=== PATIENT | male | born 1960 | race Caucasian/White ===

== ENCOUNTER 2016-09-23 20:09 | Inpatient (IN) | payer MEDICARE ==
[2016-09-23] MEDS ORDERED: KETOROLAC 30 MG/ML 1 ML VIAL IVP STA (21:10)
--- NOTE | 2016-09-23 21:17 | ED ---
Extremity Problem HPI - General Chief complaint: Extremity Problem,Nontraumatic Stated complaint: Foot Pain Time Seen by Provider: 09/23/16 20:58 Source: patient, RN notes reviewed Mode of arrival: wheelchair Limitations: no limitations - History of Present Illness Initial comments: This patient is a 56-year-old man who presents to be evaluated for left foot pain and swelling. The patient is a not a good historian, not able to give most of the details of his recent history, and asks his daughter to provide most of the details. He is able to state that the pain is constant, burning and aching, moderately severe, but gets worse if he attempts to walk or if anything touches his foot. He denies any relieving factors. Patient's daughter is able to state that he had been admitted at [facility] last week, he had a duplex study of his leg that did not show blood clot , and they were discharged after few days. They were told that he was sepsis but were not told the locus of any infection. The patient states that the pain has not improved and that it may be a little worse than when he went in the hospital. They did try to see a vascular surgeon who directed them to come to the emergency department. MD Complaint: extremity pain, extremity swelling Onset/Timin -: month(s) Location: left, lower extremity History of Same: Yes (1 month) Quality: burning, aching Consistency: constant Improves with: nothing Worsens with: weight bearing, walking, palpation Associated Symptoms: denies other symptoms - Related Data Home Medications Medication Instructions Recorded Confirmed Atorvastatin [Lipitor] 40 mg PO HS 09/23/16 09/23/16 Benazepril HCl 20 mg PO DAILY 09/23/16 09/23/16 Citalopram Hydrobromide [CeleXA] 20 mg PO DAILY 09/23/16 09/23/16 Doxycycline Monohydrate [Monodox] 100 mg PO BID 09/23/16 09/23/16 Glimepiride [Amaryl] 1 mg PO AC-BRKFST 09/23/16 09/23/16 Magnesium 400 mg PO DAILY 09/23/16 09/23/16 Omeprazole 40 mg PO DAILY 09/23/16 09/23/16 Potassium Chloride [K-Tab ER] 10 meq PO DAILY 09/23/16 09/23/16 Tamsulosin HCl [Flomax] 0.4 mg PO DAILY 09/23/16 09/23/16 metFORMIN HCL 1,000 mg PO BID 09/23/16 09/23/16 Allergies Allergy/AdvReac Type Severity Reaction Status Date / Time No Known Allergies Allergy Verified 09/23/16 20:52 Review of Systems ROS Statement: Those systems with pertinent positive or pertinent negative responses have been documented in the HPI. ROS Other: All systems not noted in ROS Statement are negative. Constitutional: Denies: fever, chills Respiratory: Denies: cough, dyspnea Cardiovascular: Denies: chest pain, palpitations, syncope Gastrointestinal: Denies: abdominal pain, vomiting, diarrhea Musculoskeletal: Denies: back pain Skin: Denies: rash, lesions Neurological: Denies: headache, weakness, numbness, paresthesias Past Medical History Past Medical History: Diabetes Mellitus, Hyperlipidemia, Hypertension History of Any Multi-Drug Resistant Organisms: None Reported Past Surgical History: Appendectomy, Hernia Repair, Joint Replacement Additional Past Surgical History / Comment(s): right knee Past Psychological History: Depression Smoking Status: Current every day smoker Past Alcohol Use History: None Reported Past Drug Use History: None Reported General Exam Limitations: no limitations General appearance: alert, in no apparent distress Head exam: Present: atraumatic, normocephalic, normal inspection Eye exam: Present: normal appearance. Absent: scleral icterus, conjunctival injection ENT exam: Present: mucous membranes dry Neck exam: Present: normal inspection Respiratory exam: Present: normal lung sounds bilaterally. Absent: respiratory distress, wheezes, rales, rhonchi, stridor Cardiovascular Exam: Present: regular rate, normal rhythm, normal heart sounds. Absent: systolic murmur, diastolic murmur, rubs, gallop GI/Abdominal exam: Present: soft. Absent: tenderness, guarding, rebound Extremities exam: Present: tenderness, other (The patient has some soft tissue swelling to the dorsum of the left foot as well as some mild erythema. There also 2 small vesicles to the dorsum of foot with clear fluid. There is tenderness to palpation of the dorsum of the foot and also up to the ankle and the distal calf area. Patient has pain with passive range of motion, and refuses active range of motion at the ankle.) Back exam: Present: normal inspection. Absent: CVA tenderness (R), CVA tenderness (L) Neurological exam: Present: alert. Absent: motor sensory deficit Skin exam: Present: warm, dry, intact, erythema (Dorsum of left foot), vesicles (Dorsum of left foot). Absent: cyanosis, diaphoretic, petechiae, pallor, mottled Course Vital Signs 09/23/16 09/23/16 09/24/16 20:16 22:56 00:00 Temperature 96.9 F L 98.7 F Pulse Rate 79 71 Respiratory 18 18 16 Rate Blood Pressure 157/85 138/72 O2 Sat by Pulse 97 99 Oximetry Medical Decision Making - Lab Data Result diagrams: 09/23/16 21:25 09/23/16 21:25 Lab Results 09/23/16 09/23/16 09/23/16 Range/Units 21:25 21:25 21:25 WBC 7.7 (3.8-10.6) k/uL RBC 4.34 (4.30-5.90) m/uL Hgb 12.3 L (13.0-17.5) gm/dL Hct 38.2 L (39.0-53.0) % MCV 87.9 (80.0-100.0) fL MCH 28.4 (25.0-35.0) pg MCHC 32.3 (31.0-37.0) g/dL RDW 14.3 (11.5-15.5) % Plt Count 292 (150-450) k/uL Neutrophils % 64 % Lymphocytes % 24 % Monocytes % 5 % Eosinophils % 5 % Basophils % 1 % Neutrophils # 4.9 (1.3-7.7) k/uL Lymphocytes # 1.9 (1.0-4.8) k/uL Monocytes # 0.4 (0-1.0) k/uL Eosinophils # 0.4 (0-0.7) k/uL Basophils # 0.1 (0-0.2) k/uL D-Dimer (<0.60) mg/L FEU Sodium 139 (137-145) mmol/L Potassium 4.2 (3.5-5.1) mmol/L Chloride 104 (98-107) mmol/L Carbon Dioxide 26 (22-30) mmol/L Anion Gap 9 mmol/L BUN 8 L (9-20) mg/dL Creatinine 0.70 (0.66-1.25) mg/dL Est GFR (MDRD) Af Amer >60 (>60 ml/min/1.73 sqM) Est GFR (MDRD) Non-Af >60 (>60 ml/min/1.73 sqM) Glucose 120 H (74-99) mg/dL Plasma Lactic Acid Jose 1.4 (0.7-2.0) mmol/L Calcium 9.7 (8.4-10.2) mg/dL C-Reactive Protein 48.1 H (<10.0) mg/L 09/23/16 Range/Units 21:25 WBC (3.8-10.6) k/uL RBC (4.30-5.90) m/uL Hgb (13.0-17.5) gm/dL Hct (39.0-53.0) % MCV (80.0-100.0) fL MCH (25.0-35.0) pg MCHC (31.0-37.0) g/dL RDW (11.5-15.5) % Plt Count (150-450) k/uL Neutrophils % % Lymphocytes % % Monocytes % % Eosinophils % % Basophils % % Neutrophils # (1.3-7.7) k/uL Lymphocytes # (1.0-4.8) k/uL Monocytes # (0-1.0) k/uL Eosinophils # (0-0.7) k/uL Basophils # (0-0.2) k/uL D-Dimer 0.92 H (<0.60) mg/L FEU Sodium (137-145) mmol/L Potassium (3.5-5.1) mmol/L Chloride (98-107) mmol/L Carbon Dioxide (22-30) mmol/L Anion Gap mmol/L BUN (9-20) mg/dL Creatinine (0.66-1.25) mg/dL Est GFR (MDRD) Af Amer (>60 ml/min/1.73 sqM) Est GFR (MDRD) Non-Af (>60 ml/min/1.73 sqM) Glucose (74-99) mg/dL Plasma Lactic Acid Jose (0.7-2.0) mmol/L Calcium (8.4-10.2) mg/dL C-Reactive Protein (<10.0) mg/L Disposition Clinical Impression: Cellulitis Disposition: ADMITTED IP TO THIS HOSP Condition: Fair
[2016-09-23 21:38] LABS: Basophils # (A) 0.1 k/uL (0-0.2); Basophils % (A) 1 %; CH 28.9; Eosinophils # (A) 0.4 k/uL (0-0.7); Eosinophils % (A) 5 %; HCT 38.2 % (39.0-53.0); HDW 2.79; HGB 12.3 gm/dL (13.0-17.5); Luc # (Auto) 0.14; Luc % (Auto) 2; Lymphocytes # (A) 1.9 k/uL (1.0-4.8); Lymphocytes % (A) 24 %; MCH 28.4 pg (25.0-35.0); MCHC 32.3 g/dL (31.0-37.0); MCV 87.9 fL (80.0-100.0); Mean Platelet Volume 6.2; Monocytes # (A) 0.4 k/uL (0-1.0); Monocytes % (A) 5 %; Neutrophils # (A) 4.9 k/uL (1.3-7.7); Neutrophils % (A) 64 %; RBC 4.34 m/uL (4.30-5.90); RDW 14.3 % (11.5-15.5); WBC 7.7 k/uL (3.8-10.6); WBC (Perox) 7.47
[2016-09-23 22:10] LABS: Anion Gap 9 mmol/L; Blood Urea Nitrogen 8 mg/dL (9-20); C Reactive Protein 48.1 mg/L (<10.0); Calcium 9.7 mg/dL (8.4-10.2); Carbon Dioxide 26 mmol/L (22-30); Chloride 104 mmol/L (98-107); Glucose 120 mg/dL (74-99); Non-African American GFR(MDRD) >60 (>60 ml/min/1.73 sqM); Potassium 4.2 mmol/L (3.5-5.1); Sodium 139 mmol/L (137-145)
--- NOTE | 2016-09-23 22:11 | US ---
EXAMINATION TYPE: US venous doppler duplex LE LT DATE OF EXAM: 09/23/2016 10:03 PM COMPARISON: NONE CLINICAL HISTORY: Pain. Redness, swelling left foot SIDE PERFORMED: Left VESSELS IMAGED: External Iliac Vein (EIV) Common Femoral Vein Deep Femoral Vein Greater Saphenous Vein * Femoral Vein Popliteal Vein Small Saphenous Vein * Proximal Calf Veins (* superficial vessels) TECHNOLOGIST IMPRESSION: Left Leg: Negative for DVT IMPRESSION: Normal exam. No evidence of deep venous thrombosis in the left leg.
[2016-09-23] MEDS ORDERED: RX INFO: IV CONTRAST WAS GIVEN 1 EACH MISC MISCELLANE PRN (22:54)
--- NOTE | 2016-09-23 23:30 | CT ---
EXAMINATION TYPE: CT chest angio for PE DATE OF EXAM: 09/23/2016 11:20 PM COMPARISON: NONE HISTORY: Chest pain CT DLP: mGycm Automated exposure control for dose reduction was used. CONTRAST: Multiple axial sections were obtained from the thoracic inlet to the diaphragm with intravenous contr ast. The contrast was Omnipaque 90 mL. There are 3-D post processed images. FINDINGS: The lungs are clear of consolidation. There is no evidence of pulmonary mass. There is no pleural eff usion. There is no pericardial effusion. Heart size is fairly normal. I see no filling defects in the pulmonary arteries. There are no hilar masses. There is no mediastina l adenopathy. There is no evidence of thoracic aortic aneurysm or dissection. There is spurring in th e thoracic spine. IMPRESSION: No evidence of pulmonary embolism. Negative exam.
[2016-09-24] MEDS ORDERED: HYDROcodone/APAP 5-325MG 1 EACH TAB PO STA (00:26)
[2016-09-24] MEDS ORDERED: IV VANCOMYCIN PER PHARMACY 1 EACH MISC MISCELLANE PRN (00:37)
[2016-09-24] MEDS ORDERED: VANCOMYCIN 2,000 MG in SODIUM CHLORIDE 0.9% 500 ML IVPB STA (00:43)
[2016-09-24] MEDS ORDERED: NALOXONE 0.4 MG/ML 1 ML VIAL IV PRN (01:42)
[2016-09-24] MEDS ORDERED: ONDANSETRON 4 MG/2 ML VIAL IVP PRN (01:42)
[2016-09-24] MEDS: SODIUM CHLORIDE 0.9% 1,000 ML IV SCH ×3 (03:02→20:03)
[2016-09-24] MEDS: HYDROcodone/APAP 5-325MG 1 EACH TAB PO PRN ×5 (05:05→20:04)
[2016-09-24 06:41] LABS: Glucose,Whole Blood 133 mg/dL (75-99)
[2016-09-24] MEDS: LISINOPRIL 20 MG TAB PO SCH (08:20)
[2016-09-24] MEDS: TAMSULOSIN 0.4 MG CAP.ER.24H PO SCH (08:20)
[2016-09-24] MEDS: FAMOTIDINE 20 MG TAB PO SCH ×2 (08:20→20:03)
[2016-09-24] MEDS: CITALOPRAM HYDROBROMIDE 20 MG TAB PO SCH (08:21)
[2016-09-24] MEDS: HEPARIN SODIUM,PORCINE 5,000 UNIT/ML 1 ML VIAL SQ SCH ×3 (08:21→23:32)
[2016-09-24] MEDS ORDERED: DOXYCYCLINE 50 MG CAP PO SCH (09:00)
[2016-09-24] MEDS: VANCOMYCIN 2,000 MG in SODIUM CHLORIDE 0.9% 500 ML IVPB SCH ×2 (10:59→18:20)
--- NOTE | 2016-09-24 11:19 | XR ---
EXAMINATION TYPE: XR ankle complete LT DATE OF EXAM: 09/24/2016 10:53 AM COMPARISON: NONE HISTORY: Ankle pain swelling TECHNIQUE: 3 views left ankle FINDINGS: Diffuse soft tissue swelling is present. No acute fractures are evident. Plantar and Achill es tendon calcaneal heel spurs are present. Ankle mortise is intact. Follow-up study can be performed 7-10 days from acute trauma for continued pain. IMPRESSION: 1. No acute osseous abnormality. 2. Soft tissue swelling. 3. Calcaneal heel spurs.
[2016-09-24] MEDS: MAGNESIUM OXIDE 400 MG TAB PO SCH (11:53)
[2016-09-24] MEDS ORDERED: INFLUENZA VACCINE (3YR+) 60 MCG/0.5 ML SYRINGE IM ONE (11:54)
--- NOTE | 2016-09-24 12:00 | P.CNOR ---
History of Present Illness - HPI Consult date: 09/24/16 Requesting physician: Sanjay Mckeon Consult reason: joint pain (foot, ankle) History of present illness: Patient is 56 year old man seen at bedside this am in consultion for left foot, ankle, lower leg pain and swelling. He states it has been ongoing for a few weeks. He denies recent trauma. He states that he was treated at [facility] for a few days and released after doppler was negative and had IV antibiotics. He has continued foot, ankle, and leg pain with weight bearing and ambulating. He denies current fever, chills, calf pain, shortness breath, numbness, tingling, cough, chest pain or other. Review of Systems All systems: negative Constitutional: Denies chills, Denies fever Eyes: denies blurred vision, denies pain Ears, nose, mouth and throat: Denies headache, Denies sore throat Cardiovascular: Denies chest pain, Denies shortness of breath Respiratory: Denies cough Gastrointestinal: Denies abdominal pain, Denies diarrhea, Denies nausea, Denies vomiting Musculoskeletal: Denies myalgias Integumentary: Denies pruritus, Denies rash Neurological: Denies numbness, Denies weakness Psychiatric: Denies anxiety, Denies depression Endocrine: Denies fatigue, Denies weight change Past Medical History Past Medical History: Diabetes Mellitus, Hyperlipidemia, Hypertension History of Any Multi-Drug Resistant Organisms: None Reported Past Surgical History: Appendectomy, Hernia Repair, Joint Replacement Additional Past Surgical History / Comment(s): right knee Past Anesthesia/Blood Transfusion Reactions: No Reported Reaction Past Psychological History: Depression Smoking Status: Current every day smoker Past Alcohol Use History: None Reported Past Drug Use History: None Reported - Past Family History Mother Family Medical History: Dementia, Diabetes Mellitus, Hyperlipidemia Medications and Allergies Home Medications Medication Instructions Recorded Confirmed Type Atorvastatin [Lipitor] 40 mg PO HS 09/23/16 09/23/16 History Benazepril HCl 20 mg PO DAILY 09/23/16 09/23/16 History Citalopram Hydrobromide [CeleXA] 20 mg PO DAILY 09/23/16 09/23/16 History Doxycycline Monohydrate [Monodox] 100 mg PO BID 09/23/16 09/23/16 History Glimepiride [Amaryl] 1 mg PO AC-BRKFST 09/23/16 09/23/16 History Magnesium 400 mg PO DAILY 09/23/16 09/23/16 History Omeprazole 40 mg PO DAILY 09/23/16 09/23/16 History Potassium Chloride [K-Tab ER] 10 meq PO DAILY 09/23/16 09/23/16 History Tamsulosin HCl [Flomax] 0.4 mg PO DAILY 09/23/16 09/23/16 History metFORMIN HCL 1,000 mg PO BID 09/23/16 09/23/16 History Allergies Allergy/AdvReac Type Severity Reaction Status Date / Time No Known Allergies Allergy Verified 09/23/16 20:52 Physical Examination Mild to moderate diffuse edema is seen at the left lower leg ankle and foot. There is mild erythema. No deformity. Not excessively hot to touch. No fluctuance. Sensation to light touch is intact throughout the lower extremity. He is actively able to dorsiflex and plantarflex the toes and foot but is limited due to pain. The ankle and foot are ligamentously stable. The calf is relatively soft and nontender. There is adequate capillary refill and dorsalis pedis pulse. Results - Labs Labs: Abnormal Lab Results - Last 24 Hours (Table) 09/24/16 Range/Units 06:40 POC Glucose (mg/dL) 133 H (75-99) mg/dL Result Diagrams: 09/23/16 21:25 09/23/16 21:25 Assessment and Plan (1) Cellulitis Narrative/Plan: I have ordered xrays of the foot, ankle and leg. Suspect this is cellulitis that we will monitor. He is currently on IV Vancomycin. Continue pain management and elevation. Will follow and make further recommendations as appropriate. No surgical intervention is planned for now. Thank you for consult. Status: Acute Time with Patient: Less than 30
[2016-09-24] MEDS ORDERED: KETOROLAC 30 MG/ML 1 ML VIAL IVP PRN (12:02)
[2016-09-24 12:18] LABS: Glucose,Whole Blood 123 mg/dL (75-99)
--- NOTE | 2016-09-24 12:56 | HP ---
DATE OF ADMISSION: Patient is a 56-year-old admitted with left foot pain and swelling, has been going on for a few days. Patient does not have any typical symptoms or signs of cellulitis. Patient had severe pain and tenderness, 10/10 sharp pain in the leg with some redness although patient's redness does not look like typical cellulitis. No localized of temperature. Patient was started on vancomycin, admitted here. Patient has elevated d-dimer, because of which patient had a CT angio of chest which was negative. Patient has quite a bit of tenderness upon touching the foot and Doppler of the lower extremity is negative for DVT. Patient denied any fever, chills. Patient denied any nausea, vomiting, abdominal pain. My suspicion is low that this is cellulitis. Patient had an ankle x-ray and tibia, fibular x-ray which are pending. Patient has soft tissue swelling and calcaneal spurs and Orthopedic Surgery evaluated the patient. As my suspicion is significantly low for cellulitis, I will go ahead and consult Orthopedic Surgery. It does not look like patient has necrotizing fasciitis. Patient does not have any leukocytosis and does not look toxic. The differentials being septic arthritis, although as mentioned above, patient does not have any leukocytosis or fever. I could be related to gouty arthritis or osteoarthritis. I am awaiting x-rays and recommendations from Orthopedic Surgery. Patient is already on ketorolac, which will be continued. REVIEW OF SYSTEMS: REVIEW OF SYSTEMS: CONSTITUTIONAL: No fever, no malaise, no fatigue. HEENT: No recent visual problems or hearing problems. Denied any sore throat. CARDIOVASCULAR: No chest pain, orthopnea, PND, no palpitations, no syncope. PULMONARY: No shortness of breath, no cough, no hemoptysis. GASTROINTESTINAL: No diarrhea, no nausea, no vomiting, no abdominal pain. Normoactive bowel sounds. NEUROLOGICAL: No headaches, no weakness, no numbness. HEMATOLOGICAL: Denies any bleeding or petechiae. GENITOURINARY: Denies any burning micturition, frequency, or urgency. MUSCULOSKELETAL/RHEUMATOLOGICAL: Denies any joint pain, swelling, or any muscle pain. ENDOCRINE: Denies any polyuria or polydipsia. EXTREMITIES: As described in HPI. The rest of the 14 point review of systems is negative. Home medications include: 1. Atorvastatin. 2. Benazepril. 3. Citalopram. 4. Doxycycline which patient appears to be using this medication for his bronchitis. 5. Glimepiride. 6. Magnesium. 7. Omeprazole. 8. Potassium chloride. 9. Tamsulosin. 10. Metformin. ALLERGIES: No known drug allergies. PAST MEDICAL HISTORY: Significant for diabetes mellitus, hyperlipidemia, hypertension, obesity, benign prostatic hypertrophy, gastroesophageal reflux disease, depression. Patient had appendectomy, hernia repair, and joint replacement surgery and right knee surgery. SOCIAL HISTORY: Patient does smoke. Denied any alcohol abuse or any drug abuse. FAMILY HISTORY: Significant for diabetes mellitus in multiple family members, dementia and hyperlipidemia. PHYSICAL EXAMINATION: Temperature 98.5, pulse of 60, respiratory rate of 16, blood pressure is 147/76, saturating at 94% on room air. GENERAL: The patient is alert and oriented x3, not in any acute distress. Well developed, well nourished. HEENT: Pupils are round and equally reacting to light. EOMI. No scleral icterus. No conjunctival pallor. Normocephalic, atraumatic. No pharyngeal erythema. No thyromegaly. CARDIOVASCULAR: S1 and S2 present. No murmurs, rubs, or gallops. PULMONARY: Chest is clear to auscultation, no wheezing or crackles. ABDOMEN: Soft, nontender, nondistended, normoactive bowel sounds. No palpable organomegaly. MUSCULOSKELETAL: No joint swelling or deformity. NEUROLOGICAL: Gross neurological examination did not reveal any focal deficits. SKIN: No rashes. EXTREMITIES: Left lower extremity showed significant swelling of the left foot and tenderness on the dorsum of the foot and redness without any localized of temperature and redness extends up to the ankle and distal calf area LABORATORY DATA: CBC, CMP essentially within normal limits. D-dimer is elevated. CT angio of the chest as mentioned above, C-reactive protein is elevated. ASSESSMENT AND PLAN: 1. Left foot swelling and redness. The differentials being: A. Severe osteoarthritis. B. Gouty arthritis. C. Possibility of septic arthritis is low. D. It can be a possibly of cellulitis. E. Significantly low possibility is necrotizing fasciitis. Patient will be continued on antibiotics, will get ( ) of Orthopedic Surgery as well as Infectious Disease. 2. Diabetes mellitus. 3. Hypertension. 4. Hyperlipidemia. 5. Gastroesophageal reflux disease. 6. Benign prostatic hypertrophy. For above mentioned chronic medical problems, I will go ahead and continue his home medications. Doxycycline will be discontinued and regarding depression, citalopram will be continued.
--- NOTE | 2016-09-24 13:32 | XR ---
EXAMINATION TYPE: XR foot complete LT DATE OF EXAM: 09/24/2016 10:53 AM COMPARISON: NONE HISTORY: Swelling, pain TECHNIQUE: 3 view left foot FINDINGS: No acute displaced fractures are evident. Calcaneal heel spurs are present. Joint spaces ap pear preserved. Some mild soft tissue swelling may be present over the dorsum of the foot. IMPRESSION: 1. Mild soft tissue swelling. 2. No acute osseous abnormality. 3. Calcaneal heel spurs.
[2016-09-24 17:05] LABS: Glucose,Whole Blood 106 mg/dL (75-99)
--- NOTE | 2016-09-24 17:20 | XR ---
EXAMINATION TYPE: XR tibia fibula LT DATE OF EXAM: 09/24/2016 10:53 AM COMPARISON: NONE HISTORY: Leg swelling, pain TECHNIQUE: 2 views left tibia and fibula FINDINGS: Soft tissue swelling is at the ankle greater along the lateral malleolus. Degenerative join t changes are at the knee. Calcaneal heel spurs are present. Soft tissues are otherwise unremarkable. Patellofemoral joint space spurring is present. IMPRESSION: 1. Degenerative changes at the knee. 2. Soft tissue swelling lateral malleolus. 3. An acute fracture is not identified.
[2016-09-24 20:24] LABS: Glucose,Whole Blood 93 mg/dL (75-99)
[2016-09-24] MEDS ORDERED: ATORVASTATIN 40 MG TAB PO SCH (21:00)
[2016-09-25] MEDS: SODIUM CHLORIDE 0.9% 1,000 ML IV SCH ×3 (01:55→15:51)
[2016-09-25] MEDS: HYDROcodone/APAP 5-325MG 1 EACH TAB PO PRN ×4 (01:55→17:02)
[2016-09-25] MEDS: VANCOMYCIN 2,000 MG in SODIUM CHLORIDE 0.9% 500 ML IVPB SCH ×2 (01:56→09:23)
[2016-09-25 07:10] LABS: Glucose,Whole Blood 99 mg/dL (75-99)
[2016-09-25 07:35] VITALS: BP 147/88; PULSE 72; RESP 16; TEMP 98
[2016-09-25] MEDS: FAMOTIDINE 20 MG TAB PO SCH (08:03)
[2016-09-25] MEDS: LISINOPRIL 20 MG TAB PO SCH (08:03)
[2016-09-25] MEDS: TAMSULOSIN 0.4 MG CAP.ER.24H PO SCH (08:03)
[2016-09-25] MEDS: HEPARIN SODIUM,PORCINE 5,000 UNIT/ML 1 ML VIAL SQ SCH ×2 (08:03→14:59)
[2016-09-25] MEDS: CITALOPRAM HYDROBROMIDE 20 MG TAB PO SCH (08:03)
[2016-09-25] MEDS ORDERED: VANCOMYCIN TROUGH DUE 1 EACH MISC MISCELLANE ONE (09:00)
[2016-09-25 09:35] LABS: Basophils # (A) 0.1 k/uL (0-0.2); Basophils % (A) 1 %; CH 28.8; Eosinophils # (A) 0.4 k/uL (0-0.7); Eosinophils % (A) 6 %; HGB 11.7 gm/dL (13.0-17.5); Luc # (Auto) 0.09; Luc % (Auto) 2; Lymphocytes # (A) 1.4 k/uL (1.0-4.8); Lymphocytes % (A) 25 %; MCH 28.6 pg (25.0-35.0); MCHC 32.6 g/dL (31.0-37.0); MCV 87.8 fL (80.0-100.0); Mean Platelet Volume 7.4; Monocytes # (A) 0.2 k/uL (0-1.0); Monocytes % (A) 4 %; Neutrophils # (A) 3.6 k/uL (1.3-7.7); Neutrophils % (A) 63 %; RDW 14.1 % (11.5-15.5); WBC 5.8 k/uL (3.8-10.6); WBC (Perox) 5.77
[2016-09-25 09:37] LABS: Anion Gap 8 mmol/L; Blood Urea Nitrogen 10 mg/dL (9-20); Calcium 9.5 mg/dL (8.4-10.2); Carbon Dioxide 22 mmol/L (22-30); Chloride 108 mmol/L (98-107); Glucose 152 mg/dL (74-99); Non-African American GFR(MDRD) >60 (>60 ml/min/1.73 sqM); Potassium 4.6 mmol/L (3.5-5.1); Sodium 138 mmol/L (137-145)
[2016-09-25] MEDS: MAGNESIUM OXIDE 400 MG TAB PO SCH (11:11)
[2016-09-25 12:02] LABS: Glucose,Whole Blood 99 mg/dL (75-99)
--- NOTE | 2016-09-25 13:52 | P.PN ---
Subjective Principal diagnosis: Left foot ankle pain and swelling Patient is seen at bedside today. He's had ongoing left foot ankle pain and swelling. X-rays were obtained of the leg ankle and foot. They show to be negative for fractures, lesions or dislocations. There show that he has osteoarthritis of the ankle and foot joints. He continues to have pain and some swelling today in the foot and ankle. He is denying fever or chills. He denies calf pain. He also denies acute numbness or tingling. He has no new complaints today. Objective - Vital Signs Vital signs: Vital Signs Temp 98.0 F 09/25/16 07:00 Pulse 72 09/25/16 07:00 Resp 16 09/25/16 07:00 BP 147/88 09/25/16 07:00 Pulse Ox 95 09/25/16 07:00 Intake & Output 09/24/16 09/25/16 09/25/16 18:59 06:59 18:59 Intake Total 1540 Output Total 1600 Balance -60 Intake: Oral 1540 Output: Urine 1600 Other: Voiding Method Toilet Urinal # Voids 3 - Exam There is diffuse edema of the ankle and foot. There is minimal erythema. There is no ecchymoses. He has mild diffuse tenderness throughout the foot and ankle. Sensation to light touch is intact throughout the lower leg, foot and toes. Motor is intact with plantarflexion and dorsiflexion of the ankle, foot and toes. Ankle is ligamentously stable. There is no deformity. 1+ dorsalis pedis pulse present less than 2 second cap refill present. Calf is soft and nontender. - Constitutional General appearance: Present: no acute distress - Psychiatric Psychiatric: Present: A&O x's 3, appropriate affect, intact judgment & insight - Labs CBC & Chem 7: 09/25/16 08:54 09/25/16 08:54 Labs: Abnormal Lab Results - Last 24 Hours (Table) 09/24/16 09/25/16 09/25/16 Range/Units 17:03 08:54 08:54 RBC 4.10 L (4.30-5.90) m/uL Hgb 11.7 L (13.0-17.5) gm/dL Hct 36.0 L (39.0-53.0) % Chloride 108 H (98-107) mmol/L Glucose 152 H (74-99) mg/dL POC Glucose (mg/dL) 106 H (75-99) mg/dL - Imaging and Cardiology Xrays of foot, ankle and leg are negative for fractures or lesions. there is eveidence of osteoarthritis of the heel, foot, and ankle. Mild soft tissue swelling evident. Assessment and Plan (1) Cellulitis Narrative/Plan: He is afebrile, has a normal white count and there doesn't appear to be an infectious process. Xrays are negative for fracture. Will start him on indomethicin for OA and gout treatment. Continue pain management and elevation. Antibiotics per IM team. Will follow and make further recommendations as appropriate. No surgical intervention is planned for now. Should he not improve , may consider MRI of the foot and ankle. Status: Acute (2) Osteoarthritis of foot, left Status: Acute Time with Patient: Less than 30
[2016-09-25] MEDS ORDERED: INDOMETHACIN 25 MG CAP PO SCH (16:00)
--- NOTE | 2016-09-25 16:44 | CONS ---
DATE OF CONSULTATION: 09/25/2016 REASON FOR CONSULTATION: Left ankle pain and swelling with question of cellulitis. HISTORY OF PRESENT ILLNESS: The patient is a 56-year-old male who was brought into the ER on 09/23/2016 with chief complaints of left foot pain and swelling. Apparently his symptoms have been going on for about a few days prior to presentation to the hospital. Patient denies having any trauma to the ankle area or any twisting of the ankle. No falls. He did have mostly swelling and pain. Pain is described to be constant burning and worse when he walks on it. Unable to touch it. The patient denies any high-grade fever, rigors or chills. Subsequently, the patient has been evaluated by the ER physician. The patient did have extensive work-up including extremity Doppler which was negative for DVT. Ankle x-ray was showing some soft tissue swelling. Patient did not have any fever. On arrival to the ER temperature was 96.9 and did not have an elevated white count. White count was normal at 7.7. Subsequently, patient has been admitted to the hospital. The patient has been started on broad spectrum antibiotics in the form of vancomycin. I was asked to see the patient for further recommendation regarding antibiotic therapy. Patient does give a history of recent admission to [facility] for sepsis, although the patient is not sure exactly the source. He says at one time it was pneumonia, but he is not sure what antibiotic he was treated with you. REVIEW OF SYSTEMS: CONSTITUTIONAL: Positive for weakness but no fever or chills. EYES: No complaint. ENT: No complaint. RESPIRATORY: No complaint. CARDIOVASCULAR: No complaint. GENITOURINARY: No complaint. GASTROINTESTINAL: No complaint. MUSCULOSKELETAL: As per HPI. INTEGUMENTARY: As per HPI. PSYCHOLOGIC: No complaint. ENDOCRINE: No complaint. NEUROLOGIC: No complaint. PAST MEDICAL HISTORY: Hypertension, hyperlipidemia, diabetes melitis and this admission to [facility] for possible sepsis pneumonia. PAST SURGICAL HISTORY: Right ankle increased pain, appendectomy and hernia repair. SOCIAL HISTORY: The patient currently every day smoker. Denies drinking or drug use. FAMILY HISTORY: No pertinent findings noticed. ALLERGIES: No known drug allergies. Medications currently include the patient is on [place], Lipitor, Celexa, Pepcid, heparin, Indocin, Zestril, Mag oxide, Narcan, Zofran, Flomax and vancomycin. On examination, blood pressure is 147/88 with a pulse of 72, temperature 98. He is 95% on room air. General description is a middle-age male lying in bed in no distress. No tachypnea or accessory muscle of respiration use. HEENT examination shows slight pallor. There is no scleral icterus. Oral mucous membrane is membranes dry. NECK: Trachea central. There is no thyromegaly. LUNGS: Unlabored breathing. Clear to auscultation anteriorly. No wheeze or crackle. HEART: S1, S2. Regular rate and rhythm. ABDOMEN: Soft, no tenderness. No guarding or rigidity. EXTREMITIES: On the left leg he has about 2+ edema of feet. The ankle is slightly swollen. I did not appreciate any redness or any warmth to touch. There was no skin breakdown. There is no drainage. NEUROLOGICAL: The patient is awake, alert, oriented x3. Mood and affect normal. LABS: Hemoglobin is 11.7, white count 5.8 with a BUN of 10, creatinine 0.80. Electrolytes have been normal. Uric acid was not checked. Vanco trough was 27. Blood culture has been negative. X-rays of the ankle joint as mentioned above. Diagnostic impression and plan: Patient with left ankle swelling and pain, could more likely be secondary to underlying osteoarthritis or a gouty arthritis needs to be ruled out. Clinically doubt cellulitis or any joint infection as the patient is not running any fever. There is no significant redness of the ankle area and no elevated white count. PLAN: 1. Vancomycin can be safely discontinued. 2. Will check a uric acid level and may benefit from antiinflammatory medication. 3. If no improvement or any worsening pain, he may benefit from MRI of the ankle joint. 4. Will follow up on his clinical condition to further adjust the medication if needed. Plan of care was discussed in detail with the attending on the floor.
[2016-09-25] MEDS ORDERED: VANCOMYCIN 2,000 MG in SODIUM CHLORIDE 0.9% 500 ML IVPB SCH (21:00)
--- NOTE | 2016-09-26 12:35 | P.DS ---
Providers Date of admission: 09/24/16 01:42 Expected date of discharge: 09/25/16 Attending physician: Mara Maxwell. Consults: 09/24/16 14:50 Consult Physician Routine Consulting Provider: Radha Lehman Consult Reason/Comments: septic arthritis vs cellulitis Do you want consulting provider notified?: Yes Dr. Mckeon, Orthopedics Primary care physician: Jenna [place] Hospital Course: Final Diagnoses: 1. Left foot edema, redness, related to acute Osteoarthritis of the left foot with suspected gout. Doubt cellulitis or infectious process given clinical presentation. Afebrile with normal WBC, insignificant redness of ankle area. 2. Diabetes mellitus 3. Hypertension 4. Hyperlipidemia 5. Gastroesophageal reflux disease 6. Benign prostatic hypertrophy Hospital course: This a 56-year-old gentleman admitted with severe left foot pain, tenderness without typical signs or symptoms of cellulitis, afebrile, normal WBC, extremity without localized temperature. Treated empirically with vancomycin. Elevated d-dimer, negative CTA of chest. Doppler negative for DVT. X-rays of foot, ankle and leg negative for fractures, dislocations or lesions but with evidence of osteoarthritis of the heel, foot and ankle with mild soft tissue swelling present. No numbness or tingling .Indocin added to med regime with significant clinical improvement. Pain controlled with both Toradol and [place]. Evaluated by both infectious disease and orthopedics. Vancomycin discontinued as per ID. Uric acid level ordered and pending. If condition should worsen, patient may benefit from MRI. Patient has been cleared for discharge by both orthopedic and infectious disease. Patient is being discharged home in a stable condition with guarded prognosis. The impression and plan of care has been dictated as directed. : I performed a H&P examination of this patient and discussed the same with the dictator. I agree with the dictator's note. Any additional findings/opinions/ etc. will be noted. Patient Condition at Discharge: Stable Plan - Discharge Summary New Discharge Prescriptions: HYDROcodone/APAP 5-325MG [[place] 5-325] 1 each PO Q4HR PRN #20 tab PRN Reason: Moderate Pain Indomethacin [Indocin] 50 mg PO TID #84 cap Discharge Medication List Atorvastatin [Lipitor] 40 mg PO HS 09/23/16 [History] Benazepril HCl 20 mg PO DAILY 09/23/16 [History] Citalopram Hydrobromide [CeleXA] 20 mg PO DAILY 09/23/16 [History] Glimepiride [Amaryl] 1 mg PO [id number] 09/23/16 [History] Magnesium 400 mg PO DAILY 09/23/16 [History] Omeprazole 40 mg PO DAILY 09/23/16 [History] Potassium Chloride [K-Tab ER] 10 meq PO DAILY 09/23/16 [History] Tamsulosin HCl [Flomax] 0.4 mg PO DAILY 09/23/16 [History] metFORMIN HCL 1,000 mg PO BID 09/23/16 [History] HYDROcodone/APAP 5-325MG [[place] 5-325] 1 each PO Q4HR PRN #20 tab 09/25/16 [Rx] Indomethacin [Indocin] 50 mg PO TID #84 cap 09/25/16 [Rx] Follow up Appointment(s)/Referral(s): Jenna Sandhu MD [Primary Care Provider] - 3 Days Sanjay Mckeon MD [STAFF PHYSICIAN] - As Needed Patient Instructions/Handouts: Cellulitis (DC), Type 2 Diabetes in Adults (DC) Activity/Diet/Wound Care/Special Instructions: Regarding weightbearing, refer to orthopedics recommendations. Diet: Consistent carb Accu-Cheks before meals and at bedtime, Discharge Disposition: HOME SELF-CARE
[2016-09-26 13:17] LABS: Uric Acid 4.5 mg/dL (3.5-8.5)
== END 2016-09-25 17:47 | disposition home or self-care (01) | DRG 554 ==
LOC: EC 20:09 → 4MS4W 09-24 01:42
PROVIDERS: ADMIT Hospitalist; ATTEND Hospitalist
PROC: 3E0234Z Introduction of Serum, Toxoid and Vaccine into Muscle, Percutaneous Approach (ICD-10-PCS; principal; 2016-09-24)
DX: M19.072 Primary osteoarthritis, left ankle and foot (principal); Z68.41 Body mass index [BMI] 40.0-44.9, adult; E66.9 Obesity, unspecified; Z71.3 Dietary counseling and surveillance; M10.9 Gout, unspecified; M77.32 Calcaneal spur, left foot; Z23 Encounter for immunization; F32.9 Major depressive disorder, single episode, unspecified; I10 Essential (primary) hypertension; E11.9 Type 2 diabetes mellitus without complications; E78.5 Hyperlipidemia, unspecified; N40.0 Benign prostatic hyperplasia without lower urinary tract symptoms; F17.200 Nicotine dependence, unspecified, uncomplicated; K21.9 Gastro-esophageal reflux disease without esophagitis; Z79.84 Long term (current) use of oral hypoglycemic drugs; Z79.899 Other long term (current) drug therapy
CPT/HCPCS: 36415; 71275; 80048; 80202; 83605; 84550; 85025; 85379; 86140; 87040; 90686; 96365; 96366; 96375; 99285

== ENCOUNTER → 2016-10-18 | Outpatient (CLI) | payer MEDICARE ==
--- NOTE | 2016-10-18 13:25 | US ---
EXAMINATION TYPE: US venous doppler duplex LE LT DATE OF EXAM: 10/18/2016 1:03 PM COMPARISON: NONE CLINICAL HISTORY: I80.9 Phlebitis, M79.662 LLE pain. SIDE PERFORMED: Left VESSELS IMAGED: External Iliac Vein (EIV) Common Femoral Vein Deep Femoral Vein Greater Saphenous Vein * Femoral Vein Popliteal Vein Small Saphenous Vein * Proximal Calf Veins (* superficial vessels Left Leg: Negative for DVT IMPRESSION: 1. No evidence of DVT as visualized.
== END | disposition home or self-care (01) ==
LOC: RADUSWWP 12:38
PROVIDERS: ATTEND Orthopaedic Surgery
DX: I80.9 Phlebitis and thrombophlebitis of unspecified site (principal); M79.672 Pain in left foot; E11.9 Type 2 diabetes mellitus without complications; M79.662 Pain in left lower leg

== ENCOUNTER 2016-12-11 17:08 | Inpatient (IN) | payer MEDICARE ==
[2016-12-11] MEDS ORDERED: SODIUM CHLORIDE 0.9% 1,000 ML IV STA (18:06)
--- NOTE | 2016-12-11 18:14 | ED ---
Lower Extremity Injury HPI - General Chief Complaint: Extremity Injury, Lower Stated Complaint: Left Foot numbness Time Seen by Provider: 12/11/16 17:53 Source: patient, RN notes reviewed, old records reviewed Mode of arrival: wheelchair Limitations: no limitations - History of Present Illness Initial Comments: This is a 56-year-old male presents emergency Department with chief complaint of one month of left foot and first and second toe pain. Patient reports that the pain is so severe sometimes he wants to shoot himself. Patient states that he does not necessarily feel suicidal he just said this to his family members and to the triage nurse. Patient reports that he has noticed significant swelling starting from the foot up the back of the leg. He reports he occasionally has pain over the lateral aspect of the calf. Patient denies any fever or chills. Reports that he has a history of diabetes, hypertension, hyperlipidemia, hernia repair surgeries and appendix repair surgery. Patient states that this pain initially started after he had his toenails clipped and removed by a strip stamp straightener. Patient reports that since then the pain is became much worse. There pain is mainly over the great and the second toe. - Related Data Home Medications Medication Instructions Recorded Confirmed Atorvastatin [Lipitor] 40 mg PO HS 09/23/16 12/11/16 Benazepril HCl 20 mg PO HS 09/23/16 12/11/16 Citalopram Hydrobromide [CeleXA] 20 mg PO HS 09/23/16 12/11/16 Glimepiride [Amaryl] 1 mg PO HS 09/23/16 12/11/16 Omeprazole 40 mg PO HS 09/23/16 12/11/16 metFORMIN HCL 1,000 mg PO BID 09/23/16 12/11/16 Gabapentin [Neurontin] 200 mg PO HS 12/11/16 12/11/16 Allergies Allergy/AdvReac Type Severity Reaction Status Date / Time No Known Allergies Allergy Verified 12/11/16 17:57 Review of Systems ROS Statement: Those systems with pertinent positive or pertinent negative responses have been documented in the HPI. ROS Other: All systems not noted in ROS Statement are negative. Past Medical History Past Medical History: Diabetes Mellitus, Hyperlipidemia, Hypertension History of Any Multi-Drug Resistant Organisms: None Reported Past Surgical History: Appendectomy, Hernia Repair, Joint Replacement Additional Past Surgical History / Comment(s): right knee Past Anesthesia/Blood Transfusion Reactions: No Reported Reaction Past Psychological History: Depression Smoking Status: Current every day smoker Past Alcohol Use History: None Reported Past Drug Use History: None Reported - Past Family History Mother Family Medical History: Dementia, Diabetes Mellitus, Hyperlipidemia General Exam - General Exam Comments Initial Comments: This is a pleasant 56-year-old male. Patient does not appear to be in any acute distress. Limitations: no limitations General appearance: alert, in no apparent distress Head exam: Present: atraumatic, normocephalic, normal inspection Eye exam: Present: normal appearance, PERRL, EOMI. Absent: scleral icterus, conjunctival injection, periorbital swelling ENT exam: Present: normal exam, mucous membranes moist Neck exam: Present: normal inspection. Absent: tenderness, meningismus, lymphadenopathy Respiratory exam: Present: normal lung sounds bilaterally. Absent: respiratory distress, wheezes, rales, rhonchi, stridor Cardiovascular Exam: Present: regular rate, normal rhythm, normal heart sounds. Absent: systolic murmur, diastolic murmur, rubs, gallop, clicks GI/Abdominal exam: Present: soft, normal bowel sounds. Absent: distended, tenderness, guarding, rebound, rigid Extremities exam: Present: normal inspection, full ROM, normal capillary refill. Absent: tenderness, pedal edema, joint swelling, calf tenderness Left Knee exam: Present: normal inspection, full ROM Lower Leg exam: Present: normal inspection, full ROM, erythema (Some mild erythema extending up the ankle up to the lower calf.) Ankle exam: Present: full ROM, swelling, erythema (Patient has slight erythema extending over the ankle up to the lower calf.). Absent: normal inspection Foot/Toe exam: Present: tenderness (Patient has tenderness over the entire foot. More significant swelling and tenderness over the first and second toes where the nail bed is.), swelling, erythema. Absent: normal inspection, ecchymosis Gait: observed and limited by pain 1 - erythema and swelling 2 - erythema and swelling Back exam: Present: normal inspection Neurological exam: Present: alert, oriented X3, CN II-XII intact Psychiatric exam: Present: normal affect. Absent: normal mood, suicidal ideation (Patient reports that he had suicidal statements due to the pain of his foot. Patient states that is not 100% how he feels. She reports the pain becomes so severe he becomes depressed. Patient actively denies suicidal thoughts.) Skin exam: Present: warm, dry, intact, normal color. Absent: rash Course Vital Signs 12/11/16 12/11/16 12/11/16 17:35 20:00 21:00 Temperature 99.2 F Pulse Rate 89 94 16 L Respiratory 20 20 70 H Rate Blood Pressure 103/59 119/64 122/67 O2 Sat by Pulse 98 98 95 Oximetry Medical Decision Making - Medical Decision Making Is a 56-year-old male chief complaint of left first and second toe pain after having toenail removal procedure by his strip stamp straightener month ago. Patient reports that the had increased swelling and pain over his entire foot and back of his calf. He also reports that when he was in the triage that he was stating that he wanted to shoot his foot and should his head due to the pain of his foot. He denies any specific suicidal thoughts. will receive Doppler ultrasound , IV fluids and lab work. Patient's ultrasound that showed positive DVT in the left leg extending up to the left femoral vein to the left superior calf veins. Patient will be started on Lovenox. Discussed the case with Dr. Lim. Also treating the patient for a superficial cellulitis of the toes. Patient started on Rocephin. Discussed that we can admit the patient. The For IV fluids, pain management and DVT , cellulitis treatment. - Lab Data Result diagrams: 12/11/16 18:30 12/11/16 18:30 Lab Results 12/11/16 12/11/16 12/11/16 Range/Units 18:30 18:30 19:41 WBC 7.4 (3.8-10.6) k/uL RBC 5.10 (4.30-5.90) m/uL Hgb 14.6 (13.0-17.5) gm/dL Hct 44.6 (39.0-53.0) % MCV 87.4 (80.0-100.0) fL MCH 28.5 (25.0-35.0) pg MCHC 32.7 (31.0-37.0) g/dL RDW 14.5 (11.5-15.5) % Plt Count 233 (150-450) k/uL Neutrophils % 67 % Lymphocytes % 22 % Monocytes % 5 % Eosinophils % 4 % Basophils % 1 % Neutrophils # 4.9 (1.3-7.7) k/uL Lymphocytes # 1.7 (1.0-4.8) k/uL Monocytes # 0.4 (0-1.0) k/uL Eosinophils # 0.3 (0-0.7) k/uL Basophils # 0.1 (0-0.2) k/uL Sodium 140 (137-145) mmol/L Potassium 4.7 (3.5-5.1) mmol/L Chloride 106 (98-107) mmol/L Carbon Dioxide 25 (22-30) mmol/L Anion Gap 9 mmol/L BUN 10 (9-20) mg/dL Creatinine 0.80 (0.66-1.25) mg/dL Est GFR (MDRD) Af Amer >60 (>60 ml/min/1.73 sqM) Est GFR (MDRD) Non-Af >60 (>60 ml/min/1.73 sqM) Glucose 100 H (74-99) mg/dL Uric Acid 5.2 (3.5-8.5) mg/dL Calcium 11.2 H (8.4-10.2) mg/dL Total Bilirubin 0.7 (0.2-1.3) mg/dL AST 20 (17-59) U/L ALT 34 (21-72) U/L Alkaline Phosphatase 105 (38-126) U/L Total Protein 7.1 (6.3-8.2) g/dL Albumin 4.2 (3.5-5.0) g/dL Urine Opiates Screen Not Detected (NotDetected) Ur Oxycodone Screen Not Detected (NotDetected) Urine Methadone Screen Not Detected (NotDetected) Ur Propoxyphene Screen Not Detected (NotDetected) Ur Barbiturates Screen Not Detected (NotDetected) U Tricyclic Antidepress Not Detected (NotDetected) Ur Phencyclidine Scrn Not Detected (NotDetected) Ur Amphetamines Screen Not Detected (NotDetected) U Methamphetamines Scrn Not Detected (NotDetected) U Benzodiazepines Scrn Not Detected (NotDetected) Urine Cocaine Screen Not Detected (NotDetected) U Marijuana (THC) Screen Not Detected (NotDetected) - Radiology Data Radiology results: report reviewed There is a DVT in the left leg involving the femoral vein and popliteal vein extending into the calf veins. This appears new compared to last exam at 2016. Foot x-ray shows calcaneal spurring. No fracture or no change. Disposition Clinical Impression: Cellulitis of left foot, Left leg DVT Disposition: ADMITTED IP TO THIS HOSP Condition: Good Time of Disposition: 20:15
[2016-12-11 18:42] LABS: Basophils # (A) 0.1 k/uL (0-0.2); Basophils % (A) 1 %; CH 28.2; CHCM 32.4; Eosinophils # (A) 0.3 k/uL (0-0.7); Eosinophils % (A) 4 %; HCT 44.6 % (39.0-53.0); HDW 2.74; HGB 14.6 gm/dL (13.0-17.5); Luc # (Auto) 0.13; Luc % (Auto) 2; Lymphocytes # (A) 1.7 k/uL (1.0-4.8); Lymphocytes % (A) 22 %; MCH 28.5 pg (25.0-35.0); MCHC 32.7 g/dL (31.0-37.0); MCV 87.4 fL (80.0-100.0); Mean Platelet Volume 6.5; Monocytes # (A) 0.4 k/uL (0-1.0); Monocytes % (A) 5 %; Neutrophils # (A) 4.9 k/uL (1.3-7.7); Neutrophils % (A) 67 %; RDW 14.5 % (11.5-15.5); WBC 7.4 k/uL (3.8-10.6); WBC (Perox) 7.29
[2016-12-11 18:56] LABS: ALT 34 U/L (21-72); AST 20 U/L (17-59); Alkaline Phosphatase 105 U/L (38-126); Anion Gap 9 mmol/L; Blood Urea Nitrogen 10 mg/dL (9-20); Calcium 11.2 mg/dL (8.4-10.2); Carbon Dioxide 25 mmol/L (22-30); Chloride 106 mmol/L (98-107); Glucose 100 mg/dL (74-99); Non-African American GFR(MDRD) >60 (>60 ml/min/1.73 sqM); Potassium 4.7 mmol/L (3.5-5.1); Sodium 140 mmol/L (137-145); Total Bilirubin 0.7 mg/dL (0.2-1.3); Total Protein 7.1 g/dL (6.3-8.2); Uric Acid 5.2 mg/dL (3.5-8.5)
--- NOTE | 2016-12-11 19:15 | XR ---
EXAMINATION TYPE: XR foot complete LT DATE OF EXAM: 12/11/2016 6:46 PM COMPARISON: 09/24/2016 HISTORY: Swelling TECHNIQUE: 3 views FINDINGS: The metatarsals appear intact. I see no fracture nor dislocation. There are plantar and Ach illes calcaneal spurs. There are no erosions. IMPRESSION: Calcaneal spurring. No fracture. No change.
--- NOTE | 2016-12-11 19:35 | US ---
EXAMINATION TYPE: US venous doppler duplex LE LT DATE OF EXAM: 12/11/2016 7:23 PM COMPARISON: Prior in PACS CLINICAL HISTORY: Pain in left foot. Swelling SIDE PERFORMED: Left TECHNIQUE: The lower extremity deep venous system is examined utilizing real time linear array sonog maco with graded compression, doppler sonography and color-flow sonography. VESSELS IMAGED: External Iliac Vein (EIV) Common Femoral Vein Deep Femoral Vein Greater Saphenous Vein * Femoral Vein Popliteal Vein Small Saphenous Vein * Proximal Calf Veins (* superficial vessels) Left Leg: ++Positive for DVT extending from the left CFV to the left proximal calf veins IMPRESSION: There is deep venous thrombosis in the left leg involving the femoral vein and popliteal vein and extending into the calf veins. This appears new compared to last exam of 10/18/2016.
[2016-12-11] MEDS ORDERED: ENOXAPARIN 120 MG/0.8 ML SYRINGE SQ STA (20:18)
[2016-12-11] MEDS ORDERED: HYDROmorphone 1 MG/ML 1 ML SYRINGE IVP STA (20:19)
[2016-12-11] MEDS ORDERED: ACETAMINOPHEN TAB 325 MG TAB PO PRN (20:40)
[2016-12-11] MEDS ORDERED: NALOXONE 0.4 MG/ML 1 ML VIAL IV PRN (20:40)
[2016-12-11] MEDS ORDERED: KETOROLAC 30 MG/ML 1 ML VIAL IVP PRN (20:40)
[2016-12-11] MEDS ORDERED: ONDANSETRON 4 MG/2 ML VIAL IVP PRN (20:40)
[2016-12-11] MEDS ORDERED: ALPRAZolam 0.25 MG TAB PO PRN (20:40)
[2016-12-11] MEDS ORDERED: CITALOPRAM HYDROBROMIDE 20 MG TAB PO SCH (21:00)
[2016-12-11] MEDS ORDERED: GLIMEPIRIDE 1 MG TAB PO SCH (21:00)
[2016-12-11] MEDS ORDERED: ATORVASTATIN 40 MG TAB PO SCH (21:00)
[2016-12-11] MEDS ORDERED: GABAPENTIN 100 MG CAP PO SCH (21:00)
[2016-12-11] MEDS ORDERED: LISINOPRIL 20 MG TAB PO SCH (21:00)
[2016-12-11] MEDS ORDERED: NON-FORMULARY DRUG (Omeprazole [Omeprazole] 40 MG) PO SCH (21:00)
[2016-12-11] MEDS: metFORMIN 500 MG TAB PO SCH (23:41)
[2016-12-11] MEDS: SODIUM CHLORIDE 0.9% 1,000 ML IV SCH (23:44)
[2016-12-11 23:56] VITALS: BMI 39.8
[2016-12-12] MEDS: HYDROmorphone 1 MG/ML 1 ML SYRINGE IV PRN ×3 (00:18→08:04)
[2016-12-12 00:19] VITALS: RESP 18
[2016-12-12 05:59] LABS: Glucose,Whole Blood 93 mg/dL (75-99)
[2016-12-12] MEDS: SODIUM CHLORIDE 0.9% 1,000 ML IV SCH (07:52)
[2016-12-12] MEDS: metFORMIN 500 MG TAB PO SCH (08:05)
[2016-12-12 08:17] VITALS: BP 132/89; PULSE 71; TEMP 97.7
[2016-12-12] MEDS ORDERED: PANTOPRAZOLE 40 MG/10 ML VIAL IV SCH (09:00)
[2016-12-12 11:36] LABS: Glucose,Whole Blood 109 mg/dL (75-99)
[2016-12-12 12:53] LABS: Anion Gap 8 mmol/L; Blood Urea Nitrogen 13 mg/dL (9-20); Calcium 10.4 mg/dL (8.4-10.2); Carbon Dioxide 24 mmol/L (22-30); Chloride 109 mmol/L (98-107); Glucose 90 mg/dL (74-99); Non-African American GFR(MDRD) >60 (>60 ml/min/1.73 sqM); Potassium 4.3 mmol/L (3.5-5.1); Sodium 141 mmol/L (137-145)
--- NOTE | 2016-12-12 14:22 | HP ---
DATE OF ADMISSION: This dictation is both H&P and Discharge Summary. A 56-year-old came in with complaints of pain in the left calf area which has been going on for about a month he says and patient was found to have DVT in that leg and patient had recent surgery for ingrown nail, although patient is ambulatory after the surgery and I do not believe that contributed to his blood clot. Patient denied any family history of blood clot, but does have family history of gastric cancer and breast cancer history in the family and the patient did lose around 25 pounds of weight in the last 3 to 4 months he says. Patient is a smoker, because of that reason, patient will need to be evaluated for regular cancer screenings including colonoscopy, PSA testing and chest CT as he is a smoker to rule out any pulmonary nodules or any cancerous lesions. Patient will be evaluated for approval for Xarelto and if patient is able to afford the co-pay, patient will be discharged on Xarelto which can be discontinued in 6 months and for about a month to 1-1/2 month and needs to be worked up for procoagulant conditions at that time and if he is found to have procoagulant conditions, patient will need to continue anticoagulation. Although the rest of the work-up needs to be done as an outpatient. Patient will be discharged today and did patient denied any fever, chills. Patient denied any cough, runny nose, abdominal pain, dysuria. REVIEW OF SYSTEMS: CONSTITUTIONAL: No fever, no malaise, no fatigue. HEENT: No recent visual problems or hearing problems. Denied any sore throat. CARDIOVASCULAR: No chest pain, orthopnea, PND, no palpitations, no syncope. PULMONARY: No shortness of breath, no cough, no hemoptysis. GASTROINTESTINAL: No diarrhea, no nausea, no vomiting, no abdominal pain. Normoactive bowel sounds. NEUROLOGICAL: No headaches, no weakness, no numbness. HEMATOLOGICAL: Denies any bleeding or petechiae. GENITOURINARY: Denies any burning micturition, frequency, or urgency. MUSCULOSKELETAL/RHEUMATOLOGICAL: Denies any joint pain, swelling, or any muscle pain. ENDOCRINE: Denies any polyuria or polydipsia. EXTREMITIES: Left extremity as mentioned above. The rest of the 14 point review of systems is negative. Home medications include: 1. Atorvastatin. 2. Benazepril. 3. Citalopram. 4. [place]. 5. Glimepiride. 6. Omeprazole. 7. Metformin. 8. Gabapentin. ALLERGIES: No known drug allergies. PAST MEDICAL HISTORY: Significant for diabetes mellitus, hyperlipidemia, hypertension, appendectomy, hernia repair, joint replacement surgery, depression. SOCIAL HISTORY: Patient does smoke 1 pack per day. Denied any alcohol abuse or any drug abuse. FAMILY HISTORY: As mentioned in the HPI itself. PHYSICAL EXAMINATION: VITAL SIGNS: Temperature 97.7, pulse of 94, respiratory rate of 18, blood pressure is 132/89, saturating at 93% on room air. GENERAL EXAMINATION: Obese gentleman, alert and oriented x3. LEFT LOWER EXTREMITY: Patient has pain and tenderness in the left calf area secondary to DVT. HEENT: Pupils are round and equally reacting to light. EOMI. No scleral icterus. No conjunctival pallor. Normocephalic, atraumatic. No pharyngeal erythema. No thyromegaly. CARDIOVASCULAR: S1 and S2 present. No murmurs, rubs, or gallops. PULMONARY: Chest is clear to auscultation, no wheezing or crackles. ABDOMEN: Soft, nontender, nondistended, normoactive bowel sounds. No palpable organomegaly. MUSCULOSKELETAL: No joint swelling or deformity. NEUROLOGICAL: Gross neurological examination did not reveal any focal deficits. SKIN: No rashes. LABORATORY DATA: CBC, CMP, essentially within normal limits. [place] urine drug screen are negative. Other significant lab data include hypercalcemia of 11.2, which is minimally elevated and will repeat the calcium level. If it continues to be elevated, patient will further needs to be evaluated with an intact PTH and also will benefit from outpatient oncology work-up and referral to Hematology-Oncology. ASSESSMENT AND PLAN: 1. Left lower extremity deep venous thrombosis management as mentioned above. 2. Hypercalcemia. Management as mentioned during the discussion of lab data. 3. Hyperlipidemia. 4. Hypertension. 5. Obesity. Counseling was provided. 6. Unintentional weight loss in 3 months. Management as mentioned above. Outpatient work-up for common cancers and the screening procedures. For above-mentioned chronic medical problems, will continue with home medications. Patient apparently will repeat the calcium level and if it close to normal, patient will be discharged today. Otherwise patient will need an intact PTH along with work-up for any cancers as soon as possible. This dictation is both H&P and discharge summary. If patient is discharged, patient will follow with Dr. Jenna Sandhu in about 3 to 7 days. Activity as tolerated. Cardiac and diabetic, 1800 calorie diet. Nicotine cessation counseling was provided.
[2016-12-12] MEDS ORDERED: RIVAROXABAN 15 MG TAB PO STA (15:32)
[2016-12-13] MEDS ORDERED: PANTOPRAZOLE 40 MG TABLET PO SCH (07:30)
== END 2016-12-12 15:45 | disposition home or self-care (01) | DRG 300 ==
LOC: EC 17:08 → 5MS5E 21:04
PROVIDERS: ADMIT Internal Medicine; ATTEND Internal Medicine
DX: I82.412 Acute embolism and thrombosis of left femoral vein (principal); L03.116 Cellulitis of left lower limb; I82.432 Acute embolism and thrombosis of left popliteal vein; I10 Essential (primary) hypertension; E11.9 Type 2 diabetes mellitus without complications; L03.039 Cellulitis of unspecified toe; E83.52 Hypercalcemia; F17.200 Nicotine dependence, unspecified, uncomplicated; E78.5 Hyperlipidemia, unspecified; E66.9 Obesity, unspecified; F32.9 Major depressive disorder, single episode, unspecified; Z71.3 Dietary counseling and surveillance; Z96.60 Presence of unspecified orthopedic joint implant; Z68.39 Body mass index [BMI] 39.0-39.9, adult; Z79.84 Long term (current) use of oral hypoglycemic drugs; Z79.899 Other long term (current) drug therapy
CPT/HCPCS: 36415; 80048; 80053; 80306; 82075; 84550; 85025; 96365; 96372; 96375; 99285

== ENCOUNTER 2017-02-24 07:53 | Day surgery (SDC) | payer MEDICARE ==
[2017-02-20 14:15] VITALS: BMI 41.1
[~2017-02-24 07:53] MED LIST: ALPRAZolam 0.25 MG TAB PO PRN; ASPIRIN 325 MG TAB PO STA; SODIUM CHLORIDE 0.9% 1,000 ML in EMPTY BAG 1 BAG IV ONE
[2017-02-24 08:33] LABS: Glucose,Whole Blood 123 mg/dL (75-99)
[2017-02-24 08:47] VITALS: PULSE 82; TEMP 98
[2017-02-24 08:52] LABS: Basophils % (A) 0 %; CH 28.3; CHCM 32.7; Eosinophils # (A) 0.3 k/uL (0-0.7); Eosinophils % (A) 4 %; HCT 45.4 % (39.0-53.0); HDW 2.63; HGB 15.1 gm/dL (13.0-17.5); Luc # (Auto) 0.13; Luc % (Auto) 2; Lymphocytes # (A) 1.9 k/uL (1.0-4.8); Lymphocytes % (A) 25 %; MCHC 33.3 g/dL (31.0-37.0); MCV 86.9 fL (80.0-100.0); Mean Platelet Volume 6.5; Monocytes # (A) 0.3 k/uL (0-1.0); Monocytes % (A) 5 %; Neutrophils # (A) 4.7 k/uL (1.3-7.7); Neutrophils % (A) 64 %; RBC 5.23 m/uL (4.30-5.90); RDW 15.2 % (11.5-15.5); WBC 7.3 k/uL (3.8-10.6); WBC (Perox) 7.13
[2017-02-24 08:55] LABS: Anion Gap 9 mmol/L; Blood Urea Nitrogen 13 mg/dL (9-20); Calcium 10.7 mg/dL (8.4-10.2); Carbon Dioxide 25 mmol/L (22-30); Chloride 107 mmol/L (98-107); Glucose 124 mg/dL (74-99); Non-African American GFR(MDRD) >60 (>60 ml/min/1.73 sqM); Potassium 4.3 mmol/L (3.5-5.1); Sodium 141 mmol/L (137-145)
[2017-02-24] MEDS ORDERED: IV FLUID CONTINUATION 1,000 ML IV ONE (09:10)
[2017-02-24] MEDS ORDERED: MIDAZOLAM 2 MG/2 ML VIAL IV ONE (09:27)
[2017-02-24] MEDS ORDERED: LIDOCAINE 2% INJ 20 MG/ML SQ ONE (09:32)
[2017-02-24] MEDS: VERAPAMIL SYRINGE (5 MG/10 ML) INTRAARTER ONE ×2 (09:33→09:52)
[2017-02-24] MEDS ORDERED: HEPARIN SODIUM 1,000 UN/ML (10ML VL) IV ONE (09:36)
[2017-02-24] MEDS ORDERED: IODIXANOL 320 MG/ML 100 ML INTRAARTER ONE (09:52)
[2017-02-24] MEDS ORDERED: SODIUM CHLORIDE 0.9% 1,000 ML IV SCH (10:15)
[2017-02-24 10:17] VITALS: RESP 18
--- NOTE | 2017-02-24 11:24 | IR ---
Fluoroscopy HISTORY: Peripheral vascular occlusive disease 3.2 minutes fluoroscopy time supplied to the referring clinician. 190 intraoperative C-arm images do cument the procedure. See dictated report from cardiology.
[2017-02-24 13:23] LABS: Glucose,Whole Blood 186 mg/dL (75-99)
[2017-02-24 14:47] VITALS: BP 140/77
--- NOTE | 2017-02-25 08:26 | PCN ---
DATE OF PROCEDURE: 02/24/2017 PERFORMING PHYSICIAN: Arias Pandey M.D., digester operator. PROCEDURE PERFORMED: 1. Abdominal aortogram. 2. Bilateral lower extremity runoff. 3. Selective left external iliac artery angiogram. INDICATION : This is a very pleasant 56-year-old gentleman who is diabetic and a smoker who was struggling with a nonhealing ulcer involving the left foot. He underwent an arterial duplex study which showed increased velocity in the left SFA/popliteal so he was brought today to undergo an angiogram. APPROACH: Right radial artery. COMPLICATION: None. LEVEL OF SEDATION: Moderate with a sedation length of 24 minutes. PROCEDURE DESCRIPTION: After obtaining informed consent the patient was brought to the cardiac catheterization lab. The right radial artery was cannulated using micropuncture technique. The micropuncture wire passed easily. Then I placed a 5 Liberian sheath in the right radial artery. After that I did an abdominal aortogram and bilateral lower extremity runoff using 5 Liberian pigtail catheter which was initially placed at the level of the renal arteries and then it was advanced into the above of the bifurcation of the aorta of the right and left common iliac arteries. After that, I did select the left external iliac artery using 5 Liberian multipurpose catheter with two holes and using an 035 Advantage wire. The procedure was completed without any complication. SELECTIVE PERIPHERAL ANGIOGRAM: AORTA: The abdominal aorta appeared to be angiographically normal. COMMON ILIAC ARTERY: The right and left common iliac arteries are angiographically normal. EXTERNAL ILIAC ARTERY: The right and left external iliac arteries are angiographically normal. COMMON FEMORAL ARTERY: The right and left common femoral arteries are angiographically normal. SFA: The right SFA appeared to be angiographically normal and left SFA is occluded in the distal portion and the occlusion is extended to the popliteal. BELOW THE KNEE: On the right side it seems to be there is three vessel runoff below the knee. On the left side, the popliteal is occluded and the occlusion extends all the way to the ( ) trunk. I was able to visualize the posterior tibial artery, goes all the way down to the left foot but is occluded in the proximal portion. CONCLUSION: 1. Normal aortoiliac angiogram. 2. Occluded left SFA. 3. Occluded left popliteal. 4. Occluded left ( ) trunk. 5. One vessel runoff below the knee on the left side with posterior tibia which is also chronically occluded in the proximal portion. [facility]
== END 2017-02-24 14:58 | disposition home or self-care (01) ==
LOC: CATHCVL 07:53
PROVIDERS: ATTEND Internal Medicine Interventional Cardiology
DX: I73.9 Peripheral vascular disease, unspecified (principal); E78.00 Pure hypercholesterolemia, unspecified; I10 Essential (primary) hypertension; I82.532 Chronic embolism and thrombosis of left popliteal vein; F17.210 Nicotine dependence, cigarettes, uncomplicated; E11.9 Type 2 diabetes mellitus without complications; E78.5 Hyperlipidemia, unspecified; Z82.49 Family history of ischemic heart disease and other diseases of the circulatory system; Z79.01 Long term (current) use of anticoagulants; Z79.84 Long term (current) use of oral hypoglycemic drugs; Z79.899 Other long term (current) drug therapy
CPT/HCPCS: 36246; 75625; 75716; 99153; 99152; 80048; 85025; C1769; C1894; J2001; J2250; Q9967; J1644

== ENCOUNTER → 2017-02-27 | Outpatient (CLI) | payer MEDICARE ==
[2017-02-27 19:07] LABS: Blood Urea Nitrogen 11 mg/dL (9-20); Non-African American GFR(MDRD) >60 (>60 ml/min/1.73 sqM)
--- NOTE | 2017-02-27 23:13 | CT ---
EXAMINATION TYPE: CT abdomen w con DATE OF EXAM: 02/27/2017 COMPARISON: 04/13/2013 HISTORY: 56-year-old male Non-healing wound from hernia repair. TECHNIQUE: Contiguous axial scanning of the abdomen following administration of 100 ml Omnipaque 300 IV contrast. Delayed images through the kidneys and coronal/sagittal reconstructions performed. CT DLP: 2516.40 mGycm Automated exposure control for dose reduction was used. FINDINGS: The heart is normal size without pericardial effusion. Lung bases are clear without pleural effusion. No focal liver lesion or biliary ductal dilatation. Portal venous system is patent. Gallbladder, right adrenal gland, right kidney, spleen, and pancreas appear within normal limits. 1.3 cm nodule within the left adrenal gland appears new from the prior CT but statistically represent s a benign adrenal adenoma. In the left kidney, there is moderate to severe hydronephrosis and delayed excretion of contrast. The re are 2 nonobstructive calculi in the lower pole measuring up to 9 mm. In addition, there are [address] calculi in the upper third left ureter measuring up to 9 mm. There is hydroureter proximal and t he ureter beyond is collapsed. Retroaortic left renal vein incidentally noted. There are postsurgical changes along the anterior abdominal wall especially with mesh repair in the e pigastric region. There is soft tissue thickening and some fat stranding overlying the mesh with some residual 6.3 cm wide and 1.2 cm thick herniating fat through a 2.5 cm abdominal wall defect along th e superior margin of the mesh, axial image 26. Along the inferior margin of the mesh, there is 10.8 c m wide rectus diastases with anterior bulging of the intra-abdominal fat. A small associated omental fat-containing hernia is measuring up to 3.2 cm are present in this region, for example, axial image 48. No dilated small bowel, free fluid, or free air. A few borderline to mildly enlarged upper abdominal lymph nodes measure up to 1.3 cm suggested in the portahepatic region, stable to smaller as compared to 2013. Bones: Degenerative changes of the right SI joint and within the mid to lower lumbar spine. No osseou s destructive process. IMPRESSION: 1. LEFT-SIDED NEPHROLITHIASIS MEASURING UP TO 9 MM. IN ADDITION, THERE IS MODERATE TO SEVERE LEFT-PARAS ED HYDRONEPHROSIS WITH 2 ADJACENT PROXIMAL LEFT URETERIC CALCULI MEASURING UP TO 9 MM CAUSING THE OBS TRUCTIVE UROPATHY. 2. VENTRAL ABDOMINAL WALL HERNIA REPAIR WITH MESH. THERE IS SOFT TISSUE THICKENING AND FAT STRANDING OVERLYING AND ALONG THE MESH MATERIAL THAT COULD REPRESENT INFECTION. NO ABSCESS. 3. SMALL RESIDUAL OMENTAL FAT-CONTAINING HERNIA ALONG THE SUPERIOR MARGIN OF THE MESH IN THE EPIGASTR IUM AND RESIDUAL RECTUS DIASTASES ALONG THE INFERIOR ASPECT OF THE MESH WITH ANTERIOR BULGING OF INTR A-ABDOMINAL FAT AND A COUPLE SMALL FATTY HERNIAS HERE WELL.
== END | disposition home or self-care (01) ==
LOC: RADCTMAIN 18:22
PROVIDERS: ATTEND Surgery
DX: N20.0 Calculus of kidney (principal); N13.30 Unspecified hydronephrosis; K46.9 Unspecified abdominal hernia without obstruction or gangrene; M62.08 Separation of muscle (nontraumatic), other site
CPT/HCPCS: 82565; 84520; 74160; 36415; Q9967

== ENCOUNTER → 2017-03-05 | Outpatient (CLI) | payer MEDICARE ==
[2017-03-05 17:48] LABS: Basophils # (A) 0.1 k/uL (0-0.2); Basophils % (A) 1 %; Eosinophils # (A) 0.3 k/uL (0-0.7); Eosinophils % (A) 4 %; HCT 46.8 % (39.0-53.0); HDW 2.61; Luc # (Auto) 0.16; Luc % (Auto) 2; Lymphocytes # (A) 2.4 k/uL (1.0-4.8); Lymphocytes % (A) 34 %; MCH 28.1 pg (25.0-35.0); MCV 87.8 fL (80.0-100.0); Mean Platelet Volume 6.3; Monocytes # (A) 0.3 k/uL (0-1.0); Monocytes % (A) 5 %; Neutrophils # (A) 3.9 k/uL (1.3-7.7); Neutrophils % (A) 55 %; RBC 5.33 m/uL (4.30-5.90); RDW 15.1 % (11.5-15.5); WBC 7.2 k/uL (3.8-10.6); WBC (Perox) 7.01
[2017-03-05 17:54] LABS: Anion Gap 8 mmol/L; Blood Urea Nitrogen 12 mg/dL (9-20); Calcium 10.5 mg/dL (8.4-10.2); Carbon Dioxide 24 mmol/L (22-30); Chloride 108 mmol/L (98-107); Glucose 89 mg/dL (74-99); Non-African American GFR(MDRD) >60 (>60 ml/min/1.73 sqM); Potassium 4.5 mmol/L (3.5-5.1); Sodium 140 mmol/L (137-145)
== END | disposition home or self-care (01) ==
LOC: LABWHC1 17:31
PROVIDERS: ATTEND Urology
DX: N20.1 Calculus of ureter (principal)
CPT/HCPCS: 36415; 80048; 85025

== ENCOUNTER 2017-03-19 09:58 | Day surgery (SDC) | payer MEDICARE ==
[~2017-03-19 09:58] MED LIST changes: +ZOLPIDEM 5 MG TAB PO PRN
[2017-03-19] MEDS ORDERED: SODIUM CHLORIDE 0.9% 500 ML with niCARdipine 6.25 MG, NITROGLYCERIN-D5W PMX 0.05 MG, HE... IV ONE ×4 (11:38)
[2017-03-19] MEDS ORDERED: MIDAZOLAM 2 MG/2 ML VIAL IV ONE (11:52)
[2017-03-19] MEDS ORDERED: LIDOCAINE 2% INJ 20 MG/ML SQ ONE ×3 (12:00→12:02)
[2017-03-19] MEDS ORDERED: HEPARIN SODIUM 1,000 UN/ML (10ML VL) IV ONE (12:05)
[2017-03-19] MEDS: HYDROmorphone 2 MG/ML 1 ML SYRINGE IVP ONE ×2 (12:21→13:31)
[2017-03-19] MEDS: MIDAZOLAM 2 MG/2 ML VIAL IVP ONE ×2 (12:25→13:21)
[2017-03-19] MEDS ORDERED: HYDROmorphone 2 MG/ML 1 ML SYRINGE IV ONE (14:05)
[2017-03-19] MEDS ORDERED: CLOPIDOGREL 75 MG TAB PO ONE (14:05)
[2017-03-19 14:06] LABS: Glucose,Whole Blood 118 mg/dL (75-99)
[2017-03-19] MEDS ORDERED: niCARdipine Syringe (1,000 mcg/10 mL) INTRAARTER ONE (14:17)
[2017-03-19] MEDS ORDERED: PANTOPRAZOLE 40 MG TABLET PO PRN (14:33)
[2017-03-19] MEDS ORDERED: IODIXANOL 320 MG/ML 100 ML INTRAARTER ONE (14:41)
--- NOTE | 2017-03-19 16:22 | IR ---
EXAMINATION TYPE: IR well logging captain femoral popliteal DATE OF EXAM: 03/19/2017 CLINICAL HISTORY: Peripheral vascular disease TECHNIQUE: Fluoroscopy. COMPARISON: None. FINDINGS: Fluoroscopic guidance was provided during lower extremity angiogram procedure performed by Dr. Pandey. A total of 46.7 minutes of fluoroscopic time was utilized during the procedure and 19 ded icated cine runs are acquired. Please refer to procedure note for further details as I was not present nor performed procedure. IMPRESSION: As Above.
[2017-03-19] MEDS: HYDROcodone/APAP 7.5-325MG 1 EACH TAB PO PRN (20:01)
[2017-03-19 20:36] VITALS: BMI 41.0
[2017-03-19 20:37] VITALS: RESP 18
[2017-03-19] MEDS ORDERED: LISINOPRIL 20 MG TAB PO SCH (21:00)
[2017-03-19] MEDS ORDERED: GLIMEPIRIDE 1 MG TAB PO SCH (21:00)
[2017-03-19] MEDS ORDERED: DULoxetine HCL 20 MG CAPSULE.DR PO SCH (21:00)
[2017-03-19] MEDS ORDERED: ATORVASTATIN 40 MG TAB PO SCH (21:00)
[2017-03-19 21:03] LABS: Glucose,Whole Blood 136 mg/dL (75-99)
[2017-03-20] MEDS: HYDROcodone/APAP 7.5-325MG 1 EACH TAB PO PRN (04:11)
[2017-03-20 06:00] LABS: Glucose,Whole Blood 117 mg/dL (75-99)
[2017-03-20 06:08] LABS: Non-African American GFR(MDRD) >60 (>60 ml/min/1.73 sqM)
[2017-03-20 06:51] LABS: Basophils # (A) 0.1 k/uL (0-0.2); Basophils % (A) 1 %; CH 29.6; CHCM 34.1; Eosinophils # (A) 0.3 k/uL (0-0.7); Eosinophils % (A) 4 %; HCT 43.8 % (39.0-53.0); HDW 2.65; HGB 14.6 gm/dL (13.0-17.5); Luc % (Auto) 1; Lymphocytes # (A) 1.4 k/uL (1.0-4.8); Lymphocytes % (A) 19 %; MCH 29.1 pg (25.0-35.0); MCHC 33.3 g/dL (31.0-37.0); MCV 87.4 fL (80.0-100.0); Mean Platelet Volume 6.8; Monocytes # (A) 0.3 k/uL (0-1.0); Monocytes % (A) 4 %; Neutrophils # (A) 5.1 k/uL (1.3-7.7); Neutrophils % (A) 71 %; RBC 5.01 m/uL (4.30-5.90); RDW 15.9 % (11.5-15.5); WBC 7.2 k/uL (3.8-10.6); WBC (Perox) 6.89
[2017-03-20 06:59] LABS: Anion Gap 6 mmol/L; Blood Urea Nitrogen 11 mg/dL (9-20); Calcium 10.4 mg/dL (8.4-10.2); Carbon Dioxide 24 mmol/L (22-30); Chloride 108 mmol/L (98-107); Glucose 107 mg/dL (74-99); Potassium 4.7 mmol/L (3.5-5.1); Sodium 138 mmol/L (137-145)
[2017-03-20 08:45] VITALS: BP 112/58; PULSE 77; TEMP 96.1
[2017-03-20] MEDS ORDERED: CLOPIDOGREL 75 MG TAB PO SCH (09:00)
--- NOTE | 2017-03-21 10:34 | PTCA ---
PERCUTANEOUSTRANS CORORONARY ANGIOGRAPHY Date of Service: PERFORMING PHYSICIAN: Arias Pandey MD, sports medicine physician. PROCEDURE PERFORMED: 1. Selective left [id number]-ixvu angiogram. 2. Selective left tibioperoneal trunk angiogram. 3. Selective left popliteal angiogram. 4. Selective right common femoral artery angiogram. 5. Intravascular ultrasound (IVUS) of the left tibioperoneal trunk and left popliteal. 6. Endarterectomy of the left tibioperoneal trunk and left popliteal as well. 7. Successful balloon angioplasty of the left tibioperoneal trunk and left popliteal. INDICATION: This is a pleasant 56-year-old gentleman who was experiencing left leg numbness as well as left leg claudication. He underwent an arterial duplex study which came in to be abnormal and subsequently he underwent a peripheral angiogram which showed occluded left popliteal and occluded left tibioperoneal trunk. He was brought today to undergo a SPECIALTY PLANT SUPERVISOR. APPROACH: Right common femoral artery. COMPLICATION: None. LEVEL OF SEDATION: Moderate with a sedation length of 2 hours 20 minutes. PROCEDURE DESCRIPTION: After obtaining an informed consent, the patient was brought to the cardiac catholic priest. The right common femoral artery was cannulated using micropuncture technique. The micropuncture wire passed easily. Then I placed a 6-Uruguayan sheath in the right common femoral artery. Subsequently I did start anticoagulation using heparin and the patient was given a weight-based heparin with continuous monitoring ACT during the procedure. After that, I did select the left SFA using an 0.035 Advantage wire with a 5-Uruguayan RIM catheter. After that, I did exchange my 11 cm 6-Uruguayan sheath into 70 cm 6-Uruguayan sheath using the 0.035 advantage wire. The tip of the long sheath was positioned in the mid left SFA. I was able to cross the chronic total occlusion of the left popliteal and left tibioperoneal trunk using an 0.018 gold tip Glidewire with the backup support of 0.018 CXI catheter. Initially I thought that I was in the collateral, but I did prove that I was in the true lumen using intravascular ultrasound (IVUS). After that, I did balloon angioplasty using initially 3.0-mm balloon. Subsequently, I did use a cutting balloon which was an AngioSculpt balloon and that was a 4.0 balloon. Subsequently, I did balloon angioplasty of the left tibioperoneal trunk and left popliteal using 4.0 x 150-mm drug-coated balloon. For the very proximal left popliteal and distal left SFA, I used 6.0-mm DCP. The following angiogram showed good angiographic results. Without perforation and without dissection with good flow. The procedure was completed without any complication. At that point, I did exchange my long sheath into short sheath using the Advantage wire. Then I did a selective right common femoral artery angiogram. The procedure was completed without any complication. POSTPROCEDURE MANAGEMENT: 1. Dual anti-platelet therapy. 2. Practice lifestyle modifications. 3. Follow up with the patient. MMODL / IJN: [id number] /
--- NOTE | 2017-03-21 18:55 | DS ---
DISCHARGE SUMMARY ADMISSION DATE: March 19, 2017. DISCHARGE DATE: March 20, 2017. BRIEF HISTORY: This is a pleasant 56-year-old gentleman who was admitted to the hospital yesterday and underwent successful crossing of chronic total occlusion of the left popliteal as well as left tibioperoneal trunk with a good angiographic result without any complication. The procedure was performed from the right groin which is soft and nontender and without any bruises. The patient is going to be discharged home on dual anti-platelet therapy and statin and I will follow up with the patient next week in the office. MMRONNIE / MELONIE: [id number] /
== END 2017-03-20 11:46 | disposition home or self-care (01) ==
LOC: CATHCVL 09:58 → 6SEL 14:26 → CATHCVL 03-20 11:46
PROVIDERS: ATTEND Internal Medicine Interventional Cardiology
DX: I70.212 Atherosclerosis of native arteries of extremities with intermittent claudication, left leg (principal); I10 Essential (primary) hypertension; E78.5 Hyperlipidemia, unspecified; F17.210 Nicotine dependence, cigarettes, uncomplicated; E11.9 Type 2 diabetes mellitus without complications; Z79.84 Long term (current) use of oral hypoglycemic drugs; Z79.01 Long term (current) use of anticoagulants; Z79.899 Other long term (current) drug therapy
CPT/HCPCS: 99152; 99153 ×5; 37225; 37229; 85347; 37252; 37253; 80048; 85025; C1894 ×2; C1769 ×8; C1725 ×2; C1753; C1714; C2623 ×2; J2001; J2250; J1170; Q9967; J1644 ×2

== ENCOUNTER 2017-10-08 17:44 | Inpatient (IN) | payer MEDICARE ==
[2017-10-08] MEDS ORDERED: SODIUM CHLORIDE 0.9% 1,000 ML IV STA (18:30)
--- NOTE | 2017-10-08 18:30 | ED ---
GI Bleed HPI <Daniel Lopez - Last Filed: 10/08/17 19:51> - General Source: patient Mode of arrival: ambulatory Limitations: no limitations <Elma Hanson - Last Filed: 10/08/17 22:14> - General Chief complaint: GI Bleed Stated complaint: BLACK STOOL LOW HEMOGLOBIN Time Seen by Provider: 10/08/17 17:59 - History of Present Illness Initial comments: 57-year-old male patient presents to the emergency department today for evaluation of black stools. Patient states he has been having black stools for the last 3-4 days. Patient states he is also been having some right-sided abdominal pain however this has been going on for the last 3 months. Patient states he does have issues with chronic constipation. Patient does take Coumadin for history of DVT. He states he has also been having some issues with urination, states at times he seems like he goes to much, and other times seems like he goes to little. Patient denies any diarrhea or passage of bright red blood. He states he has been feeling fatigued, dizzy, and weak. Patient states that he recently had blood work done and his physician informed her that his hemoglobin went from 14 down to 10. He denies any fevers or chills. Denies any chest pain or shortness of breath. Patient denies any recent rash, abdominal pain, nausea, vomiting, diarrhea, constipation, back pain, numbness, tingling, hematuria, dysuria, urinary urgency, urinary frequency, headache, visual changes, or any other complaints. Patient states his last colonoscopy was over 10 years ago. Denies history of GI bleed. (Elma Hanson) - Related Data Home Medications Medication Instructions Recorded Confirmed Atorvastatin [Lipitor] 40 mg PO HS 09/23/16 10/08/17 Benazepril HCl 20 mg PO HS 09/23/16 10/08/17 Glimepiride [Amaryl] 1 mg PO HS 09/23/16 10/08/17 Aspirin 81 mg PO HS 10/08/17 10/08/17 DULoxetine HCL [Cymbalta] 60 mg PO HS 10/08/17 10/08/17 Docusate Sodium [Dok] 200 mg PO HS 10/08/17 10/08/17 Ergocalciferol [Vitamin D2] 50,000 unit PO ESQUIVEL 10/08/17 10/08/17 Warfarin [Coumadin] 7.5 mg PO HS 10/08/17 10/08/17 metFORMIN HCL 2,000 mg PO HS 10/08/17 10/08/17 Allergies Allergy/AdvReac Type Severity Reaction Status Date / Time No Known Allergies Allergy Verified 10/08/17 18:38 Review of Systems ROS Other: All systems not noted in ROS Statement are negative. <Daniel Lopez - Last Filed: 10/08/17 19:51> ROS Other: All systems not noted in ROS Statement are negative. <Elma Hansno - Last Filed: 10/08/17 22:14> ROS Statement: Those systems with pertinent positive or pertinent negative responses have been documented in the HPI. Past Medical History Past Medical History: Diabetes Mellitus, Deep Vein Thrombosis (DVT), Hyperlipidemia, Hypertension, Sleep Apnea/CPAP/BIPAP Additional Past Medical History / Comment(s): open incisional area from umbilical hernia sx, STATES AWAITING TWYLA HIP REPLACEMENT. STATES CURRENT DVT LEFT LEG, HX OF KIDNEY STONES History of Any Multi-Drug Resistant Organisms: None Reported Past Surgical History: Appendectomy, Hernia Repair, Joint Replacement Additional Past Surgical History / Comment(s): right knee REPLACED, hernia x2, ABD AORTOGRAM 02/24/17 Past Anesthesia/Blood Transfusion Reactions: No Reported Reaction Past Psychological History: Depression Smoking Status: Current every day smoker Past Alcohol Use History: Rare Past Drug Use History: None Reported - Past Family History Mother History Unknown: Yes Family Medical History: Dementia, Diabetes Mellitus, Hyperlipidemia, Renal Disease Additional Family Medical History / Comment(s): dialysis <Elma Hanson - Last Filed: 10/08/17 22:14> General Exam Limitations: no limitations General appearance: alert, in no apparent distress, other (This is a well- developed, well-nourished adult male patient in no acute distress. Vital signs upon presentation are temperature 97.0F, pulse 94, respirations 18, blood pressure 133/69, pulse ox 99% on room air.) Eye exam: Present: normal appearance, PERRL, EOMI. Absent: scleral icterus, conjunctival injection, periorbital swelling Neck exam: Present: normal inspection. Absent: tenderness, meningismus, lymphadenopathy Respiratory exam: Present: normal lung sounds bilaterally. Absent: respiratory distress, wheezes, rales, rhonchi, stridor Cardiovascular Exam: Present: regular rate, normal rhythm, normal heart sounds. Absent: systolic murmur, diastolic murmur, rubs, gallop, clicks GI/Abdominal exam: Present: soft, tenderness (Mild left lower quadrant tenderness.), normal bowel sounds. Absent: distended, guarding, rebound, rigid Rectal exam: Present: normal inspection, heme (+) stool, black stool. Absent: hemorrhoids, mass, tenderness Neurological exam: Present: alert, oriented X3, CN II-XII intact Psychiatric exam: Present: normal affect, normal mood Skin exam: Present: warm, dry, intact, normal color. Absent: rash <Elma Hanson - Last Filed: 10/08/17 22:14> Course <Daniel Lopez - Last Filed: 10/08/17 19:51> <Elma Hanson - Last Filed: 10/08/17 22:14> Vital Signs 10/08/17 10/08/17 10/08/17 17:45 20:26 21:43 Temperature 97 F L 98.3 F Pulse Rate 94 71 69 Respiratory 18 18 18 Rate Blood Pressure 133/69 114/62 124/64 O2 Sat by Pulse 99 97 97 Oximetry - Reevaluation(s) Reevaluation #1: 10/08/17 19:51 Patient reevaluated by myself, Dr. Lopez. Patient resting comfortably in bed. Patient does have some mild to moderate tenderness left lower quadrant. Computed tomography scan will be ordered. Patient does have decrease in hemoglobin from February. Patient is Hemoccult-positive. Case was discussed in detail with Dr. Clark, who will admit for Dr. Ramírez. Consult with gastroenterology. (Daniel Lopez) Medical Decision Making - Lab Data Result diagrams: 10/08/17 18:13 10/08/17 18:13 <Daniel Lopez - Last Filed: 10/08/17 19:51> - Lab Data Result diagrams: 10/08/17 18:13 10/08/17 18:13 - EKG Data -: EKG Interpreted by Ks - Radiology Data Radiology results: report reviewed, image reviewed <Elma Hanson - Last Filed: 10/08/17 22:14> - Medical Decision Making 57-year-old male patient presented to the emergency department today for evaluation of black stools. Physical examination did reveal some mild left- sided abdominal tenderness. Labs reviewed and did reveal a hemoglobin of 10.9, down from 14 from recent lab work done at his physician's office. INR is 3.4, glucose 149, calcium 11.1. Urinalysis did show moderate blood, 59 red blood cells, 6 white blood cells, occasional amorphous sediment, occasional urine bacteria, rare urine mucus. We did send this for culture. I did discuss the case with my attending Dr. Lopez. He spoke to Dr. Clark who accepts admission. We will obtain CT scan for further eval of his abdominal pain. We will provide IV fluids, protonix, and consult GI. 2211: CT of the abdomen and pelvis is normal. (Elma Hanson) - Lab Data Lab Results 10/08/17 10/08/17 10/08/17 Range/Units 18:13 18:13 18:13 WBC 6.4 (3.8-10.6) k/uL RBC 3.99 L (4.30-5.90) m/uL Hgb 10.9 L (13.0-17.5) gm/dL Hct 33.7 L (39.0-53.0) % MCV 84.5 (80.0-100.0) fL MCH 27.3 (25.0-35.0) pg MCHC 32.3 (31.0-37.0) g/dL RDW 15.6 H (11.5-15.5) % Plt Count 400 (150-450) k/uL Neutrophils % 64 % Lymphocytes % 24 % Monocytes % 5 % Eosinophils % 5 % Basophils % 1 % Neutrophils # 4.1 (1.3-7.7) k/uL Lymphocytes # 1.5 (1.0-4.8) k/uL Monocytes # 0.3 (0-1.0) k/uL Eosinophils # 0.3 (0-0.7) k/uL Basophils # 0.1 (0-0.2) k/uL Hypochromasia Slight Poikilocytosis Slight PT (9.0-12.0) sec INR (<1.2) APTT (22.0-30.0) sec Sodium 141 (137-145) mmol/L Potassium 4.3 (3.5-5.1) mmol/L Chloride 108 H (98-107) mmol/L Carbon Dioxide 23 (22-30) mmol/L Anion Gap 10 mmol/L BUN 12 (9-20) mg/dL Creatinine 0.73 (0.66-1.25) mg/dL Est GFR (CKD-EPI)AfAm >90 (>60 ml/min/1.73 sqM) Est GFR (CKD-EPI)NonAf >90 (>60 ml/min/1.73 sqM) Glucose 149 H (74-99) mg/dL Calcium 11.1 H (8.4-10.2) mg/dL Total Bilirubin 0.3 (0.2-1.3) mg/dL AST 18 (17-59) U/L ALT 25 (21-72) U/L Alkaline Phosphatase 97 (38-126) U/L Total Creatine Kinase 51 L (55-170) U/L CK-MB (CK-2) 0.6 (0.0-2.4) ng/mL CK-MB (CK-2) Rel Index 1.2 Troponin I <0.012 (0.000-0.034) ng/mL Total Protein 6.5 (6.3-8.2) g/dL Albumin 3.8 (3.5-5.0) g/dL Urine Color Urine Appearance (Clear) Urine pH (5.0-8.0) Ur Specific Ceres (1.001-1.035) Urine Protein (Negative) Urine Glucose (UA) (Negative) Urine Ketones (Negative) Urine Blood (Negative) Urine Nitrite (Negative) Urine Bilirubin (Negative) Urine Urobilinogen (<2.0) mg/dL Ur Leukocyte Esterase (Negative) Urine RBC (0-5) /hpf Urine WBC (0-5) /hpf Ur Squamous Epith Cells (0-4) /hpf Amorphous Sediment (None) /hpf Urine Bacteria (None) /hpf Urine Mucus (None) /hpf Stool Occult Blood (Negative) 10/08/17 10/08/17 10/08/17 Range/Units 18:13 18:20 19:16 WBC (3.8-10.6) k/uL RBC (4.30-5.90) m/uL Hgb (13.0-17.5) gm/dL Hct (39.0-53.0) % MCV (80.0-100.0) fL MCH (25.0-35.0) pg MCHC (31.0-37.0) g/dL RDW (11.5-15.5) % Plt Count (150-450) k/uL Neutrophils % % Lymphocytes % % Monocytes % % Eosinophils % % Basophils % % Neutrophils # (1.3-7.7) k/uL Lymphocytes # (1.0-4.8) k/uL Monocytes # (0-1.0) k/uL Eosinophils # (0-0.7) k/uL Basophils # (0-0.2) k/uL Hypochromasia Poikilocytosis PT 30.5 H (9.0-12.0) sec INR 3.4 H (<1.2) APTT 27.5 (22.0-30.0) sec Sodium (137-145) mmol/L Potassium (3.5-5.1) mmol/L Chloride (98-107) mmol/L Carbon Dioxide (22-30) mmol/L Anion Gap mmol/L BUN (9-20) mg/dL Creatinine (0.66-1.25) mg/dL Est GFR (CKD-EPI)AfAm (>60 ml/min/1.73 sqM) Est GFR (CKD-EPI)NonAf (>60 ml/min/1.73 sqM) Glucose (74-99) mg/dL Calcium (8.4-10.2) mg/dL Total Bilirubin (0.2-1.3) mg/dL AST (17-59) U/L ALT (21-72) U/L Alkaline Phosphatase (38-126) U/L Total Creatine Kinase (55-170) U/L CK-MB (CK-2) (0.0-2.4) ng/mL CK-MB (CK-2) Rel Index Troponin I (0.000-0.034) ng/mL Total Protein (6.3-8.2) g/dL Albumin (3.5-5.0) g/dL Urine Color Yellow Urine Appearance Cloudy (Clear) Urine pH 6.5 (5.0-8.0) Ur Specific Ceres 1.014 (1.001-1.035) Urine Protein Negative (Negative) Urine Glucose (UA) Negative (Negative) Urine Ketones Negative (Negative) Urine Blood Moderate H (Negative) Urine Nitrite Negative (Negative) Urine Bilirubin Negative (Negative) Urine Urobilinogen 2.0 (<2.0) mg/dL Ur Leukocyte Esterase Negative (Negative) Urine RBC 59 H (0-5) /hpf Urine WBC 6 H (0-5) /hpf Ur Squamous Epith Cells <1 (0-4) /hpf Amorphous Sediment Occasional H (None) /hpf Urine Bacteria Occasional H (None) /hpf Urine Mucus Rare H (None) /hpf Stool Occult Blood Positive (Negative) - EKG Data EKG Comments: EKG obtained at 1838 shows normal sinus rhythm with an incomplete right bundle branch block. Ventricular rate is 87, PA interval 180, QRS duration 102, QT 342 , QTc 411. (Elma Hanson) - Radiology Data CT of the abdomen and pelvis with contrast was obtained. Report was reviewed in its entirety. Impression by Dr. Barbie Wilkes shows no acute process; no CT correlation for black stools. (Elma Hanson) Disposition <Daniel Lopez - Last Filed: 10/08/17 19:51> Decision to Admit Reason: Admit from EC Decision Date: 10/08/17 Decision Time: 20:02 <Elma Hanson - Last Filed: 10/08/17 22:14> Clinical Impression: GI bleed, Abdominal pain Disposition: ADMITTED IP TO THIS [facility] Condition: Fair
[2017-10-08 18:48] LABS: Basophils # (A) 0.1 k/uL (0-0.2); Basophils % (A) 1 %; Eosinophils # (A) 0.3 k/uL (0-0.7); Eosinophils % (A) 5 %; HCT 33.7 % (39.0-53.0); HGB 10.9 gm/dL (13.0-17.5); Hypochromasia Slight; Lymphocytes # (A) 1.5 k/uL (1.0-4.8); Lymphocytes % (A) 24 %; MCH 27.3 pg (25.0-35.0); MCHC 32.3 g/dL (31.0-37.0); MCV 84.5 fL (80.0-100.0); Mean Platelet Volume 6.6; Monocytes # (A) 0.3 k/uL (0-1.0); Monocytes % (A) 5 %; Neutrophils # (A) 4.1 k/uL (1.3-7.7); Neutrophils % (A) 64 %; Platelet Count 400 k/uL (150-450); Poikilocytosis Slight; RBC 3.99 m/uL (4.30-5.90); RDW 15.6 % (11.5-15.5); WBC 6.4 k/uL (3.8-10.6)
[2017-10-08 18:54] LABS: INR 3.4 (<1.2); Partial Thromboplastin Time 27.5 sec (22.0-30.0); Prothrombin Time 30.5 sec (9.0-12.0)
[2017-10-08 18:57] LABS: ALT 25 U/L (21-72); AST 18 U/L (17-59); Albumin 3.8 g/dL (3.5-5.0); Alkaline Phosphatase 97 U/L (38-126); Anion Gap 10 mmol/L; Blood Urea Nitrogen 12 mg/dL (9-20); Calcium 11.1 mg/dL (8.4-10.2); Carbon Dioxide 23 mmol/L (22-30); Chloride 108 mmol/L (98-107); Glucose 149 mg/dL (74-99); Potassium 4.3 mmol/L (3.5-5.1); Sodium 141 mmol/L (137-145); Total Bilirubin 0.3 mg/dL (0.2-1.3); Total Protein 6.5 g/dL (6.3-8.2)
[2017-10-08 19:12] LABS: Creatine Kinase 51 U/L (55-170)
[2017-10-08 19:25] LABS: Creatine Kinase MB 0.6 ng/mL (0.0-2.4); Troponin I <0.012 ng/mL (0.000-0.034)
[2017-10-08 19:33] LABS: Amorphous Sediment,Urine Occasional /hpf; Appearance,Urine Cloudy (Clear); Bacteria,Urine Occasional /hpf; Bilirubin,Urine Negative (Negative); Blood,Urine Moderate (Negative); Color,Urine Yellow; Glucose,Urine (UA) Negative (Negative); Ketones,Urine Negative (Negative); Leukocyte Esterase,Urine Negative (Negative); Mucus,Urine Rare /hpf; Nitrite,Urine Negative (Negative); PH, Urine 6.5 (5.0-8.0); Protein,Urine Negative (Negative); RBC,Urine 59 /hpf (0-5); Specific Gravity,Urine 1.014 (1.001-1.035); Squamous Epithelial Cell,Urine <1 /hpf (0-4); WBC,Urine 6 /hpf (0-5)
[2017-10-08] MEDS ORDERED: RX INFO: IV CONTRAST WAS GIVEN 1 EACH MISC MISCELLANE PRN (19:40)
[2017-10-08] MEDS ORDERED: NALOXONE 0.4 MG/ML 1 ML VIAL IV PRN (19:57)
[2017-10-08] MEDS ORDERED: PANTOPRAZOLE 40 MG/10 ML VIAL IVP STA (20:00)
[2017-10-08] MEDS: SODIUM CHLORIDE 0.9% 1,000 ML IV SCH (20:21)
--- NOTE | 2017-10-08 21:36 | CT ---
EXAMINATION TYPE: CT abdomen pelvis w con DATE OF EXAM: 10/08/2017 COMPARISON: 02/27/2017 HISTORY: Black stools x [address] DLP: 2228.8 mGycm Automated exposure control for dose reduction was used. TECHNIQUE: Helical acquisition of images was performed from the lung bases through the pelvis. CONTRAST: Performed without Oral Contrast and with IV Contrast, patient injected with 100 mL of Isovue 300. FINDINGS: LUNG BASES: No significant abnormality is appreciated. LIVER/GB: No significant abnormality is appreciated. PANCREAS: No significant abnormality is seen. SPLEEN: No significant abnormality is seen. ADRENALS: No significant abnormality is seen. Stable subcentimeter left adrenal nodule. KIDNEYS: No significant abnormality is seen. 2 nonobstructing 5 mm calcifications are noted. FREE AIR: No free air is visualized. RETROPERITONEAL ADENOPATHY: None visualized REPRODUCTIVE ORGANS: No significant abnormality is seen URINARY BLADDER: No significant abnormality is seen. PELVIC ADENOPATHY: None visualized. OSSEOUS STRUCTURES: No significant abnormality is seen. BOWEL: No significant abnormality is seen. IMPRESSION: NO ACUTE PROCESS; NO CT CORRELATE FOR BLACK STOOLS.
[2017-10-08 21:49] LABS: Glucose,Whole Blood 106 mg/dL (75-99)
[2017-10-08] MEDS ORDERED: GLIMEPIRIDE 1 MG TAB PO SCH (22:15)
[2017-10-08 22:30] VITALS: BMI 42.3
[2017-10-08] MEDS: metFORMIN 500 MG TAB PO SCH (22:55)
[2017-10-08] MEDS: ATORVASTATIN 40 MG TAB PO SCH (22:55)
[2017-10-08] MEDS: LISINOPRIL 20 MG TAB PO SCH (22:55)
[2017-10-08] MEDS: DULoxetine HCL 60 MG CAPSULE.DR PO SCH (22:55)
[2017-10-09 07:07] LABS: Basophils % (A) 1 %; Eosinophils # (A) 0.3 k/uL (0-0.7); Eosinophils % (A) 5 %; HCT 31.5 % (39.0-53.0); HGB 10.2 gm/dL (13.0-17.5); Hypochromasia Slight; Lymphocytes # (A) 1.9 k/uL (1.0-4.8); Lymphocytes % (A) 29 %; MCH 27.4 pg (25.0-35.0); MCHC 32.3 g/dL (31.0-37.0); MCV 84.9 fL (80.0-100.0); Mean Platelet Volume 6.6; Monocytes # (A) 0.3 k/uL (0-1.0); Monocytes % (A) 4 %; Neutrophils # (A) 3.9 k/uL (1.3-7.7); Neutrophils % (A) 59 %; Platelet Count 357 k/uL (150-450); Poikilocytosis Slight; RBC 3.71 m/uL (4.30-5.90); RDW 15.2 % (11.5-15.5); WBC 6.7 k/uL (3.8-10.6)
[2017-10-09 07:13] LABS: Glucose,Whole Blood 110 mg/dL (75-99)
[2017-10-09 07:19] LABS: Anion Gap 6 mmol/L; Blood Urea Nitrogen 10 mg/dL (9-20); Calcium 10.1 mg/dL (8.4-10.2); Carbon Dioxide 23 mmol/L (22-30); Chloride 110 mmol/L (98-107); Glucose 102 mg/dL (74-99); Potassium 4.4 mmol/L (3.5-5.1); Sodium 139 mmol/L (137-145)
[2017-10-09] MEDS ORDERED: PANTOPRAZOLE 40 MG/10 ML VIAL IVP SCH (09:00)
[2017-10-09] MEDS: SODIUM CHLORIDE 0.9% 1,000 ML IV SCH ×2 (09:15→23:47)
--- NOTE | 2017-10-09 10:05 | P.CONS ---
History of Present Illness - Reason for Consult Consult date: 10/09/17 GI bleed Requesting physician: Jorge Maravilla - History of Present Illness 57-year-old man with a history of diabetes mellitus, DVT with warfarin maintenance, hyperlipidemia, hypertension, obesity, depression, and nicotine cigarette dependency. Patient presented with 2 day history of painless black colored bowel movements 1-2 times daily. Denies coffee-ground or hematemesis. No history GI bleed or peptic ulcer disease. No history of gastric surgeries. Admission hemoglobin 10.9 presently 10.2. MCV 84. Platelet 357. Colonoscopy several years ago to his memory unremarkable. INR 3.4. BUN 12. Creatinine 0.7. Hemoccult stool positive. CT abdomen and pelvis no acute process. Review of Systems Constitutional: Denies fever, chills, sweats, weight gain, or loss. HEENT: Negative for migraines, blurred vision or loss, earaches, drainage, tinnitus, oral mucosal lesions, dysphagia, or odynophagia. Cardiac: Hyperlipidemia. Hypertension. Negative for chest pain, arrhythmias, or palpitation. Respiratory: Sleep apnea. DVT. Nicotine cigarette dependency. Negative for shortness of breath, hemoptysis, cough, or sputum production. Gastrointestinal: See HPI for pertinent findings. Genitourinary: Negative for hematuria, urgency, frequency, polyuria, dysuria, or penile discharge. Musculoskeletal: Negative for muscle aches, swelling, arthritis, and arthralgias. Neurologic: Negative for stroke or TIA. Endocrine: Negative for thyroid problems. Skin: Negative for rash or itching. Psychiatric: History of depression. Past Medical History Past Medical History: Diabetes Mellitus, Deep Vein Thrombosis (DVT), Hyperlipidemia, Hypertension, Sleep Apnea/CPAP/BIPAP Additional Past Medical History / Comment(s): open incisional area from umbilical hernia sx, STATES AWAITING TWYLA HIP REPLACEMENT. STATES CURRENT DVT LEFT LEG, HX OF KIDNEY STONES History of Any Multi-Drug Resistant Organisms: None Reported Past Surgical History: Appendectomy, Hernia Repair, Joint Replacement Additional Past Surgical History / Comment(s): right knee REPLACED, hernia x2, ABD AORTOGRAM 02/24/17 Past Anesthesia/Blood Transfusion Reactions: No Reported Reaction Past Psychological History: Depression Smoking Status: Current every day smoker Past Alcohol Use History: Rare Past Drug Use History: None Reported - Past Family History Mother History Unknown: Yes Family Medical History: Dementia, Diabetes Mellitus, Hyperlipidemia, Renal Disease Additional Family Medical History / Comment(s): dialysis Medications and Allergies Home Medications Medication Instructions Recorded Confirmed Type Atorvastatin [Lipitor] 40 mg PO HS 09/23/16 10/08/17 History Benazepril HCl 20 mg PO HS 09/23/16 10/08/17 History Glimepiride [Amaryl] 1 mg PO HS 09/23/16 10/08/17 History Aspirin 81 mg PO HS 10/08/17 10/08/17 History DULoxetine HCL [Cymbalta] 60 mg PO HS 10/08/17 10/08/17 History Docusate Sodium [Dok] 200 mg PO HS 10/08/17 10/08/17 History Ergocalciferol [Vitamin D2] 50,000 unit PO ESQUIVEL 10/08/17 10/08/17 History Warfarin [Coumadin] 7.5 mg PO HS 10/08/17 10/08/17 History metFORMIN HCL 2,000 mg PO HS 10/08/17 10/08/17 History Allergies Allergy/AdvReac Type Severity Reaction Status Date / Time No Known Allergies Allergy Verified 10/08/17 18:38 Physical Exam Vitals: Vital Signs Temp Pulse Pulse Resp BP BP Pulse Ox 10/09/17 08:00 72 20 10/09/17 07:00 98.4 F 72 20 144/75 98 10/08/17 23:09 97.8 F 80 16 113/57 99 10/08/17 21:43 98.3 F 69 18 124/64 97 10/08/17 20:26 71 18 114/62 97 10/08/17 17:45 97 F L 94 18 133/69 99 Intake and Output 10/08/17 10/09/17 10/09/17 22:59 06:59 14:59 Intake Total 480 Balance 480 Intake: Oral 480 Other: # Voids 2 Weight 133.81 kg General appearance: The patient is alert, oriented, in no acute distress. HET: Head is normocephalic and atraumatic. Pupils are equal and reactive. Oropharynx is clear without lesions. Neck: Supple without lymphadenopathy. Trachea midline. Heart: S1 S2. Regular rate and rhythm. Lungs: No crackles or wheezes are heard. Abdomen: Soft, nontender, nondistended with bowel sounds. No peritoneal signs. No palpable organomegaly or masses. Extremities: Normal skin color and turgor. No cyanosis, rash, ulceration, clubbing, or edema. Radial and pedal pulses are 2/4 bilaterally. Neurological: No focal deficits. Strength and sensation are grossly intact. Results CBC & Chem 7: 10/09/17 06:41 10/09/17 06:41 Labs: Abnormal Lab Results - Last 24 Hours (Table) 10/08/17 10/08/17 10/08/17 Range/Units 18:13 18:13 18:13 RBC 3.99 L (4.30-5.90) m/uL Hgb 10.9 L (13.0-17.5) gm/dL Hct 33.7 L (39.0-53.0) % RDW 15.6 H (11.5-15.5) % PT (9.0-12.0) sec INR (<1.2) Chloride 108 H (98-107) mmol/L Glucose 149 H (74-99) mg/dL POC Glucose (mg/dL) (75-99) mg/dL Calcium 11.1 H (8.4-10.2) mg/dL Total Creatine Kinase 51 L (55-170) U/L Urine Blood (Negative) Urine RBC (0-5) /hpf Urine WBC (0-5) /hpf Amorphous Sediment (None) /hpf Urine Bacteria (None) /hpf Urine Mucus (None) /hpf 10/08/17 10/08/17 10/08/17 Range/Units 18:13 19:16 21:47 RBC (4.30-5.90) m/uL Hgb (13.0-17.5) gm/dL Hct (39.0-53.0) % RDW (11.5-15.5) % PT 30.5 H (9.0-12.0) sec INR 3.4 H (<1.2) Chloride (98-107) mmol/L Glucose (74-99) mg/dL POC Glucose (mg/dL) 106 H (75-99) mg/dL Calcium (8.4-10.2) mg/dL Total Creatine Kinase (55-170) U/L Urine Blood Moderate H (Negative) Urine RBC 59 H (0-5) /hpf Urine WBC 6 H (0-5) /hpf Amorphous Sediment Occasional H (None) /hpf Urine Bacteria Occasional H (None) /hpf Urine Mucus Rare H (None) /hpf 10/09/17 10/09/17 10/09/17 Range/Units 06:41 06:41 07:11 RBC 3.71 L (4.30-5.90) m/uL Hgb 10.2 L (13.0-17.5) gm/dL Hct 31.5 L (39.0-53.0) % RDW (11.5-15.5) % PT (9.0-12.0) sec INR (<1.2) Chloride 110 H (98-107) mmol/L Glucose 102 H (74-99) mg/dL POC Glucose (mg/dL) 110 H (75-99) mg/dL Calcium (8.4-10.2) mg/dL Total Creatine Kinase (55-170) U/L Urine Blood (Negative) Urine RBC (0-5) /hpf Urine WBC (0-5) /hpf Amorphous Sediment (None) /hpf Urine Bacteria (None) /hpf Urine Mucus (None) /hpf Microbiology - Last 24 Hours (Table) 10/08/17 19:16 Urine Culture - Preliminary Urine,Voided CT scan - abdomen: report reviewed (Dr. Soliman) Assessment and Plan (1) Acute GI bleeding Narrative/Plan: 57-year-old male admitted with 2 day history of painless black colored bowel movements with warfarin-induced coagulopathy possible peptic ulcer disease. Current Visit: Yes Status: Acute Code(s): K92.2 - GASTROINTESTINAL HEMORRHAGE, UNSPECIFIED SNOMED Code(s): 46261398 (2) Acute blood loss anemia Current Visit: Yes Status: Acute Code(s): D62 - ACUTE POSTHEMORRHAGIC ANEMIA SNOMED Code(s): 033136372 (3) Melena Current Visit: Yes Status: Acute Code(s): K92.1 - MELENA SNOMED Code(s): 7412988 (4) Warfarin-induced coagulopathy Current Visit: Yes Status: Acute Code(s): D68.32 - HEMORRHAGIC DISORD D/T EXTRINSIC CIRCULATING ANTICOAGULANTS; T45.515A - ADVERSE EFFECT OF ANTICOAGULANTS, INITIAL ENCOUNTER SNOMED Code(s): 01429434 (5) Morbid obesity with BMI of 40.0-44.9, adult Current Visit: Yes Status: Acute Code(s): E66.01 - MORBID (SEVERE) OBESITY DUE TO EXCESS CALORIES; Z68.41 - BODY MASS INDEX (BMI) 40.0-44.9, ADULT SNOMED Code(s): 420210744 Plan: 1. Reverse INR prefer 1.5 or less for EGD evaluation possibly tomorrow. 2. Clear liquid diet. 3. CBC every 6. 4. Protonix 40 mg IV twice daily. 5. Hold Coumadin. The inside sales advisor has discussed the risks, benefits and alternative therapies for the above-mentioned procedure and for both sedation/analgesia as well as necessary blood product administration, if indicated, as they pertain to this patient. The patient has indicated understanding and acceptance of the risks and procedures discussed. Thank you for this kind referral and the opportunity to participate in the care of your patient. This consultation was discussed with Dr. Soliman. The impression and plan of care have been directed as dictated.
[2017-10-09 11:11] LABS: Glucose,Whole Blood 142 mg/dL (75-99)
[2017-10-09] MEDS: INSULIN ASPART 100 UNIT/ML 1 ML 10 ML VIAL SQ SCH ×3 (12:43→21:18)
[2017-10-09 12:46] LABS: Basophils % (A) 1 %; Eosinophils # (A) 0.3 k/uL (0-0.7); Eosinophils % (A) 6 %; HCT 31.7 % (39.0-53.0); HGB 10.4 gm/dL (13.0-17.5); Hypochromasia Slight; Lymphocytes # (A) 1.5 k/uL (1.0-4.8); Lymphocytes % (A) 27 %; MCH 27.8 pg (25.0-35.0); MCHC 32.7 g/dL (31.0-37.0); Mean Platelet Volume 6.9; Monocytes # (A) 0.3 k/uL (0-1.0); Monocytes % (A) 5 %; Neutrophils # (A) 3.1 k/uL (1.3-7.7); Neutrophils % (A) 59 %; Platelet Count 377 k/uL (150-450); Poikilocytosis Slight; RBC 3.72 m/uL (4.30-5.90); RDW 15.3 % (11.5-15.5); WBC 5.4 k/uL (3.8-10.6)
--- NOTE | 2017-10-09 13:18 | P.HPIM ---
History of Present Illness 51-year-old gentleman the on Coumadin for DVT of the right lower lip which happened about 5 months ago came in with complaints of dark stools started about 3 days ago patient had 3-4.stools day before and 2 days ago as today patient had 1 dark stool denied any significant abdominal pain patient has some nonspecific abdominal with denied any epigastric abdominal pain denied any coffee-ground emesis and hematemesis. Patient didn't have any dark stools since admission. Patient was started on Protonix patient's INR is 3.3. Patient denied any fever chills patient denied any diarrhea. Review of Systems REVIEW OF SYSTEMS: CONSTITUTIONAL: No fever, no malaise, no fatigue. HEENT: No recent visual problems or hearing problems. Denied any sore throat. CARDIOVASCULAR: No chest pain, orthopnea, PND, no palpitations, no syncope. PULMONARY: No shortness of breath, no cough, no hemoptysis. GASTROINTESTINAL: As mentioned in HPI NEUROLOGICAL: No headaches, no weakness, no numbness. HEMATOLOGICAL: Denies any bleeding or petechiae. GENITOURINARY: Denies any burning micturition, frequency, or urgency. MUSCULOSKELETAL/RHEUMATOLOGICAL: Denies any joint pain, swelling, or any muscle pain. ENDOCRINE: Denies any polyuria or polydipsia. The rest of the 14-point review of systems is negative. Past Medical History Past Medical History: Diabetes Mellitus, Deep Vein Thrombosis (DVT), Hyperlipidemia, Hypertension, Sleep Apnea/CPAP/BIPAP Additional Past Medical History / Comment(s): open incisional area from umbilical hernia sx, STATES AWAITING TWYLA HIP REPLACEMENT. STATES CURRENT DVT LEFT LEG, HX OF KIDNEY STONES History of Any Multi-Drug Resistant Organisms: None Reported Past Surgical History: Appendectomy, Hernia Repair, Joint Replacement Additional Past Surgical History / Comment(s): right knee REPLACED, hernia x2, ABD AORTOGRAM 02/24/17 Past Anesthesia/Blood Transfusion Reactions: No Reported Reaction Past Psychological History: Depression Smoking Status: Current every day smoker Past Alcohol Use History: Rare Past Drug Use History: None Reported - Past Family History Mother History Unknown: Yes Family Medical History: Dementia, Diabetes Mellitus, Hyperlipidemia, Renal Disease Additional Family Medical History / Comment(s): dialysis Medications and Allergies Home Medications Medication Instructions Recorded Confirmed Type Atorvastatin [Lipitor] 40 mg PO HS 09/23/16 10/08/17 History Benazepril HCl 20 mg PO HS 09/23/16 10/08/17 History Glimepiride [Amaryl] 1 mg PO HS 09/23/16 10/08/17 History Aspirin 81 mg PO HS 10/08/17 10/08/17 History DULoxetine HCL [Cymbalta] 60 mg PO HS 10/08/17 10/08/17 History Docusate Sodium [Dok] 200 mg PO HS 10/08/17 10/08/17 History Ergocalciferol [Vitamin D2] 50,000 unit PO ESQUIVEL 10/08/17 10/08/17 History Warfarin [Coumadin] 7.5 mg PO HS 10/08/17 10/08/17 History metFORMIN HCL 2,000 mg PO HS 10/08/17 10/08/17 History Allergies Allergy/AdvReac Type Severity Reaction Status Date / Time No Known Allergies Allergy Verified 10/08/17 18:38 Physical Exam Vitals: Vital Signs Temp Pulse Pulse Resp BP BP Pulse Ox 10/09/17 08:00 72 20 10/09/17 07:00 98.4 F 72 20 144/75 98 10/08/17 23:09 97.8 F 80 16 113/57 99 10/08/17 21:43 98.3 F 69 18 124/64 97 10/08/17 20:26 71 18 114/62 97 10/08/17 17:45 97 F L 94 18 133/69 99 Intake and Output 10/08/17 10/09/17 10/09/17 22:59 06:59 14:59 Intake Total 480 Balance 480 Intake: Oral 480 Other: # Voids 2 Weight 133.81 kg PHYSICAL EXAMINATION: GENERAL: The patient is alert and oriented x3, not in any acute distress. Well developed, well nourished. HEENT: Pupils are round and equally reacting to light. EOMI. No scleral icterus. No conjunctival pallor. Normocephalic, atraumatic. No pharyngeal erythema. No thyromegaly. CARDIOVASCULAR: S1 and S2 present. No murmurs, rubs, or gallops. PULMONARY: Chest is clear to auscultation, no wheezing or crackles. ABDOMEN: Soft, nontender, nondistended, normoactive bowel sounds. No palpable organomegaly. MUSCULOSKELETAL: No joint swelling or deformity. EXTREMITIES: No cyanosis, clubbing, or pedal edema. NEUROLOGICAL: Gross neurological examination did not reveal any focal deficits. SKIN: No rashes. Results CBC & Chem 7: 10/09/17 12:17 10/09/17 06:41 Labs: Abnormal Lab Results - Last 24 Hours (Table) 10/08/17 10/08/17 10/08/17 Range/Units 18:13 18:13 18:13 RBC 3.99 L (4.30-5.90) m/uL Hgb 10.9 L (13.0-17.5) gm/dL Hct 33.7 L (39.0-53.0) % RDW 15.6 H (11.5-15.5) % PT (9.0-12.0) sec INR (<1.2) Chloride 108 H (98-107) mmol/L Glucose 149 H (74-99) mg/dL POC Glucose (mg/dL) (75-99) mg/dL Calcium 11.1 H (8.4-10.2) mg/dL Total Creatine Kinase 51 L (55-170) U/L Urine Blood (Negative) Urine RBC (0-5) /hpf Urine WBC (0-5) /hpf Amorphous Sediment (None) /hpf Urine Bacteria (None) /hpf Urine Mucus (None) /hpf 10/08/17 10/08/17 10/08/17 Range/Units 18:13 19:16 21:47 RBC (4.30-5.90) m/uL Hgb (13.0-17.5) gm/dL Hct (39.0-53.0) % RDW (11.5-15.5) % PT 30.5 H (9.0-12.0) sec INR 3.4 H (<1.2) Chloride (98-107) mmol/L Glucose (74-99) mg/dL POC Glucose (mg/dL) 106 H (75-99) mg/dL Calcium (8.4-10.2) mg/dL Total Creatine Kinase (55-170) U/L Urine Blood Moderate H (Negative) Urine RBC 59 H (0-5) /hpf Urine WBC 6 H (0-5) /hpf Amorphous Sediment Occasional H (None) /hpf Urine Bacteria Occasional H (None) /hpf Urine Mucus Rare H (None) /hpf 10/09/17 10/09/17 10/09/17 Range/Units 06:41 06:41 07:11 RBC 3.71 L (4.30-5.90) m/uL Hgb 10.2 L (13.0-17.5) gm/dL Hct 31.5 L (39.0-53.0) % RDW (11.5-15.5) % PT (9.0-12.0) sec INR (<1.2) Chloride 110 H (98-107) mmol/L Glucose 102 H (74-99) mg/dL POC Glucose (mg/dL) 110 H (75-99) mg/dL Calcium (8.4-10.2) mg/dL Total Creatine Kinase (55-170) U/L Urine Blood (Negative) Urine RBC (0-5) /hpf Urine WBC (0-5) /hpf Amorphous Sediment (None) /hpf Urine Bacteria (None) /hpf Urine Mucus (None) /hpf 10/09/17 10/09/17 Range/Units 11:07 12:17 RBC 3.72 L (4.30-5.90) m/uL Hgb 10.4 L (13.0-17.5) gm/dL Hct 31.7 L (39.0-53.0) % RDW (11.5-15.5) % PT (9.0-12.0) sec INR (<1.2) Chloride (98-107) mmol/L Glucose (74-99) mg/dL POC Glucose (mg/dL) 142 H (75-99) mg/dL Calcium (8.4-10.2) mg/dL Total Creatine Kinase (55-170) U/L Urine Blood (Negative) Urine RBC (0-5) /hpf Urine WBC (0-5) /hpf Amorphous Sediment (None) /hpf Urine Bacteria (None) /hpf Urine Mucus (None) /hpf Microbiology - Last 24 Hours (Table) 10/08/17 19:16 Urine Culture - Preliminary Urine,Voided Thrombosis Risk Factor Assmnt - Choose All That Apply Any of the Below Risk Factors Present?: Yes Each Factor Represents 1 point: Age 41-60 years, Obesity (BMI >25) Other Risk Factors: No Other congenital or acquired thrombophilia - If yes, enter type in comment: No Thrombosis Risk Factor Assessment Total Risk Factor Score: 2 Thrombosis Risk Factor Assessment Level: Low Risk Assessment and Plan Plan: -Acute upper GI bleed: Secondary to probably peptic ulcer disease and the coagulopathy secondary to Coumadin contributed to his upper GI bleed patient is on Protonix holding Coumadin. -History of DVT in the past: Unsure whether it's a provoked DVT or non-provoked DVT. Probably can hold off on Coumadin and do coagulation testing as his DVT was 5 months ago. -Type 2 diabetes mellitus: Hold off on oral hypertensive medications patient will be started on sliding scale insulin. -Hyperlipidemia -hypertension: Lisinopril will be held temporarily with concerns of hypotension if he has GI bleed. -Sleep apnea uses CPAP machine which will be continued
[2017-10-09 15:14] LABS: Hemoglobin A1C 6.3 % (4.0-6.0)
[2017-10-09 15:58] LABS: INR 2.6 (<1.2); Prothrombin Time 23.8 sec (9.0-12.0)
[2017-10-09 17:37] LABS: Glucose,Whole Blood 82 mg/dL (75-99)
[2017-10-09 18:24] LABS: Basophils % (A) 1 %; Eosinophils # (A) 0.3 k/uL (0-0.7); Eosinophils % (A) 5 %; HCT 34.1 % (39.0-53.0); HGB 10.5 gm/dL (13.0-17.5); Hypochromasia Slight; Lymphocytes # (A) 1.9 k/uL (1.0-4.8); Lymphocytes % (A) 33 %; MCH 26.4 pg (25.0-35.0); MCHC 30.6 g/dL (31.0-37.0); MCV 86.1 fL (80.0-100.0); Monocytes # (A) 0.3 k/uL (0-1.0); Monocytes % (A) 5 %; Neutrophils # (A) 3.1 k/uL (1.3-7.7); Neutrophils % (A) 55 %; Platelet Count 378 k/uL (150-450); Poikilocytosis Slight; RBC 3.96 m/uL (4.30-5.90); RDW 15.5 % (11.5-15.5); WBC 5.6 k/uL (3.8-10.6)
[2017-10-09 20:09] LABS: Glucose,Whole Blood 143 mg/dL (75-99)
[2017-10-09] MEDS: LISINOPRIL 20 MG TAB PO SCH (21:19)
[2017-10-09] MEDS: DULoxetine HCL 60 MG CAPSULE.DR PO SCH (21:19)
[2017-10-09] MEDS: PANTOPRAZOLE 40 MG/10 ML VIAL IVP SCH (21:20)
[2017-10-09] MEDS: ATORVASTATIN 40 MG TAB PO SCH (21:20)
[2017-10-10] MEDS ORDERED: ACETAMINOPHEN TAB 325 MG TAB PO STA
[2017-10-10 01:20] LABS: Basophils % (A) 1 %; Eosinophils # (A) 0.3 k/uL (0-0.7); Eosinophils % (A) 5 %; HCT 30.7 % (39.0-53.0); HGB 9.9 gm/dL (13.0-17.5); Hypochromasia Slight; Lymphocytes # (A) 2.3 k/uL (1.0-4.8); Lymphocytes % (A) 36 %; MCH 27.1 pg (25.0-35.0); MCHC 32.1 g/dL (31.0-37.0); MCV 84.3 fL (80.0-100.0); Mean Platelet Volume 6.7; Monocytes # (A) 0.3 k/uL (0-1.0); Monocytes % (A) 5 %; Neutrophils # (A) 3.3 k/uL (1.3-7.7); Neutrophils % (A) 52 %; Platelet Count 367 k/uL (150-450); Poikilocytosis Slight; RBC 3.64 m/uL (4.30-5.90); RDW 15.3 % (11.5-15.5); WBC 6.3 k/uL (3.8-10.6)
[2017-10-10 07:16] LABS: Glucose,Whole Blood 110 mg/dL (75-99)
[2017-10-10 07:39] LABS: Basophils % (A) 1 %; Eosinophils # (A) 0.3 k/uL (0-0.7); Eosinophils % (A) 5 %; HGB 10.1 gm/dL (13.0-17.5); Hypochromasia Slight; Lymphocytes # (A) 1.7 k/uL (1.0-4.8); Lymphocytes % (A) 34 %; MCHC 30.5 g/dL (31.0-37.0); MCV 85.4 fL (80.0-100.0); Monocytes # (A) 0.2 k/uL (0-1.0); Monocytes % (A) 4 %; Neutrophils # (A) 2.8 k/uL (1.3-7.7); Neutrophils % (A) 54 %; Platelet Count 356 k/uL (150-450); Poikilocytosis Slight; RBC 3.86 m/uL (4.30-5.90); RDW 15.3 % (11.5-15.5); WBC 5.2 k/uL (3.8-10.6)
[2017-10-10 07:47] LABS: Anion Gap 6 mmol/L; Blood Urea Nitrogen 6 mg/dL (9-20); Calcium 9.7 mg/dL (8.4-10.2); Carbon Dioxide 26 mmol/L (22-30); Chloride 110 mmol/L (98-107); Glucose 100 mg/dL (74-99); Potassium 4.2 mmol/L (3.5-5.1); Sodium 142 mmol/L (137-145)
[2017-10-10 07:49] LABS: INR 1.9 (<1.2); Prothrombin Time 17.2 sec (9.0-12.0)
[2017-10-10] MEDS: INSULIN ASPART 100 UNIT/ML 1 ML 10 ML VIAL SQ SCH ×4 (08:27→20:38)
[2017-10-10] MEDS ORDERED: PHYTONADIONE ORAL 5 MG/5 ML ORAL.SYRG PO STA (08:45)
--- NOTE | 2017-10-10 08:51 | P.PN ---
Subjective Progress Note Date: 10/10/17 Principal diagnosis: GI bleed Hgb 10.1. No bleeding. INR 1.9. Objective - Vital Signs Vital signs: Vital Signs Temp 98.4 F 10/10/17 07:18 Pulse 70 10/10/17 08:28 Resp 17 10/10/17 08:28 BP 119/59 10/10/17 07:18 Pulse Ox 97 10/10/17 07:18 Intake & Output 10/09/17 10/10/17 10/10/17 18:59 06:59 18:59 Intake Total 1885 225 Balance 1885 225 Weight 133.81 kg Intake: Intake, IV Titration 525 225 Amount Sodium Chloride 0.9% 1, 525 225 000 ml @ 75 mls/hr IV . [id number] [facility] Rx#:[id number] Oral 1360 Other: Voiding Method Toilet # Voids 1 1 - Exam General appearance: The patient is alert, oriented, in no acute distress. HET: Head is normocephalic and atraumatic. Pupils are equal and reactive. Oropharynx is clear without lesions. Neck: Supple without lymphadenopathy. Trachea midline. Heart: S1 S2. Regular rate and rhythm. Lungs: No crackles or wheezes are heard. Abdomen: Soft, nontender, nondistended with bowel sounds. No peritoneal signs. No palpable organomegaly or masses. Extremities: Normal skin color and turgor. No cyanosis, rash, ulceration, clubbing, or edema. Radial and pedal pulses are 2/4 bilaterally. Neurological: No focal deficits. Strength and sensation are grossly intact. - Labs CBC & Chem 7: 10/10/17 07:01 10/10/17 07:01 Labs: Abnormal Lab Results - Last 24 Hours (Table) 10/08/17 10/09/17 10/09/17 Range/Units 18:00 11:07 12:17 RBC 3.72 L (4.30-5.90) m/uL Hgb 10.4 L (13.0-17.5) gm/dL Hct 31.7 L (39.0-53.0) % MCHC (31.0-37.0) g/dL PT (9.0-12.0) sec INR (<1.2) Chloride (98-107) mmol/L BUN (9-20) mg/dL Glucose (74-99) mg/dL POC Glucose (mg/dL) 142 H (75-99) mg/dL Hemoglobin A1c 6.3 H (4.0-6.0) % 10/09/17 10/09/17 10/09/17 Range/Units 15:45 18:12 20:07 RBC 3.96 L (4.30-5.90) m/uL Hgb 10.5 L (13.0-17.5) gm/dL Hct 34.1 L (39.0-53.0) % MCHC 30.6 L (31.0-37.0) g/dL PT 23.8 H (9.0-12.0) sec INR 2.6 H (<1.2) Chloride (98-107) mmol/L BUN (9-20) mg/dL Glucose (74-99) mg/dL POC Glucose (mg/dL) 143 H (75-99) mg/dL Hemoglobin A1c (4.0-6.0) % 10/10/17 10/10/17 10/10/17 Range/Units 00:58 07:01 07:01 RBC 3.64 L 3.86 L (4.30-5.90) m/uL Hgb 9.9 L 10.1 L (13.0-17.5) gm/dL Hct 30.7 L 33.0 L (39.0-53.0) % MCHC 30.5 L (31.0-37.0) g/dL PT (9.0-12.0) sec INR (<1.2) Chloride 110 H (98-107) mmol/L BUN 6 L (9-20) mg/dL Glucose 100 H (74-99) mg/dL POC Glucose (mg/dL) (75-99) mg/dL Hemoglobin A1c (4.0-6.0) % 10/10/17 10/10/17 Range/Units 07:01 07:07 RBC (4.30-5.90) m/uL Hgb (13.0-17.5) gm/dL Hct (39.0-53.0) % MCHC (31.0-37.0) g/dL PT 17.2 H (9.0-12.0) sec INR 1.9 H (<1.2) Chloride (98-107) mmol/L BUN (9-20) mg/dL Glucose (74-99) mg/dL POC Glucose (mg/dL) 110 H (75-99) mg/dL Hemoglobin A1c (4.0-6.0) % Microbiology - Last 24 Hours (Table) 10/08/17 19:16 Urine Culture - Final Urine,Voided Assessment and Plan (1) Acute GI bleeding Narrative/Plan: 57-year-old male admitted with 2 day history of painless black colored bowel movements with warfarin-induced coagulopathy possible peptic ulcer disease. Current Visit: Yes Status: Acute Code(s): K92.2 - GASTROINTESTINAL HEMORRHAGE, UNSPECIFIED SNOMED Code(s): 45128892 (2) Acute blood loss anemia Current Visit: Yes Status: Acute Code(s): D62 - ACUTE POSTHEMORRHAGIC ANEMIA SNOMED Code(s): 943366359 (3) Melena Current Visit: Yes Status: Acute Code(s): K92.1 - MELENA SNOMED Code(s): 3525024 (4) Warfarin-induced coagulopathy Current Visit: Yes Status: Acute Code(s): D68.32 - HEMORRHAGIC DISORD D/T EXTRINSIC CIRCULATING ANTICOAGULANTS; T45.515A - ADVERSE EFFECT OF ANTICOAGULANTS, INITIAL ENCOUNTER SNOMED Code(s): 68695111 (5) Morbid obesity with BMI of 40.0-44.9, adult Current Visit: Yes Status: Acute Code(s): E66.01 - MORBID (SEVERE) OBESITY DUE TO EXCESS CALORIES; Z68.41 - BODY MASS INDEX (BMI) 40.0-44.9, ADULT SNOMED Code(s): 475532637 Plan: 1. Vitamin K 5 mg oral 1 today. 2. Full liquid diet. Nothing by mouth after midnight. CBC in a.m. EGD rescheduled for tomorrow morning. Assessment and plan a care discussed with Dr. Arana
[2017-10-10] MEDS: LACTATED RINGERS 1,000 ML IV SCH ×2 (09:23→19:51)
[2017-10-10 11:07] LABS: Glucose,Whole Blood 121 mg/dL (75-99)
[2017-10-10] MEDS: SODIUM CHLORIDE 0.9% 1,000 ML IV SCH (12:16)
[2017-10-10] MEDS: PANTOPRAZOLE 40 MG/10 ML VIAL IVP SCH ×2 (12:16→20:39)
[2017-10-10 16:48] VITALS: RESP 16
[2017-10-10 17:25] LABS: Glucose,Whole Blood 178 mg/dL (75-99)
--- NOTE | 2017-10-10 18:42 | P.PN ---
Subjective Progress Note Date: 10/10/17 Progress note being dictated for Dr. Maxwell Interval history:51-year-old gentleman the on Coumadin for DVT of the right lower lip which happened about 5 months ago came in with complaints of dark stools started about 3 days ago patient had 3-4.stools day before and 2 days ago as today patient had 1 dark stool denied any significant abdominal pain patient has some nonspecific abdominal with denied any epigastric abdominal pain denied any coffee-ground emesis and hematemesis. Patient didn't have any dark stools since admission. Patient was started on Protonix patient's INR is 3.3. Patient denied any fever chills patient denied any diarrhea. Review of Systems REVIEW OF SYSTEMS: CONSTITUTIONAL: No fever, no malaise, no fatigue. HEENT: No recent visual problems or hearing problems. Denied any sore throat. CARDIOVASCULAR: No chest pain, orthopnea, PND, no palpitations, no syncope. PULMONARY: No shortness of breath, no cough, no hemoptysis. GASTROINTESTINAL: As mentioned in HPI NEUROLOGICAL: No headaches, no weakness, no numbness. HEMATOLOGICAL: Denies any bleeding or petechiae. GENITOURINARY: Denies any burning micturition, frequency, or urgency. MUSCULOSKELETAL/RHEUMATOLOGICAL: Denies any joint pain, swelling, or any muscle pain. ENDOCRINE: Denies any polyuria or polydipsia. The rest of the 14-point review of systems is negative. 10/10/2017 no overnight events. No bleeding. Hemoglobin 10.1, INR 1.9. Complains of right lower quadrant abdominal discomfort. No bowel movement. EGD tomorrow. Objective - Vital Signs Vital signs: Vital Signs Temp 97.7 F 10/10/17 15:00 Pulse 72 10/10/17 15:00 Resp 16 10/10/17 15:00 BP 146/82 10/10/17 15:00 Pulse Ox 98 10/10/17 15:00 Intake & Output 10/09/17 10/10/17 10/10/17 18:59 06:59 18:59 Intake Total 2772 470 1094 Balance 9000 303 8156 Weight 133.81 kg Intake: Intake, IV Titration 525 225 600 Amount Sodium Chloride 0.9% 1, 525 225 600 000 ml @ 75 mls/hr IV . [id number] [facility] Rx#:[id number] Oral 1360 400 Other: Voiding Method Toilet # Voids 1 2 - Exam GENERAL: The patient is alert and oriented x3, sitting up in bed, no acute distress. Well developed, well nourished. HEENT: Pupils are round and equally reacting to light. EOMI. No scleral icterus. No conjunctival pallor. Normocephalic, atraumatic. No pharyngeal erythema. No thyromegaly. CARDIOVASCULAR: S1 and S2 present. No murmurs, rubs, or gallops. PULMONARY: Chest is clear to auscultation, no wheezing or crackles. ABDOMEN: Soft, nontender, nondistended, normoactive bowel sounds. No palpable organomegaly. MUSCULOSKELETAL: No joint swelling or deformity. EXTREMITIES: No cyanosis, clubbing, or pedal edema. NEUROLOGICAL: Gross neurological examination did not reveal any focal deficits. SKIN: No rashes. - Labs CBC & Chem 7: 10/10/17 07:01 10/10/17 07:01 Labs: Abnormal Lab Results - Last 24 Hours (Table) 10/09/17 10/10/17 10/10/17 Range/Units 20:07 00:58 07:01 RBC 3.64 L 3.86 L (4.30-5.90) m/uL Hgb 9.9 L 10.1 L (13.0-17.5) gm/dL Hct 30.7 L 33.0 L (39.0-53.0) % MCHC 30.5 L (31.0-37.0) g/dL PT (9.0-12.0) sec INR (<1.2) Chloride (98-107) mmol/L BUN (9-20) mg/dL Glucose (74-99) mg/dL POC Glucose (mg/dL) 143 H (75-99) mg/dL 10/10/17 10/10/17 10/10/17 Range/Units 07:01 07:01 07:07 RBC (4.30-5.90) m/uL Hgb (13.0-17.5) gm/dL Hct (39.0-53.0) % MCHC (31.0-37.0) g/dL PT 17.2 H (9.0-12.0) sec INR 1.9 H (<1.2) Chloride 110 H (98-107) mmol/L BUN 6 L (9-20) mg/dL Glucose 100 H (74-99) mg/dL POC Glucose (mg/dL) 110 H (75-99) mg/dL 10/10/17 10/10/17 Range/Units 11:06 17:24 RBC (4.30-5.90) m/uL Hgb (13.0-17.5) gm/dL Hct (39.0-53.0) % MCHC (31.0-37.0) g/dL PT (9.0-12.0) sec INR (<1.2) Chloride (98-107) mmol/L BUN (9-20) mg/dL Glucose (74-99) mg/dL POC Glucose (mg/dL) 121 H 178 H (75-99) mg/dL Microbiology - Last 24 Hours (Table) 10/08/17 19:16 Urine Culture - Final Urine,Voided Assessment and Plan Assessment: -Acute upper GI bleed: Secondary to probably peptic ulcer disease and the coagulopathy secondary to Coumadin contributed to his upper GI bleed patient is on Protonix holding Coumadin. -History of DVT in the past: Unsure whether it's a provoked DVT or non-provoked DVT. Probably can hold off on Coumadin and do coagulation testing as his DVT was 5 months ago. -Type 2 diabetes mellitus -Hyperlipidemia -hypertension: Lisinopril will be held temporarily with concerns of hypotension if he has GI bleed. -Sleep apnea uses CPAP machine which will be continued Continuing current medication regime ,monitoring and symptomatic treatment. Vitamin K 5 mg today. Hold Coumadin. EGD scheduled for tomorrow. Discharge planning in progress for tomorrow pending EGD results. The impression and plan of care has been dictated as directed. : I performed a history and examination of this patient, discussed the same with the dictator. I agree with the dictator's note ,documented as a scribe. Any additional findings or plans will be noted.
[2017-10-10 20:15] LABS: Glucose,Whole Blood 138 mg/dL (75-99)
[2017-10-10] MEDS: ATORVASTATIN 40 MG TAB PO SCH (20:38)
[2017-10-10] MEDS: DULoxetine HCL 60 MG CAPSULE.DR PO SCH (20:38)
[2017-10-10] MEDS: LISINOPRIL 20 MG TAB PO SCH (20:39)
[2017-10-11] MEDS: SODIUM CHLORIDE 0.9% 1,000 ML IV SCH (03:45)
[2017-10-11] MEDS ORDERED: LACTATED RINGERS 1,000 ML IV SCH (06:30)
[2017-10-11 07:27] LABS: Glucose,Whole Blood 131 mg/dL (75-99)
[2017-10-11 08:01] LABS: INR 1.1 (<1.2); Prothrombin Time 11.1 sec (9.0-12.0)
[2017-10-11 08:07] LABS: Basophils # (A) 0.1 k/uL (0-0.2); Basophils % (A) 1 %; Eosinophils # (A) 0.3 k/uL (0-0.7); Eosinophils % (A) 5 %; HCT 33.2 % (39.0-53.0); HGB 10.9 gm/dL (13.0-17.5); Hypochromasia Slight; Lymphocytes # (A) 1.7 k/uL (1.0-4.8); Lymphocytes % (A) 27 %; MCH 27.7 pg (25.0-35.0); MCHC 32.7 g/dL (31.0-37.0); MCV 84.7 fL (80.0-100.0); Mean Platelet Volume 6.3; Monocytes # (A) 0.3 k/uL (0-1.0); Monocytes % (A) 5 %; Neutrophils # (A) 3.8 k/uL (1.3-7.7); Neutrophils % (A) 60 %; Platelet Count 400 k/uL (150-450); Poikilocytosis Slight; RBC 3.92 m/uL (4.30-5.90); WBC 6.3 k/uL (3.8-10.6)
[2017-10-11] MEDS: INSULIN ASPART 100 UNIT/ML 1 ML 10 ML VIAL SQ SCH ×2 (08:13→13:09)
[2017-10-11] MEDS: PANTOPRAZOLE 40 MG/10 ML VIAL IVP SCH (08:13)
[2017-10-11 08:16] LABS: Anion Gap 9 mmol/L; Blood Urea Nitrogen 7 mg/dL (9-20); Calcium 10.2 mg/dL (8.4-10.2); Carbon Dioxide 23 mmol/L (22-30); Chloride 109 mmol/L (98-107); Glucose 116 mg/dL (74-99); Potassium 4.4 mmol/L (3.5-5.1); Sodium 141 mmol/L (137-145)
[2017-10-11 08:22] VITALS: BP 121/71; TEMP 97.7
[2017-10-11] MEDS ORDERED: PROPOFOL 10 MG/ML 20 ML VIAL IV ONE (08:29)
[2017-10-11] MEDS ORDERED: LIDOCAINE 1% INJ 10MG/ML (20 ML MDV) ONE (08:29)
[2017-10-11] MEDS ORDERED: IV FLUID CONTINUATION 1,000 ML IV ONE (08:31)
--- NOTE | 2017-10-11 08:46 | P.PCN ---
Date of Procedure: 10/11/17 Procedure(s) Performed: BRIEF HISTORY: Patient is a 57-year-old, pleasant, male, admitted to the hospital with black stools and coffee-ground emesis. Has history of DVT and was on Coumadin which has been on hold and INR this morning is 1.1. He is hence scheduled for an upper endoscopy Evaluate Further. PROCEDURE PERFORMED: Esophagogastroduodenoscopy with biopsy. PREOPERATIVE DIAGNOSIS: Acute upper GI bleed. IV sedation per anesthesia. PROCEDURE: After informed consent was obtained, the patient was brought into the endoscopy unit. IV sedation was administered by Anesthesia under continuous monitoring. Initially the Olympus GIF-140 video endoscope was inserted into the mouth. Esophagus intubated without any difficulty. It was gradually advanced into the stomach and duodenum and carefully examined. The bulb and the second part of the duodenum appeared normal. The scope at this time was withdrawn to the stomach, adequately insufflated with air, and upon careful examination, mucosa of the antrum, had gastritis and biopsies were done from this area. The body, cardia and the fundus appeared normal. The scope was then withdrawn into the esophagus. The GE junction was located at 39 cm from the incisors. The esophagus appeared normal. There were 2 superficial erosion seen consistent with LA grade a reflux esophagitis and the patient tolerated the procedure well. IMPRESSION: 1. Mild antral erosive gastritis but no active upper GI bleed. 2. LA grade A reflux esophagitis. RECOMMENDATIONS: The findings of this examination were discussed with the patient as well as his family. He was advised to follow with the biopsy results. Diet will be advanced as tolerated. Coumadin can be resumed today..
[2017-10-11 09:44] VITALS: PULSE 72
[2017-10-11 11:34] LABS: Glucose,Whole Blood 120 mg/dL (75-99)
--- NOTE | 2017-10-11 12:06 | P.DS ---
Providers Date of admission: 10/08/17 19:51 Attending physician: Mara Rayo Consults: 10/08/17 19:57 Consult Physician Routine Consulting Provider: Angelito Soliman Consult Reason/Comments: GI Bleed; Abdominal Pain Do you want consulting provider notified?: Yes Primary care physician: Anna Gaffney [facility] Course: 57-year-old gentleman with history of recent DVT for a month ago on Coumadin came in with upper GI bleed found to have mild esophagitis and gastroneurology is recommending to resume Coumadin patient will be resumed on Coumadin will be discharged today to follow up with the primary care patient in 3-7 days and INR need to be repeated as an outpatient. Patient has low blood sugars because of which glipizide will be discontinued. PHYSICAL EXAMINATION: GENERAL: The patient is alert and oriented x3, not in any acute distress. Well developed, well nourished. HEENT: Pupils are round and equally reacting to light. EOMI. No scleral icterus. No conjunctival pallor. Normocephalic, atraumatic. No pharyngeal erythema. No thyromegaly. CARDIOVASCULAR: S1 and S2 present. No murmurs, rubs, or gallops. PULMONARY: Chest is clear to auscultation, no wheezing or crackles. ABDOMEN: Soft, nontender, nondistended, normoactive bowel sounds. No palpable organomegaly. MUSCULOSKELETAL: No joint swelling or deformity. EXTREMITIES: No cyanosis, clubbing, or pedal edema. NEUROLOGICAL: Gross neurological examination did not reveal any focal deficits. SKIN: No rashes. Please refer to dictation a progress note from yesterday for further details of hospitalization course and other chronic medical problems and management. Patient Condition at Discharge: Fair Plan - Discharge Summary Discharge Rx Participant: Yes New Discharge Prescriptions: New Omeprazole [PriLOSEC] 40 mg PO AC-BRKFST #15 capsule.dr Continue Benazepril HCl 20 mg PO HS Atorvastatin [Lipitor] 40 mg PO HS metFORMIN HCL 2,000 mg PO HS Ergocalciferol [Vitamin D2 (DRISDOL)] 50,000 unit PO ESQUIVEL Aspirin 81 mg PO HS DULoxetine HCL [Cymbalta] 60 mg PO HS Docusate Sodium [Dok] 200 mg PO HS Changed Warfarin [Coumadin] 6 mg PO HS #30 tab Discontinued Glimepiride [Amaryl] 1 mg PO HS Discharge Medication List Atorvastatin [Lipitor] 40 mg PO HS 09/23/16 [History] Benazepril HCl 20 mg PO HS 09/23/16 [History] Aspirin 81 mg PO HS 10/08/17 [History] DULoxetine HCL [Cymbalta] 60 mg PO HS 10/08/17 [History] Docusate Sodium [Dok] 200 mg PO HS 10/08/17 [History] Ergocalciferol [Vitamin D2 (DRISDOL)] 50,000 unit PO ESQUIVEL 10/08/17 [History] metFORMIN HCL 2,000 mg PO HS 10/08/17 [History] Omeprazole [PriLOSEC] 40 mg PO AC-BRKFST #15 capsule.dr 10/11/17 [Rx] Warfarin [Coumadin] 6 mg PO HS #30 tab 10/11/17 [Rx] Follow up Appointment(s)/Referral(s): Anna Gaffney DO [Primary Care Provider] - 3 Days Romina Arana MD [STAFF PHYSICIAN] - 1 Week Discharge Disposition: HOME SELF-CARE
[2017-10-12] MEDS ORDERED: ERGOCALCIFEROL 50,000 UNIT CAP PO SCH (09:00)
== END 2017-10-11 14:50 | disposition home or self-care (01) | DRG 378 ==
LOC: EC 17:44 → 5MS5E 19:51
PROVIDERS: ADMIT Hospitalist; ATTEND Hospitalist
PROC: 0DB68ZX Excision of Stomach, Via Natural or Artificial Opening Endoscopic, Diagnostic (ICD-10-PCS; principal; 2017-10-08)
DX: K27.4 Chronic or unspecified peptic ulcer, site unspecified, with hemorrhage (principal); D68.32 Hemorrhagic disorder due to extrinsic circulating anticoagulants; D62 Acute posthemorrhagic anemia; Z68.41 Body mass index [BMI] 40.0-44.9, adult; T45.515A Adverse effect of anticoagulants, initial encounter; E11.9 Type 2 diabetes mellitus without complications; E66.01 Morbid (severe) obesity due to excess calories; E78.5 Hyperlipidemia, unspecified; F32.9 Major depressive disorder, single episode, unspecified; G47.30 Sleep apnea, unspecified; I10 Essential (primary) hypertension; K21.0 Gastro-esophageal reflux disease with esophagitis; K29.60 Other gastritis without bleeding; K59.09 Other constipation; Z79.01 Long term (current) use of anticoagulants; Z79.82 Long term (current) use of aspirin; Z79.899 Other long term (current) drug therapy; Z83.3 Family history of diabetes mellitus; Z86.718 Personal history of other venous thrombosis and embolism; Z87.442 Personal history of urinary calculi; Z79.84 Long term (current) use of oral hypoglycemic drugs; Z96.651 Presence of right artificial knee joint; F17.210 Nicotine dependence, cigarettes, uncomplicated
CPT/HCPCS: 36415; 43239; 74177; 80048; 80053; 81001; 82272; 82550; 82553; 83036; 84484; 85025; 85610; 85730; 87086; 88305; 93005; 96361; 96374; 99285

== ENCOUNTER → 2018-11-24 | Outpatient (CLI) | payer MEDICARE | LOC: LABWHC1 14:39 | PROVIDERS: ATTEND Nurse Practitioner Family | DX: Z53.9 Procedure and treatment not carried out, unspecified reason (principal) ==

== ENCOUNTER → 2019-04-19 | Outpatient (CLI) | payer MEDICARE ==
--- NOTE | 2019-04-19 19:05 | US ---
EXAMINATION TYPE: US venous doppler duplex LE LT DATE OF EXAM: 04/19/2019 6:27 PM COMPARISON: US 2017 CLINICAL HISTORY: M79.662 pain left lower limb, R22.42 swelling. Pain and swelling left leg. Pt is on blood thinners. Hx DVT. SIDE PERFORMED: Left TECHNIQUE: The lower extremity deep venous system is examined utilizing real time linear array sonog maco with graded compression, doppler sonography and color-flow sonography. VESSELS IMAGED: External Iliac Vein (EIV) Common Femoral Vein Deep Femoral Vein Greater Saphenous Vein * Femoral Vein Popliteal Vein Proximal Calf Veins (* superficial vessels) Left Leg: No evidence of DVT in veins imaged from prox calf veins to EIV. Limited evaluation of prox calf veins due to edema. IMPRESSION: No evidence of deep venous thrombosis in the left leg.
== END | disposition home or self-care (01) ==
LOC: RADUSMAIN 17:13
PROVIDERS: ATTEND Nurse Practitioner Adult Health
DX: M79.662 Pain in left lower leg (principal); R22.42 Localized swelling, mass and lump, left lower limb

== ENCOUNTER → 2019-05-18 | Outpatient (CLI) | payer MEDICARE ==
--- NOTE | 2019-05-18 18:17 | XR ---
EXAMINATION TYPE: XR chest 2V DATE OF EXAM: 05/18/2019 COMPARISON: 11/23/2015 HISTORY: 58-year-old male smoker and shortness of breath TECHNIQUE: Frontal and lateral views FINDINGS: Heart normal size. Aorta and pulmonary vasculature within normal limits. Some strandy atelectasis in the lower lungs. Mild hyperinflation. No consolidation or pleural effusion. IMPRESSION: Mild hyperinflation may relate to a depth of inspiration or underlying emphysema. Some mild strandy a telectasis in the lower lungs. No acute process seen.
--- NOTE | 2019-05-18 18:18 | XR ---
EXAMINATION TYPE: XR abdomen 2V DATE OF EXAM: 05/18/2019 CLINICAL DATA: 58-year-old male constipation on and off, [facility] COMPARISON: 06/11/2013 FINDINGS: Large patient body habitus limits the evaluation. No definite free intraperitoneal air seen. No dilated small bowel or air-fluid levels. Moderate to large stool burden. Coils projecting at the mid abdomen from prior mesh repair. Degenerative changes at the right greater than left hips. IMPRESSION: Exam limited due to large patient body habitus. Moderate to large stool burden suggests constipation. Nonobstructive bowel gas pattern.
== END | disposition home or self-care (01) ==
LOC: RADXRYALE 15:01
PROVIDERS: ATTEND Physician Assistant Medical
DX: R91.8 Other nonspecific abnormal finding of lung field (principal); R05 Cough; K59.00 Constipation, unspecified; E83.52 Hypercalcemia; F17.210 Nicotine dependence, cigarettes, uncomplicated
CPT/HCPCS: 71046; 74019

== ENCOUNTER 2019-07-07 07:56 | Observation (INO) | payer MEDICARE ==
[2019-07-07] MEDS ORDERED: SODIUM CHLORIDE 0.9% 1,000 ML IV STA ×2 (08:08→08:39)
[2019-07-07] MEDS ORDERED: ONDANSETRON 4 MG/2 ML VIAL IVP STA (08:19)
[2019-07-07 08:25] LABS: Glucose,Whole Blood 126 mg/dL (75-99)
[2019-07-07 08:29] LABS: Anisocytosis Slight; Basophils # (A) 0.1 k/uL (0-0.2); Basophils % (A) 1 %; Eosinophils # (A) 0.8 k/uL (0-0.7); Eosinophils % (A) 8 %; HCT 42.4 % (39.0-53.0); HGB 13.9 gm/dL (13.0-17.5); Lymphocytes # (A) 2.3 k/uL (1.0-4.8); Lymphocytes % (A) 25 %; MCH 26.9 pg (25.0-35.0); MCHC 32.9 g/dL (31.0-37.0); MCV 81.8 fL (80.0-100.0); Mean Platelet Volume 6.9; Microcytosis Slight; Monocytes # (A) 0.5 k/uL (0-1.0); Monocytes % (A) 5 %; Neutrophils # (A) 5.6 k/uL (1.3-7.7); Neutrophils % (A) 59 %; Platelet Count 295 k/uL (150-450); RBC 5.18 m/uL (4.30-5.90); RDW 17.4 % (11.5-15.5); WBC 9.5 k/uL (3.8-10.6)
[2019-07-07 08:44] LABS: Partial Thromboplastin Time 45.6 sec (22.0-30.0); Prothrombin Time 56.2 sec (9.0-12.0)
[2019-07-07 08:50] LABS: INR 5.8 (<1.2)
[2019-07-07 09:07] LABS: Albumin 3.5 g/dL (3.5-5.0); Calcium 10.2 mg/dL (8.4-10.2); Magnesium 1.5 mg/dL (1.6-2.3); Total Bilirubin 0.5 mg/dL (0.2-1.3); Total Protein 6.2 g/dL (6.3-8.2)
--- NOTE | 2019-07-07 09:43 | ED ---
Weakness HPI - General Chief complaint: Weakness Stated complaint: vomiting Time Seen by Provider: 07/07/19 08:00 Source: patient Mode of arrival: ambulatory Limitations: no limitations - History of Present Illness Initial comments: The patient is a 5-year-old male with past medical history of diabetes, DVT on Coumadin and hypertension who presents emergency room with reported nausea vomiting diarrhea since Friday. The patient reports that he had onset of loose, nonbloody stools on Friday with multiple episodes per day. Denies any black, tarry or sticky stools. Denies hematochezia. No constipation. He did have mild abdominal pain however this fully resolved shortly after started. He then began having multiple episodes of nonbilious, nonbloody vomiting yesterday. Last episode was around 3 AM this morning. He does not have any medications at his disposal to take. He denies fevers or chills. No sick contacts with similar symptoms. Denies any recent travel. Does report that there is a possibility he could've gotten into some tainted foods. He denies any chest pain or shortness of breath. No back or flank pain. Denies any changes in his urination to include dysuria, hematuria or difficulty voiding. There are no other alleviating, precipitating or modifying factors - Related Data Home Medications Medication Instructions Recorded Confirmed Aspirin 81 mg PO HS 10/08/17 07/07/19 DULoxetine HCL [Cymbalta] 60 mg PO HS 10/08/17 07/07/19 metFORMIN HCL 2,000 mg PO HS 10/08/17 07/07/19 Glimepiride [Amaryl] 1 mg PO HS 11/20/18 07/07/19 Omeprazole [PriLOSEC] 40 mg PO HS 11/20/18 07/07/19 busPIRone HCL 30 mg PO HS 11/20/18 07/07/19 traZODone HCL 150 mg PO HS 11/20/18 07/07/19 Atorvastatin [Lipitor] 80 mg PO HS 07/07/19 07/07/19 Tamsulosin [Flomax] 0.4 mg PO HS 07/07/19 07/07/19 Previous Rx's Medication Instructions Recorded Benazepril HCl 10 mg PO HS #0 07/08/19 Warfarin Sodium [Coumadin] 6 mg PO DAILY #1 07/08/19 Allergies Allergy/AdvReac Type Severity Reaction Status Date / Time No Known Allergies Allergy Verified 07/07/19 09:00 Review of Systems ROS Statement: Those systems with pertinent positive or pertinent negative responses have been documented in the HPI. ROS Other: All systems not noted in ROS Statement are negative. Past Medical History Past Medical History: Diabetes Mellitus, Deep Vein Thrombosis (DVT), Hyperlipidemia, Hypertension, Sleep Apnea/CPAP/BIPAP Additional Past Medical History / Comment(s): Open incisional area from umbilical hernia sx. NEEDS MORE HERNIA REPAIRS. STATES AWAITING TWYLA HIP REPLACEMENT. STATES CURRENT DVT LEFT LEG, HX OF KIDNEY STONES History of Any Multi-Drug Resistant Organisms: None Reported Past Surgical History: Appendectomy, Hernia Repair, Joint Replacement Additional Past Surgical History / Comment(s): APPENDECTOMY? Right knee REPLACED, hernia x2, ABD AORTOGRAM 02/24/17 Past Anesthesia/Blood Transfusion Reactions: No Reported Reaction Past Psychological History: Depression Smoking Status: Current every day smoker Past Alcohol Use History: Rare Past Drug Use History: None Reported - Past Family History Mother History Unknown: Yes Family Medical History: Dementia, Diabetes Mellitus, Hyperlipidemia, Renal Disease Additional Family Medical History / Comment(s): dialysis Father Family Medical History: Coronary Artery Disease (CAD), Diabetes Mellitus General Exam Limitations: no limitations General appearance: alert, in no apparent distress Head exam: Present: atraumatic, normocephalic, normal inspection Eye exam: Present: normal appearance, PERRL, EOMI. Absent: scleral icterus, conjunctival injection, periorbital swelling ENT exam: Present: normal exam, mucous membranes moist Neck exam: Present: normal inspection. Absent: tenderness, meningismus, lymphadenopathy Respiratory exam: Present: normal lung sounds bilaterally. Absent: respiratory distress, wheezes, rales, rhonchi, stridor Cardiovascular Exam: Present: regular rate, normal rhythm, normal heart sounds. Absent: systolic murmur, diastolic murmur, rubs, gallop, clicks GI/Abdominal exam: Present: soft, normal bowel sounds. Absent: distended, tenderness, guarding, rebound, rigid Extremities exam: Present: normal inspection, full ROM, normal capillary refill. Absent: tenderness, pedal edema, joint swelling, calf tenderness Back exam: Present: normal inspection Neurological exam: Present: alert, oriented X3, CN II-XII intact Psychiatric exam: Present: normal affect, normal mood Skin exam: Present: warm, dry, intact, normal color. Absent: rash Course Vital Signs 07/07/19 07/07/19 07/07/19 08:00 08:15 08:19 Temperature 97.6 F Pulse Rate 97 84 Pulse Rate [ 88 Supine Pulse Oximetery] Respiratory 19 16 Rate Blood Pressure 58/37 80/79 Blood Pressure [Right Arm] O2 Sat by Pulse 98 100 Oximetry 07/07/19 07/07/19 07/07/19 09:04 10:32 10:58 Temperature Pulse Rate 78 83 76 Pulse Rate [ Supine Pulse Oximetery] Respiratory 16 16 Rate Blood Pressure 96/49 103/67 79/51 Blood Pressure [Right Arm] O2 Sat by Pulse 100 99 99 Oximetry 07/07/19 07/07/19 07/07/19 11:07 14:00 16:00 Temperature 97.6 F Pulse Rate 71 Pulse Rate [ 75 Supine Pulse Oximetery] Respiratory 16 16 Rate Blood Pressure 97/87 Blood Pressure 95/59 106/60 [Right Arm] O2 Sat by Pulse 99 97 Oximetry 07/07/19 16:30 Temperature Pulse Rate Pulse Rate [ Supine Pulse Oximetery] Respiratory Rate Blood Pressure Blood Pressure 95/63 [Right Arm] O2 Sat by Pulse Oximetry EKG Findings - EKG Comments: EKG Findings:: EKG demonstrates a normal sinus rhythm with ventricular rate of 91. [place] interval 164. QRS 94. QTC 423. There is incomplete right bundle branch block. No acute ST segment elevations or depressions concerning for ischemic changes Medical Decision Making - Medical Decision Making Upon arrival the patient was placed in room 2. Peripheral IV was established. Patient was given a liter bolus of normal saline and does not have a history of congestive heart failure. Laboratory studies were conducted. I did give the patient 4 mg of Zofran for his nausea. I did perform a CT of the patient's abdomen and pelvis as well. Laboratory studies demonstrated a 1+ protein, rare mucus. CBC is normal. INR 5.8. PTT 56.2. PTT 5.6. Creatinine is elevated at 1.4. Previously the patient's hemoglobin was 0.9. Magnesium 1.5. I did replace the patient's magnesium. He is started on 120 mL of saline per hour. The patient is reevaluated and has had no further episodes of nausea or vomiting. CT of the patient's abdomen demonstrates partially obstructing 4 mm proximal right ureteral stone. Nonobstructing right renal calcifications also present. Small amount of air within the subcutaneous tissue. This is adjacent to an anterior abdominal wall hernia containing a loop of colon. Anterior abdominal hernia containing nonobstructive colon. I reevaluated the patient and he feels improved. His blood pressure remained marginal. Discussed diagnosis, differential and treatment options. Recommend hospital admission for continued fluid hydration for which the patient did agree. I will hold the patient's Coumadin. Urinalysis is clean and therefore there is no concern for septic stone at this time. I admitted the patient to Dr. Rayo accept admission for the patient. He is currently awaiting a bed on the floor - Lab Data Result diagrams: 07/08/19 06:04 07/08/19 06:04 Lab Results 07/07/19 07/07/19 07/07/19 Range/Units 08:13 08:13 08:13 WBC 9.5 (3.8-10.6) k/uL RBC 5.18 (4.30-5.90) m/uL Hgb 13.9 (13.0-17.5) gm/dL Hct 42.4 (39.0-53.0) % MCV 81.8 (80.0-100.0) fL MCH 26.9 (25.0-35.0) pg MCHC 32.9 (31.0-37.0) g/dL RDW 17.4 H (11.5-15.5) % Plt Count 295 (150-450) k/uL Neutrophils % 59 % Lymphocytes % 25 % Monocytes % 5 % Eosinophils % 8 % Basophils % 1 % Neutrophils # 5.6 (1.3-7.7) k/uL Lymphocytes # 2.3 (1.0-4.8) k/uL Monocytes # 0.5 (0-1.0) k/uL Eosinophils # 0.8 H (0-0.7) k/uL Basophils # 0.1 (0-0.2) k/uL Anisocytosis Slight Microcytosis Slight PT (9.0-12.0) sec INR (<1.2) APTT (22.0-30.0) sec Sodium 139 (137-145) mmol/L Potassium 4.0 (3.5-5.1) mmol/L Chloride 110 H (98-107) mmol/L Carbon Dioxide 19 L (22-30) mmol/L Anion Gap 10 mmol/L BUN 16 (9-20) mg/dL Creatinine 1.48 H (0.66-1.25) mg/dL Est GFR (CKD-EPI)AfAm 59 (>60 ml/min/1.73 sqM) Est GFR (CKD-EPI)NonAf 51 (>60 ml/min/1.73 sqM) Glucose 127 H (74-99) mg/dL POC Glucose (mg/dL) (75-99) mg/dL POC Glu [facility] [employer] ID Plasma Lactic Acid Jose 1.7 (0.7-2.0) mmol/L Calcium 10.2 (8.4-10.2) mg/dL Magnesium 1.5 L (1.6-2.3) mg/dL Total Bilirubin 0.5 (0.2-1.3) mg/dL AST 20 (17-59) U/L ALT 35 (4-49) U/L Alkaline Phosphatase 77 (38-126) U/L Creatine Kinase 41 L (55-170) U/L Total Protein 6.2 L (6.3-8.2) g/dL Albumin 3.5 (3.5-5.0) g/dL Lipase 31 (23-300) U/L TSH 3.630 (0.465-4.680) mIU/L Urine Color Urine Appearance (Clear) Urine pH (5.0-8.0) Ur Specific [place] (1.001-1.035) Urine Protein (Negative) Urine Glucose (UA) (Negative) Urine Ketones (Negative) Urine Blood (Negative) Urine Nitrite (Negative) Urine Bilirubin (Negative) Urine Urobilinogen (<2.0) mg/dL Ur Leukocyte Esterase (Negative) Urine RBC (0-5) /hpf Urine WBC (0-5) /hpf Ur Squamous Epith Cells (0-4) /hpf Hyaline Casts (0-2) /lpf Urine Mucus (None) /hpf 07/07/19 07/07/19 07/07/19 Range/Units 08:13 08:23 09:58 WBC (3.8-10.6) k/uL RBC (4.30-5.90) m/uL Hgb (13.0-17.5) gm/dL Hct (39.0-53.0) % MCV (80.0-100.0) fL MCH (25.0-35.0) pg MCHC (31.0-37.0) g/dL RDW (11.5-15.5) % Plt Count (150-450) k/uL Neutrophils % % Lymphocytes % % Monocytes % % Eosinophils % % Basophils % % Neutrophils # (1.3-7.7) k/uL Lymphocytes # (1.0-4.8) k/uL Monocytes # (0-1.0) k/uL Eosinophils # (0-0.7) k/uL Basophils # (0-0.2) k/uL Anisocytosis Microcytosis PT 56.2 H (9.0-12.0) sec INR 5.8 H* (<1.2) APTT 45.6 H (22.0-30.0) sec Sodium (137-145) mmol/L Potassium (3.5-5.1) mmol/L Chloride (98-107) mmol/L Carbon Dioxide (22-30) mmol/L Anion Gap mmol/L BUN (9-20) mg/dL Creatinine (0.66-1.25) mg/dL Est GFR (CKD-EPI)AfAm (>60 ml/min/1.73 sqM) Est GFR (CKD-EPI)NonAf (>60 ml/min/1.73 sqM) Glucose (74-99) mg/dL POC Glucose (mg/dL) 126 H (75-99) mg/dL POC Glu [facility] [employer] ID Dasia, Ana Plasma Lactic Acid Jose (0.7-2.0) mmol/L Calcium (8.4-10.2) mg/dL Magnesium (1.6-2.3) mg/dL Total Bilirubin (0.2-1.3) mg/dL AST (17-59) U/L ALT (4-49) U/L Alkaline Phosphatase (38-126) U/L Creatine Kinase (55-170) U/L Total Protein (6.3-8.2) g/dL Albumin (3.5-5.0) g/dL Lipase (23-300) U/L TSH (0.465-4.680) mIU/L Urine Color Yellow Urine Appearance Clear (Clear) Urine pH 6.5 (5.0-8.0) Ur Specific [place] 1.024 (1.001-1.035) Urine Protein 1+ H (Negative) Urine Glucose (UA) Negative (Negative) Urine Ketones Negative (Negative) Urine Blood Negative (Negative) Urine Nitrite Negative (Negative) Urine Bilirubin Negative (Negative) Urine Urobilinogen <2.0 (<2.0) mg/dL Ur Leukocyte Esterase Negative (Negative) Urine RBC <1 (0-5) /hpf Urine WBC 2 (0-5) /hpf Ur Squamous Epith Cells <1 (0-4) /hpf Hyaline Casts 1 (0-2) /lpf Urine Mucus Rare H (None) /hpf Critical Care Time Critical Care Time: Yes Total Critical Care Time: 35 (minutes) Disposition Clinical Impression: Nausea & vomiting, Diarrhea, Ureteral calculus, right, Hypotension Disposition: ADMITTED IP TO THIS [facility] Condition: Stable Is patient prescribed a controlled substance at d/c from ED?: No Decision to Admit Reason: Admit from EC Decision Date: 07/07/19 Decision Time: 10:45
--- NOTE | 2019-07-07 10:17 | CT ---
EXAMINATION TYPE: CT abdomen pelvis w con DATE OF EXAM: 07/07/2019 COMPARISON: 10/08/2017 INDICATION: Abdominal pain, nausea, vomiting, diarrhea and hypotension DLP: 2297.6 mGycm, Automated exposure control for dose reduction was used. CONTRAST: 100 ml mL of Isovue 300. Study performed without Oral Contrast TECHNIQUE: Axial images were obtained from above the diaphragm to the pubic rami in the axial plane a t 5 mm thick sections. Reconstructed images are reviewed on the computer in the coronal plane. FINDINGS: There is an anterior abdominal wall hernia containing a loop of colon. No obstruction is ev ident. There is some additional subcutaneous air. Underlying abscess should be considered. This measu res approximately 1.1 x 2.5 cm with a tiny slightly more midline focus of air adjacent to surgical cl ip or marker. Limited CT sections are obtained the lung bases. The lung bases are clear. CT ABDOMEN: Liver: Normal Spleen: Normal Pancreas: Mild fatty infiltration is present. Adrenal glands: The adrenal glands are normal. Gallbladder: Normal Kidneys: No masses are evident. No hydronephrosis is present. No cysts are present. There is a 0.4 cm nonobstructing renal stone inferior pole right kidney. There is a 0.3 cm nonobstructing renal sto ne superior pole right kidney. There is a 0.4 cm partially obstructing proximal right ureteral stone. Series 201 image 52. Aorta: Vascular calcification is within the aorta. Inferior vena cava: Normal. CT PELVIS: There is prior anterior abdominal wall hernia surgery in the periumbilical region Loops of bowel within the abdomen and pelvis are normal. Studies performed without oral contrast limiting bowel evaluation. Appendix: Not visualized. There may be prior appendix surgery. Correlate with the history. Urinary bladder: Decompressed limiting evaluation. Some mild wall thickening cannot be excluded on th is exam. Genitourinary structures: Prostate is prominent contains a few small scattered calcifications. Osseous structures: No suspicious lytic or sclerotic lesions. Degenerative changes are at the bilater al hips. IMPRESSIONS: 1. Partially obstructing 0.4 cm proximal right ureteral stone. 2. Nonobstructing right renal calcifications are present. 3. Small amount of air within the subcutaneous tissues. Underlying infection should be considered. Th is is adjacent to a anterior abdominal wall hernia containing a loop of colon. 4. Anterior abdominal hernia containing nonobstructed colon.
[2019-07-07] MEDS ORDERED: MAGNESIUM SULFATE-D5W PMX 1 GM in DEXTROSE/WATER 1 100ML.BAG IVPB ONE (10:20)
[2019-07-07] MEDS: SODIUM CHLORIDE 0.9% 1,000 ML IV SCH ×2 (10:31→16:20)
[2019-07-07 10:33] LABS: Appearance,Urine Clear (Clear); Bilirubin,Urine Negative (Negative); Blood,Urine Negative (Negative); Color,Urine Yellow; Glucose,Urine (UA) Negative (Negative); Hyaline Casts,Urine 1 /lpf (0-2); Ketones,Urine Negative (Negative); Leukocyte Esterase,Urine Negative (Negative); Mucus,Urine Rare /hpf; Nitrite,Urine Negative (Negative); PH, Urine 6.5 (5.0-8.0); Protein,Urine 1+ (Negative); RBC,Urine <1 /hpf (0-5); Specific Gravity,Urine 1.024 (1.001-1.035); Squamous Epithelial Cell,Urine <1 /hpf (0-4); Urobilinogen,Urine <2.0 mg/dL (<2.0); WBC,Urine 2 /hpf (0-5)
[2019-07-07] MEDS ORDERED: ONDANSETRON 4 MG/2 ML VIAL IVP PRN (10:46)
[2019-07-07] MEDS ORDERED: NALOXONE 0.4 MG/ML 1 ML VIAL IV PRN (10:46)
[2019-07-07] MEDS ORDERED: SODIUM CHLORIDE 0.9% 500 ML 500 ML IV STA (10:57)
[2019-07-07 14:22] LABS: Glucose,Whole Blood 66 mg/dL (75-99)
[2019-07-07 14:40] LABS: Glucose,Whole Blood 82 mg/dL (75-99)
[2019-07-07] MEDS ORDERED: ALPRAZolam 0.25 MG TAB PO PRN (16:42)
[2019-07-07] MEDS ORDERED: TEMAZEPAM 15 MG CAP PO PRN (16:42)
[2019-07-07 16:46] LABS: Glucose,Whole Blood 86 mg/dL (75-99)
[2019-07-07] MEDS: ACETAMINOPHEN TAB 500 MG TAB PO PRN (17:57)
--- NOTE | 2019-07-07 19:40 | HP ---
HISTORY AND PHYSICAL DATE OF SERVICE: 07/07/2019 CHIEF COMPLAINTS: Weakness, vomiting, diarrhea. HISTORY OF PRESENT ILLNESS: This 59-year-old gentleman with a past medical history of multiple medical problems, including diabetes mellitus, type 2, DVT, history of GI bleed, hypertension, hyperlipidemia, history of prostate disorder, history of peripheral neuropathy, appendectomy, depression, being followed by Dr. Bond in the outpatient setting, was not feeling well since the last couple of days. Patient had significant nausea and vomiting, unable to keep anything down. Patient had significant diarrhea also. The only thing the patient can remember is eating gyro from a fast food restaurant, but several other people ate the same food and did not have symptoms. There is no history of any fever, rigor or chills. The patient was taken to [facility]. Patient was found to be severely dehydrated and hypotensive. Blood pressure was found to be 58/77, but after 2 L bolus, the blood pressure improved. Patient also had magnesium of 1.5 and creatinine 1.4. Patient also had Coumadin coagulopathy. There is no history of any fever, rigor or chills. No history of headache, loss of consciousness, seizures. Patient is being closely monitored. PAST MEDICAL HISTORY: 1. History of DVT. 2. History of diabetes mellitus. 3. Hypertension. 4. Hyperlipidemia. 5. History of myocardial infarction. 6. History of appendectomy. 7. History of depression. HOME MEDICATIONS: 1. Trazodone 150 mg at bedtime. 2. Metformin 2 grams p.o. at bedtime. 3. Buspirone 30 mg at bedtime. 4. Coumadin 12 mg p.o. Friday, Friday and 9 mg on Friday, Friday, Friday, , Friday. 5. Flomax 0.4 at bedtime. 6. Prilosec 40 mg at bedtime. 7. Amaryl 1 mg at bedtime. 8. Cymbalta 60 mg at bedtime. 9. Benazepril 20 mg at bedtime. 10.Lipitor 80 mg at bedtime. 11.Aspirin 81 mg at bedtime. ALLERGIES: NONE. FAMILY HISTORY: History of dementia, diabetes mellitus, hyperlipidemia, history renal disease and hemodialysis. SOCIAL HISTORY: History of continued ongoing smoking, alcohol intake. REVIEW OF SYSTEMS: ENT: No diminished hearing. No diminished vision. CARDIOVASCULAR SYSTEM: No angina, palpitations. RESPIRATORY SYSTEM: No cough, hemoptysis. GI: As mentioned earlier. : No dysuria or retention. NERVOUS SYSTEM: No numbness, weakness. ALLERGY/IMMUNOLOGY: No asthma, hayfever. MUSCULOSKELETAL: As mentioned earlier. HEMATOLOGY/ONCOLOGY: No history of anemia. ENDOCRINE: As mentioned earlier. CONSTITUTIONAL: As mentioned earlier. DERMATOLOGY: Negative. RHEUMATOLOGY: Negative. PSYCHIATRY: As mentioned earlier. PHYSICAL EXAMINATION: Patient alert and oriented x3. Pulse is 75, blood pressure 106/60, respirations 16, temperature 97.6, pulse ox 97% on room air. HEENT: Conjunctivae normal. Oral mucosa moist. NECK: No jugular venous distention. No carotid bruit. No lymph node enlargement. CARDIOVASCULAR SYSTEM: S1, S2 muffled. RESPIRATORY SYSTEM: Breath sounds diminished at the bases. A few scattered rhonchi. ABDOMEN: Soft, obese. Mild diffuse discomfort on palpation. No guarding. No rigidity. No mass palpable. LEGS: No edema. No swelling. NERVOUS SYSTEM: Higher functions as mentioned earlier. Moves all 4 limbs. No focal motor or sensory deficit. LYMPHATICS: No lymph node palpable in neck, axillae or groin. JOINTS: No active deforming arthropathy. LABS: CBC within normal limits and INR 5.8. Sodium 139, potassium 4, glucose 127, total protein 6.2, and magnesium 1.5. ASSESSMENT: 1. Acute nausea, vomiting, diarrhea; possible acute gastroenteritis with dehydration, severe hypotension. 2. Acute renal failure, possibly acute prerenal renal failure with acute tubular necrosis, present on admission, secondary to severe dehydration and diarrhea. 3. Hypomagnesemia. 4. Hypoglycemia. 5. Coumadin coagulopathy. 6. History of diabetes mellitus, type 2, uncontrolled, with hypoglycemia. 7. History of deep venous thrombosis. 8. History of gastrointestinal bleed. 9. Hyperlipidemia. 10.Hypertension. 11.History of degenerative joint disease. 12.History of prostate disorder. 13.History of renal disease. 14.History of sleep apnea. 15.History of bilateral peripheral neuropathy. 16.History of obstructive sleep apnea. 17.History of nephrolithiasis. 18.History of appendectomy. 19.History of hernia repair. 20.History of depression. 21.History of continued ongoing nicotine dependence. 22.Obesity with body mass index of 39.5. 23.FULL CODE. RECOMMENDATIONS AND DISCUSSION: In this 59-year-old gentleman who presented with multiple complex medical issues, we will monitor the patient closely, continue the current medications, continue symptomatic treatment. The patient has significant gastrointestinal issues, most likely acute diarrheal illness causing significant diarrhea and dehydration and renal failure. The patient received 2 L of fluid bolus. I recommend to continue the IV fluids, and if the diarrhea recurs, I would also recommend cultures and possibly empiric antibiotics also. As far as the Coumadin coagulopathy is concerned, we will hold the Coumadin and continue to monitor. Repeat labs. Prognosis guarded because of multiple complex medical issues. Further recommendations to follow. Otherwise, resume the home medications. Medication reconciliation was done. Prognosis guarded because of multiple complex medical issues. Discussed with the patient, who understands and agrees. A copy of this dictation is being forwarded to Dr. Bond, who is the primary physician. KISHORE / MELONIE: [id number] /
[2019-07-07 20:06] LABS: Glucose,Whole Blood 117 mg/dL (75-99)
[2019-07-07] MEDS: HEPARIN SODIUM,PORCINE 5,000 UNIT/ML 1 ML VIAL SQ SCH (20:28)
[2019-07-07] MEDS ORDERED: busPIRone HCl 10 MG TAB PO SCH (21:00)
[2019-07-07] MEDS ORDERED: PANTOPRAZOLE 40 MG TABLET PO SCH (21:00)
[2019-07-07] MEDS ORDERED: ASPIRIN 81 MG PO SCH (21:00)
[2019-07-07] MEDS ORDERED: ATORVASTATIN 80 MG TAB PO SCH (21:00)
[2019-07-07] MEDS ORDERED: TAMSULOSIN 0.4 MG CAP.ER.24H PO SCH (21:00)
[2019-07-07] MEDS ORDERED: DULoxetine HCL 60 MG CAPSULE.DR PO SCH (21:00)
[2019-07-07] MEDS ORDERED: traZODone HCL 50 MG TAB PO SCH (21:00)
[2019-07-07] MEDS ORDERED: GLIMEPIRIDE 1 MG TAB PO SCH (21:00)
[2019-07-07] MEDS ORDERED: LISINOPRIL 20 MG TAB PO SCH (21:00)
[2019-07-08 00:21] VITALS: RESP 18
[2019-07-08] MEDS: SODIUM CHLORIDE 0.9% 1,000 ML IV SCH (01:31)
[2019-07-08] MEDS: ACETAMINOPHEN TAB 500 MG TAB PO PRN (04:16)
[2019-07-08 06:15] LABS: Anisocytosis Slight; Basophils % (A) 1 %; Eosinophils # (A) 0.5 k/uL (0-0.7); Eosinophils % (A) 9 %; HCT 35.4 % (39.0-53.0); HGB 11.5 gm/dL (13.0-17.5); Hypochromasia Slight; Lymphocytes # (A) 1.9 k/uL (1.0-4.8); Lymphocytes % (A) 32 %; MCH 26.9 pg (25.0-35.0); MCHC 32.4 g/dL (31.0-37.0); Mean Platelet Volume 7.6; Monocytes # (A) 0.3 k/uL (0-1.0); Monocytes % (A) 5 %; Neutrophils # (A) 3.1 k/uL (1.3-7.7); Neutrophils % (A) 52 %; Platelet Count 247 k/uL (150-450); RBC 4.26 m/uL (4.30-5.90); RDW 17.7 % (11.5-15.5)
[2019-07-08 06:22] LABS: Prothrombin Time 57.5 sec (9.0-12.0)
[2019-07-08 06:34] LABS: INR 5.9 (<1.2)
[2019-07-08 06:51] LABS: Glucose,Whole Blood 87 mg/dL (75-99)
[2019-07-08 06:59] LABS: Calcium 9.2 mg/dL (8.4-10.2); Magnesium 1.6 mg/dL (1.6-2.3); Potassium 4.3 mmol/L (3.5-5.1)
[2019-07-08 08:19] VITALS: BP 111/68; PULSE 68; TEMP 97.6
[2019-07-08] MEDS: HEPARIN SODIUM,PORCINE 5,000 UNIT/ML 1 ML VIAL SQ SCH (08:44)
[2019-07-08] MEDS ORDERED: NICOTINE 14MG/24HR PATCH TRANSDERM SCH (09:00)
[2019-07-08 11:50] LABS: Glucose,Whole Blood 96 mg/dL (75-99)
--- NOTE | 2019-07-08 11:52 | ECHOF ---
Referral Reason:per physician order MEASUREMENTS -------- HEIGHT: 177.8 cm WEIGHT: 124.7 kg BP: 110/70 RVIDd: 3.3 cm (< 3.3) IVSd: 1.4 cm (0.6 - 1.1) LVIDd: 4.2 cm (3.9 - 5.3) LVPWd: 1.5 cm (0.6 - 1.1) IVSs: 1.7 cm LVIDs: 3.3 cm LVPWs: 1.6 cm LA Diam: 3.6 cm (2.7 - 3.8) LAESV Index (A-L): 22.64 ml/m Ao Diam: 3.6 cm (2.0 - 3.7) AV Cusp: 2.1 cm (1.5 - 2.6) MV EXCURSION: 17.007 mm (> 18.000) MV EF SLOPE: 116 mm/s (70 - 150) EPSS: 0.5 cm MV E Adarsh: 0.95 m/s MV DecT: 230 ms MV A Adarsh: 0.94 m/s MV E/A Ratio: 1.01 AV maxP.13 mmHg AV meanP.71 mmHg RAP: 5.00 mmHg RVSP: 20.05 mmHg FINDINGS -------- Sinus rhythm. This was a technically adequate study. The left ventricular size is normal. There is moderate concentric left ventricular hypertrophy. O verall left ventricular systolic function is normal with, an EF between 60 - 65 %. The right ventricle is mildly enlarged. Normal LA size by volume 22+/-6 ml/m2. The right atrium is normal in size. Interatrial and interventricular septum intact. The aortic valve is trileaflet and appears structurally normal. The mitral valve is normal. Trace tricuspid regurgitation present. Right ventricular systolic pressure is normal at < 35 mmHg. There is no pulmonic regurgitation present. The aortic root size is normal. Normal inferior vena cava with normal inspiratory collapse consistent with estimated right atrial pre ssure of 5 mmHg. There is no pericardial effusion. CONCLUSIONS -------- 1. Sinus rhythm. 2. This was a technically adequate study. 3. The left ventricular size is normal. 4. There is moderate concentric left ventricular hypertrophy. 5. Overall left ventricular systolic function is normal with, an EF between 60 - 65 %. 6. The right ventricle is mildly enlarged. 7. Normal LA size by volume 22+/-6 ml/m2. 8. The right atrium is normal in size. 9. Interatrial and interventricular septum intact. 10. The aortic valve is trileaflet and appears structurally normal. 11. The mitral valve is normal. 12. Trace tricuspid regurgitation present. 13. Right ventricular systolic pressure is normal at < 35 mmHg. 14. There is no pulmonic regurgitation present. 15. The aortic root size is normal. 16. Normal inferior vena cava with normal inspiratory collapse consistent with estimated right atrial pressure of 5 mmHg. 17. There is no pericardial effusion. FORMAL WEAR RENTAL CLERK: Diana Urena RDCS
--- NOTE | 2019-07-08 13:33 | P.DS ---
Providers Date of admission: 07/07/19 10:46 Attending physician: Mara Rayo Primary care [facility] Course: 59-year-old male was admitted with nausea vomiting appears to be secondary to viral gastroenteritis. Patient's symptoms resolved patient was also treated for acute renal failure secondary to nausea vomiting his creatinine improved close to his baseline. Patient will be discharged today to follow with primary care patient in 3-7 days. Patient blood pressures low-normal will cut down the asymmetric inhibitor dose and he can be restarted back on his MELECIO inhibitor versus renal failure improved and the patient is supratherapeutic on Coumadin with INR of 5.9. Patient's Coumadin dose will be decreased to 6 mg and patient will will hold his Coumadin today we'll get his INR checked tomorrow in PCPs office and depending on INR he can resume at a low dose of 6 mg from tomorrow depending on INR. Patient on Coumadin for her DVT PHYSICAL EXAMINATION: GENERAL: The patient is alert and oriented x3, not in any acute distress. Well developed, well nourished. HEENT: Pupils are round and equally reacting to light. EOMI. No scleral icterus. No conjunctival pallor. Normocephalic, atraumatic. No pharyngeal erythema. No thyromegaly. CARDIOVASCULAR: S1 and S2 present. No murmurs, rubs, or gallops. PULMONARY: Chest is clear to auscultation, no wheezing or crackles. ABDOMEN: Soft, nontender, nondistended, normoactive bowel sounds. No palpable organomegaly. MUSCULOSKELETAL: No joint swelling or deformity. EXTREMITIES: No cyanosis, clubbing, or pedal edema. NEUROLOGICAL: Gross neurological examination did not reveal any focal deficits. SKIN: No rashes. The rest of the chronic medical problems hospital physician course please refer to H&P from Dr. Rayo from yesterday Patient Condition at Discharge: Stable Plan - Discharge Summary Discharge Rx Participant: No New Discharge Prescriptions: Continue metFORMIN HCL 2,000 mg PO HS Aspirin 81 mg PO HS DULoxetine HCL [Cymbalta] 60 mg PO HS busPIRone HCL 30 mg PO HS Glimepiride [Amaryl] 1 mg PO HS Omeprazole [PriLOSEC] 40 mg PO HS traZODone HCL 150 mg PO HS Tamsulosin [Flomax] 0.4 mg PO HS Atorvastatin [Lipitor] 80 mg PO HS Changed Benazepril HCl 10 mg PO HS #0 Warfarin Sodium [Coumadin] 6 mg PO DAILY #1 Discontinued Warfarin Sodium [Coumadin] 12 mg PO TUFR Discharge Medication List Aspirin 81 mg PO HS 10/08/17 [History] DULoxetine HCL [Cymbalta] 60 mg PO HS 10/08/17 [History] metFORMIN HCL 2,000 mg PO HS 10/08/17 [History] Glimepiride [Amaryl] 1 mg PO HS 11/20/18 [History] Omeprazole [PriLOSEC] 40 mg PO HS 11/20/18 [History] busPIRone HCL 30 mg PO HS 11/20/18 [History] traZODone HCL 150 mg PO HS 11/20/18 [History] Atorvastatin [Lipitor] 80 mg PO HS 07/07/19 [History] Tamsulosin [Flomax] 0.4 mg PO HS 07/07/19 [History] Benazepril HCl 10 mg PO HS #0 07/08/19 [Rx] Warfarin Sodium [Coumadin] 6 mg PO DAILY #1 07/08/19 [Rx] Follow up Appointment(s)/Referral(s): Izaiah Bond DO [Primary Care Provider] - 3 Days Patient Instructions/Handouts: Acute Kidney Injury (GEN) Discharge Disposition: HOME SELF-CARE
== END 2019-07-08 13:28 | disposition home or self-care (01) ==
LOC: EC 07:56 → 6NMEDSUR 10:46 → 3SCARD 12:53 → 1SOBS 17:38
PROVIDERS: ADMIT Hospitalist; ATTEND Hospitalist
DX: R11.2 Nausea with vomiting, unspecified (principal); E86.0 Dehydration; N17.9 Acute kidney failure, unspecified; E11.649 Type 2 diabetes mellitus with hypoglycemia without coma; E66.9 Obesity, unspecified; E78.5 Hyperlipidemia, unspecified; E83.42 Hypomagnesemia; F17.200 Nicotine dependence, unspecified, uncomplicated; I10 Essential (primary) hypertension; I25.2 Old myocardial infarction; K43.9 Ventral hernia without obstruction or gangrene; N20.1 Calculus of ureter; R79.1 Abnormal coagulation profile; T45.515A Adverse effect of anticoagulants, initial encounter; Z68.39 Body mass index [BMI] 39.0-39.9, adult; Z79.01 Long term (current) use of anticoagulants; Z79.82 Long term (current) use of aspirin; Z79.84 Long term (current) use of oral hypoglycemic drugs; Z79.899 Other long term (current) drug therapy; Z82.49 Family history of ischemic heart disease and other diseases of the circulatory system; Z83.3 Family history of diabetes mellitus; Z86.718 Personal history of other venous thrombosis and embolism; Z87.442 Personal history of urinary calculi; Z90.49 Acquired absence of other specified parts of digestive tract; Z96.649 Presence of unspecified artificial hip joint; G47.33 Obstructive sleep apnea (adult) (pediatric); Z99.89 Dependence on other enabling machines and devices; Z96.643 Presence of artificial hip joint, bilateral; Z96.651 Presence of right artificial knee joint; I82.402 Acute embolism and thrombosis of unspecified deep veins of left lower extremity; N20.0 Calculus of kidney
CPT/HCPCS: 96361 ×2; 96366; 96372 ×2; 96365; 96375; 99285; 36415; 93005; 93306; 80053; 80048; 82550; 83605; 83690; 83735 ×2; 84443; 84484; 85025 ×2; 85610 ×2; 85730; 81001; 74177; G0378 ×2; S4990; J1644 ×2; J2405; J3475; Q9967

== ENCOUNTER → 2019-08-20 | Outpatient (CLI) | payer MEDICARE ==
--- NOTE | 2019-08-20 10:00 | XR ---
EXAMINATION TYPE: XR KUB DATE OF EXAM: 08/20/2019 HISTORY: Pain Comparison: None. Single KUB is submitted for interpretation. Findings: Right renal calculi: None Visualized. Right ureteral calculi: None Visualized. Left renal calculi: None Visualized. Left ureteral calculi: None Visualized. Pelvic calcifications: None Visualized. Bowel gas pattern is unremarkable. No free air. No mass effects. IMPRESSION: 1. No distinct renal or ureteral calculi identified.
== END | disposition home or self-care (01) ==
LOC: RADXRMAIN 09:09
PROVIDERS: ATTEND Urology
DX: N20.0 Calculus of kidney (principal)
CPT/HCPCS: 74018

== ENCOUNTER → 2019-08-25 | Outpatient (CLI) | payer MEDICARE ==
--- NOTE | 2019-08-25 11:42 | XR ---
EXAMINATION TYPE: XR KUB DATE OF EXAM: 08/25/2019 HISTORY: Pain Comparison: 08/20/2019 Single KUB is submitted for interpretation. Findings: Right renal calculi: None Visualized. Right ureteral calculi: None Visualized. Left renal calculi: None Visualized. Left ureteral calculi: None Visualized. Pelvic calcifications: Multiple pelvic calcifications may reflect phleboliths. Correlate clinically. Bowel gas pattern is unremarkable. No free air. No mass effects. IMPRESSION: 1. No definite renal calculi seen at this time.
== END | disposition home or self-care (01) ==
LOC: RADXRMAIN 11:20
PROVIDERS: ATTEND Urology
DX: N20.2 Calculus of kidney with calculus of ureter (principal)
CPT/HCPCS: 74018

== ENCOUNTER 2019-10-04 06:23 | Day surgery (SDC) | payer MEDICARE ==
[2019-09-30 10:52] VITALS: BMI 38.7
[~2019-10-04 06:23] MED LIST changes: +ALPRAZolam 0.5 MG TAB PO PRN; -ZOLPIDEM 5 MG TAB PO PRN
[2019-10-04] MEDS ORDERED: ASPIRIN 81 MG ONE (06:49)
[2019-10-04] MEDS ORDERED: SODIUM CHLORIDE 0.9% 1,000 ML IV ONE (07:00)
[2019-10-04 07:02] LABS: Glucose,Whole Blood 117 mg/dL (75-99)
[2019-10-04 07:10] LABS: Anisocytosis Slight; Basophils # (A) 0.1 k/uL (0-0.2); Basophils % (A) 1 %; Eosinophils # (A) 0.2 k/uL (0-0.7); Eosinophils % (A) 3 %; HCT 43.9 % (39.0-53.0); HGB 13.9 gm/dL (13.0-17.5); Lymphocytes # (A) 1.7 k/uL (1.0-4.8); Lymphocytes % (A) 21 %; MCH 27.1 pg (25.0-35.0); MCHC 31.6 g/dL (31.0-37.0); MCV 85.7 fL (80.0-100.0); Mean Platelet Volume 6.7; Monocytes # (A) 0.4 k/uL (0-1.0); Monocytes % (A) 5 %; Neutrophils # (A) 5.3 k/uL (1.3-7.7); Neutrophils % (A) 68 %; Platelet Count 302 k/uL (150-450); RBC 5.12 m/uL (4.30-5.90); RDW 16.4 % (11.5-15.5); WBC 7.9 k/uL (3.8-10.6)
[2019-10-04 07:11] VITALS: TEMP 98.3
[2019-10-04 07:18] LABS: INR 2.4 (<1.2); Prothrombin Time 23.3 sec (9.0-12.0)
[2019-10-04 07:23] LABS: African American GFR (CKD) >90 (>60 ml/min/1.73 sqM); Anion Gap 10 mmol/L; Blood Urea Nitrogen 14 mg/dL (9-20); Calcium 10.7 mg/dL (8.4-10.2); Carbon Dioxide 20 mmol/L (22-30); Chloride 108 mmol/L (98-107); Glucose 123 mg/dL (74-99); Non-African American GFR(CKD) >90 (>60 ml/min/1.73 sqM); Potassium 4.2 mmol/L (3.5-5.1); Sodium 138 mmol/L (137-145)
[2019-10-04] MEDS ORDERED: MIDAZOLAM 2 MG/2 ML VIAL IVP ONE (07:53)
[2019-10-04] MEDS ORDERED: LIDOCAINE 1% INJ 10MG/ML (20 ML MDV) SQ ONE (07:56)
[2019-10-04] MEDS ORDERED: IOPAMIDOL-250 100ML BTL INTRAARTER ONE (08:16)
[2019-10-04] MEDS ORDERED: SODIUM CHLORIDE 0.9% 1,000 ML IV SCH (08:30)
--- NOTE | 2019-10-04 08:30 | P.PCN ---
Date of Procedure: 10/04/19 Operative Findings: AN ABDOMINAL AORTOGRAM AND BILATERAL LOWER EXTREMITIES RUNOFF PERFORMING PHYSICIAN: Arias Pandey MD PROCEDURE PERFORMED: 1. An abdominal aortogram 2. Bilateral lower extremities runoff 3. Selective left SFA angiogram INDICATION: This is a very pleasant 59-year-old gentleman with history of peripheral arterial disease and prior angioplasty of the left popliteal was experiencing l eft leg intermittent claudication interfering with his daily activities. Unfortunately he continues to smoke. He was brought today to undergo an aortogram with runoff COMPLICATION: None LEVEL OF SEDATION: Moderate was sedation length of 27 minutes APPROACH: Right common femoral artery PROCEDURE DESCRIPTION: After obtaining informed consent and explaining the procedure benefits, risks, and complications, the patient was brought to the cardiac dental laboratory supervisor. The right groin was prepped and draped in sterile fashion. The right common femoral artery was cannulated using micropuncture technique, under ultrasound guidance. A micropuncture wire was advanced, and the micropuncture sheath was advanced over the wire, then the micropuncture sheath was exchanged over an 0.35 wire into a 5-Algerian sheath dilator assembly then the wire and dilator were removed and sheath was flushed. We did an abdominal aortogram and bilateral lower extremities runoff using 5- Algerian pigtail catheter using a power injection. The catheter was initially placed at the level of the renal arteries, and it was pulled into above the bifurcation of the aorta into right and left common iliac arteries. Subsequently I did selective left SFA angiogram where the catheter was placed in the distal left SFA. The procedure was completed and there was no complications. SELECTIVE PERIPHERAL ANGIOGRAM: The abdominal aorta: Is angiographically normal. The common iliac arteries: Are angiographically normal. The external iliac arteries: Are angiographically normal The internal iliac arteries: And patent. The common femoral arteries: Are angiographically normal. Superficial femoral arteries: Are angiographically normal. Popliteal arteries: The right popliteal appeared to be patent. The left popliteal is occluded and reconstitutes acute at the level of the posterior tibial artery. Below the knees: The arteries below the knee where not well-visualized. On the right side there are probably 3 vessels run off On the left side there is only 1 vessel runoff with posterior TPL which goes all the way to the foot level. CONCLUSION: Occluded left popliteal reconstitutes acute at the level of the posterior tibial which is only vessel run off. POSTPROCEDURE MANAGEMENT: JEWEL HOLE CORNERER of the left popliteal and left posterior tibial
[2019-10-04 08:36] LABS: INR 2.6 (<1.2); Partial Thromboplastin Time 42.5 sec (22.0-30.0)
--- NOTE | 2019-10-04 08:56 | IR ---
Fluoroscopy HISTORY: Pain in leg 4.9 minutes fluoroscopy time supplied to the referring clinician. 179 intraoperative C-arm images do cument the procedure. See dictated report from cardiology.
[2019-10-04 13:19] VITALS: BP 118/72; PULSE 76; RESP 16
== END 2019-10-04 13:19 | disposition home or self-care (01) ==
LOC: CATHCVL 06:23
PROVIDERS: ATTEND Internal Medicine Interventional Cardiology
DX: E13.51 Other specified diabetes mellitus with diabetic peripheral angiopathy without gangrene (principal); I70.212 Atherosclerosis of native arteries of extremities with intermittent claudication, left leg; Z79.84 Long term (current) use of oral hypoglycemic drugs; I10 Essential (primary) hypertension; E78.5 Hyperlipidemia, unspecified; E78.00 Pure hypercholesterolemia, unspecified; E66.9 Obesity, unspecified; Z68.37 Body mass index [BMI] 37.0-37.9, adult; F17.210 Nicotine dependence, cigarettes, uncomplicated; Z79.01 Long term (current) use of anticoagulants; Z79.899 Other long term (current) drug therapy
CPT/HCPCS: 36247; 75625; 75716; 80048; 85025; 85610; 85730; C1760; C1769 ×5; C1894 ×2; J2250; J2001; Q9966

== ENCOUNTER → 2020-01-10 | Outpatient (CLI) | payer MEDICARE ==
--- NOTE | 2020-01-10 13:55 | US ---
EXAMINATION TYPE: US thyroid st tissue head/neck DATE OF EXAM: 01/10/2020 COMPARISON: NONE CLINICAL HISTORY: E21.0 PRIMARY HYPERPARATHYROIDISM. GLAND SIZE: Right Lobe: 3.8 x 1.7 x 2.1 cm Overall Parenchyma: homogenous Left Lobe: 4.0 x 1.6 x 1.3 cm Overall Parenchyma: homogeneous Isthmus Thickness: 0.4 cm NODULES RIGHT: # of nodules measured on right: 1 1. 0.5 X 0.8 x 0.5 cm hypoechoic solid nodule at the lower pole with well-defined margins. This no dule is wider than tall and shows no intranodular vascularity. Thyroid nodule vs. intrathyroidal para thyroid gland. Prior size: x x cm LEFT: # of nodules measured on left: 0 ISTHMUS: # of nodules measured in the isthmus: 0 Bilateral neck scanned: no evidence of lymphadenopathy. Homogeneous slightly small thyroid with 8 mm hypoechoic lower pole right thyroid nodule slight certified physician's assistant ior medial aspect. IMPRESSION: Homogeneous slightly small thyroid without greater than 1 cm nodule. No suspicious extra thyroid nodules to suggest focal parathyroid adenoma.
== END | disposition home or self-care (01) ==
LOC: RADUSWWP 12:42
PROVIDERS: ATTEND Surgery
DX: E21.0 Primary hyperparathyroidism (principal)
CPT/HCPCS: 76536

== ENCOUNTER → 2020-01-11 | Outpatient (CLI) | payer MEDICARE ==
[2020-01-11 09:28] LABS: Calcium 10.9 mg/dL (8.4-10.2); Potassium 4.6 mmol/L (3.5-5.1)
--- NOTE | 2020-01-11 11:07 | CT ---
EXAMINATION TYPE: CT abdomen pelvis w con DATE OF EXAM: 01/11/2020 COMPARISON: 07/07/2019 HISTORY: Generalized pain with history of prior hernia repair. CT DLP: 1992 mGycm CONTRAST: CT scan of the abdomen and pelvis is performed with Oral Contrast and with IV Contrast, patient injec catalino with 100 mL of Isovue 300. FINDINGS: LUNG BASES-: No visible nodule. No infiltrate. LIVER/GB: No calcified gallstones. No space occupying hepatic lesion. Biliary tree is of normal ca liber. PANCREAS: No inflammation. No distinct mass. SPLEEN: No splenic enlargement. No lesion seen. ADRENALS: 1.4 cm left adrenal nodule is unchanged. No thickening. KIDNEYS/BLADDER: No hydronephrosis. Nonobstructing 4 mm calculus lower pole right kidney. No distinc t renal mass. Urinary bladder grossly unremarkable. BOWEL: Normal appendix. Normal bowel caliber. No inflammation. GENITAL ORGANS: No gross abnormality. LYMPH NODES: No greater than 1cm abdominal or pelvic lymph nodes are appreciated. AORTA: No significant abnormality. OSSEOUS STRUCTURES: No significant abnormality is seen. OTHER: Midline ventral hernia noted to the left of midline above the level of the umbilicus is redemo nstrated. Hernia contains a segment of the large bowel. Hernia opening is 5.4 cm versus 4.3 cm previo usly. No evidence for strangulation. Fat-containing low anterior abdominal wall hernia below the leve l of the umbilicus to the right of midline. No additional hernias seen at this time. IMPRESSION: 1. Ventral hernias as discussed above without evidence for strangulation. No obstructive changes seen .
== END | disposition home or self-care (01) ==
LOC: RADCTMAIN 08:18
PROVIDERS: ATTEND Surgery
DX: K43.9 Ventral hernia without obstruction or gangrene (principal); R10.30 Lower abdominal pain, unspecified
CPT/HCPCS: 80048; 74177; 36415; Q9967

== ENCOUNTER 2020-04-30 20:43 | Emergency (ER) | payer MEDICARE ==
--- NOTE | 2020-04-30 21:02 | ED ---
General Adult HPI - General Chief complaint: Abdominal Pain Stated complaint: Complications post SX Time Seen by Provider: 04/30/20 21:01 Source: patient, family Mode of arrival: wheelchair Limitations: no limitations - History of Present Illness Initial comments: Patient presents the ED with his daughter for evaluation. Patient states that he had hernia surgery performed by Dr. Dick at [facility] in [place] on 04/10/20. Patient's daughter states that the patient had his sutures removed 3 days ago, and she states that he has now developed "leakage of fluid" from his midline abdominal surgical wound. Patient also admits to having generalized a bdominal pain ever since surgery. Patient also states that he has felt warm and cold at times, but he denies ever checking his temperature. Patient's daughter states that the patient did take a dose of Tylenol a little over 3 hours ago. Patient states that he had a single loose bowel movement today. Patient denies headache, focal neuro deficit, chest pain, dyspnea, cough or cold symptoms, dizz iness, back pain, nausea or vomiting, bloody or melanotic stool, dysuria/hematuria/urinary frequency/urinary symptoms, or any other symptoms or complaints. Patient states that his KANWAL drain drainage has decreased over time. Patient's daughter states the patient has a history of anemia, and she states that his hemoglobin level was 6.5 prior to surgery. - Related Data Home Medications Medication Instructions Recorded Confirmed DULoxetine HCL [Cymbalta] 60 mg PO HS 10/08/17 04/30/20 metFORMIN HCL 2,000 mg PO HS 10/08/17 04/30/20 Glimepiride [Amaryl] 1 mg PO HS 11/20/18 04/30/20 Omeprazole [PriLOSEC] 40 mg PO HS 11/20/18 04/30/20 traZODone HCL 75 mg PO HS 11/20/18 04/30/20 Atorvastatin [Lipitor] 80 mg PO HS 07/07/19 04/30/20 Albuterol Sulfate [Proair Hfa] 2 puff INHALATION RT-Q6H PRN 04/30/20 04/30/20 Beclomethasone Dip 80 Mcg/Puff 2 puff INHALATION RT-BID 04/30/20 04/30/20 [Qvar 80 mcg] Benazepril HCl 20 mg PO HS 04/30/20 04/30/20 Lactulose [Constulose] 10 gm PO HS 04/30/20 04/30/20 Methocarbamol [Robaxin-750] 750 mg PO QID 04/30/20 04/30/20 Montelukast [Singulair] 10 mg PO HS 04/30/20 04/30/20 Triamterene-Hctz 37.5-25Mg 1 cap PO HS 04/30/20 04/30/20 [Dyazide 37.5-25 Capsule] Vitamin D3/Calcium(Unknown Dose) 3 tab PO HS 04/30/20 04/30/20 Warfarin Sodium 12 mg PO MOFR 04/30/20 04/30/20 Warfarin Sodium [Jantoven] 9 mg PO SUTUWETHSA 04/30/20 04/30/20 oxyCODONE HCL [OxyIR] 5 mg PO Q6H PRN 04/30/20 04/30/20 Allergies Allergy/AdvReac Type Severity Reaction Status Date / Time No Known Allergies Allergy Verified 04/30/20 23:44 Review of Systems ROS Statement: Those systems with pertinent positive or pertinent negative responses have been documented in the HPI. ROS Other: All systems not noted in ROS Statement are negative. Past Medical History Past Medical History: Diabetes Mellitus, Deep Vein Thrombosis (DVT), Hyperlipidemia, Hypertension, Sleep Apnea/CPAP/BIPAP Additional Past Medical History / Comment(s): Open incisional area from umbilical hernia sx. NEEDS MORE HERNIA REPAIRS. STATES AWAITING TWYLA HIP REPLACEMENT. STATES CURRENT DVT LEFT LEG, HX OF KIDNEY STONES History of Any Multi-Drug Resistant Organisms: None Reported Past Surgical History: Appendectomy, Hernia Repair, Joint Replacement Additional Past Surgical History / Comment(s): APPENDECTOMY? Right knee REPLACED, hernia x2, ABD AORTOGRAM 02/24/17. Hernia repair Mar,. 3/4 Parathyroid removal surgery 01/18/2020 Past Anesthesia/Blood Transfusion Reactions: No Reported Reaction Past Psychological History: Anxiety, Depression Smoking Status: Current every day smoker Past Alcohol Use History: None Reported Past Drug Use History: Marijuana - Past Family History Mother History Unknown: Yes Family Medical History: Dementia, Diabetes Mellitus, Hyperlipidemia, Renal Di sease Additional Family Medical History / Comment(s): dialysis Father Family Medical History: Coronary Artery Disease (CAD), Diabetes Mellitus General Exam Limitations: no limitations General appearance: alert, in no apparent distress Head exam: Present: atraumatic, normocephalic Eye exam: Present: normal appearance, EOMI ENT exam: Present: mucous membranes moist Neck exam: Present: other (Trachea is in midline) Respiratory exam: Present: normal lung sounds bilaterally. Absent: respiratory distress, wheezes, rales, rhonchi Cardiovascular Exam: Present: regular rate, normal rhythm, normal heart sounds, other (Normal radial pulses bilaterally) GI/Abdominal exam: Present: soft, diminished bowel sounds, other (Obese abdomen; mild generalized tenderness; central portion of midline abdominal surgical wound is noted to have minimal serous drainage; right lower quadrant KANWAL drain is in place with serosanguineous fluid noted; no evidence of surgical wound infection). Absent: guarding, rebound Extremities exam: Absent: tenderness, pedal edema, calf tenderness Neurological exam: Present: alert, oriented X3. Absent: motor sensory deficit Psychiatric exam: Present: normal affect, normal mood Skin exam: Present: warm, dry, normal color Course Vital Signs 04/30/20 04/30/20 04/30/20 20:51 22:16 23:10 Temperature 99.6 F 98.9 F Pulse Rate 103 H 86 63 Respiratory 19 16 18 Rate Blood Pressure 103/57 112/64 O2 Sat by Pulse 99 Oximetry - Reevaluation(s) Reevaluation #1: 04/30/20 23:45 Patient states that his pain has improved with ED treatment, and he denies development of any new pain or symptoms while in the ED. Patient and daughter are aware of the patient's test results, and they both feel comfortable with the patient going home at this time. They were counseled about abdominal pain and seromas. They were clearly explained return and follow-up instructions. They were instructed to have the patient follow up closely with his surgeon at [facility] in [place], and to call tomorrow morning for an appointment. They feel comfortable with this plan. Medical Decision Making - Medical Decision Making Patient is afebrile and without leukocytosis. Patient's abdomen is soft and without any surgical signs on examination. I suspect that the drainage noted coming from the patient's midline surgical wound is likely secondary to seroma formation and drainage, as suggested by the patient's CT abdomen/pelvis. I do n ot suspect surgical wound infection or any other infectious process. Will discharge patient home with his daughter at this time. Clear return and follow- up instructions were given. Patient was instructed to follow up closely with his surgeon at [facility] in [place]. - Lab Data Result diagrams: 04/30/20 21:42 04/30/20 21:42 Lab Results 04/30/20 04/30/20 04/30/20 Range/Units 21:42 21:42 21:42 WBC 5.5 (3.8-10.6) k/uL RBC 4.06 L (4.30-5.90) m/uL Hgb 8.5 L (13.0-17.5) gm/dL Hct 29.6 L (39.0-53.0) % MCV 73.0 L (80.0-100.0) fL MCH 21.1 L (25.0-35.0) pg MCHC 28.9 L (31.0-37.0) g/dL RDW 25.4 H (11.5-15.5) % Plt Count 608 H (150-450) k/uL Neutrophils % 68 % Lymphocytes % 17 % Monocytes % 6 % Eosinophils % 6 % Basophils % 1 % Neutrophils # 3.8 (1.3-7.7) k/uL Lymphocytes # 1.0 (1.0-4.8) k/uL Monocytes # 0.3 (0-1.0) k/uL Eosinophils # 0.3 (0-0.7) k/uL Basophils # 0.1 (0-0.2) k/uL Hypochromasia Marked Poikilocytosis Moderate Anisocytosis Marked Microcytosis Marked Sodium 136 L (137-145) mmol/L Potassium 4.5 (3.5-5.1) mmol/L Chloride 105 (98-107) mmol/L Carbon Dioxide 23 (22-30) mmol/L Anion Gap 8 mmol/L BUN 15 (9-20) mg/dL Creatinine 1.17 (0.66-1.25) mg/dL Est GFR (CKD-EPI)AfAm 78 (>60 ml/min/1.73 sqM) Est GFR (CKD-EPI)NonAf 67 (>60 ml/min/1.73 sqM) Glucose 136 H (74-99) mg/dL Plasma Lactic Acid Jose (0.7-2.0) mmol/L Calcium 8.4 (8.4-10.2) mg/dL Total Bilirubin 0.3 (0.2-1.3) mg/dL AST 28 (17-59) U/L ALT 42 (4-49) U/L Alkaline Phosphatase 93 (38-126) U/L Total Protein 5.7 L (6.3-8.2) g/dL Albumin 2.9 L (3.5-5.0) g/dL Amylase 36 (30-110) U/L Lipase 33 (23-300) U/L Urine Color Yellow Urine Appearance Clear (Clear) Urine pH 6.0 (5.0-8.0) Ur Specific [place] 1.017 (1.001-1.035) Urine Protein Negative (Negative) Urine Glucose (UA) Negative (Negative) Urine Ketones Negative (Negative) Urine Blood Negative (Negative) Urine Nitrite Negative (Negative) Urine Bilirubin Negative (Negative) Urine Urobilinogen 2.0 (<2.0) mg/dL Ur Leukocyte Esterase Negative (Negative) 04/30/20 Range/Units 21:42 WBC (3.8-10.6) k/uL RBC (4.30-5.90) m/uL Hgb (13.0-17.5) gm/dL Hct (39.0-53.0) % MCV (80.0-100.0) fL MCH (25.0-35.0) pg MCHC (31.0-37.0) g/dL RDW (11.5-15.5) % Plt Count (150-450) k/uL Neutrophils % % Lymphocytes % % Monocytes % % Eosinophils % % Basophils % % Neutrophils # (1.3-7.7) k/uL Lymphocytes # (1.0-4.8) k/uL Monocytes # (0-1.0) k/uL Eosinophils # (0-0.7) k/uL Basophils # (0-0.2) k/uL Hypochromasia Poikilocytosis Anisocytosis Microcytosis Sodium (137-145) mmol/L Potassium (3.5-5.1) mmol/L Chloride (98-107) mmol/L Carbon Dioxide (22-30) mmol/L Anion Gap mmol/L BUN (9-20) mg/dL Creatinine (0.66-1.25) mg/dL Est GFR (CKD-EPI)AfAm (>60 ml/min/1.73 sqM) Est GFR (CKD-EPI)NonAf (>60 ml/min/1.73 sqM) Glucose (74-99) mg/dL Plasma Lactic Acid Jose 1.9 (0.7-2.0) mmol/L Calcium (8.4-10.2) mg/dL Total Bilirubin (0.2-1.3) mg/dL AST (17-59) U/L ALT (4-49) U/L Alkaline Phosphatase (38-126) U/L Total Protein (6.3-8.2) g/dL Albumin (3.5-5.0) g/dL Amylase (30-110) U/L Lipase (23-300) U/L Urine Color Urine Appearance (Clear) Urine pH (5.0-8.0) Ur Specific [place] (1.001-1.035) Urine Protein (Negative) Urine Glucose (UA) (Negative) Urine Ketones (Negative) Urine Blood (Negative) Urine Nitrite (Negative) Urine Bilirubin (Negative) Urine Urobilinogen (<2.0) mg/dL Ur Leukocyte Esterase (Negative) - Radiology Data CT abd/pelvis with IV contrast: postsurgical changes on the anterior abdominal wall with reduction of the ventral hernia compared to old exam, there is evidence of edema in the anterior abdominal wall musculature, there is extraperitoneal fluid collection along the inside of the anterior abdominal wall consistent with seroma or hematoma, nonobstructing right renal calculus Disposition Clinical Impression: Wound drainage, Postoperative abdominal pain, Seroma Disposition: HOME SELF-CARE Condition: Stable Instructions (If sedation given, give patient instructions): Abdominal Pain (ED), Seroma (DC) Additional Instructions: Return to the ER immediately should you develop new or worsening pain, a fever, vomiting, shortness of breath, feeling dizzy or faint, or new or worsening symptoms. Follow up closely with your primary care provider, as well as your surgeon at [facility] in [place]. Call tomorrow morning for an appointment. Is patient prescribed a controlled substance at d/c from ED?: No Referrals: Izaiah Bond DO [Primary Care Provider] - 1-2 days Time of Disposition: 23:51
[2020-04-30] MEDS ORDERED: SODIUM CHLORIDE 0.9% 500 ML 500 ML IV ONE (21:36)
[2020-04-30] MEDS ORDERED: MORPHINE SULFATE 4 MG/ML SYRINGE IVP STA (21:36)
[2020-04-30 21:56] LABS: Anisocytosis Marked; Basophils # (A) 0.1 k/uL (0-0.2); Basophils % (A) 1 %; Eosinophils # (A) 0.3 k/uL (0-0.7); Eosinophils % (A) 6 %; HCT 29.6 % (39.0-53.0); Hypochromasia Marked; Lymphocytes % (A) 17 %; MCH 21.1 pg (25.0-35.0); MCHC 28.9 g/dL (31.0-37.0); Microcytosis Marked; Monocytes # (A) 0.3 k/uL (0-1.0); Monocytes % (A) 6 %; Neutrophils # (A) 3.8 k/uL (1.3-7.7); Neutrophils % (A) 68 %; Platelet Count 608 k/uL (150-450); Poikilocytosis Moderate; RBC 4.06 m/uL (4.30-5.90); WBC 5.5 k/uL (3.8-10.6)
[2020-04-30 22:04] LABS: HGB 8.5 gm/dL (13.0-17.5); RDW 25.4 % (11.5-15.5)
[2020-04-30 22:11] LABS: Albumin 2.9 g/dL (3.5-5.0); Calcium 8.4 mg/dL (8.4-10.2); Potassium 4.5 mmol/L (3.5-5.1); Total Bilirubin 0.3 mg/dL (0.2-1.3); Total Protein 5.7 g/dL (6.3-8.2)
[2020-04-30] MEDS ORDERED: diphenhydrAMINE 50 MG/ML 1 ML VIAL IVP STA (22:18)
[2020-04-30 23:12] LABS: Appearance,Urine Clear (Clear); Bilirubin,Urine Negative (Negative); Blood,Urine Negative (Negative); Color,Urine Yellow; Glucose,Urine (UA) Negative (Negative); Ketones,Urine Negative (Negative); Leukocyte Esterase,Urine Negative (Negative); Nitrite,Urine Negative (Negative); Protein,Urine Negative (Negative); Specific Gravity,Urine 1.017 (1.001-1.035)
--- NOTE | 2020-04-30 23:38 | CT ---
EXAMINATION TYPE: CT abdomen pelvis w con DATE OF EXAM: 04/30/2020 COMPARISON: 01/11/2020 HISTORY: abdominal pain post-op hernia repair CT DLP: 2970.4 mGycm Automated exposure control for dose reduction was used. CONTRAST: Performed with IV Contrast, patient injected with 100 mL of Isovue 300. Lung bases are clear. There is no pleural effusion. Heart size is normal. There is no pericardial eff usion. Liver spleen stomach pancreas gallbladder appear normal. Bile ducts are not dilated. There is some fa t stranding in the anterior mid abdomen related to hernia surgery. There is a drainage catheter at th e surgery site in the subcutaneous tissues. There is some thickening of the anterior abdominal wall c onsistent with edema. There is small amount of fluid that is probably extraperitoneal along the anter ior abdominal wall. This measures up to 13 mm in thickness. There is 1.5 cm rounded low-density left adrenal mass suggestive of benign disease. Kidneys show sati sfactory contrast opacification. There is no hydronephrosis. There is 3 mm calculus lower pole right kidney. There is a slight left side delayed pyelogram. I see no definite ureteral calculus. Bladder d istends smoothly. There is no inguinal hernia. There is no free fluid in the pelvis. There is no mesenteric edema. There is no ascites or free air. There is no sign of a bowel obstructio n. Lumbar vertebra have normal alignment. There is no compression fracture. Posterior elements are intac t. The bony pelvis is intact. IMPRESSION: Postsurgical changes on the anterior abdominal wall with reduction of the ventral hernia compared to old exam. There is evidence of edema in the anterior abdominal wall musculature. There is extraperito azalea fluid collection along the inside of the anterior abdomen wall consistent with seroma or hematom a. Nonobstructing right renal calculus. Slight delayed left side pyelogram of uncertain significance. Le ft kidney slightly smaller than the right and this could reflect decreased renal function.
[2020-05-01 00:06] VITALS: BP 132/82; PULSE 68; RESP 16; TEMP 98.8
== END 2020-05-01 | disposition home or self-care (01) ==
LOC: EC 20:43
DX: G89.18 Other acute postprocedural pain (principal); R10.84 Generalized abdominal pain; K91.872 Postprocedural seroma of a digestive system organ or structure following a digestive system procedure; Y83.8 Other surgical procedures as the cause of abnormal reaction of the patient, or of later complication, without mention of misadventure at the time of the procedure; E11.9 Type 2 diabetes mellitus without complications; I10 Essential (primary) hypertension; E78.5 Hyperlipidemia, unspecified; F41.9 Anxiety disorder, unspecified; F32.9 Major depressive disorder, single episode, unspecified; G47.30 Sleep apnea, unspecified; F17.200 Nicotine dependence, unspecified, uncomplicated; Z79.01 Long term (current) use of anticoagulants; Z79.84 Long term (current) use of oral hypoglycemic drugs; Z79.51 Long term (current) use of inhaled steroids; Z79.899 Other long term (current) drug therapy; Z86.718 Personal history of other venous thrombosis and embolism; Z90.89 Acquired absence of other organs; Z96.643 Presence of artificial hip joint, bilateral; Z99.89 Dependence on other enabling machines and devices
CPT/HCPCS: 99284; 96374; 96375; 36415; 80053; 82150; 83605; 83690; 85025; 81003; 87040; 74177; J2270; J1200; Q9967

== ENCOUNTER 2020-09-29 12:40 | Inpatient (IN) | payer MEDICARE ==
[2020-09-29] MEDS ORDERED: PANTOPRAZOLE 40 MG/10 ML VIAL IVP ONE (13:18)
--- NOTE | 2020-09-29 13:20 | ED ---
General Adult HPI - General Chief complaint: Recheck/Abnormal Lab/Rx Stated complaint: Abd pain/low hemoglobin Time Seen by Provider: 09/29/20 12:53 Source: patient Mode of arrival: ambulatory Limitations: no limitations - History of Present Illness Initial comments: Dictation was produced using [employer] dictation software. please excuse any grammatical, word or spelling errors. This patient was cared for during a federal and state declared state of emergency secondary to Covid 19 Chief Complaint: 60-year-old male sent to the emergency department by primary care physician for hemoglobin of 6.3. History of Present Illness: Patient is 60-year-old male who has past medical history diabetes, DVT, hypertension dyslipidemia. He went to his 3 month checkup appointment yesterday with his primary care physician. Blood was drawn then. Results were available today patient was called and told to come to the emergency department for hemoglobin of 6.3. Daughter at bedside reports that patient has been weak and pale for the last 3 days. Patient denies any black stools. He has had history of multiple hernia repairs. He states that last couple days he's had worsening abdominal pain gets worse on the left lower quadrant and left upper quadrant. Denies any nausea or vomiting. Patient denies any changes of his symptoms with eating. Denies any fever or constitutional symptoms. Patient excluding within 4 DVT prophylaxis The ROS documented in this emergency department record has been reviewed and confirmed by me. Those systems with pertinent positive or negative responses have been documented in the HPI. All other systems are other negative and/or noncontributory. PHYSICAL EXAM: General Impression: Alert and oriented x3, not in acute distress, conjunctival pallor HEENT: Normocephalic atraumatic, extra-ocular movements intact, pupils equal and reactive to light bilaterally, mucous membranes moist. Cardiovascular: Heart regular rate and rhythm Chest: Able to complete full sentences, no retractions, no tachypnea Abdomen: abdomen soft, non-tender, non-distended, no organomegaly Musculoskeletal: Pulses present and equal in all extremities, no peripheral edema Motor: no focal deficits noted Neurological: CN II-XII grossly intact, no focal motor or sensory deficits noted Skin: Intact with no visualized rashes Psych: Normal affect and mood Digital rectal exam: No gross blood ED course:-year-old male presents with hemoglobin of 6.3. Those performed by PCP yesterday. This blood was drawn after routine checkup appointment however patient has been symptomatic anemia for the last 3-4 days. He does show signs of anemia. He also has associated abdominal pain. Signs upon arrival are within acceptable limits. Patient is not hypotensive or tachycardic. He does however feel very weak. Laboratory evaluation obtained. Hemoglobin today is 7.6 with signs of macrocytosis. Coag panel shows INR 1.9. Metabolic panel shows lactic acidosis of 2.8. Stool occult blood is negative. Computed tomography scan of the abdomen and pelvis shows no proximal to mid distal jejunal small bowel obstruction. Transition point identified left lower quadrant has suspicion for concentric occluding mass or neoplasm. Perhaps focal severe inflammation or infection is causing obstruction. Patient started on Zosyn. Case was discussed with Dr. Jacobson who is aware patient. He is no further recommendations at this time. Given patient's degree of symptoms of anemia patient given she transfusion. Case discussed Dr. Diallo is willing to accept patients care. EKG interpretation: Ventricular rate 76, normal sinus rhythm,. 166, QRS 94, QTC 432. No MD prolongation, no QTC prolongation, no ST or T-wave changes noted. Overall, this EKG is unremarkable - Related Data Home Medications Medication Instructions Recorded Confirmed DULoxetine HCL [Cymbalta] 60 mg PO HS 10/08/17 04/30/20 metFORMIN HCL 2,000 mg PO HS 10/08/17 04/30/20 Glimepiride [Amaryl] 1 mg PO HS 11/20/18 04/30/20 Omeprazole [PriLOSEC] 40 mg PO HS 11/20/18 04/30/20 traZODone HCL 75 mg PO HS 11/20/18 04/30/20 Atorvastatin [Lipitor] 80 mg PO HS 07/07/19 04/30/20 Albuterol Sulfate [Proair Hfa] 2 puff INHALATION RT-Q6H PRN 04/30/20 04/30/20 Beclomethasone Dip 80 Mcg/Puff 2 puff INHALATION RT-BID 04/30/20 04/30/20 [Qvar 80 mcg] Benazepril HCl 20 mg PO HS 04/30/20 04/30/20 Lactulose [Constulose] 10 gm PO HS 04/30/20 04/30/20 Methocarbamol [Robaxin-750] 750 mg PO QID 04/30/20 04/30/20 Montelukast [Singulair] 10 mg PO HS 04/30/20 04/30/20 Triamterene-Hctz 37.5-25Mg 1 cap PO HS 04/30/20 04/30/20 [Dyazide 37.5-25 Capsule] Vitamin D3/Calcium(Unknown Dose) 3 tab PO HS 04/30/20 04/30/20 Warfarin Sodium 12 mg PO MOFR 04/30/20 04/30/20 Warfarin Sodium [Jantoven] 9 mg PO SUTUWETHSA 04/30/20 04/30/20 oxyCODONE HCL [OxyIR] 5 mg PO Q6H PRN 04/30/20 04/30/20 Allergies Allergy/AdvReac Type Severity Reaction Status Date / Time No Known Allergies Allergy Verified 09/29/20 12:45 Review of Systems ROS Statement: Those systems with pertinent positive or pertinent negative responses have been documented in the HPI. ROS Other: All systems not noted in ROS Statement are negative. Past Medical History Past Medical History: Diabetes Mellitus, Deep Vein Thrombosis (DVT), Hyperlipidemia, Hypertension, Sleep Apnea/CPAP/BIPAP Additional Past Medical History / Comment(s): Open incisional area from umbilical hernia sx. NEEDS MORE HERNIA REPAIRS. STATES AWAITING TWYLA HIP REPLACEMENT. STATES CURRENT DVT LEFT LEG, HX OF KIDNEY STONES History of Any Multi-Drug Resistant Organisms: MRSA Date of last positivie culture/infection: 05/25/20 MDRO Source:: Abdomen Past Surgical History: Appendectomy, Hernia Repair, Joint Replacement Additional Past Surgical History / Comment(s): APPENDECTOMY? Right knee REPLACED, hernia x2, ABD AORTOGRAM 02/24/17. Hernia repair Mar,. 3/4 Parathyroid removal surgery 01/18/2020 Past Anesthesia/Blood Transfusion Reactions: No Reported Reaction Past Psychological History: Anxiety, Depression Smoking Status: Current every day smoker Past Alcohol Use History: None Reported Past Drug Use History: Marijuana - Past Family History Mother History Unknown: Yes Family Medical History: Dementia, Diabetes Mellitus, Hyperlipidemia, Renal Disease Additional Family Medical History / Comment(s): dialysis Father Family Medical History: Coronary Artery Disease (CAD), Diabetes Mellitus General Exam Limitations: no limitations Course Vital Signs 09/29/20 12:43 Temperature 97.9 F Pulse Rate 93 Respiratory 20 Rate Blood Pressure 140/78 O2 Sat by Pulse 98 Oximetry Medical Decision Making - Lab Data Result diagrams: 09/29/20 13:25 09/29/20 13:25 Lab Results 09/29/20 09/29/20 09/29/20 Range/Units 13:20 13:25 13:25 WBC 7.5 (3.8-10.6) k/uL RBC 4.29 L (4.30-5.90) m/uL Hgb 7.6 L (13.0-17.5) gm/dL Hct 26.7 L (39.0-53.0) % MCV 62.3 L (80.0-100.0) fL MCH 17.8 L (25.0-35.0) pg MCHC 28.5 L (31.0-37.0) g/dL RDW 21.9 H (11.5-15.5) % Plt Count 409 (150-450) k/uL MPV 7.4 Neutrophils % 76 % Lymphocytes % 15 % Monocytes % 6 % Eosinophils % 2 % Basophils % 1 % Neutrophils # 5.7 (1.3-7.7) k/uL Lymphocytes # 1.1 (1.0-4.8) k/uL Monocytes # 0.4 (0-1.0) k/uL Eosinophils # 0.2 (0-0.7) k/uL Basophils # 0.1 (0-0.2) k/uL Manual Slide Review Performed Hypochromasia Marked Poikilocytosis Marked Anisocytosis Moderate Microcytosis Marked PT 19.1 H (9.0-12.0) sec INR 1.9 H (<1.2) APTT 27.5 (22.0-30.0) sec Sodium (137-145) mmol/L Potassium (3.5-5.1) mmol/L Chloride (98-107) mmol/L Carbon Dioxide (22-30) mmol/L Anion Gap mmol/L BUN (9-20) mg/dL Creatinine (0.66-1.25) mg/dL Est GFR (CKD-EPI)AfAm (>60 ml/min/1.73 sqM) Est GFR (CKD-EPI)NonAf (>60 ml/min/1.73 sqM) Glucose (74-99) mg/dL Plasma Lactic Acid Jose (0.7-2.0) mmol/L Calcium (8.4-10.2) mg/dL Magnesium (1.6-2.3) mg/dL Total Bilirubin (0.2-1.3) mg/dL AST (17-59) U/L ALT (4-49) U/L Alkaline Phosphatase (38-126) U/L Troponin I (0.000-0.034) ng/mL Total Protein (6.3-8.2) g/dL Albumin (3.5-5.0) g/dL Lipase (23-300) U/L Stool Occult Blood (Negative) Blood Type A Positive Blood Type Confirm Blood Type Recheck Bld Type Recheck Status Antibody Screen NEGATIVE Crossmatch See Detail Spec Expiration Date 09/29/20 09/29/20 09/29/20 Range/Units 13:25 13:25 13:25 WBC (3.8-10.6) k/uL RBC (4.30-5.90) m/uL Hgb (13.0-17.5) gm/dL Hct (39.0-53.0) % MCV (80.0-100.0) fL MCH (25.0-35.0) pg MCHC (31.0-37.0) g/dL RDW (11.5-15.5) % Plt Count (150-450) k/uL MPV Neutrophils % % Lymphocytes % % Monocytes % % Eosinophils % % Basophils % % Neutrophils # (1.3-7.7) k/uL Lymphocytes # (1.0-4.8) k/uL Monocytes # (0-1.0) k/uL Eosinophils # (0-0.7) k/uL Basophils # (0-0.2) k/uL Manual Slide Review Hypochromasia Poikilocytosis Anisocytosis Microcytosis PT (9.0-12.0) sec INR (<1.2) APTT (22.0-30.0) sec Sodium 137 (137-145) mmol/L Potassium 4.0 (3.5-5.1) mmol/L Chloride 100 (98-107) mmol/L Carbon Dioxide 24 (22-30) mmol/L Anion Gap 13 mmol/L BUN 11 (9-20) mg/dL Creatinine 0.86 (0.66-1.25) mg/dL Est GFR (CKD-EPI)AfAm >90 (>60 ml/min/1.73 sqM) Est GFR (CKD-EPI)NonAf >90 (>60 ml/min/1.73 sqM) Glucose 127 H (74-99) mg/dL Plasma Lactic Acid Jose 2.8 H* (0.7-2.0) mmol/L Calcium 9.4 (8.4-10.2) mg/dL Magnesium 1.7 (1.6-2.3) mg/dL Total Bilirubin 0.6 (0.2-1.3) mg/dL AST 17 (17-59) U/L ALT 14 (4-49) U/L Alkaline Phosphatase 88 (38-126) U/L Troponin I <0.012 (0.000-0.034) ng/mL Total Protein 7.0 (6.3-8.2) g/dL Albumin 4.1 (3.5-5.0) g/dL Lipase 28 (23-300) U/L Stool Occult Blood (Negative) Blood Type Blood Type Confirm Blood Type Recheck Bld Type Recheck Status Antibody Screen Crossmatch Spec Expiration Date 09/29/20 09/29/20 09/29/20 Range/Units 13:25 13:25 13:25 WBC (3.8-10.6) k/uL RBC (4.30-5.90) m/uL Hgb (13.0-17.5) gm/dL Hct (39.0-53.0) % MCV (80.0-100.0) fL MCH (25.0-35.0) pg MCHC (31.0-37.0) g/dL RDW (11.5-15.5) % Plt Count (150-450) k/uL MPV Neutrophils % % Lymphocytes % % Monocytes % % Eosinophils % % Basophils % % Neutrophils # (1.3-7.7) k/uL Lymphocytes # (1.0-4.8) k/uL Monocytes # (0-1.0) k/uL Eosinophils # (0-0.7) k/uL Basophils # (0-0.2) k/uL Manual Slide Review Hypochromasia Poikilocytosis Anisocytosis Microcytosis PT (9.0-12.0) sec INR (<1.2) APTT (22.0-30.0) sec Sodium (137-145) mmol/L Potassium (3.5-5.1) mmol/L Chloride (98-107) mmol/L Carbon Dioxide (22-30) mmol/L Anion Gap mmol/L BUN (9-20) mg/dL Creatinine (0.66-1.25) mg/dL Est GFR (CKD-EPI)AfAm (>60 ml/min/1.73 sqM) Est GFR (CKD-EPI)NonAf (>60 ml/min/1.73 sqM) Glucose (74-99) mg/dL Plasma Lactic Acid Jose (0.7-2.0) mmol/L Calcium (8.4-10.2) mg/dL Magnesium (1.6-2.3) mg/dL Total Bilirubin (0.2-1.3) mg/dL AST (17-59) U/L ALT (4-49) U/L Alkaline Phosphatase (38-126) U/L Troponin I (0.000-0.034) ng/mL Total Protein (6.3-8.2) g/dL Albumin (3.5-5.0) g/dL Lipase (23-300) U/L Stool Occult Blood Negative (Negative) Blood Type Blood Type Confirm A Positive Blood Type Recheck No Previous Record Bld Type Recheck Status CABO Indicated Antibody Screen Crossmatch Spec Expiration Date 10/02/2020 - 2324 Critical Care Time Critical Care Time: Yes Total Critical Care Time: 33 Disposition Clinical Impression: Symptomatic anemia, Bowel obstruction, Lactic acidosis Disposition: ADMITTED IP TO THIS [facility] Condition: Critical Referrals: Izaiah Bond DO [Primary Care Provider] - 1-2 days Decision Time: 15:28
[2020-09-29 14:25] LABS: ALT 14 U/L (4-49); AST 17 U/L (17-59); African American GFR (CKD) >90 (>60 ml/min/1.73 sqM); Albumin 4.1 g/dL (3.5-5.0); Alkaline Phosphatase 88 U/L (38-126); Anion Gap 13 mmol/L; Blood Urea Nitrogen 11 mg/dL (9-20); Calcium 9.4 mg/dL (8.4-10.2); Carbon Dioxide 24 mmol/L (22-30); Chloride 100 mmol/L (98-107); Glucose 127 mg/dL (74-99); Lipase 28 U/L (23-300); Magnesium 1.7 mg/dL (1.6-2.3); Non-African American GFR(CKD) >90 (>60 ml/min/1.73 sqM); Sodium 137 mmol/L (137-145); Total Bilirubin 0.6 mg/dL (0.2-1.3)
[2020-09-29 14:29] LABS: Anisocytosis Moderate; Basophils # (A) 0.1 k/uL (0-0.2); Basophils % (A) 1 %; Eosinophils # (A) 0.2 k/uL (0-0.7); Eosinophils % (A) 2 %; HCT 26.7 % (39.0-53.0); HGB 7.6 gm/dL (13.0-17.5); Hypochromasia Marked; Lymphocytes # (A) 1.1 k/uL (1.0-4.8); Lymphocytes % (A) 15 %; MCH 17.8 pg (25.0-35.0); MCHC 28.5 g/dL (31.0-37.0); MCV 62.3 fL (80.0-100.0); Mean Platelet Volume 7.4; Microcytosis Marked; Monocytes # (A) 0.4 k/uL (0-1.0); Monocytes % (A) 6 %; Neutrophils # (A) 5.7 k/uL (1.3-7.7); Neutrophils % (A) 76 %; Platelet Count 409 k/uL (150-450); Poikilocytosis Marked; RBC 4.29 m/uL (4.30-5.90); RDW 21.9 % (11.5-15.5); WBC 7.5 k/uL (3.8-10.6)
[2020-09-29 14:31] LABS: INR 1.9 (<1.2); Partial Thromboplastin Time 27.5 sec (22.0-30.0); Prothrombin Time 19.1 sec (9.0-12.0)
--- NOTE | 2020-09-29 15:06 | CT ---
EXAMINATION TYPE: CT abdomen pelvis w con DATE OF EXAM: 09/29/2020 COMPARISON: CT abdomen and pelvis April 30, 2020 HISTORY: Acute abdominal pain. CT DLP: 2560 mGycm, Automated Exposure Control for Dose Reduction was Utilized. CONTRAST: CT scan of the abdomen and pelvis is performed without oral but with IV Contrast, patient injected wi th 100 mL of Isovue 300. FINDINGS: LUNG BASES: No significant abnormality is appreciated. LIVER/GB: No significant abnormality is appreciated. PANCREAS: [id number] generalized fat replaced atrophy. SPLEEN: No significant abnormality is seen. ADRENALS: Roughly 1.8 cm left adrenal mass axial image 22 stable from prior. KIDNEYS: Symmetric cortical medullary uptake and excretion without hydronephrosis seen bilaterally. BOWEL: Suboptimal evaluation without enteric contrast. No suspicious stomach dilatation. There is flu id filled prominence of the third and fourth portion of duodenum which extends to fluid prominent and dilated jejunal loops in the left upper to mid abdomen. Small bowel loops dilated to 4.2 cm-image 35 . Small bowel feces sign at this level is present. There is abrupt transition left lower quadrant sec ondary to moderate to severe concentric wall thickening seen best on coronal image 54. Small bowel lo ops in the right abdomen are nondilated. Additional small bowel feces sign noted. Fecal material is s een in nondistended colon along the periphery. There is redundant sigmoid colon. There is some medial positioning of the left colon. PROSTATE/SEMINAL VESICLES: Normal size prostate. Occasional scattered tiny pelvic phlebolith. LYMPH NODES: No greater than 1cm abdominal or pelvic lymph nodes are appreciated. OSSEOUS STRUCTURES: Mild/moderate multilevel spurring in the spine. OTHER: Focal small to moderate amount of free fluid in pelvis current study axial image 70. Mild-to-m oderate calcified plaque of the aorta extends into branch vessels. Surgical change to the anterior ab dominal wall redemonstrated with improved fluid and air. Interval removal of percutaneous drainage ca theter. IMPRESSION: New proximal to mid distal jejunal small bowel obstruction. Transition point identified l eft lower quadrant has suspicion for concentric occluding mass or neoplasm but this is unusual in sma ll bowel, perhaps focal severe inflammation or infection is causing obstruction at this level. Follow -up advised.
[2020-09-29] MEDS ORDERED: ONDANSETRON 4 MG/2 ML VIAL IVP PRN (15:22)
[2020-09-29] MEDS ORDERED: NALOXONE 0.4 MG/ML 1 ML VIAL IV PRN (15:22)
[2020-09-29] MEDS ORDERED: PIPERACILLIN-TAZOBACTAM 3.375 GM in SODIUM CHLORIDE 0.9% 100 ML IVPB STA (15:25)
[2020-09-29] MEDS: MORPHINE SULFATE 4 MG/ML SYRINGE IV PRN ×2 (16:25→22:10)
--- NOTE | 2020-09-29 17:52 | XR ---
EXAMINATION TYPE: XR chest 1V DATE OF EXAM: 09/29/2020 COMPARISON: 05/18/2019 HISTORY: Tube placement TECHNIQUE: Single view FINDINGS: There is nasogastric tube with the tip apparently in the gastric fundus. There is no contra st for verification. Tip is very close to the gastroesophageal junction. Lungs are clear of infiltrate. There is no heart failure. Heart size is normal. There are chest leads . IMPRESSION: NG tube is at the gastroesophageal junction or in the gastric fundus. No acute lung disea se. Heart and lungs are unchanged.
[2020-09-29] MEDS ORDERED: ALBUTEROL NEBULIZED 2.5 MG/3 ML INHALATION PRN (19:46)
[2020-09-29] MEDS ORDERED: MELATONIN 3 MG TABLET PO PRN (19:57)
[2020-09-29] MEDS: DULoxetine HCL 60 MG CAPSULE.DR PO SCH (20:08)
[2020-09-29 20:15] LABS: Glucose,Whole Blood 99 mg/dL (75-99)
[2020-09-29] MEDS: SODIUM CHLORIDE 0.9% 1,000 ML IV SCH (20:21)
[2020-09-29] MEDS: diphenhydrAMINE 25 MG CAP PO SCH (20:22)
[2020-09-29] MEDS: PANTOPRAZOLE 40 MG/10 ML VIAL IVP SCH (20:22)
[2020-09-29] MEDS: traZODone HCL 50 MG TAB PO SCH (20:22)
[2020-09-29] MEDS: ATORVASTATIN 80 MG TAB PO SCH (20:22)
[2020-09-29] MEDS: lisinopriL 20 MG TAB PO SCH (20:22)
[2020-09-29] MEDS: INSULIN ASPART (NovoLOG) 100 UNIT/ML VIAL SQ SCH (20:40)
[2020-09-29] MEDS: HYDROCORTISONE 1% CREAM 30 GM TUBE TOPICAL SCH (20:40)
[2020-09-29] MEDS ORDERED: MELATONIN 3 MG TABLET PO SCH (21:00)
[2020-09-29] MEDS: GABAPENTIN 300 MG CAP PO SCH (21:02)
--- NOTE | 2020-09-29 23:06 | P.HPIM ---
History of Present Illness H&P Date: 09/29/20 Chief Complaint: low Hb Patient is a 60-year-old male with a known history of hypertension, hyperlipidemia, obstructive sleep apnea on CPAP at home, diabetes type 2, history of multiple DVTs currently warfarin for anticoagulation, anxiety/depression and everyday smoker and history of marijuana use was sent to hospital ER by his primary care physician due to hemoglobin level 6.3. Patient had blood work-up done at the clinic yesterday and reported hemoglobin of 6.3 today. According to his daughter at bedside. Patient has been having lethargic and very weak and pale for the past 3 days. Denied any dark-colored stools. Patient has been having nausea and episodes of vomiting. Mainly bilious. No blood in the vomitus. Patient was also having worsening abdominal pain for the past 2 to 3 days. No fever no chills. No cough or sputum production. Patient does have some exertional dyspnea. CT of the abdomen pelvis showed new proximal to mid to distal jejunal small bowel obstruction. Transition point identified left lower quadrant ports are suspicious for concentric occluding mass neoplasm but this is unusual in the small bowel. Focal severe inflammation of infection is causing the obstruction at this level. Follow-up is advised. Chest x-ray showed NG tube in the GE junction or in the gastric fundus. No acute lung disease. Heart and lungs are unchanged. Laboratory data showed lactic acid level 2.8, INR 1.9, hemoglobin 7.6, WBC 7.5, MCV 62.3 and RDW 21.9 Stool for occult blood is negative Coronavirus PCR not detected. Review of Systems Complete review of systems could not be obtained from the patient. Except as per HPI. Past Medical History Past Medical History: Diabetes Mellitus, Deep Vein Thrombosis (DVT), Hyperlipidemia, Hypertension, Sleep Apnea/CPAP/BIPAP Additional Past Medical History / Comment(s): Open incisional area from umbilical hernia sx. NEEDS MORE HERNIA REPAIRS. STATES AWAITING TWYLA HIP REPLACEMENT. STATES CURRENT DVT LEFT LEG, HX OF KIDNEY STONES History of Any Multi-Drug Resistant Organisms: MRSA Date of last positivie culture/infection: 05/25/20 MDRO Source:: Abdomen Past Surgical History: Appendectomy, Hernia Repair, Joint Replacement Additional Past Surgical History / Comment(s): APPENDECTOMY? Right knee REPLACED, hernia x2, ABD AORTOGRAM 02/24/17. Hernia repair Mar,. 3/4 Parathyroid removal surgery 01/18/2020 Past Anesthesia/Blood Transfusion Reactions: No Reported Reaction Past Psychological History: Anxiety, Depression Smoking Status: Current every day smoker Past Alcohol Use History: None Reported Past Drug Use History: Marijuana - Past Family History Mother History Unknown: Yes Family Medical History: Dementia, Diabetes Mellitus, Hyperlipidemia, Renal Disease Additional Family Medical History / Comment(s): dialysis Father Family Medical History: Coronary Artery Disease (CAD), Diabetes Mellitus Medications and Allergies Home Medications Medication Instructions Recorded Confirmed Type DULoxetine HCL [Cymbalta] 60 mg PO HS 10/08/17 09/29/20 History metFORMIN HCL 1,000 mg PO BID 10/08/17 09/29/20 History Glimepiride [Amaryl] 1 mg PO HS 11/20/18 09/29/20 History Omeprazole [PriLOSEC] 40 mg PO HS 11/20/18 09/29/20 History traZODone HCL 75 mg PO HS 11/20/18 09/29/20 History Atorvastatin [Lipitor] 80 mg PO HS 07/07/19 09/29/20 History Albuterol Sulfate [Proair Hfa] 2 puff INHALATION RT-Q6H PRN 04/30/20 09/29/20 History Benazepril HCl 20 mg PO HS 04/30/20 09/29/20 History Gabapentin [Neurontin] 300 mg PO TID 09/29/20 09/29/20 History Hydrocortisone Cream 1 applic TOPICAL BID 09/29/20 09/29/20 History [Hydrocortisone 1% Cream] Tiotropium [place] [Spiriva 2 puff INHALATION RT-DAILY 09/29/20 09/29/20 History Respimat] Triamterene-Hctz 37.5-25Mg 1 tab PO DAILY 09/29/20 09/29/20 History [Maxzide 37.5-25] Warfarin [Coumadin] 9 mg PO [id number] 09/29/20 09/29/20 History Warfarin [Coumadin] 12 mg PO ESQUIVEL 09/29/20 09/29/20 History diphenhydrAMINE HCL [Benadryl] 25 mg PO BID 09/29/20 09/29/20 History Allergies Allergy/AdvReac Type Severity Reaction Status Date / Time No Known Allergies Allergy Verified 09/29/20 15:30 Physical Exam Vitals: Vital Signs Temp Pulse Resp BP Pulse Ox 09/29/20 17:45 84 18 121/71 99 09/29/20 16:54 98.1 F 82 18 130/71 96 09/29/20 16:24 98 F 86 16 121/61 97 09/29/20 16:14 98.8 F 84 18 128/83 100 09/29/20 12:43 97.9 F 93 20 140/78 98 Intake and Output 09/29/20 09/29/20 09/29/20 06:59 14:59 22:59 Intake Total 0 Balance 0 Intake: Blood Product 0 Rc As-1 Unit 0 [id number] Other: Weight 130.635 kg PHYSICAL EXAMINATION: Patient is lying in the bed comfortably, no acute distress, awake alert and oriented but lethargic.. HEENT: Normocephalic. Neck is supple. Pupils reactive. Nostrils clear. Oral cavity is moist. Ears reveal no drainage. Neck reveals no JVD, carotid bruits, or thyromegaly. CHEST EXAMINATION: Trachea is central. Symmetrical expansion. Lung agee clear to auscultation and percussion. CARDIAC: Normal S1, S2 with no gallops. No murmurs ABDOMEN: Soft. Bowel sounds normal. No organomegaly. No abdominal bruits. Extremities: 2+ edema. No clubbing or cyanosis Neurologically awake, alert, oriented x1-2 with well-coordinated movements. No focal deficits noted Skin: No rash or skin lesions. Psychiatric: Coperative. Musculoskeletal: No joint swelling or deformity. Normal range of motion. Results CBC & Chem 7: 09/29/20 13:25 09/29/20 13:25 Labs: Abnormal Lab Results - Last 24 Hours (Table) 09/29/20 09/29/20 09/29/20 Range/Units 13:20 13:25 13:25 RBC 4.29 L (4.30-5.90) m/uL Hgb 7.6 L (13.0-17.5) gm/dL Hct 26.7 L (39.0-53.0) % MCV 62.3 L (80.0-100.0) fL MCH 17.8 L (25.0-35.0) pg MCHC 28.5 L (31.0-37.0) g/dL RDW 21.9 H (11.5-15.5) % PT 19.1 H (9.0-12.0) sec INR 1.9 H (<1.2) Glucose (74-99) mg/dL Plasma Lactic Acid Jose (0.7-2.0) mmol/L Crossmatch See Detail 09/29/20 09/29/20 Range/Units 13:25 13:25 RBC (4.30-5.90) m/uL Hgb (13.0-17.5) gm/dL Hct (39.0-53.0) % MCV (80.0-100.0) fL MCH (25.0-35.0) pg MCHC (31.0-37.0) g/dL RDW (11.5-15.5) % PT (9.0-12.0) sec INR (<1.2) Glucose 127 H (74-99) mg/dL Plasma Lactic Acid Jose 2.8 H* (0.7-2.0) mmol/L Crossmatch Thrombosis Risk Factor Assmnt - DVT/VTE Prophylaxis DVT/VTE Prophylaxis: Mechanical Prophylaxis ordered Assessment and Plan Assessment: Symptomatic anemia Microcytic iron deficiency anemia Lactic acidosis Acute small bowel obstruction with possible mass as per CT report History of multiple DVTs currently on anticoagulation with Coumadin Obstructive sleep apnea on CPAP at home Hypertension Hyperlipidemia Diabetes type 2 [id number] Anxiety/depression Currently everyday smoker History of marijuana use Diabetic peripheral neuropathy DVT prophylaxis patient is on warfarin. Plan: Patient will be continued on IV hydration nothing by mouth. NG tube was placed and patient will be continued on IV PPI and monitor H&H. Patient will be transfused with 1 unit of PRBC. Continue with insulin sliding scale and home medications. GI and general surgery was consulted. We will obtain iron profile. Further recommendations based on clinical course. Discussed with his daughter at bedside in detail. Prognosis guarded at this time. Time with Patient: Greater than 30
[2020-09-30] MEDS: SODIUM CHLORIDE 0.9% 1,000 ML IV SCH ×2 (00:39→15:42)
[2020-09-30] MEDS: MORPHINE SULFATE 4 MG/ML SYRINGE IV PRN ×4 (02:32→23:09)
[2020-09-30 06:05] LABS: Glucose,Whole Blood 105 mg/dL (75-99)
[2020-09-30] MEDS: INSULIN ASPART (NovoLOG) 100 UNIT/ML VIAL SQ SCH ×4 (06:35→21:17)
[2020-09-30 08:04] LABS: Anisocytosis Moderate; Basophils # (A) 0.1 k/uL (0-0.2); Basophils % (A) 1 %; Eosinophils # (A) 0.2 k/uL (0-0.7); Eosinophils % (A) 4 %; HCT 25.8 % (39.0-53.0); HGB 7.5 gm/dL (13.0-17.5); Hypochromasia Marked; Lymphocytes # (A) 1.3 k/uL (1.0-4.8); Lymphocytes % (A) 22 %; MCHC 29.3 g/dL (31.0-37.0); Mean Platelet Volume 7.4; Microcytosis Marked; Monocytes # (A) 0.4 k/uL (0-1.0); Monocytes % (A) 7 %; Neutrophils # (A) 3.8 k/uL (1.3-7.7); Neutrophils % (A) 65 %; Platelet Count 325 k/uL (150-450); Poikilocytosis Marked; RBC 3.97 m/uL (4.30-5.90); RDW 23.8 % (11.5-15.5); WBC 5.8 k/uL (3.8-10.6)
[2020-09-30 08:28] LABS: African American GFR (CKD) >90 (>60 ml/min/1.73 sqM); Anion Gap 8 mmol/L; Blood Urea Nitrogen 11 mg/dL (9-20); Calcium 8.3 mg/dL (8.4-10.2); Carbon Dioxide 27 mmol/L (22-30); Chloride 103 mmol/L (98-107); Glucose 89 mg/dL (74-99); Non-African American GFR(CKD) 89 (>60 ml/min/1.73 sqM); Potassium 3.9 mmol/L (3.5-5.1); Sodium 138 mmol/L (137-145)
[2020-09-30] MEDS: PANTOPRAZOLE 40 MG/10 ML VIAL IVP SCH ×2 (08:29→21:16)
[2020-09-30] MEDS: diphenhydrAMINE 25 MG CAP PO SCH ×2 (08:29→21:16)
[2020-09-30] MEDS: GABAPENTIN 300 MG CAP PO SCH ×3 (08:29→21:16)
[2020-09-30] MEDS: HYDROCORTISONE 1% CREAM 30 GM TUBE TOPICAL SCH ×2 (08:30→21:17)
--- NOTE | 2020-09-30 08:44 | CONS ---
CONSULTATION DATE OF DICTATION: September 30, 2020. REASON FOR CONSULTATION: Severe symptomatic microcytic hypochromic anemia and abdominal pain. HISTORY OF PRESENT ILLNESS: The patient is a 60-year-old pleasant white male with history of hypertension, hyperlipidemia, sleep apnea, and DVT on anticoagulation, was admitted to the hospital because of low hemoglobin. Apparently he was noted to have a hemoglobin of 6.3 g/dL when he was done on an outpatient basis. He was advised to go to the emergency room and as soon as he came here, he was complaining of severe abdominal pain associated with multiple episodes of nausea, vomiting. The pain was mostly in the epigastric and periumbilical area and had about 7 or 8 bilious emesis. He came into the ER. Repeat labs showed a hemoglobin of 6.3 g/dL. He had a CT of the abdomen and pelvis done that showed evidence of distant jejunal small bowel obstruction with a transition point identified in the left lower quadrant area that was suspicious for concentric occluding mass versus inflammation in that area. The patient had an NG tube in place and surgery has been consulted. This morning, he is feeling better. The abdominal pain has resolved. He denies any rectal bleeding or melena. He states that he had a colonoscopy approximately 5 or 6 years ago in [facility] that was unremarkable. PAST MEDICAL HISTORY: Significant for hypertension, hyperlipidemia, DVT, on Coumadin, diabetes mellitus, sleep apnea. MEDICATIONS: Medications at home include Cymbalta, metformin, Amaryl, Prilosec, trazodone, Lipitor, ProAir, benazepril, Neurontin, Dyazide, Coumadin and Benadryl. ALLERGIES: None. SOCIAL HISTORY: Chronic smoker. No alcohol use. PAST SURGICAL HISTORY: Appendectomy, hernia repair in March of 2020 in [facility] and right knee replacement, parathyroid surgery. REVIEW OF SYSTEMS: CARDIOPULMONARY: No chest pain or shortness of breath. no dysuria or hematuria. MUSCULOSKELETAL unremarkable. SKIN unremarkable. ENDOCRINE unremarkable. PSYCHIATRIC: Anxiety and depression. ENT/VISION: Unremarkable. CONSTITUTIONAL: No recent weight loss. No fever, chills, night sweats. HEMATOLOGY: Severe anemia. PHYSICAL EXAMINATION: He appears comfortable. No apparent distress. Vital signs stable. Blood pressure is 142/88, pulse rate 85 per minute and afebrile. HEENT examination unremarkable. Conjunctivae pink. Sclerae anicteric. Oral cavity no lesions. NECK: No JVD or lymph node enlargement. CHEST was clear to auscultation. HEART: Regular rate and rhythm. ABDOMEN: Soft, it was nontender, nondistended. There was some bandage on the midline scar noted. There was no organomegaly. EXTREMITIES: No pedal edema. SKIN: No rashes. NEURO: He is alert and oriented x3. No focal deficits. LABS: Labs done from yesterday: Hemoglobin was 6.3. Repeat hemoglobin yesterday 7.6, MCV 62, platelets 409. AST/ALT and T-bilirubin and alkaline phosphatase are within normal limits. BUN and creatinine normal. INR is 1.9. Stool occult blood is negative. Abdominal CT scan done yesterday showed fluid-filled prominence of the third and fourth part of the duodenum which extends into the distal jejunum. in the left lower quadrant area secondary to [id number] concentric wall thickening, suspicious for neoplasm was an inflammation. IMPRESSION: 1. Acute onset of epigastric abdominal pain associated with nausea and vomiting secondary to small bowel obstruction. CT scan of the abdomen showed dilated small bowel loops with a transition point in the left lower quadrant area. There was concentric wall thickening suspicious for neoplasm versus inflammation. Surgery has been consulted. 2. Severe microcytic hypochromic anemia with clinically no evidence of active bleeding. Last colonoscopy was 5 years ago. 3. History of recurrent DVT, on Coumadin, currently on hold. 4. History of hypertension, hyperlipidemia. 5. History of sleep apnea. RECOMMENDATIONS: 1. Agree with NG tube placement. 2. Agree with PRBC transfusion. 3. Await surgical consultation. 4. We will hold off on any endoscopic intervention until evaluated by surgery. 5. Monitor CBC closely. 6. Continue with Protonix 40 mg daily. 7. Will follow with you closely. Thank you for this consultation. MMODL / IJN: [id number] /
--- NOTE | 2020-09-30 11:01 | P.GSCN ---
History of Present Illness Consult date: 09/30/20 Reason for Consult: Small bowel obstruction History of present illness: This is a 60-year-old male who presented to the hospital with a three-day history of nausea vomiting. Patient is known to become progressively anemic over the last several months. His CAT scan performed shows evidence of a small bowel obstruction in the mid small bowel located left side the abdomen. Patient states she's felt better after nasogastric tube decompression overnight. Past Medical History Past Medical History: Diabetes Mellitus, Deep Vein Thrombosis (DVT), Hyperlipidemia, Hypertension, Sleep Apnea/CPAP/BIPAP Additional Past Medical History / Comment(s): Open incisional area from umbili gelacio hernia sx. NEEDS MORE HERNIA REPAIRS. STATES AWAITING TWYLA HIP REPLACEMENT. STATES CURRENT DVT LEFT LEG, HX OF KIDNEY STONES History of Any Multi-Drug Resistant Organisms: MRSA Year Discovered:: 05/25/20 MDRO Source:: Abdomen Past Surgical History: Appendectomy, Hernia Repair, Joint Replacement Additional Past Surgical History / Comment(s): APPENDECTOMY? Right knee REPLACED, hernia x2, ABD AORTOGRAM 02/24/17. Hernia repair Mar,. 3/4 Parathyroid removal surgery 01/18/2020 Past Anesthesia/Blood Transfusion Reactions: No Reported Reaction Past Psychological History: Anxiety, Depression Smoking Status: Current every day smoker Past Alcohol Use History: None Reported Past Drug Use History: Marijuana - Past Family History Mother History Unknown: Yes Family Medical History: Dementia, Diabetes Mellitus, Hyperlipidemia, Renal Disease Additional Family Medical History / Comment(s): dialysis Father Family Medical History: Coronary Artery Disease (CAD), Diabetes Mellitus Medications and Allergies Home Medications Medication Instructions Recorded Confirmed Type DULoxetine HCL [Cymbalta] 60 mg PO HS 10/08/17 09/29/20 History metFORMIN HCL 1,000 mg PO BID 10/08/17 09/29/20 History Glimepiride [Amaryl] 1 mg PO HS 11/20/18 09/29/20 History Omeprazole [PriLOSEC] 40 mg PO HS 11/20/18 09/29/20 History traZODone HCL 75 mg PO HS 11/20/18 09/29/20 History Atorvastatin [Lipitor] 80 mg PO HS 07/07/19 09/29/20 History Albuterol Sulfate [Proair Hfa] 2 puff INHALATION RT-Q6H PRN 04/30/20 09/29/20 History Benazepril HCl 20 mg PO HS 04/30/20 09/29/20 History Gabapentin [Neurontin] 300 mg PO TID 09/29/20 09/29/20 History Hydrocortisone Cream 1 applic TOPICAL BID 09/29/20 09/29/20 History [Hydrocortisone 1% Cream] Tiotropium [place] [Spiriva 2 puff INHALATION RT-DAILY 09/29/20 09/29/20 History Respimat] Triamterene-Hctz 37.5-25Mg 1 tab PO DAILY 09/29/20 09/29/20 History [Maxzide 37.5-25] Warfarin [Coumadin] 9 mg PO [id number] 09/29/20 09/29/20 History Warfarin [Coumadin] 12 mg PO ESQUIVEL 09/29/20 09/29/20 History diphenhydrAMINE HCL [Benadryl] 25 mg PO BID 09/29/20 09/29/20 History Allergies Allergy/AdvReac Type Severity Reaction Status Date / Time No Known Allergies Allergy Verified 09/29/20 15:30 Surgical - Exam Vital Signs Temp Pulse Resp BP Pulse Ox 97.9 F 93 20 140/78 98 09/29/20 12:43 09/29/20 12:43 09/29/20 12:43 09/29/20 12:43 09/29/20 12:43 - General well developed, well nourished, no distress - Eyes PERRL - ENT normal pinna - Neck no masses - Respiratory normal expansion - Cardiovascular Rhythm: regular - Abdomen Mild tenderness. There is evidence of previous exploratory laparotomy with incisional hernia repair scar. Abdomen: soft Results - Labs 09/30/20 06:31 09/30/20 06:31 Abnormal Lab Results - Last 24 Hours (Table) 09/29/20 09/29/20 09/29/20 Range/Units 13:20 13:25 13:25 RBC 4.29 L (4.30-5.90) m/uL Hgb 7.6 L (13.0-17.5) gm/dL Hct 26.7 L (39.0-53.0) % MCV 62.3 L (80.0-100.0) fL MCH 17.8 L (25.0-35.0) pg MCHC 28.5 L (31.0-37.0) g/dL RDW 21.9 H (11.5-15.5) % PT 19.1 H (9.0-12.0) sec INR 1.9 H (<1.2) Glucose (74-99) mg/dL POC Glucose (mg/dL) (75-99) mg/dL Plasma Lactic Acid Jose (0.7-2.0) mmol/L Calcium (8.4-10.2) mg/dL Crossmatch See Detail 09/29/20 09/29/20 09/29/20 Range/Units 13:25 13:25 18:47 RBC (4.30-5.90) m/uL Hgb (13.0-17.5) gm/dL Hct (39.0-53.0) % MCV (80.0-100.0) fL MCH (25.0-35.0) pg MCHC (31.0-37.0) g/dL RDW (11.5-15.5) % PT (9.0-12.0) sec INR (<1.2) Glucose 127 H (74-99) mg/dL POC Glucose (mg/dL) (75-99) mg/dL Plasma Lactic Acid Jose 2.8 H* 2.4 H* (0.7-2.0) mmol/L Calcium (8.4-10.2) mg/dL Crossmatch 09/30/20 09/30/20 09/30/20 Range/Units 06:04 06:31 06:31 RBC 3.97 L (4.30-5.90) m/uL Hgb 7.5 L (13.0-17.5) gm/dL Hct 25.8 L (39.0-53.0) % MCV 65.0 L (80.0-100.0) fL MCH 19.0 L (25.0-35.0) pg MCHC 29.3 L (31.0-37.0) g/dL RDW 23.8 H (11.5-15.5) % PT (9.0-12.0) sec INR (<1.2) Glucose (74-99) mg/dL POC Glucose (mg/dL) 105 H (75-99) mg/dL Plasma Lactic Acid Jose (0.7-2.0) mmol/L Calcium 8.3 L (8.4-10.2) mg/dL Crossmatch Diabetes panel 09/29/20 09/30/20 Range/Units 13:25 06:31 Sodium 137 138 (137-145) mmol/L Potassium 4.0 3.9 (3.5-5.1) mmol/L Chloride 100 103 (98-107) mmol/L Carbon Dioxide 24 27 (22-30) mmol/L BUN 11 11 (9-20) mg/dL Creatinine 0.86 0.93 (0.66-1.25) mg/dL Glucose 127 H 89 (74-99) mg/dL Calcium 9.4 8.3 L (8.4-10.2) mg/dL AST 17 (17-59) U/L ALT 14 (4-49) U/L Alkaline Phosphatase 88 (38-126) U/L Total Protein 7.0 (6.3-8.2) g/dL Albumin 4.1 (3.5-5.0) g/dL Thyroid panel 09/30/20 Range/Units 06:31 TSH 4.560 (0.465-4.680) mIU/L Calcium panel 09/29/20 09/30/20 Range/Units 13:25 06:31 Calcium 9.4 8.3 L (8.4-10.2) mg/dL Albumin 4.1 (3.5-5.0) g/dL Pituitary panel 09/29/20 09/30/20 Range/Units 13:25 06:31 Sodium 137 138 (137-145) mmol/L Potassium 4.0 3.9 (3.5-5.1) mmol/L Chloride 100 103 (98-107) mmol/L Carbon Dioxide 24 27 (22-30) mmol/L BUN 11 11 (9-20) mg/dL Creatinine 0.86 0.93 (0.66-1.25) mg/dL Glucose 127 H 89 (74-99) mg/dL Calcium 9.4 8.3 L (8.4-10.2) mg/dL TSH 4.560 (0.465-4.680) mIU/L Adrenal panel 09/29/20 09/30/20 Range/Units 13:25 06:31 Sodium 137 138 (137-145) mmol/L Potassium 4.0 3.9 (3.5-5.1) mmol/L Chloride 100 103 (98-107) mmol/L Carbon Dioxide 24 27 (22-30) mmol/L BUN 11 11 (9-20) mg/dL Creatinine 0.86 0.93 (0.66-1.25) mg/dL Glucose 127 H 89 (74-99) mg/dL Calcium 9.4 8.3 L (8.4-10.2) mg/dL Total Bilirubin 0.6 (0.2-1.3) mg/dL AST 17 (17-59) U/L ALT 14 (4-49) U/L Alkaline Phosphatase 88 (38-126) U/L Total Protein 7.0 (6.3-8.2) g/dL Albumin 4.1 (3.5-5.0) g/dL Assessment and Plan Assessment: Spell obstruction. Patient will undergo exploratory laparotomy in the a.m. I discussed the patient and his daughter that he is at higher risk due to his previous incisional hernia and exploratory laparotomy perforated appendix the past. There is significantly restricted adhesions.
[2020-09-30 12:02] LABS: Glucose,Whole Blood 98 mg/dL (75-99)
[2020-09-30 13:13] LABS: % Iron Saturation 3.12 (15.00-50.00); Iron 11 ug/dL (65-175); Total Iron Binding Capacity 353 ug/dL (228-460)
[2020-09-30 16:34] LABS: Glucose,Whole Blood 93 mg/dL (75-99)
[2020-09-30 19:49] LABS: Glucose,Whole Blood 100 mg/dL (75-99)
[2020-09-30] MEDS: ATORVASTATIN 80 MG TAB PO SCH (21:16)
[2020-09-30] MEDS: traZODone HCL 50 MG TAB PO SCH (21:16)
[2020-09-30] MEDS: lisinopriL 20 MG TAB PO SCH (21:16)
[2020-09-30] MEDS: DULoxetine HCL 60 MG CAPSULE.DR PO SCH (21:17)
[2020-10-01] MEDS: SODIUM CHLORIDE 0.9% 1,000 ML IV SCH ×2 (01:19→14:28)
[2020-10-01 06:12] LABS: Glucose,Whole Blood 99 mg/dL (75-99)
[2020-10-01] MEDS: INSULIN ASPART (NovoLOG) 100 UNIT/ML VIAL SQ SCH ×4 (06:37→22:08)
[2020-10-01 07:01] LABS: Anisocytosis Marked; Basophils % (A) 1 %; Eosinophils # (A) 0.2 k/uL (0-0.7); Eosinophils % (A) 4 %; HCT 25.7 % (39.0-53.0); HGB 7.4 gm/dL (13.0-17.5); Hypochromasia Marked; Lymphocytes # (A) 1.2 k/uL (1.0-4.8); Lymphocytes % (A) 20 %; MCH 18.9 pg (25.0-35.0); MCHC 28.8 g/dL (31.0-37.0); MCV 65.9 fL (80.0-100.0); Mean Platelet Volume 7.4; Microcytosis Marked; Monocytes # (A) 0.4 k/uL (0-1.0); Monocytes % (A) 6 %; Neutrophils % (A) 68 %; Platelet Count 343 k/uL (150-450); Poikilocytosis Marked; WBC 5.9 k/uL (3.8-10.6)
[2020-10-01 07:14] LABS: African American GFR (CKD) >90 (>60 ml/min/1.73 sqM); Anion Gap 9 mmol/L; Blood Urea Nitrogen 11 mg/dL (9-20); Calcium 8.1 mg/dL (8.4-10.2); Carbon Dioxide 23 mmol/L (22-30); Chloride 105 mmol/L (98-107); Glucose 80 mg/dL (74-99); Non-African American GFR(CKD) >90 (>60 ml/min/1.73 sqM); Potassium 3.8 mmol/L (3.5-5.1); Sodium 137 mmol/L (137-145)
[2020-10-01] MEDS: diphenhydrAMINE 25 MG CAP PO SCH ×2 (09:34→22:06)
[2020-10-01] MEDS: HYDROCORTISONE 1% CREAM 30 GM TUBE TOPICAL SCH (09:34)
[2020-10-01] MEDS: GABAPENTIN 300 MG CAP PO SCH ×3 (09:34→22:06)
[2020-10-01] MEDS: PANTOPRAZOLE 40 MG/10 ML VIAL IVP SCH ×2 (09:49→22:08)
--- NOTE | 2020-10-01 10:21 | PN ---
PROGRESS NOTE DATE OF DICTATION: October 01, 2020 Patient is a 60-year-old pleasant white male admitted to the hospital with acute small bowel obstruction. He presented with abdominal pain, nausea, vomiting for 2 days prior to hospitalization. He was also noted to have severe symptomatic anemia with a hemoglobin of 7.6 requiring a unit of PRBC transfusion. He has an NG tube in place. Surgery has been consulted. He was evaluated by Dr. Jacobson yesterday and scheduled for an exploratory laparotomy today. In the meantime, patient overall condition remains the same. He denies any abdominal pain today. NG tube still in place. PHYSICAL EXAMINATION: Appears comfortable. VITAL SIGNS: Stable. Blood pressure 148/63, pulse rate 89, temperature 98.4. HEENT examination unremarkable. Conjunctivae pink. Sclerae anicteric. Oral cavity no lesions. NECK: No JVD or lymph node enlargement. CHEST was clear to auscultation. HEART: Regular rate and rhythm. ABDOMEN: Soft, it was slightly distended but tympanic, nontender. EXTREMITIES: No pedal edema. NEUROLOGIC: Alert and oriented x3. No focal deficits. LABS: WBC 5.9, hemoglobin 7.4, platelets 343. IMPRESSION: 1. Acute small-bowel obstruction. CT scan showed transition point in the distal jejunum in the left lower quadrant area with concentric thickening. Neoplasm could not be excluded. Patient is scheduled for exploratory laparotomy by Dr. Jacobson today. 2. Severe microcytic hypochromic anemia consistent with iron deficiency anemia, status post one unit of PRBC transfusion. Today hemoglobin is 7.4 g/dL. Last EGD and colonoscopy more than 5 years ago. RECOMMENDATIONS: 1. Monitor CBC closely. 2. Patient is scheduled for an exploratory laparotomy today and will await the findings. 3. We will follow with you closely. Thank you for this consultation. MMODL / IJN: [id number] /
[2020-10-01 10:55] LABS: Glucose,Whole Blood 106 mg/dL (75-99)
[2020-10-01] MEDS ORDERED: SODIUM CHLORIDE 0.9% 1,000 ML IV ONE (11:24)
[2020-10-01] MEDS ORDERED: LACTATED RINGERS 1,000 ML IV ONE (11:46)
[2020-10-01] MEDS ORDERED: ceFAZolin 1,000 MG VIAL IVPB ONE (11:50)
[2020-10-01] MEDS ORDERED: PHYTONADIONE 10 MG in SODIUM CHLORIDE 0.9% 50 ML IVPB STA (12:11)
[2020-10-01] MEDS ORDERED: HYDROmorphone 1 MG/ML 1 ML SYRINGE IVP ONE (13:04)
[2020-10-01] MEDS ORDERED: diphenhydrAMINE 50 MG/ML 1 ML VIAL IVP ONE (13:05)
[2020-10-01] MEDS ORDERED: KETOROLAC 15 MG/ML 1 ML VIAL IVP PRN (13:07)
[2020-10-01] MEDS ORDERED: BENZOCAINE/MENTHOL LOZENG 1 EACH LOZENGE MUCOUS MEM PRN (13:07)
[2020-10-01] MEDS: HYDROmorphone 0.5 MG/0.5 ML SYRINGE IVP ONE ×2 (13:09→13:14)
--- NOTE | 2020-10-01 13:15 | P.OP ---
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 He received general anesthesia. His abdomen was prepped and draped usual sterile fashion. The patient had a midline scar which was excised using a 15 blade. There were 2 small draining sinuses in the midline scar. Using the cautery and subcutaneous tissue divided. The abdomen wall had a pocket of pus this was cultured. The fascia was then divided. There is evidence of incisional hernia. There is also evidence of infected mesh. The mesh was removed with sharp dissection. There are extensive adhesions in the pleural cavity. Approximately 20 minutes of operative time used to lyse adhesions. The small bowel was then visualized. There was a tumor of the proximal jejunum. This was obstructing the bowel. At this point the bowel was resected using a HUNTER stapler and then a [id number] functional end-to-end stapled S was created using the HUNTER and TA stapler. The mesentery the bowel was divided with the Enseal device. Specimens of pathology. There was area there is no bleeding seen. There is no other evidence of bowel obstruction. The fascia was then closed with looped #1 PDS suture. The skin was partially closed with a skin stapler. And then a wound VAC was placed over the central portion of the wound. Patient top she will was sent to recovery r oom stable condition.
[2020-10-01 13:16] LABS: Glucose,Whole Blood 150 mg/dL (75-99)
[2020-10-01] MEDS ORDERED: METOPROLOL TARTRATE 5 MG/5 ML VIAL IVP ONE (13:38)
[2020-10-01] MEDS: HYDROmorphone 1 MG/ML 1 ML SYRINGE IVP PRN (15:09)
[2020-10-01] MEDS ORDERED: VANCOMYCIN IV PER PHARMACY 1 EACH MISC MISCELLANE PRN (16:22)
[2020-10-01 16:38] LABS: Anisocytosis Marked; Basophils % (A) 0 %; Eosinophils # (A) 0.1 k/uL (0-0.7); Eosinophils % (A) 1 %; HCT 25.6 % (39.0-53.0); HGB 7.4 gm/dL (13.0-17.5); Hypochromasia Marked; Lymphocytes # (A) 0.8 k/uL (1.0-4.8); Lymphocytes % (A) 11 %; MCH 19.1 pg (25.0-35.0); MCV 65.8 fL (80.0-100.0); Mean Platelet Volume 7.5; Microcytosis Marked; Monocytes # (A) 0.3 k/uL (0-1.0); Monocytes % (A) 4 %; Neutrophils # (A) 6.1 k/uL (1.3-7.7); Neutrophils % (A) 83 %; Platelet Count 341 k/uL (150-450); Poikilocytosis Marked; RBC 3.89 m/uL (4.30-5.90); RDW 24.3 % (11.5-15.5); WBC 7.3 k/uL (3.8-10.6)
[2020-10-01 16:49] LABS: Glucose,Whole Blood 118 mg/dL (75-99)
[2020-10-01] MEDS: D5-0.45% NACL WITH KCL 20MEQ/L 1,000 ML IV SCH (17:05)
[2020-10-01] MEDS: AMPICILLIN-SULBACTAM 3 GM in SODIUM CHLORIDE 0.9% 100 ML IVPB SCH (17:05)
[2020-10-01 17:24] LABS: Erythrocyte Sedimentation Rate 31 mm/hr (0-15)
[2020-10-01] MEDS ORDERED: VANCOMYCIN 2,500 MG in SODIUM CHLORIDE 0.9% 500 ML 500 ML IVPB ONE (20:00)
[2020-10-01 20:12] LABS: Glucose,Whole Blood 119 mg/dL (75-99)
[2020-10-01] MEDS: MORPHINE SULFATE 4 MG/ML SYRINGE IV PRN (21:18)
[2020-10-01] MEDS: ATORVASTATIN 80 MG TAB PO SCH (22:06)
[2020-10-01] MEDS: ALVIMOPAN 12 MG CAPSULE PO SCH (22:06)
[2020-10-01] MEDS: lisinopriL 20 MG TAB PO SCH (22:06)
[2020-10-01] MEDS: DULoxetine HCL 60 MG CAPSULE.DR PO SCH (22:07)
[2020-10-02] MEDS: AMPICILLIN-SULBACTAM 3 GM in SODIUM CHLORIDE 0.9% 100 ML IVPB SCH ×5 (00:15→23:35)
--- NOTE | 2020-10-02 00:57 | P.PN ---
Subjective Progress Note Date: 09/30/20 Principal diagnosis: Acute small bowel obstruction with possible mass Patient is a 60-year-old male with a known history of hypertension, hyperlipidemia, obstructive sleep apnea on CPAP at home, diabetes type 2, history of multiple DVTs currently warfarin for anticoagulation, an xiety/depression and everyday smoker and history of marijuana use was sent to hospital ER by his primary care physician due to hemoglobin level 6.3. Patient had blood work-up done at the clinic yesterday and reported hemoglobin of 6.3 today. According to his daughter at bedside. Patient has been having lethargic and very weak and pale for the past 3 days. Denied any dark-colored stools. Patient has been having nausea and episodes of vomiting. Mainly bilious. No blood in the vomitus. Patient was also having worsening abdominal pain for the past 2 to 3 days. No fever no chills. No cough or sputum production. Patient does have some exertional dyspnea. CT of the abdomen pelvis showed new proximal to mid to distal jejunal small bowel obstruction. Transition point identified left lower quadrant ports are suspicious for concentric occluding mass neoplasm but this is unusual in the small bowel. Focal severe inflammation of infection is causing the obstruction at this level. Follow-up is advised. Chest x-ray showed NG tube in the GE junction or in the gastric fundus. No acute lung disease. Heart and lungs are unchanged. Laboratory data showed lactic acid level 2.8, INR 1.9, hemoglobin 7.6, WBC 7.5, MCV 62.3 and RDW 21.9 Stool for occult blood is negative Coronavirus PCR not detected. 09/30/2020 Patient is currently resting in the bed. Hemoglobin improved to 7.4. Patient is being continued on IV hydration nothing by mouth due to small bowel obstruction. General surgery is planning for exploratory laparotomy tomorrow. Patient is being continued on antibiotics. Current medications reviewed.. Objective - Vital Signs Vital signs: Vital Signs Temp 97.7 F 09/30/20 11:19 Pulse 84 09/30/20 13:16 Resp 18 09/30/20 13:16 BP 127/64 09/30/20 11:19 Pulse Ox 96 09/30/20 11:19 Intake & Output 09/29/20 09/30/20 09/30/20 18:59 06:59 18:59 Intake Total 0 20 20 Output Total 750 Balance 0 -730 20 Weight 130.635 kg 123.5 kg Intake: IV 20 20 Invasive Line 2 20 20 Blood Product 0 Rc As-1 Unit 0 [id number] Output: Urine 750 Other: Voiding Method Urinal Urinal - Exam PHYSICAL EXAMINATION: Patient is lying in the bed comfortably, no acute distress, awake alert and ana m ented but lethargic.. HEENT: Normocephalic. Neck is supple. Pupils reactive. Nostrils clear. Oral c avity is moist. Ears reveal no drainage. Neck reveals no JVD, carotid bruits, or thyromegaly. CHEST EXAMINATION: Trachea is central. Symmetrical expansion. Lung agee clear to auscultation and percussion. CARDIAC: Normal S1, S2 with no gallops. No murmurs ABDOMEN: Soft. Bowel sounds present. No organomegaly. No abdominal bruits. Extremities: 2+ edema. No clubbing or cyanosis Neurologically awake, alert, oriented x1-2 with well-coordinated movements. No focal deficits noted Skin: No rash or skin lesions. Psychiatric: Coperative. Musculoskeletal: No joint swelling or deformity. Normal range of motion. - Labs CBC & Chem 7: 10/01/20 16:22 10/01/20 05:59 Labs: Abnormal Lab Results - Last 24 Hours (Table) 09/29/20 09/29/20 09/30/20 Range/Units 13:20 18:47 06:04 RBC (4.30-5.90) m/uL Hgb (13.0-17.5) gm/dL Hct (39.0-53.0) % MCV (80.0-100.0) fL MCH (25.0-35.0) pg MCHC (31.0-37.0) g/dL RDW (11.5-15.5) % POC Glucose (mg/dL) 105 H (75-99) mg/dL Plasma Lactic Acid Jose 2.4 H* (0.7-2.0) mmol/L Calcium (8.4-10.2) mg/dL Iron (65-175) ug/dL % Saturation (15.00-50.00) Crossmatch See Detail 09/30/20 09/30/20 Range/Units 06:31 06:31 RBC 3.97 L (4.30-5.90) m/uL Hgb 7.5 L (13.0-17.5) gm/dL Hct 25.8 L (39.0-53.0) % MCV 65.0 L (80.0-100.0) fL MCH 19.0 L (25.0-35.0) pg MCHC 29.3 L (31.0-37.0) g/dL RDW 23.8 H (11.5-15.5) % POC Glucose (mg/dL) (75-99) mg/dL Plasma Lactic Acid Jose (0.7-2.0) mmol/L Calcium 8.3 L (8.4-10.2) mg/dL Iron 11 L (65-175) ug/dL % Saturation 3.12 L (15.00-50.00) Crossmatch Assessment and Plan Assessment: Symptomatic anemia Microcytic iron deficiency anemia Lactic acidosis Acute small bowel obstruction with possible mass as per CT report History of multiple DVTs currently on anticoagulation with Coumadin Obstructive sleep apnea on CPAP at home Hypertension Hyperlipidemia Diabetes type 2 [id number] Anxiety/depression Currently everyday smoker History of marijuana use Diabetic peripheral neuropathy DVT prophylaxis patient is on warfarin. Plan: Patient will be continued on IV hydration nothing by mouth. NG tube was placed and patient will be continued on IV PPI and monitor H&H. Patient was transfused with 1 unit of PRBC. Continue with insulin sliding scale and home medications. GI and general surgery is following. Expiratory laparotomy tomorrow. Further recommendations based on clinical course. Discussed with his daughter at bedside in detail. Prognosis guarded at this time. Time with Patient: Greater than 30
--- NOTE | 2020-10-02 01:03 | P.PN ---
Subjective Progress Note Date: 10/01/20 Principal diagnosis: Acute small bowel obstruction with possible mass Patient is a 60-year-old male with a known history of hypertension, hyperlipidemia, obstructive sleep apnea on CPAP at home, diabetes type 2, history of multiple DVTs currently warfarin for anticoagulation, an xiety/depression and everyday smoker and history of marijuana use was sent to hospital ER by his primary care physician due to hemoglobin level 6.3. Patient had blood work-up done at the clinic yesterday and reported hemoglobin of 6.3 today. According to his daughter at bedside. Patient has been having lethargic and very weak and pale for the past 3 days. Denied any dark-colored stools. Patient has been having nausea and episodes of vomiting. Mainly bilious. No blood in the vomitus. Patient was also having worsening abdominal pain for the past 2 to 3 days. No fever no chills. No cough or sputum production. Patient does have some exertional dyspnea. CT of the abdomen pelvis showed new proximal to mid to distal jejunal small bowel obstruction. Transition point identified left lower quadrant ports are suspicious for concentric occluding mass neoplasm but this is unusual in the small bowel. Focal severe inflammation of infection is causing the obstruction at this level. Follow-up is advised. Chest x-ray showed NG tube in the GE junction or in the gastric fundus. No acute lung disease. Heart and lungs are unchanged. Laboratory data showed lactic acid level 2.8, INR 1.9, hemoglobin 7.6, WBC 7.5, MCV 62.3 and RDW 21.9 Stool for occult blood is negative Coronavirus PCR not detected. 09/30/2020 Patient is currently resting in the bed. Hemoglobin improved to 7.4. Patient is being continued on IV hydration nothing by mouth due to small bowel obstruction. General surgery is planning for exploratory laparotomy tomorrow. Patient is being continued on antibiotics. 10/01/2020 Patient was admitted to the hospital due to small bowel obstruction and possible mass and atelectasis anemia.. Status post exploratory laparotomy today with removal of infected mesh Small bowel resection Lysis of extensive adhesions Repair of incisional hernia. Patient is afebrile. Pain is fairly controlled. No nausea or vomiting. Hemoglobin is 7.4 this morning. Patient is being continued antibiotics in the form of Unasyn. Patient is iron deficient and low normal B12 level. Current medications reviewed.. Objective - Vital Signs Vital signs: Vital Signs Temp 98.4 F 10/01/20 14:44 Pulse 74 10/01/20 15:45 Resp 16 10/01/20 15:45 BP 153/86 10/01/20 15:45 Pulse Ox 94 L 10/01/20 15:45 Intake & Output 09/30/20 10/01/20 10/01/20 17:59 06:59 18:59 Intake Total 1210 Output Total 300 Balance 910 Weight Intake: IV 1210 Invasive Line 2 10 Output: Urine 200 Estimated Blood Loss 100 Other: Voiding Method Urinal # Voids - Exam PHYSICAL EXAMINATION: Patient is lying in the bed comfortably, no acute distress, awake alert and oriented. drowsy.. HEENT: Normocephalic. Neck is supple. Pupils reactive. Nostrils clear. Oral cavity is moist. Ears reveal no drainage. Neck reveals no JVD, carotid bruits, or thyromegaly. CHEST EXAMINATION: Trachea is central. Symmetrical expansion. Lung agee clear to auscultation and percussion. CARDIAC: Normal S1, S2 with no gallops. No murmurs ABDOMEN: Soft. Bowel sounds dimishshed. surgical site bandaged.. No organomegaly. No abdominal bruits. Extremities: 2+ edema. No clubbing or cyanosis Neurologically awake, alert, oriented x1-2 with well-coordinated movements. No focal deficits noted Skin: No rash or skin lesions. Psychiatric: Coperative. Musculoskeletal: No joint swelling or deformity. Normal range of motion. - Labs CBC & Chem 7: 10/01/20 16:22 10/01/20 05:59 Labs: Abnormal Lab Results - Last 24 Hours (Table) 09/30/20 10/01/20 10/01/20 Range/Units 19:48 05:59 05:59 RBC 3.90 L (4.30-5.90) m/uL Hgb 7.4 L (13.0-17.5) gm/dL Hct 25.7 L (39.0-53.0) % MCV 65.9 L (80.0-100.0) fL MCH 18.9 L (25.0-35.0) pg MCHC 28.8 L (31.0-37.0) g/dL RDW 24.0 H (11.5-15.5) % POC Glucose (mg/dL) 100 H (75-99) mg/dL Calcium 8.1 L (8.4-10.2) mg/dL 10/01/20 10/01/20 Range/Units 10:54 13:14 RBC (4.30-5.90) m/uL Hgb (13.0-17.5) gm/dL Hct (39.0-53.0) % MCV (80.0-100.0) fL MCH (25.0-35.0) pg MCHC (31.0-37.0) g/dL RDW (11.5-15.5) % POC Glucose (mg/dL) 106 H 150 H (75-99) mg/dL Calcium (8.4-10.2) mg/dL Assessment and Plan Assessment: Acute small bowel obstruction with possible mass as per CT report. s/p exp laparotomy Symptomatic anemia Microcytic iron deficiency anemia Lactic acidosis History of multiple DVTs currently on anticoagulation with Coumadin Obstructive sleep apnea on CPAP at home Hypertension Hyperlipidemia Diabetes type 2 [id number] Anxiety/depression Currently everyday smoker History of marijuana use Diabetic peripheral neuropathy DVT prophylaxis patient is on warfarin. Plan: Patient will be continued on IV hydration nothing by mouth. NG tube was placed and patient will be continued on IV PPI and monitor H&H. Patient was transfused with 1 unit of PRBC. Continue with insulin sliding scale and home medications. GI and general surgery is following. s/p Exploratory laparotomy . Further recommendations based on clinical course. Prognosis guarded at this time. Time with Patient: Greater than 30
[2020-10-02] MEDS: MORPHINE SULFATE 4 MG/ML SYRINGE IV PRN ×2 (02:29→09:05)
[2020-10-02] MEDS: traZODone HCL 50 MG TAB PO SCH ×2 (02:31→21:42)
[2020-10-02] MEDS: HYDROCORTISONE 1% CREAM 30 GM TUBE TOPICAL SCH ×3 (02:31→21:43)
[2020-10-02] MEDS: D5-0.45% NACL WITH KCL 20MEQ/L 1,000 ML IV SCH ×4 (02:31→21:43)
[2020-10-02] MEDS: HYDROmorphone 1 MG/ML 1 ML SYRINGE IVP PRN (05:35)
[2020-10-02 05:55] LABS: Glucose,Whole Blood 177 mg/dL (75-99)
--- NOTE | 2020-10-02 06:22 | CONS ---
CONSULTATION DATE OF SERVICE: 10/01/2020 REASON FOR CONSULTATION: Infected abdominal mesh. HISTORY OF PRESENT ILLNESS: The patient is a 60-year-old male admitted to the hospital on September 29, 2020. The patient presented to hospital. Apparently the patient noticed to have a low hemoglobin on outpatient testing and hemoglobin was 6.3. The patient apparently has been complaining of feeling weak and tired, no energy in this patient who did have multiple abdominal surgeries. The patient denies having any black stools. No nausea, no vomiting. Has been complaining of lower abdominal pain, more of a dull aching at times colicky, 5 to 6/10 and no radiation with nausea but no vomiting and no diarrhea or constipation. Patient on presentation to the hospital was afebrile and no fever has been recorded during this admission. The patient also has a normal white count. The patient did have a CT of abdomen and pelvis that was done on admission, which did shows distal jejunal small-bowel obstruction. The patient was taken to the OR today and is status post laparotomy. 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 The patient is status post removal of infected mesh, small-bowel resection and lysis of adhesion and removal of incisional hernia. Infectious Disease was consulted for management of antibiotic therapy. REVIEW OF SYSTEMS: Positive points have been mentioned in HPI. Rest of systems are negative. PAST MEDICAL HISTORY: Diabetes mellitus, DVT, hypertension, hyperlipidemia, sleep apnea, and incisional hernia. PAST SURGICAL HISTORY: Umbilical hernia surgery and previous history of MRSA infection. SOCIAL HISTORY: The patient is a current everyday smoker. Does admit to marijuana use. No drinking. FAMILY HISTORY: Mother history of diabetes, hyperlipidemia, and dementia. ALLERGIES: No known drug allergies. MEDICATIONS: The patient is currently on Tylenol, Ventolin, Lipitor, Cepacol lozenges, Benadryl, Cymbalta, Neurontin, hydrocortisone, Dilaudid, NovoLog, Toradol, Zestril, melatonin, morphine sulfate, Narcan, Zofran, Protonix. PHYSICAL EXAMINATION: VITAL SIGNS: Blood pressure 136/74 with a pulse of 69, temperature 97.8. He is 94% on 2 L nasal cannula. GENERAL DESCRIPTION: A Middle-aged male lying in bed in no distress. No tachypnea or accessory muscles of respiration use. HEENT: Shows pallor, no scleral icterus. Oral mucous membranes are dry. NECK: Trachea central, no thyromegaly. LUNGS: Unlabored breathing, clear to auscultation anteriorly. No wheeze or crackle. HEART: S1, S2. Regular rate and rhythm. ABDOMEN: Soft, mildly tender. No guarding or rigidity. EXTREMITIES: No edema of the feet. SKIN: No rash or masses palpable. NEUROLOGICAL: Patient is awake, alert, oriented x3. Mood and affect normal. LAB: Hemoglobin 7.4, white count 7.3, BUN of 11, creatinine 0.97. Electrolytes have been normal. Abdominal cultures currently pending. DIAGNOSTIC IMPRESSION: Patient admitted to the hospital with anemia and abdominal pain in this patient who did have evidence of small-bowel obstruction and infected mesh, status post small bowel resection and removal of the infected mesh, previous history of MRSA infection. Could be related to MRSA or enteric gram-negative pathogen. PLAN: 1. Blood cultures x2. 2. Start the patient on Unasyn 3 grams q.6 hours and vancomycin, Pharmacy to dose. 3. We will follow on clinical condition and culture to further adjust medication if needed. Thank you for this consultation. Will follow this patient along with you. MMODL / IJN: [id number] /
[2020-10-02] MEDS: INSULIN ASPART (NovoLOG) 100 UNIT/ML VIAL SQ SCH ×4 (06:56→21:43)
[2020-10-02 07:04] LABS: African American GFR (CKD) >90 (>60 ml/min/1.73 sqM); Anion Gap 6 mmol/L; Blood Urea Nitrogen 6 mg/dL (9-20); Carbon Dioxide 25 mmol/L (22-30); Chloride 105 mmol/L (98-107); Glucose 150 mg/dL (74-99); Non-African American GFR(CKD) >90 (>60 ml/min/1.73 sqM); Potassium 3.8 mmol/L (3.5-5.1); Sodium 136 mmol/L (137-145)
[2020-10-02 07:13] LABS: Anisocytosis Marked; Basophils % (A) 0 %; Eosinophils # (A) 0.2 k/uL (0-0.7); Eosinophils % (A) 3 %; HCT 28.2 % (39.0-53.0); HGB 7.9 gm/dL (13.0-17.5); Hypochromasia Marked; Lymphocytes % (A) 13 %; MCH 18.7 pg (25.0-35.0); MCHC 27.9 g/dL (31.0-37.0); MCV 66.9 fL (80.0-100.0); Mean Platelet Volume 6.8; Microcytosis Marked; Monocytes # (A) 0.5 k/uL (0-1.0); Monocytes % (A) 6 %; Neutrophils # (A) 5.7 k/uL (1.3-7.7); Neutrophils % (A) 77 %; Platelet Count 306 k/uL (150-450); Poikilocytosis Marked; RBC 4.22 m/uL (4.30-5.90); RDW 24.3 % (11.5-15.5); WBC 7.4 k/uL (3.8-10.6)
[2020-10-02] MEDS: SODIUM CHLORIDE 0.9% 1,000 ML IV SCH (07:38)
[2020-10-02] MEDS: VANCOMYCIN 2,000 MG in SODIUM CHLORIDE 0.9% 500 ML 500 ML IVPB SCH ×2 (08:41→21:42)
[2020-10-02] MEDS: CYANOCOBALAMIN 500 MCG TAB PO SCH (08:49)
[2020-10-02] MEDS: PANTOPRAZOLE 40 MG/10 ML VIAL IVP SCH ×2 (08:49→21:42)
[2020-10-02] MEDS: GABAPENTIN 300 MG CAP PO SCH ×3 (08:49→21:42)
[2020-10-02] MEDS: ALVIMOPAN 12 MG CAPSULE PO SCH ×2 (08:49→21:42)
[2020-10-02] MEDS: diphenhydrAMINE 25 MG CAP PO SCH ×2 (08:49→21:42)
[2020-10-02] MEDS ORDERED: SODIUM FERRIC GLUCONAT-SUCROSE 125 MG in SODIUM CHLORIDE 0.9% 100 ML IVPB ONE (09:00)
--- NOTE | 2020-10-02 10:33 | P.PN ---
Subjective from records: Patient is a 60-year-old male with a known history of hypertension, hyperlipidemia, obstructive sleep apnea on CPAP at home, diabetes type 2, history of multiple DVTs currently warfarin for anticoagulation, anxiety/depression and everyday smoker and history of marijuana use was sent to hospital ER by his primary care physician due to hemoglobin level 6.3. Patient had blood work-up done at the clinic yesterday and reported hemoglobin of 6.3 today. According to his daughter at bedside. Patient has been having lethargic and very weak and pale for the past 3 days. Denied any dark-colored stools. Patient has been having nausea and episodes of vomiting. Mainly bilious. No blood in the vomitus. Patient was also having worsening abdominal pain for the past 2 to 3 days. No fever no chills. No cough or sputum production. Patient does have some exertional dyspnea. CT of the abdomen pelvis showed new proximal to mid to distal jejunal small bowel obstruction. Transition point identified left lower quadrant ports are fisher spicious for concentric occluding mass neoplasm but this is unusual in the small bowel. Focal severe inflammation of infection is causing the obstruction at this level. Follow-up is advised. Chest x-ray showed NG tube in the GE junction or in the gastric fundus. No acute lung disease. Heart and lungs are unchanged. Laboratory data showed lactic acid level 2.8, INR 1.9, hemoglobin 7.6, WBC 7.5, MCV 62.3 and RDW 21.9 Stool for occult blood is negative Coronavirus PCR not detected. 09/30/2020 Patient is currently resting in the bed. Hemoglobin improved to 7.4. Patient is being continued on IV hydration nothing by mouth due to small bowel obstruction. General surgery is planning for exploratory laparotomy tomorrow. Patient is being continued on antibiotics. 10/01/2020 Patient was admitted to the hospital due to small bowel obstruction and possible mass and atelectasis anemia.. Status post exploratory laparotomy today with removal of infected mesh Small bowel resection Lysis of extensive adhesions Repair of incisional hernia. Patient is afebrile. Pain is fairly controlled. No nausea or vomiting. Hemoglobin is 7.4 this morning. Patient is being continued antibiotics in the f orm of Unasyn. Patient is iron deficient and low normal B12 level. 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 Also he had infected hernia mesh. He underwent exploratory laparotomy and removal of the infected mesh and small bowel resection yesterday on 10/01/2020. Today is postoperative day #1. He is lying in bed comfortable not in distress although he is complaining of from abdominal pain which is expected at surgical site. The wound is clean and closed. Wound VAC is in place. NG tube is in place. The patient remains nothing by mouth, no nausea vomiting. And he passing gas but no bowel movement. No chest pain or dyspnea., No other complaints. He is actually getting D5 half-normal saline at 1 25 mL/h. Ulcers covered with Unasyn and IV vancomycin as per the ID team recommendation also he is on Protonix IV twice daily patient is with history of multiple DVT on Coumadin at home, patient told me he was taking none milligrams Friday to Friday and 10 mg on Friday, currently he is off Coumadin, will resume Coumadin was cleared by surgery team Review of systems CONSTITUTIONAL: No fever, no malaise, no fatigue. HEENT: No recent visual problems or hearing problems. Denied any sore throat. CARDIOVASCULAR: No orthopnea, PND, no palpitations, no syncope. PULMONARY: No shortness of breath, no cough, no hemoptysis. GASTROINTESTINAL: No diarrhea, no nausea, no vomiting. Normoactive bowel sounds. NEUROLOGICAL: No headaches, no weakness, no numbness. Active Medications Generic Name Dose Route Start Last Admin Trade Name Freq PRN Reason Stop Dose Admin Acetaminophen 650 mg 09/29/20 19:49 Acetaminophen Tab 325 Mg Tab PO Q6HR PRN Fever and/ or Pain Albuterol Sulfate 2.5 mg 09/29/20 19:46 Albuterol Nebulized 2.5 Mg/3 Ml INHALATION RT-Q6H PRN Shortness Of Breath Alvimopan 12 mg 10/01/20 21:00 10/02/20 08:49 Alvimopan 12 Mg Capsule PO 10/08/20 09:01 12 mg BID ASIA Administration Atorvastatin Calcium 80 mg 09/29/20 21:00 10/01/20 22:06 Atorvastatin 80 Mg Tab PO 80 mg HS ASIA Administration Benzocaine/Menthol 1 each 10/01/20 13:07 Benzocaine/Menthol Lozeng 1 Each Lozenge MUCOUS MEM Q1HR PRN Sore Throat Cyanocobalamin 1,000 mcg 10/02/20 09:00 10/02/20 08:49 Cyanocobalamin 500 Mcg Tab PO 1,000 mcg DAILY ASIA Administration Diphenhydramine HCl 25 mg 09/29/20 21:00 10/02/20 08:49 Diphenhydramine 25 Mg Cap PO 25 mg BID ASIA Administration Duloxetine HCl 60 mg 09/29/20 21:00 10/01/20 22:07 Duloxetine Hcl 60 Mg Capsule.Dr PO Not Given HS ASIA Gabapentin 300 mg 09/29/20 22:00 10/02/20 08:49 Gabapentin 300 Mg Cap PO 300 mg TID ASIA Administration Hydrocortisone 1 applic 09/29/20 21:00 10/02/20 08:49 Hydrocortisone 1% Cream 30 Gm Tube TOPICAL 1 applic BID ASIA Administration Hydromorphone HCl 1 mg 10/01/20 13:07 10/02/20 05:35 Hydromorphone 1 Mg/Ml 1 Ml Syringe IVP 1 mg Q3HR PRN Administration Severe Pain Sodium Chloride 1,000 mls @ 80 mls/hr 09/29/20 15:30 10/02/20 07:38 Saline 0.9% IV Not Given .[id number] ASIA Potassium Chloride/Dextrose/Sod Cl 1,000 mls @ 125 mls/hr 10/01/20 14:00 10/02/20 07:39 D5%-1/2ns-Kcl 20 Meq/L Iv Solution IV Not Given .Q8H ASIA Ampicillin Sodium/Sulbactam 100 mls @ 200 mls/hr 10/01/20 18:00 10/02/20 05:39 Sodium 3 gm/ Sodium Chloride IVPB 200 mls/hr Q6HR ASIA Administration Vancomycin HCl 2,000 mg/ 500 mls @ 167 mls/hr 10/02/20 08:00 10/02/20 08:41 Sodium Chloride IVPB 167 mls/hr Q12H ASIA Administration Insulin Aspart 0 unit 09/29/20 21:00 10/02/20 06:56 Insulin Aspart (Novolog) 100 Unit/Ml Vial SQ 3 unit ACHS ASIA Administration Protocol Ketorolac Tromethamine 15 mg 10/01/20 13:07 Ketorolac 15 Mg/Ml 1 Ml Vial IVP 10/03/20 13:08 Q6HR PRN Mild to Moderate Pain Lisinopril 20 mg 09/29/20 21:00 10/01/20 22:06 Lisinopril 20 Mg Tab PO 20 mg HS ASIA Administration Melatonin 6 mg 09/29/20 19:57 Melatonin 3 Mg Tablet PO HS PRN Insomnia Morphine Sulfate 4 mg 09/29/20 15:22 10/02/20 09:05 Morphine Sulfate 4 Mg/Ml Syringe IV 4 mg Q4HR PRN Administration Severe Pain Naloxone HCl 0.2 mg 09/29/20 15:22 Naloxone 0.4 Mg/Ml 1 Ml Vial IV Q2M PRN Opioid Reversal Ondansetron HCl 4 mg 09/29/20 15:22 Ondansetron 4 Mg/2 Ml Vial IVP Q8HR PRN Nausea And Vomiting Pantoprazole Sodium 40 mg 09/29/20 21:00 10/02/20 08:49 Pantoprazole 40 Mg/10 Ml Vial IVP 40 mg BID ASIA Administration Trazodone HCl 75 mg 09/29/20 21:00 10/02/20 02:31 Trazodone Hcl 50 Mg Tab PO Not Given HS [facility], [facility] Objective - Vital Signs Vital signs: Vital Signs Temp 98.0 F 10/02/20 08:39 Pulse 86 10/02/20 08:39 Resp 18 10/02/20 08:39 BP 132/73 10/02/20 08:39 Pulse Ox 97 10/02/20 08:39 Intake & Output 10/01/20 10/02/20 10/02/20 18:59 06:59 18:59 Intake Total 1210 Output Total 700 2075 Balance 510 -2075 Weight 142.5 kg Intake: IV 1210 Invasive Line 2 10 Output: Urine 200 1275 Stool 400 800 Estimated Blood Loss 100 Other: Voiding Method Indwelling Catheter Indwelling Catheter - Exam -GENERAL: The patient is alert and oriented x3, not in any acute distress. obese HEENT: Pupils are round and equally reacting to light. EOMI. No scleral icterus. No conjunctival pallor. Normocephalic, atraumatic. No pharyngeal erythema. No thyromegaly. CARDIOVASCULAR: S1 and S2 present. No murmurs, rubs, or gallops. PULMONARY: Chest is clear to auscultation, no wheezing or crackles. -ABDOMEN: Soft, nontender, nondistended, normoactive bowel sounds. No palpable organomegaly. midline vertical incision below the umbilicus, wound is clean and close with no discharge. Umbilical site wound VAC is in place MUSCULOSKELETAL: No joint swelling or deformity. EXTREMITIES: No cyanosis, clubbing, or pedal edema. NEUROLOGICAL: Gross neurological examination did not reveal any focal deficits. SKIN: No rashes. no petechiae. - Labs CBC & Chem 7: 10/02/20 06:20 10/02/20 06:20 Labs: Abnormal Lab Results - Last 24 Hours (Table) 10/01/20 10/01/20 10/01/20 Range/Units 10:54 13:14 16:22 RBC 3.89 L (4.30-5.90) m/uL Hgb 7.4 L (13.0-17.5) gm/dL Hct 25.6 L (39.0-53.0) % MCV 65.8 L (80.0-100.0) fL MCH 19.1 L (25.0-35.0) pg MCHC 29.0 L (31.0-37.0) g/dL RDW 24.3 H (11.5-15.5) % Lymphocytes # 0.8 L (1.0-4.8) k/uL ESR 31 H (0-15) mm/hr Sodium (137-145) mmol/L BUN (9-20) mg/dL Glucose (74-99) mg/dL POC Glucose (mg/dL) 106 H 150 H (75-99) mg/dL Calcium (8.4-10.2) mg/dL C-Reactive Protein (<10.0) mg/L Procalcitonin (0.02-0.09) ng/mL 10/01/20 10/01/20 10/01/20 Range/Units 16:48 18:00 20:10 RBC (4.30-5.90) m/uL Hgb (13.0-17.5) gm/dL Hct (39.0-53.0) % MCV (80.0-100.0) fL MCH (25.0-35.0) pg MCHC (31.0-37.0) g/dL RDW (11.5-15.5) % Lymphocytes # (1.0-4.8) k/uL ESR (0-15) mm/hr Sodium (137-145) mmol/L BUN (9-20) mg/dL Glucose (74-99) mg/dL POC Glucose (mg/dL) 118 H 119 H (75-99) mg/dL Calcium (8.4-10.2) mg/dL C-Reactive Protein 60.1 H (<10.0) mg/L Procalcitonin (0.02-0.09) ng/mL 10/02/20 10/02/20 10/02/20 Range/Units 05:54 06:20 06:20 RBC 4.22 L (4.30-5.90) m/uL Hgb 7.9 L (13.0-17.5) gm/dL Hct 28.2 L (39.0-53.0) % MCV 66.9 L (80.0-100.0) fL MCH 18.7 L (25.0-35.0) pg MCHC 27.9 L (31.0-37.0) g/dL RDW 24.3 H (11.5-15.5) % Lymphocytes # (1.0-4.8) k/uL ESR (0-15) mm/hr Sodium (137-145) mmol/L BUN (9-20) mg/dL Glucose (74-99) mg/dL POC Glucose (mg/dL) 177 H (75-99) mg/dL Calcium (8.4-10.2) mg/dL C-Reactive Protein (<10.0) mg/L Procalcitonin 0.18 H (0.02-0.09) ng/mL 10/02/20 Range/Units 06:20 RBC (4.30-5.90) m/uL Hgb (13.0-17.5) gm/dL Hct (39.0-53.0) % MCV (80.0-100.0) fL MCH (25.0-35.0) pg MCHC (31.0-37.0) g/dL RDW (11.5-15.5) % Lymphocytes # (1.0-4.8) k/uL ESR (0-15) mm/hr Sodium 136 L (137-145) mmol/L BUN 6 L (9-20) mg/dL Glucose 150 H (74-99) mg/dL POC Glucose (mg/dL) (75-99) mg/dL Calcium 8.0 L (8.4-10.2) mg/dL C-Reactive Protein (<10.0) mg/L Procalcitonin (0.02-0.09) ng/mL Microbiology - Last 24 Hours (Table) 10/01/20 12:36 Gram Stain - Preliminary Other - Other Wound Culture - Preliminary 10/01/20 12:36 Anaerobic Culture - Preliminary Other - Other Assessment and Plan Assessment: -Acute small bowel obstruction with possible mass , infected hernia meshas per CT report. s/p exp laparotomy, infected mesh removal and small bowel resection Microcytic iron deficiency anemia Lactic acidosis, back to normal History of multiple DVTs currently on anticoagulation with Coumadin Obstructive sleep apnea on CPAP at home Hypertension Hyperlipidemia Diabetes type 2 [id number] Anxiety/depression Currently everyday smoker History of marijuana use Diabetic peripheral neuropathy Plan: this is a pleasant 60 years old male status post exploratory laparotomy, bowel resection andInfected mesh removal. Continue with antibiotic Unasyn and IV vancomycin as per ID team. Continue with bowel rest, resume diet as per surgery team when ready. Pain management.gentle IV hydration Follow-up biopsy results. follow-up recommendation by GI and surgery teams and ID team's. Labs and medication were reviewed.. Continue same treatment. Continue with symptomatic treatment. Resume home medication. Monitor lytes and vitals. DVT and GI prophylaxis. Further recommendations as per clinical course of the patient DVT prophylaxis: Subcutaneous heparin, resume Coumadin per surgery team GI Prophylaxis: Pepcid PT/OT: Pending
[2020-10-02 12:39] LABS: Glucose,Whole Blood 144 mg/dL (75-99)
--- NOTE | 2020-10-02 12:59 | P.PN ---
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 He reports that his pain is controlled. He is complaining of a headache. He has been passing gas. Denies any bowel movement. He does have wound VAC in place. Patient has NG tube with no output. Afebrile WBC 7.4 Hgb 7.9 PHYSICAL EXAM: VITAL SIGNS: Reviewed. GENERAL: Well-developed in no acute distress. HEENT: No sclera icterus. Extraocular movements grossly intact. Moist buccal mucosa. Head is atraumatic, normocephalic. ABDOMEN: Soft. Nondistended. Incision clean dry and intact with wound VAC in place NEUROLOGIC: Alert and oriented. Cranial nerves II through XII grossly intact. ASSESSMENT: 1. 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 Signing provider agrees with the documented findings, assessment, and plan of care. Objective - Vital Signs Vital signs: Vital Signs Temp 98.3 F 10/02/20 11:26 Pulse 88 10/02/20 11:26 Resp 16 10/02/20 11:26 BP 143/68 10/02/20 11:26 Pulse Ox 95 10/02/20 11:26 Intake & Output 10/01/20 10/02/20 10/02/20 18:59 06:59 18:59 Intake Total 1210 Output Total 700 2075 Balance 510 -2075 Weight 142.5 kg Intake: IV 1210 Invasive Line 2 10 Output: Urine 200 1275 Stool 400 800 Estimated Blood Loss 100 Other: Voiding Method Indwelling Catheter Indwelling Catheter Indwelling Catheter - Labs CBC & Chem 7: 10/02/20 06:20 10/02/20 06:20 Labs: Abnormal Lab Results - Last 24 Hours (Table) 10/01/20 10/01/20 10/01/20 Range/Units 13:14 16:22 16:48 RBC 3.89 L (4.30-5.90) m/uL Hgb 7.4 L (13.0-17.5) gm/dL Hct 25.6 L (39.0-53.0) % MCV 65.8 L (80.0-100.0) fL MCH 19.1 L (25.0-35.0) pg MCHC 29.0 L (31.0-37.0) g/dL RDW 24.3 H (11.5-15.5) % Lymphocytes # 0.8 L (1.0-4.8) k/uL ESR 31 H (0-15) mm/hr Sodium (137-145) mmol/L BUN (9-20) mg/dL Glucose (74-99) mg/dL POC Glucose (mg/dL) 150 H 118 H (75-99) mg/dL Calcium (8.4-10.2) mg/dL C-Reactive Protein (<10.0) mg/L Procalcitonin (0.02-0.09) ng/mL 10/01/20 10/01/20 10/02/20 Range/Units 18:00 20:10 05:54 RBC (4.30-5.90) m/uL Hgb (13.0-17.5) gm/dL Hct (39.0-53.0) % MCV (80.0-100.0) fL MCH (25.0-35.0) pg MCHC (31.0-37.0) g/dL RDW (11.5-15.5) % Lymphocytes # (1.0-4.8) k/uL ESR (0-15) mm/hr Sodium (137-145) mmol/L BUN (9-20) mg/dL Glucose (74-99) mg/dL POC Glucose (mg/dL) 119 H 177 H (75-99) mg/dL Calcium (8.4-10.2) mg/dL C-Reactive Protein 60.1 H (<10.0) mg/L Procalcitonin (0.02-0.09) ng/mL 10/02/20 10/02/2010/02/21 Range/Units 06:20 06:20 06:20 RBC 4.22 L (4.30-5.90) m/uL Hgb 7.9 L (13.0-17.5) gm/dL Hct 28.2 L (39.0-53.0) % MCV 66.9 L (80.0-100.0) fL MCH 18.7 L (25.0-35.0) pg MCHC 27.9 L (31.0-37.0) g/dL RDW 24.3 H (11.5-15.5) % Lymphocytes # (1.0-4.8) k/uL ESR (0-15) mm/hr Sodium 136 L (137-145) mmol/L BUN 6 L (9-20) mg/dL Glucose 150 H (74-99) mg/dL POC Glucose (mg/dL) (75-99) mg/dL Calcium 8.0 L (8.4-10.2) mg/dL C-Reactive Protein (<10.0) mg/L Procalcitonin 0.18 H (0.02-0.09) ng/mL 10/02/20 Range/Units 12:35 RBC (4.30-5.90) m/uL Hgb (13.0-17.5) gm/dL Hct (39.0-53.0) % MCV (80.0-100.0) fL MCH (25.0-35.0) pg MCHC (31.0-37.0) g/dL RDW (11.5-15.5) % Lymphocytes # (1.0-4.8) k/uL ESR (0-15) mm/hr Sodium (137-145) mmol/L BUN (9-20) mg/dL Glucose (74-99) mg/dL POC Glucose (mg/dL) 144 H (75-99) mg/dL Calcium (8.4-10.2) mg/dL C-Reactive Protein (<10.0) mg/L Procalcitonin (0.02-0.09) ng/mL Microbiology - Last 24 Hours (Table) 10/01/20 12:36 Gram Stain - Preliminary Other - Other Wound Culture - Preliminary 10/01/20 12:36 Anaerobic Culture - Preliminary Other - Other
--- NOTE | 2020-10-02 15:52 | P.PN ---
Subjective Progress Note Date: 10/02/20 Principal diagnosis: Severe symptomatic microcytic hypochromic anemia and abdominal pain [place] 60-year-old white male patient admitted to the hospital with acute small bowel obstruction. He presented with abdominal pain, nausea, and vomiting for 2 days prior to hospitalization. He was also noted to have severe symptomatic anemia with a hemoglobin of 7.6 requiring 1 unit of PRBC transfusion. Yesterday he underwent exploratory laparotomy amount was noted to have a 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, infected hernia mesh, incisional hernia, and adhesions. Today he is seen and evaluated sitting up at the bedside. He has NG tube in place. He states he has abdominal pain. No nausea or vomiting. Objective - Vital Signs Vital signs: Vital Signs Temp 98.3 F 10/02/20 11:26 Pulse 88 10/02/20 13:10 Resp 16 10/02/20 13:10 BP 143/68 10/02/20 11:26 Pulse Ox 95 10/02/20 11:26 Intake & Output 10/01/20 10/02/20 10/02/20 18:59 06:59 18:59 Intake Total 1210 Output Total 700 2075 Balance 510 -2075 Weight 142.5 kg Intake: IV 1210 Invasive Line 2 10 Output: Urine 200 1275 Stool 400 800 Estimated Blood Loss 100 Other: Voiding Method Indwelling Catheter Indwelling Catheter Indwelling Catheter - Exam General appearance: The patient is alert, oriented, appears in no acute distress. HET: Head is normocephalic and atraumatic. Conjunctiva pink. Sclera anicteric. NG tube in place. Neck: Supple without lymphadenopathy. Abdomen: Soft, surgical incision clean dry and intact, nondistended with bowel sounds. No guarding or rigidity. Extremities: Normal skin color and turgor. No pedal edema Skin: No rashes, no jaundice Neurological: No focal deficits. Alert and oriented 3. - Labs CBC & Chem 7: 10/02/20 06:20 10/02/20 06:20 Labs: Abnormal Lab Results - Last 24 Hours (Table) 09/30/20 10/01/20 10/01/20 Range/Units 06:31 16:22 16:48 RBC 3.89 L (4.30-5.90) m/uL Hgb 7.4 L (13.0-17.5) gm/dL Hct 25.6 L (39.0-53.0) % MCV 65.8 L (80.0-100.0) fL MCH 19.1 L (25.0-35.0) pg MCHC 29.0 L (31.0-37.0) g/dL RDW 24.3 H (11.5-15.5) % Lymphocytes # 0.8 L (1.0-4.8) k/uL ESR 31 H (0-15) mm/hr Sodium (137-145) mmol/L BUN (9-20) mg/dL Glucose (74-99) mg/dL POC Glucose (mg/dL) 118 H (75-99) mg/dL Calcium (8.4-10.2) mg/dL C-Reactive Protein (<10.0) mg/L RBC Folate 1,386 H (280 - 791) ng/mL Procalcitonin (0.02-0.09) ng/mL 10/01/20 10/01/20 10/02/20 Range/Units 18:00 20:10 05:54 RBC (4.30-5.90) m/uL Hgb (13.0-17.5) gm/dL Hct (39.0-53.0) % MCV (80.0-100.0) fL MCH (25.0-35.0) pg MCHC (31.0-37.0) g/dL RDW (11.5-15.5) % Lymphocytes # (1.0-4.8) k/uL ESR (0-15) mm/hr Sodium (137-145) mmol/L BUN (9-20) mg/dL Glucose (74-99) mg/dL POC Glucose (mg/dL) 119 H 177 H (75-99) mg/dL Calcium (8.4-10.2) mg/dL C-Reactive Protein 60.1 H (<10.0) mg/L RBC Folate (280 - 791) ng/mL Procalcitonin (0.02-0.09) ng/mL 10/02/20 10/02/20 10/02/20 Range/Units 06:20 06:20 06:20 RBC 4.22 L (4.30-5.90) m/uL Hgb 7.9 L (13.0-17.5) gm/dL Hct 28.2 L (39.0-53.0) % MCV 66.9 L (80.0-100.0) fL MCH 18.7 L (25.0-35.0) pg MCHC 27.9 L (31.0-37.0) g/dL RDW 24.3 H (11.5-15.5) % Lymphocytes # (1.0-4.8) k/uL ESR (0-15) mm/hr Sodium 136 L (137-145) mmol/L BUN 6 L (9-20) mg/dL Glucose 150 H (74-99) mg/dL POC Glucose (mg/dL) (75-99) mg/dL Calcium 8.0 L (8.4-10.2) mg/dL C-Reactive Protein (<10.0) mg/L RBC Folate (280 - 791) ng/mL Procalcitonin 0.18 H (0.02-0.09) ng/mL 10/02/20 Range/Units 12:35 RBC (4.30-5.90) m/uL Hgb (13.0-17.5) gm/dL Hct (39.0-53.0) % MCV (80.0-100.0) fL MCH (25.0-35.0) pg MCHC (31.0-37.0) g/dL RDW (11.5-15.5) % Lymphocytes # (1.0-4.8) k/uL ESR (0-15) mm/hr Sodium (137-145) mmol/L BUN (9-20) mg/dL Glucose (74-99) mg/dL POC Glucose (mg/dL) 144 H (75-99) mg/dL Calcium (8.4-10.2) mg/dL C-Reactive Protein (<10.0) mg/L RBC Folate (280 - 791) ng/mL Procalcitonin (0.02-0.09) ng/mL Microbiology - Last 24 Hours (Table) 10/01/20 12:36 Gram Stain - Preliminary Other - Other Wound Culture - Preliminary 10/01/20 12:36 Anaerobic Culture - Preliminary Other - Other Assessment and Plan (1) Microcytic hypochromic anemia Narrative/Plan: This patient has severe microcytic hypochromic anemia consistent with iron deficiency anemia, status post 1 unit blood transfusion. Today's hemoglobin is 7.9. Last EGD and colonoscopy more than 5 years ago. Current Visit: Yes Status: Acute Code(s): D50.9 - IRON DEFICIENCY ANEMIA, UNSPECIFIED SNOMED Code(s): 71746779 (2) Bowel obstruction Narrative/Plan: Computed tomography scan showed transition point in the distal jejunum in the left lower quadrant area with concentric thickening. Neoplasm cannot be exclude d. Patient underwent exploratory laparotomy yesterday with Dr. 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 He had removal of infected mesh, small bowel resection, lysis of extensive adhesions, and repair of incisional hernia. Current Visit: Yes Status: Acute Code(s): K56.609 - UNSP INTESTNL OBST, UNSP TO PARTIAL VERSUS COMPLETE OBST SNOMED Code(s): 64124786 Plan: 1. Supportive care 2. Monitor CBC daily 3. Diet per surgical services 4. Continue to monitor for signs and symptoms of GI bleed Thank you for this consultation, we'll follow with you closely Dr. Alyssia Arana I agree with the dictator's note, documented as a scribe by Ashley Aguilar.
[2020-10-02] MEDS: ACETAMINOPHEN TAB 325 MG TAB PO PRN (16:34)
[2020-10-02 17:52] LABS: Glucose,Whole Blood 162 mg/dL (75-99)
--- NOTE | 2020-10-02 18:02 | XR ---
EXAMINATION TYPE: XR chest 1V DATE OF EXAM: 10/02/2020 COMPARISON: 09/29/2020 HISTORY: Check tube placement TECHNIQUE: Single view FINDINGS: There is nasogastric tube with the tip over the mid esophagus. Heart and mediastinum are no rmal. Lungs are clear of infiltrate. There is no heart failure. There is no evidence of pleural effus ion. There are chest leads. IMPRESSION: No active cardiopulmonary disease. Heart and lungs unchanged. Nasogastric tube is in the midesophagus.
--- NOTE | 2020-10-02 19:36 | XR ---
EXAMINATION TYPE: XR chest 1V DATE OF EXAM: 10/02/2020 COMPARISON: Today. One hour ago. HISTORY: Check tube placement TECHNIQUE: Single view FINDINGS: There is nasogastric tube with the tip in the gastric fundus. There is additional lines ove r the chest. There are chest leads. Lungs are clear of consolidation. There are no hilar masses. Ther e is no pleural effusion.. IMPRESSION: NG tube appears have a tip in the gastric fundus.
[2020-10-02 20:41] LABS: Glucose,Whole Blood 166 mg/dL (75-99)
[2020-10-02] MEDS: lisinopriL 20 MG TAB PO SCH (21:42)
[2020-10-02] MEDS: ATORVASTATIN 80 MG TAB PO SCH (21:42)
[2020-10-02] MEDS: DULoxetine HCL 60 MG CAPSULE.DR PO SCH (21:42)
[2020-10-02] MEDS: FAMOTIDINE 20 MG/2 ML VIAL IV SCH (21:42)
[2020-10-02] MEDS: HEPARIN SODIUM,PORCINE 5,000 UNIT/ML 1 ML VIAL SQ SCH (21:43)
[2020-10-03] MEDS: HYDROmorphone 1 MG/ML 1 ML SYRINGE IVP PRN ×2 (01:40→20:48)
--- NOTE | 2020-10-03 03:08 | PN ---
PROGRESS NOTE DATE OF SERVICE: 10/02/2020. REASON FOR FOLLOWUP: Infected abdominal mesh. INTERVAL HISTORY: Patient did have a low-grade fever 99 degrees Fahrenheit. The patient denies having any chest pain, shortness of breath or cough. Still has some abdominal pain. No worsening. No vomiting or diarrhea has been reported. PHYSICAL EXAMINATION: Blood pressure 144/70 with pulse of 92, temperature 99.7, he is 99 percent on room air. General description: The patient is a middle-aged male lying in bed in no distress. Respiratory system: Unlabored breathing, clear to auscultation anteriorly. HEART: S1, S2. Regular rate and rhythm. ABDOMEN: Soft, mildly distended. Wound is covered with a wound VAC. Extremities: No edema of the feet. LABS: Hemoglobin 7.1, white count 10.4, BUN of 16, creatinine 0.80. Abdominal cultures currently pending. DIAGNOSTIC IMPRESSION AND PLAN: Patient with infected abdominal mesh, small bowel obstruction status post laparotomy with resection of small bowel and removal of infected mesh. Culture is pending. The patient is currently covered with Unasyn and vancomycin adjusting medications further based on culture report. Continue supportive care. MMODL / IJN: [id number] /
[2020-10-03] MEDS: AMPICILLIN-SULBACTAM 3 GM in SODIUM CHLORIDE 0.9% 100 ML IVPB SCH ×3 (05:34→17:37)
[2020-10-03 06:12] LABS: Glucose,Whole Blood 164 mg/dL (75-99)
[2020-10-03] MEDS: D5-0.45% NACL WITH KCL 20MEQ/L 1,000 ML IV SCH ×3 (06:14→21:31)
[2020-10-03] MEDS: INSULIN ASPART (NovoLOG) 100 UNIT/ML VIAL SQ SCH ×4 (06:24→21:30)
[2020-10-03 06:35] LABS: INR 1.1 (<1.2); Prothrombin Time 11.5 sec (9.0-12.0)
[2020-10-03 06:40] LABS: African American GFR (CKD) >90 (>60 ml/min/1.73 sqM); Anion Gap 4 mmol/L; Blood Urea Nitrogen 5 mg/dL (9-20); Calcium 7.9 mg/dL (8.4-10.2); Carbon Dioxide 26 mmol/L (22-30); Chloride 104 mmol/L (98-107); Glucose 140 mg/dL (74-99); Non-African American GFR(CKD) >90 (>60 ml/min/1.73 sqM); Potassium 3.8 mmol/L (3.5-5.1); Sodium 134 mmol/L (137-145)
[2020-10-03 06:52] LABS: Anisocytosis Marked; HCT 25.9 % (39.0-53.0); HGB 7.1 gm/dL (13.0-17.5); Hypochromasia Marked; MCH 18.5 pg (25.0-35.0); MCHC 27.3 g/dL (31.0-37.0); MCV 67.7 fL (80.0-100.0); Mean Platelet Volume 7.5; Microcytosis Marked; Platelet Count 345 k/uL (150-450); Poikilocytosis Marked; RBC 3.82 m/uL (4.30-5.90); RDW 24.7 % (11.5-15.5); WBC 6.4 k/uL (3.8-10.6)
[2020-10-03] MEDS: ACETAMINOPHEN TAB 325 MG TAB PO PRN ×2 (08:53→15:46)
[2020-10-03] MEDS: VANCOMYCIN 2,000 MG in SODIUM CHLORIDE 0.9% 500 ML 500 ML IVPB SCH ×2 (08:53→20:52)
[2020-10-03] MEDS: PANTOPRAZOLE 40 MG/10 ML VIAL IVP SCH ×2 (08:54→21:04)
[2020-10-03] MEDS: HEPARIN SODIUM,PORCINE 5,000 UNIT/ML 1 ML VIAL SQ SCH ×2 (08:54→21:03)
[2020-10-03] MEDS: FAMOTIDINE 20 MG/2 ML VIAL IV SCH ×2 (08:54→21:01)
[2020-10-03] MEDS: ALVIMOPAN 12 MG CAPSULE PO SCH ×2 (08:54→21:31)
[2020-10-03] MEDS: CYANOCOBALAMIN 500 MCG TAB PO SCH (08:54)
[2020-10-03] MEDS: diphenhydrAMINE 25 MG CAP PO SCH ×2 (08:54→21:00)
[2020-10-03] MEDS: GABAPENTIN 300 MG CAP PO SCH ×3 (08:55→21:05)
[2020-10-03] MEDS: HYDROCORTISONE 1% CREAM 30 GM TUBE TOPICAL SCH ×2 (08:55→21:03)
[2020-10-03 09:04] LABS: Eosinophils # (M) 0.19 k/uL (0-0.7); Lymphocytes # (M) 1.09 k/uL (1.0-4.8); Metamyelocytes # (M) 0.06 k/uL (0); Metamyelocytes % 1 %; Monocytes # (M) 0.26 k/uL (0-1.0); Neutrophils # (M) 4.86 k/uL (1.3-7.7); Neutrophils % (M) 76 %; Nucleated Red Blood Cells 0 /100 WBC (0-0); Polychromasia Present; Total Cells Counted 200
--- NOTE | 2020-10-03 10:29 | P.PN ---
Subjective from records: Patient is a 60-year-old male with a known history of hypertension, hyperlipidemia, obstructive sleep apnea on CPAP at home, diabetes type 2, history of multiple DVTs currently warfarin for anticoagulation, anxiety/depression and everyday smoker and history of marijuana use was sent to hospital ER by his primary care physician due to hemoglobin level 6.3. Patient had blood work-up done at the clinic yesterday and reported hemoglobin of 6.3 today. According to his daughter at bedside. Patient has been having lethargic and very weak and pale for the past 3 days. Denied any dark-colored stools. Patient has been having nausea and episodes of vomiting. Mainly bilious. No blood in the vomitus. Patient was also having worsening abdominal pain for the past 2 to 3 days. No fever no chills. No cough or sputum production. Patient does have some exertional dyspnea. CT of the abdomen pelvis showed new proximal to mid to distal jejunal small bowel obstruction. Transition point identified left lower quadrant ports are fisher spicious for concentric occluding mass neoplasm but this is unusual in the small bowel. Focal severe inflammation of infection is causing the obstruction at this level. Follow-up is advised. Chest x-ray showed NG tube in the GE junction or in the gastric fundus. No acute lung disease. Heart and lungs are unchanged. Laboratory data showed lactic acid level 2.8, INR 1.9, hemoglobin 7.6, WBC 7.5, MCV 62.3 and RDW 21.9 Stool for occult blood is negative Coronavirus PCR not detected. 09/30/2020 Patient is currently resting in the bed. Hemoglobin improved to 7.4. Patient is being continued on IV hydration nothing by mouth due to small bowel obstruction. General surgery is planning for exploratory laparotomy tomorrow. Patient is being continued on antibiotics. 10/01/2020 Patient was admitted to the hospital due to small bowel obstruction and possible mass and atelectasis anemia.. Status post exploratory laparotomy today with removal of infected mesh Small bowel resection Lysis of extensive adhesions Repair of incisional hernia. Patient is afebrile. Pain is fairly controlled. No nausea or vomiting. Hemoglobin is 7.4 this morning. Patient is being continued antibiotics in the f orm of Unasyn. Patient is iron deficient and low normal B12 level. 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 Also he had infected hernia mesh. He underwent exploratory laparotomy and removal of the infected mesh and small bowel resection yesterday on 10/01/2020. Today is postoperative day #1. He is lying in bed comfortable not in distress although he is complaining of from abdominal pain which is expected at surgical site. The wound is clean and closed. Wound VAC is in place. NG tube is in place. The patient remains nothing by mouth, no nausea vomiting. And he passing gas but no bowel movement. No chest pain or dyspnea., No other complaints. He is actually getting D5 half-normal saline at 1 25 mL/h. he is covered with Unasyn and IV vancomycin as per the ID team recommendation also he is on Protonix IV twice daily patient is with history of multiple DVT on Coumadin at home, patient told me he was taking 9 milligrams Friday to Friday and 10 mg on Friday, currently he is off Coumadin, will resume Coumadin was cleared by surgery team 10/03/2020 Patient clinically looks same to yesterday, his abdominal pain little better. Still passing gas only with no bowel movement. NG tube still in place with only a few milliliters of clear fluid. We're waiting for the surgery team to decide to discontinue the NG tube, probably today. Patient can start on his diet and Coumadin if cleared by surgery. he is covered with Unasyn and IV vancomycin as per the ID team recommendation also he is on Protonix IV twice daily Coumadin is on hold [he takes 9 mg daily except Friday he takes 10 mg] Review of systems CONSTITUTIONAL: No fever, no malaise, no fatigue. HEENT: No recent visual problems or hearing problems. Denied any sore throat. CARDIOVASCULAR: No orthopnea, PND, no palpitations, no syncope. PULMONARY: No shortness of breath, no cough, no hemoptysis. GASTROINTESTINAL: No diarrhea, no nausea, no vomiting. Normoactive bowel sounds. NEUROLOGICAL: No headaches, no weakness, no numbness. Active Medications Generic Name Dose Route Start Last Admin Trade Name Freq PRN Reason Stop Dose Admin Acetaminophen 650 mg 09/29/20 19:49 10/03/20 08:53 Acetaminophen Tab 325 Mg Tab PO 650 mg Q6HR PRN Administration Fever and/ or Pain Albuterol Sulfate 2.5 mg 09/29/20 19:46 Albuterol Nebulized 2.5 Mg/3 Ml INHALATION RT-Q6H PRN Shortness Of Breath Alvimopan 12 mg 10/01/20 21:00 10/03/20 08:54 Alvimopan 12 Mg Capsule PO 10/08/20 09:01 12 mg BID ASIA Administration Atorvastatin Calcium 80 mg 09/29/20 21:00 10/02/20 21:42 Atorvastatin 80 Mg Tab PO 80 mg HS ASIA Administration Benzocaine/Menthol 1 each 10/01/20 13:07 Benzocaine/Menthol Lozeng 1 Each Lozenge MUCOUS MEM Q1HR PRN Sore Throat Cyanocobalamin 1,000 mcg 10/02/20 09:00 10/03/20 08:54 Cyanocobalamin 500 Mcg Tab PO 1,000 mcg DAILY ASIA Administration Diphenhydramine HCl 25 mg 09/29/20 21:00 10/03/20 08:54 Diphenhydramine 25 Mg Cap PO 25 mg BID ASIA Administration Duloxetine HCl 60 mg 09/29/20 21:00 10/02/20 21:42 Duloxetine Hcl 60 Mg Capsule. PO 60 mg HS ASIA Administration Famotidine 20 mg 10/02/20 21:00 10/03/20 08:54 Famotidine 20 Mg/2 Ml Vial IV 20 mg Q12HR ASIA Administration Gabapentin 300 mg 09/29/20 22:00 10/03/20 08:55 Gabapentin 300 Mg Cap PO 300 mg TID ASIA Administration Heparin Sodium (Porcine) 5,000 unit 10/02/20 21:00 10/03/20 08:54 Heparin Sodium,Porcine 5,000 Unit/Ml 1 Ml Vial SQ 5,000 unit Q12HR ASIA Administration Hydrocortisone 1 applic 09/29/20 21:00 10/03/20 08:55 Hydrocortisone 1% Cream 30 Gm Tube TOPICAL 1 applic BID ASIA Administration Hydromorphone HCl 1 mg 10/01/20 13:07 10/03/20 01:40 Hydromorphone 1 Mg/Ml 1 Ml Syringe IVP 1 mg Q3HR PRN Administration Severe Pain Potassium Chloride/Dextrose/Sod Cl 1,000 mls @ 125 mls/hr 10/01/20 14:00 10/03/20 08:53 D5%-1/2ns-Kcl 20 Meq/L Iv Solution IV 125 mls/hr .Q8H ASIA Administration Ampicillin Sodium/Sulbactam 100 mls @ 200 mls/hr 10/01/20 18:00 10/03/20 05:34 Sodium 3 gm/ Sodium Chloride IVPB 200 mls/hr Q6HR ASIA Administration Vancomycin HCl 2,000 mg/ 500 mls @ 167 mls/hr 10/02/20 08:00 10/03/20 08:53 Sodium Chloride IVPB 167 mls/hr Q12H ASIA Administration Insulin Aspart 0 unit 09/29/20 21:00 10/03/20 06:24 Insulin Aspart (Novolog) 100 Unit/Ml Vial SQ 2 unit ACHS ASIA Administration Protocol Ketorolac Tromethamine 15 mg 10/01/20 13:07 Ketorolac 15 Mg/Ml 1 Ml Vial IVP 10/03/20 13:08 Q6HR PRN Mild to Moderate Pain Lisinopril 20 mg 09/29/20 21:00 10/02/20 21:42 Lisinopril 20 Mg Tab PO 20 mg HS ASIA Administration Melatonin 6 mg 09/29/20 19:57 Melatonin 3 Mg Tablet PO HS PRN Insomnia Morphine Sulfate 4 mg 09/29/20 15:22 10/02/20 09:05 Morphine Sulfate 4 Mg/Ml Syringe IV 4 mg Q4HR PRN Administration Severe Pain Naloxone HCl 0.2 mg 09/29/20 15:22 Naloxone 0.4 Mg/Ml 1 Ml Vial IV Q2M PRN Opioid Reversal Ondansetron HCl 4 mg 09/29/20 15:22 Ondansetron 4 Mg/2 Ml Vial IVP Q8HR PRN Nausea And Vomiting Pantoprazole Sodium 40 mg 09/29/20 21:00 10/03/20 08:54 Pantoprazole 40 Mg/10 Ml Vial IVP 40 mg BID ASIA Administration Trazodone HCl 75 mg 09/29/20 21:00 10/02/20 21:42 Trazodone Hcl 50 Mg Tab PO 75 mg HS ASIA Administration Objective - Vital Signs Vital signs: Vital Signs Temp 99.3 F 10/03/20 08:00 Pulse 94 10/03/20 08:00 Resp 16 10/03/20 08:00 BP 130/67 10/03/20 08:00 Pulse Ox 92 L 10/03/20 08:00 Intake & Output 10/02/20 10/03/20 10/03/20 18:59 06:59 18:59 Intake Total 0 Output Total 1050 Balance -1050 Weight 125.1 kg Intake: Oral 0 Output: Gastric Drainage 50 Urine 1000 Other: Voiding Method Indwelling Catheter Indwelling Catheter - Exam -GENERAL: The patient is alert and oriented x3, not in any acute distress. obese HEENT: Pupils are round and equally reacting to light. EOMI. No scleral icterus. No conjunctival pallor. Normocephalic, atraumatic. No pharyngeal erythema. No thyromegaly. CARDIOVASCULAR: S1 and S2 present. No murmurs, rubs, or gallops. PULMONARY: Chest is clear to auscultation, no wheezing or crackles. -ABDOMEN: Soft, nontender, nondistended, normoactive bowel sounds. No palpable organomegaly. midline vertical incision below the umbilicus, wound is clean and close with no discharge. Umbilical site wound VAC is in place MUSCULOSKELETAL: No joint swelling or deformity. EXTREMITIES: No cyanosis, clubbing, or pedal edema. NEUROLOGICAL: Gross neurological examination did not reveal any focal deficits. SKIN: No rashes. no petechiae. - Labs CBC & Chem 7: 10/03/20 06:05 10/03/20 06:05 Labs: Abnormal Lab Results - Last 24 Hours (Table) 09/29/20 09/30/20 10/02/20 Range/Units 13:20 06:31 12:35 RBC (4.30-5.90) m/uL Hgb (13.0-17.5) gm/dL Hct (39.0-53.0) % MCV (80.0-100.0) fL MCH (25.0-35.0) pg MCHC (31.0-37.0) g/dL RDW (11.5-15.5) % Metamyelocytes # (Man) (0) k/uL Sodium (137-145) mmol/L BUN (9-20) mg/dL Glucose (74-99) mg/dL POC Glucose (mg/dL) 144 H (75-99) mg/dL Calcium (8.4-10.2) mg/dL RBC Folate 1,386 H (280 - 791) ng/mL Crossmatch See Detail 10/02/20 10/02/2021 Range/Units 17:51 20:40 06:05 RBC 3.82 L (4.30-5.90) m/uL Hgb 7.1 L (13.0-17.5) gm/dL Hct 25.9 L (39.0-53.0) % MCV 67.7 L (80.0-100.0) fL MCH 18.5 L (25.0-35.0) pg MCHC 27.3 L (31.0-37.0) g/dL RDW 24.7 H (11.5-15.5) % Metamyelocytes # (Man) 0.06 H (0) k/uL Sodium (137-145) mmol/L BUN (9-20) mg/dL Glucose (74-99) mg/dL POC Glucose (mg/dL) 162 H 166 H (75-99) mg/dL Calcium (8.4-10.2) mg/dL RBC Folate (280 - 791) ng/mL Crossmatch 10/03/20 10/03/20 Range/Units 06:05 06:11 RBC (4.30-5.90) m/uL Hgb (13.0-17.5) gm/dL Hct (39.0-53.0) % MCV (80.0-100.0) fL MCH (25.0-35.0) pg MCHC (31.0-37.0) g/dL RDW (11.5-15.5) % Metamyelocytes # (Man) (0) k/uL Sodium 134 L (137-145) mmol/L BUN 5 L (9-20) mg/dL Glucose 140 H (74-99) mg/dL POC Glucose (mg/dL) 164 H (75-99) mg/dL Calcium 7.9 L (8.4-10.2) mg/dL RBC Folate (280 - 791) ng/mL Crossmatch Microbiology - Last 24 Hours (Table) 10/01/20 18:00 Blood Culture - Preliminary Blood No Growth after 24 hours Assessment and Plan Assessment: -Acute small bowel obstruction with possible mass , infected hernia meshas per CT report. s/p exp laparotomy, infected mesh removal and small bowel resection Microcytic iron deficiency anemia Lactic acidosis, back to normal History of multiple DVTs currently on anticoagulation with Coumadin Obstructive sleep apnea on CPAP at home Hypertension Hyperlipidemia Diabetes type 2 [id number] Anxiety/depression Currently everyday smoker History of marijuana use Diabetic peripheral neuropathy Plan: this is a pleasant 60 years old male status post exploratory laparotomy, bowel resection andInfected mesh removal. Continue with antibiotic Unasyn and IV vancomycin as per ID team. Continue with bowel rest, resume diet as per surgery team when ready. Pain management.gentle IV hydration Follow-up biopsy results. follow-up recommendation by GI and surgery teams and ID team's. Labs and medication were reviewed.. Continue same treatment. Continue with symptomatic treatment. Resume home medication. Monitor lytes and vitals. DVT and GI prophylaxis. Further recommendations as per clinical course of the patient DVT prophylaxis: Subcutaneous heparin, resume Coumadin per surgery team GI Prophylaxis: Pepcid PT/OT: Pending
[2020-10-03 11:40] LABS: Glucose,Whole Blood 198 mg/dL (75-99)
--- NOTE | 2020-10-03 12:31 | P.PN ---
Subjective Progress Note Date: 10/03/20 CHIEF COMPLAINT: Abdominal pain HISTORY OF PRESENT ILLNESS: Patient seen and examined with Dr. chang. 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 Patient is sitting up at bedside chair. He reports that his pain is controlled. He has been passing gas. Denie s any bowel movement. He does have wound VAC in place. Afebrile WBC 6.4 PHYSICAL EXAM: VITAL SIGNS: Reviewed. GENERAL: Well-developed in no acute distress. HEENT: No sclera icterus. Extraocular movements grossly intact. Moist buccal mucosa. Head is atraumatic, normocephalic. ABDOMEN: Soft. Nondistended. Incision clean dry and intact with wound VAC in place NEUROLOGIC: Alert and oriented. Cranial nerves II through XII grossly intact. ASSESSMENT: 1. 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 Signing provider agrees with the documented findings, assessment, and plan of care. Objective - Vital Signs Vital signs: Vital Signs Temp 99.3 F 10/03/20 08:00 Pulse 94 10/03/20 08:00 Resp 16 10/03/20 08:00 BP 130/67 10/03/20 08:00 Pulse Ox 92 L 10/03/20 08:00 Intake & Output 10/02/20 10/03/20 10/03/20 18:59 06:59 18:59 Intake Total 0 Output Total 1050 Balance -1050 Weight 125.1 kg 125.1 kg Intake: Oral 0 Output: Gastric Drainage 50 Urine 1000 Other: Voiding Method Indwelling Catheter Indwelling Catheter - Labs CBC & Chem 7: 10/03/20 06:05 10/03/20 06:05 Labs: Abnormal Lab Results - Last 24 Hours (Table) 09/29/20 09/30/20 10/02/20 Range/Units 13:20 06:31 12:35 RBC (4.30-5.90) m/uL Hgb (13.0-17.5) gm/dL Hct (39.0-53.0) % MCV (80.0-100.0) fL MCH (25.0-35.0) pg MCHC (31.0-37.0) g/dL RDW (11.5-15.5) % Metamyelocytes # (Man) (0) k/uL Sodium (137-145) mmol/L BUN (9-20) mg/dL Glucose (74-99) mg/dL POC Glucose (mg/dL) 144 H (75-99) mg/dL Calcium (8.4-10.2) mg/dL RBC Folate 1,386 H (280 - 791) ng/mL Crossmatch See Detail 10/02/20 10/02/20 10/03/20 Range/Units 17:51 20:40 06:05 RBC 3.82 L (4.30-5.90) m/uL Hgb 7.1 L (13.0-17.5) gm/dL Hct 25.9 L (39.0-53.0) % MCV 67.7 L (80.0-100.0) fL MCH 18.5 L (25.0-35.0) pg MCHC 27.3 L (31.0-37.0) g/dL RDW 24.7 H (11.5-15.5) % Metamyelocytes # (Man) 0.06 H (0) k/uL Sodium (137-145) mmol/L BUN (9-20) mg/dL Glucose (74-99) mg/dL POC Glucose (mg/dL) 162 H 166 H (75-99) mg/dL Calcium (8.4-10.2) mg/dL RBC Folate (280 - 791) ng/mL Crossmatch 10/03/20 10/03/20 10/03/20 Range/Units 06:05 06:11 11:39 RBC (4.30-5.90) m/uL Hgb (13.0-17.5) gm/dL Hct (39.0-53.0) % MCV (80.0-100.0) fL MCH (25.0-35.0) pg MCHC (31.0-37.0) g/dL RDW (11.5-15.5) % Metamyelocytes # (Man) (0) k/uL Sodium 134 L (137-145) mmol/L BUN 5 L (9-20) mg/dL Glucose 140 H (74-99) mg/dL POC Glucose (mg/dL) 164 H 198 H (75-99) mg/dL Calcium 7.9 L (8.4-10.2) mg/dL RBC Folate (280 - 791) ng/mL Crossmatch Microbiology - Last 24 Hours (Table) 10/01/20 12:36 Gram Stain - Preliminary Other - Other Wound Culture - Preliminary Presumptive Staph aureus 10/01/20 18:00 Blood Culture - Preliminary Blood No Growth after 24 hours
--- NOTE | 2020-10-03 13:21 | P.PN ---
Subjective Progress Note Date: 10/03/20 Principal diagnosis: Severe symptomatic microcytic hypochromic anemia and abdominal pain . This is a pleasant 60-year-old white male patient admitted to the hospital with acute small bowel obstruction. He presented with abdominal pain, nausea, and vomiting for 2 days prior to hospitalization. He was also noted to have severe symptomatic anemia with a hemoglobin of 7.6 requiring 1 unit of PRBC transfusion. 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 Today he is seen and evaluated sitting up at the bedside. His NG tube was discontinued yesterday. He denies any evidence of GI bleed. He has not had a bowel movement. He states he has surgical pain. No nausea or vomiting. He was given IV iron yesterday. Today's repeat hemoglobin is 7.1. Objective - Vital Signs Vital signs: Vital Signs Temp 99.3 F 10/03/20 08:00 Pulse 94 10/03/20 08:00 Resp 16 10/03/20 08:00 BP 130/67 10/03/20 08:00 Pulse Ox 92 L 10/03/20 08:00 Intake & Output 10/02/20 10/03/20 10/03/20 18:59 06:59 18:59 Intake Total 0 Output Total 1050 Balance -1050 Weight 125.1 kg Intake: Oral 0 Output: Gastric Drainage 50 Urine 1000 Other: Voiding Method Indwelling Catheter Indwelling Catheter - Exam General appearance: The patient is alert, oriented, appears in no acute distress. HET: Head is normocephalic and atraumatic. Conjunctiva pink. Sclera anicteric. NG tube in place. Neck: Supple without lymphadenopathy. Abdomen: Soft, surgical incision clean dry and intact, nondistended with bowel sounds. No guarding or rigidity. Extremities: Normal skin color and turgor. No pedal edema Skin: No rashes, no jaundice Neurological: No focal deficits. Alert and oriented 3. - Labs CBC & Chem 7: 10/03/20 06:05 10/03/20 06:05 Labs: Abnormal Lab Results - Last 24 Hours (Table) 09/29/20 09/30/20 10/02/20 Range/Units 13:20 06:31 12:35 RBC (4.30-5.90) m/uL Hgb (13.0-17.5) gm/dL Hct (39.0-53.0) % MCV (80.0-100.0) fL MCH (25.0-35.0) pg MCHC (31.0-37.0) g/dL RDW (11.5-15.5) % Metamyelocytes # (Man) (0) k/uL Sodium (137-145) mmol/L BUN (9-20) mg/dL Glucose (74-99) mg/dL POC Glucose (mg/dL) 144 H (75-99) mg/dL Calcium (8.4-10.2) mg/dL RBC Folate 1,386 H (280 - 791) ng/mL Crossmatch See Detail 10/02/20 10/02/20 10/03/20 Range/Units 17:51 20:40 06:05 RBC 3.82 L (4.30-5.90) m/uL Hgb 7.1 L (13.0-17.5) gm/dL Hct 25.9 L (39.0-53.0) % MCV 67.7 L (80.0-100.0) fL MCH 18.5 L (25.0-35.0) pg MCHC 27.3 L (31.0-37.0) g/dL RDW 24.7 H (11.5-15.5) % Metamyelocytes # (Man) 0.06 H (0) k/uL Sodium (137-145) mmol/L BUN (9-20) mg/dL Glucose (74-99) mg/dL POC Glucose (mg/dL) 162 H 166 H (75-99) mg/dL Calcium (8.4-10.2) mg/dL RBC Folate (280 - 791) ng/mL Crossmatch 10/03/20 10/03/20 Range/Units 06:05 06:11 RBC (4.30-5.90) m/uL Hgb (13.0-17.5) gm/dL Hct (39.0-53.0) % MCV (80.0-100.0) fL MCH (25.0-35.0) pg MCHC (31.0-37.0) g/dL RDW (11.5-15.5) % Metamyelocytes # (Man) (0) k/uL Sodium 134 L (137-145) mmol/L BUN 5 L (9-20) mg/dL Glucose 140 H (74-99) mg/dL POC Glucose (mg/dL) 164 H (75-99) mg/dL Calcium 7.9 L (8.4-10.2) mg/dL RBC Folate (280 - 791) ng/mL Crossmatch Microbiology - Last 24 Hours (Table) 10/01/20 18:00 Blood Culture - Preliminary Blood No Growth after 24 hours Assessment and Plan (1) Microcytic hypochromic anemia Narrative/Plan: This patient has severe microcytic hypochromic anemia consistent with iron deficiency anemia, status post 1 unit blood transfusion. Today's hemoglobin is 7.9. Last EGD and colonoscopy more than 5 years ago. Current Visit: Yes Status: Acute Code(s): D50.9 - IRON DEFICIENCY ANEMIA, UNSPECIFIED SNOMED Code(s): 32548058 (2) Bowel obstruction Narrative/Plan: Computed tomography scan showed transition point in the distal jejunum in the left lower quadrant area with concentric thickening. Neoplasm cannot be excluded. Patient underwent exploratory laparotomy yesterday with Dr. 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 He had removal of infected mesh, small bowel resection, lysis of extensive adhesions, and repair of incisional hernia. Current Visit: Yes Status: Acute Code(s): K56.609 - UNSP INTESTNL OBST, UNSP TO PARTIAL VERSUS COMPLETE OBST SNOMED Code(s): 33995264 Plan: 1. Supportive care 2. Monitor CBC daily 3. Diet per surgical services 4. Continue to monitor for signs and symptoms of GI bleed 5. Further recommendations based on pathology results Thank you for this consultation, we'll follow with you closely Dr. Alyssia Arana I agree with the dictator's note, documented as a scribe by Ashley Aguilar.
[2020-10-03 16:35] LABS: Glucose,Whole Blood 161 mg/dL (75-99)
--- NOTE | 2020-10-03 18:59 | PN ---
PROGRESS NOTE DATE OF SERVICE: 10/03/2020 REASON FOR FOLLOWUP: Infected abdominal mesh. INTERVAL HISTORY: The patient is currently afebrile, has been breathing comfortably. The patient's abdominal pain is slightly better controlled. The patient denies having any chest pain or shortness of breath or cough. No vomiting. No diarrhea. PHYSICAL EXAMINATION: Blood pressure 100/62 with a pulse of 83, temperature 98.4. He is 93% on room air. General description is a middle-aged male lying in bed in no distress. RESPIRATORY SYSTEM: Unlabored breathing. Clear to auscultation anteriorly. HEART: S1, S2. Regular rate and rhythm. ABDOMEN: Soft. Mildly distended. No guarding or rigidity. LABS: Hemoglobin is 7.1, white count 6.4. BUN of 5, creatinine 0.86. Abdominal culture with presumptive staph aureus. DIAGNOSTIC IMPRESSION AND PLAN: Patient with infected abdominal mesh with culture positive for Staphylococcus aureus. Sensitivities are currently pending. Patient is currently covered with vancomycin and Unasyn; to continue while waiting for the final sensitivities. He will benefit from PICC line and outpatient antibiotics. Continue with supportive care. MMODL / IJN: [id number] /
[2020-10-03] MEDS: DULoxetine HCL 60 MG CAPSULE.DR PO SCH (21:00)
[2020-10-03] MEDS: ATORVASTATIN 80 MG TAB PO SCH (21:00)
[2020-10-03] MEDS: lisinopriL 20 MG TAB PO SCH (21:04)
[2020-10-03] MEDS: traZODone HCL 50 MG TAB PO SCH (21:04)
[2020-10-03 21:10] LABS: Glucose,Whole Blood 142 mg/dL (75-99)
[2020-10-04] MEDS: AMPICILLIN-SULBACTAM 3 GM in SODIUM CHLORIDE 0.9% 100 ML IVPB SCH ×3 (00:12→14:41)
[2020-10-04] MEDS: HYDROmorphone 1 MG/ML 1 ML SYRINGE IVP PRN ×2 (03:40→20:34)
[2020-10-04] MEDS: D5-0.45% NACL WITH KCL 20MEQ/L 1,000 ML IV SCH ×3 (05:37→22:36)
[2020-10-04 06:24] LABS: Glucose,Whole Blood 161 mg/dL (75-99)
[2020-10-04] MEDS: INSULIN ASPART (NovoLOG) 100 UNIT/ML VIAL SQ SCH ×4 (06:51→22:35)
[2020-10-04] MEDS ORDERED: VANCOMYCIN TROUGH DUE 1 EACH MISC MISCELLANE ONE (07:00)
[2020-10-04 07:50] LABS: African American GFR (CKD) >90 (>60 ml/min/1.73 sqM); Anion Gap 7 mmol/L; Blood Urea Nitrogen 6 mg/dL (9-20); Calcium 7.7 mg/dL (8.4-10.2); Carbon Dioxide 21 mmol/L (22-30); Chloride 108 mmol/L (98-107); Glucose 136 mg/dL (74-99); Non-African American GFR(CKD) >90 (>60 ml/min/1.73 sqM); Potassium 3.8 mmol/L (3.5-5.1); Sodium 136 mmol/L (137-145)
[2020-10-04 08:00] LABS: Anisocytosis Marked; Basophils % (A) 1 %; Eosinophils # (A) 0.4 k/uL (0-0.7); Eosinophils % (A) 6 %; HCT 24.9 % (39.0-53.0); Hypochromasia Marked; Lymphocytes % (A) 17 %; MCH 19.3 pg (25.0-35.0); MCHC 27.8 g/dL (31.0-37.0); MCV 69.2 fL (80.0-100.0); Mean Platelet Volume 7.4; Microcytosis Marked; Monocytes # (A) 0.3 k/uL (0-1.0); Monocytes % (A) 6 %; Neutrophils # (A) 4.1 k/uL (1.3-7.7); Neutrophils % (A) 70 %; Platelet Count 291 k/uL (150-450); Poikilocytosis Marked; WBC 5.9 k/uL (3.8-10.6)
[2020-10-04 08:12] LABS: RDW 25.6 % (11.5-15.5)
[2020-10-04 08:15] LABS: HGB 6.9 gm/dL (13.0-17.5)
[2020-10-04] MEDS: MORPHINE SULFATE 4 MG/ML SYRINGE IV PRN ×2 (08:46→18:07)
[2020-10-04] MEDS: HEPARIN SODIUM,PORCINE 5,000 UNIT/ML 1 ML VIAL SQ SCH ×2 (08:54→20:34)
[2020-10-04] MEDS: PANTOPRAZOLE 40 MG/10 ML VIAL IVP SCH (08:54)
[2020-10-04] MEDS: FAMOTIDINE 20 MG/2 ML VIAL IV SCH (08:54)
[2020-10-04] MEDS: CYANOCOBALAMIN 500 MCG TAB PO SCH (08:55)
[2020-10-04] MEDS: ALVIMOPAN 12 MG CAPSULE PO SCH ×2 (08:55→20:33)
[2020-10-04] MEDS: GABAPENTIN 300 MG CAP PO SCH ×3 (08:55→20:33)
[2020-10-04] MEDS: diphenhydrAMINE 25 MG CAP PO SCH ×2 (08:55→20:33)
[2020-10-04] MEDS: VANCOMYCIN 2,000 MG in SODIUM CHLORIDE 0.9% 500 ML 500 ML IVPB SCH (08:56)
[2020-10-04] MEDS: HYDROCORTISONE 1% CREAM 30 GM TUBE TOPICAL SCH ×2 (08:57→22:35)
[2020-10-04 10:27] LABS: Polychromasia Present; RBC Fragments Present
[2020-10-04 11:43] LABS: Glucose,Whole Blood 156 mg/dL (75-99)
--- NOTE | 2020-10-04 11:43 | P.CONS ---
History of Present Illness - Reason for Consult Consult date: 10/04/20 wound care - History of Present Illness This is a 60-year-old patient known to the wound care center being seen on for a nonhealing ulceration to the abdomen. Patient underwent a laparoscopic procedure with removal of mesh. Patient currently has a negative pressure wound VAC with black foam in place to his midline abdominal ulceration. Patient will continue to have weekly wound appointments upon discharge. She has past medical history significant for diabetes mellitus, DVT, hypertension, hyperlipidemia, sleep apnea, multiple umbilical hernia repairs with mesh placement. Most recent was in January. Patient is a current every day smoker Review Of Systems: Constitutional: No fever, no chills, no night sweats. No weight change. No weakness, fatigue or lethargy. No daytime sleepiness. Integumentary:reports wounds, no lesions. No rash or pruritus. No unusual bruising. No change in hair or nails. Physical exam: General Appearance: Alert, cooperative, no distress, appears stated age. Skin: See HPI all other Skin color, texture, tugor normal, no rashes or lesions. Neurologic: Alert oriented x3 Assessment/plan: 1. Nonhealing ulceration with muscle involvement without necrosis. Negative pressure wound VAC at continuous suction 125 mmHg with black foam. Change Friday. 2. Open surgical wound 3. Diabetes to skin ulcer Thank you for the consultation any questions please contact the wound care center DNP note has been reviewed and discussed with Dr. Goff and the impression and plan of care has been directed as dictated. Past Medical History Past Medical History: Diabetes Mellitus, Deep Vein Thrombosis (DVT), Hyperlipidemia, Hypertension, Sleep Apnea/CPAP/BIPAP Additional Past Medical History / Comment(s): Open incisional area from umbilical hernia sx. NEEDS MORE HERNIA REPAIRS. STATES AWAITING TWYLA HIP REPLACEMENT. STATES CURRENT DVT LEFT LEG, HX OF KIDNEY STONES History of Any Multi-Drug Resistant Organisms: MRSA Year Discovered:: 05/25/20 MDRO Source:: Abdomen Past Surgical History: Appendectomy, Hernia Repair, Joint Replacement Additional Past Surgical History / Comment(s): APPENDECTOMY? Right knee REPLACED, hernia x2, ABD AORTOGRAM 02/24/17. Hernia repair Mar,. 3/4 Parathyroid removal surgery 01/18/2020 Past Anesthesia/Blood Transfusion Reactions: No Reported Reaction Past Psychological History: Anxiety, Depression Smoking Status: Current every day smoker Past Alcohol Use History: None Reported Past Drug Use History: Marijuana - Past Family History Mother History Unknown: Yes Family Medical History: Dementia, Diabetes Mellitus, Hyperlipidemia, Renal Disease Additional Family Medical History / Comment(s): dialysis Father Family Medical History: Coronary Artery Disease (CAD), Diabetes Mellitus Medications and Allergies Home Medications Medication Instructions Recorded Confirmed Type DULoxetine HCL [Cymbalta] 60 mg PO HS 10/08/17 09/29/20 History metFORMIN HCL 1,000 mg PO BID 10/08/17 09/29/20 History Glimepiride [Amaryl] 1 mg PO HS 11/20/18 09/29/20 History Omeprazole [PriLOSEC] 40 mg PO HS 11/20/18 09/29/20 History traZODone HCL 75 mg PO HS 11/20/18 09/29/20 History Atorvastatin [Lipitor] 80 mg PO HS 07/07/19 09/29/20 History Albuterol Sulfate [Proair Hfa] 2 puff INHALATION RT-Q6H PRN 04/30/20 09/29/20 History Benazepril HCl 20 mg PO HS 04/30/20 09/29/20 History Gabapentin [Neurontin] 300 mg PO TID 09/29/20 09/29/20 History Hydrocortisone Cream 1 applic TOPICAL BID 09/29/20 09/29/20 History [Hydrocortisone 1% Cream] Tiotropium [place] [Spiriva 2 puff INHALATION RT-DAILY 09/29/20 09/29/20 History Respimat] Triamterene-Hctz 37.5-25Mg 1 tab PO DAILY 09/29/20 09/29/20 History [Maxzide 37.5-25] Warfarin [Coumadin] 9 mg PO [id number] 09/29/20 09/29/20 History Warfarin [Coumadin] 12 mg PO ESQUIVEL 09/29/20 09/29/20 History diphenhydrAMINE HCL [Benadryl] 25 mg PO BID 09/29/20 09/29/20 History Allergies Allergy/AdvReac Type Severity Reaction Status Date / Time No Known Allergies Allergy Verified 09/29/20 15:30 Physical Exam Vitals: Vital Signs Temp Pulse Pulse Pulse Resp BP BP 10/04/20 11:20 99 F 86 18 102/66 10/04/20 11:10 97.9 F 86 16 107/68 10/04/20 11:05 97.9 F 86 16 107/68 10/04/20 10:28 97.9 F 86 16 10/04/20 08:00 98.8 F 84 20 127/75 10/04/20 04:00 98.1 F 89 18 138/76 10/04/20 02:00 91 17 10/04/20 00:00 98.4 F 91 17 116/64 10/03/20 20:00 98.9 F 84 17 120/73 10/03/20 15:42 98.4 F 86 14 100/62 10/03/20 12:00 98.3 F 84 18 105/51 BP Pulse Ox 10/04/20 11:20 92 L 10/04/20 11:10 95 10/04/20 11:05 95 10/04/20 10:28 107/68 10/04/20 08:00 94 L 10/04/20 04:00 91 L 10/04/20 02:00 10/04/20 00:00 92 L 10/03/20 20:00 95 10/03/20 15:42 93 L 10/03/20 12:00 93 L Intake and Output 10/03/20 10/04/20 10/04/20 22:59 06:59 14:59 Intake Total 240 0 Output Total 800 400 Balance -560 -400 0 Intake: Oral 240 0 Blood Product 0 Rc As-1 Unit 0 [id number] Output: Urine 400 Stool 400 400 Other: Voiding Method Indwelling Catheter Indwelling Catheter Weight 126.5 kg Results CBC & Chem 7: 10/04/20 07:13 10/04/20 07:13 Labs: Abnormal Lab Results - Last 24 Hours (Table) 09/29/20 10/03/20 10/03/20 Range/Units 13:20 11:39 16:33 RBC (4.30-5.90) m/uL Hgb (13.0-17.5) gm/dL Hct (39.0-53.0) % MCV (80.0-100.0) fL MCH (25.0-35.0) pg MCHC (31.0-37.0) g/dL RDW (11.5-15.5) % Sodium (137-145) mmol/L Chloride (98-107) mmol/L Carbon Dioxide (22-30) mmol/L BUN (9-20) mg/dL Glucose (74-99) mg/dL POC Glucose (mg/dL) 198 H 161 H (75-99) mg/dL Calcium (8.4-10.2) mg/dL Crossmatch See Detail 10/03/20 10/04/20 10/04/20 Range/Units 21:07 06:04 07:13 RBC 3.60 L (4.30-5.90) m/uL Hgb 6.9 L* (13.0-17.5) gm/dL Hct 24.9 L (39.0-53.0) % MCV 69.2 L (80.0-100.0) fL MCH 19.3 L (25.0-35.0) pg MCHC 27.8 L (31.0-37.0) g/dL RDW 25.6 H (11.5-15.5) % Sodium (137-145) mmol/L Chloride (98-107) mmol/L Carbon Dioxide (22-30) mmol/L BUN (9-20) mg/dL Glucose (74-99) mg/dL POC Glucose (mg/dL) 142 H 161 H (75-99) mg/dL Calcium (8.4-10.2) mg/dL Crossmatch 10/04/20 10/04/20 Range/Units 07:13 08:54 RBC (4.30-5.90) m/uL Hgb (13.0-17.5) gm/dL Hct (39.0-53.0) % MCV (80.0-100.0) fL MCH (25.0-35.0) pg MCHC (31.0-37.0) g/dL RDW (11.5-15.5) % Sodium 136 L (137-145) mmol/L Chloride 108 H (98-107) mmol/L Carbon Dioxide 21 L (22-30) mmol/L BUN 6 L (9-20) mg/dL Glucose 136 H (74-99) mg/dL POC Glucose (mg/dL) (75-99) mg/dL Calcium 7.7 L (8.4-10.2) mg/dL Crossmatch See Detail Microbiology - Last 24 Hours (Table) 10/01/20 12:36 Gram Stain - Final Other - Other Wound Culture - Final Staphylococcus aureus 10/01/20 18:00 Blood Culture - Preliminary Blood No Growth after 48 hours 10/01/20 12:36 Anaerobic Culture - Preliminary Other - Other Assessment and Plan (1) 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
--- NOTE | 2020-10-04 12:33 | P.PN ---
Subjective Progress Note Date: 10/04/20 Principal diagnosis: Severe symptomatic microcytic hypochromic anemia and abdominal pain . This is a pleasant 60-year-old white male patient admitted to the hospital with acute small bowel obstruction. He presented with abdominal pain, nausea, and vomiting for 2 days prior to hospitalization. He was also noted to have severe symptomatic anemia with a hemoglobin of 7.6 requiring 1 unit of PRBC transfusion. 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 Today he is seen and evaluated sitting up at the bedside. He denies any evidence of GI bleed. He has not had a bowel movement. He states he has surgical pain. No nausea or vomiting. He had a drop in his hemoglobin today to 6.9. 1 unit of PRBC transfusion has been ordered. He really remains nothing by mouth except popsicles and ice chips. Objective - Vital Signs Vital signs: Vital Signs Temp 99 F 10/04/20 11:20 Pulse 86 10/04/20 11:20 Resp 18 10/04/20 11:20 BP 102/66 10/04/20 11:20 Pulse Ox 92 L 10/04/20 11:20 Intake & Output 10/03/20 10/04/20 10/04/20 18:59 06:59 18:59 Intake Total 480 0 Output Total 800 800 Balance -320 -800 0 Weight 125.1 kg 126.5 kg Intake: Oral 480 0 Blood Product 0 Rc As-1 Unit 0 [id number] Output: Urine 800 Uretheral (Alves) 400 Stool 800 Other: Voiding Method Indwelling Catheter - Exam General appearance: The patient is alert, oriented, appears in no acute distress. HET: Head is normocephalic and atraumatic. Conjunctiva pink. Sclera anicteric. . Neck: Supple without lymphadenopathy. Abdomen: Soft, surgical incision clean dry and intact, nondistended with bowel sounds. No guarding or rigidity. Extremities: Normal skin color and turgor. No pedal edema Skin: No rashes, no jaundice Neurological: No focal deficits. Alert and oriented 3. - Labs CBC & Chem 7: 10/04/20 07:13 10/04/20 07:13 Labs: Abnormal Lab Results - Last 24 Hours (Table) 03/07/1010/03/20 10/03/20 Range/Units 13:20 16:33 21:07 RBC (4.30-5.90) m/uL Hgb (13.0-17.5) gm/dL Hct (39.0-53.0) % MCV (80.0-100.0) fL MCH (25.0-35.0) pg MCHC (31.0-37.0) g/dL RDW (11.5-15.5) % Sodium (137-145) mmol/L Chloride (98-107) mmol/L Carbon Dioxide (22-30) mmol/L BUN (9-20) mg/dL Glucose (74-99) mg/dL POC Glucose (mg/dL) 161 H 142 H (75-99) mg/dL Calcium (8.4-10.2) mg/dL Crossmatch See Detail 10/04/20 10/04/20 10/04/20 Range/Units 06:04 07:13 07:13 RBC 3.60 L (4.30-5.90) m/uL Hgb 6.9 L* (13.0-17.5) gm/dL Hct 24.9 L (39.0-53.0) % MCV 69.2 L (80.0-100.0) fL MCH 19.3 L (25.0-35.0) pg MCHC 27.8 L (31.0-37.0) g/dL RDW 25.6 H (11.5-15.5) % Sodium 136 L (137-145) mmol/L Chloride 108 H (98-107) mmol/L Carbon Dioxide 21 L (22-30) mmol/L BUN 6 L (9-20) mg/dL Glucose 136 H (74-99) mg/dL POC Glucose (mg/dL) 161 H (75-99) mg/dL Calcium 7.7 L (8.4-10.2) mg/dL Crossmatch 10/04/20 10/04/20 Range/Units 08:54 11:41 RBC (4.30-5.90) m/uL Hgb (13.0-17.5) gm/dL Hct (39.0-53.0) % MCV (80.0-100.0) fL MCH (25.0-35.0) pg MCHC (31.0-37.0) g/dL RDW (11.5-15.5) % Sodium (137-145) mmol/L Chloride (98-107) mmol/L Carbon Dioxide (22-30) mmol/L BUN (9-20) mg/dL Glucose (74-99) mg/dL POC Glucose (mg/dL) 156 H (75-99) mg/dL Calcium (8.4-10.2) mg/dL Crossmatch See Detail Microbiology - Last 24 Hours (Table) 10/01/20 12:36 Gram Stain - Final Other - Other Wound Culture - Final Staphylococcus aureus 10/01/20 18:00 Blood Culture - Preliminary Blood No Growth after 48 hours 10/01/20 12:36 Anaerobic Culture - Preliminary Other - Other Assessment and Plan (1) Microcytic hypochromic anemia Narrative/Plan: This patient has severe microcytic hypochromic anemia consistent with iron deficiency anemia, status post 1 unit blood transfusion. Last EGD and colonoscopy more than 5 years ago. Today's repeat hemoglobin is 6.9, he has 1 unit of PRBC ordered. Awaiting pathology. May consider upper endoscopy if needed. Current Visit: Yes Status: Acute Code(s): D50.9 - IRON DEFICIENCY ANEMIA, UNSPECIFIED SNOMED Code(s): 74608709 (2) Bowel obstruction Narrative/Plan: Computed tomography scan showed transition point in the distal jejunum in the left lower quadrant area with concentric thickening. Neoplasm cannot be excluded. Patient underwent exploratory laparotomy yesterday with Dr. 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 He had removal of infected mesh, small bowel resection, lysis of extensive adhesions, and repair of incisional hernia. Current Visit: Yes Status: Acute Code(s): K56.609 - UNSP INTESTNL OBST, UNSP TO PARTIAL VERSUS COMPLETE OBST SNOMED Code(s): 39715347 Plan: 1. Supportive care 3. Agree with PRBC transfusion, repeat CBC this afternoon 2. Monitor CBC daily, transfuse for hemoglobin less than 7 3. Diet per surgical services 4. Continue to monitor for signs and symptoms of GI bleed 5. Further recommendations based on pathology results, no plans for endoscopic evaluation at this time. Thank you for this consultation, we'll follow with you closely Dr. Alyssia Arana I agree with the dictator's note, documented as a scribe by Ashley Aguilar.
--- NOTE | 2020-10-04 12:40 | P.PN ---
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 Patient is sitting up in bed. He is complaining that he is hungry. He is passing gas. No bowel movement. He denies any nausea or vomiting. He is hemoglobin 6.9 and is receiving 1 unit of blood. He does have wound VAC in place. Afebrile WBC 5.9 Hgb 6.9 wound culture growing presumptive staph aureus PHYSICAL EXAM: VITAL SIGNS: Reviewed. GENERAL: Well-developed in no acute distress. HEENT: No sclera icterus. Extraocular movements grossly intact. Moist buccal mucosa. Head is atraumatic, normocephalic. ABDOMEN: Soft. Nondistended. Incision clean dry and intact with wound VAC in place NEUROLOGIC: Alert and oriented. Cranial nerves II through XII grossly intact. ASSESSMENT: 1. 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 Signing provider agrees with the documented findings, assessment, and plan of care. Objective - Vital Signs Vital signs: Vital Signs Temp 99 F 10/04/20 11:20 Pulse 86 10/04/20 11:20 Resp 18 10/04/20 11:20 BP 102/66 10/04/20 11:20 Pulse Ox 92 L 10/04/20 11:20 Intake & Output 10/03/20 10/04/20 10/04/20 18:59 06:59 18:59 Intake Total 480 0 Output Total 800 800 Balance -320 -800 0 Weight 125.1 kg 126.5 kg Intake: Oral 480 0 Blood Product 0 Rc As-1 Unit 0 [id number] Output: Urine 800 Uretheral (Alves) 400 Stool 800 Other: Voiding Method Indwelling Catheter - Labs CBC & Chem 7: 10/04/20 07:13 10/04/20 07:13 Labs: Abnormal Lab Results - Last 24 Hours (Table) 09/29/20 10/03/20 10/03/20 Range/Units 13:20 16:33 21:07 RBC (4.30-5.90) m/uL Hgb (13.0-17.5) gm/dL Hct (39.0-53.0) % MCV (80.0-100.0) fL MCH (25.0-35.0) pg MCHC (31.0-37.0) g/dL RDW (11.5-15.5) % Sodium (137-145) mmol/L Chloride (98-107) mmol/L Carbon Dioxide (22-30) mmol/L BUN (9-20) mg/dL Glucose (74-99) mg/dL POC Glucose (mg/dL) 161 H 142 H (75-99) mg/dL Calcium (8.4-10.2) mg/dL Crossmatch See Detail 10/04/20 10/04/20 10/04/20 Range/Units 06:04 07:13 07:13 RBC 3.60 L (4.30-5.90) m/uL Hgb 6.9 L* (13.0-17.5) gm/dL Hct 24.9 L (39.0-53.0) % MCV 69.2 L (80.0-100.0) fL MCH 19.3 L (25.0-35.0) pg MCHC 27.8 L (31.0-37.0) g/dL RDW 25.6 H (11.5-15.5) % Sodium 136 L (137-145) mmol/L Chloride 108 H (98-107) mmol/L Carbon Dioxide 21 L (22-30) mmol/L BUN 6 L (9-20) mg/dL Glucose 136 H (74-99) mg/dL POC Glucose (mg/dL) 161 H (75-99) mg/dL Calcium 7.7 L (8.4-10.2) mg/dL Crossmatch 10/04/20 10/04/20 Range/Units 08:54 11:41 RBC (4.30-5.90) m/uL Hgb (13.0-17.5) gm/dL Hct (39.0-53.0) % MCV (80.0-100.0) fL MCH (25.0-35.0) pg MCHC (31.0-37.0) g/dL RDW (11.5-15.5) % Sodium (137-145) mmol/L Chloride (98-107) mmol/L Carbon Dioxide (22-30) mmol/L BUN (9-20) mg/dL Glucose (74-99) mg/dL POC Glucose (mg/dL) 156 H (75-99) mg/dL Calcium (8.4-10.2) mg/dL Crossmatch See Detail Microbiology - Last 24 Hours (Table) 10/01/20 12:36 Gram Stain - Final Other - Other Wound Culture - Final Staphylococcus aureus 10/01/20 18:00 Blood Culture - Preliminary Blood No Growth after 48 hours 10/01/20 12:36 Anaerobic Culture - Preliminary Other - Other
--- NOTE | 2020-10-04 15:28 | P.PN ---
Subjective from records: Patient is a 60-year-old male with a known history of hypertension, hyperlipidemia, obstructive sleep apnea on CPAP at home, diabetes type 2, history of multiple DVTs currently warfarin for anticoagulation, anxiety/depression and everyday smoker and history of marijuana use was sent to hospital ER by his primary care physician due to hemoglobin level 6.3. Patient had blood work-up done at the clinic yesterday and reported hemoglobin of 6.3 today. According to his daughter at bedside. Patient has been having lethargic and very weak and pale for the past 3 days. Denied any dark-colored stools. Patient has been having nausea and episodes of vomiting. Mainly bilious. No blood in the vomitus. Patient was also having worsening abdominal pain for the past 2 to 3 days. No fever no chills. No cough or sputum production. Patient does have some exertional dyspnea. CT of the abdomen pelvis showed new proximal to mid to distal jejunal small bowel obstruction. Transition point identified left lower quadrant ports are fisher spicious for concentric occluding mass neoplasm but this is unusual in the small bowel. Focal severe inflammation of infection is causing the obstruction at this level. Follow-up is advised. Chest x-ray showed NG tube in the GE junction or in the gastric fundus. No acute lung disease. Heart and lungs are unchanged. Laboratory data showed lactic acid level 2.8, INR 1.9, hemoglobin 7.6, WBC 7.5, MCV 62.3 and RDW 21.9 Stool for occult blood is negative Coronavirus PCR not detected. 09/30/2020 Patient is currently resting in the bed. Hemoglobin improved to 7.4. Patient is being continued on IV hydration nothing by mouth due to small bowel obstruction. General surgery is planning for exploratory laparotomy tomorrow. Patient is being continued on antibiotics. 10/01/2020 Patient was admitted to the hospital due to small bowel obstruction and possible mass and atelectasis anemia.. Status post exploratory laparotomy today with removal of infected mesh Small bowel resection Lysis of extensive adhesions Repair of incisional hernia. Patient is afebrile. Pain is fairly controlled. No nausea or vomiting. Hemoglobin is 7.4 this morning. Patient is being continued antibiotics in the f orm of Unasyn. Patient is iron deficient and low normal B12 level. 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 Also he had infected hernia mesh. He underwent exploratory laparotomy and removal of the infected mesh and small bowel resection yesterday on 10/01/2020. Today is postoperative day #1. He is lying in bed comfortable not in distress although he is complaining of from abdominal pain which is expected at surgical site. The wound is clean and closed. Wound VAC is in place. NG tube is in place. The patient remains nothing by mouth, no nausea vomiting. And he passing gas but no bowel movement. No chest pain or dyspnea., No other complaints. He is actually getting D5 half-normal saline at 1 25 mL/h. he is covered with Unasyn and IV vancomycin as per the ID team recommendation also he is on Protonix IV twice daily patient is with history of multiple DVT on Coumadin at home, patient told me he was taking 9 milligrams Friday to Friday and 10 mg on Friday, currently he is off Coumadin, will resume Coumadin was cleared by surgery team 10/03/2020 Patient clinically looks same to yesterday, his abdominal pain little better. Still passing gas only with no bowel movement. NG tube still in place with only a few milliliters of clear fluid. We're waiting for the surgery team to decide to discontinue the NG tube, probably today. Patient can start on his diet and Coumadin if cleared by surgery. he is covered with Unasyn and IV vancomycin as per the ID team recommendation also he is on Protonix IV twice daily Coumadin is on hold [he takes 9 mg daily except Friday he takes 10 mg] 10/04/2020 Patient was taken off NG tube and Alves catheter yesterday, however he still nothing by mouth except for some popsicles which is doing well with them. Abdominal pain is controlled, no nausea vomiting. Surgery team started clear liquid diet. Hemodynamically stable and patient hemoglobin today is 6.9. one unit of blood transfusion is ordered Patient remains on broad-spectrum antibiotics with Unasyn and IV vancomycin. He is also on Protonix oral twice a day starting today Objective - Vital Signs Vital signs: Vital Signs Temp 98.8 F 10/04/20 14:39 Pulse 86 10/04/20 14:39 Resp 16 10/04/20 14:39 BP 125/77 10/04/20 14:39 Pulse Ox 94 L 10/04/20 14:39 Intake & Output 10/03/20 10/04/20 10/04/20 18:59 06:59 18:59 Intake Total 480 790 Output Total 800 800 Balance -320 -800 790 Weight 125.1 kg 126.5 kg Intake: Oral 480 480 Blood Product 310 Rc As-1 Unit 310 [id number] Output: Urine 800 Uretheral (Alves) 400 Stool 800 Other: Voiding Method Indwelling Catheter - Exam -GENERAL: The patient is alert and oriented x3, not in any acute distress. obese HEENT: Pupils are round and equally reacting to light. EOMI. No scleral icterus. No conjunctival pallor. Normocephalic, atraumatic. No pharyngeal erythema. No thyromegaly. CARDIOVASCULAR: S1 and S2 present. No murmurs, rubs, or gallops. PULMONARY: Chest is clear to auscultation, no wheezing or crackles. -ABDOMEN: Soft, nontender, nondistended, normoactive bowel sounds. No palpable organomegaly. midline vertical incision below the umbilicus, wound is clean and close with no discharge. Umbilical site wound VAC is in place MUSCULOSKELETAL: No joint swelling or deformity. EXTREMITIES: No cyanosis, clubbing, or pedal edema. NEUROLOGICAL: Gross neurological examination did not reveal any focal deficits. SKIN: No rashes. no petechiae. - Labs CBC & Chem 7: 10/04/20 07:13 10/04/20 07:13 Labs: Abnormal Lab Results - Last 24 Hours (Table) 09/29/20 10/03/20 10/03/20 Range/Units 13:20 16:33 21:07 RBC (4.30-5.90) m/uL Hgb (13.0-17.5) gm/dL Hct (39.0-53.0) % MCV (80.0-100.0) fL MCH (25.0-35.0) pg MCHC (31.0-37.0) g/dL RDW (11.5-15.5) % Sodium (137-145) mmol/L Chloride (98-107) mmol/L Carbon Dioxide (22-30) mmol/L BUN (9-20) mg/dL Glucose (74-99) mg/dL POC Glucose (mg/dL) 161 H 142 H (75-99) mg/dL Calcium (8.4-10.2) mg/dL Crossmatch See Detail 10/04/20 10/04/20 10/04/20 Range/Units 06:04 07:13 07:13 RBC 3.60 L (4.30-5.90) m/uL Hgb 6.9 L* (13.0-17.5) gm/dL Hct 24.9 L (39.0-53.0) % MCV 69.2 L (80.0-100.0) fL MCH 19.3 L (25.0-35.0) pg MCHC 27.8 L (31.0-37.0) g/dL RDW 25.6 H (11.5-15.5) % Sodium 136 L (137-145) mmol/L Chloride 108 H (98-107) mmol/L Carbon Dioxide 21 L (22-30) mmol/L BUN 6 L (9-20) mg/dL Glucose 136 H (74-99) mg/dL POC Glucose (mg/dL) 161 H (75-99) mg/dL Calcium 7.7 L (8.4-10.2) mg/dL Crossmatch 10/04/20 10/04/20 Range/Units 08:54 11:41 RBC (4.30-5.90) m/uL Hgb (13.0-17.5) gm/dL Hct (39.0-53.0) % MCV (80.0-100.0) fL MCH (25.0-35.0) pg MCHC (31.0-37.0) g/dL RDW (11.5-15.5) % Sodium (137-145) mmol/L Chloride (98-107) mmol/L Carbon Dioxide (22-30) mmol/L BUN (9-20) mg/dL Glucose (74-99) mg/dL POC Glucose (mg/dL) 156 H (75-99) mg/dL Calcium (8.4-10.2) mg/dL Crossmatch See Detail Microbiology - Last 24 Hours (Table) 10/01/20 12:36 Gram Stain - Final Other - Other Wound Culture - Final Staphylococcus aureus 10/01/20 18:00 Blood Culture - Preliminary Blood No Growth after 48 hours 10/01/20 12:36 Anaerobic Culture - Preliminary Other - Other Assessment and Plan Assessment: -Acute small bowel obstruction with possible mass , infected hernia meshas per CT report. s/p exp laparotomy, infected mesh removal and small bowel resection Microcytic iron deficiency anemia Lactic acidosis, back to normal History of multiple DVTs currently on anticoagulation with Coumadin Obstructive sleep apnea on CPAP at home Hypertension Hyperlipidemia Diabetes type 2 [id number] Anxiety/depression Currently everyday smoker History of marijuana use Diabetic peripheral neuropathy Plan: this is a pleasant 60 years old male status post exploratory laparotomy, bowel resection andInfected mesh removal. Continue with antibiotic Unasyn and IV vancomycin as per ID team. Continue with bowel rest, resume diet as per surgery team when ready. Pain management.gentle IV hydration Follow-up biopsy results. follow-up recommendation by GI and surgery teams and ID team's. Labs and medication were reviewed.. Continue same treatment. Continue with symptomatic treatment. Resume home medication. Monitor lytes and vitals. DVT and GI prophylaxis. Further recommendations as per clinical course of the patient DVT prophylaxis: Subcutaneous heparin, resume Coumadin per surgery team GI Prophylaxis: Ppi PT/OT: Recommended home health care versus subacute rehab Prognosis is guarded
[2020-10-04 16:16] LABS: Anisocytosis Marked; HGB 7.7 gm/dL (13.0-17.5); Hypochromasia Marked; MCH 19.9 pg (25.0-35.0); MCHC 27.4 g/dL (31.0-37.0); MCV 72.5 fL (80.0-100.0); Mean Platelet Volume 6.8; Microcytosis Marked; Platelet Count 291 k/uL (150-450); Poikilocytosis Marked; RBC 3.87 m/uL (4.30-5.90); WBC 6.4 k/uL (3.8-10.6)
[2020-10-04 16:18] LABS: RDW 25.1 % (11.5-15.5)
[2020-10-04 16:49] LABS: Glucose,Whole Blood 143 mg/dL (75-99)
--- NOTE | 2020-10-04 17:28 | PN ---
PROGRESS NOTE DATE OF SERVICE: 10/04/2020 REASON FOR FOLLOWUP: Infected abdominal mesh. INTERVAL HISTORY: The patient is currently afebrile. The patient is breathing comfortably. The patient's abdominal pain is currently controlled. No chest pain, shortness of breath or cough. No vomiting or diarrhea. PHYSICAL EXAMINATION: Blood pressure is 125/77 with a pulse of 83, temperature 98.8. She is 94% on room air. General description is a middle-aged male lying in bed in no distress. RESPIRATORY SYSTEM: Unlabored breathing. Clear to auscultation anteriorly. HEART: S1, S2. Regular rate and rhythm. ABDOMEN: Soft. Mildly distended. No guarding or rigidity. LABS: Hemoglobin is 7.7, white count 6.4, creatinine 0.86. Abdominal culture positive for MSSA. DIAGNOSTIC IMPRESSION AND PLAN: Patient with MSSA abdominal mesh infection, status post removal of the mesh. Blood culture negative. Antibiotic adjusted to cefazolin 2 grams q.8 hours for at least 2 weeks. Local wound care with continue supportive care. MMODL / IJN: [id number] /
[2020-10-04] MEDS ORDERED: AMPICILLIN-SULBACTAM 3 GM in SODIUM CHLORIDE 0.9% 100 ML IVPB SCH (20:00)
[2020-10-04] MEDS: PANTOPRAZOLE 40 MG TABLET PO SCH (20:33)
[2020-10-04] MEDS: lisinopriL 20 MG TAB PO SCH (20:33)
[2020-10-04] MEDS: DULoxetine HCL 60 MG CAPSULE.DR PO SCH (20:33)
[2020-10-04] MEDS: traZODone HCL 50 MG TAB PO SCH (20:33)
[2020-10-04] MEDS: ATORVASTATIN 80 MG TAB PO SCH (20:33)
[2020-10-04] MEDS ORDERED: FAMOTIDINE 20 MG TAB PO SCH (21:00)
[2020-10-04 21:06] LABS: Glucose,Whole Blood 173 mg/dL (75-99)
[2020-10-05] MEDS: D5-0.45% NACL WITH KCL 20MEQ/L 1,000 ML IV SCH ×3 (06:18→20:21)
[2020-10-05 06:27] LABS: Glucose,Whole Blood 150 mg/dL (75-99)
[2020-10-05] MEDS: INSULIN ASPART (NovoLOG) 100 UNIT/ML VIAL SQ SCH ×4 (06:32→20:25)
[2020-10-05 07:54] LABS: Anisocytosis Marked; Basophils % (A) 1 %; Eosinophils # (A) 0.4 k/uL (0-0.7); Eosinophils % (A) 7 %; HCT 27.5 % (39.0-53.0); Hypochromasia Marked; Lymphocytes # (A) 0.9 k/uL (1.0-4.8); Lymphocytes % (A) 18 %; MCH 20.6 pg (25.0-35.0); MCHC 29.2 g/dL (31.0-37.0); MCV 70.5 fL (80.0-100.0); Mean Platelet Volume 7.9; Microcytosis Marked; Monocytes # (A) 0.3 k/uL (0-1.0); Monocytes % (A) 5 %; Neutrophils # (A) 3.5 k/uL (1.3-7.7); Neutrophils % (A) 68 %; Platelet Count 297 k/uL (150-450); Poikilocytosis Marked; WBC 5.2 k/uL (3.8-10.6)
[2020-10-05 08:09] LABS: African American GFR (CKD) >90 (>60 ml/min/1.73 sqM); Non-African American GFR(CKD) >90 (>60 ml/min/1.73 sqM)
[2020-10-05] MEDS: GABAPENTIN 300 MG CAP PO SCH ×3 (09:14→20:20)
[2020-10-05] MEDS: CYANOCOBALAMIN 500 MCG TAB PO SCH (09:14)
[2020-10-05] MEDS: HEPARIN SODIUM,PORCINE 5,000 UNIT/ML 1 ML VIAL SQ SCH ×2 (09:14→20:20)
[2020-10-05] MEDS: PANTOPRAZOLE 40 MG TABLET PO SCH ×2 (09:14→20:20)
[2020-10-05] MEDS: diphenhydrAMINE 25 MG CAP PO SCH ×2 (09:15→20:20)
[2020-10-05] MEDS: HYDROCORTISONE 1% CREAM 30 GM TUBE TOPICAL SCH ×2 (09:16→22:38)
[2020-10-05] MEDS: ALVIMOPAN 12 MG CAPSULE PO SCH ×2 (09:16→20:20)
[2020-10-05 09:38] LABS: Polychromasia Present
--- NOTE | 2020-10-05 09:58 | P.PN ---
Subjective Progress Note Date: 10/05/20 Principal diagnosis: Severe symptomatic microcytic hypochromic anemia and abdominal pain . This is a pleasant 60-year-old white male patient admitted to the hospital with acute small bowel obstruction. He presented with abdominal pain, nausea, and vomiting for 2 days prior to hospitalization. He was also noted to have severe symptomatic anemia with a hemoglobin of 7.6 requiring 1 unit of PRBC transfusion. He is post op day #4 exploratory laparotomy, was noted to have a 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, infected hernia mesh, incisional hernia, and adhesions. Today he is seen and evaluated sitting up at the bedside. He denies any evidence of GI bleed. He has not had a bowel movement since surgery, he is stating he has passing status. He denies any abdominal pain, nausea, or vomiting. He has been advanced to clear liquid diet and is tolerating well. He is now status post 2 units of PRBC transfusion this admission. Today's hemoglobin is stable at 8.0. He is not having any signs of GI bleed. Pathology is still pending. Objective - Vital Signs Vital signs: Vital Signs Temp 98.1 F 10/05/20 08:00 Pulse 84 10/05/20 08:00 Resp 16 10/05/20 08:00 BP 157/70 10/05/20 08:00 Pulse Ox 96 10/05/20 08:00 Intake & Output 10/04/20 10/05/20 10/05/20 18:59 06:59 18:59 Intake Total 1270 240 Output Total 600 1000 Balance 670 -760 Weight 151.5 kg Intake: Oral 960 240 Blood Product 310 Rc As-1 Unit 310 [id number] Output: Urine 600 600 Stool 400 Other: Voiding Method Indwelling Catheter - Exam General appearance: The patient is alert, oriented, appears in no acute distress. HET: Head is normocephalic and atraumatic. Conjunctiva pink. Sclera anicteric. . Neck: Supple without lymphadenopathy. Abdomen: Soft, surgical incision clean dry and intact, nondistended with bowel sounds. No guarding or rigidity. Extremities: Normal skin color and turgor. No pedal edema Skin: No rashes, no jaundice Neurological: No focal deficits. Alert and oriented 3. - Labs CBC & Chem 7: 10/05/20 07:34 10/05/20 07:34 Labs: Abnormal Lab Results - Last 24 Hours (Table) 09/29/20 10/04/20 10/04/20 Range/Units 13:20 08:54 11:41 RBC (4.30-5.90) m/uL Hgb (13.0-17.5) gm/dL Hct (39.0-53.0) % MCV (80.0-100.0) fL MCH (25.0-35.0) pg MCHC (31.0-37.0) g/dL RDW (11.5-15.5) % Lymphocytes # (1.0-4.8) k/uL POC Glucose (mg/dL) 156 H (75-99) mg/dL Crossmatch See Detail See Detail 10/04/20 10/04/20 10/04/20 Range/Units 15:50 16:47 20:37 RBC 3.87 L (4.30-5.90) m/uL Hgb 7.7 L (13.0-17.5) gm/dL Hct 28.0 L (39.0-53.0) % MCV 72.5 L (80.0-100.0) fL MCH 19.9 L (25.0-35.0) pg MCHC 27.4 L (31.0-37.0) g/dL RDW 25.1 H (11.5-15.5) % Lymphocytes # (1.0-4.8) k/uL POC Glucose (mg/dL) 143 H 173 H (75-99) mg/dL Crossmatch 10/05/20 10/05/20 Range/Units 06:21 07:34 RBC 3.90 L (4.30-5.90) m/uL Hgb 8.0 L (13.0-17.5) gm/dL Hct 27.5 L (39.0-53.0) % MCV 70.5 L (80.0-100.0) fL MCH 20.6 L (25.0-35.0) pg MCHC 29.2 L (31.0-37.0) g/dL RDW 26.0 H (11.5-15.5) % Lymphocytes # 0.9 L (1.0-4.8) k/uL POC Glucose (mg/dL) 150 H (75-99) mg/dL Crossmatch Microbiology - Last 24 Hours (Table) 10/01/20 18:00 Blood Culture - Preliminary Blood No Growth after 72 hours 10/01/20 12:36 Gram Stain - Final Other - Other Wound Culture - Final Staphylococcus aureus Assessment and Plan (1) Microcytic hypochromic anemia Narrative/Plan: This patient has severe microcytic hypochromic anemia consistent with iron deficiency anemia, status post 1 unit blood transfusion. Last EGD and colonoscopy more than 5 years ago. He is status post 2 units of PRBC transfusi on this admission. He still has no signs of GI bleed. 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 No plans for endoscopic evaluation. Current Visit: Yes Status: Acute Code(s): D50.9 - IRON DEFICIENCY ANEMIA, UNSPECIFIED SNOMED Code(s): 55343096 (2) Bowel obstruction Narrative/Plan: Computed tomography scan showed transition point in the distal jejunum in the left lower quadrant area with concentric thickening. Neoplasm cannot be excluded. Patient underwent exploratory laparotomy yesterday with Dr. 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 He had removal of infected mesh, small bowel resection, lysis of extensive adhesions, and repair of incisional hernia. Current Visit: Yes Status: Acute Code(s): K56.609 - UNSP INTESTNL OBST, UNSP TO PARTIAL VERSUS COMPLETE OBST SNOMED Code(s): 80475437 Plan: 1. Supportive care 2. Diet per surgical services 3. Pathology reviewed, no plans for endoscopic evaluation 4. Would recommend oncology consult Thank you for this consultation, we will sign off at this time Dr. Alyssia Arana I agree with the dictator's note, documented as a scribe by Ashley Aguilar.
--- NOTE | 2020-10-05 11:59 | P.PN ---
Subjective Progress Note Date: 10/05/20 CHIEF COMPLAINT: Abdominal pain HISTORY OF PRESENT ILLNESS: Patient is followed for 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, infected hernia mesh, incisional hernia and adhesions status post exploratory laparotomy, removal of infected mesh, small bowel resection, lysis of adhesions and repair of incisional hernia postop day #4. Patient is sitting up in bed. Patient reports some improvement in his abdominal pain. He denies any nausea or vomiting. He is currently on a clear liquid diet. He is passing gas. No bowel movement yet. He did receive a unit of blood yesterday hemoglobin has gone up from 6.9-8. Wound culture growing MSSA. Patient followed by infectious disease. He does have wound VAC in place. He is afebrile PHYSICAL EXAM: VITAL SIGNS: Reviewed. GENERAL: Well-developed in no acute distress. HEENT: No sclera icterus. Extraocular movements grossly intact. Moist buccal mucosa. Head is atraumatic, normocephalic. ABDOMEN: Soft. Nondistended. Incision clean dry and intact with wound VAC in place NEUROLOGIC: Alert and oriented. Cranial nerves II through XII grossly intact. ASSESSMENT: 1. 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, infected hernia mesh, incisional hernia and adhesions status post exploratory laparotomy, removal of infected mesh, small bowel resection, lysis of adhesions and repair of incisional hernia PLAN: -Okay from surgical standpoint to resume Coumadin -Patient is not ready for discharge yet. We will reevaluate tomorrow [facility] -continue clear liquid diet -Continue supportive care -Continue wound VAC -Continue antibiotics per ID -Continue pain medication as needed -GI prophylaxis Pepcid and DVT prophylaxis subcu heparin Physician Associate Designer note has been reviewed by physician. Signing provider agrees with the documented findings, assessment, and plan of care. Objective - Vital Signs Vital signs: Vital Signs Temp 98.1 F 10/05/20 08:00 Pulse 84 10/05/20 08:00 Resp 16 10/05/20 08:00 BP 157/70 10/05/20 08:00 Pulse Ox 96 10/05/20 08:00 Intake & Output 10/04/20 10/05/20 10/05/20 18:59 06:59 18:59 Intake Total 1270 240 Output Total 600 1000 400 Balance 670 -760 -400 Weight 151.5 kg Intake: Oral 960 240 Blood Product 310 Rc As-1 Unit 310 [id number] Output: Urine 600 600 400 Stool 400 Other: Voiding Method Indwelling Catheter Indwelling Catheter - Labs CBC & Chem 7: 10/05/20 07:34 10/05/20 07:34 Labs: Abnormal Lab Results - Last 24 Hours (Table) 10/04/20 10/04/20 10/04/20 Range/Units 08:54 15:50 16:47 RBC 3.87 L (4.30-5.90) m/uL Hgb 7.7 L (13.0-17.5) gm/dL Hct 28.0 L (39.0-53.0) % MCV 72.5 L (80.0-100.0) fL MCH 19.9 L (25.0-35.0) pg MCHC 27.4 L (31.0-37.0) g/dL RDW 25.1 H (11.5-15.5) % Lymphocytes # (1.0-4.8) k/uL POC Glucose (mg/dL) 143 H (75-99) mg/dL Crossmatch See Detail 10/04/20 10/05/20 10/05/20 Range/Units 20:37 06:21 07:34 RBC 3.90 L (4.30-5.90) m/uL Hgb 8.0 L (13.0-17.5) gm/dL Hct 27.5 L (39.0-53.0) % MCV 70.5 L (80.0-100.0) fL MCH 20.6 L (25.0-35.0) pg MCHC 29.2 L (31.0-37.0) g/dL RDW 26.0 H (11.5-15.5) % Lymphocytes # 0.9 L (1.0-4.8) k/uL POC Glucose (mg/dL) 173 H 150 H (75-99) mg/dL Crossmatch Microbiology - Last 24 Hours (Table) 10/01/20 12:36 Anaerobic Culture - Final Other - Other 10/01/20 18:00 Blood Culture - Preliminary Blood No Growth after 72 hours 10/01/20 12:36 Gram Stain - Final Other - Other Wound Culture - Final Staphylococcus aureus
[2020-10-05 12:00] LABS: Glucose,Whole Blood 168 mg/dL (75-99)
--- NOTE | 2020-10-05 13:17 | P.PN ---
Subjective from records: Patient is a 60-year-old male with a known history of hypertension, hyperlipidemia, obstructive sleep apnea on CPAP at home, diabetes type 2, history of multiple DVTs currently warfarin for anticoagulation, anxiety/depression and everyday smoker and history of marijuana use was sent to hospital ER by his primary care physician due to hemoglobin level 6.3. Patient had blood work-up done at the clinic yesterday and reported hemoglobin of 6.3 today. According to his daughter at bedside. Patient has been having lethargic and very weak and pale for the past 3 days. Denied any dark-colored stools. Patient has been having nausea and episodes of vomiting. Mainly bilious. No blood in the vomitus. Patient was also having worsening abdominal pain for the past 2 to 3 days. No fever no chills. No cough or sputum production. Patient does have some exertional dyspnea. CT of the abdomen pelvis showed new proximal to mid to distal jejunal small bowel obstruction. Transition point identified left lower quadrant ports are fisher spicious for concentric occluding mass neoplasm but this is unusual in the small bowel. Focal severe inflammation of infection is causing the obstruction at this level. Follow-up is advised. Chest x-ray showed NG tube in the GE junction or in the gastric fundus. No acute lung disease. Heart and lungs are unchanged. Laboratory data showed lactic acid level 2.8, INR 1.9, hemoglobin 7.6, WBC 7.5, MCV 62.3 and RDW 21.9 Stool for occult blood is negative Coronavirus PCR not detected. 09/30/2020 Patient is currently resting in the bed. Hemoglobin improved to 7.4. Patient is being continued on IV hydration nothing by mouth due to small bowel obstruction. General surgery is planning for exploratory laparotomy tomorrow. Patient is being continued on antibiotics. 10/01/2020 Patient was admitted to the hospital due to small bowel obstruction and possible mass and atelectasis anemia.. Status post exploratory laparotomy today with removal of infected mesh Small bowel resection Lysis of extensive adhesions Repair of incisional hernia. Patient is afebrile. Pain is fairly controlled. No nausea or vomiting. Hemoglobin is 7.4 this morning. Patient is being continued antibiotics in the f orm of Unasyn. Patient is iron deficient and low normal B12 level. 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 Also he had infected hernia mesh. He underwent exploratory laparotomy and removal of the infected mesh and small bowel resection yesterday on 10/01/2020. Today is postoperative day #1. He is lying in bed comfortable not in distress although he is complaining of from abdominal pain which is expected at surgical site. The wound is clean and closed. Wound VAC is in place. NG tube is in place. The patient remains nothing by mouth, no nausea vomiting. And he passing gas but no bowel movement. No chest pain or dyspnea., No other complaints. He is actually getting D5 half-normal saline at 1 25 mL/h. he is covered with Unasyn and IV vancomycin as per the ID team recommendation also he is on Protonix IV twice daily patient is with history of multiple DVT on Coumadin at home, patient told me he was taking 9 milligrams Friday to Friday and 10 mg on Friday, currently he is off Coumadin, will resume Coumadin was cleared by surgery team 10/03/2020 Patient clinically looks same to yesterday, his abdominal pain little better. Still passing gas only with no bowel movement. NG tube still in place with only a few milliliters of clear fluid. We're waiting for the surgery team to decide to discontinue the NG tube, probably today. Patient can start on his diet and Coumadin if cleared by surgery. he is covered with Unasyn and IV vancomycin as per the ID team recommendation also he is on Protonix IV twice daily Coumadin is on hold [he takes 9 mg daily except Friday he takes 10 mg] 10/04/2020 Patient was taken off NG tube and Alves catheter yesterday, however he still nothing by mouth except for some popsicles which is doing well with them. Abdominal pain is controlled, no nausea vomiting. Surgery team started clear liquid diet. Hemodynamically stable and patient hemoglobin today is 6.9. one unit of blood transfusion is ordered Patient remains on broad-spectrum antibiotics with Unasyn and IV vancomycin. He is also on Protonix oral twice a day starting today 10/05/2020 Patient is doing well clinically and postoperatively, he is tolerating liquid diet with minimal abdominal pain. Surgery team on the case and monitor him closely and the recommend 1 more day. Patient has oozing from his wound but not significant bleeding His breathing is stable. Surgery team recommended to restart his Coumadin. Pathology is negative for malignancy His creatinine is normal at 0.8, CBC is a stable and he got 2 units of blood transfusion with hemoglobin went up to 8.0 today. GI and surgery team on the case Patient may need a PICC line for IV antibiotics as per ID team he is currently covered with cefazolin for 2 week as per ID recommendation upon discharge Continue with Protonix as well. Patient is started on vitamin B12, as level was low 259. Physical therapy recommended subacute rehab versus ECF, manager social on the ca se Objective - Vital Signs Vital signs: Vital Signs Temp 98.1 F 10/05/20 08:00 Pulse 80 10/05/20 12:00 Resp 18 10/05/20 12:00 BP 134/58 10/05/20 12:00 Pulse Ox 96 10/05/20 12:00 Intake & Output 10/04/20 10/05/20 10/05/20 18:59 06:59 18:59 Intake Total 1270 240 Output Total 600 1000 400 Balance 670 -760 -400 Weight 151.5 kg Intake: Oral 960 240 Blood Product 310 Rc As-1 Unit 310 [id number] Output: Urine 600 600 400 Stool 400 Other: Voiding Method Indwelling Catheter Indwelling Catheter - Exam -GENERAL: The patient is alert and oriented x3, not in any acute distress. obese HEENT: Pupils are round and equally reacting to light. EOMI. No scleral icterus. No conjunctival pallor. Normocephalic, atraumatic. No pharyngeal erythema. No thyromegaly. CARDIOVASCULAR: S1 and S2 present. No murmurs, rubs, or gallops. PULMONARY: Chest is clear to auscultation, no wheezing or crackles. -ABDOMEN: Soft, nontender, nondistended, normoactive bowel sounds. No palpable organomegaly. midline vertical incision below the umbilicus, wound is clean and close with no discharge. Umbilical site wound VAC is in place MUSCULOSKELETAL: No joint swelling or deformity. EXTREMITIES: No cyanosis, clubbing, or pedal edema. NEUROLOGICAL: Gross neurological examination did not reveal any focal deficits. SKIN: No rashes. no petechiae. - Labs CBC & Chem 7: 10/05/20 07:34 10/05/20 07:34 Labs: Abnormal Lab Results - Last 24 Hours (Table) 10/04/20 10/04/20 10/04/20 Range/Units 08:54 15:50 16:47 RBC 3.87 L (4.30-5.90) m/uL Hgb 7.7 L (13.0-17.5) gm/dL Hct 28.0 L (39.0-53.0) % MCV 72.5 L (80.0-100.0) fL MCH 19.9 L (25.0-35.0) pg MCHC 27.4 L (31.0-37.0) g/dL RDW 25.1 H (11.5-15.5) % Lymphocytes # (1.0-4.8) k/uL POC Glucose (mg/dL) 143 H (75-99) mg/dL Crossmatch See Detail 10/04/20 10/05/20 10/05/20 Range/Units 20:37 06:21 07:34 RBC 3.90 L (4.30-5.90) m/uL Hgb 8.0 L (13.0-17.5) gm/dL Hct 27.5 L (39.0-53.0) % MCV 70.5 L (80.0-100.0) fL MCH 20.6 L (25.0-35.0) pg MCHC 29.2 L (31.0-37.0) g/dL RDW 26.0 H (11.5-15.5) % Lymphocytes # 0.9 L (1.0-4.8) k/uL POC Glucose (mg/dL) 173 H 150 H (75-99) mg/dL Crossmatch 10/05/20 Range/Units 11:58 RBC (4.30-5.90) m/uL Hgb (13.0-17.5) gm/dL Hct (39.0-53.0) % MCV (80.0-100.0) fL MCH (25.0-35.0) pg MCHC (31.0-37.0) g/dL RDW (11.5-15.5) % Lymphocytes # (1.0-4.8) k/uL POC Glucose (mg/dL) 168 H (75-99) mg/dL Crossmatch Microbiology - Last 24 Hours (Table) 10/01/20 12:36 Anaerobic Culture - Final Other - Other 10/01/20 18:00 Blood Culture - Preliminary Blood No Growth after 72 hours 10/01/20 12:36 Gram Stain - Final Other - Other Wound Culture - Final Staphylococcus aureus Assessment and Plan Assessment: -Acute small bowel obstruction with possible mass , infected hernia meshas per CT report. s/p exp laparotomy, infected mesh removal and small bowel resection Microcytic iron deficiency anemia Lactic acidosis, back to normal History of multiple DVTs currently on anticoagulation with Coumadin Obstructive sleep apnea on CPAP at home Hypertension Hyperlipidemia Diabetes type 2 [id number] Anxiety/depression Currently everyday smoker History of marijuana use Diabetic peripheral neuropathy Plan: this is a pleasant 60 years old male status post exploratory laparotomy, bowel resection andInfected mesh removal. Continue with antibiotic Unasyn and IV vancomycin as per ID team. Advance diet as per surgery team . Pain management. follow-up recommendation by GI and surgery teams and ID team's. Monitor hemoglobin Labs and medication were reviewed.. Continue same treatment. Continue with symptomatic treatment. Resume home medication. Monitor lytes and vitals. DVT and GI prophylaxis. Further recommendations as per clinical course of the patient DVT prophylaxis: Subcutaneous heparin, resume Coumadin per surgery team GI Prophylaxis: Ppi PT/OT: Recommended home health care versus subacute rehab Prognosis is guarded
--- NOTE | 2020-10-05 16:28 | PN ---
PROGRESS NOTE DATE OF SERVICE: 10/05/2020 REASON FOR FOLLOWUP: Infected abdominal mesh. INTERVAL HISTORY: The patient is currently afebrile. The patient is breathing comfortably. The patient denies having any chest pain or shortness of breath or cough. Abdominal pain is currently controlled. No nausea, no vomiting, no diarrhea. PHYSICAL EXAMINATION: Blood pressure 134/58 with pulse of 80, temperature 98.1. He is 96% on room air. General description is a middle-aged male lying in bed in no distress. RESPIRATORY SYSTEM: Unlabored breathing. Clear to auscultation anteriorly. HEART: S1, S2. Regular rate and rhythm. ABDOMEN: Soft. No tenderness. LABS: Hemoglobin is 8.1, white count 5.2. Abdominal culture with MSSA. Blood culture has been negative. DIAGNOSTIC IMPRESSION AND PLAN: Patient with infected abdominal mesh, status post removal. Culture positive for MSSA. The patient will need cefazolin 2 grams q.8 hours for at least 2 to 3 weeks, depending on his clinical response. Local wound care with wound V.A.C. and close outpatient followup. MMODL / IJN: [id number] /
[2020-10-05 16:52] LABS: Glucose,Whole Blood 155 mg/dL (75-99)
[2020-10-05] MEDS: MORPHINE SULFATE 4 MG/ML SYRINGE IV PRN ×2 (19:44→22:48)
[2020-10-05] MEDS: lisinopriL 20 MG TAB PO SCH (20:20)
[2020-10-05] MEDS: traZODone HCL 50 MG TAB PO SCH (20:20)
[2020-10-05] MEDS: ATORVASTATIN 80 MG TAB PO SCH (20:20)
[2020-10-05] MEDS: DULoxetine HCL 60 MG CAPSULE.DR PO SCH (20:20)
[2020-10-05 20:26] LABS: Glucose,Whole Blood 147 mg/dL (75-99)
[2020-10-06 06:00] LABS: Glucose,Whole Blood 160 mg/dL (75-99)
[2020-10-06] MEDS: INSULIN ASPART (NovoLOG) 100 UNIT/ML VIAL SQ SCH ×3 (06:24→17:07)
[2020-10-06 08:09] LABS: Anisocytosis Marked; Basophils % (A) 1 %; Eosinophils # (A) 0.3 k/uL (0-0.7); Eosinophils % (A) 4 %; HCT 25.7 % (39.0-53.0); HGB 7.4 gm/dL (13.0-17.5); Hypochromasia Marked; Lymphocytes % (A) 16 %; MCH 20.1 pg (25.0-35.0); MCHC 28.7 g/dL (31.0-37.0); Mean Platelet Volume 7.7; Microcytosis Marked; Monocytes # (A) 0.3 k/uL (0-1.0); Monocytes % (A) 5 %; Neutrophils # (A) 4.5 k/uL (1.3-7.7); Neutrophils % (A) 73 %; Platelet Count 292 k/uL (150-450); Poikilocytosis Marked; RBC 3.67 m/uL (4.30-5.90); WBC 6.2 k/uL (3.8-10.6)
[2020-10-06 08:10] LABS: African American GFR (CKD) >90 (>60 ml/min/1.73 sqM); Non-African American GFR(CKD) 90 (>60 ml/min/1.73 sqM)
[2020-10-06 08:12] LABS: RDW 26.5 % (11.5-15.5)
[2020-10-06 08:36] LABS: Anion Gap 6 mmol/L; Blood Urea Nitrogen 8 mg/dL (9-20); Carbon Dioxide 24 mmol/L (22-30); Chloride 106 mmol/L (98-107); Glucose 121 mg/dL (74-99); Potassium 3.6 mmol/L (3.5-5.1); Sodium 136 mmol/L (137-145)
[2020-10-06 08:41] LABS: Polychromasia Present
[2020-10-06] MEDS: PANTOPRAZOLE 40 MG TABLET PO SCH (08:41)
[2020-10-06] MEDS: CYANOCOBALAMIN 500 MCG TAB PO SCH (08:41)
[2020-10-06] MEDS: GABAPENTIN 300 MG CAP PO SCH ×2 (08:41→16:29)
[2020-10-06] MEDS: ALVIMOPAN 12 MG CAPSULE PO SCH (08:42)
[2020-10-06] MEDS: HEPARIN SODIUM,PORCINE 5,000 UNIT/ML 1 ML VIAL SQ SCH ×2 (08:42→11:01)
[2020-10-06] MEDS: diphenhydrAMINE 25 MG CAP PO SCH ×2 (08:42→09:04)
[2020-10-06] MEDS: HYDROCORTISONE 1% CREAM 30 GM TUBE TOPICAL SCH (08:43)
[2020-10-06] MEDS: D5-0.45% NACL WITH KCL 20MEQ/L 1,000 ML IV SCH ×2 (09:04→14:34)
[2020-10-06 11:43] LABS: Glucose,Whole Blood 142 mg/dL (75-99)
[2020-10-06 12:29] VITALS: RESP 16
[2020-10-06] MEDS ORDERED: HYDROcodone/APAP 5-325MG 1 EACH TAB PO PRN (12:30)
--- NOTE | 2020-10-06 12:31 | P.PN ---
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 Patient is sitting up in bedside chair. Patient reports some improvement in his abdominal pain. He denies any nausea or vomiting. He is currently tolerating a regular diet. He is passing gas. No bowel movement yet. Wound culture growing MSSA. Patient followed by infectious disease. He does have wound VAC in place. He did have a temperature of 100 last night WBC 6.2 Hgb 7.4 PHYSICAL EXAM: VITAL SIGNS: Reviewed. GENERAL: Well-developed in no acute distress. HEENT: No sclera icterus. Extraocular movements grossly intact. Moist buccal mucosa. Head is atraumatic, normocephalic. ABDOMEN: Soft. Nondistended. Incision clean dry and intact with wound VAC in place NEUROLOGIC: Alert and oriented. Cranial nerves II through XII grossly intact. ASSESSMENT: 1. 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, infected hernia mesh, incisional hernia and adhesions status post exploratory laparotomy, removal of infected mesh, small bowel resection, lysis of adhesions and repair of incisional hernia PLAN: -Patient is stable for discharge from surgical standpoint when cleared by medicine service -Okay from surgical standpoint to resume Coumadin -Add Nowata for oral pain medication as needed -Continue supportive care -Continue wound VAC and patient has had insurance authorization approved for one back in the outpatient setting -Continue antibiotics per ID -Continue pain medication as needed -GI prophylaxis Pepcid and DVT prophylaxis subcu heparin Physician Abatement Worker note has been reviewed by physician. Signing provider agrees with the documented findings, assessment, and plan of care. Objective - Vital Signs Vital signs: Vital Signs Temp 98.2 F 10/06/20 08:00 Pulse 85 10/06/20 08:00 Resp 18 10/06/20 08:00 BP 122/71 10/06/20 08:00 Pulse Ox 96 10/06/20 08:00 Intake & Output 10/05/20 10/06/20 10/06/20 18:59 06:59 18:59 Intake Total 1200 Output Total 1125 1620 300 Balance 75 -1620 -300 Weight 149.3 kg Intake: Oral 1200 Output: Urine 1125 1620 300 Other: Voiding Method Indwelling Catheter Urinal # Voids 1 2 - Labs CBC & Chem 7: 10/06/20 07:27 10/06/20 07:27 Labs: Abnormal Lab Results - Last 24 Hours (Table) 10/05/20 10/05/20 10/06/20 Range/Units 16:50 20:25 05:59 RBC (4.30-5.90) m/uL Hgb (13.0-17.5) gm/dL Hct (39.0-53.0) % MCV (80.0-100.0) fL MCH (25.0-35.0) pg MCHC (31.0-37.0) g/dL RDW (11.5-15.5) % Sodium (137-145) mmol/L BUN (9-20) mg/dL Glucose (74-99) mg/dL POC Glucose (mg/dL) 155 H 147 H 160 H (75-99) mg/dL Calcium (8.4-10.2) mg/dL 10/06/20 10/06/20 10/06/20 Range/Units 07:27 07:27 11:41 RBC 3.67 L (4.30-5.90) m/uL Hgb 7.4 L (13.0-17.5) gm/dL Hct 25.7 L (39.0-53.0) % MCV 70.0 L (80.0-100.0) fL MCH 20.1 L (25.0-35.0) pg MCHC 28.7 L (31.0-37.0) g/dL RDW 26.5 H (11.5-15.5) % Sodium 136 L (137-145) mmol/L BUN 8 L (9-20) mg/dL Glucose 121 H (74-99) mg/dL POC Glucose (mg/dL) 142 H (75-99) mg/dL Calcium 8.0 L (8.4-10.2) mg/dL Microbiology - Last 24 Hours (Table) 10/01/20 18:00 Blood Culture - Preliminary Blood No Growth after 96 hours 10/01/20 12:36 Anaerobic Culture - Final Other - Other
[2020-10-06] MEDS ORDERED: LIDOCAINE 1% INJ 10MG/ML (20 ML MDV) ONE (12:55)
[2020-10-06 13:04] VITALS: BMI 47.2
[2020-10-06] MEDS ORDERED: LIDOCAINE 1% INJ 10MG/ML (20 ML MDV) SQ ONE (13:12)
--- NOTE | 2020-10-06 14:01 | IR ---
PICC LINE PLACEMENT: HISTORY: Infection requiring long-term antibiotic therapy PROCEDURE: Ultrasound and fluoroscopic guidance of PICC line placement. COMPLICATIONS: None ANESTHESIA: 1. 1% Lidocaine locally. FINDINGS/TECHNIQUE: The procedure was explained to the patient. The risks, complications, benefits and alternatives were discussed and any questions were answered. Informed consent was obtained. The patient was placed supine on the fluoroscopic table and prepped and draped in the usual sterile fash ion. Utilizing a 21 gauge needle and sonographic and fluoroscopic guidance, access in the left basi lic vein was achieved and there is placement of a 0.018 guidewire. The vein is patent. A 4-F sheath was placed over the guidewire. The guidewire and dilator were removed and a 4-F. PICC line was plac ed through the sheath with the tip at the level of the SVC. The sheath was removed, the catheter was flushed and sutured into position. The patient was stable throughout the procedure and remained sta ble upon discharge from the Department of Radiology. The vein puncture was patent under ultrasound. A chiang scale image was obtained to document patency of the vein punctured. All elements of the maximal barrier technique were utilized. FLUOROSCOPY TIME: 0.2 minutes one image submitted IMPRESSION: Successful PICC line placement under ultrasound and fluoroscopic guidance.
[2020-10-06 16:48] LABS: Glucose,Whole Blood 159 mg/dL (75-99)
[2020-10-06 17:12] VITALS: BP 121/56; PULSE 90; TEMP 98
--- NOTE | 2020-10-06 17:15 | PN ---
PROGRESS NOTE DATE OF SERVICE: 10/06/2020 REASON FOR FOLLOWUP: Infected abdominal mesh. INTERVAL HISTORY: The patient is currently afebrile. The patient is breathing comfortably. The patient denies having any chest pain or shortness of breath or cough. Denies any abdominal pain. No nausea, vomiting or diarrhea. PHYSICAL EXAMINATION: Blood pressure 118/56, pulse of 75, temperature 99. He is 96% on room air. General description is a middle-aged male up in the bed in no distress. RESPIRATORY SYSTEM: Unlabored breathing. Clear to auscultation anteriorly. HEART: S1, S2. Regular rate and rhythm. ABDOMEN: Soft. Wound is currently covered with a wound V.A.C. EXTREMITIES: Some trace edema of the feet. LABS: Hemoglobin is 7.4, white count 6.2, BUN of 8, creatinine 0.92. DIAGNOSTIC IMPRESSION AND PLAN: Patient with infected abdominal mesh, status post removal. Culture positive for MSSA. Anaerobe culture negative. Patient on cefazolin 2 grams q.8; to continue for 2 to 3 weeks depending on clinical response. Local wound care with wound V.A.C. and close outpatient followup. MMODL / IJN: [id number] /
[2020-10-06] MEDS ORDERED: WARFARIN 10 MG TAB PO ONE (18:00)
== END 2020-10-06 18:29 | disposition home health service (06) | DRG 330 ==
LOC: EC 12:40 → 3SCARD 15:24
PROVIDERS: ADMIT Internal Medicine; ATTEND Internal Medicine
PROC: 30233N1 Transfusion of Nonautologous Red Blood Cells into Peripheral Vein, Percutaneous Approach (ICD-10-PCS; 2020-09-30)
PROC: 0DN80ZZ Release Small Intestine, Open Approach (ICD-10-PCS; 2020-10-01)
PROC: 0WPF0JZ Removal of Synthetic Substitute from Abdominal Wall, Open Approach (ICD-10-PCS; 2020-10-01)
PROC: 0WQF0ZZ Repair Abdominal Wall, Open Approach (ICD-10-PCS; 2020-10-01)
PROC: 0DBA0ZZ Excision of Jejunum, Open Approach (ICD-10-PCS; principal; 2020-10-01 11:00)
PROC: 02HV33Z Insertion of Infusion Device into Superior Vena Cava, Percutaneous Approach (ICD-10-PCS; 2020-10-06)
PROC: B5181ZA Fluoroscopy of Superior Vena Cava using Low Osmolar Contrast, Guidance (ICD-10-PCS; 2020-10-06)
DX: K56.50 Intestinal adhesions [bands], unspecified as to partial versus complete obstruction (principal); E87.2 Acidosis; T85.79XA Infection and inflammatory reaction due to other internal prosthetic devices, implants and grafts, initial encounter; L98.495 Non-pressure chronic ulcer of skin of other sites with muscle involvement without evidence of necrosis; Z68.41 Body mass index [BMI] 40.0-44.9, adult; C17.9 Malignant neoplasm of small intestine, unspecified; K56.609 Unspecified intestinal obstruction, unspecified as to partial versus complete obstruction; Z86.718 Personal history of other venous thrombosis and embolism; E78.5 Hyperlipidemia, unspecified; D50.9 Iron deficiency anemia, unspecified; Z79.01 Long term (current) use of anticoagulants; Z86.14 Personal history of Methicillin resistant Staphylococcus aureus infection; E89.2 Postprocedural hypoparathyroidism; F17.200 Nicotine dependence, unspecified, uncomplicated; Z83.3 Family history of diabetes mellitus; Z82.49 Family history of ischemic heart disease and other diseases of the circulatory system; I10 Essential (primary) hypertension; F32.9 Major depressive disorder, single episode, unspecified; F41.9 Anxiety disorder, unspecified; G47.33 Obstructive sleep apnea (adult) (pediatric); F12.90 Cannabis use, unspecified, uncomplicated; E11.42 Type 2 diabetes mellitus with diabetic polyneuropathy; Z79.4 Long term (current) use of insulin; K43.2 Incisional hernia without obstruction or gangrene; E11.622 Type 2 diabetes mellitus with other skin ulcer; E66.01 Morbid (severe) obesity due to excess calories; B95.61 Methicillin susceptible Staphylococcus aureus infection as the cause of diseases classified elsewhere; Z96.651 Presence of right artificial knee joint; Z87.442 Personal history of urinary calculi; Z20.822 Contact with and (suspected) exposure to COVID-19
CPT/HCPCS: 36410; 36415; 71045; 74177; 76937; 80048; 80053; 80202; 82272; 82565; 82607; 82728; 82747; 83540; 83550; 83605; 83690; 83735; 84145; 84443; 84484; 85025; 85027; 85610; 85652; 85730; 86140; 86850; 86900; 86901; 86920; 87040; 87070; 87075; 87077; 87186; 87205; 87635; 88305; 88307; 88309; 93005; 94640

== ENCOUNTER 2020-10-16 16:14 | Emergency (ER) | payer MEDICARE ==
[2020-10-16 17:37] VITALS: BP 130/72; PULSE 72; RESP 18; TEMP 97.8
--- NOTE | 2020-10-16 19:39 | ED ---
General Adult HPI - General Chief complaint: Recheck/Abnormal Lab/Rx Stated complaint: extension for pic line broke off Time Seen by Provider: 10/16/20 19:20 Source: patient Mode of arrival: ambulatory Limitations: no limitations - History of Present Illness Initial comments: Dictation was produced using [employer] dictation software. please excuse any grammatical, word or spelling errors. This patient was cared for during a federal and state declared state of emergency secondary to Covid 19 Chief Complaint: 60-year-old male presents emergency department for PICC line malfunction History of Present Illness: This 60-year-old male presents to the emergency department for PICC line malfunction. Patient's PICC line broke yesterday. He was told to come to the emergency department by his at home nursing. Patient gets Ancef every 8 hours for infected hernia mesh. Patient's last dose of antibiotics was 3:30 PM yesterday. He is accompanied by his adopted daughter. The ROS documented in this emergency department record has been reviewed and confirmed by me. Those systems with pertinent positive or negative responses have been documented in the HPI. All other systems are other negative and/or noncontributory. PHYSICAL EXAM: General Impression: Alert and oriented x3, not in acute distress HEENT: Normocephalic atraumatic, extra-ocular movements intact, pupils equal and reactive to light bilaterally, mucous membranes moist. Cardiovascular: Heart regular rate and rhythm Chest: Able to complete full sentences, no retractions, no tachypnea Abdomen: abdomen soft, non-tender, non-distended, no organomegaly Musculoskeletal: Pulses present and equal in all extremities, no peripheral edema Motor: no focal deficits noted Neurological: CN II-XII grossly intact, no focal motor or sensory deficits noted Skin: Intact with no visualized rashes Psych: Normal affect and mood Left upper extremity: PICC line with fracture of the plastic tubing just proximal to the insertion site of the skin ED course:60 - year-old male presents to the emergency department for PICC line malfunction. Vital signs upon arrival are within acceptable limits. Patient's well-appearing. Patient is not was in the emergency department. He does not want to be admitted for PICC line replacement. He requests I contact his infectious disease doctor Dr. Lehman. Dr. Lehman was agreeable to have patient discharged with conversion to Keflex. Recommends Keflex 500 mg every 6 hours. Patient is agreeable plan. PICC line was removed by nurse. Prescription sent to patient's pharmacy. He is advised follow-up soon as possible with infectious disease. - Related Data Home Medications Medication Instructions Recorded Confirmed DULoxetine HCL [Cymbalta] 60 mg PO HS 10/08/17 10/16/20 metFORMIN HCL 1,000 mg PO BID 10/08/17 10/16/20 Glimepiride [Amaryl] 1 mg PO HS 11/20/18 10/16/20 Omeprazole [PriLOSEC] 40 mg PO HS 11/20/18 10/16/20 traZODone HCL 75 mg PO HS 11/20/18 10/16/20 Atorvastatin [Lipitor] 80 mg PO HS 07/07/19 10/16/20 Albuterol Sulfate [Proair Hfa] 2 puff INHALATION RT-Q6H PRN 04/30/20 10/16/20 Benazepril HCl 20 mg PO HS 04/30/20 10/16/20 Gabapentin [Neurontin] 300 mg PO TID 09/29/20 10/16/20 Hydrocortisone Cream 1 applic TOPICAL BID 09/29/20 10/16/20 [Hydrocortisone 1% Cream] Tiotropium Zearing [Spiriva 2 puff INHALATION RT-DAILY 09/29/20 10/16/20 Respimat] Triamterene-Hctz 37.5-25Mg 1 tab PO DAILY 09/29/20 10/16/20 [Maxzide 37.5-25] Warfarin [Coumadin] 9 mg PO [id number] 09/29/20 10/16/20 Warfarin [Coumadin] 12 mg PO ESQUIVEL 09/29/20 10/16/20 diphenhydrAMINE HCL [Benadryl] 25 mg PO BID 09/29/20 10/16/20 Previous Rx's Medication Instructions Recorded Cyanocobalamin [Vitamin B-12] 1,000 mcg PO DAILY tab 10/06/20 Docusate [Colace] 100 mg PO BID #30 capsule 10/06/20 HYDROcodone/APAP 5-325MG [[place] 1 tab PO Q6HR PRN 3 Days #12 tab 10/06/20 5-325] Pantoprazole [Protonix] 40 mg PO BID #60 tablet. 10/06/20 Cephalexin [Keflex] 500 mg PO Q6HR 5 Days #20 cap 10/16/20 Allergies Allergy/AdvReac Type Severity Reaction Status Date / Time No Known Allergies Allergy Verified 10/16/20 20:07 Review of Systems ROS Statement: Those systems with pertinent positive or pertinent negative responses have been documented in the HPI. ROS Other: All systems not noted in ROS Statement are negative. Past Medical History Past Medical History: Diabetes Mellitus, Deep Vein Thrombosis (DVT), Hyperlipidemia, Hypertension, Sleep Apnea/CPAP/BIPAP Additional Past Medical History / Comment(s): Open incisional area from umbilical hernia sx. NEEDS MORE HERNIA REPAIRS. STATES AWAITING TWYLA HIP REPLACEMENT. STATES CURRENT DVT LEFT LEG, HX OF KIDNEY STONES History of Any Multi-Drug Resistant Organisms: MRSA Date of last positivie culture/infection: 05/25/20 MDRO Source:: Abdomen Past Surgical History: Appendectomy, Hernia Repair, Joint Replacement Additional Past Surgical History / Comment(s): APPENDECTOMY? Right knee REPLACED, hernia x2, ABD AORTOGRAM 02/24/17. Hernia repair Mar,. 3/4 Parathyroid removal surgery 01/18/2020. hernia mesh removel 2020. tumor removal small intestine 2020. Past Anesthesia/Blood Transfusion Reactions: No Reported Reaction Past Psychological History: Anxiety, Depression Smoking Status: Current every day smoker Past Alcohol Use History: None Reported Past Drug Use History: Marijuana - Past Family History Mother History Unknown: Yes Family Medical History: Dementia, Diabetes Mellitus, Hyperlipidemia, Renal Disease Additional Family Medical History / Comment(s): dialysis Father Family Medical History: Coronary Artery Disease (CAD), Diabetes Mellitus General Exam Limitations: no limitations Course Vital Signs 10/16/20 17:34 Temperature 97.8 F Pulse Rate 72 Respiratory 18 Rate Blood Pressure 130/72 O2 Sat by Pulse 99 Oximetry Disposition Clinical Impression: Need for intravenous access Disposition: HOME SELF-CARE Condition: Fair Instructions (If sedation given, give patient instructions): Cephalexin (By mouth) Additional Instructions: It is important that he follow-up with infectious disease doctor for reevaluation of symptoms especially after being converted to oral pills. You are only given prescription 5 days however you may need more pills depending on your infectious disease appointment. Prescriptions: Cephalexin [Keflex] 500 mg PO Q6HR 5 Days #20 cap Is patient prescribed a controlled substance at d/c from ED?: No Referrals: Dominik,Sajjad, MD [STAFF PHYSICIAN] - 1-2 days Time of Disposition: 20:58
[2020-10-16] MEDS ORDERED: CEPHALEXIN 500MG STARTER PACK 4 CAP BTL PO STA (20:51)
== END 2020-10-16 21:28 | disposition home or self-care (01) ==
LOC: EC 16:14
DX: Z45.2 Encounter for adjustment and management of vascular access device (principal); E11.9 Type 2 diabetes mellitus without complications; E78.5 Hyperlipidemia, unspecified; F17.200 Nicotine dependence, unspecified, uncomplicated; I10 Essential (primary) hypertension; Z79.84 Long term (current) use of oral hypoglycemic drugs; Z86.718 Personal history of other venous thrombosis and embolism; F41.9 Anxiety disorder, unspecified; F32.9 Major depressive disorder, single episode, unspecified; F12.90 Cannabis use, unspecified, uncomplicated
CPT/HCPCS: 99283; 96374; J0690

== ENCOUNTER → 2020-11-11 | Outpatient (CLI) | payer MEDICARE ==
--- NOTE | 2020-11-12 12:29 | PE ---
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 Localization and attenuation correction CT scan was performed. Correlation to prior CT scan dated 09/29/2020, CT chest 09/23/2016 Chest and neck: There is no suspicious uptake. No cervical or supraclavicular adenopathy. No mediasti nal, axillary, or hilar adenopathy. Gynecomastia changes are present noted incidentally. Nodular dens ity present in the lingula, axial image 117 measures only 6 mm and is stable consistent with scar. No pleural or pericardial effusion. ABDOMEN: There is no evident liver mass. No suspicious uptake. There is no retroperitoneal or mesente reba adenopathy evident. Uptake along the bowel is likely physiologic. Soft tissue mass in the left lo wer quadrant is no longer seen, postop change noted to the bowel. There is no ascites. No pelvic juanjo opathy. Scarring present over the anterior abdomen is noted, mild uptake likely due to postop change. Osseous structures show no uptake. Degenerative disc changes, facet arthropathy noted in the lower franklin mbar spine, osteoarthritic change present within the hips. IMPRESSION: No suspicious hypermetabolic uptake is evident. Postop changes.
== END | disposition home or self-care (01) ==
LOC: RADPETMAIN 07:18
PROVIDERS: ATTEND Internal Medicine Hematology & Oncology
DX: C17.8 Malignant neoplasm of overlapping sites of small intestine (principal); E11.9 Type 2 diabetes mellitus without complications; Z98.890 Other specified postprocedural states
CPT/HCPCS: 78815; A9552

== ENCOUNTER 2020-11-16 08:15 | Day surgery (SDC) | payer MEDICARE ==
[2020-11-14 18:02] VITALS: BMI 39.4
[~2020-11-16 08:15] MED LIST changes: -ALPRAZolam 0.25 MG TAB PO PRN; -ALPRAZolam 0.5 MG TAB PO PRN; -ASPIRIN 325 MG TAB PO STA; +LACTATED RINGERS 1,000 ML IV SCH; -SODIUM CHLORIDE 0.9% 1,000 ML in EMPTY BAG 1 BAG IV ONE
[2020-11-16 08:57] VITALS: TEMP 97.8
[2020-11-16 09:02] LABS: Glucose,Whole Blood 111 mg/dL (75-99)
--- NOTE | 2020-11-16 09:17 | P.GSHP ---
History of Present Illness H&P Date: 11/16/20 Chief Complaint: GI bleed This is a 60-year-old male presents today for EGD and colonoscopy. He's had issues with GI bleed. His last table was a 8.6 Past Medical History Past Medical History: Asthma, Cancer, COPD, Diabetes Mellitus, Deep Vein Thrombosis (DVT), GERD/Reflux, Hyperlipidemia, Hypertension, Sleep Apnea/CPAP/BIPAP Additional Past Medical History / Comment(s): Open incisional area from umbilical hernia sx, hx infected mesh. AWAITING TWYLA HIP REPLACEMENT. Hx DVT LEFT LEG, HX OF KIDNEY STONES. Hx anemia w/ transfusions, found tumors in colon w/ blockage, Colon cancer diagnosed 10/01/20; has open wound w/ wound vac. Uses cpap. Edema BLE. History of Any Multi-Drug Resistant Organisms: MRSA Date of last positivie culture/infection: 05/25/20 MDRO Source:: Abdomen Past Surgical History: Appendectomy, Hernia Repair, Joint Replacement Additional Past Surgical History / Comment(s): Right knee REPLACED, hernia x2, ABD AORTOGRAM 02/24/17, Hernia repair w/ mesh removal 04/10/20. Hernia mesh removed 10/01/20. 3/4 Parathyroid removal surgery 01/18/2020. Tumor removal small intestine 10/01/20. Past Anesthesia/Blood Transfusion Reactions: No Reported Reaction Smoking Status: Current every day smoker - Past Family History Mother History Unknown: Yes Family Medical History: Dementia, Diabetes Mellitus, Hyperlipidemia, Renal Disease Additional Family Medical History / Comment(s): dialysis Father Family Medical History: Coronary Artery Disease (CAD), Diabetes Mellitus Medications and Allergies Home Medications Medication Instructions Recorded Confirmed Type DULoxetine HCL [Cymbalta] 60 mg PO HS 10/08/17 11/14/20 History metFORMIN HCL 1,000 mg PO BID 10/08/17 11/14/20 History Glimepiride [Amaryl] 1 mg PO HS 11/20/18 11/14/20 History Omeprazole [PriLOSEC] 40 mg PO HS 11/20/18 11/14/20 History traZODone HCL 75 mg PO HS 11/20/18 11/14/20 History Atorvastatin [Lipitor] 80 mg PO HS 07/07/19 11/14/20 History Albuterol Sulfate [Proair Hfa] 2 puff INHALATION RT-Q6H PRN 04/30/20 11/14/20 History Benazepril HCl 20 mg PO HS 04/30/20 11/14/20 History Gabapentin [Neurontin] 300 mg PO TID 09/29/20 11/14/20 History Hydrocortisone Cream 1 applic TOPICAL BID PRN 09/29/20 11/14/20 History [Hydrocortisone 1% Cream] Tiotropium [place] [Spiriva 2 puff INHALATION RT-DAILY 09/29/20 11/14/20 History Respimat] Triamterene-Hctz 37.5-25Mg 1 tab PO DAILY 09/29/20 11/14/20 History [Maxzide 37.5-25] Warfarin [Coumadin] 9 mg PO MOTUWETHFR 09/29/20 11/14/20 History Warfarin [Coumadin] 12 mg PO SUSA 09/29/20 11/14/20 History diphenhydrAMINE HCL [Benadryl] 25 mg PO BID PRN 09/29/20 11/14/20 History Docusate [Colace] 100 mg PO BID #30 capsule 10/06/20 11/14/20 Rx Calcium Carbonate/Vitamin D3 1 each PO DAILY 11/14/20 11/14/20 History [Calcium 600-Vit D3 10 mcg (400 Iu)] Ferrous Sulfate [Feosol] 325 mg PO BID 11/14/20 11/14/20 History Multivitamins, Thera [Multivitamin 1 tab PO HS 11/14/20 11/14/20 History (formulary)] traMADol HCL [Ultram] 50 mg PO Q6HR PRN 11/14/20 11/14/20 History Allergies Allergy/AdvReac Type Severity Reaction Status Date / Time No Known Allergies Allergy Verified 11/16/20 08:37 Surgical - Exam Vital Signs Temp Pulse Resp BP Pulse Ox 97.8 F 62 18 131/75 92 L 11/16/20 08:40 11/16/20 08:40 11/16/20 08:40 11/16/20 08:40 11/16/20 08:40 - General well developed, well nourished, no distress - Eyes PERRL - ENT normal pinna - Neck no masses - Respiratory normal expansion - Cardiovascular Rhythm: regular - Abdomen Abdomen: soft, non tender Results - Labs Abnormal Lab Results - Last 24 Hours (Table) 11/16/20 Range/Units 08:47 POC Glucose (mg/dL) 111 H (75-99) mg/dL Assessment and Plan Assessment: Anemia, GI bleed we'll perform EGD and colonoscopy
[2020-11-16] MEDS ORDERED: PROPOFOL 10 MG/ML 20 ML VIAL IV ONE (09:45)
[2020-11-16] MEDS ORDERED: LIDOCAINE 1% INJ 10MG/ML (20 ML MDV) ONE (09:45)
--- NOTE | 2020-11-16 10:17 | P.OP ---
Date of Procedure: 11/16/20 Preoperative Diagnosis: GI bleed Postoperative Diagnosis: Antral gastritis Procedure(s) Performed: EGD Colonoscopy Anesthesia: MAC Surgeon: Guido Jacobson Pathology: other (Antrum) Condition: stable Disposition: PACU Description of Procedure: The patient's placed on the endoscopy table in the lateral position. He received IV suture. The gastroscope was oropharynx past esophagus and stomach. Scope was then placed through the pylorus. The first and second portion of duodenum appeared normal. Scope was then brought back the antrum this appeared mildly inflamed. A biopsies performed. Scope was unretroflexed and remainder the stomach appeared normal. The GE junction was at 40 cm. The distal esophagus appeared normal. The proximal esophagus. Normal. Scope withdrawn for patient. There is no evidence of the upper GI bleed. Next digital rectal exam was performed which revealed no abnormalities. Flexible colonoscope was then placed patient anus and passed throughout the colon. Scope passed into the right colon secondary to tortuosity the valve. Patient is very obese abdomen. I was unable to maneuver the scope into the right colon. At this point the scope was withdrawn. The transverse colon and descending colon appeared normal. In the sigmoid colon was a few scattered diverticula. Scope was then brought back the rectum this appeared normal. Scope was withdrawn for patient. There is no evidence of any GI bleedcolon or upper endoscopy
[2020-11-16 10:37] VITALS: BP 143/79; PULSE 74; RESP 18
== END 2020-11-16 11:12 | disposition home or self-care (01) ==
LOC: ORWHC2ENDO 08:15
PROVIDERS: ATTEND Surgery
DX: K29.71 Gastritis, unspecified, with bleeding (principal); K63.89 Other specified diseases of intestine; K31.9 Disease of stomach and duodenum, unspecified; K57.30 Diverticulosis of large intestine without perforation or abscess without bleeding; J44.9 Chronic obstructive pulmonary disease, unspecified; E11.9 Type 2 diabetes mellitus without complications; K21.9 Gastro-esophageal reflux disease without esophagitis; I10 Essential (primary) hypertension; E78.5 Hyperlipidemia, unspecified; G47.33 Obstructive sleep apnea (adult) (pediatric); F12.90 Cannabis use, unspecified, uncomplicated; Z79.01 Long term (current) use of anticoagulants; Z79.84 Long term (current) use of oral hypoglycemic drugs; Z79.899 Other long term (current) drug therapy; Z85.9 Personal history of malignant neoplasm, unspecified; Z86.718 Personal history of other venous thrombosis and embolism; Z99.89 Dependence on other enabling machines and devices; Z86.14 Personal history of Methicillin resistant Staphylococcus aureus infection; Z83.3 Family history of diabetes mellitus; Z83.438 Family history of other disorder of lipoprotein metabolism and other lipidemia
CPT/HCPCS: 88305; 45378; 43239; J2001; J2704

== ENCOUNTER 2021-02-08 13:38 | Emergency (ER) | payer MEDICARE ==
[2021-02-08 14:08] VITALS: RESP 16; TEMP 98.1
[2021-02-08] MEDS ORDERED: MORPHINE SULFATE 4 MG/ML SYRINGE IV STA (15:10)
--- NOTE | 2021-02-08 15:21 | ED ---
General Adult HPI - General Chief complaint: Abdominal Pain Stated complaint: Abd Pain Time Seen by Provider: 02/08/21 14:59 Source: patient Mode of arrival: wheelchair Limitations: no limitations - History of Present Illness Initial comments: Dictation was produced using [employer] dictation software. please excuse any grammatical, word or spelling errors. Chief Complaint: 60-year-old male presents with abdominal pain History of Present Illness: Patient is 60-year-old male presents to the emergency department for abdominal pain. Patient has a history of abdominal wall hernia with infected mesh status post removal of infected mesh. States that he has epigastric abdominal pain. No radiation. Pain is not severe. It is worse with palpation. No fevers. No nausea vomiting. No diarrhea. No constitutional symptoms The ROS documented in this emergency department record has been reviewed and confirmed by me. Those systems with pertinent positive or negative responses have been documented in the HPI. All other systems are other negative and/or noncontributory. PHYSICAL EXAM: General Impression: Alert and oriented x3, not in acute distress HEENT: Normocephalic atraumatic, extra-ocular movements intact, pupils equal and reactive to light bilaterally, mucous membranes moist. Cardiovascular: Heart regular rate and rhythm Chest: Able to complete full sentences, no retractions, no tachypnea Abdomen: abdomen soft, mild tenderness to the epigastric area just right of midline non-distended, no organomegaly Musculoskeletal: Pulses present and equal in all extremities, no peripheral edema Motor: no focal deficits noted Neurological: CN II-XII grossly intact, no focal motor or sensory deficits noted Skin: Intact with no visualized rashes Psych: Normal affect and mood ED course:-year-old male presents with abdominal pain. He has history of abdominal wall hernia and infected mesh vital signs upon arrival are within acceptable limits. Patient's well-appearing at bedside. He has no other GI symptoms. Laboratory evaluation obtained. CBC is unremarkable. Metabolic panel is negative. No leukocytosis and abdominal labs are benign. Abdominal x-ray shows no obstruction. Patient reevaluated at 4:30 PM found to be stable medical condition. At this point there is no high-risk features. She is benign labs wi th normal x-ray. He is well-appearing at bedside watching TV in no acute distress. Does not have any significant GI symptoms at this time. Patient advised to follow up with general surgery. - Related Data Home Medications Medication Instructions Recorded Confirmed DULoxetine HCL [Cymbalta] 60 mg PO HS 10/08/17 11/14/20 metFORMIN HCL [Glucophage] 1,000 mg PO BID 10/08/17 11/14/20 Glimepiride [Amaryl] 1 mg PO HS 11/20/18 11/14/20 Omeprazole [PriLOSEC] 40 mg PO HS 11/20/18 11/14/20 traZODone HCL 75 mg PO HS 11/20/18 11/14/20 Atorvastatin [Lipitor] 80 mg PO HS 07/07/19 11/14/20 Albuterol Sulfate [Proair Hfa] 2 puff INHALATION RT-Q6H PRN 04/30/20 11/14/20 Benazepril HCl 20 mg PO HS 04/30/20 11/14/20 Gabapentin [Neurontin] 300 mg PO TID 09/29/20 11/14/20 Hydrocortisone Cream 1 applic TOPICAL BID PRN 09/29/20 11/14/20 [Hydrocortisone 1% Cream] Tiotropium [place] [Spiriva 2 puff INHALATION RT-DAILY 09/29/20 11/14/20 Respimat] Triamterene-Hctz 37.5-25Mg 1 tab PO DAILY 09/29/20 11/14/20 [Maxzide 37.5-25] Warfarin [Coumadin] 9 mg PO MOTUWETHFR 09/29/20 11/14/20 Warfarin [Coumadin] 12 mg PO SUSA 09/29/20 11/14/20 diphenhydrAMINE HCL [Benadryl] 25 mg PO BID PRN 09/29/20 11/14/20 Calcium Carbonate/Vitamin D3 1 each PO DAILY 11/14/20 11/14/20 [Calcium 600-Vit D3 10 mcg (400 Iu)] Ferrous Sulfate [Feosol] 325 mg PO BID 11/14/20 11/14/20 Multivitamins, Thera [Multivitamin 1 tab PO HS 11/14/20 11/14/20 (formulary)] traMADol HCL [Ultram] 50 mg PO Q6HR PRN 11/14/20 11/14/20 Previous Rx's Medication Instructions Recorded Docusate [Colace] 100 mg PO BID #30 capsule 10/06/20 Allergies Allergy/AdvReac Type Severity Reaction Status Date / Time No Known Allergies Allergy Verified 02/08/21 14:09 Review of Systems ROS Statement: Those systems with pertinent positive or pertinent negative responses have been documented in the HPI. ROS Other: All systems not noted in ROS Statement are negative. Past Medical History Past Medical History: Asthma, Cancer, COPD, Diabetes Mellitus, Deep Vein Thrombosis (DVT), GERD/Reflux, Hyperlipidemia, Hypertension, Sleep Apnea/CPAP/BIPAP Additional Past Medical History / Comment(s): Open incisional area from umbilical hernia sx, hx infected mesh. AWAITING TWYAL HIP REPLACEMENT. Hx DVT LEFT LEG, HX OF KIDNEY STONES. Hx anemia w/ transfusions, found tumors in colon w/ blockage, Colon cancer diagnosed 10/01/20; has open wound w/ wound vac. Uses cpap. Edema BLE. History of Any Multi-Drug Resistant Organisms: MRSA Date of last positivie culture/infection: 05/25/20 MDRO Source:: Abdomen Past Surgical History: Appendectomy, Hernia Repair, Joint Replacement Additional Past Surgical History / Comment(s): Right knee REPLACED, hernia x2, ABD AORTOGRAM 02/24/17, Hernia repair w/ mesh removal 04/10/20. Hernia mesh removed 10/01/20. 3/4 Parathyroid removal surgery 01/18/2020. Tumor removal small intestine 10/01/20. hernia mesh removel 2020. tumor removal small intestine 2020. Past Anesthesia/Blood Transfusion Reactions: No Reported Reaction Past Psychological History: Anxiety, Depression Smoking Status: Current every day smoker Past Alcohol Use History: None Reported Past Drug Use History: Marijuana - Past Family History Mother History Unknown: Yes Family Medical History: Dementia, Diabetes Mellitus, Hyperlipidemia, Renal Disease Additional Family Medical History / Comment(s): dialysis Father Family Medical History: Coronary Artery Disease (CAD), Diabetes Mellitus General Exam Limitations: no limitations Course Vital Signs 02/08/21 14:04 Temperature 98.1 F Pulse Rate 82 Respiratory 16 Rate Blood Pressure 99/63 O2 Sat by Pulse 97 Oximetry Medical Decision Making - Lab Data Result diagrams: 02/08/21 15:21 02/08/21 15:21 Lab Results 02/08/21 02/08/21 Range/Units 15:21 15:21 WBC 7.2 (3.8-10.6) k/uL RBC 4.35 (4.30-5.90) m/uL Hgb 12.5 L (13.0-17.5) gm/dL Hct 38.9 L (39.0-53.0) % MCV 89.4 (80.0-100.0) fL MCH 28.8 (25.0-35.0) pg MCHC 32.2 (31.0-37.0) g/dL RDW 18.6 H (11.5-15.5) % Plt Count 246 (150-450) k/uL MPV 6.6 Neutrophils % 73 % Lymphocytes % 16 % Monocytes % 5 % Eosinophils % 4 % Basophils % 1 % Neutrophils # 5.2 (1.3-7.7) k/uL Lymphocytes # 1.2 (1.0-4.8) k/uL Monocytes # 0.3 (0-1.0) k/uL Eosinophils # 0.3 (0-0.7) k/uL Basophils # 0.0 (0-0.2) k/uL Anisocytosis Slight Sodium 137 (137-145) mmol/L Potassium 4.4 (3.5-5.1) mmol/L Chloride 103 (98-107) mmol/L Carbon Dioxide 27 (22-30) mmol/L Anion Gap 7 mmol/L BUN 14 (9-20) mg/dL Creatinine 0.87 (0.66-1.25) mg/dL Est GFR (CKD-EPI)AfAm >90 (>60 ml/min/1.73 sqM) Est GFR (CKD-EPI)NonAf >90 (>60 ml/min/1.73 sqM) Glucose 124 H (74-99) mg/dL Calcium 8.5 (8.4-10.2) mg/dL Total Bilirubin 0.4 (0.2-1.3) mg/dL AST 39 (17-59) U/L ALT 56 H (4-49) U/L Alkaline Phosphatase 86 (38-126) U/L Total Protein 6.1 L (6.3-8.2) g/dL Albumin 3.3 L (3.5-5.0) g/dL Lipase 63 (23-300) U/L Disposition Clinical Impression: Abdominal pain Disposition: HOME SELF-CARE Condition: Good Instructions (If sedation given, give patient instructions): Abdominal Pain (ED) Is patient prescribed a controlled substance at d/c from ED?: No Referrals: Guido Jacobson MD [STAFF PHYSICIAN] - 1-2 days
[2021-02-08 15:30] LABS: Anisocytosis Slight; Basophils % (A) 1 %; Eosinophils # (A) 0.3 k/uL (0-0.7); Eosinophils % (A) 4 %; HCT 38.9 % (39.0-53.0); HGB 12.5 gm/dL (13.0-17.5); Lymphocytes # (A) 1.2 k/uL (1.0-4.8); Lymphocytes % (A) 16 %; MCH 28.8 pg (25.0-35.0); MCHC 32.2 g/dL (31.0-37.0); MCV 89.4 fL (80.0-100.0); Mean Platelet Volume 6.6; Monocytes # (A) 0.3 k/uL (0-1.0); Monocytes % (A) 5 %; Neutrophils # (A) 5.2 k/uL (1.3-7.7); Neutrophils % (A) 73 %; Platelet Count 246 k/uL (150-450); RBC 4.35 m/uL (4.30-5.90); RDW 18.6 % (11.5-15.5); WBC 7.2 k/uL (3.8-10.6)
[2021-02-08 15:47] LABS: ALT 56 U/L (4-49); AST 39 U/L (17-59); African American GFR (CKD) >90 (>60 ml/min/1.73 sqM); Albumin 3.3 g/dL (3.5-5.0); Alkaline Phosphatase 86 U/L (38-126); Anion Gap 7 mmol/L; Blood Urea Nitrogen 14 mg/dL (9-20); Calcium 8.5 mg/dL (8.4-10.2); Carbon Dioxide 27 mmol/L (22-30); Chloride 103 mmol/L (98-107); Glucose 124 mg/dL (74-99); Lipase 63 U/L (23-300); Non-African American GFR(CKD) >90 (>60 ml/min/1.73 sqM); Potassium 4.4 mmol/L (3.5-5.1); Sodium 137 mmol/L (137-145); Total Bilirubin 0.4 mg/dL (0.2-1.3); Total Protein 6.1 g/dL (6.3-8.2)
--- NOTE | 2021-02-08 16:22 | XR ---
EXAMINATION TYPE: XR abdomen acute w cxr DATE OF EXAM: 02/08/2021 COMPARISON: NONE HISTORY: Pain TECHNIQUE: Single view of the chest and 2 views of the abdomen are submitted. FINDINGS: Single view of the chest fails demonstrate evidence for acute pulmonary disease. There is no evidence for pneumoperitoneum. The bowel gas pattern is unremarkable as there is air throughout nondilated small and large bowel. No sizeable air fluid levels.No mass effects are seen. No unusual calcifications. IMPRESSION: 1. Unremarkable study.
[2021-02-08 17:00] VITALS: BP 141/79; PULSE 89
== END 2021-02-08 16:59 | disposition home or self-care (01) ==
LOC: EC 13:38
DX: R10.13 Epigastric pain (principal); E11.9 Type 2 diabetes mellitus without complications; I10 Essential (primary) hypertension; J44.9 Chronic obstructive pulmonary disease, unspecified; E78.5 Hyperlipidemia, unspecified; K21.9 Gastro-esophageal reflux disease without esophagitis; F32.9 Major depressive disorder, single episode, unspecified; F41.9 Anxiety disorder, unspecified; F17.200 Nicotine dependence, unspecified, uncomplicated; F12.90 Cannabis use, unspecified, uncomplicated; Z79.01 Long term (current) use of anticoagulants; Z79.84 Long term (current) use of oral hypoglycemic drugs; Z79.51 Long term (current) use of inhaled steroids; Z79.891 Long term (current) use of opiate analgesic; Z79.899 Other long term (current) drug therapy; Z82.49 Family history of ischemic heart disease and other diseases of the circulatory system; Z83.3 Family history of diabetes mellitus; Z83.49 Family history of other endocrine, nutritional and metabolic diseases; Z85.038 Personal history of other malignant neoplasm of large intestine; Z86.718 Personal history of other venous thrombosis and embolism
CPT/HCPCS: 36415; 93005; 80053; 83690; 85025; 74022; 96374; 99284; J2270

== ENCOUNTER 2021-02-20 12:03 | Observation (INO) | payer MEDICARE ==
[2021-02-20] MEDS ORDERED: SODIUM CHLORIDE 0.9% 500 ML 500 ML IV STA (12:19)
--- NOTE | 2021-02-20 12:27 | ED ---
General Adult HPI - General Chief complaint: Dizziness Stated complaint: low BP Source: patient, family, RN notes reviewed, old records reviewed Mode of arrival: wheelchair Limitations: no limitations - History of Present Illness Initial comments: 60-year-old white male, alert and oriented 4, presents to the emergency room after being sent by his home care nurse for hypotension and dizziness. Patient states that he was hospitalized and had a hernia repair here in September of 2020. Patient has Had continuous abdominal pain since and has been seen here for that but discharged to follow up with the surgeon. Patient states that he has had abdominal pain for past 3 weeks and has an appointment with his surgeon on March 14 for that. Patient states that he has not had a bowel movement in 5 days. He denies any nausea vomiting or fevers. Family states that he did have some vomiting last week but that has resolved. Patient states that he was sent to the emergency room today just for the dizziness and low blood pressure. He states he feels better when sitting worse with standing. -: week(s) (3) Location: abdomen Radiation: non-radiation Severity scale (1-10): 7 Quality: constant Consistency: constant Improves with: other (Sitting) Worsens with: other (Palpation) Associated Symptoms: other (Dizziness today, constipation for 5 days) - Related Data Home Medications Medication Instructions Recorded Confirmed DULoxetine HCL [Cymbalta] 60 mg PO HS 10/08/17 02/20/21 metFORMIN HCL [Glucophage] 1,000 mg PO BID 10/08/17 02/20/21 Glimepiride [Amaryl] 1 mg PO HS 11/20/18 02/20/21 Omeprazole [PriLOSEC] 40 mg PO HS 11/20/18 02/20/21 traZODone HCL 75 mg PO HS 11/20/18 02/20/21 Atorvastatin [Lipitor] 80 mg PO HS 07/07/19 02/20/21 Albuterol Sulfate [Proair Hfa] 2 puff INHALATION RT-Q6H PRN 04/30/20 02/20/21 Benazepril HCl 20 mg PO HS 04/30/20 02/20/21 Gabapentin [Neurontin] 300 mg PO TID 09/29/20 02/20/21 Tiotropium [place] [Spiriva 2 puff INHALATION RT-DAILY 09/29/20 02/20/21 Respimat] Triamterene-Hctz 37.5-25Mg 1 tab PO DAILY 09/29/20 02/20/21 [Maxzide 37.5-25] Warfarin [Coumadin] 9 mg PO WE 09/29/20 02/20/21 Warfarin [Coumadin] 12 mg PO SUMOTUTHFRSA 09/29/20 02/20/21 Calcium Carbonate/Vitamin D3 2 tab PO DAILY 11/14/20 02/20/21 [Calcium 600-Vit D3 10 mcg (400 Iu)] Ferrous Sulfate [Feosol] 325 mg PO BID 11/14/20 02/20/21 Multivitamins, Thera [Multivitamin 1 tab PO HS 11/14/20 02/20/21 (formulary)] Aspirin EC [Ecotrin Low Dose] 81 mg PO DAILY 02/20/21 02/20/21 Allergies Allergy/AdvReac Type Severity Reaction Status Date / Time No Known Allergies Allergy Verified 02/20/21 14:21 Review of Systems ROS Statement: Those systems with pertinent positive or pertinent negative responses have been documented in the HPI. ROS Other: All systems not noted in ROS Statement are negative. Past Medical History Past Medical History: Asthma, Cancer, COPD, Diabetes Mellitus, Deep Vein Thrombosis (DVT), GERD/Reflux, Hyperlipidemia, Hypertension, Sleep Apnea/CPAP/BIPAP Additional Past Medical History / Comment(s): Open incisional area from umbilical hernia sx, hx infected mesh. AWAITING TWYLA HIP REPLACEMENT. Hx DVT LEFT LEG, HX OF KIDNEY STONES. Hx anemia w/ transfusions, found tumors in colon w/ blockage, Colon cancer diagnosed 10/01/20; has open wound w/ wound vac. Uses cpap. Edema BLE. History of Any Multi-Drug Resistant Organisms: MRSA Date of last positivie culture/infection: 05/25/20 MDRO Source:: Abdomen Past Surgical History: Appendectomy, Hernia Repair, Joint Replacement Additional Past Surgical History / Comment(s): Right knee REPLACED, hernia x2, ABD AORTOGRAM 02/24/17, Hernia repair w/ mesh removal 04/10/20. Hernia mesh removed 10/01/20. 3/4 Parathyroid removal surgery 01/18/2020. Tumor removal small intestine 10/01/20. hernia mesh removel 2020. tumor removal small intestine 2020. Past Anesthesia/Blood Transfusion Reactions: No Reported Reaction Past Psychological History: Anxiety, Depression Smoking Status: Current every day smoker Past Alcohol Use History: None Reported Past Drug Use History: Marijuana - Past Family History Mother History Unknown: Yes Family Medical History: Dementia, Diabetes Mellitus, Hyperlipidemia, Renal Disease Additional Family Medical History / Comment(s): dialysis Father Family Medical History: Coronary Artery Disease (CAD), Diabetes Mellitus General Exam Limitations: no limitations General appearance: alert, in no apparent distress Head exam: Present: atraumatic, normocephalic, normal inspection Eye exam: Present: normal appearance, PERRL, EOMI. Absent: scleral icterus, conjunctival injection, periorbital swelling ENT exam: Present: normal exam, normal oropharynx, mucous membranes moist Neck exam: Present: normal inspection, full ROM. Absent: tenderness, men ingismus, lymphadenopathy, thyromegaly Respiratory exam: Present: normal lung sounds bilaterally. Absent: respiratory distress, wheezes, rales, rhonchi, stridor, chest wall tenderness, accessory muscle use Cardiovascular Exam: Present: regular rate, normal rhythm, normal heart sounds. Absent: systolic murmur, diastolic murmur, rubs, gallop, clicks, JVD GI/Abdominal exam: Present: distended, other (Abdominal incision site clean and dry and intact) Extremities exam: Present: normal inspection, full ROM, normal capillary refill, pedal edema (Trace). Absent: tenderness, joint swelling, calf tenderness Back exam: Present: full ROM. Absent: tenderness, CVA tenderness (R), CVA tenderness (L), muscle spasm, paraspinal tenderness, vertebral tenderness Neurological exam: Present: alert, oriented X3, CN II-XII intact Psychiatric exam: Present: normal affect, normal mood Skin exam: Present: warm, dry, intact, normal color. Absent: rash, cyanosis, diaphoretic, erythema, petechiae, pallor, mottled Course Vital Signs 02/20/21 02/20/21 02/20/21 12:03 14:34 15:41 Temperature 97.9 F Pulse Rate 80 69 65 Respiratory 18 18 18 Rate Blood Pressure 85/59 97/55 100/56 O2 Sat by Pulse 97 100 98 Oximetry EKG Findings - EKG Results: EKG: WNL, sinus rhythm (Ventricular rate of 70, IL interval 0.186, QRS of 0.96, QTC of 0.426) Medical Decision Making - Medical Decision Making Chest x-ray shows no acute cardiopulmonary process. KUB shows a nonobstructive bowel gas pattern with no visceromegaly or pneumoperitoneum. WBC count is 11.3, glucose is 136, BUN is 29 creatinine is 1.51. Patient was given IV fluids. Troponin is negative at 0.[address] elevation normal sinus rhythm. Case discussed with Dr. Weber, will admit patient to the hospital for persistent hypotension - Lab Data Result diagrams: 02/20/21 12:54 02/20/21 12:54 Lab Results 02/20/21 02/20/21 02/20/21 Range/Units 12:54 12:54 12:54 WBC 11.3 H (3.8-10.6) k/uL RBC 4.58 (4.30-5.90) m/uL Hgb 13.5 (13.0-17.5) gm/dL Hct 40.2 (39.0-53.0) % MCV 88.0 (80.0-100.0) fL MCH 29.5 (25.0-35.0) pg MCHC 33.5 (31.0-37.0) g/dL RDW 16.8 H (11.5-15.5) % Plt Count 427 (150-450) k/uL MPV 6.9 Neutrophils % 84 % Lymphocytes % 9 % Monocytes % 4 % Eosinophils % 1 % Basophils % 0 % Neutrophils # 9.5 H (1.3-7.7) k/uL Lymphocytes # 1.0 (1.0-4.8) k/uL Monocytes # 0.5 (0-1.0) k/uL Eosinophils # 0.1 (0-0.7) k/uL Basophils # 0.0 (0-0.2) k/uL Anisocytosis Slight Sodium 134 L (137-145) mmol/L Potassium 4.8 (3.5-5.1) mmol/L Chloride 103 (98-107) mmol/L Carbon Dioxide 20 L (22-30) mmol/L Anion Gap 11 mmol/L BUN 29 H (9-20) mg/dL Creatinine 1.51 H (0.66-1.25) mg/dL Est GFR (CKD-EPI)AfAm 57 (>60 ml/min/1.73 sqM) Est GFR (CKD-EPI)NonAf 49 (>60 ml/min/1.73 sqM) Glucose 136 H (74-99) mg/dL Plasma Lactic Acid Jose 1.3 (0.7-2.0) mmol/L Calcium 8.7 (8.4-10.2) mg/dL Total Bilirubin 0.5 (0.2-1.3) mg/dL AST 38 (17-59) U/L ALT 72 H (4-49) U/L Alkaline Phosphatase 131 H (38-126) U/L Troponin I (0.000-0.034) ng/mL Total Protein 6.7 (6.3-8.2) g/dL Albumin 3.5 (3.5-5.0) g/dL Urine Color Urine Appearance (Clear) Urine pH (5.0-8.0) Ur Specific [place] (1.001-1.035) Urine Protein (Negative) Urine Glucose (UA) (Negative) Urine Ketones (Negative) Urine Blood (Negative) Urine Nitrite (Negative) Urine Bilirubin (Negative) Urine Urobilinogen (<2.0) mg/dL Ur Leukocyte Esterase (Negative) Urine RBC (0-5) /hpf Urine WBC (0-5) /hpf Ur Squamous Epith Cells (0-4) /hpf Urine Bacteria (None) /hpf Hyaline Casts (0-2) /lpf Urine Mucus (None) /hpf 02/20/21 02/20/21 Range/Units 12:54 14:44 WBC (3.8-10.6) k/uL RBC (4.30-5.90) m/uL Hgb (13.0-17.5) gm/dL Hct (39.0-53.0) % MCV (80.0-100.0) fL MCH (25.0-35.0) pg MCHC (31.0-37.0) g/dL RDW (11.5-15.5) % Plt Count (150-450) k/uL MPV Neutrophils % % Lymphocytes % % Monocytes % % Eosinophils % % Basophils % % Neutrophils # (1.3-7.7) k/uL Lymphocytes # (1.0-4.8) k/uL Monocytes # (0-1.0) k/uL Eosinophils # (0-0.7) k/uL Basophils # (0-0.2) k/uL Anisocytosis Sodium (137-145) mmol/L Potassium (3.5-5.1) mmol/L Chloride (98-107) mmol/L Carbon Dioxide (22-30) mmol/L Anion Gap mmol/L BUN (9-20) mg/dL Creatinine (0.66-1.25) mg/dL Est GFR (CKD-EPI)AfAm (>60 ml/min/1.73 sqM) Est GFR (CKD-EPI)NonAf (>60 ml/min/1.73 sqM) Glucose (74-99) mg/dL Plasma Lactic Acid Jose (0.7-2.0) mmol/L Calcium (8.4-10.2) mg/dL Total Bilirubin (0.2-1.3) mg/dL AST (17-59) U/L ALT (4-49) U/L Alkaline Phosphatase (38-126) U/L Troponin I <0.012 (0.000-0.034) ng/mL Total Protein (6.3-8.2) g/dL Albumin (3.5-5.0) g/dL Urine Color Yellow Urine Appearance Cloudy (Clear) Urine pH 5.5 (5.0-8.0) Ur Specific [place] 1.028 (1.001-1.035) Urine Protein Trace H (Negative) Urine Glucose (UA) Negative (Negative) Urine Ketones Negative (Negative) Urine Blood Negative (Negative) Urine Nitrite Negative (Negative) Urine Bilirubin Negative (Negative) Urine Urobilinogen 4.0 (<2.0) mg/dL Ur Leukocyte Esterase Trace H (Negative) Urine RBC 2 (0-5) /hpf Urine WBC 5 (0-5) /hpf Ur Squamous Epith Cells 1 (0-4) /hpf Urine Bacteria Rare H (None) /hpf Hyaline Casts 37 H (0-2) /lpf Urine Mucus Few H (None) /hpf Disposition Clinical Impression: SENTHIL (acute kidney injury), Dehydration, Abdominal pain Disposition: ADMITTED IP TO THIS [facility] Condition: Fair Decision Date: 02/20/21 Decision Time: 15:44
[2021-02-20 13:11] LABS: Anisocytosis Slight; Basophils % (A) 0 %; Eosinophils # (A) 0.1 k/uL (0-0.7); Eosinophils % (A) 1 %; HCT 40.2 % (39.0-53.0); HGB 13.5 gm/dL (13.0-17.5); Lymphocytes % (A) 9 %; MCH 29.5 pg (25.0-35.0); MCHC 33.5 g/dL (31.0-37.0); Mean Platelet Volume 6.9; Monocytes # (A) 0.5 k/uL (0-1.0); Monocytes % (A) 4 %; Neutrophils # (A) 9.5 k/uL (1.3-7.7); Neutrophils % (A) 84 %; Platelet Count 427 k/uL (150-450); RBC 4.58 m/uL (4.30-5.90); RDW 16.8 % (11.5-15.5); WBC 11.3 k/uL (3.8-10.6)
[2021-02-20 13:29] LABS: Albumin 3.5 g/dL (3.5-5.0); Calcium 8.7 mg/dL (8.4-10.2); Potassium 4.8 mmol/L (3.5-5.1); Total Bilirubin 0.5 mg/dL (0.2-1.3); Total Protein 6.7 g/dL (6.3-8.2)
--- NOTE | 2021-02-20 13:33 | XR ---
EXAMINATION TYPE: XR chest 2V DATE OF EXAM: 02/20/2021 COMPARISON: Chest x-ray October 02, 2020 HISTORY: Dizziness and hypotension. TECHNIQUE: Frontal and lateral views of the chest are obtained. FINDINGS: There is mild chronic parenchymal changes without suspicious focal air space opacity, pleu ral effusion, or pneumothorax seen. The cardiac silhouette size is within normal limits currently. M ultilevel spurring in the spine is present. IMPRESSION: No acute cardiopulmonary process.
--- NOTE | 2021-02-20 13:36 | XR ---
EXAMINATION TYPE: XR KUB DATE OF EXAM: 02/20/2021 1:20 PM CLINICAL HISTORY: Hypotension and pain. TECHNIQUE: Two Upright KUB images of the abdomen are obtained. COMPARISON: CT abdomen and pelvis September 29, 2020 and abdominal x-ray August 25, 2019. FINDINGS: Scattered gas is seen in non-distended small bowel loops. Few small bowel loops left midabd omen slightly more prominent. Gas and fecal material is seen in non-distended colon. There is no visc eromegaly or pneumoperitoneum appreciated. There is 5 mm round density right upper quadrant medially of uncertain etiology without CT correlate. The lung bases are clear. Advanced degenerative change ri ght hip joint redemonstrated. Moderate to advanced narrowing and spurring left hip joint again seen. IMPRESSION: Overall nonspecific but favor nonobstructive bowel gas pattern.
[2021-02-20] MEDS ORDERED: SODIUM CHLORIDE 0.9% 500 ML 500 ML IV ONE ×2 (14:37→15:30)
[2021-02-20] MEDS ORDERED: KETOROLAC 15 MG/ML 1 ML VIAL IVP STA (15:11)
[2021-02-20 15:21] LABS: Appearance,Urine Cloudy (Clear); Bacteria,Urine Rare /hpf; Bilirubin,Urine Negative (Negative); Blood,Urine Negative (Negative); Color,Urine Yellow; Glucose,Urine (UA) Negative (Negative); Hyaline Casts,Urine 37 /lpf (0-2); Ketones,Urine Negative (Negative); Leukocyte Esterase,Urine Trace (Negative); Mucus,Urine Few /hpf; Nitrite,Urine Negative (Negative); PH, Urine 5.5 (5.0-8.0); Protein,Urine Trace (Negative); RBC,Urine 2 /hpf (0-5); Specific Gravity,Urine 1.028 (1.001-1.035); Squamous Epithelial Cell,Urine 1 /hpf (0-4); WBC,Urine 5 /hpf (0-5)
[2021-02-20] MEDS: SODIUM CHLORIDE 0.9% 1,000 ML IV SCH ×2 (15:41→23:40)
[2021-02-20] MEDS ORDERED: ACETAMINOPHEN TAB 325 MG TAB PO PRN (15:44)
[2021-02-20] MEDS ORDERED: NALOXONE 0.4 MG/ML 1 ML VIAL IV PRN (15:44)
[2021-02-20] MEDS ORDERED: PIPERACILLIN-TAZOBACTAM 3.375 GM in SODIUM CHLORIDE 0.9% 100 ML IVPB SCH (17:00)
--- NOTE | 2021-02-20 17:48 | CT ---
EXAMINATION TYPE: CT abdomen pelvis wo con DATE OF EXAM: 02/20/2021 COMPARISON: PET CT scan 11/11/2020 HISTORY: abdominal tenderness CT DLP: 1648.4 mGycm Automated exposure control for dose reduction was used. Images obtained from the diaphragm to the floor the pelvis without contrast. Lung bases are clear. There is no pleural effusion. Heart size is normal. There is no pericardial eff usion. Liver spleen stomach pancreas gallbladder appear intact. The bile ducts are not dilated. There is 2 cm low-density left adrenal mass. Kidneys have normal size. There is no hydronephrosis. There i s 3 mm calculus lower pole right kidney. The ureters are not dilated. There are surgical clips from previous small bowel surgery. There is oval-shaped intermediate density mass involving the right anterior abdominal wall. This measures 5 cm in thickness and 12 cm in lengt h. There is no ascites. There is no evidence of free air. There is no mesenteric edema. There is no evid ence of a bowel obstruction. Lumbar vertebra have normal alignment. There is no compression fracture. The bony pelvis is intact. I see no bony destructive process. There is moderate osteoarthritic narrowing of the right hip joint space. There is mild osteoarthritis left hip joint. There is no evidence of a fracture. Appendix is not seen. There is no evidence of thickened appendix. IMPRESSION: Previous small bowel surgery. No evidence of a bowel obstruction. Large mass involving the right side anterior abdominal wall consistent with acute muscular hematoma that is a change compared to old jimmie m.
[2021-02-20] MEDS ORDERED: ALBUTEROL NEBULIZED 2.5 MG/3 ML INHALATION PRN (20:53)
[2021-02-20] MEDS: traZODone HCL 50 MG TAB PO SCH (22:09)
[2021-02-20] MEDS: DULoxetine HCL 60 MG CAPSULE.DR PO SCH (22:09)
[2021-02-20] MEDS: ATORVASTATIN 80 MG TAB PO SCH (22:10)
[2021-02-20] MEDS: GABAPENTIN 300 MG CAP PO SCH (22:10)
[2021-02-20 22:14] LABS: Anisocytosis Slight; Basophils % (A) 0 %; Eosinophils # (A) 0.1 k/uL (0-0.7); Eosinophils % (A) 2 %; HCT 41.1 % (39.0-53.0); HGB 12.9 gm/dL (13.0-17.5); Hypochromasia Slight; Lymphocytes # (A) 1.1 k/uL (1.0-4.8); Lymphocytes % (A) 12 %; MCH 28.7 pg (25.0-35.0); MCHC 31.3 g/dL (31.0-37.0); MCV 91.7 fL (80.0-100.0); Monocytes # (A) 0.4 k/uL (0-1.0); Monocytes % (A) 4 %; Neutrophils # (A) 7.1 k/uL (1.3-7.7); Neutrophils % (A) 80 %; Platelet Count 350 k/uL (150-450); RBC 4.48 m/uL (4.30-5.90); RDW 16.9 % (11.5-15.5); WBC 8.9 k/uL (3.8-10.6)
[2021-02-20 22:21] LABS: African American GFR (CKD) 68 (>60 ml/min/1.73 sqM); Anion Gap 10 mmol/L; Blood Urea Nitrogen 30 mg/dL (9-20); Calcium 8.3 mg/dL (8.4-10.2); Carbon Dioxide 19 mmol/L (22-30); Chloride 104 mmol/L (98-107); Glucose 124 mg/dL (74-99); Non-African American GFR(CKD) 59 (>60 ml/min/1.73 sqM); Potassium 5.4 mmol/L (3.5-5.1); Sodium 133 mmol/L (137-145)
[2021-02-20 22:23] LABS: INR 2.1 (<1.2); Partial Thromboplastin Time 28.7 sec (22.0-30.0); Prothrombin Time 20.6 sec (9.0-12.0)
--- NOTE | 2021-02-20 22:59 | P.HPIM ---
History of Present Illness This is a pleasant 60 years old male with past medical history of asthma/COPD, diabetes mellitus, hypertension, hyperlipidemia, sleep apnea, history of the venous thrombosis on Coumadine He was sent to the hospital by his wound care nurse when noticed his blood pressure was on the low side to 76/40 and he was a bit lethargic and sleepy more than usual. Patient is on blood pressure medication and last time was last night. Also patient feels dizzy as well but denies chest pain. He has some exertional dyspnea. Also patient has been complaining from right-sided abdominal pain for the last 3 weeks, and vomited twice during these 3 weeks.. Is eating well but his belly is constipated for the last 4-5 days. He is a smoker smokes about 1 pack per day and he wants to quit after counseling and he likes to take nicotine patch. No alcohol or illicit tracts. He is also complaining of from bilateral leg pain he has history of 2 stents in his left leg Patient was hypotensive on admission at 85/59 and his blood pressure improved currently 207/57 Repeat labs showing WBC normal at 8.9, mild anemia 12.9, platelet level was normal. INR is 2.1 which is therapeutic range. Sodium is 133, potassium slightly elevated at 5.4. Acute kidney injury with improving creatinine 1.5 down to 1.3. Liver enzymes with no significant elevation. Troponin is negative less than 0.012. Urinalysis is still suspicious of infection. EKG showing normal sinus rhythm at [address]-T changes Chest x-ray: No acute process. KUB showing overall nonspecific but favor nonobstructive bowel gas pattern. CT of the abdomen and pelvis: No contrast: 2 cm low-density left adrenal mass, 3 mm lower right kidney calculus. Right anterior abdominal wall oval-shaped density and mass Review of Systems CONSTITUTIONAL: No fever, no malaise, no fatigue. HEENT: No recent visual problems or hearing problems. Denied any sore throat. CARDIOVASCULAR: No orthopnea, PND, no palpitations, no syncope. PULMONARY: No shortness of breath, no cough, no hemoptysis. GASTROINTESTINAL: No diarrhea, no nausea, no vomiting, Normoactive bowel sounds. NEUROLOGICAL: No headaches, no weakness, no numbness. HEMATOLOGICAL: Denies any bleeding or petechiae. GENITOURINARY: Denies any burning micturition, frequency, or urgency. MUSCULOSKELETAL/RHEUMATOLOGICAL: Denies any joint pain, swelling, or any muscle pain. ENDOCRINE: Denies any polyuria or polydipsia. Past Medical History Past Medical History: Asthma, Cancer, COPD, Diabetes Mellitus, Deep Vein Thrombosis (DVT), GERD/Reflux, Hyperlipidemia, Hypertension, Sleep Apnea/CPAP/BIPAP Additional Past Medical History / Comment(s): Open incisional area from umbilical hernia sx, hx infected mesh. AWAITING TWYLA HIP REPLACEMENT. Hx DVT LEFT LEG, HX OF KIDNEY STONES. Hx anemia w/ transfusions, found tumors in colon w/ blockage, Colon cancer diagnosed 10/01/20; has open wound w/ wound vac. Uses cpap. Edema BLE. History of Any Multi-Drug Resistant Organisms: MRSA Date of last positivie culture/infection: 05/25/20 MDRO Source:: Abdomen Past Surgical History: Appendectomy, Hernia Repair, Joint Replacement Additional Past Surgical History / Comment(s): Right knee REPLACED, hernia x2, ABD AORTOGRAM 02/24/17, Hernia repair w/ mesh removal 04/10/20. Hernia mesh removed 10/01/20. 3/4 Parathyroid removal surgery 01/18/2020. Tumor removal small intestine 10/01/20. hernia mesh removel 2020. tumor removal small intestine 2020. Past Anesthesia/Blood Transfusion Reactions: No Reported Reaction Past Psychological History: Anxiety, Depression Smoking Status: Current every day smoker Past Alcohol Use History: None Reported Past Drug Use History: Marijuana - Past Family History Mother History Unknown: Yes Family Medical History: Dementia, Diabetes Mellitus, Hyperlipidemia, Renal Disease Additional Family Medical History / Comment(s): dialysis Father Family Medical History: Coronary Artery Disease (CAD), Diabetes Mellitus Medications and Allergies Home Medications Medication Instructions Recorded Confirmed Type DULoxetine HCL [Cymbalta] 60 mg PO HS 10/08/17 02/20/21 History metFORMIN HCL [Glucophage] 1,000 mg PO BID 10/08/17 02/20/21 History Glimepiride [Amaryl] 1 mg PO HS 11/20/18 02/20/21 History Omeprazole [PriLOSEC] 40 mg PO HS 11/20/18 02/20/21 History traZODone HCL 75 mg PO HS 11/20/18 02/20/21 History Atorvastatin [Lipitor] 80 mg PO HS 07/07/19 02/20/21 History Albuterol Sulfate [Proair Hfa] 2 puff INHALATION RT-Q6H PRN 04/30/20 02/20/21 H istory Benazepril HCl 20 mg PO HS 04/30/20 02/20/21 History Gabapentin [Neurontin] 300 mg PO TID 09/29/20 02/20/21 History Tiotropium [place] [Spiriva 2 puff INHALATION RT-DAILY 09/29/20 02/20/21 History Respimat] Triamterene-Hctz 37.5-25Mg 1 tab PO DAILY 09/29/20 02/20/21 History [Maxzide 37.5-25] Warfarin [Coumadin] 9 mg PO WE 09/29/20 02/20/21 History Warfarin [Coumadin] 12 mg PO SUMOTUTHFRSA 09/29/20 02/20/21 History Calcium Carbonate/Vitamin D3 2 tab PO DAILY 11/14/20 02/20/21 History [Calcium 600-Vit D3 10 mcg (400 Iu)] Ferrous Sulfate [Feosol] 325 mg PO BID 11/14/20 02/20/21 History Multivitamins, Thera [Multivitamin 1 tab PO HS 11/14/20 02/20/21 History (formulary)] Aspirin EC [Ecotrin Low Dose] 81 mg PO DAILY 02/20/21 02/20/21 History Allergies Allergy/AdvReac Type Severity Reaction Status Date / Time No Known Allergies Allergy Verified 02/20/21 14:21 Physical Exam Vitals: Vital Signs Temp Pulse Resp BP Pulse Ox 02/20/21 20:30 73 18 102/63 96 02/20/21 19:31 68 18 104/59 99 02/20/21 18:57 72 18 97/44 98 02/20/21 17:35 81 18 97/56 96 02/20/21 15:41 65 18 100/56 98 02/20/21 14:34 69 18 97/55 100 02/20/21 12:03 97.9 F 80 18 85/59 97 Intake and Output 02/20/21 02/20/21 02/20/21 06:59 14:59 22:59 Other: Weight 122.47 kg -GENERAL: The patient is alert and oriented x3, lethargic, generally weak not in any acute distress. Well developed, well nourished. HEENT: Pupils are round and equally reacting to light. EOMI. No scleral icterus. No conjunctival pallor. Normocephalic, atraumatic. No pharyngeal erythema. No thyromegaly. CARDIOVASCULAR: S1 and S2 present. No murmurs, rubs, or gallops. PULMONARY: Chest is clear to auscultation, no wheezing or crackles. -ABDOMEN: Soft, right-sided abdominal tenderness, no rebound tenderness or guard ing, nondistended, normoactive bowel sounds. No palpable organomegaly. MUSCULOSKELETAL: No joint swelling or deformity. EXTREMITIES: No cyanosis, clubbing, or pedal edema. NEUROLOGICAL: Gross neurological examination did not reveal any focal deficits. SKIN: No rashes. No petechiae Results CBC & Chem 7: 02/20/21 21:06 02/20/21 21:06 Labs: Abnormal Lab Results - Last 24 Hours (Table) 02/20/21 02/20/21 02/20/21 Range/Units 12:54 12:54 14:44 WBC 11.3 H (3.8-10.6) k/uL RDW 16.8 H (11.5-15.5) % Neutrophils # 9.5 H (1.3-7.7) k/uL Sodium 134 L (137-145) mmol/L Carbon Dioxide 20 L (22-30) mmol/L BUN 29 H (9-20) mg/dL Creatinine 1.51 H (0.66-1.25) mg/dL Glucose 136 H (74-99) mg/dL ALT 72 H (4-49) U/L Alkaline Phosphatase 131 H (38-126) U/L Urine Protein Trace H (Negative) Ur Leukocyte Esterase Trace H (Negative) Urine Bacteria Rare H (None) /hpf Hyaline Casts 37 H (0-2) /lpf Urine Mucus Few H (None) /hpf Assessment and Plan Assessment: right abdominal wall hematoma, 5 cm x 12 cm History of DVT on Coumadin 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 Lr History of kidney stone History of colon cancer diagnosed on 10/01/2020 Plan: This is a pleasant 60 years old male who presents with right-sided abdominal wall hematoma and abdominal pain and tenderness associated with hypertension Pulse coumadine Continue with but IV fluids and monitor blood pressure closely Hold Coumadin Labs and medication were reviewed.. Continue same treatment. Continue with symptomatic treatment. Resume home medication. Monitor lytes and vitals. DVT and GI prophylaxis. Further recommendations depends on the clinical course of the patient DVT prophylaxis: no Subcutaneous heparin due to abdominal wall hematoma and hypertension GI Prophylaxis: Pepcid PT/OT: Pending Prognosis is guarded
[2021-02-21 05:34] LABS: INR 2.2 (<1.2); Partial Thromboplastin Time 34.6 sec (22.0-30.0); Prothrombin Time 21.4 sec (9.0-12.0)
[2021-02-21] MEDS: SODIUM CHLORIDE 0.9% 1,000 ML IV SCH ×3 (07:22→21:35)
[2021-02-21] MEDS: GABAPENTIN 300 MG CAP PO SCH ×3 (08:35→21:28)
[2021-02-21] MEDS ORDERED: ASPIRIN 81 MG PO SCH (09:00)
[2021-02-21 10:15] LABS: Basophils # (A) 0.02 X 10*3/uL (0.00-0.10); Basophils % (A) 0.2 %; Eosinophils % (A) 2.1 %; HCT 36.7 % (39.6-50.0); Lymphocytes # (A) 1.37 X 10*3/uL (0.90-5.00); Lymphocytes % (A) 14.3 %; MCH 28.5 pg (27.0-32.0); MCHC 32.7 g/dL (32.0-37.0); MCV 87.2 fL (80.0-97.0); Mean Platelet Volume 9.3 fL (9.5-12.2); Monocytes # (A) 0.53 X 10*3/uL (0.20-1.00); Monocytes % (A) 5.5 %; Neutrophils # (A) 7.44 X 10*3/uL (1.80-7.70); Neutrophils % (A) 77.5 %; Platelet Count 343 X 10*3/uL (140-440); RBC 4.21 X 10*6/uL (4.40-5.60); RDW 17.3 % (11.5-14.5)
[2021-02-21 11:17] LABS: African American GFR (CKD) 93.7 (60.0-200.0); Anion Gap 9.7 mmol/L (4.00-12.00); Calcium 8.1 mg/dL (8.7-10.3); Carbon Dioxide 20.3 mmol/L (21.6-31.8); Non-African American GFR(CKD) 80.9 (60.0-200.0); Potassium 4.5 mmol/L (3.5-5.5)
--- NOTE | 2021-02-21 13:19 | P.GSCN ---
History of Present Illness Consult date: 02/21/21 History of present illness: CHIEF COMPLAINT: Dizziness, low BP Surgical consult: Abdominal wall hematoma HISTORY OF PRESENT ILLNESS: This is a 60-year-old male with a known history of DVT and anticoagulated with Coumadin, diabetes, hypertension and a chronic abdominal wound. He also has a history of colon cancer status post small bowel resection in September 2020. Also at that time he had an infected hernia mesh removed. Patient presents to the emergency room with complaints of dizziness and hypotension per the home care nurse. Patient is also been having abdominal pain mostly on the right side of the abdomen. Patient complains of having abdominal pain for about 3 weeks. He reports having had some issues with constipation. He denies any nausea or vomiting. Denies any fevers. Computed tomography scan head shows previous small bowel surgery. No evidence of bowel obstruction. Large mass measuring 5 cm in thickness by 12 cm in length affecting the anterior abdominal wall consistent with an acute muscular hematoma. PAST MEDICAL HISTORY: See list. PAST SURGICAL HISTORY: See list. MEDICATIONS: See list. ALLERGIES: See list. SOCIAL HISTORY: No illicit drug use. REVIEW OF SYSTEMS: CONSTITUTIONAL: Denies fever or chills. HEENT: Denies blurred vision, vision changes, or eye pain. Denies hemoptysis CARDIOVASCULAR: Denies chest pain or pressure. RESPIRATORY: No shortness of breath. GASTROINTESTINAL: See HPI for pertinent findings HEMATOLOGIC: Denies bleeding disorders. GENITOURINARY: Denies any blood in urine or increased urinary frequency. SKIN: Denies pruitis. Denies rash. PHYSICAL EXAM: VITAL SIGNS: Reviewed GENERAL: Well-developed in no acute distress. HEENT: No sclera icterus. Extraocular movements grossly intact. Moist buccal mucosa. Head is atraumatic, normocephalic. No nasal drainage. ABDOMEN: Soft. Obese. Distended. Tenderness to palpation of the right abdomen. No external bruising noted NEUROLOGIC: Alert and oriented. Cranial nerves II through XII grossly intact. LABORATORY DATA: WBC 11.3 down to 9.6 hemoglobin 13.5 down to 12.0 12 platelets 343 INR 2.2 Creatinine 1.51 down to 1.0 IMAGING: Computed tomography scan findings as stated above ASSESSMENT: 1. Large anterior abdominal wall hematoma PLAN: -No surgical intervention planned -Continue conservative management -Hold Coumadin -Continue regular diet Physician Cosmetic Maker note has been reviewed by physician. Signing provider agrees with the documented findings, assessment, and plan of care. Past Medical History Past Medical History: Asthma, Cancer, COPD, Diabetes Mellitus, Deep Vein Thromb osis (DVT), GERD/Reflux, Hyperlipidemia, Hypertension, Sleep Apnea/CPAP/BIPAP Additional Past Medical History / Comment(s): Open incisional area from umbilical hernia sx, hx infected mesh. AWAITING TWYLA HIP REPLACEMENT. Hx DVT LEFT LEG, HX OF KIDNEY STONES. Hx anemia w/ transfusions, found tumors in colon w/ blockage, Colon cancer diagnosed 10/01/20; has open wound w/ wound vac. Uses cpap. Edema BLE. History of Any Multi-Drug Resistant Organisms: MRSA Year Discovered:: 05/25/20 MDRO Source:: Abdomen Past Surgical History: Appendectomy, Hernia Repair, Joint Replacement Additional Past Surgical History / Comment(s): Right knee REPLACED, hernia x2, ABD AORTOGRAM 02/24/17, Hernia repair w/ mesh removal 04/10/20. Hernia mesh removed 10/01/20. 3/4 Parathyroid removal surgery 01/18/2020. Tumor removal small intestine 10/01/20. hernia mesh removel 2020. tumor removal small intestine 2020. Past Anesthesia/Blood Transfusion Reactions: No Reported Reaction Past Psychological History: Anxiety, Depression Smoking Status: Current every day smoker Past Alcohol Use History: None Reported Past Drug Use History: Marijuana - Past Family History Mother History Unknown: Yes Family Medical History: Dementia, Diabetes Mellitus, Hyperlipidemia, Renal Disease Additional Family Medical History / Comment(s): dialysis Father Family Medical History: Coronary Artery Disease (CAD), Diabetes Mellitus Medications and Allergies Home Medications Medication Instructions Recorded Confirmed Type DULoxetine HCL [Cymbalta] 60 mg PO HS 10/08/17 02/20/21 History metFORMIN HCL [Glucophage] 1,000 mg PO BID 10/08/17 02/20/21 History Glimepiride [Amaryl] 1 mg PO HS 11/20/18 02/20/21 History Omeprazole [PriLOSEC] 40 mg PO HS 11/20/18 02/20/21 History traZODone HCL 75 mg PO HS 11/20/18 02/20/21 History Atorvastatin [Lipitor] 80 mg PO HS 07/07/19 02/20/21 History Albuterol Sulfate [Proair Hfa] 2 puff INHALATION RT-Q6H PRN 04/30/20 02/20/21 Hi story Benazepril HCl 20 mg PO HS 04/30/20 02/20/21 History Gabapentin [Neurontin] 300 mg PO TID 09/29/20 02/20/21 History Tiotropium [place] [Spiriva 2 puff INHALATION RT-DAILY 09/29/20 02/20/21 History Respimat] Triamterene-Hctz 37.5-25Mg 1 tab PO DAILY 09/29/20 02/20/21 History [Maxzide 37.5-25] Warfarin [Coumadin] 9 mg PO WE 09/29/20 02/20/21 History Warfarin [Coumadin] 12 mg PO SUMOTUTHFRSA 09/29/20 02/20/21 History Calcium Carbonate/Vitamin D3 2 tab PO DAILY 11/14/20 02/20/21 History [Calcium 600-Vit D3 10 mcg (400 Iu)] Ferrous Sulfate [Feosol] 325 mg PO BID 11/14/20 02/20/21 History Multivitamins, Thera [Multivitamin 1 tab PO HS 11/14/20 02/20/21 History (formulary)] Aspirin EC [Ecotrin Low Dose] 81 mg PO DAILY 02/20/21 02/20/21 History Allergies Allergy/AdvReac Type Severity Reaction Status Date / Time No Known Allergies Allergy Verified 02/20/21 14:21 Surgical - Exam Vital Signs Temp Pulse Resp BP Pulse Ox 97.9 F 80 18 85/59 97 02/20/21 12:03 02/20/21 12:03 02/20/21 12:03 02/20/21 12:03 02/20/21 12:03 Results - Labs 02/21/21 04:39 02/21/21 04:39 Abnormal Lab Results - Last 24 Hours (Table) 02/20/21 02/20/21 02/20/21 Range/Units 12:54 14:44 21:06 RBC (4.40-5.60) X 10*6/uL Hgb (13.0-17.5) gm/dL Hct (39.6-50.0) % RDW (11.5-15.5) % MPV (9.5-12.2) fL PT 20.6 H (9.0-12.0) sec INR 2.1 H (<1.2) APTT (22.0-30.0) sec Sodium 134 L (137-145) mmol/L Potassium (3.5-5.1) mmol/L Carbon Dioxide 20 L (22-30) mmol/L BUN 29 H (9-20) mg/dL Creatinine 1.51 H (0.66-1.25) mg/dL BUN/Creatinine Ratio (12.00-20.00) Ratio Glucose 136 H (74-99) mg/dL Calcium (8.4-10.2) mg/dL ALT 72 H (4-49) U/L Alkaline Phosphatase 131 H (38-126) U/L Urine Protein Trace H (Negative) Ur Leukocyte Esterase Trace H (Negative) Urine Bacteria Rare H (None) /hpf Hyaline Casts 37 H (0-2) /lpf Urine Mucus Few H (None) /hpf 02/20/21 02/20/21 02/21/21 Range/Units 21:06 21:06 04:39 RBC 4.21 L (4.40-5.60) X 10*6/uL Hgb 12.9 L 12.0 L (13.0-17.5) gm/dL Hct 36.7 L (39.6-50.0) % RDW 16.9 H 17.3 H (11.5-15.5) % MPV 9.3 L (9.5-12.2) fL PT (9.0-12.0) sec INR (<1.2) APTT (22.0-30.0) sec Sodium 133 L (137-145) mmol/L Potassium 5.4 H (3.5-5.1) mmol/L Carbon Dioxide 19 L (22-30) mmol/L BUN 30 H (9-20) mg/dL Creatinine 1.31 H (0.66-1.25) mg/dL BUN/Creatinine Ratio (12.00-20.00) Ratio Glucose 124 H (74-99) mg/dL Calcium 8.3 L (8.4-10.2) mg/dL ALT (4-49) U/L Alkaline Phosphatase (38-126) U/L Urine Protein (Negative) Ur Leukocyte Esterase (Negative) Urine Bacteria (None) /hpf Hyaline Casts (0-2) /lpf Urine Mucus (None) /hpf 02/21/21 02/21/21 Range/Units 04:39 04:39 RBC (4.40-5.60) X 10*6/uL Hgb (13.0-17.5) gm/dL Hct (39.6-50.0) % RDW (11.5-15.5) % MPV (9.5-12.2) fL PT 21.4 H (9.0-12.0) sec INR 2.2 H (<1.2) APTT 34.6 H (22.0-30.0) sec Sodium 133 L (137-145) mmol/L Potassium (3.5-5.1) mmol/L Carbon Dioxide 20.3 L (22-30) mmol/L BUN (9-20) mg/dL Creatinine (0.66-1.25) mg/dL BUN/Creatinine Ratio 24.00 H (12.00-20.00) Ratio Glucose 115 H (74-99) mg/dL Calcium 8.1 L (8.4-10.2) mg/dL ALT (4-49) U/L Alkaline Phosphatase (38-126) U/L Urine Protein (Negative) Ur Leukocyte Esterase (Negative) Urine Bacteria (None) /hpf Hyaline Casts (0-2) /lpf Urine Mucus (None) /hpf Microbiology - Last 24 Hours (Table) 02/20/21 17:49 Gram Stain - Preliminary Abdomen Wound Culture - Preliminary 02/20/21 17:49 Anaerobic Culture - Preliminary Abdomen Diabetes panel 02/20/21 02/20/21 02/21/21 Range/Units 12:54 21:06 04:39 Sodium 134 L 133 L 133 L (137-145) mmol/L Potassium 4.8 5.4 H 4.5 (3.5-5.1) mmol/L Chloride 103 104 103 (98-107) mmol/L Carbon Dioxide 20 L 19 L 20.3 L (22-30) mmol/L BUN 29 H 30 H 24.0 (9-20) mg/dL Creatinine 1.51 H 1.31 H 1.0 (0.66-1.25) mg/dL Glucose 136 H 124 H 115 H (74-99) mg/dL Calcium 8.7 8.3 L 8.1 L (8.4-10.2) mg/dL AST 38 (17-59) U/L ALT 72 H (4-49) U/L Alkaline Phosphatase 131 H (38-126) U/L Total Protein 6.7 (6.3-8.2) g/dL Albumin 3.5 (3.5-5.0) g/dL Calcium panel 02/20/21 02/20/21 02/21/21 Range/Units 12:54 21:06 04:39 Calcium 8.7 8.3 L 8.1 L (8.4-10.2) mg/dL Albumin 3.5 (3.5-5.0) g/dL Pituitary panel 02/20/21 02/20/21 02/21/21 Range/Units 12:54 21:06 04:39 Sodium 134 L 133 L 133 L (137-145) mmol/L Potassium 4.8 5.4 H 4.5 (3.5-5.1) mmol/L Chloride 103 104 103 (98-107) mmol/L Carbon Dioxide 20 L 19 L 20.3 L (22-30) mmol/L BUN 29 H 30 H 24.0 (9-20) mg/dL Creatinine 1.51 H 1.31 H 1.0 (0.66-1.25) mg/dL Glucose 136 H 124 H 115 H (74-99) mg/dL Calcium 8.7 8.3 L 8.1 L (8.4-10.2) mg/dL Adrenal panel 02/20/21 02/20/21 02/21/21 Range/Units 12:54 21:06 04:39 Sodium 134 L 133 L 133 L (137-145) mmol/L Potassium 4.8 5.4 H 4.5 (3.5-5.1) mmol/L Chloride 103 104 103 (98-107) mmol/L Carbon Dioxide 20 L 19 L 20.3 L (22-30) mmol/L BUN 29 H 30 H 24.0 (9-20) mg/dL Creatinine 1.51 H 1.31 H 1.0 (0.66-1.25) mg/dL Glucose 136 H 124 H 115 H (74-99) mg/dL Calcium 8.7 8.3 L 8.1 L (8.4-10.2) mg/dL Total Bilirubin 0.5 (0.2-1.3) mg/dL AST 38 (17-59) U/L ALT 72 H (4-49) U/L Alkaline Phosphatase 131 H (38-126) U/L Total Protein 6.7 (6.3-8.2) g/dL Albumin 3.5 (3.5-5.0) g/dL
[2021-02-21] MEDS: NICOTINE 21MG/24HR PATCH TRANSDERM SCH (15:18)
--- NOTE | 2021-02-21 17:17 | P.CONS ---
History of Present Illness - Reason for Consult Consult date: 02/21/21 hematoma, on coumadin Requesting physician: Nehemiah E Sheet - Chief Complaint low BP - History of Present Illness Mister Diehl is a very pleasant male patient who presented to [facility] ER with anemia found on a routine blood draw at [facility]. Patient had been complaining of abdominal pain for the previous week. He had 2- 3 episodes of nausea with vomiting. CTAP 09/29/20 showed a fluid-filled prominence of the third and fourth portion of the duodenum extending to prominent and dilated additional loops in the left upper abdomen. Colon was nondistended. Chest x-ray did not show any lung pathology. Patient had surgery 09/29/20. He had a pocket of pus and an infected hernia repair and mesh in the anterior abdominal wall that was removed. Lysis of adhesions. Found to have a tumor in the proximal jejunum that was causing obstruction. He had a small bowel resection with a partial omentectomy, and 2 and anastomosis. Pathology revealed acute and chronic inflammation from abdominal wall, soft tissue. 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 All margins were negative. Depth of invasion was T3. No lymph nodes were sampled. Postsurgery patient had had a wound VAC, prolonged healing, in fact patient is still being seen at the wound clinic. The site though is not requiring any packing. Patient was going to follow-up with oncology once is wound was completely healed for consideration of adjuvant chemotherapy, curative intent. Patient came to the emergency department on the recommended duration of his [facility] nurse. She was checking his blood pressure and found it to be pretty low (60s/40s). Patient says he is been having some pain in the right lower quadrant, he has vomited 1. I'm coming to the ER the patient had CT of the abdomen and pelvis revealing a 5 x 12 cm intramuscular fluid collection most suspicious for a hematoma. Patient is on Coumadin, she does not know why he is on Coumadin. He does not recall any fall or injury. He does play with his grandchildren and isn't sure if maybe one of them jumping on him could've caused the problem. Currently he denies fevers, chills, current nausea, unusual cough, chest pain, No other bleeding to report. He has been having difficulties with constipation, denies hematochezia, melena, hemorrhoids, dysuria, hematuria, he has pain in the right toes which she says started after he had an arterial stent placed. Review of Systems 10 point ROS is neg except as stated in HPI Past Medical History Past Medical History: Asthma, Cancer, COPD, Diabetes Mellitus, Deep Vein Thrombosis (DVT), GERD/Reflux, Hyperlipidemia, Hypertension, Sleep Apnea/CPAP/BIPAP Additional Past Medical History / Comment(s): Open incisional area from umbilical hernia sx, hx infected mesh. AWAITING TWYLA HIP REPLACEMENT. Hx DVT LEFT LEG, HX OF KIDNEY STONES. Hx anemia w/ transfusions, found tumors in colon w/ blockage, Colon cancer diagnosed 10/01/20; has open wound w/ wound vac. Uses cpap. Edema BLE. History of Any Multi-Drug Resistant Organisms: MRSA Year Discovered:: 05/25/20 MDRO Source:: Abdomen Past Surgical History: Appendectomy, Hernia Repair, Joint Replacement Additional Past Surgical History / Comment(s): Right knee REPLACED, hernia x2, ABD AORTOGRAM 02/24/17, Hernia repair w/ mesh removal 04/10/20. Hernia mesh removed 10/01/20. 3/4 Parathyroid removal surgery 01/18/2020. Tumor removal small intestine 10/01/20. hernia mesh removel 2020. tumor removal small intestine 2020. Past Anesthesia/Blood Transfusion Reactions: No Reported Reaction Past Psychological History: Anxiety, Depression Smoking Status: Current every day smoker Past Alcohol Use History: None Reported Past Drug Use History: Marijuana - Past Family History Mother History Unknown: Yes Family Medical History: Dementia, Diabetes Mellitus, Hyperlipidemia, Renal Disease Additional Family Medical History / Comment(s): dialysis Father Family Medical History: Coronary Artery Disease (CAD), Diabetes Mellitus Medications and Allergies Home Medications Medication Instructions Recorded Confirmed Type DULoxetine HCL [Cymbalta] 60 mg PO HS 10/08/17 02/20/21 History metFORMIN HCL [Glucophage] 1,000 mg PO BID 10/08/17 02/20/21 History Glimepiride [Amaryl] 1 mg PO HS 11/20/18 02/20/21 History Omeprazole [PriLOSEC] 40 mg PO HS 11/20/18 02/20/21 History traZODone HCL 75 mg PO HS 11/20/18 02/20/21 History Atorvastatin [Lipitor] 80 mg PO HS 07/07/19 02/20/21 History Albuterol Sulfate [Proair Hfa] 2 puff INHALATION RT-Q6H PRN 04/30/20 02/20/21 History Benazepril HCl 20 mg PO HS 04/30/20 02/20/21 History Gabapentin [Neurontin] 300 mg PO TID 09/29/20 02/20/21 History Tiotropium [place] [Spiriva 2 puff INHALATION RT-DAILY 09/29/20 02/20/21 History Respimat] Triamterene-Hctz 37.5-25Mg 1 tab PO DAILY 09/29/20 02/20/21 History [Maxzide 37.5-25] Warfarin [Coumadin] 9 mg PO WE 09/29/20 02/20/21 History Warfarin [Coumadin] 12 mg PO SUMOTUTHFRSA 09/29/20 02/20/21 History Calcium Carbonate/Vitamin D3 2 tab PO DAILY 11/14/20 02/20/21 History [Calcium 600-Vit D3 10 mcg (400 Iu)] Ferrous Sulfate [Feosol] 325 mg PO BID 11/14/20 02/20/21 History Multivitamins, Thera [Multivitamin 1 tab PO HS 11/14/20 02/20/21 History (formulary)] Aspirin EC [Ecotrin Low Dose] 81 mg PO DAILY 02/20/21 02/20/21 History Allergies Allergy/AdvReac Type Severity Reaction Status Date / Time No Known Allergies Allergy Verified 02/20/21 14:21 Physical Exam Vitals: Vital Signs Temp Pulse Pulse Resp BP BP Pulse Ox 02/21/21 15:00 99.3 F 64 16 107/65 99 02/21/21 14:00 78 16 02/21/21 07:34 78 16 02/21/21 07:00 98.2 F 91 16 114/68 97 02/21/21 02:00 78 02/21/21 01:48 98.6 F 78 16 95/57 97 02/20/21 21:33 99.3 F 78 16 93/58 98 02/20/21 21:05 78 18 107/57 99 02/20/21 20:30 73 18 102/63 96 02/20/21 19:31 68 18 104/59 99 02/20/21 18:57 72 18 97/44 98 02/20/21 17:35 81 18 97/56 96 Intake and Output 02/21/21 02/21/21 02/21/21 06:59 14:59 22:59 Output Total 680 Balance -680 Output: Urine 680 Other: Voiding Method Toilet Toilet Urinal Urinal # Voids 3 1 - Constitutional General appearance: cooperative, morbidly obese, no acute distress - EENT Eyes: anicteric sclerae, EOMI, normal appearance ENT: hearing grossly normal, normal oropharynx - Neck Neck: no lymphadenopathy - Respiratory Respiratory: bilateral: CTA - Cardiovascular Rhythm: regular Heart sounds: normal: S1, S2 Abnormal Heart Sounds: no systolic murmur, no diastolic murmur, no rub, no S3 Gallop, no S4 Gallop, no click, no other leg Peripheral Edema: bilateral: None - Gastrointestinal right side of abd is warm to touch General gastrointestinal: normal bowel sounds, soft, tenderness - Neurologic Neurologic: CNII-XII intact - Musculoskeletal Musculoskeletal: strength equal bilaterally - Psychiatric Psychiatric: A&O x's 3, appropriate affect, intact judgment & insight Results CBC & Chem 7: 02/21/21 04:39 02/21/21 04:39 Labs: Abnormal Lab Results - Last 24 Hours (Table) 02/20/21 02/20/21 02/20/21 Range/Units 21:06 21:06 21:06 RBC (4.40-5.60) X 10*6/uL Hgb 12.9 L (13.0-17.5) gm/dL Hct (39.6-50.0) % RDW 16.9 H (11.5-15.5) % MPV (9.5-12.2) fL PT 20.6 H (9.0-12.0) sec INR 2.1 H (<1.2) APTT (22.0-30.0) sec Sodium 133 L (137-145) mmol/L Potassium 5.4 H (3.5-5.1) mmol/L Carbon Dioxide 19 L (22-30) mmol/L BUN 30 H (9-20) mg/dL Creatinine 1.31 H (0.66-1.25) mg/dL BUN/Creatinine Ratio (12.00-20.00) Ratio Glucose 124 H (74-99) mg/dL Calcium 8.3 L (8.4-10.2) mg/dL 02/21/21 02/21/21 02/21/21 Range/Units 04:39 04:39 04:39 RBC 4.21 L (4.40-5.60) X 10*6/uL Hgb 12.0 L (13.0-17.5) gm/dL Hct 36.7 L (39.6-50.0) % RDW 17.3 H (11.5-15.5) % MPV 9.3 L (9.5-12.2) fL PT 21.4 H (9.0-12.0) sec INR 2.2 H (<1.2) APTT 34.6 H (22.0-30.0) sec Sodium 133 L (137-145) mmol/L Potassium (3.5-5.1) mmol/L Carbon Dioxide 20.3 L (22-30) mmol/L BUN (9-20) mg/dL Creatinine (0.66-1.25) mg/dL BUN/Creatinine Ratio 24.00 H (12.00-20.00) Ratio Glucose 115 H (74-99) mg/dL Calcium 8.1 L (8.4-10.2) mg/dL Microbiology - Last 24 Hours (Table) 02/20/21 17:49 Gram Stain - Preliminary Abdomen Wound Culture - Preliminary 02/20/21 17:49 Anaerobic Culture - Preliminary Abdomen Chest x-ray: report reviewed Abdominal x-ray: report reviewed CT scan - abdomen: report reviewed CT scan - pelvis: report reviewed Assessment and Plan (1) Hematoma Narrative/Plan: Surgery as consult for the same. Hold Coumadin for now. 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 Plans were for adjuvant therapy to reduce the risk of recurrence once patient was completely healed from surgery. He continues under bone care for right now so, we'll plan for a follow-up in 4-6 weeks. Current Visit: Yes Status: Acute Priority: High Code(s): C80.1 - MALIGNANT (PRIMARY) NEOPLASM, UNSPECIFIED SNOMED Code(s): 885863133 (3) Left leg DVT Narrative/Plan: Remote history of DVT 11/2016. We'll request a Doppler of the left lower extremity as patient is experiencing pain. For now, hold coumadin because of abd hematoma. Noted that Hgb is currently stable After chart review, DVT in 2017 seems to be unprovoked. Will review the case with Bag Patcher with final recommendations to follow. Current Visit: No Status: Chronic Priority: Low Code(s): I82.402 - ACUTE EMBOLISM AND THOMBOS UNSP DEEP VEINS OF L LOW EXTREM SNOMED Code(s): 832363331
--- NOTE | 2021-02-21 19:09 | US ---
EXAMINATION TYPE: US venous doppler duplex LE LT DATE OF EXAM: 02/21/2021 6:43 PM COMPARISON: US CLINICAL HISTORY: pain, Hx DVT in 2017. Pain. Hx DVT. SIDE PERFORMED: Left TECHNIQUE: The lower extremity deep venous system is examined utilizing real time linear array sonog maco with graded compression, doppler sonography and color-flow sonography. VESSELS IMAGED: Common Femoral Vein Deep Femoral Vein Greater Saphenous Vein * Femoral Vein Popliteal Vein Small Saphenous Vein * Proximal Calf Veins (* superficial vessels) Left Leg: Exam is limited due to patient body habitus and edema. Rouleaux flow is seen within veins imaged. No evidence of DVT at this time. Limited visibility of prox calf veins. IMPRESSION: No sign of deep vein thrombosis in the left leg.
[2021-02-21] MEDS ORDERED: FUROSEMIDE 10 MG/ML 4 ML VIAL IV STA (21:05)
--- NOTE | 2021-02-21 21:09 | P.PN ---
Subjective This is a pleasant 60 years old male with past medical history of asthma/COPD, diabetes mellitus, hypertension, hyperlipidemia, sleep apnea, history of the venous thrombosis on Coumadine He was sent to the hospital by his wound care nurse when noticed his blood pressure was on the low side to 76/40 and he was a bit lethargic and sleepy more than usual. Patient is on blood pressure medication and last time was last night. Also patient feels dizzy as well but denies chest pain. He has some exertional dyspnea. Also patient has been complaining from right-sided abdominal pain for the last 3 weeks, and vomited twice during these 3 weeks.. Is eating well but his belly is constipated for the last 4-5 days. He is a smoker smokes about 1 pack per day and he wants to quit after counseling and he likes to take nicotine patch. No alcohol or illicit tracts. He is also complaining of from bilateral leg pain he has history of 2 stents in his left leg Patient was hypotensive on admission at 85/59 and his blood pressure improved currently 207/57 Repeat labs showing WBC normal at 8.9, mild anemia 12.9, platelet level was normal. INR is 2.1 which is therapeutic range. Sodium is 133, potassium slightly elevated at 5.4. Acute kidney injury with improving creatinine 1.5 down to 1.3. Liver enzymes with no significant elevation. Troponin is negative less than 0.012. Urinalysis is still suspicious of infection. EKG showing normal sinus rhythm at [address]-T changes Chest x-ray: No acute process. KUB showing overall nonspecific but favor nonobstructive bowel gas pattern. CT of the abdomen and pelvis: No contrast: 2 cm low-density left adrenal mass, 3 mm lower right kidney calculus. Right anterior abdominal wall oval-shaped density and mass 02/21/2021 Patient abdominal pain and tenderness is improving down to /10 compared to 04/29 upon admission No other complaint. He has mild wound of about 1 inch in the middle of his midline scar, the wound looks pale and with no surrounding cellulitis, culture is requesting but felt there is no need for antibiotics as patients with no fever or leukocytosis or evidence of cellulitis. Hemodynamically stable. Hemoglobin stable at 12. INR is 2.2 despite Coumadin is held due to the hematoma Discussed the case with hematology team to assess need for anticoagulation given his remote history of DVT. They check Doppler of the lower extremity because of leg pain and it was negative. Keep holding Coumadin, and lowered the rate of normal saline with 50 down to 75 mL/h. Give 1 dose of Lasix Objective - Vital Signs Vital signs: Vital Signs Temp 99.3 F 02/21/21 15:00 Pulse 64 02/21/21 15:00 Resp 16 02/21/21 15:00 BP 107/65 02/21/21 15:00 Pulse Ox 99 02/21/21 15:00 Intake & Output 02/20/21 02/21/21 02/21/21 18:59 06:59 18:59 Intake Total 560 Output Total 680 Balance 560 -680 Weight 123 kg Intake: IV 360 Piperacillin-Tazobactam 3 100 .375 gm In Sodium Chloride 0.9% 100 ml @ 25 mls/hr IVPB Q8H [facility]IA Rx#: [id number] Sodium Chloride 0.9% 1, 260 000 ml @ 130 mls/hr IV . Q7H42M [facility] Rx#:[id number] Oral 200 Output: Urine 680 Other: Voiding Method Toilet Toilet Urinal Urinal # Voids 3 1 - Exam -GENERAL: The patient is alert and oriented x3, lethargic, generally weak not in any acute distress. Obese HEENT: Pupils are round and equally reacting to light. EOMI. No scleral icterus. No conjunctival pallor. Normocephalic, atraumatic. No pharyngeal erythema. No thyromegaly. CARDIOVASCULAR: S1 and S2 present. No murmurs, rubs, or gallops. PULMONARY: Chest is clear to auscultation, no wheezing or crackles. -ABDOMEN: Soft, right-sided abdominal tenderness, no rebound tenderness or guarding, nondistended, normoactive bowel sounds. No palpable organomegaly. 1 inch wound in the middle of vertical midline scar, healing with no cellulitis MUSCULOSKELETAL: No joint swelling or deformity. EXTREMITIES: No cyanosis, clubbing, or pedal edema. NEUROLOGICAL: Gross neurological examination did not reveal any focal deficits. SKIN: No rashes. No petechiae - Labs CBC & Chem 7: 02/21/21 04:39 02/21/21 04:39 Labs: Abnormal Lab Results - Last 24 Hours (Table) 02/20/21 02/20/2102/20/21 Range/Units 21:06 21:06 21:06 RBC (4.40-5.60) X 10*6/uL Hgb 12.9 L (13.0-17.5) gm/dL Hct (39.6-50.0) % RDW 16.9 H (11.5-15.5) % MPV (9.5-12.2) fL PT 20.6 H (9.0-12.0) sec INR 2.1 H (<1.2) APTT (22.0-30.0) sec Sodium 133 L (137-145) mmol/L Potassium 5.4 H (3.5-5.1) mmol/L Carbon Dioxide 19 L (22-30) mmol/L BUN 30 H (9-20) mg/dL Creatinine 1.31 H (0.66-1.25) mg/dL BUN/Creatinine Ratio (12.00-20.00) Ratio Glucose 124 H (74-99) mg/dL Calcium 8.3 L (8.4-10.2) mg/dL 02/21/21 02/21/21 02/21/21 Range/Units 04:39 04:39 04:39 RBC 4.21 L (4.40-5.60) X 10*6/uL Hgb 12.0 L (13.0-17.5) gm/dL Hct 36.7 L (39.6-50.0) % RDW 17.3 H (11.5-15.5) % MPV 9.3 L (9.5-12.2) fL PT 21.4 H (9.0-12.0) sec INR 2.2 H (<1.2) APTT 34.6 H (22.0-30.0) sec Sodium 133 L (137-145) mmol/L Potassium (3.5-5.1) mmol/L Carbon Dioxide 20.3 L (22-30) mmol/L BUN (9-20) mg/dL Creatinine (0.66-1.25) mg/dL BUN/Creatinine Ratio 24.00 H (12.00-20.00) Ratio Glucose 115 H (74-99) mg/dL Calcium 8.1 L (8.4-10.2) mg/dL Microbiology - Last 24 Hours (Table) 02/20/21 17:49 Gram Stain - Preliminary Abdomen Wound Culture - Preliminary 02/20/21 17:49 Anaerobic Culture - Preliminary Abdomen Assessment and Plan Assessment: right abdominal wall hematoma, 5 cm x 12 cm History of DVT on Coumadin. Doppler of the lower extremity is negative for DVT Chronic residual mid abdominal wound of 1 inch diameter healing. No evidence of cellulitis Hypertension Diabetes mellitus Hyperlipidemia History of sleep apnea History of infected mesh and umbilical hernia status post surgical repair and removal of the mesh by Dr. Lr History of kidney stone History of colon cancer diagnosed on 10/01/2020 Plan: This is a pleasant 60 years old male who presents with right-sided abdominal wall hematoma and abdominal pain and tenderness associated with hypertension Follow-up INR Decreased almost Lantus 75 mL/h. One time dose of IV Lasix 40 mg Hold Coumadin hematology/oncology team consult Labs and medication were reviewed.. Continue same treatment. Continue with symptomatic treatment. Resume home medication. Monitor lytes and vitals. DVT and GI prophylaxis. Further recommendations depends on the clinical course of the patient DVT prophylaxis: no Subcutaneous heparin due to abdominal wall hematoma and hypertension GI Prophylaxis: Pepcid PT/OT: Pending Possible discharge in 24-48 hours if he keeps improvement
[2021-02-21] MEDS: DULoxetine HCL 60 MG CAPSULE.DR PO SCH (21:27)
[2021-02-21] MEDS: ATORVASTATIN 80 MG TAB PO SCH (21:27)
[2021-02-21] MEDS: traZODone HCL 50 MG TAB PO SCH (21:29)
[2021-02-22] MEDS: MORPHINE SULFATE 4 MG/ML SYRINGE IV PRN ×3 (02:12→20:38)
[2021-02-22 05:28] LABS: Anisocytosis Slight; HCT 35.8 % (39.0-53.0); HGB 11.8 gm/dL (13.0-17.5); MCH 29.1 pg (25.0-35.0); MCV 88.2 fL (80.0-100.0); Mean Platelet Volume 6.7; Platelet Count 389 k/uL (150-450); RBC 4.06 m/uL (4.30-5.90); RDW 17.3 % (11.5-15.5); WBC 9.4 k/uL (3.8-10.6)
[2021-02-22 07:54] LABS: Glucose,Whole Blood 166 mg/dL (75-99)
[2021-02-22] MEDS: GABAPENTIN 300 MG CAP PO SCH ×3 (08:45→20:37)
[2021-02-22] MEDS: NICOTINE 21MG/24HR PATCH TRANSDERM SCH (08:45)
[2021-02-22 11:26] LABS: INR 1.3 (<1.2); Prothrombin Time 13.1 sec (9.0-12.0)
--- NOTE | 2021-02-22 14:34 | P.PN ---
Subjective Progress Note Date: 02/22/21 CHIEF COMPLAINT: Abdominal wall hematoma HISTORY OF PRESENT ILLNESS: Patient sitting up in bedside chair . He reports his pain is controlled. He is tolerating diet. Denies any nausea or vomiting. Afebrile. WBC 9.4 hemoglobin 11.8 INR 1.3 venous Doppler negative for DVT of left leg Patient seen and examined with Dr. chang PHYSICAL EXAM: VITAL SIGNS: Reviewed. GENERAL: Well-developed in no acute distress. HEENT: No sclera icterus. Extraocular movements grossly intact. Moist buccal mucosa. Head is atraumatic, normocephalic. ABDOMEN: Soft. Nondistended. NEUROLOGIC: Alert and oriented. Cranial nerves II through XII grossly intact. ASSESSMENT: 1. Large anterior abdominal wall hematoma PLAN: -Patient can be discharged from surgical standpoint -No surgical intervention planned -Continue conservative management -Hold Coumadin -Continue regular diet Physician Floor Representative note has been reviewed by physician. Signing provider agrees with the documented findings, assessment, and plan of care. Objective - Vital Signs Vital signs: Vital Signs Temp 98.9 F 02/22/21 07:00 Pulse 94 02/22/21 12:58 Resp 18 02/22/21 12:58 BP 122/73 02/22/21 07:00 Pulse Ox 95 02/22/21 07:00 Intake & Output 02/21/21 02/22/21 02/22/21 18:59 06:59 18:59 Intake Total 400 Output Total 680 Balance -680 400 Intake: Oral 400 Output: Urine 680 Other: Voiding Method Toilet Toilet Urinal Urinal # Voids 1 6 2 - Labs CBC & Chem 7: 02/22/21 04:58 02/21/21 04:39 Labs: Abnormal Lab Results - Last 24 Hours (Table) 02/22/21 02/22/21 02/22/21 Range/Units 04:58 07:28 11:02 RBC 4.06 L (4.30-5.90) m/uL Hgb 11.8 L (13.0-17.5) gm/dL Hct 35.8 L (39.0-53.0) % RDW 17.3 H (11.5-15.5) % PT 13.1 H (9.0-12.0) sec INR 1.3 H (<1.2) POC Glucose (mg/dL) 166 H (75-99) mg/dL Microbiology - Last 24 Hours (Table) 02/20/21 17:49 Gram Stain - Preliminary Abdomen Wound Culture - Preliminary Presumptive MRSA 02/20/21 16:50 Blood Culture - Preliminary Blood No Growth after 24 hours
[2021-02-22] MEDS: SODIUM CHLORIDE 0.9% 1,000 ML IV SCH ×2 (15:30→20:53)
--- NOTE | 2021-02-22 16:12 | P.PN ---
Subjective Progress Note Date: 02/22/21 Principal diagnosis: Abd hematoma, on coumadin. Colon adenocarcinoma In f/u today pt cont to have abd pain on the right, not progressive, denies any bleeding, appetite is ok, no fever, nausea. Objective - Vital Signs Vital signs: Vital Signs Temp 98.6 F 02/22/21 15:00 Pulse 79 02/22/21 15:00 Resp 18 02/22/21 15:00 BP 123/77 02/22/21 15:00 Pulse Ox 96 02/22/21 15:00 Intake & Output 02/21/21 02/22/21 02/22/21 18:59 06:59 18:59 Intake Total 400 Output Total 680 Balance -680 400 Intake: Oral 400 Output: Urine 680 Other: Voiding Method Toilet Toilet Urinal Urinal # Voids 1 6 2 - Constitutional General appearance: Present: cooperative, no acute distress, obese - EENT Eyes: Present: anicteric sclerae, EOMI ENT: Present: hearing grossly normal - Respiratory Respiratory: bilateral: CTA - Cardiovascular Rhythm: regular Heart sounds: normal: S1, S2 Abnormal Heart Sounds: Absent: systolic murmur, diastolic murmur, rub, S3 Gallop, S4 Gallop, click, other - Peripheral edema leg Peripheral Edema: bilateral: Trace - Gastrointestinal General gastrointestinal: Present: normal bowel sounds, tenderness - Neurologic Neurologic: Present: CNII-XII intact - Musculoskeletal Musculoskeletal: Present: strength equal bilaterally - Psychiatric Psychiatric: Present: A&O x's 3, appropriate affect, intact judgment & insight - Labs CBC & Chem 7: 02/22/21 04:58 02/21/21 04:39 Labs: Abnormal Lab Results - Last 24 Hours (Table) 02/22/21 02/22/21 02/22/21 Range/Units 04:58 07:28 11:02 RBC 4.06 L (4.30-5.90) m/uL Hgb 11.8 L (13.0-17.5) gm/dL Hct 35.8 L (39.0-53.0) % RDW 17.3 H (11.5-15.5) % PT 13.1 H (9.0-12.0) sec INR 1.3 H (<1.2) POC Glucose (mg/dL) 166 H (75-99) mg/dL Microbiology - Last 24 Hours (Table) 02/20/21 17:49 Gram Stain - Preliminary Abdomen Wound Culture - Preliminary Presumptive MRSA 02/20/21 16:50 Blood Culture - Preliminary Blood No Growth after 24 hours - Imaging and Cardiology Venous US: report reviewed (reviewed doppler reports back to 2016) Assessment and Plan (1) Hematoma Narrative/Plan: Surgery seen pt, no intervention planned Coumadin cont to be held. 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 Plans were for adjuvant therapy to reduce the risk of recurrence once patient was completely healed from surgery. He continues under wound care still. Consult to wound care while inpt ordered Current Visit: Yes Status: Acute Priority: High Code(s): C80.1 - MALIGNANT (PRIMARY) NEOPLASM, UNSPECIFIED SNOMED Code(s): 259797320 (3) Left leg DVT Narrative/Plan: Remote history of DVT 11/2016. Repeat doppler is neg for DVT in the LLE. Noted that Hgb is currently stable Current Visit: No Status: Chronic Priority: Low Code(s): I82.402 - ACUTE EMBOLISM AND THOMBOS UNSP DEEP VEINS OF L LOW EXTREM SNOMED Code(s): 183509090 Plan: Reviewed hospital course with pt daughter. She is not sure why pt is on coumadin but she thinks Dr. Pandey manages. The LLE doppler was neg for chronic DVT. Pt could be discontinued off of coumadin based on the Hx of DVT 4 years ago and being on coumadin the entire time (standard of care is 3-6 mo anticoagulation). But not certain is there is a cardiac reason to continue so, pending Cardiology recommendations. Time with Patient: Greater than 30
--- NOTE | 2021-02-22 18:35 | CONS ---
CONSULTATION DATE OF SERVICE: 02/22/2021. REASON FOR CONSULTATION: Positive abdominal wound culture. HISTORY OF PRESENT ILLNESS: The patient is a 60-year-old male with a past medical history significant for DVT on anticoagulation. The patient did have a history of colon resection status post small bowel resection in September of 2020, the patient did have hernia repair with infected mesh status post removal of the mesh. The patient seemed to have a chronic abdominal pain since his surgery, mostly right sided abdominal area. The patient was noticed to be hypertensive and did have some dizziness as per the home care nurse for which the patient was advised to go to the hospital. The patient presented to the hospital on February 20, 2021 with these symptoms. On arrival to the ER, the patient was afebrile and no fever has been recorded. Subsequently the patient did have a normal white count. Hemoglobin is stable 12.9-11.8. BUN and creatinine were slightly elevated. Subsequent normalized. Procalcitonin normal. Patient did have blood cultures that have been negative so far. The patient did have a CT of abdomen and pelvis completed on February 20, which did show no evidence of bowel obstruction, large mass involving the right side of the anterior abdominal wall consistent with acute muscular hematoma that is unchanged from exam. The patient has been evaluated by General surgery, recommend holding his Coumadin and no surgical intervention. The patient apparently does not have any wounds on the abdominal wall though. Culture has been obtained from it and is now showing presumptive MRSA which has prompted this Infectious Disease consultation. REVIEW OF SYSTEMS: Positive points have been mentioned in HPI. Rest of systems are negative. PAST MEDICAL HISTORY: Asthma, COPD, diabetes mellitus, DVT, gastroesophageal reflux disease, hyperlipidemia, hypertension, hernia, infection with . PAST SURGICAL HISTORY: Appendectomy, hernia repair, right knee replacement, tumor removed from the small intestine. SOCIAL HISTORY: Patient current everyday smoker. No drinking. Did admit to marijuana use. FAMILY HISTORY: Mother with history of diabetes, dementia, . Father history of coronary artery disease and diabetes. MEDICATIONS: The patient is currently on Tylenol, Ventolin, Lipitor, Cymbalta, Neurontin, morphine sulfate, Narcan, nicotine patch, saline and Desyrel. ALLERGIES: No known drug allergies. PHYSICAL EXAMINATION: Blood pressure 123/77, pulse of 79, temperature 98.6. He is 96% on 2 L nasal cannula. General description is a middle-aged male up in the chair in no distress. No tachypnea or accessory muscles of respiration use. HEENT: Examination shows slight pallor. No scleral icterus. Oral mucosal membranes dry. NECK: Trachea central. No thyromegaly. LUNGS unlabored breathing, clear to auscultation anteriorly with crackles. HEART S1, S2. Regular rate and rhythm. ABDOMEN: Soft, midline incision is currently healed and there was no open wound. No swelling. No redness or any drainage. EXTREMITIES: Minimal swelling and no redness. NEUROLOGIC: The patient is awake, alert, oriented times three. Mood and affect normal. LABS: Hemoglobin 11.1, white count 9.4, BUN of 24, creatinine 0.01, procalcitonin 0.09. Blood culture negative. Abdominal culture with presumptive MRSA. DIAGNOSTIC IMPRESSION AND PLAN: Patient with positive abdominal wall cultures with presumptive MRSA in this patient with no fever or elevated white count. A CT of abdomen and pelvis has been suggestive of possible hematoma. Clinically not behaving as an abscess in this patient with no evidence of any fever or elevated white count. No redness on the abdominal wall was noticed. PLAN: 1. We will watch the patient closely off antibiotic therapy. 2. If develops any fever, worsening white count or any purulent drainage, may need a drain and systemic antibiotics. Thank you for this consultation. We will follow this patient along with you. MMODL / IJN: [id number] /
[2021-02-22] MEDS: DULoxetine HCL 60 MG CAPSULE.DR PO SCH (20:36)
[2021-02-22] MEDS: traZODone HCL 50 MG TAB PO SCH (20:36)
[2021-02-22] MEDS: ATORVASTATIN 80 MG TAB PO SCH (20:37)
[2021-02-23] MEDS: NICOTINE 21MG/24HR PATCH TRANSDERM SCH (08:38)
[2021-02-23] MEDS: GABAPENTIN 300 MG CAP PO SCH (08:38)
--- NOTE | 2021-02-23 09:52 | P.CRDCN ---
History of Present Illness Consult date: 02/23/21 History of present illness: HISTORY OF PRESENT ILLNESS: This is a 60-year-old male with a past medical history significant for peripheral vascular disease, hypertension, hyperlipidemia, DVT, obstructive sleep apnea, and nicotine dependence. Patient follows in the office with Dr. Pandey. We have been asked to see the patient in consultation for Coumadin management. Patient examined at the bedside. 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 Patient underwent small bowel resection, repair of incisional hernia, lysis of adhesions, and removal of infected mesh with Dr. Jacobson in September 2020. Patient states over the past week he began having increased right lower quadrant abdominal pain. Patient presented to the hospital for further evaluation. Patient underwent CT abdomen and pelvis revealing large mass involving the right side anterior abdominal wall consistent with acute muscular hematoma. Patient is on Coumadin on an outpatient basis for history of DVT which he states was approximately 3 years ago. Patient denies any known previous history of atrial fibrillation/flutter. He currently denies chest pain or pressure. He denies shortness of breath. He denies a previous history of coronary artery disease. Patient denies alcohol use. He is a current smoker and smokes approximately one pack per day. EKG reveals sinus mechanism Chest xray negative for acute process Laboratory data: WBC 9.4. Hemoglobin 11.8. Platelet count 389. INR 1.3. Sodium 133. Potassium 4.5. BUN 24. Creatinine 1.0. Current home cardiac medications include aspirin 81 mg daily, triamterene-hctz 37.5-25mg daily, Coumadin 9 mg on Friday and 12 mg Friday, Benzapril 20 mg daily, and Lipitor 80 mg daily Most recent echocardiogram obtained in December 2017 reveal ejection fraction 55%. Mild mitral regurgitation. Mild tricuspid regurgitation. Patient underwent Lexiscan stress test in November 2018 which was negative for any stress-induced ischemia. REVIEW OF SYSTEMS: At the time of my exam: CONSTITUTIONAL: Denies fever or chills. HEENT: Denies blurred vision, vision changes, or eye pain. Denies hemoptysis CARDIOVASCULAR: Denies chest pain. Denies orthopnea. Denies PND. Denies palpitations RESPIRATORY: Denies shortness of breath. GASTROINTESTINAL: Denies abdominal pain. Denies nausea or vomiting. HEMATOLOGIC: Denies bleeding disorders. GENITOURINARY: Denies any blood in urine. SKIN: Denies pruitis. Denies rash. PHYSICAL EXAM: VITAL SIGNS: Reviewed. GENERAL: Well-developed in no acute distress. HEENT: Head is normocephalic. Pupils are equal, round. Sclerae anicteric. Mucous membranes of the mouth are moist. Neck supple. No JVD or thyromegaly LUNGS: Respirations even and unlabored. Lungs essentially clear to auscultation bilaterally. HEART: Regular rate and rhythm. S1 and S2 heard. ABDOMEN: Soft. Nondistended. Nontender. EXTREMITIES: Normal range of motion. No clubbing or cyanosis. Peripheral pulses intact. No lower extremity edema NEUROLOGIC: Awake and alert. Oriented x 3. 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 Pandey on an outpatient basis Nurse practitioner note has been reviewed by physician. Signing provider agrees with the documented findings, assessment, and plan of care. Past Medical History Past Medical History: Asthma, Cancer, COPD, Diabetes Mellitus, Deep Vein Thrombosis (DVT), GERD/Reflux, Hyperlipidemia, Hypertension, Sleep Apnea/CPAP/BIPAP Additional Past Medical History / Comment(s): Open incisional area from umbilical hernia sx, hx infected mesh. AWAITING TWYLA HIP REPLACEMENT. Hx DVT LE FT LEG, HX OF KIDNEY STONES. Hx anemia w/ transfusions, found tumors in colon w/ blockage, Colon cancer diagnosed 10/01/20; has open wound w/ wound vac. Uses cpap. Edema BLE. History of Any Multi-Drug Resistant Organisms: MRSA Date of last positivie culture/infection: 05/25/20 MDRO Source:: Abdomen Past Surgical History: Appendectomy, Hernia Repair, Joint Replacement Additional Past Surgical History / Comment(s): Right knee REPLACED, hernia x2, ABD AORTOGRAM 02/24/17, Hernia repair w/ mesh removal 04/10/20. Hernia mesh removed 10/01/20. 3/4 Parathyroid removal surgery 01/18/2020. Tumor removal small intestine 10/01/20. hernia mesh removel 2020. tumor removal small intestine 2020. Past Anesthesia/Blood Transfusion Reactions: No Reported Reaction Past Psychological History: Anxiety, Depression Smoking Status: Current every day smoker Past Alcohol Use History: None Reported Past Drug Use History: Marijuana - Past Family History Mother History Unknown: Yes Family Medical History: Dementia, Diabetes Mellitus, Hyperlipidemia, Renal Disease Additional Family Medical History / Comment(s): dialysis Father Family Medical History: Coronary Artery Disease (CAD), Diabetes Mellitus Medications and Allergies Home Medications Medication Instructions Recorded Confirmed Type DULoxetine HCL [Cymbalta] 60 mg PO HS 10/08/17 02/20/21 History metFORMIN HCL [Glucophage] 1,000 mg PO BID 10/08/17 02/20/21 History Glimepiride [Amaryl] 1 mg PO HS 11/20/18 02/20/21 History Omeprazole [PriLOSEC] 40 mg PO HS 11/20/18 02/20/21 History traZODone HCL 75 mg PO HS 11/20/18 02/20/21 History Atorvastatin [Lipitor] 80 mg PO HS 07/07/19 02/20/21 History Albuterol Sulfate [Proair Hfa] 2 puff INHALATION RT-Q6H PRN 04/30/20 02/20/21 History Benazepril HCl 20 mg PO HS 04/30/20 02/20/21 History Gabapentin [Neurontin] 300 mg PO TID 09/29/20 02/20/21 History Tiotropium [place] [Spiriva 2 puff INHALATION RT-DAILY 09/29/20 02/20/21 History Respimat] Triamterene-Hctz 37.5-25Mg 1 tab PO DAILY 09/29/20 02/20/21 History [Maxzide 37.5-25] Warfarin [Coumadin] 9 mg PO WE 09/29/20 02/20/21 History Warfarin [Coumadin] 12 mg PO SUMOTUTHFRSA 09/29/20 02/20/21 History Calcium Carbonate/Vitamin D3 2 tab PO DAILY 11/14/20 02/20/21 History [Calcium 600-Vit D3 10 mcg (400 Iu)] Ferrous Sulfate [Feosol] 325 mg PO BID 11/14/20 02/20/21 History Multivitamins, Thera [Multivitamin 1 tab PO HS 11/14/20 02/20/21 History (formulary)] Aspirin EC [Ecotrin Low Dose] 81 mg PO DAILY 02/20/21 02/20/21 History Allergies Allergy/AdvReac Type Severity Reaction Status Date / Time No Known Allergies Allergy Verified 02/20/21 14:21 Physical Exam Vitals: Vital Signs Temp Pulse Resp BP Pulse Ox 02/23/21 07:00 100.0 F H 88 18 113/61 94 L 02/23/21 01:43 97.5 F L 97 22 117/67 92 L 02/22/21 20:00 97.7 F 85 18 129/69 96 02/22/21 15:00 98.6 F 79 18 123/77 96 02/22/21 12:58 94 18 Intake and Output 02/22/21 02/23/21 02/23/21 22:59 06:59 14:59 Intake Total 300 Output Total 400 Balance 300 -400 Intake: Oral 300 Output: Urine 400 Other: Voiding Method Toilet Urinal # Voids 2 Results 02/22/21 04:58 02/21/21 04:39 Coagulation 02/22/21 Range/Units 11:02 PT 13.1 H (9.0-12.0) sec Current Medications Generic Name Dose Route Start Last Admin Trade Name Freq PRN Reason Stop Dose Admin Acetaminophen 650 mg 02/20/21 15:44 02/21/21 02:20 Acetaminophen Tab 325 Mg Tab PO 650 mg Q6HR PRN Administration Mild Pain or Fever > 100.5 Albuterol Sulfate 2.5 mg 02/20/21 20:53 Albuterol Nebulized 2.5 Mg/3 Ml INHALATION RT-Q6H PRN Shortness Of Breath Atorvastatin Calcium 80 mg 02/20/21 21:00 02/22/21 20:37 Atorvastatin 80 Mg Tab PO 80 mg HS ASIA Administration Duloxetine HCl 60 mg 02/20/21 21:00 02/22/21 20:36 Duloxetine Hcl 60 Mg Capsule.Dr PO 60 mg HS ASIA Administration Gabapentin 300 mg 02/20/21 22:00 02/23/21 08:38 Gabapentin 300 Mg Cap PO 300 mg TID ASIA Administration Sodium Chloride 1,000 mls @ 50 mls/hr 02/20/21 15:30 02/22/21 20:53 Saline 0.9% IV 50 mls/hr .Q20H ASIA Administration Morphine Sulfate 4 mg 02/20/21 15:44 02/22/21 20:38 Morphine Sulfate 4 Mg/Ml Syringe IV 4 mg Q4HR PRN Administration Severe Pain Naloxone HCl 0.2 mg 02/20/21 15:44 Naloxone 0.4 Mg/Ml 1 Ml Vial IV Q2M PRN Opioid Reversal Nicotine 1 patch 02/21/21 12:15 02/23/21 08:38 Nicotine 21mg/24hr Patch TRANSDERM 1 patch DAILY ASIA Administration Trazodone HCl 75 mg 02/20/21 21:00 02/22/21 20:36 Trazodone Hcl 50 Mg Tab PO 75 mg HS ASIA Administration Intake and Output 02/22/21 02/23/21 02/23/21 22:59 06:59 14:59 Intake Total 300 Output Total 400 Balance 300 -400 Intake: Oral 300 Output: Urine 400 Other: Voiding Method Toilet Urinal # Voids 2 02/22/21 04:58 02/21/21 04:39
--- NOTE | 2021-02-23 11:05 | P.PN ---
Subjective This is a pleasant 60 years old male with past medical history of asthma/COPD, diabetes mellitus, hypertension, hyperlipidemia, sleep apnea, history of the venous thrombosis on Coumadine He was sent to the hospital by his wound care nurse when noticed his blood pressure was on the low side to 76/40 and he was a bit lethargic and sleepy more than usual. Patient is on blood pressure medication and last time was last night. Also patient feels dizzy as well but denies chest pain. He has some exertional dyspnea. Also patient has been complaining from right-sided abdominal pain for the last 3 weeks, and vomited twice during these 3 weeks.. Is eating well but his belly is constipated for the last 4-5 days. He is a smoker smokes about 1 pack per day and he wants to quit after counseling and he likes to take nicotine patch. No alcohol or illicit tracts. He is also complaining of from bilateral leg pain he has history of 2 stents in his left leg Patient was hypotensive on admission at 85/59 and his blood pressure improved currently 207/57 Repeat labs showing WBC normal at 8.9, mild anemia 12.9, platelet level was normal. INR is 2.1 which is therapeutic range. Sodium is 133, potassium slightly elevated at 5.4. Acute kidney injury with improving creatinine 1.5 down to 1.3. Liver enzymes with no significant elevation. Troponin is negative less than 0.012. Urinalysis is still suspicious of infection. EKG showing normal sinus rhythm at [address]-T changes Chest x-ray: No acute process. KUB showing overall nonspecific but favor nonobstructive bowel gas pattern. CT of the abdomen and pelvis: No contrast: 2 cm low-density left adrenal mass, 3 mm lower right kidney calculus. Right anterior abdominal wall oval-shaped density and mass 02/21/2021 Patient abdominal pain and tenderness is improving down to /10 compared to 04/29 upon admission No other complaint. He has mild wound of about 1 inch in the middle of his midline scar, the wound looks pale and with no surrounding cellulitis, culture is requesting but felt there is no need for antibiotics as patients with no fever or leukocytosis or evidence of cellulitis. Hemodynamically stable. Hemoglobin stable at 12. INR is 2.2 despite Coumadin is held due to the hematoma Discussed the case with hematology team to assess need for anticoagulation given his remote history of DVT. They check Doppler of the lower extremity because of leg pain and it was negative. Keep holding Coumadin, and lowered the rate of normal saline with 50 down to 75 mL/h. Give 1 dose of Lasix 02/22/2021 Today patient right abdominal pain is improving and less severe complaints about 3-4/10 only. His Coumadin remains on hold. No need for any surgical intervention per surgery team Doppler of the lower extremity is negative for DVT I discussed the case with hematology/oncology team, still needs further evaluation about his anticoagulation Wound culture is growing staph however patient with no fever or leukocytosis. Infectious disease team were consulted Objective - Vital Signs Vital signs: Vital Signs Temp 98.9 F 02/22/21 07:00 Pulse 94 02/22/21 12:58 Resp 18 02/22/21 12:58 BP 122/73 02/22/21 07:00 Pulse Ox 95 02/22/21 07:00 Intake & Output 02/21/21 02/22/21 02/22/21 18:59 06:59 18:59 Intake Total 400 Output Total 680 Balance -680 400 Intake: Oral 400 Output: Urine 680 Other: Voiding Method Toilet Toilet Urinal Urinal # Voids 1 6 2 - Exam -GENERAL: The patient is alert and oriented x3, lethargic, generally weak not in any acute distress. Obese HEENT: Pupils are round and equally reacting to light. EOMI. No scleral icterus. No conjunctival pallor. Normocephalic, atraumatic. No pharyngeal erythema. No thyromegaly. CARDIOVASCULAR: S1 and S2 present. No murmurs, rubs, or gallops. PULMONARY: Chest is clear to auscultation, no wheezing or crackles. -ABDOMEN: Soft, right-sided abdominal tenderness, no rebound tenderness or guarding, nondistended, normoactive bowel sounds. No palpable organomegaly. 1 inch wound in the middle of vertical midline scar, healing with no cellulitis MUSCULOSKELETAL: No joint swelling or deformity. EXTREMITIES: No cyanosis, clubbing, or pedal edema. NEUROLOGICAL: Gross neurological examination did not reveal any focal deficits. SKIN: No rashes. No petechiae - Labs CBC & Chem 7: 02/22/21 04:58 02/21/21 04:39 Labs: Abnormal Lab Results - Last 24 Hours (Table) 02/22/21 02/22/21 02/22/21 Range/Units 04:58 07:28 11:02 RBC 4.06 L (4.30-5.90) m/uL Hgb 11.8 L (13.0-17.5) gm/dL Hct 35.8 L (39.0-53.0) % RDW 17.3 H (11.5-15.5) % PT 13.1 H (9.0-12.0) sec INR 1.3 H (<1.2) POC Glucose (mg/dL) 166 H (75-99) mg/dL Microbiology - Last 24 Hours (Table) 02/20/21 17:49 Gram Stain - Preliminary Abdomen Wound Culture - Preliminary Presumptive MRSA 02/20/21 16:50 Blood Culture - Preliminary Blood No Growth after 24 hours Assessment and Plan Assessment: right abdominal wall hematoma, 5 cm x 12 cm History of DVT on Coumadin. Doppler of the lower extremity is negative for DVT Chronic residual mid abdominal wound of 1 inch diameter healing. No wound is going to staph aureus Hypertension Diabetes mellitus Hyperlipidemia History of sleep apnea History of infected mesh and umbilical hernia status post surgical repair and removal of the mesh by Dr. Lr History of kidney stone History of colon cancer diagnosed on 10/01/2020 Plan: This is a pleasant 60 years old male who presents with right-sided abdominal wall hematoma and abdominal pain and tenderness associated with hypertension Follow-up INR Gen. hydration with normal saline at 50 mL per hour. Hold Coumadin with hematology/oncology team consult on the case. Infectious disease consult Labs and medication were reviewed.. Continue same treatment. Continue with symptomatic treatment. Resume home medication. Monitor lytes and vitals. DVT and GI prophylaxis. Further recommendations depends on the clinical course of t he patient DVT prophylaxis: no Subcutaneous heparin due to abdominal wall hematoma and hypertension GI Prophylaxis: Pepcid PT/OT physical therapy evaluation: Recommended home health care versus subacute rehab. Consult social work
[2021-02-23 11:41] LABS: Anisocytosis Slight; Basophils % (A) 0 %; Eosinophils # (A) 0.1 k/uL (0-0.7); Eosinophils % (A) 2 %; HCT 33.9 % (39.0-53.0); HGB 11.2 gm/dL (13.0-17.5); Lymphocytes % (A) 12 %; MCH 29.4 pg (25.0-35.0); MCV 88.9 fL (80.0-100.0); Mean Platelet Volume 6.9; Monocytes # (A) 0.4 k/uL (0-1.0); Monocytes % (A) 5 %; Neutrophils # (A) 6.8 k/uL (1.3-7.7); Neutrophils % (A) 80 %; Platelet Count 342 k/uL (150-450); RBC 3.82 m/uL (4.30-5.90); RDW 16.5 % (11.5-15.5); WBC 8.5 k/uL (3.8-10.6)
[2021-02-23 13:29] LABS: ALT 70 U/L (4-49); AST 60 U/L (17-59); African American GFR (CKD) >90 (>60 ml/min/1.73 sqM); Albumin 2.8 g/dL (3.5-5.0); Alkaline Phosphatase 136 U/L (38-126); Anion Gap 8 mmol/L; Blood Urea Nitrogen 13 mg/dL (9-20); Calcium 8.1 mg/dL (8.4-10.2); Carbon Dioxide 22 mmol/L (22-30); Chloride 102 mmol/L (98-107); Globulin 2.9 g/dL; Glucose 190 mg/dL (74-99); Non-African American GFR(CKD) >90 (>60 ml/min/1.73 sqM); Potassium 4.5 mmol/L (3.5-5.1); Sodium 132 mmol/L (137-145); Total Bilirubin 0.9 mg/dL (0.2-1.3); Total Protein 5.7 g/dL (6.3-8.2)
[2021-02-23 14:03] VITALS: BP 125/71; PULSE 84; RESP 16; TEMP 99.1
--- NOTE | 2021-02-23 14:49 | P.PN ---
Subjective Progress Note Date: 02/23/21 Principal diagnosis: Hematoma on Warfarin Hemoglobin remains stable Objective - Vital Signs Vital signs: Vital Signs Temp 100.0 F H 02/23/21 07:00 Pulse 88 02/23/21 07:00 Resp 18 02/23/21 07:00 BP 113/61 02/23/21 07:00 Pulse Ox 94 L 02/23/21 07:00 Intake & Output 02/22/21 02/23/21 02/23/21 18:59 06:59 18:59 Intake Total 700 Output Total 400 Balance 700 -400 Intake: Oral 700 Output: Urine 400 Other: Voiding Method Toilet Toilet Urinal Urinal # Voids 2 2 - Exam - Constitutional General appearance: Present: cooperative, no acute distress, obese - EENT Eyes: Present: anicteric sclerae, EOMI ENT: Present: hearing grossly normal - Respiratory Respiratory: bilateral: CTA - Cardiovascular Rhythm: regular Heart sounds: normal: S1, S2 Abnormal Heart Sounds: Absent: systolic murmur, diastolic murmur, rub, S3 Gallop, S4 Gallop, click, other - Peripheral edema leg Peripheral Edema: bilateral: Trace - Gastrointestinal General gastrointestinal: Present: normal bowel sounds, tenderness - Neurologic Neurologic: Present: CNII-XII intact - Musculoskeletal Musculoskeletal: Present: strength equal bilaterally - Psychiatric Psychiatric: Present: A&O x's 3, appropriate affect, intact judgment & insight - Labs CBC & Chem 7: 02/23/21 11:10 02/23/21 11:10 Labs: Abnormal Lab Results - Last 24 Hours (Table) 02/23/21 Range/Units 11:10 RBC 3.82 L (4.30-5.90) m/uL Hgb 11.2 L (13.0-17.5) gm/dL Hct 33.9 L (39.0-53.0) % RDW 16.5 H (11.5-15.5) % Microbiology - Last 24 Hours (Table) 02/20/21 17:49 Anaerobic Culture - Preliminary Abdomen 02/20/21 16:50 Blood Culture - Preliminary Blood No Growth after 48 hours Assessment and Plan Plan: - Imaging and Cardiology Venous US: report reviewed (reviewed doppler reports back to 2016) Assessment and Plan Hematoma Surgery seen pt, no intervention planned Coumadin cont to be on hold Current Visit: Yes Status: Acute Priority: High Code(s): T14.8XXA - OTHER INJURY OF UNSPECIFIED BODY REGION, INITIAL ENCOUNTER SNOMED Code(s): 713811463 Small Bowel Adenocarcinoma - On 09/29/20 - He had a small bowel resection with a partial omentectomy, and 2 and anastomosis. Pathology revealed acute and chronic inflammation from abdominal wall, soft tissue. 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 All margins were negative. Depth of invasion was T3. No lymph nodes were sampled. 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 - 11/16: Colonoscopy and EGD for concern of blood loss (no active bleed) - Plans were for adjuvant therapy to reduce the risk of recurrence once patient was completely healed from surgery. - He continues under wound care still. Consult to wound care while inpt ordered and will await complete healing post operatively to discuss and plan recommendations for adjuvant therapy as outpatient. Current Visit: Yes Status: Acute Priority: High Code(s): C80.1 - MALIGNANT (PRIMARY) NEOPLASM, UNSPECIFIED SNOMED Code(s): 338053724 History Left leg DVT Remote history of DVT 11/2016. This admission - Repeat doppler is neg for DVT in the LLE. Noted that Hgb is currently stable >11 Current Visit: No Status: Chronic Priority: Low Code(s): I82.402 - ACUTE EMBOLISM AND THOMBOS UNSP DEEP VEINS OF L LOW EXTREM SNOMED Code(s): 936905466 Plan: Would need to confirm with cardiology regarding anticoagulation use and need moving forward, however from hematology standpointm and history of DVT, this admission The LLE doppler was neg for chronic DVT. Pt could be discontinued off of coumadin based on the Hx of DVT 4 years ago and being on coumadin the entire time (standard of care is 3-6 mo anticoagulation). DEFER FINAL rec to [facility] as last years family believes this has been managed by them. Will need to confirm no underlying cardiology need for anticoagulation prior to final decision to discontinue. Physician Attest: I have completed the full history and physical and agree with above dictation, dictated as a ascribe.
--- NOTE | 2021-02-23 15:26 | P.PN ---
Subjective Progress Note Date: 02/23/21 CHIEF COMPLAINT: Abdominal wall hematoma HISTORY OF PRESENT ILLNESS: Patient is lying in bed comfortably. He does report minimal abdominal pain. He reports that it's controlled. He is tolerating diet. Denies any nausea or vomiting. Patient did have a temp of 100 this morning. WBC 8.5 hemoglobin 11.2 platelets 342 Patient seen and examined with Dr. chang PHYSICAL EXAM: VITAL SIGNS: Reviewed. GENERAL: Well-developed in no acute distress. HEENT: No sclera icterus. Extraocular movements grossly intact. Moist buccal mucosa. Head is atraumatic, normocephalic. ABDOMEN: Soft. Nondistended. NEUROLOGIC: Alert and oriented. Cranial nerves II through XII grossly intact. ASSESSMENT: 1. Large anterior abdominal wall hematoma PLAN: -Patient can be discharged from surgical standpoint -No surgical intervention planned -Continue conservative management -Hold Coumadin -Continue regular diet Physician [place] note has been reviewed by physician. Signing provider agrees with the documented findings, assessment, and plan of care. Objective - Vital Signs Vital signs: Vital Signs Temp 99.1 F 02/23/21 14:03 Pulse 84 02/23/21 14:03 Resp 16 02/23/21 14:03 BP 125/71 02/23/21 14:03 Pulse Ox 96 02/23/21 14:03 Intake & Output 02/22/21 02/23/21 02/23/21 18:59 06:59 18:59 Intake Total 700 400 Output Total 400 Balance 700 -400 400 Intake: IV 400 Sodium Chloride 0.9% 1, 400 000 ml @ 50 mls/hr IV . Q20H [facility] Rx#:[id number] Oral 700 Output: Urine 400 Other: Voiding Method Toilet Toilet Urinal Urinal # Voids 2 2 - Labs CBC & Chem 7: 02/23/21 11:10 02/23/21 11:10 Labs: Abnormal Lab Results - Last 24 Hours (Table) 02/23/21 02/23/21 Range/Units 11:10 11:10 RBC 3.82 L (4.30-5.90) m/uL Hgb 11.2 L (13.0-17.5) gm/dL Hct 33.9 L (39.0-53.0) % RDW 16.5 H (11.5-15.5) % Sodium 132 L (137-145) mmol/L Glucose 190 H (74-99) mg/dL Calcium 8.1 L (8.4-10.2) mg/dL AST 60 H (17-59) U/L ALT 70 H (4-49) U/L Alkaline Phosphatase 136 H (38-126) U/L Total Protein 5.7 L (6.3-8.2) g/dL Albumin 2.8 L (3.5-5.0) g/dL Microbiology - Last 24 Hours (Table) 02/20/21 17:49 Anaerobic Culture - Preliminary Abdomen 02/20/21 16:50 Blood Culture - Preliminary Blood No Growth after 48 hours
--- NOTE | 2021-02-23 16:42 | PN ---
PROGRESS NOTE DATE OF SERVICE: 02/23/2021 REASON FOR FOLLOWUP: Positive abdominal culture representing MRSA. INTERVAL HISTORY: Patient did have a low-grade fever this morning of 100 degrees Fahrenheit axillary. The patient afebrile since then. The patient overall is feeling better. Breathing comfortably. No chest pain or cough. No worsening abdominal pain. No drainage from the abdominal wound. No diarrhea. PHYSICAL EXAMINATION: Blood pressure 125/71 with a pulse of 80, temperature 98.1. He is 96% on room air. General description is a middle-aged male lying in bed in no distress. Respiratory system: Unlabored breathing, decreased intensity of breath sounds. Heart S1-S2 regular rate and rhythm. Abdomen: Soft. Currently no open wound or any drainage. LABS: Blood culture has been negative. Abdominal wall culture presumptive MRSA. DIAGNOSTIC IMPRESSION AND PLAN: Patient with a positive culture from the abdominal wall in this patient currently does not have any wound. CT did show large hematoma with culture positive for MRSA, slightly concerning. However, the patient did not have any elevated white count. Will repeat his blood cultures, check CRP. If spikes further fever, we may need to start him on antibiotic towards that pathogen. For now, monitor clinical course closely. Continue supportive care. MMODL / IJN: [id number] /
== END 2021-02-23 18:20 | disposition home or self-care (01) ==
LOC: EC 12:03 → 6NMEDSUR 15:44
PROVIDERS: ADMIT Internal Medicine; ATTEND Internal Medicine
DX: N17.9 Acute kidney failure, unspecified (principal); B95.62 Methicillin resistant Staphylococcus aureus infection as the cause of diseases classified elsewhere; C18.9 Malignant neoplasm of colon, unspecified; D09.9 Carcinoma in situ, unspecified; D64.9 Anemia, unspecified; E11.51 Type 2 diabetes mellitus with diabetic peripheral angiopathy without gangrene; E78.5 Hyperlipidemia, unspecified; E86.0 Dehydration; F12.90 Cannabis use, unspecified, uncomplicated; F17.210 Nicotine dependence, cigarettes, uncomplicated; F32.9 Major depressive disorder, single episode, unspecified; F41.9 Anxiety disorder, unspecified; G89.29 Other chronic pain; I10 Essential (primary) hypertension; I82.402 Acute embolism and thrombosis of unspecified deep veins of left lower extremity; J44.9 Chronic obstructive pulmonary disease, unspecified; K59.00 Constipation, unspecified; S30.1XXA Contusion of abdominal wall, initial encounter; Z79.01 Long term (current) use of anticoagulants; Z79.82 Long term (current) use of aspirin; Z79.84 Long term (current) use of oral hypoglycemic drugs; Z79.899 Other long term (current) drug therapy; Z82.49 Family history of ischemic heart disease and other diseases of the circulatory system; Z83.3 Family history of diabetes mellitus; Z85.038 Personal history of other malignant neoplasm of large intestine; Z86.718 Personal history of other venous thrombosis and embolism; Z87.442 Personal history of urinary calculi; Z90.49 Acquired absence of other specified parts of digestive tract; Z96.649 Presence of unspecified artificial hip joint; Z96.651 Presence of right artificial knee joint
CPT/HCPCS: 96376; 96361 ×3; 96375 ×3; 96365; 96366; 99285; 36415; 93005; 97162; 97166; 80053 ×2; 80048 ×2; 83605; 84484; 85025 ×3; 85027; 85610 ×3; 85730 ×2; 86140; 81001; 87040 ×2; 87070; 87205; 87075; 87077; 87186; 84145; 71046; 74018; 93971; 74176; G0378 ×4; S4990 ×3; J2543; J2270; J1940; J1885

== ENCOUNTER 2021-03-20 12:34 | Inpatient (IN) | payer MEDICARE ==
[2021-03-20] MEDS ORDERED: ACETAMINOPHEN TAB 325 MG TAB PO STA (12:54)
[2021-03-20] MEDS ORDERED: SODIUM CHLORIDE 0.9% 1,000 ML IV STA (12:55)
[2021-03-20] MEDS ORDERED: VANCOMYCIN IV PER PHARMACY 1 EACH MISC MISCELLANE PRN (13:01)
[2021-03-20] MEDS ORDERED: VANCOMYCIN 2,000 MG in SODIUM CHLORIDE 0.9% 500 ML 500 ML IVPB STA (13:07)
[2021-03-20 14:31] LABS: Anisocytosis Slight; Basophils % (A) 1 %; Eosinophils # (A) 0.2 k/uL (0-0.7); Eosinophils % (A) 3 %; HCT 29.2 % (39.0-53.0); HGB 9.8 gm/dL (13.0-17.5); Lymphocytes # (A) 1.3 k/uL (1.0-4.8); Lymphocytes % (A) 20 %; MCH 29.5 pg (25.0-35.0); MCHC 33.5 g/dL (31.0-37.0); MCV 88.2 fL (80.0-100.0); Mean Platelet Volume 6.4; Monocytes # (A) 0.2 k/uL (0-1.0); Monocytes % (A) 3 %; Neutrophils # (A) 4.7 k/uL (1.3-7.7); Neutrophils % (A) 71 %; Platelet Count 496 k/uL (150-450); RBC 3.31 m/uL (4.30-5.90); RDW 16.2 % (11.5-15.5); WBC 6.6 k/uL (3.8-10.6)
[2021-03-20] MEDS ORDERED: NALOXONE 0.4 MG/ML 1 ML VIAL IV PRN (14:32)
--- NOTE | 2021-03-20 14:32 | ED ---
General Adult HPI - General Chief complaint: Wound/Laceration Stated complaint: MRSA on stomach Time Seen by Provider: 03/20/21 12:45 Source: patient, family, RN notes reviewed Mode of arrival: wheelchair Limitations: no limitations - History of Present Illness Initial comments: Patient is a 60-year-old male that presents to the emergency department with a right lower abdomen wound that is draining. He notes that several days ago he got a culture done and it came back MRSA positive. He was sent by his primary care to get antibiotic through an IV. He denied any other issues or complaints. He was otherwise a well-appearing 60-year-old male in good spirits while sitting up in bed during exam and interview. He denied any chest pain shortness of breath headache nausea vomiting diarrhea constipation fever fatigue chills. - Related Data Home Medications Medication Instructions Recorded Confirmed DULoxetine HCL [Cymbalta] 60 mg PO HS 10/08/17 02/20/21 metFORMIN HCL [Glucophage] 1,000 mg PO BID 10/08/17 02/20/21 Glimepiride [Amaryl] 1 mg PO HS 11/20/18 02/20/21 Omeprazole [PriLOSEC] 40 mg PO HS 11/20/18 02/20/21 traZODone HCL 75 mg PO HS 11/20/18 02/20/21 Atorvastatin [Lipitor] 80 mg PO HS 07/07/19 02/20/21 Albuterol Sulfate [Proair Hfa] 2 puff INHALATION RT-Q6H PRN 04/30/20 02/20/21 Benazepril HCl 20 mg PO HS 04/30/20 02/20/21 Gabapentin [Neurontin] 300 mg PO TID 09/29/20 02/20/21 Tiotropium [place] [Spiriva 2 puff INHALATION RT-DAILY 09/29/20 02/20/21 Respimat] Triamterene-Hctz 37.5-25Mg 1 tab PO DAILY 09/29/20 02/20/21 [Maxzide 37.5-25] Calcium Carbonate/Vitamin D3 2 tab PO DAILY 11/14/20 02/20/21 [Calcium 600-Vit D3 10 mcg (400 Iu)] Ferrous Sulfate [Iron (65 MG 325 mg PO BID 11/14/20 02/20/21 Elemental)] Multivitamins, Thera [Multivitamin 1 tab PO HS 11/14/20 02/20/21 (formulary)] Aspirin EC [Ecotrin Low Dose] 81 mg PO DAILY 02/20/21 02/20/21 Allergies Allergy/AdvReac Type Severity Reaction Status Date / Time No Known Allergies Allergy Verified 03/20/21 12:37 Review of Systems ROS Statement: Those systems with pertinent positive or pertinent negative responses have been documented in the HPI. ROS Other: All systems not noted in ROS Statement are negative. Past Medical History Past Medical History: Asthma, Cancer, COPD, Diabetes Mellitus, Deep Vein Thrombosis (DVT), GERD/Reflux, Hyperlipidemia, Hypertension, Sleep Apnea/CPAP/BIPAP Additional Past Medical History / Comment(s): Open incisional area from umbilical hernia sx, hx infected mesh. AWAITING TWYLA HIP REPLACEMENT. Hx DVT LEFT LEG, HX OF KIDNEY STONES. Hx anemia w/ transfusions, found tumors in colon w/ blockage, Colon cancer diagnosed 10/01/20; has open wound w/ wound vac. Uses cpap. Edema BLE. History of Any Multi-Drug Resistant Organisms: MRSA Date of last positivie culture/infection: 03/15/21 MDRO Source:: Abdomen Past Surgical History: Appendectomy, Hernia Repair, Joint Replacement Additional Past Surgical History / Comment(s): Right knee REPLACED, hernia x2, ABD AORTOGRAM 02/24/17, Hernia repair w/ mesh removal 04/10/20. Hernia mesh removed 10/01/20. 3/4 Parathyroid removal surgery 01/18/2020. Tumor removal small intestine 10/01/20. hernia mesh removel 2020. tumor removal small intestine 2020. Past Anesthesia/Blood Transfusion Reactions: No Reported Reaction Past Psychological History: Anxiety, Depression Smoking Status: Current every day smoker Past Alcohol Use History: None Reported Past Drug Use History: Marijuana - Past Family History Mother History Unknown: Yes Family Medical History: Dementia, Diabetes Mellitus, Hyperlipidemia, Renal Di sease Additional Family Medical History / Comment(s): dialysis Father Family Medical History: Coronary Artery Disease (CAD), Diabetes Mellitus General Exam Limitations: no limitations General appearance: alert, in no apparent distress, obese Head exam: Present: atraumatic, normocephalic, normal inspection Eye exam: Present: normal appearance, PERRL, EOMI. Absent: scleral icterus, conjunctival injection, periorbital swelling Neck exam: Present: normal inspection Respiratory exam: Present: normal lung sounds bilaterally. Absent: respiratory distress, wheezes, rales, rhonchi, stridor Cardiovascular Exam: Present: regular rate, normal rhythm, normal heart sounds. Absent: systolic murmur, diastolic murmur, rubs, gallop, clicks GI/Abdominal exam: Present: soft, normal bowel sounds. Absent: distended, tenderness, guarding, rebound, rigid Extremities exam: Present: normal inspection, full ROM, normal capillary refill. Absent: tenderness, pedal edema, joint swelling, calf tenderness Neurological exam: Present: alert. Absent: oriented X3 Psychiatric exam: Present: normal affect, normal mood Skin exam: Present: warm, dry, intact, normal color, other (Small draining wound measuring approximately 0.5 cm to the right lower abdomen, white pus is expressed with minimal effort.). Absent: rash Course Vital Signs 03/20/21 12:35 Temperature 98.5 F Pulse Rate 101 H Respiratory 20 Rate Blood Pressure 116/55 O2 Sat by Pulse 97 Oximetry Medical Decision Making - Medical Decision Making 60-year-old male with a MRSA positive wound to right lower abdomen. Basic, blood cultures, 1 L normal saline ordered. Vancomycin per pharmacy dosing ordered. Case discussed with Dr. Vargas, patient will be admitted to the hospital. Dr. Rayo was consulted and will accept the admit. He wants infectious disease on consult. Disposition Clinical Impression: Positive result for methicillin resistant Staphylococcus aureus (MRSA) screening Disposition: ADMITTED IP TO THIS HOSP Condition: Stable Is patient prescribed a controlled substance at d/c from ED?: No Referrals: Izaiah Bond DO [Primary Care Provider] - 1-2 days Time of Disposition: 14:32
[2021-03-20] MEDS ORDERED: ACETAMINOPHEN TAB 325 MG TAB PO PRN (14:34)
[2021-03-20 14:41] LABS: ALT 55 U/L (4-49); AST 30 U/L (17-59); African American GFR (CKD) >90 (>60 ml/min/1.73 sqM); Albumin 2.9 g/dL (3.5-5.0); Alkaline Phosphatase 138 U/L (38-126); Anion Gap 9 mmol/L; Blood Urea Nitrogen 17 mg/dL (9-20); Calcium 9.4 mg/dL (8.4-10.2); Carbon Dioxide 21 mmol/L (22-30); Chloride 102 mmol/L (98-107); Glucose 331 mg/dL (74-99); Non-African American GFR(CKD) >90 (>60 ml/min/1.73 sqM); Sodium 132 mmol/L (137-145); Total Bilirubin 0.4 mg/dL (0.2-1.3)
[2021-03-20] MEDS ORDERED: HYDROcodone/APAP 5-325MG 1 EACH TAB PO STA (15:01)
[2021-03-20 16:37] LABS: Glucose,Whole Blood 226 mg/dL (75-99)
[2021-03-20] MEDS: GABAPENTIN 300 MG CAP PO SCH ×2 (16:46→23:00)
[2021-03-20] MEDS: INSULIN ASPART (NovoLOG) 100 UNIT/ML VIAL SQ SCH ×2 (17:03→23:01)
--- NOTE | 2021-03-20 17:35 | HP ---
HISTORY AND PHYSICAL DATE OF SERVICE: 03/20/2021 CHIEF COMPLAINTS: Abdominal wall wound and MRSA injury. HISTORY OF PRESENT ILLNESS: This 60-year-old gentleman with a past medical history of multiple medical problems including asthma, COPD, history of diabetes, DVT, hypertension, hyperlipidemia, history of open incisional hernia in the umbilicus, history of hip replacement, history of MRSA, history of DJD being followed by Dr. Bond in the outpatient setting was noted to have a drainage area on the right side of the abdomen and culture was obtained which was found to be MRSA and the patient was directed to [facility] and admitted for further evaluation and treatment. The patient was previously admitted with right abdominal hematoma in the same area. The patient is also on Coumadin for DVT. Chronic residual abdominal wall wound was also noted. There is no history of fevers or rigors. No history of headache, loss of consciousness, seizures. PAST MEDICAL HISTORY: History of asthma, COPD, diabetes, DVT, GERD, hypertension, hyperlipidemia, abdominal wall wound hematoma. MEDICATIONS: Home medications are trazodone, Spiriva, Bactrim, Prilosec, multivitamins, Demerol, Neurontin, iron, Cymbalta, vitamin D3, Lipitor, Ecotrin, ProAir. ALLERGIES: None. FAMILY HISTORY: History of diabetes, dementia, hyperlipidemia, history of renal disease on hemodialysis. SOCIAL HISTORY: History of smoking on a daily basis. History of alcohol. REVIEW OF SYSTEMS: ENT No history of diminished hearing or vision. CARDIOVASCULAR No angina or palpitations. RESPIRATORY As mentioned earlier. GI No nausea, vomiting, or diarrhea. No dysuria or hematuria. NERVOUS No numbness or weakness. ALLERGY/IMMUNOLOGY No asthma or hayfever. MUSCULOSKELETAL As mentioned earlier. HEMATOLOGY/ONCOLOGY As mentioned earlier. ENDOCRINE As mentioned earlier. CONSTITUTIONAL As mentioned earlier. DERMATOLOGY Negative. RHEUMATOLOGY Negative, PSYCHIATRY As mentioned earlier. PHYSICAL EXAMINATION: Alert and oriented x3. Pulse 101 blood pressure 116/55, respiration 20, temperature 98.5, pulse ox 97% on 2 L. HEENT: Conjunctivae normal. Oral mucosa moist. NECK: No jugular venous distention. No lymph node enlargement. CARDIOVASCULAR: S1, S2, muffled. No S3, no S4, RESPIRATORY: Diminished breath sounds at the bases. No rhonchi, no crackles. ABDOMEN: Soft, obese, nontender. Healed scar present. LEGS: No edema, no swelling. NERVOUS SYSTEM: Higher functions mentioned earlier. Moves all four limbs. No focal motor or sensory deficits. LYMPHATICS: No lymph node in neck or axilla. SKIN: No rash. JOINTS: No active deforming arthropathy. LABS: WBC 6.2, hemoglobin 9.8, sodium 132, potassium 5 and glucose 331. ALT 55. ASSESSMENT: 1. Right upper abdominal wall with MRSA with failure of outpatient treatment. 2. History of abdominal wall hematoma. 3. Diabetes mellitus type 2, uncontrolled with hyperglycemia. 4. Hyponatremia. 5. Elevated ALT and alkaline phosphatase. 6. Anemia, normocytic anemia of chronic disease. 7. Obesity with body mass index of 38.4. 8. History of asthma, chronic obstructive pulmonary disease. 9. History of DVT. 10.Gastroesophageal reflux disease. 11.Hypertension. 12.Hyperlipidemia. 13.History of sleep apnea. 14.History of open incisional hernia repair infection. 15.Previously history of MRSA. 16.History of colon cancer. 17.History of appendectomy. 18.History of hernia surgery. 19.History of degenerative joint disease. 20.History of anxiety, depression. 21.History of nicotine dependence. 22.Obesity with body mass index of 38.6. 23.FULL CODE. RECOMMENDATION: In this 60-year-old gentleman who presented with multiple complex medical issues, we will monitor the patient closely, initiate vancomycin. Resume the home medication. Diabetic control. Infectious disease evaluation with Dr. Lehmna. Otherwise, continue the rest of medications. Prognosis guarded because of multiple complex medical issues. Further recommendations to follow. MMODL / IJN: [id number] /
[2021-03-20] MEDS ORDERED: diphenhydrAMINE 50 MG/ML 1 ML VIAL IVP STA (19:19)
[2021-03-20] MEDS: ATORVASTATIN 80 MG TAB PO SCH ×2 (19:23→23:00)
[2021-03-20] MEDS: SODIUM CHLORIDE 0.9% 1,000 ML IV SCH ×2 (21:30→23:06)
[2021-03-20 21:57] LABS: Glucose,Whole Blood 170 mg/dL (75-99)
[2021-03-20] MEDS: traZODone HCL 50 MG TAB PO SCH (22:58)
[2021-03-20] MEDS: FERROUS SULFATE 325 MG TAB PO SCH (23:00)
[2021-03-20] MEDS: HYDROcodone/APAP 5-325MG 1 EACH TAB PO PRN (23:00)
[2021-03-20] MEDS: PANTOPRAZOLE 40 MG TABLET PO SCH (23:00)
[2021-03-20] MEDS: MULTIVITAMINS, THERA 1 EACH TAB PO SCH (23:00)
[2021-03-20] MEDS: DULoxetine HCL 60 MG CAPSULE.DR PO SCH (23:00)
[2021-03-20] MEDS: GLIMEPIRIDE 1 MG TAB PO SCH (23:12)
[2021-03-21] MEDS: SODIUM CHLORIDE 0.9% 1,000 ML IV SCH ×5 (02:15→20:58)
[2021-03-21 02:56] LABS: Appearance,Urine Clear (Clear); Bilirubin,Urine Negative (Negative); Blood,Urine Negative (Negative); Color,Urine Light Yellow; Glucose,Urine (UA) Negative (Negative); Ketones,Urine Negative (Negative); Leukocyte Esterase,Urine Negative (Negative); Nitrite,Urine Negative (Negative); Protein,Urine Negative (Negative); Specific Gravity,Urine 1.006 (1.001-1.035); Urobilinogen,Urine <2.0 mg/dL (<2.0)
--- NOTE | 2021-03-21 03:57 | CT ---
EXAMINATION TYPE: CT abdomen pelvis wo con DATE OF EXAM: 03/20/2021 COMPARISON: 02/20/2021 HISTORY: abdominal pain, abscess CT DLP: 1513.4 mGycm Automated exposure control for dose reduction was used. Images obtained from the diaphragm to the floor the pelvis without contrast. Lung bases are clear. There is no pleural effusion. Heart size is normal. There is no pericardial eff usion. Liver spleen stomach pancreas appear intact. Bile ducts are not dilated. Gallbladder appears normal. There is epigastric ventral hernia that contains bowel. Hernia measures approximately 5.5 x 2 cm. There is no retroperitoneal adenopathy. There is 1.5 Ramiro low-density mass left adrenal gland. Kidn eys have normal size. There is no hydronephrosis. Ureters are not dilated. There is some mild thickening on the right anterior mid abdominal wall. This measures up to 12 mm in thickness. This is consistent with hematoma or abscess that is mostly cleared compared to previous ex am. There is some linear fat stranding in the subcutaneous tissues over the right mid abdomen and con sistent with surgery. There are a few air bubbles. There is a 3 mm calculus lower pole right kidney. The bladder distends smoothly. There is no inguinal hernia. There is no evidence of a pelvic mass. Th ere is no free fluid in the pelvis. There is previous surgery at the sigmoid colon with surgical clip s. There are clips at the cecum. Appendix is not seen. There is no mesenteric edema. There is no ascites or free air. There is no bowel obstruction. Lumbar vertebra have normal alignment. There is minor spur formation. There is no compression fractur e. Posterior elements are intact. Bony pelvis is intact. The hip joints are intact. There is right hi p joint space narrowing with spur formation. IMPRESSION: There is large fluid collection along the inside of the right anterior abdominal wall which measured up to 6 cm in thickness and is mostly cleared on today's exam. There is epigastric ventral hernia increased compared to last exam with small bowel loops within the hernia. No evidence of bowel obstruction. Nonobstructing right renal calculus unchanged. Fat stranding on the right anterior abdomen subcutaneo us tissues that could relate to previous drainage catheter
[2021-03-21] MEDS: VANCOMYCIN 2,000 MG in SODIUM CHLORIDE 0.9% 500 ML 500 ML IVPB SCH ×2 (04:06→18:06)
[2021-03-21 05:41] LABS: Glucose,Whole Blood 155 mg/dL (75-99)
[2021-03-21] MEDS: TIOTROPIUM 2.5 MCG INHALER INHALATION SCH (07:45)
[2021-03-21 07:46] LABS: Glucose,Whole Blood 151 mg/dL (75-99)
[2021-03-21] MEDS: HYDROcodone/APAP 5-325MG 1 EACH TAB PO PRN ×3 (08:04→23:34)
[2021-03-21] MEDS: ASPIRIN 81 MG PO SCH (08:04)
[2021-03-21] MEDS: CALCIUM CARB-VIT D 500 MG-5 MCG TAB PO SCH (08:05)
[2021-03-21] MEDS: INSULIN ASPART (NovoLOG) 100 UNIT/ML VIAL SQ SCH ×4 (08:05→20:53)
[2021-03-21] MEDS: FERROUS SULFATE 325 MG TAB PO SCH ×2 (08:05→20:53)
[2021-03-21] MEDS: GABAPENTIN 300 MG CAP PO SCH ×3 (08:05→20:53)
[2021-03-21 10:56] LABS: Basophils # (A) 0.07 X 10*3/uL (0.00-0.10); Basophils % (A) 1.1 %; Eosinophils # (A) 0.31 X 10*3/uL (0.04-0.35); HCT 27.7 % (39.6-50.0); HGB 8.7 g/dL (13.0-17.0); Lymphocytes # (A) 1.68 X 10*3/uL (0.90-5.00); Lymphocytes % (A) 27.1 %; MCH 27.4 pg (27.0-32.0); MCHC 31.4 g/dL (32.0-37.0); MCV 87.4 fL (80.0-97.0); Mean Platelet Volume 8.8 fL (9.5-12.2); Monocytes # (A) 0.36 X 10*3/uL (0.20-1.00); Monocytes % (A) 5.8 %; Neutrophils # (A) 3.63 X 10*3/uL (1.80-7.70); Neutrophils % (A) 58.4 %; Platelet Count 420 X 10*3/uL (140-440); RBC 3.17 X 10*6/uL (4.40-5.60); RDW 16.3 % (11.5-14.5); WBC 6.21 X 10*3/uL (4.50-10.00)
--- NOTE | 2021-03-21 11:45 | P.GSCN ---
History of Present Illness Consult date: 03/21/21 History of present illness: CHIEF COMPLAINT: Abdominal wound drainage HISTORY OF PRESENT ILLNESS: This is a 60-year-old male with a known history of DVT anticoagulated Coumadin, diabetes, hypertension and healed chronic abdominal wound. He has a history of colon cancer status post small bowel resection in September 2020. Also of the time he had infected hernia mesh that was removed. Patient recently hospitalized earlier in February for abdominal wall hematoma. Patient presents to the hospital today with drainage from incision sites on the right side of his abdominal wall. He reports that it was cultured outpatient and was growing MRSA and his PCP told him to present to the hospital for IV antibiotics. Computed tomography scan of abdomen and pelvis was completed there is a large fluid collection along the inside of the right anterior abdominal wall which measured up to 6 cm in thickness and is mostly cleared on today's exam. There is epigastric ventral hernia increased compared to last exam with small bowel loops within the hernia. No evidence of bowel obstruction. Fat stranding on the right anterior abdomen subcu tissue that could relate to previous drainage catheter. Patient denies any fevers chills or sweats. He is having a purulent yellowish discharge from his abdominal wound. He's been started on antibiotics. Surgical consult was placed for abdominal wound infection. PAST MEDICAL HISTORY: See list. PAST SURGICAL HISTORY: See list. MEDICATIONS: See list. ALLERGIES: See list. SOCIAL HISTORY: No illicit drug use. REVIEW OF SYSTEMS: CONSTITUTIONAL: Denies fever or chills. HEENT: Denies blurred vision, vision changes, or eye pain. Denies hemoptysis CARDIOVASCULAR: Denies chest pain or pressure. RESPIRATORY: No shortness of breath. GASTROINTESTINAL: See HPI for pertinent findings HEMATOLOGIC: Denies bleeding disorders. GENITOURINARY: Denies any blood in urine or increased urinary frequency. SKIN: Denies pruitis. Denies rash. PHYSICAL EXAM: VITAL SIGNS: Reviewed GENERAL: Well-developed in no acute distress. HEENT: No sclera icterus. Extraocular movements grossly intact. Moist buccal mucosa. Head is atraumatic, normocephalic. No nasal drainage. ABDOMEN: Soft. nondistended. Right-sided abdomen are 2 small holes about a week 3-5 mm in size. Each hole is draining a yellowish to purulent discharge. There is no erythema noted on the skin. Minimal tenderness with palpation. There is a small area of firmness that is palpable. Still NEUROLOGIC: Alert and oriented. Cranial nerves II through XII grossly intact. LABORATORY DATA: WBC is 6.21 hemoglobin 8.7 platelets 420 sodium 132 potassium is 5 creatinine 0.78 glucose 151 UA negative for infection IMAGING: computed tomography scan findings as stated above ASSESSMENT: 1. Abdominal wound infection with computed tomography scan findings showing fat stranding on the right anterior abdomen subcutaneous tissue that could relate to previous drainage catheter. 2. Recent right abdominal wall hematoma decreased in size noted on CAT scan 3. History of colon cancer status post small bowel resection in September 2020 and also infected hernia mesh removed at that time PLAN: -No surgical intervention planned -Consult wound care service -Continue antibiotics -Agree with ID consult -Continue regular diet Thank you for this consultation Physician Director Web note has been reviewed by physician. Signing provider agrees with the documented findings, assessment, and plan of care. Past Medical History Past Medical History: Asthma, Cancer, COPD, Diabetes Mellitus, Deep Vein Thrombosis (DVT), GERD/Reflux, Hyperlipidemia, Hypertension, Sleep Apnea/CPAP/BIPAP Additional Past Medical History / Comment(s): Open incisional area from umbilical hernia sx, hx infected mesh. AWAITING TWYLA HIP REPLACEMENT. Hx DVT LEFT LEG, HX OF KIDNEY STONES. Hx anemia w/ transfusions, found tumors in colon w/ blockage, Colon cancer diagnosed 10/01/20; has open wound w/ wound vac. Uses cpap. Edema BLE. History of Any Multi-Drug Resistant Organisms: MRSA Year Discovered:: 03/15/21 MDRO Source:: Abdomen Past Surgical History: Appendectomy, Hernia Repair, Joint Replacement Additional Past Surgical History / Comment(s): Right knee REPLACED, hernia x2, ABD AORTOGRAM 02/24/17, Hernia repair w/ mesh removal 04/10/20. Hernia mesh removed 10/01/20. 3/4 Parathyroid removal surgery 01/18/2020. Tumor removal small intestine 10/01/20. hernia mesh removel 2020. tumor removal small intestine 2020. Past Anesthesia/Blood Transfusion Reactions: No Reported Reaction Past Psychological History: Anxiety, Depression Additional Psychological History / Comment(s): Pt has his adult nik living with him. He has a cane, walker. He drives. He is disabled. Smoking Status: Current some day smoker Past Alcohol Use History: None Reported Additional Past Alcohol Use History / Comment(s): Pt started smoking in 1973, and is a 1 ppd smoker. Past Drug Use History: Marijuana Additional Drug Use History / Comment(s): no marijuana in 1 month currently - Past Family History Mother History Unknown: Yes Family Medical History: Dementia, Diabetes Mellitus, Hyperlipidemia, Renal Disease Additional Family Medical History / Comment(s): dialysis Father Family Medical History: Coronary Artery Disease (CAD), Diabetes Mellitus Medications and Allergies Home Medications Medication Instructions Recorded Confirmed Type DULoxetine HCL [Cymbalta] 60 mg PO HS 10/08/17 03/20/21 History Glimepiride [Amaryl] 1 mg PO HS 11/20/18 03/20/21 History Omeprazole [PriLOSEC] 40 mg PO HS 11/20/18 03/20/21 History traZODone HCL 75 mg PO HS 11/20/18 03/20/21 History Atorvastatin [Lipitor] 80 mg PO HS 07/07/19 03/20/21 History Albuterol Sulfate [Proair Hfa] 2 puff INHALATION RT-Q6H PRN 04/30/20 03/20/21 History Gabapentin [Neurontin] 300 mg PO TID 09/29/20 03/20/21 History Tiotropium [place] [Spiriva 2 puff INHALATION RT-DAILY 09/29/20 03/20/21 History Respimat] Calcium Carbonate/Vitamin D3 2 tab PO DAILY 11/14/20 03/20/21 History [Calcium 600-Vit D3 10 mcg (400 Iu)] Ferrous Sulfate [Iron (65 MG 325 mg PO BID 11/14/20 03/20/21 History Elemental)] Multivitamins, Thera [Multivitamin 1 tab PO HS 11/14/20 03/20/21 History (formulary)] Aspirin EC [Ecotrin Low Dose] 81 mg PO DAILY 02/20/21 03/20/21 History Sulfamethox-Tmp 800-160Mg [Bactrim 1 tab PO Q12HR 03/20/21 03/20/21 History DS 800-160 mg] Allergies Allergy/AdvReac Type Severity Reaction Status Date / Time No Known Allergies Allergy Verified 03/20/21 14:45 Surgical - Exam Vital Signs Temp Pulse Resp BP Pulse Ox 98.5 F 101 H 20 116/55 97 03/20/21 12:35 03/20/21 12:35 03/20/21 12:35 03/20/21 12:35 03/20/21 12:35 Results - Labs 03/21/21 06:59 03/21/21 06:59 Abnormal Lab Results - Last 24 Hours (Table) 03/20/21 03/20/21 03/20/21 Range/Units 14:15 14:15 16:35 RBC 3.31 L (4.30-5.90) m/uL Hgb 9.8 L (13.0-17.5) gm/dL Hct 29.2 L (39.0-53.0) % MCHC (32.0-37.0) g/dL RDW 16.2 H (11.5-15.5) % Plt Count 496 H (150-450) k/uL MPV (9.5-12.2) fL Immature Gran # (0.00-0.04) X 10*3/uL Sodium 132 L (137-145) mmol/L Carbon Dioxide 21 L (22-30) mmol/L Glucose 331 H (74-99) mg/dL POC Glucose (mg/dL) 226 H (75-99) mg/dL ALT 55 H (4-49) U/L Alkaline Phosphatase 138 H (38-126) U/L Total Protein 6.0 L (6.3-8.2) g/dL Albumin 2.9 L (3.5-5.0) g/dL 03/20/21 03/21/21 03/21/21 Range/Units 21:56 05:39 06:59 RBC 3.17 L (4.30-5.90) m/uL Hgb 8.7 L (13.0-17.5) gm/dL Hct 27.7 L (39.0-53.0) % MCHC 31.4 L (32.0-37.0) g/dL RDW 16.3 H (11.5-15.5) % Plt Count (150-450) k/uL MPV 8.8 L (9.5-12.2) fL Immature Gran # 0.16 H (0.00-0.04) X 10*3/uL Sodium (137-145) mmol/L Carbon Dioxide (22-30) mmol/L Glucose (74-99) mg/dL POC Glucose (mg/dL) 170 H 155 H (75-99) mg/dL ALT (4-49) U/L Alkaline Phosphatase (38-126) U/L Total Protein (6.3-8.2) g/dL Albumin (3.5-5.0) g/dL 03/21/21 Range/Units 07:36 RBC (4.30-5.90) m/uL Hgb (13.0-17.5) gm/dL Hct (39.0-53.0) % MCHC (32.0-37.0) g/dL RDW (11.5-15.5) % Plt Count (150-450) k/uL MPV (9.5-12.2) fL Immature Gran # (0.00-0.04) X 10*3/uL Sodium (137-145) mmol/L Carbon Dioxide (22-30) mmol/L Glucose (74-99) mg/dL POC Glucose (mg/dL) 151 H (75-99) mg/dL ALT (4-49) U/L Alkaline Phosphatase (38-126) U/L Total Protein (6.3-8.2) g/dL Albumin (3.5-5.0) g/dL Microbiology - Last 24 Hours (Table) 03/20/21 14:15 Gram Stain - Preliminary Abdomen Wound Culture - Preliminary Diabetes panel 03/20/21 Range/Units 14:15 Sodium 132 L (137-145) mmol/L Potassium 5.0 (3.5-5.1) mmol/L Chloride 102 (98-107) mmol/L Carbon Dioxide 21 L (22-30) mmol/L BUN 17 (9-20) mg/dL Creatinine 0.78 (0.66-1.25) mg/dL Glucose 331 H (74-99) mg/dL Calcium 9.4 (8.4-10.2) mg/dL AST 30 (17-59) U/L ALT 55 H (4-49) U/L Alkaline Phosphatase 138 H (38-126) U/L Total Protein 6.0 L (6.3-8.2) g/dL Albumin 2.9 L (3.5-5.0) g/dL Calcium panel 03/20/21 Range/Units 14:15 Calcium 9.4 (8.4-10.2) mg/dL Albumin 2.9 L (3.5-5.0) g/dL Pituitary panel 03/20/21 Range/Units 14:15 Sodium 132 L (137-145) mmol/L Potassium 5.0 (3.5-5.1) mmol/L Chloride 102 (98-107) mmol/L Carbon Dioxide 21 L (22-30) mmol/L BUN 17 (9-20) mg/dL Creatinine 0.78 (0.66-1.25) mg/dL Glucose 331 H (74-99) mg/dL Calcium 9.4 (8.4-10.2) mg/dL Adrenal panel 03/20/21 Range/Units 14:15 Sodium 132 L (137-145) mmol/L Potassium 5.0 (3.5-5.1) mmol/L Chloride 102 (98-107) mmol/L Carbon Dioxide 21 L (22-30) mmol/L BUN 17 (9-20) mg/dL Creatinine 0.78 (0.66-1.25) mg/dL Glucose 331 H (74-99) mg/dL Calcium 9.4 (8.4-10.2) mg/dL Total Bilirubin 0.4 (0.2-1.3) mg/dL AST 30 (17-59) U/L ALT 55 H (4-49) U/L Alkaline Phosphatase 138 H (38-126) U/L Total Protein 6.0 L (6.3-8.2) g/dL Albumin 2.9 L (3.5-5.0) g/dL
[2021-03-21 11:46] LABS: African American GFR (CKD) 106.5 (60.0-200.0); Anion Gap 5.7 mmol/L (4.00-12.00); BUN/Creat Ratio 18.89 Ratio (12.00-20.00); Calcium 9.2 mg/dL (8.7-10.3); Carbon Dioxide 23.3 mmol/L (21.6-31.8); Non-African American GFR(CKD) 91.9 (60.0-200.0); Potassium 4.7 mmol/L (3.5-5.5)
[2021-03-21 12:10] LABS: Glucose,Whole Blood 203 mg/dL (75-99)
[2021-03-21] MEDS: NICOTINE 21MG/24HR PATCH TRANSDERM SCH (13:22)
[2021-03-21] MEDS: ALBUTEROL HFA INHALER INHALATION PRN (13:34)
[2021-03-21 15:54] LABS: Hemoglobin A1C 7.7 % (4.0-6.0)
[2021-03-21 16:50] LABS: Glucose,Whole Blood 196 mg/dL (75-99)
--- NOTE | 2021-03-21 19:25 | PN ---
PROGRESS NOTE DATE OF SERVICE: 03/21/2021 This 60-year-old gentleman was admitted with MRSA lesion and possible cellulitis and abscess on the right upper abdominal cavity. Has persistent drainage at this time. The patient is on IV antibiotics. Surgery has seen the patient, recommended continued treatment. CT scan showed large fluid collection along the inside of the right anterior abdominal wall measuring up to 6 cm thickness which was mostly clear on today's exam. No chest pain, no palpitation. PHYSICAL EXAMINATION: Alert and oriented x3. Pulse 79, blood pressure 108/60, respirations 13, temperature 97.4, pulse ox 94% on room air. HEENT: Conjunctivae normal. Oral mucosa moist. NECK: No jugular venous distention. No lymph node enlargement. CARDIOVASCULAR: S1, S2, muffled. No S3, no S4, RESPIRATORY: Diminished breath sounds at the bases. Scattered rhonchi. ABDOMEN: Soft, obese. Right abdominal abscess and some drainage. LABS: WBC 6.2, hemoglobin is 8.7, sodium 139, potassium 3.7. Cultures are noted. ASSESSMENT: 1. Right upper abdominal wall abscess and cellulitis with MRSA with failure of outpatient treatment. 2. History of abdominal wall hematoma previously. 3. Diabetes mellitus type 2, uncontrolled with hyperglycemia. 4. Hyponatremia. 5. Elevated ALT and alkaline phosphatase. 6. Anemia, normocytic anemia of chronic disease. 7. Obesity with body mass index of 38.4. 8. History of asthma/COPD. 9. History of DVT. 10.History of GERD. 11.Hypertension. 12.Hyperlipidemia. 13.History of sleep apnea. 14.History of open incisional hernia repair infection previously. 15.Previous history of MRSA. 16.History of colon cancer. 17.History of appendectomy. 18.History of hernia surgery. 19.History of DJD. 20.History of anxiety, depression. 21.History of nicotine dependence. 22.Obesity with body mass index of 38.6. 23.FULL CODE. RECOMMENDATION AND DISCUSSION: Continue current management and symptomatic treatment. Otherwise, at this time I recommend continue with antibiotics. Infectious disease evaluation. The patient is currently on IV vancomycin. Please note the patient was taking Bactrim previously prior to admission. Prognosis guarded. Further recommendations to follow. MMODL / IJN: [id number] /
[2021-03-21 20:38] LABS: Glucose,Whole Blood 233 mg/dL (75-99)
[2021-03-21] MEDS: traZODone HCL 50 MG TAB PO SCH (20:53)
[2021-03-21] MEDS: MULTIVITAMINS, THERA 1 EACH TAB PO SCH (20:53)
[2021-03-21] MEDS: PANTOPRAZOLE 40 MG TABLET PO SCH (20:53)
[2021-03-21] MEDS: ATORVASTATIN 80 MG TAB PO SCH (20:53)
[2021-03-21] MEDS: DULoxetine HCL 60 MG CAPSULE.DR PO SCH (20:53)
[2021-03-21] MEDS: GLIMEPIRIDE 1 MG TAB PO SCH (20:53)
[2021-03-22] MEDS: SODIUM CHLORIDE 0.9% 1,000 ML IV SCH ×4 (00:13→13:30)
[2021-03-22] MEDS: VANCOMYCIN 2,000 MG in SODIUM CHLORIDE 0.9% 500 ML 500 ML IVPB SCH ×2 (05:33→17:02)
--- NOTE | 2021-03-22 06:16 | P.CONS ---
History of Present Illness - Reason for Consult Consult date: 03/21/21 MRSA abd abscess Requesting physician: Mara Rayo - Chief Complaint abd pain and draiange x week - History of Present Illness History of present illness : Patient is 60-year male with a past medical history significant for colon cancer status post partial colectomy subsequently admitted to the hospital with infected hernia mesh that was subsequently removed patient started having a drainage from the right side of the abdominal wall this started about a week ago drainage has been mild to moderate and yellowish no foul-smelling. Patient also complaining of abdominal pain more of a dull aching intensity of 5-6 out of 10 had no radiation patient wound has been cultured in the outpatient setting and did grew MRSA for the patient was advised to go to the hospital on arrival to the hospital and the patient was afebrile patient did have a normal white count kidney function was normal blood culture has been obtained and culture has been repeated patient did have a CT of abdominal pelvis which did show a large fluid collection around the right anterior abdominal wall -6 cm in thickness patient was admitted to the hospital started on vancomycin infectious disease was consulted for further management of antibiotic therapy Review of system: CONSTITUTIONAL: Positive for weakness however denies fever. EYES: No complaint. ENT: No complaint. RESPIRATORY: No complaint. CARDIOVASCULAR: No complaint. GENITOURINARY: No complaint. GASTROINTESTINAL: As per history of present illness. MUSCULOSKELETAL: No complaint. INTEGUMENTARY: As per history of present illness. PSYCHOLOGIC: No complaint. ENDOCRINE: No complaint. NEUROLOGIC: No complaint. Past medical history : Reviewed, documented below Past surgical history : Reviewed, documented below Social history: Reviewed, documented below Medications: Reviewed, as documented below GENERAL DESCRIPTION: Middle-aged male lying in bed, no distress. No tachypnea or accessory muscle of respiration use. HEENT: Shows Pallor , no scleral icterus. Oral mucous membrane is dry. NECK: Trachea central, no thyromegaly. LUNGS: Unlabored breathing. Clear to auscultation anteriorly. No wheeze or crackle. HEART: S1, S2, regular rate and rhythm. ABDOMEN: Soft, mild distention with a small wound on the right lower abdominal wall which is draining purulent secretions EXTREMITIES: No edema of feet. SKIN: No rash, no masses palpable. NEUROLOGICAL: The patient is awake, alert, oriented x3, mood and affect normal. LABS AND RADIOLOGY: Reviewed results see below Assessment : Patient with infected intra-abdominal seroma with spontaneous drainage outpatient culture has been positive for MRSA likely pathogen, patient will need surgical drainage in order to completely cure of this infection for further surgery has already been consulted Plan: 1-await surgical drainage and deep cultures 2-vancomycin pharmacy to dose her with a target trough of 15 while watching her kidney function and Vanco trough closely. 3-dry protective dressing to the area We will follow on clinical condition and cultures to further adjust medication if needed Thank you for this consultation we will follow the patient along with you Past Medical History Past Medical History: Asthma, Cancer, COPD, Diabetes Mellitus, Deep Vein Thrombosis (DVT), GERD/Reflux, Hyperlipidemia, Hypertension, Sleep Apnea/CPAP/BIPAP Additional Past Medical History / Comment(s): Open incisional area from umbilical hernia sx, hx infected mesh. AWAITING TWYLA HIP REPLACEMENT. Hx DVT LEFT LEG, HX OF KIDNEY STONES. Hx anemia w/ transfusions, found tumors in colon w/ blockage, Colon cancer diagnosed 10/01/20; has open wound w/ wound vac. Uses cpap. Edema BLE. History of Any Multi-Drug Resistant Organisms: MRSA Year Discovered:: 03/15/21 MDRO Source:: Abdomen Past Surgical History: Appendectomy, Hernia Repair, Joint Replacement Additional Past Surgical History / Comment(s): Right knee REPLACED, hernia x2, ABD AORTOGRAM 02/24/17, Hernia repair w/ mesh removal 04/10/20. Hernia mesh removed 10/01/20. 3/4 Parathyroid removal surgery 01/18/2020. Tumor removal small intestine 10/01/20. hernia mesh removel 2020. tumor removal small intestine 2020. Past Anesthesia/Blood Transfusion Reactions: No Reported Reaction Past Psychological History: Anxiety, Depression Additional Psychological History / Comment(s): Pt has his adult nik living with him. He has a cane, walker. He drives. He is disabled. Smoking Status: Current some day smoker Past Alcohol Use History: None Reported Additional Past Alcohol Use History / Comment(s): Pt started smoking in 1973, and is a 1 ppd smoker. Past Drug Use History: Marijuana Additional Drug Use History / Comment(s): no marijuana in 1 month currently - Past Family History Mother History Unknown: Yes Family Medical History: Dementia, Diabetes Mellitus, Hyperlipidemia, Renal Disease Additional Family Medical History / Comment(s): dialysis Father Family Medical History: Coronary Artery Disease (CAD), Diabetes Mellitus Medications and Allergies Home Medications Medication Instructions Recorded Confirmed Type DULoxetine HCL [Cymbalta] 60 mg PO HS 10/08/17 03/20/21 History Glimepiride [Amaryl] 1 mg PO HS 11/20/18 03/20/21 History Omeprazole [PriLOSEC] 40 mg PO HS 11/20/18 03/20/21 History traZODone HCL 75 mg PO HS 11/20/18 03/20/21 History Atorvastatin [Lipitor] 80 mg PO HS 07/07/19 03/20/21 History Albuterol Sulfate [Proair Hfa] 2 puff INHALATION RT-Q6H PRN 04/30/20 03/20/21 History Gabapentin [Neurontin] 300 mg PO TID 09/29/20 03/20/21 History Tiotropium [place] [Spiriva 2 puff INHALATION RT-DAILY 09/29/20 03/20/21 History Respimat] Calcium Carbonate/Vitamin D3 2 tab PO DAILY 11/14/20 03/20/21 History [Calcium 600-Vit D3 10 mcg (400 Iu)] Ferrous Sulfate [Iron (65 MG 325 mg PO BID 11/14/20 03/20/21 History Elemental)] Multivitamins, Thera [Multivitamin 1 tab PO HS 11/14/20 03/20/21 History (formulary)] Aspirin EC [Ecotrin Low Dose] 81 mg PO DAILY 02/20/21 03/20/21 History Sulfamethox-Tmp 800-160Mg [Bactrim 1 tab PO Q12HR 03/20/21 03/20/21 History DS 800-160 mg] Allergies Allergy/AdvReac Type Severity Reaction Status Date / Time No Known Allergies Allergy Verified 03/20/21 14:45 Physical Exam Vitals: Vital Signs Temp Pulse Pulse Resp BP BP Pulse Ox 03/21/21 06:48 75 102/66 94 L 03/21/21 02:33 98.1 F 72 18 127/66 97 03/20/21 20:00 20 03/20/21 17:00 97.6 F 75 20 108/60 97 03/20/21 12:35 98.5 F 101 H 20 116/55 97 Intake and Output 03/20/21 03/21/21 03/21/21 22:59 06:59 14:59 Other: Voiding Method Toilet # Voids 1 Weight 124.738 kg Results CBC & Chem 7: 03/21/21 06:59 03/21/21 06:59 Labs: Abnormal Lab Results - Last 24 Hours (Table) 03/20/21 03/20/21 03/20/21 Range/Units 14:15 14:15 16:35 RBC 3.31 L (4.30-5.90) m/uL Hgb 9.8 L (13.0-17.5) gm/dL Hct 29.2 L (39.0-53.0) % RDW 16.2 H (11.5-15.5) % Plt Count 496 H (150-450) k/uL Sodium 132 L (137-145) mmol/L Carbon Dioxide 21 L (22-30) mmol/L Glucose 331 H (74-99) mg/dL POC Glucose (mg/dL) 226 H (75-99) mg/dL ALT 55 H (4-49) U/L Alkaline Phosphatase 138 H (38-126) U/L Total Protein 6.0 L (6.3-8.2) g/dL Albumin 2.9 L (3.5-5.0) g/dL 03/20/21 03/21/21 03/21/21 Range/Units 21:56 05:39 07:36 RBC (4.30-5.90) m/uL Hgb (13.0-17.5) gm/dL Hct (39.0-53.0) % RDW (11.5-15.5) % Plt Count (150-450) k/uL Sodium (137-145) mmol/L Carbon Dioxide (22-30) mmol/L Glucose (74-99) mg/dL POC Glucose (mg/dL) 170 H 155 H 151 H (75-99) mg/dL ALT (4-49) U/L Alkaline Phosphatase (38-126) U/L Total Protein (6.3-8.2) g/dL Albumin (3.5-5.0) g/dL Microbiology - Last 24 Hours (Table) 03/20/21 14:15 Gram Stain - Preliminary Abdomen Wound Culture - Preliminary
[2021-03-22 07:13] LABS: Glucose,Whole Blood 180 mg/dL (75-99)
[2021-03-22] MEDS: ASPIRIN 81 MG PO SCH (07:46)
[2021-03-22] MEDS: CALCIUM CARB-VIT D 500 MG-5 MCG TAB PO SCH (07:46)
[2021-03-22] MEDS: GABAPENTIN 300 MG CAP PO SCH ×3 (07:46→21:57)
[2021-03-22] MEDS: FERROUS SULFATE 325 MG TAB PO SCH ×2 (07:46→21:56)
[2021-03-22] MEDS: NICOTINE 21MG/24HR PATCH TRANSDERM SCH (07:53)
[2021-03-22] MEDS: INSULIN ASPART (NovoLOG) 100 UNIT/ML VIAL SQ SCH ×4 (07:54→21:57)
[2021-03-22] MEDS: TIOTROPIUM 2.5 MCG INHALER INHALATION SCH (08:50)
[2021-03-22] MEDS: ALBUTEROL HFA INHALER INHALATION PRN ×2 (08:50→21:36)
--- NOTE | 2021-03-22 11:24 | P.CONS ---
History of Present Illness - Reason for Consult Consult date: 03/22/21 wound care - History of Present Illness This is a 60-year-old patient with a known history of DVT anticoagulated with Coumadin, diabetes, hypertension, colon cancer with post bowel resection and September 2019. He is known to the wound care center who was recently discharged for a healed ulceration to the midline abdomen. Patient presented to the hospital with drainage from incisional site on the right side of his abdominal wall. The site was cultured outpatient and was found to have MRSA. His PCP instructed him to come to the hospital for IV antibiotics. A CT of the abdomen and pelvis showed a large fluid collection along the inside of the right anterior abdominal wall which measured up to 6 cm in thickness. Patient has 2 open ulcerations to the right lower quadrant. Measuring approximately 0.4 x 0.7 width and depth unknown. Patient has a large amount of serosanguineous purulent drainage from the site. The ulcerations have granulation within the wound bed. Review Of Systems: Constitutional: No fever, no chills, no night sweats. No weight change. No weakness, fatigue or lethargy. No daytime sleepiness. Integumentary:reports wounds, no lesions. No rash or pruritus. No unusual bruising. No change in hair or nails. Physical exam: General Appearance: Alert, cooperative, no distress, appears stated age. Skin: See HPI all other Skin color, texture, tugor normal, no rashes or lesions. Neurologic: Alert oriented x3 Assessment: 1. Nonhealing ulceration with fat layer exposure to the abdomen. Plan: 1. Apply absorptive silver rope, saline moistened gauze, dry gauze, ABDs. Changed Friday. Patient returned to the wound care center next week 03/29 at 1245. Thank you for the consultation any questions please contact the wound care center DNP note has been reviewed and discussed with Dr. Goff and the impression and plan of care has been directed as dictated. Past Medical History Past Medical History: Asthma, Cancer, COPD, Diabetes Mellitus, Deep Vein Thrombosis (DVT), GERD/Reflux, Hyperlipidemia, Hypertension, Sleep Ap gerardo/CPAP/BIPAP Additional Past Medical History / Comment(s): Open incisional area from umbilical hernia sx, hx infected mesh. AWAITING TWYLA HIP REPLACEMENT. Hx DVT LEFT LEG, HX OF KIDNEY STONES. Hx anemia w/ transfusions, found tumors in colon w/ blockage, Colon cancer diagnosed 10/01/20; has open wound w/ wound vac. Uses cpap. Edema BLE. History of Any Multi-Drug Resistant Organisms: MRSA Year Discovered:: 03/15/21 MDRO Source:: Abdomen Past Surgical History: Appendectomy, Hernia Repair, Joint Replacement Additional Past Surgical History / Comment(s): Right knee REPLACED, hernia x2, ABD AORTOGRAM 02/24/17, Hernia repair w/ mesh removal 04/10/20. Hernia mesh removed 10/01/20. 3/4 Parathyroid removal surgery 01/18/2020. Tumor removal small int estine 10/01/20. hernia mesh removel 2020. tumor removal small intestine 2020. Past Anesthesia/Blood Transfusion Reactions: No Reported Reaction Past Psychological History: Anxiety, Depression Additional Psychological History / Comment(s): Pt has his adult nik living with him. He has a cane, walker. He drives. He is disabled. Smoking Status: Current some day smoker Past Alcohol Use History: None Reported Additional Past Alcohol Use History / Comment(s): Pt started smoking in 1973, and is a 1 ppd smoker. Past Drug Use History: Marijuana Additional Drug Use History / Comment(s): no marijuana in 1 month currently - Past Family History Mother History Unknown: Yes Family Medical History: Dementia, Diabetes Mellitus, Hyperlipidemia, Renal Disease Additional Family Medical History / Comment(s): dialysis Father Family Medical History: Coronary Artery Disease (CAD), Diabetes Mellitus Medications and Allergies Home Medications Medication Instructions Recorded Confirmed Type DULoxetine HCL [Cymbalta] 60 mg PO HS 10/08/17 03/20/21 History Glimepiride [Amaryl] 1 mg PO HS 11/20/18 03/20/21 History Omeprazole [PriLOSEC] 40 mg PO HS 11/20/18 03/20/21 History traZODone HCL 75 mg PO HS 11/20/18 03/20/21 History Atorvastatin [Lipitor] 80 mg PO HS 07/07/19 03/20/21 History Albuterol Sulfate [Proair Hfa] 2 puff INHALATION RT-Q6H PRN 04/30/20 03/20/21 History Gabapentin [Neurontin] 300 mg PO TID 09/29/20 03/20/21 History Tiotropium [place] [Spiriva 2 puff INHALATION RT-DAILY 09/29/20 03/20/21 History Respimat] Calcium Carbonate/Vitamin D3 2 tab PO DAILY 11/14/20 03/20/21 History [Calcium 600-Vit D3 10 mcg (400 Iu)] Ferrous Sulfate [Iron (65 MG 325 mg PO BID 11/14/20 03/20/21 History Elemental)] Multivitamins, Thera [Multivitamin 1 tab PO HS 11/14/20 03/20/21 History (formulary)] Aspirin EC [Ecotrin Low Dose] 81 mg PO DAILY 02/20/21 03/20/21 History Sulfamethox-Tmp 800-160Mg [Bactrim 1 tab PO Q12HR 03/20/21 03/20/21 History DS 800-160 mg] Allergies Allergy/AdvReac Type Severity Reaction Status Date / Time No Known Allergies Allergy Verified 03/20/21 14:45 Physical Exam Vitals: Vital Signs Temp Pulse Resp BP BP Pulse Ox 03/22/21 07:34 97.7 F 74 17 99/62 96 03/22/21 02:16 97.5 F L 81 16 114/66 94 L 03/21/21 19:16 98.3 F 75 18 101/61 96 03/21/21 14:00 97.7 F 72 14 119/71 94 L Intake and Output 03/21/21 03/22/21 03/22/21 22:59 06:59 14:59 Output Total 400 Balance -400 Output: Urine 400 Other: Voiding Method Toilet Urinal # Voids 1 5 Results CBC & Chem 7: 03/21/21 06:59 03/21/21 06:59 Labs: Abnormal Lab Results - Last 24 Hours (Table) 03/21/21 03/21/21 03/21/21 Range/Units 06:59 06:59 12:08 Chloride 110 H (96-109) mmol/L Glucose 142 H (70-110) mg/dL POC Glucose (mg/dL) 203 H (75-99) mg/dL Hemoglobin A1c 7.7 H (4.0-6.0) % 03/21/21 03/21/21 03/22/21 Range/Units 16:47 20:37 07:10 Chloride (96-109) mmol/L Glucose (70-110) mg/dL POC Glucose (mg/dL) 196 H 233 H 180 H (75-99) mg/dL Hemoglobin A1c (4.0-6.0) % Microbiology - Last 24 Hours (Table) 03/20/21 15:04 Blood Culture - Preliminary Blood No Growth after 24 hours 03/20/21 14:15 Blood Culture - Preliminary Blood No Growth after 24 hours 03/20/21 14:15 Gram Stain - Preliminary Abdomen Wound Culture - Preliminary Assessment and Plan (1) Non-pressure chronic ulcer of skin of other sites with muscle involvement without evidence of necrosis Current Visit: No Status: Acute Code(s): L98.495 - NON-PRS CHR ULC SKIN/ OTH SITE WITH MSL INVL W/O EVD OF NECR SNOMED Code(s): 37673745 (2) Diabetes with skin ulcer Current Visit: No Status: Acute Code(s): E11.622 - TYPE 2 DIABETES MELLITUS WITH OTHER SKIN ULCER; L98.499 - NON-PRESSURE CHRONIC ULCER OF SKIN OF SITES W UNSP SEVERITY SNOMED Code(s): 36021066
[2021-03-22 11:43] LABS: Glucose,Whole Blood 222 mg/dL (75-99)
--- NOTE | 2021-03-22 14:04 | P.PN ---
Subjective Progress Note Date: 03/22/21 CHIEF COMPLAINT: Abdominal wound infection HISTORY OF PRESENT ILLNESS: Patient being followed for his abdominal wound infection. It is still draining. It is clearish yellow in color plate. Patient denies any pain. Denies any nausea or vomiting. He's afebrile. WBC is 6.21. Patient seen and examined by wound care nurse. Patient seen and examined with Dr. chang PHYSICAL EXAM: VITAL SIGNS: Reviewed. GENERAL: Well-developed in no acute distress. HEENT: No sclera icterus. Extraocular movements grossly intact. Moist buccal mucosa. Head is atraumatic, normocephalic. ABDOMEN: Soft. Nondistended. Nontender. Right-sided abdomen are 2 small holes about a week 3-5 mm in size. Each hole is draining a yellowish to purulent discharge. There is no erythema noted on the skin. Minimal tenderness with palpation. There is a small area of firmness that is palpable. NEUROLOGIC: Alert and oriented. Cranial nerves II through XII grossly intact. ASSESSMENT: 1. Abdominal wound infection with possible seroma. Area is actively draining PLAN: -No surgical intervention planned -We'll continue to monitor -Continue antibiotics per ID -Continue local wound care Physician Urology Teacher note has been reviewed by physician. Signing provider agrees with the documented findings, assessment, and plan of care. Objective - Vital Signs Vital signs: Vital Signs Temp 98.0 F 03/22/21 13:56 Pulse 72 03/22/21 13:56 Resp 17 03/22/21 13:56 BP 162/65 03/22/21 13:56 Pulse Ox 98 03/22/21 13:56 Intake & Output 03/21/21 03/22/21 03/22/21 18:59 06:59 18:59 Output Total 400 310 Balance -400 -310 Output: Urine 400 310 Other: Voiding Method Toilet Toilet Urinal Urinal # Voids 5 - Labs CBC & Chem 7: 03/21/21 06:59 03/21/21 06:59 Labs: Abnormal Lab Results - Last 24 Hours (Table) 03/21/21 03/21/21 03/21/21 Range/Units 06:59 16:47 20:37 POC Glucose (mg/dL) 196 H 233 H (75-99) mg/dL Hemoglobin A1c 7.7 H (4.0-6.0) % 03/22/21 03/22/21 Range/Units 07:10 11:42 POC Glucose (mg/dL) 180 H 222 H (75-99) mg/dL Hemoglobin A1c (4.0-6.0) % Microbiology - Last 24 Hours (Table) 03/20/21 15:04 Blood Culture - Preliminary Blood No Growth after 24 hours 03/20/21 14:15 Blood Culture - Preliminary Blood No Growth after 24 hours
--- NOTE | 2021-03-22 14:08 | PN ---
PROGRESS NOTE DATE OF SERVICE: 03/22/2021 REASON FOR FOLLOWUP: Intraabdominal abscess. INTERVAL HISTORY: Patient is afebrile, patient is breathing comfortably. No chest pain, shortness of breath, cough, abdominal pain slightly decreased. Did have drainage from the right lower abdominal wall area. No diarrhea. PHYSICAL EXAMINATION: Blood pressure 99/52 with a pulse of 74, temperature is 97.9, he is sating 93% on room air. General description is a middle-aged male lying in bed in no distress. Respiratory system: Unlabored breathing, clear to auscultation anteriorly. Heart S1, S2. Regular rate and rhythm. Abdomen soft, no tenderness. Abdominal wall is currently dressed. No drainage on the dressing. LABS: No new labs have been obtained today. Blood culture negative so far. DIAGNOSTIC IMPRESSION AND PLAN: Patient with right anterior abdominal wall abscess. Culture with MRSA waiting for surgical drainage, continue with vancomycin and continue supportive care. MMODL / IJN: [id number] /
[2021-03-22] MEDS ORDERED: VANCOMYCIN TROUGH DUE 1 EACH MISC MISCELLANE ONE (16:00)
--- NOTE | 2021-03-22 16:12 | PN ---
PROGRESS NOTE DATE OF SERVICE: 03/22/2021 This 60-year-old gentleman admitted with MRSA abscess had drainage from the right upper abdomen. There is some minimal . Infectious Disease as well as Surgery are following the patient closely. No chest pain. No palpitations. No fever. PHYSICAL EXAMINATION: Alert and oriented x3. Pulse 72, blood pressure 162/64, respirations 17, temperature 98 degrees, pulse ox 98% on room air. HEENT: Conjunctivae normal. NECK: No jugular venous distention. CARDIOVASCULAR: S1, S2 muffled. RESPIRATION: Breath sounds diminished at the bases. No rhonchi. No crackles. ABDOMEN: Soft, obese. Right upper abdominal wound and draining also present. LABS: Accu-Cheks 218, 222. WBC 6.21, hemoglobin 8.7, sodium 137, potassium 4.7. ASSESSMENT: 1. Right upper quadrant abdominal wall abscess with cellulitis and MRSA with failure of outpatient treatment. 2. History of abdominal wall hematoma previously, recently. 3. Diabetes mellitus, type 2, uncontrolled with hyperglycemia. 4. Hyponatremia. 5. Elevated ALT, alkaline phosphatase. 6. Anemia, normocytic anemia of chronic disease. 7. Obesity with body mass index of 38.6. 8. History of asthma, chronic obstructive pulmonary disease. 9. History of deep vein thrombosis. 10.History of gastroesophageal reflux disease. 11.Hypertension. 12.Hyperlipidemia. 13.History of sleep apnea. 14.History of open incisional hernia repair with infection previously elsewhere. 15.Previous history of MRSA. 16.History of colon cancer. 17.History of appendectomy. 18.History of hernia surgery. 19.History of degenerative joint disease. 20.History of anxiety, depression. 21.History of nicotine dependence. 22.FULL CODE. RECOMMENDATIONS AND DISCUSSION: I recommend to continue current medications, continue with symptomatic treatment. Continue with the IV antibiotics. Closely follow with Infectious Disease and Surgery. Discussed with Surgery. Prognosis guarded. Further recommendations to follow. MMODL / IJN: [id number] / MTDD
[2021-03-22 16:39] LABS: Glucose,Whole Blood 268 mg/dL (75-99)
[2021-03-22] MEDS: HYDROcodone/APAP 5-325MG 1 EACH TAB PO PRN (17:44)
[2021-03-22 20:44] LABS: Glucose,Whole Blood 296 mg/dL (75-99)
[2021-03-22] MEDS: traZODone HCL 50 MG TAB PO SCH (21:56)
[2021-03-22] MEDS: ATORVASTATIN 80 MG TAB PO SCH (21:56)
[2021-03-22] MEDS: MULTIVITAMINS, THERA 1 EACH TAB PO SCH (21:56)
[2021-03-22] MEDS: PANTOPRAZOLE 40 MG TABLET PO SCH (21:57)
[2021-03-22] MEDS: DULoxetine HCL 60 MG CAPSULE.DR PO SCH (21:57)
[2021-03-22] MEDS: GLIMEPIRIDE 1 MG TAB PO SCH (22:27)
[2021-03-23] MEDS: HYDROcodone/APAP 5-325MG 1 EACH TAB PO PRN ×3 (01:14→22:14)
[2021-03-23] MEDS: SODIUM CHLORIDE 0.9% 1,000 ML IV SCH ×5 (02:55→11:51)
[2021-03-23] MEDS: VANCOMYCIN 2,000 MG in SODIUM CHLORIDE 0.9% 500 ML 500 ML IVPB SCH ×2 (06:02→16:34)
[2021-03-23 06:10] LABS: African American GFR (CKD) >90 (>60 ml/min/1.73 sqM); Non-African American GFR(CKD) >90 (>60 ml/min/1.73 sqM)
[2021-03-23 06:59] LABS: Glucose,Whole Blood 203 mg/dL (75-99)
[2021-03-23] MEDS: FERROUS SULFATE 325 MG TAB PO SCH ×2 (08:06→20:33)
[2021-03-23] MEDS: ASPIRIN 81 MG PO SCH (08:06)
[2021-03-23] MEDS: CALCIUM CARB-VIT D 500 MG-5 MCG TAB PO SCH (08:06)
[2021-03-23] MEDS: GABAPENTIN 300 MG CAP PO SCH ×3 (08:06→20:32)
[2021-03-23] MEDS: NICOTINE 21MG/24HR PATCH TRANSDERM SCH (08:07)
[2021-03-23] MEDS: INSULIN ASPART (NovoLOG) 100 UNIT/ML VIAL SQ SCH ×4 (08:07→20:33)
[2021-03-23] MEDS: TIOTROPIUM 2.5 MCG INHALER INHALATION SCH (08:26)
[2021-03-23] MEDS: ALBUTEROL HFA INHALER INHALATION PRN ×2 (08:26→20:44)
[2021-03-23 11:34] LABS: Glucose,Whole Blood 264 mg/dL (75-99)
--- NOTE | 2021-03-23 13:42 | P.PN ---
Subjective Progress Note Date: 03/23/21 CHIEF COMPLAINT: Abdominal wound infection HISTORY OF PRESENT ILLNESS: Patient being followed for his abdominal wound infection. Patient's abdominal wound is still draining a yellowish purulent discharge. Area of induration is becoming smaller. Patient denies any pain. Denies any nausea or vomiting. He's afebrile. WBC is 6.21. Glucose 264 Patient seen and examined by wound care nurse. Patient seen and examined with Dr. chang PHYSICAL EXAM: VITAL SIGNS: Reviewed. GENERAL: Well-developed in no acute distress. HEENT: No sclera icterus. Extraocular movements grossly intact. Moist buccal mucosa. Head is atraumatic, normocephalic. ABDOMEN: Soft. Nondistended. Nontender. Right-sided abdomen are 2 small holes about a week 3-5 mm in size. Each hole is draining a yellowish to purulent discharge. There is no erythema noted on the skin. Minimal tenderness with palpation. There is a small area of induration that is decreasing in size NEUROLOGIC: Alert and oriented. Cranial nerves II through XII grossly intact. ASSESSMENT: 1. Abdominal wound infection with possible seroma. Area is actively draining PLAN: -No surgical intervention planned -Continue antibiotics per ID -Continue local wound care Physician Core Oven Tender note has been reviewed by physician. Signing provider agrees with the documented findings, assessment, and plan of care. Objective - Vital Signs Vital signs: Vital Signs Temp 97.8 F 03/23/21 07:57 Pulse 64 03/23/21 07:57 Resp 16 03/23/21 07:57 BP 120/71 03/23/21 07:57 Pulse Ox 97 03/23/21 07:57 Intake & Output 03/22/21 03/23/21 03/23/21 18:59 06:59 18:59 Output Total 1310 600 Balance -1310 -600 Output: Urine 1310 600 Other: Voiding Method Toilet Toilet Urinal Urinal - Labs CBC & Chem 7: 03/21/21 06:59 03/23/21 05:34 Labs: Abnormal Lab Results - Last 24 Hours (Table) 03/22/21 03/22/21 03/23/21 Range/Units 16:38 20:42 06:57 POC Glucose (mg/dL) 268 H 296 H 203 H (75-99) mg/dL 03/23/21 Range/Units 11:29 POC Glucose (mg/dL) 264 H (75-99) mg/dL Microbiology - Last 24 Hours (Table) 03/20/21 15:04 Blood Culture - Preliminary Blood No Growth after 48 hours 03/20/21 14:15 Blood Culture - Preliminary Blood No Growth after 48 hours 03/20/21 14:15 Gram Stain - Final Abdomen Wound Culture - Final
[2021-03-23] MEDS ORDERED: INSULIN DETEMIR (LEVEMIR) 100 UNIT/ML SYR SQ SCH (14:23)
--- NOTE | 2021-03-23 16:19 | PN ---
PROGRESS NOTE DATE OF SERVICE: 03/23/2021. This 60-year-old gentleman was admitted with right upper quadrant abdominal abscess, had MRSA grown from the culture. No chest pain. No palpitations. The patient has some induration. PHYSICAL EXAMINATION: Alert and oriented x3. Pulse 64, blood pressure 120/74, respirations 16, temperature 97.8, pulse ox 97% on room air. HEENT: Conjunctivae normal. Oral mucosa moist. NECK: No jugular venous distention. No lymph node enlargement. CARDIOVASCULAR: S1, S2, muffled. No S3, no S4, RESPIRATORY: Diminished breath sounds at the bases. Bilateral scattered rhonchi and crackles. ABDOMEN: Soft, obese. Abdominal wall abscess. LABS: Accu-Cheks 264. Hemoglobin is 8.7. ASSESSMENT: 1. Right upper quadrant abdominal wall abscess and cellulitis and MRSA with failure of outpatient treatment. 2. History of abdominal wall hematoma previously recently. 3. Diabetes type 2 uncontrolled with hyperglycemia. 4. Hyponatremia. 5. Elevated ALT, alkaline phosphatase. 6. Anemia, normocytic anemia of chronic disease. 7. Obesity with body mass index of 38.6. 8. History of asthma, chronic obstructive pulmonary disease. 9. History of deep vein thrombosis. 10.History of gastroesophageal reflux disease. 11.Hypertension. 12.Hyperlipidemia. 13.History of sleep apnea. 14.History of open incisional hernia repair with infection previously elsewhere. 15.Previous history of MRSA. 16.History of colon cancer. 17.History of appendectomy. 18.History of hernia surgery. 19.History of DJD. 20.Anxiety, depression. 21.History of nicotine dependence. 22.FULL CODE. RECOMMENDATION AND DISCUSSION: Continue current medication, continue to monitor, continue symptomatic treatment. Otherwise at this time I would also recommend continued antibiotics, surgical evaluation. Patient is on vancomycin. Will start a small dose of subcu insulin at night for better diabetic control. Further recommendations to follow. MMODL / IJN: [id number] /
[2021-03-23 16:27] LABS: Glucose,Whole Blood 363 mg/dL (75-99)
--- NOTE | 2021-03-23 17:52 | PN ---
PROGRESS NOTE DATE OF SERVICE: 03/23/2021 REASON FOR FOLLOWUP: Abdominal wall abscesses and MRSA. INTERVAL HISTORY: Patient is afebrile. The patient is breathing comfortably. Denies having any chest pain, shortness of breath or cough. Abdominal pain is currently controlled. Still has some minimal drainage and denies having any diarrhea. PHYSICAL EXAMINATION: Blood pressure is 120/71 with a pulse of 84, temp is 97.8 he is 97% on room air. General description is a middle-aged male lying in bed in no distress. Respiratory system: Unlabored breathing, clear to auscultation anteriorly. Heart S1, S2. Regular rate and rhythm. Abdomen: Soft. No tenderness. Minimal drainage on the dressing. Extremities: No edema of the feet. LABS: Creatinine 0.84. DIAGNOSTIC IMPRESSION AND PLAN: Patient with abdominal wall abscess and would benefit from a surgical drainage. Surgical team is on the case. Continue vancomycin as antibiotic alone can need lead to treatment failure. Continue supportive care. MMODL / IJN: [id number] /
[2021-03-23 20:05] LABS: Glucose,Whole Blood 279 mg/dL (75-99)
[2021-03-23] MEDS: DULoxetine HCL 60 MG CAPSULE.DR PO SCH (20:32)
[2021-03-23] MEDS: ATORVASTATIN 80 MG TAB PO SCH (20:32)
[2021-03-23] MEDS: traZODone HCL 50 MG TAB PO SCH (20:32)
[2021-03-23] MEDS: GLIMEPIRIDE 1 MG TAB PO SCH (20:32)
[2021-03-23] MEDS: PANTOPRAZOLE 40 MG TABLET PO SCH (20:32)
[2021-03-23] MEDS: MULTIVITAMINS, THERA 1 EACH TAB PO SCH (20:33)
[2021-03-24] MEDS: VANCOMYCIN 2,000 MG in SODIUM CHLORIDE 0.9% 500 ML 500 ML IVPB SCH ×2 (06:00→17:34)
[2021-03-24 06:55] LABS: Glucose,Whole Blood 118 mg/dL (75-99)
[2021-03-24] MEDS: INSULIN ASPART (NovoLOG) 100 UNIT/ML VIAL SQ SCH ×4 (06:58→21:24)
[2021-03-24] MEDS: ASPIRIN 81 MG PO SCH (08:11)
[2021-03-24] MEDS: NICOTINE 21MG/24HR PATCH TRANSDERM SCH (08:11)
[2021-03-24] MEDS: CALCIUM CARB-VIT D 500 MG-5 MCG TAB PO SCH (08:11)
[2021-03-24] MEDS: FERROUS SULFATE 325 MG TAB PO SCH ×2 (08:11→21:27)
[2021-03-24] MEDS: GABAPENTIN 300 MG CAP PO SCH ×3 (08:11→21:27)
[2021-03-24] MEDS: TIOTROPIUM 2.5 MCG INHALER INHALATION SCH (08:48)
[2021-03-24] MEDS: ALBUTEROL HFA INHALER INHALATION PRN ×2 (08:48→14:02)
[2021-03-24 11:30] LABS: Glucose,Whole Blood 242 mg/dL (75-99)
--- NOTE | 2021-03-24 14:06 | P.PN ---
Subjective Progress Note Date: 03/24/21 CHIEF COMPLAINT: Abdominal pain HISTORY OF PRESENT ILLNESS: The patient is a 60-year-old male history of gastrointestinal cancer, small bowel obstruction with emergent exploratory laparotomy and incisional hernia repair with mesh placement, 6 months ago September 2020 presents with recurrent abdominal wall fluid collections for seroma. Patient is also being followed by infectious disease. He reports troubles with his dressing changes yesterday as he wound was not cleaned prior to being re- packed. ROS: No reports of nausea and vomiting. No fevers or chills. No new chest pain. No productive sputum PHYSICAL EXAM: VITAL SIGNS: Reviewed CONSTITUTIONAL: Well developed and in no acute distress. EYES: Conjuctivae without sclera icterus. Extraocular movements grossly intact. HEAD, EARS, NOSE, THROAT: Moist buccal mucosa. Head is atraumatic, normocephalic. Hears conversational speech. No nasal drainage. NECK: No gross thyroidomegaly. No jugular venous distention. RESPIRATORY: Non-labored respirations and equal bilateral excursions. CARDIOVASCULAR: Palpable 2+ radial pulses. ABDOMEN: Abdominal wound seroma MUSCULOSKELETAL: No gross deformity of the lower extremities noted. No clubbing. No cyanosis. SKIN: Good skin turgor. Well perfused. NEUROLOGIC: Cranial nerves II through XII grossly intact. No focal or lateralizing signs. PSYCH: Appropriate affect. Alert and oriented to person, place and time. CLINICAL LABS: White blood cell count normal at 6.1 on 03/22/2021 ASSESSMENT: 1. Complicated abdominal wall wound with abdominal wall seroma PLAN: 1. Continue IV antibiotics 2. Wound care per wound management. 3. Patient is looking into a wound vac. Objective - Vital Signs Vital signs: Vital Signs Temp 97.6 F 03/24/21 06:20 Pulse 67 03/24/21 06:20 Resp 16 03/24/21 06:20 BP 109/61 03/24/21 06:20 Pulse Ox 97 03/24/21 06:20 Intake & Output 03/23/21 03/24/21 03/24/21 18:59 06:59 18:59 Intake Total 1230 240 Output Total 350 375 Balance -350 855 240 Intake: Intake, IV Titration 750 Amount Sodium Chloride 0.9% 1, 250 000 ml @ 210 mls/hr IV . Q4H46M [facility] Rx#:[id number] Vancomycin 2,000 mg In 500 Sodium Chloride 0.9% 500 ml 500 ml @ 167 mls/hr IVPB Q12H [facility] Rx#: [id number] Oral 480 240 Output: Urine 350 Stool 375 Other: Voiding Method Toilet Toilet Urinal Urinal # Voids 1 - Labs CBC & Chem 7: 03/21/21 06:59 03/23/21 05:34 Labs: Abnormal Lab Results - Last 24 Hours (Table) 03/23/21 03/23/21 03/24/21 Range/Units 16:15 20:03 06:54 POC Glucose (mg/dL) 363 H 279 H 118 H (75-99) mg/dL 03/24/21 Range/Units 11:28 POC Glucose (mg/dL) 242 H (75-99) mg/dL Microbiology - Last 24 Hours (Table) 03/20/21 15:04 Blood Culture - Preliminary Blood No Growth after 72 hours 03/20/21 14:15 Blood Culture - Preliminary Blood No Growth after 72 hours Assessment and Plan (1) Abdominal wall seroma Current Visit: Yes Status: Acute Code(s): S30.1XXA - CONTUSION OF ABDOMINAL WALL, INITIAL ENCOUNTER SNOMED Code(s): 522126352 (2) Positive result for methicillin resistant Staphylococcus aureus (MRSA) screening Current Visit: Yes Status: Acute Code(s): Z22.322 - CARRIER OR SUSPECTED CARRIER OF METHICILLIN RESIS STAPH SNOMED Code(s): 301722787
[2021-03-24] MEDS ORDERED: INSULIN DETEMIR (LEVEMIR) 100 UNIT/ML SYR SQ STA (14:12)
[2021-03-24] MEDS: HYDROcodone/APAP 5-325MG 1 EACH TAB PO PRN ×2 (15:05→21:26)
[2021-03-24] MEDS ORDERED: VANCOMYCIN TROUGH DUE 1 EACH MISC MISCELLANE ONE (16:00)
[2021-03-24 16:33] LABS: Glucose,Whole Blood 258 mg/dL (75-99)
[2021-03-24 17:27] LABS: African American GFR (CKD) >90 (>60 ml/min/1.73 sqM); Non-African American GFR(CKD) 84 (>60 ml/min/1.73 sqM)
--- NOTE | 2021-03-24 19:04 | PN ---
PROGRESS NOTE DATE OF SERVICE: 03/24/2021 REASON FOR FOLLOW UP: Abdominal wall abscess, MRSA. INTERVAL HISTORY: Patient is afebrile. Overall pain and discomfort to the right side of the abdomen has slightly decreased. Still has some drainage. No chest pain, shortness of breath or cough. No vomiting or diarrhea. PHYSICAL EXAMINATION: Blood pressure 135/93 with a pulse of 87, temperature 98.8. He is 94% on room air. General description is a middle-aged male lying in bed in no distress. Respiratory system: Unlabored breathing, clear to auscultation anteriorly. Heart S1, S2. Regular rate and rhythm. Abdomen soft, no tenderness. LABS: No new labs have been obtained today. Blood culture negative. DIAGNOSTIC IMPRESSION AND PLAN: Patient with MRSA positive cultures from abdominal wound with underlying abscess cavity. The patient is currently with vancomycin. Surgery recommended against any drainage as it is draining by itself. Will repeat a CT scan on Friday if it is decreasing. Otherwise, may need surgical drainage. Discussed with the admitting physician. Continue vancomycin while monitoring his kidney function closely. Continue supportive care. MMODL / IJN: [id number] /
--- NOTE | 2021-03-24 20:16 | PN ---
PROGRESS NOTE DATE OF SERVICE: 03/24/2021 This 60-year-old gentleman who was admitted with right upper quadrant abdominal pain also had evidence of MRSA infection. Patient has a small indurated area also. Some persistent drainage. General Surgery is following the patient as well as Infectious Disease. The most recent final cultures are pending at this time. PHYSICAL EXAMINATION: Alert and oriented x3. Pulse is 87, blood pressure 135/90, respirations 16, temperature 98.8, pulse ox 94% on room air. HEENT: Conjunctivae normal. Oral mucosa moist. NECK: No jugular venous distention. No lymph node enlargement. CARDIOVASCULAR: S1, S2, muffled. No S3, no S4, RESPIRATORY: Diminished breath sounds at the bases. No rhonchi, no crackles. ABDOMEN: Soft. Mild diffuse drainage also present in the right upper quadrant and indurated area present. LABS: Accu-Cheks 258. ASSESSMENT: 1. Right upper quadrant abdominal wall abscess and cellulitis and MRSA with failure of outpatient treatment. 2. History of abdominal wall recently. 3. Diabetes type 2, uncontrolled with hyperglycemia. 4. Hyponatremia. 5. Elevated ALT and alkaline phosphatase. 6. Anemia, normocytic anemia of chronic disease. 7. Obesity with body mass index of 38.6. 8. History of asthma, chronic obstructive pulmonary disease. 9. History of deep vein thrombosis. 10.History of gastroesophageal reflux disease. 11.Hypertension. 12.Hyperlipidemia. 13.History of sleep apnea. 14.History of open incisional hernia repair with infection previously. 15.History of MRSA previously. 16.History of colon cancer. 17.History of appendectomy. 18.History of hernia surgery. 19.History of DJD. 20.History of depression. 21.History of nicotine dependence. 22.FULL CODE. RECOMMENDATIONS AND DISCUSSION: Continue current management, continue symptomatic. Continue the antibiotics. Follow the cultures. Increase the dose of Lantus to 20 units subcutaneously b.i.d. Otherwise, monitor blood sugars closely. Closely follow with Surgery. Prognosis guarded because of multiple complex medical issues. Further recommendations to follow. Discussed with the patient who understands and agrees. MMODL / IJN: [id number] / ALANNAH
[2021-03-24 20:49] LABS: Glucose,Whole Blood 212 mg/dL (75-99)
[2021-03-24] MEDS: INSULIN DETEMIR (LEVEMIR) 100 UNIT/ML SYR SQ SCH (21:25)
[2021-03-24] MEDS: MULTIVITAMINS, THERA 1 EACH TAB PO SCH (21:26)
[2021-03-24] MEDS: ATORVASTATIN 80 MG TAB PO SCH (21:26)
[2021-03-24] MEDS: PANTOPRAZOLE 40 MG TABLET PO SCH (21:26)
[2021-03-24] MEDS: GLIMEPIRIDE 1 MG TAB PO SCH (21:27)
[2021-03-24] MEDS: traZODone HCL 50 MG TAB PO SCH (21:27)
[2021-03-24] MEDS: DULoxetine HCL 60 MG CAPSULE.DR PO SCH (21:28)
[2021-03-25 06:52] LABS: Glucose,Whole Blood 130 mg/dL (75-99)
[2021-03-25] MEDS: INSULIN ASPART (NovoLOG) 100 UNIT/ML VIAL SQ SCH ×4 (06:56→20:51)
[2021-03-25] MEDS: INSULIN DETEMIR (LEVEMIR) 100 UNIT/ML SYR SQ SCH ×2 (07:11→20:50)
[2021-03-25] MEDS: ASPIRIN 81 MG PO SCH (07:12)
[2021-03-25] MEDS: NICOTINE 21MG/24HR PATCH TRANSDERM SCH (07:12)
[2021-03-25] MEDS: FERROUS SULFATE 325 MG TAB PO SCH ×2 (07:12→20:50)
[2021-03-25] MEDS: CALCIUM CARB-VIT D 500 MG-5 MCG TAB PO SCH (07:12)
[2021-03-25] MEDS: GABAPENTIN 300 MG CAP PO SCH ×3 (07:12→20:50)
[2021-03-25] MEDS: ALBUTEROL HFA INHALER INHALATION PRN ×2 (07:38→19:32)
[2021-03-25] MEDS: TIOTROPIUM 2.5 MCG INHALER INHALATION SCH (07:38)
[2021-03-25] MEDS: VANCOMYCIN 2,000 MG in SODIUM CHLORIDE 0.9% 500 ML 500 ML IVPB SCH (09:10)
[2021-03-25 11:18] LABS: Basophils # (A) 0.06 X 10*3/uL (0.00-0.10); Basophils % (A) 0.9 %; Eosinophils # (A) 0.33 X 10*3/uL (0.04-0.35); Eosinophils % (A) 5.1 %; HGB 9.3 g/dL (13.0-17.0); Lymphocytes # (A) 1.57 X 10*3/uL (0.90-5.00); Lymphocytes % (A) 24.3 %; MCH 27.8 pg (27.0-32.0); MCV 89.8 fL (80.0-97.0); Mean Platelet Volume 8.9 fL (9.5-12.2); Monocytes # (A) 0.24 X 10*3/uL (0.20-1.00); Monocytes % (A) 3.7 %; Neutrophils # (A) 4.21 X 10*3/uL (1.80-7.70); Neutrophils % (A) 65.4 %; Platelet Count 391 X 10*3/uL (140-440); RBC 3.34 X 10*6/uL (4.40-5.60); RDW 17.4 % (11.5-14.5); WBC 6.45 X 10*3/uL (4.50-10.00)
[2021-03-25 11:25] LABS: Glucose,Whole Blood 211 mg/dL (75-99)
[2021-03-25 12:24] LABS: Potassium 4.3 mmol/L (3.5-5.5)
[2021-03-25 12:25] LABS: African American GFR (CKD) 111.7 (60.0-200.0); Anion Gap 3.3 mmol/L (4.00-12.00); BUN/Creat Ratio 22.5 Ratio (12.00-20.00); Calcium 9.1 mg/dL (8.7-10.3); Carbon Dioxide 27.7 mmol/L (21.6-31.8); Non-African American GFR(CKD) 96.4 (60.0-200.0)
--- NOTE | 2021-03-25 14:24 | P.PN ---
Subjective Progress Note Date: 03/25/21 CHIEF COMPLAINT: Abdominal pain HISTORY OF PRESENT ILLNESS: The patient is a 60-year-old male history of gastrointestinal cancer, small bowel obstruction with emergent exploratory laparotomy and incisional hernia repair with mesh placement, 6 months ago September 2020 presents with recurrent abdominal wall fluid collections for seroma. He reports persistent drainage from his abdominal wound. "I feel great!" He reports feeling much better today. ROS: No reports of nausea and vomiting. No fevers or chills. No new chest pain. No productive sputum PHYSICAL EXAM: VITAL SIGNS: Reviewed CONSTITUTIONAL: Well developed and in no acute distress. EYES: Conjuctivae without sclera icterus. Extraocular movements grossly intact. HEAD, EARS, NOSE, THROAT: Moist buccal mucosa. Head is atraumatic, no rmocephalic. Hears conversational speech. No nasal drainage. RESPIRATORY: Non-labored respirations and equal bilateral excursions. CARDIOVASCULAR: Palpable 2+ radial pulses. ABDOMEN: Abdominal wound seroma MUSCULOSKELETAL: No gross deformity of the lower extremities noted. No clubbing. No cyanosis. SKIN: Good skin turgor. Well perfused. NEUROLOGIC: Cranial nerves II through XII grossly intact. No focal or lateralizing signs. PSYCH: Appropriate affect. Alert and oriented to person, place and time. CLINICAL LABS: Reviewed. WBC normal. ASSESSMENT: 1. Complicated abdominal wall wound with abdominal wall seroma 2. MRSA PLAN: 1. He has MRSA wound cultures. Continue IV antibiotics 2. May benefit from wound vac 3. Otherwise stable for discharge from surgical standpoint. Objective - Vital Signs Vital signs: Vital Signs Temp 97.8 F 03/25/21 07:57 Pulse 84 03/25/21 07:57 Resp 17 03/25/21 07:57 BP 117/74 03/25/21 07:57 Pulse Ox 94 L 03/25/21 07:57 Intake & Output 03/24/21 03/25/21 03/25/21 18:59 06:59 18:59 Intake Total 1940 400 Output Total 1800 Balance 1940 -1800 400 Intake: Intake, IV Titration 500 Amount Vancomycin 2,000 mg In 500 Sodium Chloride 0.9% 500 ml 500 ml @ 167 mls/hr IVPB Q12H [facility] Rx#: [id number] Oral 1440 400 Output: Urine 1800 Other: Voiding Method Toilet Toilet Toilet Urinal Urinal Urinal - Labs CBC & Chem 7: 03/25/21 07:16 03/25/21 07:16 Labs: Abnormal Lab Results - Last 24 Hours (Table) 03/24/21 03/24/21 03/25/21 Range/Units 16:31 20:48 06:51 RBC (4.40-5.60) X 10*6/uL Hgb (13.0-17.0) g/dL Hct (39.6-50.0) % MCHC (32.0-37.0) g/dL RDW (11.5-14.5) % MPV (9.5-12.2) fL Anion Gap (4.00-12.00) mmol/L BUN/Creatinine Ratio (12.00-20.00) Ratio Glucose (70-110) mg/dL POC Glucose (mg/dL) 258 H 212 H 130 H (75-99) mg/dL 03/25/21 03/25/21 03/25/21 Range/Units 07:16 07:16 11:23 RBC 3.34 L (4.40-5.60) X 10*6/uL Hgb 9.3 L (13.0-17.0) g/dL Hct 30.0 L (39.6-50.0) % MCHC 31.0 L (32.0-37.0) g/dL RDW 17.4 H (11.5-14.5) % MPV 8.9 L (9.5-12.2) fL Anion Gap 3.30 L (4.00-12.00) mmol/L BUN/Creatinine Ratio 22.50 H (12.00-20.00) Ratio Glucose 117 H (70-110) mg/dL POC Glucose (mg/dL) 211 H (75-99) mg/dL Microbiology - Last 24 Hours (Table) 03/20/21 15:04 Blood Culture - Preliminary Blood No Growth after 96 hours 03/20/21 14:15 Blood Culture - Preliminary Blood No Growth after 96 hours Assessment and Plan (1) Abdominal wall seroma Current Visit: Yes Status: Acute Code(s): S30.1XXA - CONTUSION OF ABDOMINAL WALL, INITIAL ENCOUNTER SNOMED Code(s): 992976758 (2) Positive result for methicillin resistant Staphylococcus aureus (MRSA) screening Current Visit: Yes Status: Acute Code(s): Z22.322 - CARRIER OR SUSPECTED CARRIER OF METHICILLIN RESIS STAPH SNOMED Code(s): 691853350
[2021-03-25 17:15] LABS: Glucose,Whole Blood 144 mg/dL (75-99)
[2021-03-25] MEDS: HYDROcodone/APAP 5-325MG 1 EACH TAB PO PRN (17:17)
[2021-03-25 20:31] LABS: Glucose,Whole Blood 177 mg/dL (75-99)
[2021-03-25] MEDS: ATORVASTATIN 80 MG TAB PO SCH (20:50)
[2021-03-25] MEDS: PANTOPRAZOLE 40 MG TABLET PO SCH (20:50)
[2021-03-25] MEDS: DULoxetine HCL 60 MG CAPSULE.DR PO SCH (20:50)
[2021-03-25] MEDS: MULTIVITAMINS, THERA 1 EACH TAB PO SCH (20:50)
[2021-03-25] MEDS: traZODone HCL 50 MG TAB PO SCH (20:51)
[2021-03-25] MEDS: GLIMEPIRIDE 1 MG TAB PO SCH (20:51)
--- NOTE | 2021-03-26 00:07 | PN ---
PROGRESS NOTE DATE OF SERVICE: 03/25/2021. REASON FOR FOLLOWUP: Abdominal wall abscess, MRSA. INTERVAL HISTORY: The patient is afebrile. He did have more purulent drainage from his wound this morning. Overall pain has slightly decreased in intensity. No chest pain, shortness of breath or cough and no diarrhea. PHYSICAL EXAMINATION: Blood pressure 116/70 with a pulse of 78, temperature 98.5. He is 96% on room air. General description is a middle-aged male lying in bed in no distress. Respiratory system: Unlabored breathing, clear to auscultation anteriorly. Heart S1, S2. Regular rate and rhythm. Abdomen soft, no tenderness. Overall drainage has decreased. LABS: Hemoglobin 9.3, white count 6.4, BUN of 18, creatinine 0.8. DIAGNOSTIC IMPRESSION AND PLAN: Patient with abdominal wall abscess and MRSA, spontaneous drainage. Will repeat his CAT scan to make sure the abscess is going down before transition to outpatient antibiotic therapy. Continue supportive care. MMODL / IJN: [id number] /
[2021-03-26] MEDS: VANCOMYCIN 2,000 MG in SODIUM CHLORIDE 0.9% 500 ML 500 ML IVPB SCH ×2 (02:25→16:48)
[2021-03-26] MEDS: HYDROcodone/APAP 5-325MG 1 EACH TAB PO PRN ×2 (06:03→22:15)
[2021-03-26] MEDS: ASPIRIN 81 MG PO SCH (07:29)
[2021-03-26] MEDS: GABAPENTIN 300 MG CAP PO SCH ×3 (07:29→22:15)
[2021-03-26] MEDS: CALCIUM CARB-VIT D 500 MG-5 MCG TAB PO SCH (07:30)
[2021-03-26] MEDS: INSULIN ASPART (NovoLOG) 100 UNIT/ML VIAL SQ SCH ×4 (07:30→22:16)
[2021-03-26] MEDS: FERROUS SULFATE 325 MG TAB PO SCH ×2 (07:30→20:33)
[2021-03-26] MEDS: INSULIN DETEMIR (LEVEMIR) 100 UNIT/ML SYR SQ SCH ×2 (07:30→22:15)
[2021-03-26] MEDS: NICOTINE 21MG/24HR PATCH TRANSDERM SCH (07:30)
[2021-03-26 07:31] LABS: Glucose,Whole Blood 203 mg/dL (75-99)
[2021-03-26] MEDS: TIOTROPIUM 2.5 MCG INHALER INHALATION SCH (07:38)
[2021-03-26 08:56] LABS: Basophils # (A) 0.05 X 10*3/uL (0.00-0.10); Basophils % (A) 0.8 %; Eosinophils # (A) 0.27 X 10*3/uL (0.04-0.35); Eosinophils % (A) 4.4 %; HCT 29.1 % (39.6-50.0); HGB 9.1 g/dL (13.0-17.0); Lymphocytes # (A) 1.61 X 10*3/uL (0.90-5.00); Lymphocytes % (A) 26.5 %; MCH 27.7 pg (27.0-32.0); MCHC 31.3 g/dL (32.0-37.0); MCV 88.4 fL (80.0-97.0); Mean Platelet Volume 9.3 fL (9.5-12.2); Monocytes # (A) 0.31 X 10*3/uL (0.20-1.00); Monocytes % (A) 5.1 %; Neutrophils # (A) 3.81 X 10*3/uL (1.80-7.70); Neutrophils % (A) 62.9 %; Platelet Count 358 X 10*3/uL (140-440); RBC 3.29 X 10*6/uL (4.40-5.60); RDW 17.6 % (11.5-14.5); WBC 6.07 X 10*3/uL (4.50-10.00)
[2021-03-26 11:27] LABS: Glucose,Whole Blood 161 mg/dL (75-99)
[2021-03-26 11:55] LABS: Anion Gap 7.5 mmol/L (4.00-12.00); BUN/Creat Ratio 22.86 Ratio (12.00-20.00); Calcium 8.7 mg/dL (8.7-10.3); Carbon Dioxide 23.5 mmol/L (21.6-31.8); Non-African American GFR(CKD) 101.9 (60.0-200.0); Potassium 4.4 mmol/L (3.5-5.5)
[2021-03-26 12:13] VITALS: BMI 38.3
[2021-03-26 16:26] LABS: Glucose,Whole Blood 128 mg/dL (75-99)
[2021-03-26] MEDS: ALBUTEROL HFA INHALER INHALATION PRN (16:32)
--- NOTE | 2021-03-26 20:05 | P.PN ---
Subjective Progress Note Date: 03/26/21 CHIEF COMPLAINT: Abdominal pain HISTORY OF PRESENT ILLNESS: The patient is a 60-year-old male history of gastrointestinal cancer, small bowel obstruction with emergent exploratory laparotomy and incisional hernia repair with mesh placement, 6 months ago September 2020 presents with recurrent abdominal wall fluid collections for seroma. He is tolerating diet. He denies any abdominal pain. He still has drainage along his wound. ROS: No reports of nausea and vomiting. No fevers or chills. No new chest pain. No productive sputum PHYSICAL EXAM: VITAL SIGNS: Reviewed CONSTITUTIONAL: Well developed and in no acute distress. EYES: Conjuctivae without sclera icterus. Extraocular movements grossly intact. HEAD, EARS, NOSE, THROAT: Moist buccal mucosa. Head is atraumatic, normocephalic. Hears conversational speech. No nasal drainage. RESPIRATORY: Non-labored respirations and equal bilateral excursions. CARDIOVASCULAR: Palpable 2+ radial pulses. ABDOMEN: Abdominal wound with dressing intact. MUSCULOSKELETAL: No gross deformity of the lower extremities noted. No clubbing. No cyanosis. SKIN: Good skin turgor. Well perfused. NEUROLOGIC: Cranial nerves II through XII grossly intact. No focal or lateralizing signs. PSYCH: Appropriate affect. Alert and oriented to person, place and time. CLINICAL LABS: Reviewed. WBC normal. ASSESSMENT: 1. Complicated abdominal wall wound with abdominal wall seroma 2. MRSA PLAN: 1. Per admitting team, CT of the abdomen pelvis is pending prior to outpatient treatment and possible discharge. Objective - Vital Signs Vital signs: Vital Signs Temp 97.7 F 03/26/21 14:00 Pulse 80 03/26/21 14:00 Resp 18 03/26/21 14:00 BP 104/60 03/26/21 14:00 Pulse Ox 97 03/26/21 14:00 Intake & Output 03/26/21 03/26/21 03/27/21 06:59 18:59 06:59 Intake Total 800 Output Total 400 Balance -400 800 Weight 124.738 kg Intake: Oral 800 Output: Urine 400 Other: Voiding Method Toilet Urinal # Voids 1 3 - Labs CBC & Chem 7: 03/26/21 06:39 03/26/21 06:39 Labs: Abnormal Lab Results - Last 24 Hours (Table) 03/25/21 03/26/21 03/26/21 Range/Units 20:29 06:39 06:39 RBC 3.29 L (4.40-5.60) X 10*6/uL Hgb 9.1 L (13.0-17.0) g/dL Hct 29.1 L (39.6-50.0) % MCHC 31.3 L (32.0-37.0) g/dL RDW 17.6 H (11.5-14.5) % MPV 9.3 L (9.5-12.2) fL BUN/Creatinine Ratio 22.86 H (12.00-20.00) Ratio Glucose 125 H (70-110) mg/dL POC Glucose (mg/dL) 177 H (75-99) mg/dL 03/26/21 03/26/21 03/26/21 Range/Units 07:30 11:26 16:25 RBC (4.40-5.60) X 10*6/uL Hgb (13.0-17.0) g/dL Hct (39.6-50.0) % MCHC (32.0-37.0) g/dL RDW (11.5-14.5) % MPV (9.5-12.2) fL BUN/Creatinine Ratio (12.00-20.00) Ratio Glucose (70-110) mg/dL POC Glucose (mg/dL) 203 H 161 H 128 H (75-99) mg/dL Microbiology - Last 24 Hours (Table) 03/20/21 15:04 Blood Culture - Final Blood No Growth after 144 hours 03/20/21 14:15 Blood Culture - Final Blood No Growth after 144 hours Assessment and Plan (1) Abdominal wall seroma Current Visit: Yes Status: Acute Code(s): S30.1XXA - CONTUSION OF ABDOMINAL WALL, INITIAL ENCOUNTER SNOMED Code(s): 153571009 (2) Positive result for methicillin resistant Staphylococcus aureus (MRSA) screening Current Visit: Yes Status: Acute Code(s): Z22.322 - CARRIER OR SUSPECTED CARRIER OF METHICILLIN RESIS STAPH SNOMED Code(s): 729629432
[2021-03-26] MEDS: traZODone HCL 50 MG TAB PO SCH (20:33)
[2021-03-26] MEDS: ATORVASTATIN 80 MG TAB PO SCH (20:33)
[2021-03-26] MEDS: DULoxetine HCL 60 MG CAPSULE.DR PO SCH (20:33)
[2021-03-26] MEDS: MULTIVITAMINS, THERA 1 EACH TAB PO SCH (20:33)
[2021-03-26] MEDS: PANTOPRAZOLE 40 MG TABLET PO SCH (20:34)
[2021-03-26] MEDS: GLIMEPIRIDE 1 MG TAB PO SCH (20:34)
[2021-03-26 20:58] LABS: Glucose,Whole Blood 160 mg/dL (75-99)
--- NOTE | 2021-03-26 21:24 | PN ---
PROGRESS NOTE DATE OF SERVICE: 03/26/2021 REASON FOR FOLLOWUP: Intraabdominal wall abscess. INTERVAL HISTORY: Patient is afebrile. The patient is breathing comfortably. Patient denies having any chest pain, shortness of breath or cough. Abdominal pain is currently controlled. No nausea, vomiting or diarrhea. PHYSICAL EXAMINATION: Blood pressure 104/50 with a pulse of 80, temperature 97.7. He is 97% on room air. General description is a middle-aged male lying in bed in no distress. Respiratory system: Unlabored breathing, clear to auscultation anteriorly. Heart S1, S2. Regular rate and rhythm. Abdomen: Soft, no tenderness or guarding or rigidity. LABS: Hemoglobin 9.1, white count 6.7, BUN of 15, creatinine 0.7. DIAGNOSTIC IMPRESSION: Patient with abdominal wall abscess. Culture with MRSA with some drainage. Repeat CT. If did have overall improvement, may proceed with a PICC line and IV antibiotic on discharge. However, if no improvement, he may need surgical drainage. Continue supportive care. MMODL / IJN: [id number] /
--- NOTE | 2021-03-26 22:18 | P.PN ---
Subjective Progress Note Date: 03/25/21 Patient is a 60-year-old male was admitted to hospital with right upper quadrant abdominal pain and has evidence of MRSA infection. Patient still having persistent drainage. Wound is packed at this time. General surgery and ID is on board. Constitutional: Patient denies any fever or chills . No generalized weakness or weight loss. Abdomen: Patient denied nausea vomiting and diarrhea and abdominal pain. Cardiovascular: Patient denies any chest pain or short of breath no palpitations. Respiratory: patient denied any cough or sputum production. No shortness of breath Neurologic: Patient denied any numbness or tingling headache. Musculoskeletal: Patient denies any complaints of joint swelling or deformity. Objective - Vital Signs Vital signs: Vital Signs Temp 97.8 F 03/25/21 07:57 Pulse 84 03/25/21 07:57 Resp 17 03/25/21 07:57 BP 117/74 03/25/21 07:57 Pulse Ox 94 L 03/25/21 07:57 Intake & Output 03/24/21 03/25/21 03/25/21 18:59 06:59 18:59 Intake Total 1940 400 Output Total 1800 Balance 1940 -1800 400 Intake: Intake, IV Titration 500 Amount Vancomycin 2,000 mg In 500 Sodium Chloride 0.9% 500 ml 500 ml @ 167 mls/hr IVPB Q12H [facility] Rx#: [id number] Oral 1440 400 Output: Urine 1800 Other: Voiding Method Toilet Toilet Toilet Urinal Urinal Urinal - Exam PHYSICAL EXAMINATION: Patient is lying in the bed comfortably, no acute distress, awake alert and oriented.. HEENT: Normocephalic. Neck is supple. Pupils reactive. Nostrils clear. Oral cavity is moist. Neck reveals no JVD, carotid bruits, or thyromegaly. CHEST EXAMINATION: Trachea is central. Symmetrical expansion. Lung agee clear to auscultation and percussion. CARDIAC: Normal S1, S2 with no gallops. No murmurs ABDOMEN: Soft. abdominal wound packed. Bowel sounds normal. No organomegaly. No abdominal bruits. Extremities: reveal no edema. No clubbing or cyanosis Neurologically awake, alert, oriented x3 with well-coordinated movements. No focal deficits noted Skin: No rash or skin lesions. Psychiatric: Coperative. Nonsuicidal Musculoskeletal: No joint swelling or deformity. Normal range of motion. - Labs CBC & Chem 7: 03/26/21 06:39 03/26/21 06:39 Labs: Abnormal Lab Results - Last 24 Hours (Table) 03/24/21 03/24/21 03/25/21 Range/Units 16:31 20:48 06:51 RBC (4.40-5.60) X 10*6/uL Hgb (13.0-17.0) g/dL Hct (39.6-50.0) % MCHC (32.0-37.0) g/dL RDW (11.5-14.5) % MPV (9.5-12.2) fL POC Glucose (mg/dL) 258 H 212 H 130 H (75-99) mg/dL 03/25/21 03/25/21 Range/Units 07:16 11:23 RBC 3.34 L (4.40-5.60) X 10*6/uL Hgb 9.3 L (13.0-17.0) g/dL Hct 30.0 L (39.6-50.0) % MCHC 31.0 L (32.0-37.0) g/dL RDW 17.4 H (11.5-14.5) % MPV 8.9 L (9.5-12.2) fL POC Glucose (mg/dL) 211 H (75-99) mg/dL Microbiology - Last 24 Hours (Table) 03/20/21 15:04 Blood Culture - Preliminary Blood No Growth after 96 hours 03/20/21 14:15 Blood Culture - Preliminary Blood No Growth after 96 hours Assessment and Plan Assessment: Right upper quadrant abdominal wall abscess and cellulitis and MRSA with failure of outpatient treatment. Diabetes type 2 uncontrolled with hyperglycemia Hyponatremia Elevated ALT and alk phos Anemia of chronic disease Obesity with BMI 38.6 Asthma/COPD History of DVT GERD Hypertension Hyperlipidemia Type II sleep apnea History of open incisional hernia repair with infection previously. Dizziness Depression hx of smoking Plan Patient will be continued antibiotics in the form of vancomycin. ID is on board. Continue with insulin regimen and insulin dose was increased for better blood sugar control. Surgery is on board. Continue to follow closely.
--- NOTE | 2021-03-26 22:20 | P.PN ---
Subjective Progress Note Date: 03/26/21 Patient is a 60-year-old male was admitted to hospital with right upper quadrant abdominal pain and has evidence of MRSA infection. Patient still having persistent drainage. Wound is packed at this time. General surgery and ID is on board. 03/26/2021 Patient is currently resting in the bed. Awake alert 1x3. No complaints of abdominal pain. Continued on antibiotics at home vancomycin. Patient has been afebrile. Wound culture showed polymicrobial species. No headache or dizziness or lightheadedness. Wound is packed. No nausea vomiting abdominal pain or diarrhea. Constitutional: Patient denies any fever or chills . No generalized weakness or weight loss. Abdomen: Patient denied nausea vomiting and diarrhea and abdominal pain. Cardiovascular: Patient denies any chest pain or short of breath no palpitations. Respiratory: patient denied any cough or sputum production. No shortness of breath Neurologic: Patient denied any numbness or tingling headache. Musculoskeletal: Patient denies any complaints of joint swelling or deformity. Objective - Vital Signs Vital signs: Vital Signs Temp 98.5 F 03/26/21 19:05 Pulse 78 03/26/21 19:05 Resp 18 03/26/21 19:05 BP 139/79 03/26/21 19:05 Pulse Ox 98 03/26/21 19:05 Intake & Output 03/26/21 03/26/21 03/27/21 06:59 18:59 06:59 Intake Total 800 Output Total 400 Balance -400 800 Weight 124.738 kg Intake: Oral 800 Output: Urine 400 Other: Voiding Method Toilet Urinal # Voids 1 3 - Exam PHYSICAL EXAMINATION: Patient is lying in the bed comfortably, no acute distress, awake alert and oriented.. HEENT: Normocephalic. Neck is supple. Pupils reactive. Nostrils clear. Oral cavity is moist. Neck reveals no JVD, carotid bruits, or thyromegaly. CHEST EXAMINATION: Trachea is central. Symmetrical expansion. Lung agee clear to auscultation and percussion. CARDIAC: Normal S1, S2 with no gallops. No murmurs ABDOMEN: Soft. abdominal wound packed. Bowel sounds normal. No organomegaly. No abdominal bruits. Extremities: reveal no edema. No clubbing or cyanosis Neurologically awake, alert, oriented x3 with well-coordinated movements. No focal deficits noted Skin: No rash or skin lesions. Psychiatric: Coperative. Nonsuicidal Musculoskeletal: No joint swelling or deformity. Normal range of motion. - Labs CBC & Chem 7: 03/26/21 06:39 03/26/21 06:39 Labs: Abnormal Lab Results - Last 24 Hours (Table) 03/26/21 03/26/21 03/26/21 Range/Units 06:39 06:39 07:30 RBC 3.29 L (4.40-5.60) X 10*6/uL Hgb 9.1 L (13.0-17.0) g/dL Hct 29.1 L (39.6-50.0) % MCHC 31.3 L (32.0-37.0) g/dL RDW 17.6 H (11.5-14.5) % MPV 9.3 L (9.5-12.2) fL BUN/Creatinine Ratio 22.86 H (12.00-20.00) Ratio Glucose 125 H (70-110) mg/dL POC Glucose (mg/dL) 203 H (75-99) mg/dL 03/26/21 03/26/21 03/26/21 Range/Units 11:26 16:25 20:57 RBC (4.40-5.60) X 10*6/uL Hgb (13.0-17.0) g/dL Hct (39.6-50.0) % MCHC (32.0-37.0) g/dL RDW (11.5-14.5) % MPV (9.5-12.2) fL BUN/Creatinine Ratio (12.00-20.00) Ratio Glucose (70-110) mg/dL POC Glucose (mg/dL) 161 H 128 H 160 H (75-99) mg/dL Microbiology - Last 24 Hours (Table) 03/20/21 15:04 Blood Culture - Final Blood No Growth after 144 hours 03/20/21 14:15 Blood Culture - Final Blood No Growth after 144 hours Assessment and Plan Assessment: Right upper quadrant abdominal wall abscess and cellulitis and MRSA with failure of outpatient treatment. Diabetes type 2 uncontrolled with hyperglycemia Hyponatremia Elevated ALT and alk phos Anemia of chronic disease Obesity with BMI 38.6 Asthma/COPD History of DVT GERD Hypertension Hyperlipidemia Type II sleep apnea History of open incisional hernia repair with infection previously. Dizziness Depression hx of smoking Plan Patient will be continued antibiotics in the form of vancomycin. ID is on board. Continue with insulin regimen and insulin dose was increased for better blood sugar control. Surgery is on board. Continue to follow closely.
[2021-03-27 06:58] LABS: Glucose,Whole Blood 89 mg/dL (75-99)
[2021-03-27] MEDS: VANCOMYCIN 2,000 MG in SODIUM CHLORIDE 0.9% 500 ML 500 ML IVPB SCH ×2 (07:32→23:30)
[2021-03-27] MEDS: NICOTINE 21MG/24HR PATCH TRANSDERM SCH (07:55)
[2021-03-27] MEDS: INSULIN ASPART (NovoLOG) 100 UNIT/ML VIAL SQ SCH ×4 (08:13→21:22)
[2021-03-27] MEDS: IOPAMIDOL CONTRAST (ORAL USE) VIAL PO PRN ×2 (08:26→09:20)
[2021-03-27] MEDS: ALBUTEROL HFA INHALER INHALATION PRN ×2 (08:50→21:37)
[2021-03-27] MEDS: TIOTROPIUM 2.5 MCG INHALER INHALATION SCH (08:50)
[2021-03-27] MEDS ORDERED: VANCOMYCIN TROUGH DUE 1 EACH MISC MISCELLANE ONE (09:00)
[2021-03-27 10:13] LABS: African American GFR (CKD) >90 (>60 ml/min/1.73 sqM); Non-African American GFR(CKD) >90 (>60 ml/min/1.73 sqM)
[2021-03-27] MEDS: CALCIUM CARB-VIT D 500 MG-5 MCG TAB PO SCH (10:13)
[2021-03-27] MEDS: ASPIRIN 81 MG PO SCH (10:13)
[2021-03-27] MEDS: GABAPENTIN 300 MG CAP PO SCH ×3 (10:13→21:23)
[2021-03-27] MEDS: FERROUS SULFATE 325 MG TAB PO SCH ×2 (10:13→21:21)
[2021-03-27] MEDS: INSULIN DETEMIR (LEVEMIR) 100 UNIT/ML SYR SQ SCH ×2 (10:28→21:22)
--- NOTE | 2021-03-27 10:38 | CT ---
EXAMINATION TYPE: CT abdomen pelvis w con DATE OF EXAM: 03/27/2021 COMPARISON: Most recent CT 7 days ago and older studies. HISTORY: Abdominal wall abscess follow up; history of small bowel cancer. CT DLP: 3194.7 mGycm, Automated Exposure Control for Dose Reduction was Utilized. CONTRAST: CT scan of the abdomen and pelvis is performed with oral and with IV Contrast, patient injected with 100 ml mL of Isovue 300. FINDINGS: LUNG BASES: No significant abnormality is appreciated. LIVER/GB: No significant abnormality is appreciated. PANCREAS: Mild fat replaced atrophy redemonstrated. SPLEEN: No significant abnormality is seen. ADRENALS: Stable 1.3 cm left adrenal low dense lesion presumed benign. KIDNEYS: Stable tiny cortical right renal calculi coronal Image 58. BOWEL: Oral contrast has not reached the level of the terminal ileum making evaluation of distal darryl l suboptimal. No suspicious small or large bowel dilatation is seen. [id number]-lqnnyopa fecal prominenc e in the right colon. Appendix surgically absent. Surgical sutures left lower quadrant small bowel lo op less well seen on current study due to contrast at this level but remain present near coronal imag e 31. PROSTATE/SEMINAL VESICLES: Prostate gland upper limits of normal in size. LYMPH NODES: No greater than 1cm abdominal or pelvic lymph nodes are appreciated. OSSEOUS STRUCTURES: No significant abnormality is seen. OTHER: Persistent ventral wall hernia above the umbilicus axial image 26-containing fat and tiny mese nteric vessels on current study. Below this vertical scar tissue is redemonstrated coronal image 10 f or Reference. Mild to moderate calcified plaque of the aorta extends into branch vessels. Persistent anterior right mid abdominal focus of irregular low density and foci of air extending supe rficially from skin surface to the deeper rectus sheath where there is thin walled fluid collection a nd air measuring approximately 4.2 x 6.0 x 2.4 cm axial image 36 and coronal image 30. Finding more p rominent from prior. No intraperitoneal extension identified. IMPRESSION: More prominent anterior right mid abdominal finding suggesting infectious progression as there is increasing size deeper thin-walled fluid collection. Fistulous communication to the skin is thought present. Correlate clinically. Consider surgical debridement and/or treatment.
[2021-03-27 11:38] LABS: Glucose,Whole Blood 135 mg/dL (75-99)
[2021-03-27] MEDS ORDERED: LIDOCAINE 1% INJ 10MG/ML (20 ML MDV) SQ ONE (12:59)
--- NOTE | 2021-03-27 14:31 | P.PN ---
Subjective Progress Note Date: 03/27/21 Patient is a 60-year-old male was admitted to hospital with right upper quadrant abdominal pain and has evidence of MRSA infection. Patient still having persistent drainage. Wound is packed at this time. General surgery and ID is on board. 03/26/2021 Patient is currently resting in the bed. Awake alert 1x3. No complaints of abdominal pain. Continued on antibiotics at home vancomycin. Patient has been afebrile. Wound culture showed polymicrobial species. No headache or dizziness or lightheadedness. Wound is packed. No nausea vomiting abdominal pain or diarrhea. 03/27/2021 Patient is seen and examined in follow-up status post computed tomography scan of the abdomen showing a suboptimal study as the contrast has not reached the level of the terminal ileum making evaluation of distal bowel suboptimal although there is more prominence of the anterior right mid abdominal findings suggesting infectious progression that is increasing in size and deeper thin- walled fluid collection noted with possible fistulous communication to the skin being present recommending surgical debridement and/or treatment. Surgery is following and awaiting and appreciate input. Patient is scheduled to receive a PICC line today with infectious disease following closely and patient is maintained on IV vancomycin and will continue. Patient continues on sliding scale along with long-acting and oral anti-diabetic's and will continue to monitor sugars closely. Constitutional: Patient denies any fever or chills. No generalized weakness or weight loss. Abdomen: Patient denied nausea vomiting and diarrhea and abdominal pain. Cardiovascular: Patient denies any chest pain or short of breath no palpit ations. Respiratory: patient denied any cough or sputum production. No shortness of breath Neurologic: Patient denied any numbness or tingling headache. Musculoskeletal: Patient denies any complaints of joint swelling or deformity. Objective - Vital Signs Vital signs: Vital Signs Temp 98.0 F 03/27/21 08:00 Pulse 66 03/27/21 08:00 Resp 16 03/27/21 08:00 BP 125/72 03/27/21 08:00 Pulse Ox 99 03/27/21 08:00 Intake & Output 03/26/21 03/27/21 03/27/21 18:59 06:59 18:59 Intake Total 800 380 Balance 800 380 Weight 124.738 kg Intake: Oral 800 380 Other: Voiding Method Toilet Urinal # Voids 3 2 - Exam Patient is sitting up at the side of the bed, awake alert and oriented.. HEENT: Normocephalic. Neck is supple. Pupils reactive. Nostrils clear. Oral cavity is moist. Neck reveals no JVD, carotid bruits, or thyromegaly. CHEST EXAMINATION: Trachea is central. Symmetrical expansion. Lung agee clear to auscultation and percussion. CARDIAC: Normal S1, S2 with no gallops. No murmurs ABDOMEN: Soft. abdominal wound packed. Bowel sounds normal. No organomegaly. No abdominal bruits. Extremities: reveal no edema. No clubbing or cyanosis Neurologically awake, alert, oriented x3 with well-coordinated movements. No focal deficits noted Skin: No rash or skin lesions. Psychiatric: Cooperative. Non-suicidal Musculoskeletal: No joint swelling or deformity. Normal range of motion. - Labs CBC & Chem 7: 03/26/21 06:39 03/27/21 09:27 Labs: Abnormal Lab Results - Last 24 Hours (Table) 03/26/21 03/26/21 03/27/21 Range/Units 16:25 20:57 11:37 POC Glucose (mg/dL) 128 H 160 H 135 H (75-99) mg/dL Microbiology - Last 24 Hours (Table) 03/20/21 15:04 Blood Culture - Final Blood No Growth after 144 hours 03/20/21 14:15 Blood Culture - Final Blood No Growth after 144 hours Assessment and Plan Assessment: Right upper quadrant abdominal wall abscess and cellulitis and MRSA with failure of outpatient treatment. Diabetes type 2 uncontrolled with hyperglycemia Hyponatremia Elevated ALT and alk phos Anemia of chronic disease Obesity with BMI 38.6 Asthma/COPD History of DVT GERD Hypertension Hyperlipidemia Type II sleep apnea History of open incisional hernia repair with infection previously. Dizziness Depression hx of smoking Full code Plan: Patient to continue with IV antibiotics in the form of vancomycin. Infectious disease following closely and plan is to receive a PICC line today as patient will need IV antibiotic therapy in the outpatient setting. Case management working with daughter who will be providing care for him and arranging for home care in the outpatient setting. Plan is to return home with IV antibiotic therapy. Patient underwent CT abdomen as mentioned previously and awaiting surgical input. Surgery is following closely. Will repeat a.m. labs and continue to monitor closely. guarded prognosis.
--- NOTE | 2021-03-27 14:37 | IR ---
PICC LINE PLACEMENT: HISTORY: Infection requiring long-term antibiotic therapy PROCEDURE: Ultrasound and fluoroscopic guidance of PICC line placement. COMPLICATIONS: None ANESTHESIA: 1. 1% Lidocaine locally. FINDINGS/TECHNIQUE: The procedure was explained to the patient. The risks, complications, benefits and alternatives were discussed and any questions were answered. Informed consent was obtained. The patient was placed supine on the fluoroscopic table and prepped and draped in the usual sterile fash ion. Utilizing a 21 gauge needle and sonographic and fluoroscopic guidance, access in the left basi lic vein was achieved and there is placement of a 0.018 guidewire. The vein is patent. A 4-F sheat h was placed over the guidewire. The guidewire and dilator were removed and a 4-F. PICC line was jonathon avel through the sheath with the tip at the level of the SVC. The sheath was removed, the catheter wa s flushed and sutured into position. The patient was stable throughout the procedure and remained st able upon discharge from the Department of Radiology. The vein puncture was patent under ultrasound. A chiang scale image was obtained to document patency of the vein punctured. All elements of the maximal barrier technique were utilized. FLUOROSCOPY TIME: 0.2 minutes and 1 minute submitted for IMPRESSION: Successful PICC line placement under ultrasound and fluoroscopic guidance.
--- NOTE | 2021-03-27 14:58 | P.PN ---
Subjective Progress Note Date: 03/27/21 CHIEF COMPLAINT: Abdominal wound infection HISTORY OF PRESENT ILLNESS: Patient being followed for his abdominal wound infection. Patient reports only pain at the site when wound is being packed. Patient had a repeat computed tomography scan abdomen and pelvis showing more prominent anterior right mid abdominal findings suggesting infectious progression as there is increasing size deeper thin-walled fluid collection. Fistulous communication to the skin is thought to be present. Afebrile WBC 6.07 Patient seen and examined with Dr. chang PHYSICAL EXAM: VITAL SIGNS: Reviewed. GENERAL: Well-developed in no acute distress. HEENT: No sclera icterus. Extraocular movements grossly intact. Moist buccal mucosa. Head is atraumatic, normocephalic. ABDOMEN: Soft. Nondistended. Nontender. No cellulitis noted. There is purulent drainage NEUROLOGIC: Alert and oriented. Cranial nerves II through XII grossly intact. ASSESSMENT: 1. Abdominal wound infection with CAT scan showing progression as there is increasing size of deeper thin-walled fluid collection noted on CAT scan PLAN: -Patient scheduled for I&D with Dr. Chang for tomorrow 03/28/2021 -Keep patient nothing by mouth after midnight -Continue antibiotics per ID -Continue local wound care Physician Assessment Specialist note has been reviewed by physician. Signing provider agrees with the documented findings, assessment, and plan of care. Objective - Vital Signs Vital signs: Vital Signs Temp 98.0 F 03/27/21 08:00 Pulse 66 03/27/21 08:00 Resp 16 03/27/21 08:00 BP 125/72 03/27/21 08:00 Pulse Ox 99 03/27/21 08:00 Intake & Output 03/26/21 03/27/21 03/27/21 18:59 06:59 18:59 Intake Total 800 380 Balance 800 380 Weight 124.738 kg Intake: Oral 800 380 Other: Voiding Method Toilet Urinal # Voids 3 2 - Labs CBC & Chem 7: 03/26/21 06:39 03/27/21 09:27 Labs: Abnormal Lab Results - Last 24 Hours (Table) 03/26/21 03/26/21 03/27/21 Range/Units 16:25 20:57 11:37 POC Glucose (mg/dL) 128 H 160 H 135 H (75-99) mg/dL Microbiology - Last 24 Hours (Table) 03/20/21 15:04 Blood Culture - Final Blood No Growth after 144 hours 03/20/21 14:15 Blood Culture - Final Blood No Growth after 144 hours
[2021-03-27] MEDS: HYDROcodone/APAP 5-325MG 1 EACH TAB PO PRN ×2 (15:34→23:59)
[2021-03-27 16:21] LABS: Glucose,Whole Blood 156 mg/dL (75-99)
--- NOTE | 2021-03-27 19:06 | PN ---
PROGRESS NOTE DATE OF SERVICE: 03/27/2021 REASON FOR FOLLOWUP: Intraabdominal abscess. INTERVAL HISTORY: The patient is afebrile. The patient is breathing comfortably. The patient denies having any chest pain, shortness of breath or cough. No nausea. No worsening abdominal pain. No vomiting or diarrhea. PHYSICAL EXAMINATION: Blood pressure 122/81 with a pulse of 69, temperature 98. He is 93% on room air. GENERAL DESCRIPTION: General description is a middle-aged male lying in bed in no distress. RESPIRATORY SYSTEM: Unlabored breathing. Clear to auscultation anteriorly. HEART: S1, S2. Regular rate and rhythm. ABDOMEN: Soft. Slightly distended. No guarding or rigidity. LABS: The patient did have a repeat CT that shows progression of his abdominal wall abscess. DIAGNOSTIC IMPRESSION AND PLAN: Patient with abdominal wall abscess with spontaneous drainage. However, repeat CT scan shows progression. Patient needs surgical drainage. Communicated to the surgical team. Continue vancomycin and monitor his clinical course closely. MMODL / IJN: [id number] /
[2021-03-27 20:49] LABS: Glucose,Whole Blood 108 mg/dL (75-99)
[2021-03-27] MEDS: ATORVASTATIN 80 MG TAB PO SCH (21:21)
[2021-03-27] MEDS: DULoxetine HCL 60 MG CAPSULE.DR PO SCH (21:21)
[2021-03-27] MEDS: traZODone HCL 50 MG TAB PO SCH (21:22)
[2021-03-27] MEDS: GLIMEPIRIDE 1 MG TAB PO SCH (21:22)
[2021-03-27] MEDS: PANTOPRAZOLE 40 MG TABLET PO SCH (21:22)
[2021-03-27] MEDS: MULTIVITAMINS, THERA 1 EACH TAB PO SCH (21:22)
[2021-03-28 06:47] LABS: Glucose,Whole Blood 92 mg/dL (75-99)
[2021-03-28 07:10] LABS: Anisocytosis Slight; Basophils % (A) 0 %; Eosinophils # (A) 0.2 k/uL (0-0.7); Eosinophils % (A) 3 %; HCT 29.4 % (39.0-53.0); HGB 9.6 gm/dL (13.0-17.5); Lymphocytes % (A) 15 %; MCH 29.6 pg (25.0-35.0); MCHC 32.6 g/dL (31.0-37.0); MCV 90.6 fL (80.0-100.0); Mean Platelet Volume 6.7; Monocytes # (A) 0.2 k/uL (0-1.0); Monocytes % (A) 3 %; Neutrophils # (A) 5.1 k/uL (1.3-7.7); Neutrophils % (A) 78 %; Platelet Count 314 k/uL (150-450); RBC 3.24 m/uL (4.30-5.90); RDW 17.7 % (11.5-15.5); WBC 6.6 k/uL (3.8-10.6)
[2021-03-28 07:19] LABS: African American GFR (CKD) >90 (>60 ml/min/1.73 sqM); Anion Gap 6 mmol/L; Blood Urea Nitrogen 16 mg/dL (9-20); Calcium 8.9 mg/dL (8.4-10.2); Carbon Dioxide 24 mmol/L (22-30); Chloride 108 mmol/L (98-107); Glucose 75 mg/dL (74-99); Non-African American GFR(CKD) >90 (>60 ml/min/1.73 sqM); Potassium 3.8 mmol/L (3.5-5.1); Sodium 138 mmol/L (137-145)
[2021-03-28] MEDS: INSULIN ASPART (NovoLOG) 100 UNIT/ML VIAL SQ SCH ×4 (07:30→21:49)
[2021-03-28] MEDS: FERROUS SULFATE 325 MG TAB PO SCH ×2 (07:58→21:48)
[2021-03-28] MEDS: ASPIRIN 81 MG PO SCH (07:58)
[2021-03-28] MEDS: CALCIUM CARB-VIT D 500 MG-5 MCG TAB PO SCH (07:58)
[2021-03-28] MEDS: GABAPENTIN 300 MG CAP PO SCH ×3 (07:58→21:50)
[2021-03-28] MEDS: INSULIN DETEMIR (LEVEMIR) 100 UNIT/ML SYR SQ SCH ×2 (07:59→21:49)
[2021-03-28] MEDS: NICOTINE 21MG/24HR PATCH TRANSDERM SCH (08:01)
[2021-03-28] MEDS: TIOTROPIUM 2.5 MCG INHALER INHALATION SCH (08:56)
[2021-03-28] MEDS: ALBUTEROL HFA INHALER INHALATION PRN ×2 (08:56→21:22)
[2021-03-28] MEDS ORDERED: LACTATED RINGERS 1,000 ML IV ONE (10:23)
[2021-03-28] MEDS ORDERED: HEPARIN SODIUM,PORCINE 5,000 UNIT/ML 1 ML VIAL SQ ONE (11:11)
[2021-03-28] MEDS ORDERED: HEPARIN SODIUM,PORCINE/PF 5,000 UNIT/0.5 ML SYRINGE SQ ONE (11:12)
[2021-03-28] MEDS ORDERED: PROPOFOL 10 MG/ML 20 ML VIAL IV ONE (11:35)
[2021-03-28] MEDS ORDERED: fentaNYL (PF) 50 MCG/ML 2 ML AMP ONE (11:35)
[2021-03-28] MEDS ORDERED: LIDOCAINE 1% INJ 10MG/ML (20 ML MDV) ONE (11:35)
[2021-03-28] MEDS ORDERED: MIDAZOLAM 2 MG/2 ML VIAL ONE (11:35)
[2021-03-28] MEDS ORDERED: HYDROmorphone (PF) 1 MG/ML ONE (11:35)
[2021-03-28] MEDS ORDERED: SUCCINYLCHOLINE CHLORIDE VIAL 200 MG/10 ML VIAL IV ONE (11:35)
[2021-03-28] MEDS ORDERED: BUPIVACAINE (PF) 0.5% 30 ML VIAL SQ ONE (12:00)
--- NOTE | 2021-03-28 12:28 | P.OP ---
Date of Procedure: 03/28/21 Preoperative Diagnosis: Abdominal wall abscess Postoperative Diagnosis: Abdominal wall wound Procedure(s) Performed: Incision drainage abscess Debridement abdominal wall Anesthesia: ERIN Surgeon: Guido Jacobson Estimated Blood Loss (ml): 25 Pathology: other (Wound culture) Condition: stable Disposition: PACU Description of Procedure: Patient's placed on the operative table in the supine position. He received general endotracheal anesthesia. His abdomen was prepared draped usual sterile fashion. The patient had a previous KANWAL drain fistula track in the right abdominal wall. Hemostasis was placed in the official. The skin was incised there was a cavity measuring prostate 5 x 5 cm. Using a 15 blade a piece of tissue was sharply debrided into the pathology for wound culture. The wound was cleaned using sponges. And then the wound was packed with wet-to-dry Kerlix. Patient top she will was sent to recovery in stable condition.
[2021-03-28] MEDS ORDERED: HYDROmorphone 0.5 MG/0.5 ML SYRINGE IVP ONE (12:39)
[2021-03-28 12:48] LABS: Glucose,Whole Blood 101 mg/dL (75-99)
[2021-03-28] MEDS ORDERED: VANCOMYCIN TROUGH DUE 1 EACH MISC MISCELLANE ONE (14:00)
--- NOTE | 2021-03-28 14:05 | P.PN ---
Subjective Progress Note Date: 03/28/21 Patient is a 60-year-old male was admitted to hospital with right upper quadrant abdominal pain and has evidence of MRSA infection. Patient still having persistent drainage. Wound is packed at this time. General surgery and ID is on board. 03/26/2021 Patient is currently resting in the bed. Awake alert 1x3. No complaints of abdominal pain. Continued on antibiotics at home vancomycin. Patient has been afebrile. Wound culture showed polymicrobial species. No headache or dizziness or lightheadedness. Wound is packed. No nausea vomiting abdominal pain or diarrhea. 03/27/2021 Patient is seen and examined in follow-up status post computed tomography scan of the abdomen showing a suboptimal study as the contrast has not reached the level of the terminal ileum making evaluation of distal bowel suboptimal although there is more prominence of the anterior right mid abdominal findings suggesting infectious progression that is increasing in size and deeper thin- walled fluid collection noted with possible fistulous communication to the skin being present recommending surgical debridement and/or treatment. Surgery is following and awaiting and appreciate input. Patient is scheduled to receive a PICC line today with infectious disease following closely and patient is maintained on IV vancomycin and will continue. Patient continues on sliding scale along with long-acting and oral anti-diabetic's and will continue to monitor sugars closely. 03/28/2021 Patient is seen in follow-up this morning currently nothing by mouth as patient is scheduled for I&D with surgery of the abdomen today. Will await surgical report. Patient right side abdominal dressing shows continued drainage and currently intact as patient is awaiting surgery. Surgery and infectious disease following. Patient is continued on IV vancomycin and has received a PICC line and will likely require outpatient IV antibiotic therapy. Will discuss with infectious disease about this and discharge planning. Cultures are being obtained from surgery today and will await finalization to determine discharge antibiotics. White blood count is 6.6 and patient is afebrile. Hemoglobin is 9.6, sodium is 138 with a potassium of 3.8 and current creatinine is 0.82. Long-acting insulin was held as patient is nothing by mouth and blood sugars are controlled at this time. Will resume current medication regimen once diet is restarted. Constitutional: Patient denies any fever or chills. No generalized weakness or weight loss. Abdomen: Patient denied nausea vomiting and diarrhea and abdominal pain. Cardiovascular: Patient denies any chest pain or short of breath no palpitations. Respiratory: patient denied any cough or sputum production. No shortness of breath Neurologic: Patient denied any numbness or tingling headache. Musculoskeletal: Patient denies any complaints of joint swelling or deformity. Active Medications Acetaminophen (Acetaminophen Tab 325 Mg Tab) 650 mg PO Q6HR PRN PRN Reason: Mild Pain or Fever > 100.5 Hydrocodone Bitart/Acetaminophen (Hydrocodone/Apap 5-325mg 1 Each Tab) 1 each PO Q6HR PRN PRN Reason: Pain Last Admin: 03/27/21 23:59 Dose: 1 each Documented by: Albuterol Sulfate (Albuterol Hfa Inhaler) 2 puff INHALATION RT-Q6H PRN PRN Reason: Shortness Of Breath Last Admin: 03/28/21 08:56 Dose: 2 puff Documented by: Aspirin (Aspirin 81 Mg) 81 mg PO DAILY [facility] Last Admin: 03/28/21 07:58 Dose: Not Given Documented by: Atorvastatin Calcium (Atorvastatin 80 Mg Tab) 80 mg PO [facility] Last Admin: 03/27/21 21:21 Dose: 80 mg Documented by: Calcium Carbonate (Calcium Carb-Vit D 500 Mg-5 Mcg Tab) 2 each PO DAILY [facility] Last Admin: 03/28/21 07:58 Dose: Not Given Documented by: Duloxetine HCl (Duloxetine Hcl 60 Mg Capsule.Dr) 60 mg PO [facility] Last Admin: 03/27/21 21:21 Dose: 60 mg Documented by: Ferrous Sulfate (Ferrous Sulfate 325 Mg Tab) 325 mg PO BID [facility] Last Admin: 03/28/21 07:58 Dose: Not Given Documented by: Gabapentin (Gabapentin 300 Mg Cap) 300 mg PO TID [facility] Last Admin: 03/28/21 07:58 Dose: Not Given Documented by: Glimepiride (Glimepiride 1 Mg Tab) 1 mg PO [facility] Last Admin: 03/27/21 21:22 Dose: 1 mg Documented by: Vancomycin HCl 2,000 mg/ (Sodium Chloride) 500 mls @ 167 mls/hr IVPB Q16H [facility] Last Admin: 03/27/21 23:30 Dose: 167 mls/hr Documented by: Insulin Aspart (Insulin Aspart (Novolog) 100 Unit/Ml Vial) 0 unit SQ ACHS [facility]; Protocol Last Admin: 03/28/21 12:17 Dose: Not Given Documented by: Insulin Detemir (Insulin Detemir (Levemir) 100 Unit/Ml Syr) 20 unit SQ BID [facility] Last Admin: 03/28/21 07:59 Dose: Not Given Documented by: Multivitamins (Multivitamins, Thera 1 Each Tab) 1 each PO [facility] Last Admin: 03/27/21 21:22 Dose: 1 each Documented by: Naloxone HCl (Naloxone 0.4 Mg/Ml 1 Ml Vial) 0.2 mg IV Q2M PRN PRN Reason: Opioid Reversal Nicotine (Nicotine 21mg/24hr Patch) 1 patch TRANSDERM DAILY [facility] Last Admin: 03/28/21 08:01 Dose: 1 patch Documented by: Pantoprazole Sodium (Pantoprazole 40 Mg Tablet) 40 mg PO [facility] Last Admin: 03/27/21 21:22 Dose: 40 mg Documented by: Tiotropium [place] (Tiotropium 2.5 Mcg Inhaler) 2 puff INHALATION RT-DAILY [facility] Last Admin: 03/28/21 08:56 Dose: 2 puff Documented by: Trazodone HCl (Trazodone Hcl 50 Mg Tab) 75 mg PO [facility] Last Admin: 03/27/21 21:22 Dose: 75 mg Documented by: Objective - Vital Signs Vital signs: Vital Signs Temp 98.0 F 03/28/21 07:20 Pulse 90 03/28/21 07:20 Resp 18 03/28/21 07:20 BP 105/69 03/28/21 07:20 Pulse Ox 94 L 03/28/21 07:20 Intake & Output 03/27/21 03/28/21 03/28/21 18:59 06:59 18:59 Output Total 350 Balance -350 Output: Urine 350 Other: # Voids 1 - Exam Patient is sitting up at the side of the bed, awake alert and oriented.. HEENT: Normocephalic. Neck is supple. Pupils reactive. Nostrils clear. Oral cav ity is moist. Neck reveals no JVD, carotid bruits, or thyromegaly. CHEST EXAMINATION: Trachea is central. Symmetrical expansion. Lung agee clear to auscultation and percussion. CARDIAC: Normal S1, S2 with no gallops. No murmurs ABDOMEN: Soft. abdominal dressing is intact with residual drainage noted on the dressing. Bowel sounds normal. No organomegaly. No abdominal bruits. Extremities: reveal no edema. No clubbing or cyanosis Neurologically awake, alert, oriented x3 with well-coordinated movements. No focal deficits noted Skin: No rash or skin lesions. Psychiatric: Cooperative. Non-suicidal Musculoskeletal: No joint swelling or deformity. Normal range of motion. - Labs CBC & Chem 7: 03/28/21 06:15 03/28/21 06:15 Labs: Abnormal Lab Results - Last 24 Hours (Table) 03/27/21 03/27/21 03/27/21 Range/Units 11:37 16:18 20:47 RBC (4.30-5.90) m/uL Hgb (13.0-17.5) gm/dL Hct (39.0-53.0) % RDW (11.5-15.5) % Chloride (98-107) mmol/L POC Glucose (mg/dL) 135 H 156 H 108 H (75-99) mg/dL 03/28/21 03/28/21 Range/Units 06:15 06:15 RBC 3.24 L (4.30-5.90) m/uL Hgb 9.6 L (13.0-17.5) gm/dL Hct 29.4 L (39.0-53.0) % RDW 17.7 H (11.5-15.5) % Chloride 108 H (98-107) mmol/L POC Glucose (mg/dL) (75-99) mg/dL Assessment and Plan Assessment: Right upper quadrant abdominal wall abscess and cellulitis and MRSA with failure of outpatient treatment. Diabetes type 2 uncontrolled with hyperglycemia Hyponatremia, improved Elevated ALT and alk phos Anemia of chronic disease Obesity with BMI 38.6 Asthma/COPD History of DVT GERD Hypertension Hyperlipidemia Type II sleep apnea History of open incisional hernia repair with infection previously. Dizziness Depression hx of smoking Full code Plan: Patient to continue with IV antibiotics in the form of vancomycin. Infectious disease following closely and has received a PICC line as patient will need IV antibiotic therapy in the outpatient setting. Case management working with daughter who will be providing care for him and arranging for home care in the outpatient setting. Plan is to return home with IV antibiotic therapy. Patient scheduled to undergo I&D of the abdominal wall today and will await surgical report. Surgery is following closely. Cultures to be obtained from I&D and will await culture finalization. Will continue to monitor closely. guarded prognosis.
[2021-03-28] MEDS: HYDROcodone/APAP 5-325MG 1 EACH TAB PO PRN ×2 (15:55→21:48)
[2021-03-28] MEDS: VANCOMYCIN 2,000 MG in SODIUM CHLORIDE 0.9% 500 ML 500 ML IVPB SCH (15:56)
[2021-03-28 16:51] LABS: Glucose,Whole Blood 206 mg/dL (75-99)
--- NOTE | 2021-03-28 16:59 | CDI ---
Documentation Clarification Form Date: 03/28/2021 04:53:11 PM From: Tina Avelar RN, CCDS Admit Date: 03/20/2021 02:33:00 PM Patient Name: Max Elizondo Visit Number: [id number] ATTENTION: The Clinical Documentation Specialists (CDI) and [facility] Coding Staff appreciate your assistance in clarifying documentation. Please respond to the clarification below the line at the bottom and electronically sign. The CDI & [facility] Coding staff will review the response and follow-up if needed. Please note: Queries are made part of the Legal Health Record. If you have any questions, please contact the author of this message via ITS. Dr. Guido Jacobson A debridement is documented [03/28/2021.Additional clarification regarding the procedure is requested. History/Risk Factors: Small bowel resection September 2020 for colon CA and infected hernia mesh removal, Asthma, COPD, GERD, HTN, Abdominal wall hematoma Clinical Indicators: 03/20 H&P: "being followed by Dr. Bond in the outpatient setting \\was noted to have a drainage area on the right side of the abdomen and culture was obtained which was found to be MRSA and the patient was directed to [facility] and admitted for further evaluation and treatment." Preoperative Diagnosis: Abdominal wall abscess Postoperative Diagnosis: Abdominal wall wound Treatment: 03/28 op Note: "Using a 15 blade a piece of tissue was sharply debrided into the pathology for wound culture." Please clarify the type of procedure performed: [ ] Excisional debridement (the removal of necrotic, devitalized tissue or slough by means of cutting away of tissue) [ xxx ] Non-excisional debridement (the removal of necrotic, devitalized tissue or slough by means of flushing, brushing, or washing. (Irrigation) [ ] Other; please specify [ ] Unable to determine Five elements required for accurate and compliant documentation of a debridement: Technique used (e.g., excisional, excised, cutting, brushing, jet lavage etc.) Instrument(s) used (e.g., scalpel, curette, etc.) Nature of the tissue removed (e.g., necrotic, devitalized tissues, non-viable tissue, etc.) Appearance and size of the wound (e.g., down to fresh bleeding tissue, 7cm x 10cm, etc.) Depth of the debridement* (e.g., skin, subcutaneous tissue, fascia, muscle, bone, etc.) (Template Last Revised: September 2020) MTDD
--- NOTE | 2021-03-28 18:31 | PN ---
PROGRESS NOTE DATE OF SERVICE: 03/28/2021 REASON FOR FOLLOWUP: Abdominal wall abscess. INTERVAL HISTORY: Patient was taken to the OR. The patient is status post drainage of the abscess. The patient tolerated the procedure. The patient denies any chest pain, shortness of breath or cough. No nausea, vomiting or diarrhea. PHYSICAL EXAMINATION: Blood pressure 112/66, pulse of 85, temperature 97.6, he is 93% on room air. General description is a middle-aged male lying in bed in no distress. Respiratory system: Unlabored breathing, is clear to auscultation anteriorly. Heart S1, S2. Regular rate and rhythm. Abdomen soft, no tenderness. Hemoglobin is 9.6 with a BUN of 6, creatinine 0.82. DIAGNOSTIC IMPRESSION AND PLAN: Patient with abdominal wall abscess seemed to have responded to the medical team in this patient status post drainage of this abscess. Patient to continue with vancomycin while waiting for the repeat culture to finalize and continue supportive care. MMODL / IJN: [id number] /
[2021-03-28 20:44] LABS: Glucose,Whole Blood 177 mg/dL (75-99)
[2021-03-28] MEDS: PANTOPRAZOLE 40 MG TABLET PO SCH (21:48)
[2021-03-28] MEDS: MULTIVITAMINS, THERA 1 EACH TAB PO SCH (21:48)
[2021-03-28] MEDS: ATORVASTATIN 80 MG TAB PO SCH (21:48)
[2021-03-28] MEDS: GLIMEPIRIDE 1 MG TAB PO SCH (21:48)
[2021-03-28] MEDS: traZODone HCL 50 MG TAB PO SCH (21:49)
[2021-03-28] MEDS: DULoxetine HCL 60 MG CAPSULE.DR PO SCH (21:49)
[2021-03-29 07:24] LABS: Glucose,Whole Blood 192 mg/dL (75-99)
[2021-03-29 08:01] LABS: African American GFR (CKD) >90 (>60 ml/min/1.73 sqM); Non-African American GFR(CKD) >90 (>60 ml/min/1.73 sqM)
[2021-03-29] MEDS: FERROUS SULFATE 325 MG TAB PO SCH ×2 (08:10→21:50)
[2021-03-29] MEDS: CALCIUM CARB-VIT D 500 MG-5 MCG TAB PO SCH (08:10)
[2021-03-29] MEDS: ASPIRIN 81 MG PO SCH (08:10)
[2021-03-29] MEDS: HYDROcodone/APAP 5-325MG 1 EACH TAB PO PRN (08:10)
[2021-03-29] MEDS: GABAPENTIN 300 MG CAP PO SCH ×3 (08:10→21:53)
[2021-03-29] MEDS: VANCOMYCIN 2,000 MG in SODIUM CHLORIDE 0.9% 500 ML 500 ML IVPB SCH (08:12)
[2021-03-29] MEDS: INSULIN ASPART (NovoLOG) 100 UNIT/ML VIAL SQ SCH ×4 (08:13→21:49)
[2021-03-29] MEDS: NICOTINE 21MG/24HR PATCH TRANSDERM SCH (08:13)
[2021-03-29] MEDS: INSULIN DETEMIR (LEVEMIR) 100 UNIT/ML SYR SQ SCH ×2 (08:14→21:49)
[2021-03-29] MEDS: ALBUTEROL HFA INHALER INHALATION PRN ×2 (08:50→20:03)
[2021-03-29] MEDS: TIOTROPIUM 2.5 MCG INHALER INHALATION SCH (08:50)
[2021-03-29 11:33] LABS: Glucose,Whole Blood 136 mg/dL (75-99)
[2021-03-29] MEDS: HYDROcodone/APAP 7.5-325MG 1 EACH TAB PO PRN ×2 (13:21→21:50)
--- NOTE | 2021-03-29 14:17 | P.PN ---
Subjective Progress Note Date: 03/29/21 Patient is a 60-year-old male was admitted to hospital with right upper quadrant abdominal pain and has evidence of MRSA infection. Patient still having persistent drainage. Wound is packed at this time. General surgery and ID is on board. 03/26/2021 Patient is currently resting in the bed. Awake alert 1x3. No complaints of abdominal pain. Continued on antibiotics at home vancomycin. Patient has been afebrile. Wound culture showed polymicrobial species. No headache or dizziness or lightheadedness. Wound is packed. No nausea vomiting abdominal pain or diarrhea. 03/27/2021 Patient is seen and examined in follow-up status post computed tomography scan of the abdomen showing a suboptimal study as the contrast has not reached the level of the terminal ileum making evaluation of distal bowel suboptimal although there is more prominence of the anterior right mid abdominal findings suggesting infectious progression that is increasing in size and deeper thin- walled fluid collection noted with possible fistulous communication to the skin being present recommending surgical debridement and/or treatment. Surgery is following and awaiting and appreciate input. Patient is scheduled to receive a PICC line today with infectious disease following closely and patient is maintained on IV vancomycin and will continue. Patient continues on sliding scale along with long-acting and oral anti-diabetic's and will continue to monitor sugars closely. 03/28/2021 Patient is seen in follow-up this morning currently nothing by mouth as patient is scheduled for I&D with surgery of the abdomen today. Will await surgical report. Patient right side abdominal dressing shows continued drainage and currently intact as patient is awaiting surgery. Surgery and infectious disease following. Patient is continued on IV vancomycin and has received a PICC line and will likely require outpatient IV antibiotic therapy. Will discuss with infectious disease about this and discharge planning. Cultures are being obtained from surgery today and will await finalization to determine discharge antibiotics. White blood count is 6.6 and patient is afebrile. Hemoglobin is 9.6, sodium is 138 with a potassium of 3.8 and current creatinine is 0.82. Long-acting insulin was held as patient is nothing by mouth and blood sugars are controlled at this time. Will resume current medication regimen once diet is restarted. 03/29/2021 Patient is seen and examined in follow-up today status post I&D of the abdominal wall with surgery yesterday. Patient continues with drainage and frequent dressing changes and is maintained on IV antibiotics in the form of vancomycin. Infectious disease following closely. Deep tissue cultures obtained is awaiting for finalization to determine discharge antibiotics. Patient does have a PICC line and will likely require IV antibiotic therapy. Patient is having some abdominal wall discomfort and will increase the dose of [place]. Creatinine 0.8 to today. Will repeat a.m. labs. Constitutional: Patient denies any fever or chills. No generalized weakness or weight loss. Abdomen: Patient denied nausea vomiting and diarrhea, reports right side abdominal wall pain. Cardiovascular: Patient denies any chest pain or short of breath no palpitations. Respiratory: patient denied any cough or sputum production. No shortness of breath Neurologic: Patient denied any numbness or tingling headache. Musculoskeletal: Patient denies any complaints of joint swelling or deformity. Active Medications Acetaminophen (Acetaminophen Tab 325 Mg Tab) 650 mg PO Q6HR PRN PRN Reason: Mild Pain or Fever > 100.5 Hydrocodone Bitart/Acetaminophen (Hydrocodone/Apap 7.5-325mg 1 Each Tab) 1 each PO Q6HR PRN PRN Reason: Pain Last Admin: 03/29/21 13:21 Dose: 1 each Documented by: Albuterol Sulfate (Albuterol Hfa Inhaler) 2 puff INHALATION RT-Q6H PRN PRN Reason: Shortness Of Breath Last Admin: 03/29/21 08:50 Dose: 2 puff Documented by: Aspirin (Aspirin 81 Mg) 81 mg PO DAILY [facility] Last Admin: 03/29/21 08:10 Dose: 81 mg Documented by: Atorvastatin Calcium (Atorvastatin 80 Mg Tab) 80 mg PO [facility] Last Admin: 03/28/21 21:48 Dose: 80 mg Documented by: Calcium Carbonate (Calcium Carb-Vit D 500 Mg-5 Mcg Tab) 2 each PO DAILY [facility] Last Admin: 03/29/21 08:10 Dose: 2 each Documented by: Duloxetine HCl (Duloxetine Hcl 60 Mg Capsule.Dr) 60 mg PO [facility] Last Admin: 03/28/21 21:49 Dose: 60 mg Documented by: Ferrous Sulfate (Ferrous Sulfate 325 Mg Tab) 325 mg PO BID [facility] Last Admin: 03/29/21 08:10 Dose: 325 mg Documented by: Gabapentin (Gabapentin 300 Mg Cap) 300 mg PO TID [facility] Last Admin: 03/29/21 08:10 Dose: 300 mg Documented by: Glimepiride (Glimepiride 1 Mg Tab) 1 mg PO [facility] Last Admin: 03/28/21 21:48 Dose: 1 mg Documented by: Vancomycin HCl 2,000 mg/ (Sodium Chloride) 500 mls @ 167 mls/hr IVPB Q16H [facility] Last Admin: 03/29/21 08:12 Dose: 167 mls/hr Documented by: Insulin Aspart (Insulin Aspart (Novolog) 100 Unit/Ml Vial) 0 unit SQ ACHS [facility]; Protocol Last Admin: 03/29/21 12:06 Dose: 1 unit Documented by: Insulin Detemir (Insulin Detemir (Levemir) 100 Unit/Ml Syr) 20 unit SQ BID [facility] Last Admin: 03/29/21 08:14 Dose: 20 unit Documented by: Multivitamins (Multivitamins, Thera 1 Each Tab) 1 each PO [facility] Last Admin: 03/28/21 21:48 Dose: 1 each Documented by: Naloxone HCl (Naloxone 0.4 Mg/Ml 1 Ml Vial) 0.2 mg IV Q2M PRN PRN Reason: Opioid Reversal Nicotine (Nicotine 21mg/24hr Patch) 1 patch TRANSDERM DAILY [facility] Last Admin: 03/29/21 08:13 Dose: 1 patch Documented by: Pantoprazole Sodium (Pantoprazole 40 Mg Tablet) 40 mg PO [facility] Last Admin: 03/28/21 21:48 Dose: 40 mg Documented by: Tiotropium [place] (Tiotropium 2.5 Mcg Inhaler) 2 puff INHALATION RT-DAILY [facility] Last Admin: 03/29/21 08:50 Dose: 2 puff Documented by: Trazodone HCl (Trazodone Hcl 50 Mg Tab) 75 mg PO [facility] Last Admin: 03/28/21 21:49 Dose: 75 mg Documented by: Objective - Vital Signs Vital signs: Vital Signs Temp 96.6 F L 03/29/21 08:00 Pulse 94 03/29/21 08:00 Resp 18 03/29/21 08:00 BP 124/62 03/29/21 08:00 Pulse Ox 94 L 03/29/21 08:00 Intake & Output 03/28/21 03/29/21 03/29/21 18:59 06:59 18:59 Intake Total 1000 480 Output Total 625 Balance 375 480 Intake: IV 600 Oral 400 480 Output: Urine 600 Estimated Blood Loss 25 Other: Voiding Method Toilet Urinal # Voids 1 3 # Bowel Movements 1 - Exam Patient is sitting up at the side of the bed, awake alert and oriented.. HEENT: Normocephalic. Neck is supple. Pupils reactive. Nostrils clear. Oral cavity is moist. Neck reveals no JVD, carotid bruits, or thyromegaly. CHEST EXAMINATION: Trachea is central. Symmetrical expansion. Lung agee clear to auscultation and percussion. CARDIAC: Normal S1, S2 with no gallops. No murmurs ABDOMEN: Soft. abdominal dressing is intact with continued drainage noted on the dressing. Bowel sounds normal. No organomegaly. No abdominal bruits. Extremities: reveal no edema. No clubbing or cyanosis Neurologically awake, alert, oriented x3 with well-coordinated movements. No focal deficits noted Skin: No rash or skin lesions. Psychiatric: Cooperative. Non-suicidal Musculoskeletal: No joint swelling or deformity. Normal range of motion. - Labs CBC & Chem 7: 03/28/21 06:15 03/29/21 06:49 Labs: Abnormal Lab Results - Last 24 Hours (Table) 03/28/21 03/28/21 03/28/21 Range/Units 12:47 16:50 20:42 POC Glucose (mg/dL) 101 H 206 H 177 H (75-99) mg/dL 03/29/21 Range/Units 07:22 POC Glucose (mg/dL) 192 H (75-99) mg/dL Assessment and Plan Assessment: Right upper quadrant abdominal wall abscess and cellulitis and MRSA with failure of outpatient treatment. Diabetes type 2 uncontrolled with hyperglycemia Hyponatremia, improved Elevated ALT and alk phos Anemia of chronic disease Obesity with BMI 38.6 Asthma/COPD History of DVT GERD Hypertension Hyperlipidemia Type II sleep apnea History of open incisional hernia repair with infection previously. Dizziness Depression hx of smoking Full code Plan: Patient to continue with IV antibiotics in the form of vancomycin. Infectious disease following closely and has received a PICC line as patient will need IV antibiotic therapy in the outpatient setting. Case management working with daughter who will be providing care for him and arranging for home care in the outpatient setting. Plan is to return home with IV antibiotic therapy. Patient underwent I&D of the abdominal wall and awaiting for cultures from that to finalize. Surgery is following closely. Will repeat a.m. labs. Will continue to monitor closely. guarded prognosis.
[2021-03-29] MEDS ORDERED: KETOROLAC 15 MG/ML 1 ML VIAL IVP PRN (14:39)
[2021-03-29] MEDS ORDERED: MORPHINE SULFATE 2 MG/ML SYRINGE IVP PRN (14:41)
--- NOTE | 2021-03-29 14:41 | P.PN ---
Subjective Progress Note Date: 03/29/21 CHIEF COMPLAINT: Abdominal wound infection HISTORY OF PRESENT ILLNESS: Patient being followed for his abdominal wound infection. Patient is status post I&D. Patient complains of minimal pain at incision site. Denies any nausea or vomiting. There has been serosanguineous drainage from wound. Dressings changed by nursing staff. Continue regular diet PHYSICAL EXAM: VITAL SIGNS: Reviewed. GENERAL: Well-developed in no acute distress. HEENT: No sclera icterus. Extraocular movements grossly intact. Moist buccal mucosa. Head is atraumatic, normocephalic. ABDOMEN: Soft. Nondistended. Nontender. No cellulitis noted. Dressing with serosanguineous drainage. NEUROLOGIC: Alert and oriented. Cranial nerves II through XII grossly intact. ASSESSMENT: 1. Abdominal wound infection status post incision, drainage and debridement PLAN: -Pack wound with Aquacel silver dressing. Change dressing daily. Cover with ABD dressing -Continue antibiotics per ID -Continue supportive care [facility] note has been reviewed by physician. Signing provider agrees with the documented findings, assessment, and plan of care. Objective - Vital Signs Vital signs: Vital Signs Temp 100.3 F H 03/29/21 14:00 Pulse 85 03/29/21 14:00 Resp 16 03/29/21 14:00 BP 108/69 03/29/21 14:00 Pulse Ox 93 L 03/29/21 14:00 Intake & Output 03/28/21 03/29/21 03/29/21 18:59 06:59 18:59 Intake Total 1000 480 150 Output Total 625 Balance 375 480 150 Intake: IV 600 Oral 400 480 150 Output: Urine 600 Estimated Blood Loss 25 Other: Voiding Method Toilet Toilet Urinal Urinal # Voids 1 3 # Bowel Movements 1 - Labs CBC & Chem 7: 03/28/21 06:15 03/29/21 06:49 Labs: Abnormal Lab Results - Last 24 Hours (Table) 03/28/21 03/28/21 03/29/21 Range/Units 16:50 20:42 07:22 POC Glucose (mg/dL) 206 H 177 H 192 H (75-99) mg/dL 03/29/21 Range/Units 11:31 POC Glucose (mg/dL) 136 H (75-99) mg/dL
[2021-03-29] MEDS ORDERED: ACETAMINOPHEN IV (For NPO) 1,000 MG in EMPTY BAG 1 BAG IVPB ONE (15:00)
[2021-03-29 16:44] LABS: Glucose,Whole Blood 107 mg/dL (75-99)
[2021-03-29 21:09] LABS: Glucose,Whole Blood 153 mg/dL (75-99)
[2021-03-29] MEDS: DULoxetine HCL 60 MG CAPSULE.DR PO SCH (21:49)
[2021-03-29] MEDS: traZODone HCL 50 MG TAB PO SCH (21:49)
[2021-03-29] MEDS: MULTIVITAMINS, THERA 1 EACH TAB PO SCH (21:50)
[2021-03-29] MEDS: GLIMEPIRIDE 1 MG TAB PO SCH (21:50)
[2021-03-29] MEDS: PANTOPRAZOLE 40 MG TABLET PO SCH (21:51)
[2021-03-29] MEDS: ATORVASTATIN 80 MG TAB PO SCH (21:53)
[2021-03-30] MEDS: VANCOMYCIN 2,000 MG in SODIUM CHLORIDE 0.9% 500 ML 500 ML IVPB SCH ×2 (00:05→14:01)
[2021-03-30 01:32] VITALS: RESP 18
[2021-03-30] MEDS: HYDROcodone/APAP 7.5-325MG 1 EACH TAB PO PRN ×2 (04:44→16:45)
[2021-03-30 07:29] LABS: Glucose,Whole Blood 108 mg/dL (75-99)
[2021-03-30 08:00] LABS: Anisocytosis Slight; Basophils % (A) 1 %; Eosinophils # (A) 0.2 k/uL (0-0.7); Eosinophils % (A) 4 %; HGB 10.2 gm/dL (13.0-17.5); Lymphocytes # (A) 1.1 k/uL (1.0-4.8); Lymphocytes % (A) 20 %; MCH 29.9 pg (25.0-35.0); MCHC 32.8 g/dL (31.0-37.0); MCV 91.1 fL (80.0-100.0); Mean Platelet Volume 6.9; Monocytes # (A) 0.2 k/uL (0-1.0); Monocytes % (A) 5 %; Neutrophils # (A) 3.8 k/uL (1.3-7.7); Neutrophils % (A) 70 %; Platelet Count 284 k/uL (150-450); WBC 5.4 k/uL (3.8-10.6)
[2021-03-30] MEDS: INSULIN ASPART (NovoLOG) 100 UNIT/ML VIAL SQ SCH ×3 (08:00→16:46)
[2021-03-30] MEDS: GABAPENTIN 300 MG CAP PO SCH ×2 (08:05→16:45)
[2021-03-30] MEDS: NICOTINE 21MG/24HR PATCH TRANSDERM SCH (08:05)
[2021-03-30] MEDS: FERROUS SULFATE 325 MG TAB PO SCH (08:05)
[2021-03-30] MEDS: ASPIRIN 81 MG PO SCH (08:05)
[2021-03-30] MEDS: INSULIN DETEMIR (LEVEMIR) 100 UNIT/ML SYR SQ SCH (08:05)
[2021-03-30] MEDS: CALCIUM CARB-VIT D 500 MG-5 MCG TAB PO SCH (08:05)
[2021-03-30 08:13] LABS: African American GFR (CKD) >90 (>60 ml/min/1.73 sqM); Anion Gap 5 mmol/L; Blood Urea Nitrogen 14 mg/dL (9-20); Calcium 8.9 mg/dL (8.4-10.2); Carbon Dioxide 27 mmol/L (22-30); Chloride 107 mmol/L (98-107); Glucose 103 mg/dL (74-99); Non-African American GFR(CKD) >90 (>60 ml/min/1.73 sqM); Potassium 3.8 mmol/L (3.5-5.1); Sodium 139 mmol/L (137-145)
[2021-03-30 08:42] VITALS: BP 105/67; TEMP 97.5
[2021-03-30] MEDS: ALBUTEROL HFA INHALER INHALATION PRN (09:11)
[2021-03-30] MEDS: TIOTROPIUM 2.5 MCG INHALER INHALATION SCH (09:11)
[2021-03-30 10:13] VITALS: PULSE 85
[2021-03-30 11:29] LABS: Glucose,Whole Blood 121 mg/dL (75-99)
--- NOTE | 2021-03-30 12:00 | P.PN ---
Subjective Progress Note Date: 03/30/21 CHIEF COMPLAINT: Abdominal wound infection HISTORY OF PRESENT ILLNESS: Patient being followed for his abdominal wound infection. Patient is status post I&D. Patient complains of minimal pain at incision site. Denies any nausea or vomiting. There is drainage from wound. Dressings changed by nursing staff. Continue regular diet patient did have a temp of 100.3 yesterday afternoon. WBC 5.4 hemoglobin 10.2 PHYSICAL EXAM: VITAL SIGNS: Reviewed. GENERAL: Well-developed in no acute distress. HEENT: No sclera icterus. Extraocular movements grossly intact. Moist buccal mucosa. Head is atraumatic, normocephalic. ABDOMEN: Soft. Nondistended. Nontender. No cellulitis noted. Minimal erythema noted around the edges of the wound. Dressing with serosanguineous and yellowish drainage. NEUROLOGIC: Alert and oriented. Cranial nerves II through XII grossly intact. ASSESSMENT: 1. Abdominal wound infection status post incision, drainage and debridement PLAN: -Pack wound with Aquacel silver dressing. Change dressing daily. Cover with ABD dressing -Continue antibiotics per ID -Continue supportive care -Patient can be discharged from surgical standpoint. He is to continue the local wound care at home. He will have wound vac placed outpatient with Dr. Jacobson. Physician Supervisor Sanding note has been reviewed by physician. Signing provider agrees with the documented findings, assessment, and plan of care. Objective - Vital Signs Vital signs: Vital Signs Temp 97.5 F L 03/30/21 08:00 Pulse 86 03/30/21 08:00 Resp 18 03/30/21 08:00 BP 105/67 03/30/21 08:00 Pulse Ox 95 03/30/21 08:00 Intake & Output 03/29/21 03/30/21 03/30/21 18:59 06:59 18:59 Intake Total 400 980 480 Output Total 400 600 Balance 0 380 480 Intake: Intake, IV Titration 500 Amount Vancomycin 2,000 mg In 500 Sodium Chloride 0.9% 500 ml 500 ml @ 167 mls/hr IVPB Q16H [facility] Rx#: [id number] Oral 400 480 480 Output: Urine 400 600 Other: Voiding Method Toilet Urinal # Voids 4 - Labs CBC & Chem 7: 03/30/21 07:43 03/30/21 07:43 Labs: Abnormal Lab Results - Last 24 Hours (Table) 03/29/21 03/29/21 03/30/21 Range/Units 16:42 21:07 07:28 RBC (4.30-5.90) m/uL Hgb (13.0-17.5) gm/dL Hct (39.0-53.0) % RDW (11.5-15.5) % Glucose (74-99) mg/dL POC Glucose (mg/dL) 107 H 153 H 108 H (75-99) mg/dL 03/30/21 03/30/21 03/30/21 Range/Units 07:43 07:43 11:28 RBC 3.40 L (4.30-5.90) m/uL Hgb 10.2 L (13.0-17.5) gm/dL Hct 31.0 L (39.0-53.0) % RDW 18.0 H (11.5-15.5) % Glucose 103 H (74-99) mg/dL POC Glucose (mg/dL) 121 H (75-99) mg/dL
--- NOTE | 2021-03-30 14:54 | P.DS ---
Providers Date of admission: 03/20/21 14:33 Expected date of discharge: 03/30/21 Attending physician: Mara Rayo Consults: 03/20/21 14:32 Consult Physician Stat Consulting Provider: Radha Lehman Consult Reason/Comments: MRSA Do you want consulting provider notified?: Yes 03/20/21 16:04 Consult Physician Routine Consulting Provider: Guido Jacobson Consult Reason/Comments: abd wall infection Do you want consulting provider notified?: Yes Primary care physician: Izaiah Garcia Hospital Course: Final diagnosis Right upper quadrant abdominal wall abscess and cellulitis and MRSA with failure of outpatient treatment. Diabetes type 2 uncontrolled with hyperglycemia Hyponatremia, improved Elevated ALT and alk phos Anemia of chronic disease Obesity with BMI 38.6 Asthma/COPD History of DVT GERD Hypertension Hyperlipidemia Type II sleep apnea History of open incisional hernia repair with infection previously. Dizziness Depression hx of smoking Full code Discharge disposition Patient is being discharged in a stable condition with guarded prognosis to home. Patient will follow-up with Dr. Garcia in the outpatient setting upon discharge. Patient is also to follow-up with surgery along with the wound care center and continue with home care in the outpatient setting. Patient is to continue with the antibiotics in the form of vancomycin with close outpatient follow-up. Total time taken is greater than 35 minutes. Hospital course Patient is a 60-year-old male was admitted to hospital with right upper quadrant abdominal pain and has evidence of MRSA infection. Patient still having persistent drainage. Wound is packed at this time. General surgery and ID is on board. 03/26/2021 Patient is currently resting in the bed. Awake alert 1x3. No complaints of abdominal pain. Continued on antibiotics at home vancomycin. Patient has been afebrile. Wound culture showed polymicrobial species. No headache or dizziness or lightheadedness. Wound is packed. No nausea vomiting abdominal pain or diarrhea. 03/27/2021 Patient is seen and examined in follow-up status post computed tomography scan of the abdomen showing a suboptimal study as the contrast has not reached the level of the terminal ileum making evaluation of distal bowel suboptimal although there is more prominence of the anterior right mid abdominal findings suggesting infectious progression that is increasing in size and deeper thin- walled fluid collection noted with possible fistulous communication to the skin being present recommending surgical debridement and/or treatment. Surgery is following and awaiting and appreciate input. Patient is scheduled to receive a PICC line today with infectious disease following closely and patient is maintained on IV vancomycin and will continue. Patient continues on sliding scale along with long-acting and oral anti-diabetic's and will continue to monitor sugars closely. 03/28/2021 Patient is seen in follow-up this morning currently nothing by mouth as patient is scheduled for I&D with surgery of the abdomen today. Will await surgical report. Patient right side abdominal dressing shows continued drainage and currently intact as patient is awaiting surgery. Surgery and infectious disease following. Patient is continued on IV vancomycin and has received a PICC line and will likely require outpatient IV antibiotic therapy. Will discuss with infectious disease about this and discharge planning. Cultures are being obtained from surgery today and will await finalization to determine discharge antibiotics. White blood count is 6.6 and patient is afebrile. Hemoglobin is 9.6, sodium is 138 with a potassium of 3.8 and current creatinine is 0.82. Long-acting insulin was held as patient is nothing by mouth and blood sugars are controlled at this time. Will resume current medication regimen once diet is restarted. 03/29/2021 Patient is seen and examined in follow-up today status post I&D of the abdominal wall with surgery yesterday. Patient continues with drainage and frequent dressing changes and is maintained on IV antibiotics in the form of vancomycin. Infectious disease following closely. Deep tissue cultures obtained is awaiting for finalization to determine discharge antibiotics. Patient does have a PICC line and will likely require IV antibiotic therapy. Patient is having some abdominal wall discomfort and will increase the dose of [place]. Creatinine 0.8 to today. Will repeat a.m. labs. 03/30/2021 Patient is seen in follow-up this morning with no acute overnight issues. Patient continues with drainage of the right abdominal wall and will continue with wound care daily with Aquacel rope and dressing changes daily with continued home care in the outpatient setting and follow-up with surgery along with the wound care center for possible wound VAC placement in 1 week at follow- up. Patient has received a PICC line and will continue on IV antibiotic therapy in the form of vancomycin. Currently no reports of chest pain, shortness of breath, or palpitations. Patient is afebrile. No reports of nausea or vomiting and patient is tolerating diet. Patient will be discharged home today. Guarded prognosis. On exam vital signs are stable. Cardio S1, S2 are muffled. Respiratory system shows diminished breath sounds at the bases with no wheezing or rhonchi noted. Abdomen is soft and obese, and nontender. Nervous system shows no focal deficits. Please refer to medication reconciliation sheet for a list of medications. Patient Condition at Discharge: Fair Plan - Discharge Summary Discharge Rx Participant: No New Discharge Prescriptions: New Acetaminophen Tab [Tylenol] 650 mg PO Q6HR PRN #30 tab PRN Reason: Mild Pain Or Fever > 100.5 Nicotine 21Mg/24Hr Patch [Habitrol] 1 patch TRANSDERM DAILY #20 patch HYDROcodone/APAP 7.5-325MG [[place] 7.5-325] 1 each PO Q6HR PRN #12 tab PRN Reason: Pain Continue DULoxetine HCL [Cymbalta] 60 mg PO HS Glimepiride [Amaryl] 1 mg PO HS Omeprazole [PriLOSEC] 40 mg PO HS traZODone HCL 75 mg PO HS Atorvastatin [Lipitor] 80 mg PO HS Albuterol Sulfate [Proair Hfa] 2 puff INHALATION RT-Q6H PRN PRN Reason: Shortness Of Breath Tiotropium [place] [Spiriva Respimat] 2 puff INHALATION RT-DAILY Gabapentin [Neurontin] 300 mg PO TID Multivitamins, Thera [Multivitamin (formulary)] 1 tab PO HS Calcium Carbonate/Vitamin D3 [Calcium 600-Vit D3 10 mcg (400 Iu)] 2 tab PO D AILY Ferrous Sulfate [Iron (65 MG Elemental)] 325 mg PO BID Aspirin EC [Ecotrin Low Dose] 81 mg PO DAILY Discontinued Sulfamethox-Tmp 800-160Mg [Bactrim DS 800-160 mg] 1 tab PO Q12HR Discharge Medication List DULoxetine HCL [Cymbalta] 60 mg PO HS 10/08/17 [History] Glimepiride [Amaryl] 1 mg PO HS 11/20/18 [History] Omeprazole [PriLOSEC] 40 mg PO HS 11/20/18 [History] traZODone HCL 75 mg PO HS 11/20/18 [History] Atorvastatin [Lipitor] 80 mg PO HS 07/07/19 [History] Albuterol Sulfate [Proair Hfa] 2 puff INHALATION RT-Q6H PRN 04/30/20 [History] Gabapentin [Neurontin] 300 mg PO TID 09/29/20 [History] Tiotropium [place] [Spiriva Respimat] 2 puff INHALATION RT-DAILY 09/29/20 [History] Calcium Carbonate/Vitamin D3 [Calcium 600-Vit D3 10 mcg (400 Iu)] 2 tab PO DAILY 11/14/20 [History] Ferrous Sulfate [Iron (65 MG Elemental)] 325 mg PO BID 11/14/20 [History] Multivitamins, Thera [Multivitamin (formulary)] 1 tab PO HS 11/14/20 [History] Aspirin EC [Ecotrin Low Dose] 81 mg PO DAILY 02/20/21 [History] Acetaminophen Tab [Tylenol] 650 mg PO Q6HR PRN #30 tab 03/30/21 [Rx] HYDROcodone/APAP 7.5-325MG [[place] 7.5-325] 1 each PO Q6HR PRN #12 tab 03/30/21 [Rx] Nicotine 21Mg/24Hr Patch [Habitrol] 1 patch TRANSDERM DAILY #20 patch 03/30/21 [Rx] Follow up Appointment(s)/Referral(s): [facility], [NON-STAFF] - As Needed Izaiah Garcia DO [Primary Care Provider] - 1-2 days Guido Jacobson MD [STAFF PHYSICIAN] - 1 Week [facility] [NON-STAFF] - 1 Week (had 03/29 appt needs a new appt for one week) Activity/Diet/Wound Care/Special Instructions: Activity Limited until follow-up Follow-up with primary care provider upon discharge Follow-up surgery outpatient in one week Follow-up with wound care center in 1 week Continue heart healthy diabetic diet Continue with home care Continue with wound packing with Aquacel silver rope and change daily [employer] will deliver the wound vac to patient's home on 04/02/21. Their number is [phone]. Call with questions regarding your wound vac. [facility] will put it on patient once delivered. Discharge Disposition: HOME WITH HOME HEALTH SERVICES
[2021-03-30 16:47] LABS: Glucose,Whole Blood 141 mg/dL (75-99)
--- NOTE | 2021-03-30 17:17 | PN ---
PROGRESS NOTE DATE OF SERVICE: 03/30/2021 REASON FOR FOLLOWUP: Abdominal wall abscess, MRSA. INTERVAL HISTORY: The patient is afebrile. The patient is feeling better, breathing comfortably. Overall abdominal pain and discomfort has decreased. No chest pain, shortness of breath or cough. No diarrhea. PHYSICAL EXAMINATION: Blood pressure 105/67, pulse of 86, temperature 97.5. He is 95% on room air. GENERAL DESCRIPTION: General description is a middle-aged male lying in bed in no distress. RESPIRATORY SYSTEM: Unlabored breathing. Clear to auscultation anteriorly. HEART: S1, S2. Regular rate and rhythm. ABDOMEN: Soft. Abdominal wound is currently packed. Surrounding swelling and redness has decreased. LABS: Hemoglobin is 10.2, white count 5.4, BUN of 14, creatinine 0.90. DIAGNOSTIC IMPRESSION AND PLAN: Patient with abdominal wall abscess, status post drainage. Culture with MRSA. Plan is for vancomycin, Pharmacy to dose, for 2-3 weeks . Local wound care with a wound V.A.C. Plan for the outpatient wound V.A.C. arrangement. Case was discussed with the surgeon. MMODL / IJN: [id number] /
== END 2021-03-30 18:51 | disposition home health service (06) | DRG 919 ==
LOC: EC 12:34 → 4SSUR 14:33
PROVIDERS: ADMIT Hospitalist; ATTEND Hospitalist
PROC: 02HV33Z Insertion of Infusion Device into Superior Vena Cava, Percutaneous Approach (ICD-10-PCS; 2021-03-27)
PROC: 0JD83ZZ Extraction of Abdomen Subcutaneous Tissue and Fascia, Percutaneous Approach (ICD-10-PCS; principal; 2021-03-28 07:30)
DX: T85.79XA Infection and inflammatory reaction due to other internal prosthetic devices, implants and grafts, initial encounter (principal); K65.1 Peritoneal abscess; E87.1 Hypo-osmolality and hyponatremia; L98.495 Non-pressure chronic ulcer of skin of other sites with muscle involvement without evidence of necrosis; L03.311 Cellulitis of abdominal wall; K91.872 Postprocedural seroma of a digestive system organ or structure following a digestive system procedure; B95.62 Methicillin resistant Staphylococcus aureus infection as the cause of diseases classified elsewhere; E11.622 Type 2 diabetes mellitus with other skin ulcer; E11.65 Type 2 diabetes mellitus with hyperglycemia; E78.5 Hyperlipidemia, unspecified; D63.8 Anemia in other chronic diseases classified elsewhere; I10 Essential (primary) hypertension; J44.9 Chronic obstructive pulmonary disease, unspecified; K21.9 Gastro-esophageal reflux disease without esophagitis; F41.9 Anxiety disorder, unspecified; F32.9 Major depressive disorder, single episode, unspecified; F17.200 Nicotine dependence, unspecified, uncomplicated; L98.492 Non-pressure chronic ulcer of skin of other sites with fat layer exposed; E66.9 Obesity, unspecified; Z68.38 Body mass index [BMI] 38.0-38.9, adult; Z79.01 Long term (current) use of anticoagulants; Z79.2 Long term (current) use of antibiotics; Z79.82 Long term (current) use of aspirin; Z79.84 Long term (current) use of oral hypoglycemic drugs; Z79.899 Other long term (current) drug therapy; Z82.49 Family history of ischemic heart disease and other diseases of the circulatory system; Z83.3 Family history of diabetes mellitus; Z85.038 Personal history of other malignant neoplasm of large intestine; Z86.14 Personal history of Methicillin resistant Staphylococcus aureus infection; Z86.718 Personal history of other venous thrombosis and embolism; Z87.442 Personal history of urinary calculi; Z90.49 Acquired absence of other specified parts of digestive tract; Z96.643 Presence of artificial hip joint, bilateral; G47.30 Sleep apnea, unspecified; Y83.8 Other surgical procedures as the cause of abnormal reaction of the patient, or of later complication, without mention of misadventure at the time of the procedure
CPT/HCPCS: 36415; 36573; 74176; 74177; 80048; 80053; 80202; 81003; 82565; 83036; 85025; 87040; 87070; 87075; 87205; 88304; 94640; 99284

== ENCOUNTER 2021-04-22 14:10 | Observation (INO) | payer MEDICARE ==
[2021-04-22] MEDS ORDERED: diphenhydrAMINE 50 MG/ML 1 ML VIAL IVP STA (15:14)
--- NOTE | 2021-04-22 16:41 | CT ---
EXAMINATION TYPE: CT brain wo con DATE OF EXAM: 04/22/2021 COMPARISON: None HISTORY: neuro deficit, left side weakness CT DLP: 1103.4 mGycm Automated exposure control for dose reduction was used. There is mild cerebral atrophy. There is no mass effect nor midline shift. There is no sign of intrac ranial hemorrhage. The calvarium is intact. There is limited pneumatization of the right mastoid sinu s. Skull base is intact. IMPRESSION: Mild atrophy. No acute intracranial abnormality. Right-sided mastoiditis.
[2021-04-22 17:00] LABS: Anisocytosis Slight; Basophils # (A) 0.1 k/uL (0-0.2); Basophils % (A) 1 %; Eosinophils # (A) 0.3 k/uL (0-0.7); Eosinophils % (A) 5 %; HCT 39.4 % (39.0-53.0); HGB 12.5 gm/dL (13.0-17.5); Lymphocytes # (A) 1.1 k/uL (1.0-4.8); Lymphocytes % (A) 20 %; MCHC 31.8 g/dL (31.0-37.0); MCV 94.6 fL (80.0-100.0); Macrocytosis Slight; Monocytes # (A) 0.2 k/uL (0-1.0); Monocytes % (A) 4 %; Neutrophils # (A) 3.9 k/uL (1.3-7.7); Neutrophils % (A) 69 %; Platelet Count 250 k/uL (150-450); RBC 4.17 m/uL (4.30-5.90); RDW 18.6 % (11.5-15.5); WBC 5.7 k/uL (3.8-10.6)
[2021-04-22 17:06] LABS: ALT 18 U/L (4-49); AST 22 U/L (17-59); African American GFR (CKD) >90 (>60 ml/min/1.73 sqM); Albumin 3.8 g/dL (3.5-5.0); Alkaline Phosphatase 105 U/L (38-126); Anion Gap 8 mmol/L; Blood Urea Nitrogen 8 mg/dL (9-20); Calcium 8.9 mg/dL (8.4-10.2); Carbon Dioxide 24 mmol/L (22-30); Chloride 106 mmol/L (98-107); Glucose 137 mg/dL (74-99); Non-African American GFR(CKD) >90 (>60 ml/min/1.73 sqM); Sodium 138 mmol/L (137-145); Total Bilirubin 0.4 mg/dL (0.2-1.3); Total Protein 6.9 g/dL (6.3-8.2)
[2021-04-22 17:11] LABS: INR 0.9 (<1.2); Partial Thromboplastin Time 22.1 sec (22.0-30.0)
--- NOTE | 2021-04-22 17:41 | XR ---
EXAMINATION TYPE: XR chest 2V DATE OF EXAM: 04/22/2021 COMPARISON: 02/20/2021 HISTORY: Leg edema TECHNIQUE: 2 views FINDINGS: Heart and mediastinum are normal. Lungs are clear. Diaphragm is normal. Bony thorax is inta ct. Pulmonary vascularity is normal. IMPRESSION: No active cardiopulmonary disease. Normal heart. No change.
--- NOTE | 2021-04-22 17:52 | ED ---
General Adult HPI - General Chief complaint: Neuro Symptoms/Deficit Stated complaint: bilat leg swelling, confusion Time Seen by Provider: 04/22/21 14:57 Source: patient, family Mode of arrival: wheelchair Limitations: altered mental status, physical limitation - History of Present Illness Initial comments: 60-year-old male patient with past history significant for hypertension and Type II diabetes, current smoker, presents to the emergency department today for evaluation after having an episode of acute confusion, speech disturbance, left- sided weakness. Symptoms lasted for approximately one hour and then fully resolved. He is currently being treated at home with wound VAC and vancomycin through PICC line for abscess to the abdomen positive for MRSA. Patient denies any current headache, blurred vision, double vision, extremity numbness or ti ngling. Denies any current extremity weakness. Patient denies any recent rash, fever, chills, cough, shortness of breath, chest pain, abdominal pain, nausea, vomiting, diarrhea, constipation, back pain, hematuria, dysuria, urinary urgency, urinary frequency, headache, visual changes, or any other complaints. - Related Data Home Medications Medication Instructions Recorded Confirmed DULoxetine HCL [Cymbalta] 60 mg PO HS 10/08/17 04/22/21 Omeprazole [PriLOSEC] 40 mg PO HS 11/20/18 04/22/21 traZODone HCL 100 mg PO HS 11/20/18 04/22/21 Atorvastatin [Lipitor] 80 mg PO HS 07/07/19 04/22/21 Albuterol Sulfate [Proair Hfa] 2 puff INHALATION RT-Q6H PRN 04/30/20 04/22/21 Gabapentin [Neurontin] 300 mg PO TID 09/29/20 04/22/21 Tiotropium [place] [Spiriva 2 puff INHALATION RT-DAILY 09/29/20 04/22/21 Respimat] Calcium Carbonate/Vitamin D3 2 tab PO DAILY 11/14/20 04/22/21 [Calcium 600-Vit D3 10 mcg (400 Iu)] Ferrous Sulfate [Iron (65 MG 325 mg PO BID 11/14/20 04/22/21 Elemental)] Multivitamins, Thera [Multivitamin 1 tab PO HS 11/14/20 04/22/21 (formulary)] Aspirin EC [Ecotrin Low Dose] 81 mg PO DAILY 02/20/21 04/22/21 HYDROcodone/APAP 7.5-325MG [[place] 1 tab PO Q6HR PRN 04/22/21 04/22/21 7.5-325] Triamcinolone 0.1% Cream [Kenalog 1 applicatio TOPICAL BID 04/22/21 04/22/21 0.1% Cream] Vancomycin/0.9 % Sod Chloride 2.4 gm IV DIRECTED 04/22/21 04/22/21 [Vanco 750 mg/250 ml-0.9% NaCl] metFORMIN HCL [Glucophage] 1,000 mg PO BID 04/22/21 04/22/21 Previous Rx's Medication Instructions Recorded Acetaminophen Tab [Tylenol] 650 mg PO Q6HR PRN #30 tab 03/30/21 Nicotine 21Mg/24Hr Patch [Habitrol] 1 patch TRANSDERM DAILY #20 patch 03/30/21 Allergies Allergy/AdvReac Type Severity Reaction Status Date / Time No Known Allergies Allergy Verified 04/22/21 18:34 Review of Systems ROS Statement: Those systems with pertinent positive or pertinent negative responses have been documented in the HPI. ROS Other: All systems not noted in ROS Statement are negative. Past Medical History Past Medical History: Asthma, Cancer, COPD, Diabetes Mellitus, Deep Vein Thrombosis (DVT), GERD/Reflux, Hyperlipidemia, Hypertension, Sleep Apnea/CPAP/BIPAP Additional Past Medical History / Comment(s): Open incisional area from umbilical hernia sx, hx infected mesh. AWAITING TWYLA HIP REPLACEMENT. Hx DVT LEFT LEG, HX OF KIDNEY STONES. Hx anemia w/ transfusions, found tumors in colon w/ blockage, Colon cancer diagnosed 10/01/20; has open wound w/ wound vac. Uses cpap. Edema BLE. History of Any Multi-Drug Resistant Organisms: MRSA Date of last positivie culture/infection: 03/15/21 MDRO Source:: right abdomen Past Surgical History: Appendectomy, Hernia Repair, Joint Replacement Additional Past Surgical History / Comment(s): Right knee REPLACED, hernia x2, ABD AORTOGRAM 02/24/17, Hernia repair w/ mesh removal 04/10/20. Hernia mesh removed 10/01/20. 3/4 Parathyroid removal surgery 01/18/2020. Tumor removal small intestine 10/01/20. hernia mesh removel 2020. tumor removal small intestine 2020. Past Anesthesia/Blood Transfusion Reactions: No Reported Reaction Past Psychological History: Anxiety, Depression Smoking Status: Current some day smoker Past Alcohol Use History: None Reported Past Drug Use History: Marijuana - Past Family History Mother History Unknown: Yes Family Medical History: Dementia, Diabetes Mellitus, Hyperlipidemia, Renal Disease Additional Family Medical History / Comment(s): dialysis Father Family Medical History: Coronary Artery Disease (CAD), Diabetes Mellitus General Exam Limitations: altered mental status, physical limitation General appearance: alert, in no apparent distress, other (This is a well- developed, well-nourished adult male patient in no acute distress. Vital signs upon presentation are temperature 98.4F, pulse 74, respirations 18, blood pressure 142/78, pulse ox 99% on room air.) Eye exam: Present: normal appearance, PERRL, EOMI. Absent: scleral icterus, conjunctival injection, nystagmus, periorbital swelling ENT exam: Present: normal exam, normal oropharynx, mucous membranes moist Respiratory exam: Present: normal lung sounds bilaterally. Absent: respiratory distress, wheezes, rales, rhonchi, stridor Cardiovascular Exam: Present: regular rate, normal rhythm, normal heart sounds. Absent: systolic murmur, diastolic murmur, rubs, gallop, clicks GI/Abdominal exam: Present: soft, normal bowel sounds. Absent: distended, tenderness, guarding, rebound, rigid Neurological exam: Present: alert, oriented X3, CN II-XII intact Expanded Speech: Present: fluid speech Cranial nerves: EOM's Intact: Normal, Nystagmus: Normal Cerebellar function: Finger to Nose: Normal Motor strength exam: RUE: 5, LUE: 5, RLE: 5, LLE: 5 Eye Response: (4) open spontaneously Motor Response: (6) obeys commands Verbal Response: (5) oriented [place] Total: 15 Psychiatric exam: Present: normal affect, normal mood Skin exam: Present: warm, dry, intact, normal color. Absent: rash Course Vital Signs 04/22/21 04/22/21 14:27 16:31 Temperature 98.4 F Pulse Rate 74 72 Respiratory 18 18 Rate Blood Pressure 142/78 140/79 O2 Sat by Pulse 99 99 Oximetry EKG Findings - EKG Comments: EKG Findings:: EKG obtained at 1602 shows normal sinus rhythm with a ventricular rate of 61, MI interval 176, QRS duration 100, QT 436, QTc 438. No evidence of ST elevation or depression. Medical Decision Making - Medical Decision Making 60-year-old male patient presenting to the emergency department today for evaluation after having an episode of acute confusion, left-sided weakness, stuttering speech. Physical examination upon arrival was unremarkable. Symptoms fully resolved. Labs reviewed and were unremarkable. CT brain is negative. Chest x-ray negative. EKG unremarkable. Patient symptoms are consistent with TIA. He'll be admitted to the hospital for further evaluation by neurology. Patient is agreeable this plan. Case discussed with my attending Dr. Venegas. - Lab Data Result diagrams: 04/22/21 15:26 04/22/21 15:26 Lab Results 04/22/21 04/22/21 04/22/21 Range/Units 15:26 15:26 15:26 WBC 5.7 (3.8-10.6) k/uL RBC 4.17 L (4.30-5.90) m/uL Hgb 12.5 L (13.0-17.5) gm/dL Hct 39.4 (39.0-53.0) % MCV 94.6 (80.0-100.0) fL MCH 30.0 (25.0-35.0) pg MCHC 31.8 (31.0-37.0) g/dL RDW 18.6 H (11.5-15.5) % Plt Count 250 (150-450) k/uL MPV 7.0 Neutrophils % 69 % Lymphocytes % 20 % Monocytes % 4 % Eosinophils % 5 % Basophils % 1 % Neutrophils # 3.9 (1.3-7.7) k/uL Lymphocytes # 1.1 (1.0-4.8) k/uL Monocytes # 0.2 (0-1.0) k/uL Eosinophils # 0.3 (0-0.7) k/uL Basophils # 0.1 (0-0.2) k/uL Anisocytosis Slight Macrocytosis Slight PT 10.0 (9.0-12.0) sec INR 0.9 (<1.2) APTT 22.1 (22.0-30.0) sec Sodium 138 (137-145) mmol/L Potassium 4.0 (3.5-5.1) mmol/L Chloride 106 (98-107) mmol/L Carbon Dioxide 24 (22-30) mmol/L Anion Gap 8 mmol/L BUN 8 L (9-20) mg/dL Creatinine 0.75 (0.66-1.25) mg/dL Est GFR (CKD-EPI)AfAm >90 (>60 ml/min/1.73 sqM) Est GFR (CKD-EPI)NonAf >90 (>60 ml/min/1.73 sqM) Glucose 137 H (74-99) mg/dL Calcium 8.9 (8.4-10.2) mg/dL Total Bilirubin 0.4 (0.2-1.3) mg/dL AST 22 (17-59) U/L ALT 18 (4-49) U/L Alkaline Phosphatase 105 (38-126) U/L Troponin I (0.000-0.034) ng/mL Total Protein 6.9 (6.3-8.2) g/dL Albumin 3.8 (3.5-5.0) g/dL 04/22/21 Range/Units 15:26 WBC (3.8-10.6) k/uL RBC (4.30-5.90) m/uL Hgb (13.0-17.5) gm/dL Hct (39.0-53.0) % MCV (80.0-100.0) fL MCH (25.0-35.0) pg MCHC (31.0-37.0) g/dL RDW (11.5-15.5) % Plt Count (150-450) k/uL MPV Neutrophils % % Lymphocytes % % Monocytes % % Eosinophils % % Basophils % % Neutrophils # (1.3-7.7) k/uL Lymphocytes # (1.0-4.8) k/uL Monocytes # (0-1.0) k/uL Eosinophils # (0-0.7) k/uL Basophils # (0-0.2) k/uL Anisocytosis Macrocytosis PT (9.0-12.0) sec INR (<1.2) APTT (22.0-30.0) sec Sodium (137-145) mmol/L Potassium (3.5-5.1) mmol/L Chloride (98-107) mmol/L Carbon Dioxide (22-30) mmol/L Anion Gap mmol/L BUN (9-20) mg/dL Creatinine (0.66-1.25) mg/dL Est GFR (CKD-EPI)AfAm (>60 ml/min/1.73 sqM) Est GFR (CKD-EPI)NonAf (>60 ml/min/1.73 sqM) Glucose (74-99) mg/dL Calcium (8.4-10.2) mg/dL Total Bilirubin (0.2-1.3) mg/dL AST (17-59) U/L ALT (4-49) U/L Alkaline Phosphatase (38-126) U/L Troponin I <0.012 (0.000-0.034) ng/mL Total Protein (6.3-8.2) g/dL Albumin (3.5-5.0) g/dL - Radiology Data Radiology results: report reviewed, image reviewed Two-view x-ray of the chest is obtained. Report was reviewed in its entirety. Impression by Dr. Garcia shows no active cardiopulmonary disease. Normal heart. No change. Disposition Clinical Impression: TIA (transient ischemic attack) Disposition: ADMITTED IP TO THIS [facility] Condition: Serious Decision to Admit Reason: Admit from EC Decision Date: 04/22/21 Decision Time: 18:07
[2021-04-22] MEDS ORDERED: NALOXONE 0.4 MG/ML 1 ML VIAL IV PRN (18:06)
[2021-04-22] MEDS ORDERED: ALBUTEROL NEBULIZED 2.5 MG/3 ML INHALATION PRN (19:08)
[2021-04-22] MEDS ORDERED: ACETAMINOPHEN TAB 325 MG TAB PO PRN (19:08)
[2021-04-22] MEDS ORDERED: SOD CHLORIDE IV SCH (19:15)
[2021-04-22] MEDS ORDERED: VANCOMYCIN IV SCH (19:15)
[2021-04-22] MEDS ORDERED: [UNRECOGNIZED DRUG - OTHER] IV SCH (19:15)
[2021-04-22] MEDS: PANTOPRAZOLE 40 MG TABLET PO SCH (20:27)
[2021-04-22] MEDS: metFORMIN 500 MG TAB PO SCH (20:27)
[2021-04-22] MEDS: traZODone HCL 100 MG TAB PO SCH (20:27)
[2021-04-22] MEDS: FERROUS SULFATE 325 MG TAB PO SCH (20:27)
[2021-04-22] MEDS: ATORVASTATIN 80 MG TAB PO SCH (20:27)
[2021-04-22] MEDS: DULoxetine HCL 60 MG CAPSULE.DR PO SCH (20:27)
[2021-04-22] MEDS: MULTIVITAMINS, THERA 1 EACH TAB PO SCH (20:27)
[2021-04-22] MEDS: HYDROcodone/APAP 7.5-325MG 1 EACH TAB PO PRN (20:28)
[2021-04-22] MEDS: GABAPENTIN 300 MG CAP PO SCH (20:28)
[2021-04-22] MEDS ORDERED: diphenhydrAMINE 25 MG CAP PO PRN (21:29)
[2021-04-22] MEDS ORDERED: VANCOMYCIN 2,000 MG in SODIUM CHLORIDE 0.9% 500 ML 500 ML IVPB SCH (22:00)
[2021-04-23] MEDS: TRIAMCINOLONE ACET 0.5% CREAM 15 GM TUBE TOPICAL PRN ×3 (00:32→22:02)
[2021-04-23] MEDS: IPRATROPIUM 0.5 MG/2.5 ML NEBU INHALATION SCH ×4 (07:36→19:27)
[2021-04-23] MEDS: metFORMIN 500 MG TAB PO SCH ×2 (07:48→22:01)
[2021-04-23] MEDS: CALCIUM CARB-VIT D 500 MG-5 MCG TAB PO SCH (07:48)
[2021-04-23] MEDS: GABAPENTIN 300 MG CAP PO SCH ×3 (07:49→22:01)
[2021-04-23] MEDS: NICOTINE 21MG/24HR PATCH TRANSDERM SCH (07:49)
[2021-04-23] MEDS: ASPIRIN 81 MG PO SCH (07:49)
[2021-04-23] MEDS: FERROUS SULFATE 325 MG TAB PO SCH ×2 (07:53→22:01)
[2021-04-23] MEDS: HYDROcodone/APAP 7.5-325MG 1 EACH TAB PO PRN ×2 (07:58→22:01)
[2021-04-23] MEDS: diphenhydrAMINE 25 MG CAP PO PRN ×2 (07:58→22:01)
[2021-04-23] MEDS ORDERED: FUROSEMIDE 10 MG/ML 4 ML VIAL IV STA (09:01)
--- NOTE | 2021-04-23 09:54 | P.HPIM ---
History of Present Illness 60-year-old pleasant male came in with the an episode of confusion briefly without any significant speech abnormality or any other weakness or tingling numbness anywhere in the body. Patient is admitted for evaluation for TIA. CT of the head was negative. Patient is on IV vancomycin for the abdominal wall infection patient also has a wound VAC and patient does have history of sleep apnea uses CPAP machine and question is briefly being held because of concerns of ALLERGIC rash which I did not appreciated patient has been on mitomycin for about a month because of which I do not believe patient has ALLERGIC reaction to vancomycin this will be resumed patient has a PICC line in the left arm which was placed about a month ago side of which doesn't appear to be infected patient doesn't have any fever chills. Patient is alert oriented 3, episode only lasted for few minutes. REVIEW OF SYSTEMS: CONSTITUTIONAL: No fever, no malaise, no fatigue. HEENT: No recent visual problems or hearing problems. Denied any sore throat. CARDIOVASCULAR: No chest pain, orthopnea, PND, no palpitations, no syncope. PULMONARY: No shortness of breath, no cough, no hemoptysis. GASTROINTESTINAL: No diarrhea, no nausea, no vomiting, no abdominal pain. NEUROLOGICAL: No headaches, no weakness, no numbness. HEMATOLOGICAL: Denies any bleeding or petechiae. GENITOURINARY: Denies any burning micturition, frequency, or urgency. MUSCULOSKELETAL/RHEUMATOLOGICAL: Denies any joint pain, swelling, or any muscle pain. ENDOCRINE: Denies any polyuria or polydipsia. The rest of the 14-point review of systems is negative. PHYSICAL EXAMINATION: GENERAL: The patient is alert and oriented x3, not in any acute distress. Well developed, well nourished. HEENT: Pupils are round and equally reacting to light. EOMI. No scleral icterus. No conjunctival pallor. Normocephalic, atraumatic. No pharyngeal erythema. No thyromegaly. CARDIOVASCULAR: S1 and S2 present. No murmurs, rubs, or gallops. PULMONARY: Chest is clear to auscultation, no wheezing or crackles. ABDOMEN: Soft, nontender, nondistended, normoactive bowel sounds. No palpable organomegaly. MUSCULOSKELETAL: No joint swelling or deformity. EXTREMITIES: No cyanosis, clubbing, patient does have bilateral lower extremity edema pitting and only limited to both feet NEUROLOGICAL: Gross neurological examination did not reveal any focal deficits. SKIN: Patient has wound VAC in the right lower abdomen. Assessment and plan -Brief episode of confusion patient will be evaluated for TIA patient probably has a transient global amnesia. Patient will be a valid by neurology further stroke workup as per neurology, LDL was ordered. Echocardiogram will be ordered. Patient is on aspirin and Lipitor which will be continued -Abdominal wall infection for which patient is on antibiotics at home which will be continued patient on Vanco mycin patient had MRSA infection -COPD continues to smoke causing was provided patient with continued on inhalational treatments -Diabetes mellitus-History of DVT in the past -Hyperlipidemia -Hypertension -Sleep Apnea Uses CPAP Machine at Home Patient probably will be discharged later today after evaluation by neurology and neurological workup patient doesn't have any weakness at this time. Past Medical History Past Medical History: Asthma, Cancer, COPD, Diabetes Mellitus, Deep Vein Thrombosis (DVT), GERD/Reflux, Hyperlipidemia, Hypertension, Sleep Apnea/CPAP/BIPAP Additional Past Medical History / Comment(s): Open incisional area from umbilical hernia sx, hx infected mesh. AWAITING TWYLA HIP REPLACEMENT. Hx DVT LEFT LEG, HX OF KIDNEY STONES. Hx anemia w/ transfusions, found tumors in colon w/ blockage, Colon cancer diagnosed 10/01/20; has open wound w/ wound vac. Uses cpap. Edema BLE. History of Any Multi-Drug Resistant Organisms: MRSA Date of last positivie culture/infection: 03/15/21 MDRO Source:: right abdomen Past Surgical History: Appendectomy, Hernia Repair, Joint Replacement Additional Past Surgical History / Comment(s): Right knee REPLACED, hernia x2, ABD AORTOGRAM 02/24/17, Hernia repair w/ mesh removal 04/10/20. Hernia mesh removed 10/01/20. 3/4 Parathyroid removal surgery 01/18/2020. Tumor removal small intestine 10/01/20. hernia mesh removel 2020. tumor removal small intestine 2020. Past Anesthesia/Blood Transfusion Reactions: No Reported Reaction Past Psychological History: Anxiety, Depression Additional Psychological History / Comment(s): Pt has his adult nik living with him. He has a cane, walker. He drives. He is disabled. Smoking Status: Current some day smoker Past Alcohol Use History: None Reported Additional Past Alcohol Use History / Comment(s): Pt started smoking in 1973, and is a 1 ppd smoker. Past Drug Use History: Marijuana Additional Drug Use History / Comment(s): no marijuana in 1 month currently - Past Family History Mother History Unknown: Yes Family Medical History: Dementia, Diabetes Mellitus, Hyperlipidemia, Renal Disease Additional Family Medical History / Comment(s): dialysis Father Family Medical History: Coronary Artery Disease (CAD), Diabetes Mellitus Medications and Allergies Home Medications Medication Instructions Recorded Confirmed Type DULoxetine HCL [Cymbalta] 60 mg PO HS 10/08/17 04/22/21 History Omeprazole [PriLOSEC] 40 mg PO HS 11/20/18 04/22/21 History traZODone HCL 100 mg PO HS 11/20/18 04/22/21 History Atorvastatin [Lipitor] 80 mg PO HS 07/07/19 04/22/21 History Albuterol Sulfate [Proair Hfa] 2 puff INHALATION RT-Q6H PRN 04/30/20 04/22/21 History Gabapentin [Neurontin] 300 mg PO TID 09/29/20 04/22/21 History Tiotropium [place] [Spiriva 2 puff INHALATION RT-DAILY 09/29/20 04/22/21 History Respimat] Calcium Carbonate/Vitamin D3 2 tab PO DAILY 11/14/20 04/22/21 History [Calcium 600-Vit D3 10 mcg (400 Iu)] Ferrous Sulfate [Iron (65 MG 325 mg PO BID 11/14/20 04/22/21 History Elemental)] Multivitamins, Thera [Multivitamin 1 tab PO HS 11/14/20 04/22/21 History (formulary)] Aspirin EC [Ecotrin Low Dose] 81 mg PO DAILY 02/20/21 04/22/21 History Acetaminophen Tab [Tylenol] 650 mg PO Q6HR PRN #30 tab 03/30/21 04/22/21 Rx Nicotine 21Mg/24Hr Patch [Habitrol] 1 patch TRANSDERM DAILY #20 patch 03/30/21 04/22/21 Rx HYDROcodone/APAP 7.5-325MG [[place] 1 tab PO Q6HR PRN 04/22/21 04/22/21 History 7.5-325] Triamcinolone 0.1% Cream [Kenalog 1 applicatio TOPICAL BID 04/22/21 04/22/21 History 0.1% Cream] Vancomycin/0.9 % Sod Chloride 2.4 gm IV DIRECTED 04/22/21 04/22/21 History [Vanco 750 mg/250 ml-0.9% NaCl] metFORMIN HCL [Glucophage] 1,000 mg PO BID 04/22/21 04/22/21 History Allergies Allergy/AdvReac Type Severity Reaction Status Date / Time No Known Allergies Allergy Verified 04/22/21 18:34 Physical Exam Vitals: Vital Signs Temp Pulse Pulse Pulse Resp BP BP 04/23/21 08:00 71 69 16 04/23/21 07:50 90 04/23/21 07:41 04/23/21 07:36 88 04/23/21 04:32 97.5 F L 71 16 155/87 04/22/21 20:21 65 18 04/22/21 20:00 98.1 F 69 18 136/80 04/22/21 19:53 97.2 F L 71 18 140/78 04/22/21 16:31 72 18 140/79 04/22/21 14:27 98.4 F 74 18 142/78 Pulse Ox 04/23/21 08:00 04/23/21 07:50 04/23/21 07:41 98 04/23/21 07:36 04/23/21 04:32 93 L 04/22/21 20:21 04/22/21 20:00 96 04/22/21 19:53 97 04/22/21 16:31 99 04/22/21 14:27 99 Intake and Output 04/22/21 04/23/21 04/23/21 22:59 06:59 14:59 Other: Voiding Method Toilet Toilet Urinal Urinal Weight 124.738 kg Results CBC & Chem 7: 04/22/21 15:26 04/22/21 15:26 Labs: Abnormal Lab Results - Last 24 Hours (Table) 04/22/21 04/22/21 Range/Units 15:26 15:26 RBC 4.17 L (4.30-5.90) m/uL Hgb 12.5 L (13.0-17.5) gm/dL RDW 18.6 H (11.5-15.5) % BUN 8 L (9-20) mg/dL Glucose 137 H (74-99) mg/dL Thrombosis Risk Factor Assmnt - Choose All That Apply Any of the Below Risk Factors Present?: Yes Each Factor Represents 1 point: Obesity (BMI >25) Other Risk Factors: Yes Each Risk Factor Represents 2 Points: Age 61-74 years Other congenital or acquired thrombophilia - If yes, enter type in comment: No Thrombosis Risk Factor Assessment Total Risk Factor Score: 3 Thrombosis Risk Factor Assessment Level: Moderate Risk
[2021-04-23 11:22] LABS: HDL Cholesterol 44.7 mg/dL (40.00-60.00); LDL Cholesterol,Calculated 104.3 mg/dL (0.0-131.0)
[2021-04-23] MEDS: VANCOMYCIN 2,000 MG in SODIUM CHLORIDE 0.9% 500 ML 500 ML IVPB SCH (11:47)
--- NOTE | 2021-04-23 13:17 | P.CNNES ---
History of Present Illness Consult date: 04/23/21 Requesting physician: Elma Hanson Reason for Consult: TIA History of Present Illness: Patient is a 60-year-old right-handed male came to the hospital yesterday at 2:10 PM after he had an episode of possible TIA. Patient states that yesterday at around 1 PM, he was doing nothing, was just sitting, when all of a sudden he did not feel right. Patient was talking to his daughter, when she noticed that he was slurring speech, he was not speaking clearly and he was not thinking clearly. He did not have any facial numbness, or focal weakness numbness or tingling of the extremities. No facial droop reported. He states that he was walking with his walker, he felt his balance was off, more than usua l, and felt a couple times that he will fall. This episode lasted for about 10- 15 minutes and slowly passed. EMS was called, but when they arrived, he started feeling better, therefore patient was brought to the hospital by his family. There was no associated headache. Vital signs on arrival blood pressure 142/78, pulse 74, temperature 98.4. CT head was normal. Chest x-ray showed no acute cardiopulmonary disease. Normal chest. EKG shows normal sinus rhythm. Patient's labs were reviewed. His total cholesterol is 179, LDL 104, HDL 44.7 and triglycerides 150. Coronal virus PCR negative. Patient's last B12 is 528 on 10/27/2020, folate 7.5 which is borderline. TSH normal 3.52. Patient's last hemoglobin A1c 7.7 on 03/21/2021. Patient does have history of sleep apnea, denies any chest pain. He uses a walker most of the time for last 4-5 years. He states that his kids are afraid that he will fall. He has problem with the hips particularly on the right and history of right knee surgery. Patient also has history of abdominal hernia, which had a wound infection, and has possible MRSA. Patient is on contact isolation. Patient has history of diabetes for 10 years, also smoked half to 1 pack per day for 40 years. Patient has been taking aspirin 81 mg daily for last 5 years. He is compliant. Occasionally misses a dose. Review of Systems As above in detail. Denies any chest pain. He does have sleep apnea, uses CPAP machine. Patient has gait difficulty, right hip problem and history of right knee surgery. Denies any double vision, loss of vision. No abdominal pain, nausea vomiting diarrhea. He had hernia. Past Medical History Past Medical History: Asthma, Cancer, COPD, Diabetes Mellitus, Deep Vein Thrombosis (DVT), GERD/Reflux, Hyperlipidemia, Hypertension, Sleep Apnea/CPAP/BIPAP Additional Past Medical History / Comment(s): Open incisional area from umbilical hernia sx, hx infected mesh. AWAITING TWYLA HIP REPLACEMENT. Hx DVT LEFT LEG, HX OF KIDNEY STONES. Hx anemia w/ transfusions, found tumors in colon w/ blockage, Colon cancer diagnosed 10/01/20; has open wound w/ wound vac. Uses cpap. Edema BLE. History of Any Multi-Drug Resistant Organisms: MRSA Date of last positivie culture/infection: 03/15/21 MDRO Source:: right abdomen Past Surgical History: Appendectomy, Hernia Repair, Joint Replacement Additional Past Surgical History / Comment(s): Right knee REPLACED, hernia x2, ABD AORTOGRAM 02/24/17, Hernia repair w/ mesh removal 04/10/20. Hernia mesh removed 10/01/20. 3/4 Parathyroid removal surgery 01/18/2020. Tumor removal small intestine 10/01/20. hernia mesh removel 2020. tumor removal small intestine 2020. Past Anesthesia/Blood Transfusion Reactions: No Reported Reaction Past Psychological History: Anxiety, Depression Additional Psychological History / Comment(s): Pt has his adult nik living with him. He has a cane, walker. He drives. He is disabled. Smoking Status: Current some day smoker Past Alcohol Use History: None Reported Additional Past Alcohol Use History / Comment(s): Pt started smoking in 1973, and is a 1 ppd smoker. Past Drug Use History: Marijuana Additional Drug Use History / Comment(s): no marijuana in 1 month currently - Past Family History Mother History Unknown: Yes Family Medical History: Dementia, Diabetes Mellitus, Hyperlipidemia, Renal Disease Additional Family Medical History / Comment(s): dialysis Father Family Medical History: Coronary Artery Disease (CAD), Diabetes Mellitus Medications and Allergies Home Medications Medication Instructions Recorded Confirmed Type DULoxetine HCL [Cymbalta] 60 mg PO HS 10/08/17 04/22/21 History Omeprazole [PriLOSEC] 40 mg PO HS 11/20/18 04/22/21 History traZODone HCL 100 mg PO HS 11/20/18 04/22/21 History Atorvastatin [Lipitor] 80 mg PO HS 07/07/19 04/22/21 History Albuterol Sulfate [Proair Hfa] 2 puff INHALATION RT-Q6H PRN 04/30/20 04/22/21 History Gabapentin [Neurontin] 300 mg PO TID 09/29/20 04/22/21 History Tiotropium [place] [Spiriva 2 puff INHALATION RT-DAILY 09/29/20 04/22/21 History Respimat] Calcium Carbonate/Vitamin D3 2 tab PO DAILY 11/14/20 04/22/21 History [Calcium 600-Vit D3 10 mcg (400 Iu)] Ferrous Sulfate [Iron (65 MG 325 mg PO BID 11/14/20 04/22/21 History Elemental)] Multivitamins, Thera [Multivitamin 1 tab PO HS 11/14/20 04/22/21 History (formulary)] Aspirin EC [Ecotrin Low Dose] 81 mg PO DAILY 02/20/21 04/22/21 History Acetaminophen Tab [Tylenol] 650 mg PO Q6HR PRN #30 tab 03/30/21 04/22/21 Rx Nicotine 21Mg/24Hr Patch [Habitrol] 1 patch TRANSDERM DAILY #20 patch 03/30/21 04/22/21 Rx HYDROcodone/APAP 7.5-325MG [[place] 1 tab PO Q6HR PRN 04/22/21 04/22/21 History 7.5-325] Triamcinolone 0.1% Cream [Kenalog 1 applicatio TOPICAL BID 04/22/21 04/22/21 History 0.1% Cream] Vancomycin/0.9 % Sod Chloride 2.4 gm IV DIRECTED 04/22/21 04/22/21 History [Vanco 750 mg/250 ml-0.9% NaCl] metFORMIN HCL [Glucophage] 1,000 mg PO BID 04/22/21 04/22/21 History Allergies Allergy/AdvReac Type Severity Reaction Status Date / Time No Known Allergies Allergy Verified 04/22/21 18:34 Physical Examination - Vital Signs Vital Signs: Vital Signs Temp Pulse Pulse Pulse Resp BP BP 04/23/21 08:00 71 69 16 04/23/21 07:50 90 04/23/21 07:41 04/23/21 07:36 88 04/23/21 04:32 97.5 F L 71 16 155/87 04/22/21 20:21 65 18 04/22/21 20:00 98.1 F 69 18 136/80 04/22/21 19:53 97.2 F L 71 18 140/78 04/22/21 16:31 72 18 140/79 04/22/21 14:27 98.4 F 74 18 142/78 Pulse Ox 04/23/21 08:00 04/23/21 07:50 04/23/21 07:41 98 04/23/21 07:36 04/23/21 04:32 93 L 04/22/21 20:21 04/22/21 20:00 96 04/22/21 19:53 97 04/22/21 16:31 99 04/22/21 14:27 99 Intake and Output 04/22/21 04/23/21 04/23/21 22:59 06:59 14:59 Output Total 1100 Balance -1100 Output: Urine 1100 Other: Voiding Method Toilet Toilet Urinal Urinal Weight 124.738 kg Patient is an elderly male, in no acute distress. Patient is alert awake oriented to time place and person. Speech and language functions are normal. Attention, concentration and fund of knowledge is adequate. Patient can name and repeat very well. No aphasia or dysarthria. On cranial examination, pupils are round and reacting to light, visual agee are full on confrontation, extraocular muscles are intact with no nystagmus. Face is symmetric, tongue protrudes to the midline. Palatal elevation and sensation normal, hearing and shoulder shrug normal, facial sensation normal. Shoulder shrug normal. On muscle strength testing, there is no pronator drift and the strength is normal in arms and legs distally and proximally. Deep tendon reflexes are grossly hypoactive except left knee is 2, decreased right knee reflex. Plantars are downgoing bilaterally. Sensory to touch is equal with no neglect. Cerebellar function showed no ataxia for [id number] testing. No dysdiadochokinesia. Tone and bulk of muscles normal. Gait, not checked. On general examination, there is no carotid bruit or murmur, S1-S2 audible. Abdomen is soft nontender. patient had hernia. Chest is clear. Peripheral pulses are present. No edema. Evidence of old right knee surgery. Results - Laboratory Findings CBC and BMP: 04/22/21 15:26 04/24/21 06:00 Abnormal Lab Findings: Abnormal Labs 04/22/21 04/22/21 04/22/21 15:26 15:26 15:26 RBC 4.17 L Hgb 12.5 L RDW 18.6 H BUN 8 L Glucose 137 H Triglycerides 150.00 H Assessment and Plan Assessment: * Probable TIA, manifesting with transient episode of slurred speech, difficulty speaking clearly and "not thinking clearly", that lasted for 10-15 minutes. No other lateralizing symptoms. Current examination is nonfocal. * Diabetes * Hypertension * Hyperlipidemia * Tobacco use Plan: * Patient will undergo TIA workup including carotid Doppler to rule out stenosis. * 2-D echo, rule out any embolic source. * Patient's hemoglobin A1c is 7.7 on 03/21/2021. Need to optimize control of diabetes to target A1c <7.0. * Lipid panel with cholesterol 179, LDL 104, HDL 44 and triglycerides 150. Continue high-dose Lipitor 80 mg. * Optimize control of blood pressure. * Telemetry monitoring. * We will consider switching from aspirin to Plavix 75 mg for possible TIA. * We will follow.
--- NOTE | 2021-04-23 13:52 | US ---
EXAMINATION TYPE: US carotid duplex BILAT DATE OF EXAM: 04/23/2021 COMPARISON: NONE CLINICAL HISTORY: Episode of confusion, possible TIA. Bilateral leg weakness, diabetic and dysarthria per patient; smoker x 40 years. History of small bowel cancer. EXAM MEASUREMENTS: RIGHT: Peak Systolic Velocity (PSV) cm/sec ----- Right CCA: 73.8 ----- Right ICA: 54.6 ----- Right ECA: 114.0 ICA/CCA ratio: 0.7 RIGHT: End Diastole cm/sec ----- Right CCA: 14.3 ----- Right ICA: 0.0. ----- Right ECA: 14.8 LEFT: Peak Systolic Velocity (PSV) cm/sec ----- Left CCA: 82.6 ----- Left ICA: 52.3 ----- Left ECA: 71.3 ICA/CCA ratio: 0.6 LEFT: End Diastole cm/sec ----- Left CCA: 14.8 ----- Left ICA: 12.5 ----- Left ECA: 10.1 VERTEBRALS (direction of flow): Right Vertebral: Antegrade Left Vertebral: Antegrade Rhythm: normal No significant focal plaque at carotid bulb level bilaterally. IMPRESSION: No hemodynamically significant stenosis in either internal carotid artery Criteria for Assigning % of Stenosis / Diameter reduction (Estimation based on the indirect measurements of the internal carotid artery velocities (ICA PSV). 1. Normal (no stenosis)=ICA PSV < 125 cm/s: ratio < 2.0: ICA EDV<40 cm/s. 2. Less than 50% stenosis=ICA PSV < 125 cm/s: ratio < 2.0: ICA EDV<40 cm/s. 3. 50 to 69% stenosis=ICA PSV of 125 to 230 cm/s: ration 2.0 ? 4.0: ICA EDV 40-100 cm/s. 4. Greater than 70% stenosis to near occlusion= ICA PSV > 230 cm/s: ratio > 4.0: ICA EDV > 100 cm/s. 5. Near occlusion= ICA PSV velocities may be low or undetectable: variable ratio and ICA EDV. 6. Total occlusion=unable to detect flow.
[2021-04-23] MEDS: FOLIC ACID 1 MG TAB PO SCH (17:37)
[2021-04-23] MEDS: DULoxetine HCL 60 MG CAPSULE.DR PO SCH (22:00)
[2021-04-23] MEDS: ATORVASTATIN 80 MG TAB PO SCH (22:00)
[2021-04-23] MEDS: traZODone HCL 100 MG TAB PO SCH (22:01)
[2021-04-23] MEDS: MULTIVITAMINS, THERA 1 EACH TAB PO SCH (22:01)
[2021-04-23] MEDS: PANTOPRAZOLE 40 MG TABLET PO SCH (22:01)
[2021-04-24] MEDS: HYDROcodone/APAP 7.5-325MG 1 EACH TAB PO PRN ×2 (04:07→21:57)
[2021-04-24] MEDS: VANCOMYCIN 2,000 MG in SODIUM CHLORIDE 0.9% 500 ML 500 ML IVPB SCH ×2 (04:08→21:56)
[2021-04-24 06:48] LABS: African American GFR (CKD) >90 (>60 ml/min/1.73 sqM); Anion Gap 7 mmol/L; Blood Urea Nitrogen 14 mg/dL (9-20); Calcium 8.3 mg/dL (8.4-10.2); Carbon Dioxide 25 mmol/L (22-30); Chloride 106 mmol/L (98-107); Glucose 172 mg/dL (74-99); Non-African American GFR(CKD) >90 (>60 ml/min/1.73 sqM); Potassium 4.1 mmol/L (3.5-5.1); Sodium 138 mmol/L (137-145)
[2021-04-24] MEDS: metFORMIN 500 MG TAB PO SCH ×2 (07:26→21:57)
[2021-04-24] MEDS: FOLIC ACID 1 MG TAB PO SCH (07:26)
[2021-04-24] MEDS: GABAPENTIN 300 MG CAP PO SCH ×3 (07:26→21:57)
[2021-04-24] MEDS: NICOTINE 21MG/24HR PATCH TRANSDERM SCH (07:26)
[2021-04-24] MEDS: ASPIRIN 81 MG PO SCH (07:26)
[2021-04-24] MEDS: FERROUS SULFATE 325 MG TAB PO SCH ×2 (07:27→21:56)
[2021-04-24] MEDS: CALCIUM CARB-VIT D 500 MG-5 MCG TAB PO SCH (07:27)
--- NOTE | 2021-04-24 07:39 | ECHOF ---
Referral Reason:tia MEASUREMENTS -------- HEIGHT: 180.3 cm WEIGHT: 124.7 kg BP: IVSd: 1.6 cm (0.6 - 1.1) LVIDd: 4.4 cm (3.9 - 5.3) LVPWd: 1.5 cm (0.6 - 1.1) IVSs: 1.5 cm LVIDs: 2.9 cm LVPWs: 1.7 cm Ao Diam: 3.4 cm (2.0 - 3.7) AV Cusp: 2.7 cm (1.5 - 2.6) LA Diam: 3.0 cm (2.7 - 3.8) MV EXCURSION: 12.907 mm (> 18.000) MV EF SLOPE: 74 mm/s (70 - 150) EPSS: 1.6 cm MV E Adarsh: 0.88 m/s MV DecT: 219 ms MV A Adarsh: 0.82 m/s MV E/A Ratio: 1.07 AV maxP.26 mmHg AV meanP.07 mmHg RAP: 5.00 mmHg RVSP: 15.56 mmHg FINDINGS -------- This was a technically difficult study with suboptimal views. The left ventricular size is normal. There is moderate concentric left ventricular hypertrophy. O verall left ventricular systolic function is normal with, an EF between 55 - 60 %. The right ventricle is normal in size. The left atrial size is normal. The right atrial size is normal. Lumason used The aortic valve was not well visualized. The mitral valve is normal. There is trace mitral regurgitation. The tricuspid valve appears structurally normal. Trace tricuspid regurgitation present. Right lily tricular systolic pressure is normal at < 35 mmHg. There is no pulmonic regurgitation present. The aortic root size is normal. IVC Not well visulized. There is no pericardial effusion. CONCLUSIONS -------- 1. The left ventricular size is normal. 2. There is moderate concentric left ventricular hypertrophy. 3. Overall left ventricular systolic function is normal with, an EF between 55 - 60 %. 4. There is trace mitral regurgitation. 5. Trace tricuspid regurgitation present. 6. There is no pericardial effusion. PRIMARY HEALTH CARE NURSE: Geri Patino RDCS
[2021-04-24] MEDS: IPRATROPIUM 0.5 MG/2.5 ML NEBU INHALATION SCH ×4 (08:44→21:21)
--- NOTE | 2021-04-24 12:22 | P.PN ---
Subjective Progress Note Date: 04/24/21 Patient denies any focal symptoms. Still some hip issues. But no focal symptoms. No headache. No dizziness. Objective - Vital Signs Vital signs: Vital Signs Temp 98 F 04/24/21 12:18 Pulse 84 04/24/21 12:18 Resp 17 04/24/21 12:18 BP 139/88 04/24/21 12:18 Pulse Ox 97 04/24/21 12:18 Intake & Output 04/23/21 04/24/21 04/24/21 18:59 06:59 18:59 Intake Total 240 100 Output Total 1900 Balance -1660 100 Intake: Oral 240 100 Output: Urine 1900 Other: Voiding Method Toilet Toilet Toilet Urinal Urinal Urinal # Voids 3 - Exam No change. Mentation normal. Speech clear. Patient using CPAP. - Labs CBC & Chem 7: 04/22/21 15:26 04/24/21 06:00 Labs: Abnormal Lab Results - Last 24 Hours (Table) 04/24/21 Range/Units 06:00 Glucose 172 H (74-99) mg/dL Calcium 8.3 L (8.4-10.2) mg/dL Assessment and Plan Assessment: * Probable TIA, manifesting with transient episode of slurred speech, difficulty speaking clearly and "not thinking clearly", that lasted for 10-15 minutes. No other lateralizing symptoms. Current examination is nonfocal. * Diabetes * Hypertension * Hyperlipidemia * Tobacco use Plan: * Patient underwent TIA workup. * Carotid Doppler showed no hemodynamically significant stenosis in either ICA. Antegrade flow in both vertebral arteries. * 2-D echo revealed normal left ventricular size. Moderate concentric LVH. EF is between 55-60%. Trace MR. * Patient's hemoglobin A1c is 7.7 on 03/21/2021. Need to optimize control of diabetes to target A1c <7.0. * Lipid panel with cholesterol 179, LDL 104, HDL 44 and triglycerides 150. Continue high-dose Lipitor 80 mg. * Optimize control of blood pressure. * Telemetry monitoring showing normal sinus rhythm, no arrhythmia. * Patient to be maintained on dual antiplatelet medication with aspirin 81 mg and Plavix 75 mg for 21 days and then stop aspirin and maintain on single agent Plavix 75 mg. * Neurologically clear for discharge.
[2021-04-24] MEDS: CLOPIDOGREL 75 MG TAB PO SCH (13:15)
[2021-04-24 20:20] VITALS: RESP 18
[2021-04-24] MEDS: ATORVASTATIN 80 MG TAB PO SCH (21:56)
[2021-04-24] MEDS: DULoxetine HCL 60 MG CAPSULE.DR PO SCH (21:56)
[2021-04-24] MEDS: MULTIVITAMINS, THERA 1 EACH TAB PO SCH (21:57)
[2021-04-24] MEDS: traZODone HCL 100 MG TAB PO SCH (21:57)
[2021-04-24] MEDS: TRIAMCINOLONE ACET 0.5% CREAM 15 GM TUBE TOPICAL PRN (21:57)
[2021-04-24] MEDS: PANTOPRAZOLE 40 MG TABLET PO SCH (21:57)
--- NOTE | 2021-04-24 22:53 | P.CONS ---
History of Present Illness - Reason for Consult Consult date: 04/24/21 abd wall abscess/cellulitis Requesting physician: Mirian Cherry - Chief Complaint weakness , slurred speech x 1 day - History of Present Illness History of present illness : Patient is 60-year male who was recently admitted to this facility patient did have a infected abdominal wall hematoma patient is status post surgical drainage of the hematoma culture positive for MRSA patient did get a PICC line and is currently getting vancomycin pharmacy to dose with end date of 05/04/2021 patient local wound care to the abdominal wound has been wound VAC patient was brought to the [facility] ER 2 days ago for evaluation of episode of acute confusion speech disturbance and left-sided weakness for the patient is currently being evaluated and managed by primary and admitting services patient did have a CT of the brain that was negative for any bleed patient did not have any fever during this admission and the patient did have a normal white count kidney function has been normal infection was consulted today for management of his underlying right abdominal wall abscess cellulitis and local wound care patient currently denies having any fever or any chills, patient denies pain to his abdominal wound area he did have some discomfort in the time of wound VAC change patient wound has decreased in size no purulent drainage denies any problem with the PICC line and no diarrhea with antibiotic therapy Review of system: CONSTITUTIONAL: Positive for weakness denies fever. EYES: No complaint. ENT: No complaint. RESPIRATORY: No complaint. CARDIOVASCULAR: No complaint. GENITOURINARY: No complaint. GASTROINTESTINAL as per history of present illness. MUSCULOSKELETAL: No complaint. INTEGUMENTARY: No complaint. PSYCHOLOGIC: No complaint. ENDOCRINE: No complaint. NEUROLOGIC as per history of present illness Past medical history : Reviewed, documented below Past surgical history : Reviewed, documented below Social history: Reviewed, documented below Medications: Reviewed, as documented below EXAMINATION: Vital sigans= Reviewed and documented below GENERAL DESCRIPTION: Middle-aged male lying in bed, no distress. No tachypnea or accessory muscle of respiration use. HEENT: Shows Pallor , no scleral icterus. Oral mucous membrane is dry. NECK: Trachea central, no thyromegaly. LUNGS: Unlabored breathing. Clear to auscultation anteriorly. No wheeze or crackle. HEART: S1, S2, regular rate and rhythm. ABDOMEN: Soft, no tenderness , guarding or rigidity, abdominal wound has decreased in size and depth wound base with no slough tissue no surrounding induration redness or any drainage EXTREMITIES: No edema of feet. SKIN: No rash, no masses palpable. NEUROLOGICAL: The patient is awake, alert, oriented x3, mood and affect normal. LABS AND RADIOLOGY: Reviewed results see below Assessment : Patient with abdominal bone for surgical drainage of an infected hematoma culture positive for MRSA and the patient is currently getting vanc omycin at home through PICC line and scheduled to complete as of 05/04/2021 patient currently admitted to hospital for possible TIA and the patient did have significant improvement as the wound has decreased in size and depth and no evidence of any induration or persistent abscess clinically Plan: 1-vancomycin pharmacy to dose with a target trough of 15 while watching kidney function and Vanco trough closely. With end date of 05/04/2021 2-local wound care with the wound VAC black foam continuous pressure of 125 mmHg to change Friday We will follow on clinical condition and cultures to further adjust medication if needed Thank you for this consultation we will follow the patient along with you Past Medical History Past Medical History: Asthma, Cancer, COPD, Diabetes Mellitus, Deep Vein Thrombosis (DVT), GERD/Reflux, Hyperlipidemia, Hypertension, Sleep Apnea/CPAP/BIPAP Additional Past Medical History / Comment(s): Open incisional area from umbilical hernia sx, hx infected mesh. AWAITING TWYLA HIP REPLACEMENT. Hx DVT LEFT LEG, HX OF KIDNEY STONES. Hx anemia w/ transfusions, found tumors in colon w/ blockage, Colon cancer diagnosed 10/01/20; has open wound w/ wound vac. Uses cpap. Edema BLE. History of Any Multi-Drug Resistant Organisms: MRSA Year Discovered:: 03/15/21 MDRO Source:: right abdomen Past Surgical History: Appendectomy, Hernia Repair, Joint Replacement Additional Past Surgical History / Comment(s): Right knee REPLACED, hernia x2, ABD AORTOGRAM 02/24/17, Hernia repair w/ mesh removal 04/10/20. Hernia mesh removed 10/01/20. 3/4 Parathyroid removal surgery 01/18/2020. Tumor removal small intestine 10/01/20. hernia mesh removel 2020. tumor removal small intestine 2020. Past Anesthesia/Blood Transfusion Reactions: No Reported Reaction Past Psychological History: Anxiety, Depression Additional Psychological History / Comment(s): Pt has his adult nik living with him. He has a cane, walker. He drives. He is disabled. Smoking Status: Current some day smoker Past Alcohol Use History: None Reported Additional Past Alcohol Use History / Comment(s): Pt started smoking in 1973, and is a 1 ppd smoker. Past Drug Use History: Marijuana Additional Drug Use History / Comment(s): no marijuana in 1 month currently - Past Family History Mother History Unknown: Yes Family Medical History: Dementia, Diabetes Mellitus, Hyperlipidemia, Renal Disease Additional Family Medical History / Comment(s): dialysis Father Family Medical History: Coronary Artery Disease (CAD), Diabetes Mellitus Medications and Allergies Home Medications Medication Instructions Recorded Confirmed Type DULoxetine HCL [Cymbalta] 60 mg PO HS 10/08/17 04/22/21 History Omeprazole [PriLOSEC] 40 mg PO HS 11/20/18 04/22/21 History traZODone HCL 100 mg PO HS 11/20/18 04/22/21 History Atorvastatin [Lipitor] 80 mg PO HS 07/07/19 04/22/21 History Albuterol Sulfate [Proair Hfa] 2 puff INHALATION RT-Q6H PRN 04/30/20 04/22/21 History Gabapentin [Neurontin] 300 mg PO TID 09/29/20 04/22/21 History Tiotropium [place] [Spiriva 2 puff INHALATION RT-DAILY 09/29/20 04/22/21 History Respimat] Calcium Carbonate/Vitamin D3 2 tab PO DAILY 11/14/20 04/22/21 History [Calcium 600-Vit D3 10 mcg (400 Iu)] Ferrous Sulfate [Iron (65 MG 325 mg PO BID 11/14/20 04/22/21 History Elemental)] Multivitamins, Thera [Multivitamin 1 tab PO HS 11/14/20 04/22/21 History (formulary)] Aspirin EC [Ecotrin Low Dose] 81 mg PO DAILY 02/20/21 04/22/21 History Acetaminophen Tab [Tylenol] 650 mg PO Q6HR PRN #30 tab 03/30/21 04/22/21 Rx Nicotine 21Mg/24Hr Patch [Habitrol] 1 patch TRANSDERM DAILY #20 patch 03/30/21 04/22/21 Rx HYDROcodone/APAP 7.5-325MG [[place] 1 tab PO Q6HR PRN 04/22/21 04/22/21 History 7.5-325] Triamcinolone 0.1% Cream [Kenalog 1 applicatio TOPICAL BID 04/22/21 04/22/21 History 0.1% Cream] Vancomycin/0.9 % Sod Chloride 2.4 gm IV DIRECTED 04/22/21 04/22/21 History [Vanco 750 mg/250 ml-0.9% NaCl] metFORMIN HCL [Glucophage] 1,000 mg PO BID 04/22/21 04/22/21 History Clopidogrel [Plavix] 75 mg PO DAILY 30 Days #30 tab 04/24/21 Rx Folic Acid 1 mg PO DAILY 30 Days #30 tab 04/24/21 Rx Allergies Allergy/AdvReac Type Severity Reaction Status Date / Time No Known Allergies Allergy Verified 04/22/21 18:34 Physical Exam Vitals: Vital Signs Temp Pulse Pulse Pulse Resp BP Pulse Ox 04/24/21 20:19 98.2 F 72 18 156/79 96 04/24/21 19:00 80 20 04/24/21 17:33 68 04/24/21 17:26 97 04/24/21 17:23 70 04/24/21 12:18 98 F 84 17 139/88 97 04/24/21 08:56 72 04/24/21 08:44 70 95 04/24/21 07:34 75 69 20 04/24/21 04:40 98.7 F 75 20 156/62 97 Intake and Output 04/24/21 04/24/21 04/24/21 06:59 14:59 22:59 Intake Total 100 Balance 100 Intake: Oral 100 Other: Voiding Method Toilet Toilet Urinal Urinal # Voids 3 1 Results CBC & Chem 7: 04/22/21 15:26 04/24/21 06:00 Labs: Abnormal Lab Results - Last 24 Hours (Table) 04/24/21 Range/Units 06:00 Glucose 172 H (74-99) mg/dL Calcium 8.3 L (8.4-10.2) mg/dL
--- NOTE | 2021-04-24 23:36 | P.PN ---
Subjective Progress Note Date: 04/24/21 60-year-old pleasant male came in with the an episode of confusion briefly without any significant speech abnormality or any other weakness or tingling numbness anywhere in the body. Patient is admitted for evaluation for TIA. CT of the head was negative. Patient is on IV vancomycin for the abdominal wall infection patient also has a wound VAC and patient does have history of sleep apnea uses CPAP machine and question is briefly being held because of concerns of ALLERGIC rash which I did not appreciated patient has been on mitomycin for about a month because of which I do not believe patient has ALLERGIC reaction to vancomycin this will be resumed patient has a PICC line in the left arm which w as placed about a month ago side of which doesn't appear to be infected patient doesn't have any fever chills. Patient is alert oriented 3, episode only lasted for few minutes. 04/24/2021 Patient was seen in follow up today with no acute overnight issues. Patient has remained on aspirin and being started on plavix with neurology following. Patient has been normal sinus on tele and 2d echo shows ef of 55-60%. Patient remains on wound vac and IV vanco with a picc line as he has been being treated in the outpatient setting for an abdominal wound abscess. Infectious disease consulted for evaluation and discharge antibiotic recommendation as a requirement from [facility] to continue his wound care and IV abx management. REVIEW OF SYSTEMS: CONSTITUTIONAL: No fever, no malaise, no fatigue. CARDIOVASCULAR: No chest pain PULMONARY: No shortness of breath, no cough, no hemoptysis. GASTROINTESTINAL: No diarrhea, no nausea, no vomiting, no abdominal pain. NEUROLOGICAL: No headaches, no weakness, no numbness. PHYSICAL EXAMINATION: GENERAL: The patient is alert and oriented x3, not in any acute distress. Well developed, well nourished. HEENT: Pupils are round and equally reacting to light. EOMI. No scleral icterus. No conjunctival pallor. Normocephalic, atraumatic. No pharyngeal erythema. No thyromegaly. CARDIOVASCULAR: S1 and S2 present. No murmurs, rubs, or gallops. PULMONARY: Chest is clear to auscultation, no wheezing or crackles. ABDOMEN: Soft, nontender, nondistended, normoactive bowel sounds. No palpable organomegaly. MUSCULOSKELETAL: No joint swelling or deformity. EXTREMITIES: No cyanosis, clubbing, patient does have bilateral lower extremity edema pitting and only limited to both feet NEUROLOGICAL: Gross neurological examination did not reveal any focal deficits. SKIN: Patient has wound VAC in the right lower abdomen. Assessment and plan -Brief episode of confusion patient was evaluated for TIA patient probably has a transient global amnesia. Neurology following and recommending dual antiplatelet for 21 days with aspirin and plavix and close neurology follow up outpatient. -Abdominal wall infection for which patient is on antibiotics at home which will be continued patient on Vanco mycin patient had MRSA infection, ID consulted for abx recommendations as treatment is expected to continue through 05/04. -COPD continues to smoke, counseling was provided patient with continued on inhalational treatments -Diabetes mellitus -History of DVT in the past -Hyperlipidemia -Hypertension -Sleep Apnea Uses CPAP Machine at Home Plan: Will have patient evaluated by infectious disease for abdominal wound abscess that is being followed in the outpatient setting. Patient needs ID abx recommendations to continue care with [facility] and home care. Patient will be discharged in the am once ID has evaluated him. Objective - Vital Signs Vital signs: Vital Signs Temp 98.7 F 04/24/21 04:40 Pulse 72 04/24/21 08:56 Resp 20 04/24/21 07:34 BP 156/62 04/24/21 04:40 Pulse Ox 95 04/24/21 08:44 Intake & Output 04/23/21 04/24/21 04/24/21 18:59 06:59 18:59 Intake Total 240 100 Output Total 1900 Balance -1660 100 Intake: Oral 240 100 Output: Urine 1900 Other: Voiding Method Toilet Toilet Toilet Urinal Urinal Urinal # Voids 3 - Labs CBC & Chem 7: 04/22/21 15:26 04/24/21 06:00 Labs: Abnormal Lab Results - Last 24 Hours (Table) 04/22/21 04/24/21 Range/Units 15:26 06:00 Glucose 172 H (74-99) mg/dL Calcium 8.3 L (8.4-10.2) mg/dL Triglycerides 150.00 H (0.00-149.00) mg/dL
[2021-04-25 04:34] VITALS: BP 146/83; TEMP 98.1
[2021-04-25] MEDS: IPRATROPIUM 0.5 MG/2.5 ML NEBU INHALATION SCH ×2 (07:30→10:58)
[2021-04-25 07:44] VITALS: PULSE 82
[2021-04-25] MEDS: ASPIRIN 81 MG PO SCH (08:31)
[2021-04-25] MEDS: GABAPENTIN 300 MG CAP PO SCH (08:31)
[2021-04-25] MEDS: FOLIC ACID 1 MG TAB PO SCH (08:31)
[2021-04-25] MEDS: CALCIUM CARB-VIT D 500 MG-5 MCG TAB PO SCH (08:31)
[2021-04-25] MEDS: NICOTINE 21MG/24HR PATCH TRANSDERM SCH (08:31)
[2021-04-25] MEDS: FERROUS SULFATE 325 MG TAB PO SCH (08:31)
[2021-04-25] MEDS: CLOPIDOGREL 75 MG TAB PO SCH (08:31)
[2021-04-25] MEDS: metFORMIN 500 MG TAB PO SCH (08:31)
--- NOTE | 2021-04-25 13:38 | PN ---
PROGRESS NOTE DATE OF SERVICE: 04/25/2021 REASON FOR FOLLOWUP VISIT: Infected abdominal wound. INTERVAL HISTORY: The patient is afebrile. The patient is currently breathing comfortably. Denies having any chest pain, shortness of breath or cough. Abdominal pain is currently controlled. No vomiting or any diarrhea. PHYSICAL EXAMINATION: Blood pressure 146/83, pulse of 81, temperature 98.1. He is 95% on room air. General description is a middle-aged male up in the room in no distress. Respiratory system: Unlabored breathing, clear to auscultation anteriorly. Heart S1, S2. Regular rate and rhythm. Abdomen soft, no tenderness. LABS: No new labs have been obtained today. DIAGNOSTIC IMPRESSION AND PLAN: Patient with abdominal wound from an infected hematoma that was drained. Culture positive for MRSA. The patient to continue with vancomycin, pharmacy to dose target of 15 until 05/04/2021. Local wound care with wound VAC and close outpatient followup. MMODL / IJN: [id number] /
[2021-04-26] MEDS ORDERED: VANCOMYCIN TROUGH DUE 1 EACH MISC MISCELLANE ONE (03:00)
--- NOTE | 2021-04-27 09:34 | P.DS ---
Providers Date of admission: 04/22/21 18:06 Expected date of discharge: 04/25/21 Attending physician: Steven Mendoza MD Consults: 04/22/21 18:06 Consult Physician Routine Consulting Provider: Reno Gonzalez Consult Reason/Comments: TIA Do you want consulting provider notified?: Yes 04/24/21 15:50 Consult Physician Urgent Consulting Provider: Radha Lehman Consult Reason/Comments: Abdominal wall cellulitis, known to patient Do you want consulting provider notified?: Yes Primary care physician: Izaiah Garcia Hospital Course: Final diagnosis -Brief episode of confusion patient was evaluated for TIA patient probably has a transient global amnesia. -Abdominal wall infection for which patient is on IV antibiotics at home, patient had MRSA infection -COPD, not in acute exacerbation -continued ongoing nicotine dependence -Diabetes mellitus -History of DVT in the past -Hyperlipidemia -Hypertension -Sleep Apnea Uses CPAP Machine at Home Discharge disposition Patient is being discharged in a stable condition with guarded prognosis to home. Patient will follow-up with Dr. Garcia in the outpatient setting upon discharge. Patient will also follow-up with infectious disease in the wound center along with neurology in the outpatient setting in 1 week. Patient will continue on IV vancomycin per infectious disease recommendations. Patient to continue on anti-dual platelet for 3 weeks and then continue indefinitely with Plavix. Total time taken is greater than 35 minutes. Hospital course 60-year-old pleasant male came in with the an episode of confusion briefly without any significant speech abnormality or any other weakness or tingling numbness anywhere in the body. Patient is admitted for evaluation for TIA. CT of the head was negative. Patient is on IV vancomycin for the abdominal wall infection patient also has a wound VAC and patient does have history of sleep apnea uses CPAP machine and question is briefly being held because of concerns of ALLERGIC rash which I did not appreciated patient has been on mitomycin for about a month because of which I do not believe patient has ALLERGIC reaction to vancomycin this will be resumed patient has a PICC line in the left arm which was placed about a month ago side of which doesn't appear to be infected patient doesn't have any fever chills. Patient is alert oriented 3, episode only l asted for few minutes. 04/24/2021 Patient was seen in follow up today with no acute overnight issues. Patient has remained on aspirin and being started on plavix with neurology following. Patient has been normal sinus on tele and 2d echo shows ef of 55-60%. Patient remains on wound vac and IV vanco with a picc line as he has been being treated in the outpatient setting for an abdominal wound abscess. Infectious disease consulted for evaluation and discharge antibiotic recommendation as a requirement from [facility] to continue his wound care and IV abx management. 04/25/2021 Patient was seen and evaluated this morning no acute overnight issues. Patient was seen and evaluated by infectious disease recommending continuing IV antibiotic therapy and prescription was sent to [facility] and patient will follow-up at the wound center as discussed and scheduled. Patient will also continue on aspirin and Plavix for 3 weeks and then indefinitely continue Plavix and needs close outpatient follow-up with neurology. He should continue with the wound VAC as well and continue with home care. Currently no reports of chest pain, shortness of breath, or palpitations. Patient is afebrile. No reports of nausea or vomiting and patient is tolerating diet. Patient will be discharged home today GENERAL: The patient is alert and oriented x3, not in any acute distress. Well developed, well nourished. HEENT: Pupils are round and equally reacting to light. EOMI. No scleral icterus. No conjunctival pallor. Normocephalic, atraumatic. No pharyngeal erythema. No thyromegaly. CARDIOVASCULAR: S1 and S2 present. No murmurs, rubs, or gallops. PULMONARY: Chest is clear to auscultation, no wheezing or crackles. ABDOMEN: Soft, nontender, nondistended, normoactive bowel sounds. No palpable organomegaly. MUSCULOSKELETAL: No joint swelling or deformity. EXTREMITIES: No cyanosis, clubbing, patient does have bilateral lower extremity edema pitting and only limited to both feet NEUROLOGICAL: Gross neurological examination did not reveal any focal deficits. SKIN: Patient has wound VAC in the right lower abdomen. Please refer to medication reconciliation sheet for a list of medications. Patient Condition at Discharge: Stable Plan - Discharge Summary Discharge Rx Participant: Yes New Discharge Prescriptions: New Folic Acid 1 mg PO DAILY 30 Days #30 tab Clopidogrel [Plavix] 75 mg PO DAILY 30 Days #30 tab Continue DULoxetine HCL [Cymbalta] 60 mg PO HS Omeprazole [PriLOSEC] 40 mg PO HS traZODone HCL 100 mg PO HS Atorvastatin [Lipitor] 80 mg PO HS Albuterol Sulfate [Proair Hfa] 2 puff INHALATION RT-Q6H PRN PRN Reason: Shortness Of Breath Tiotropium [place] [Spiriva Respimat] 2 puff INHALATION RT-DAILY Gabapentin [Neurontin] 300 mg PO TID Multivitamins, Thera [Multivitamin (formulary)] 1 tab PO HS Acetaminophen Tab [Tylenol] 650 mg PO Q6HR PRN #30 tab PRN Reason: Mild Pain Or Fever > 100.5 HYDROcodone/APAP 7.5-325MG [[place] 7.5-325] 1 tab PO Q6HR PRN PRN Reason: Pain Calcium Carbonate/Vitamin D3 [Calcium 600-Vit D3 10 mcg (400 Iu)] 2 tab PO DAILY Ferrous Sulfate [Iron (65 MG Elemental)] 325 mg PO BID Aspirin EC [Ecotrin Low Dose] 81 mg PO DAILY Nicotine 21Mg/24Hr Patch [Habitrol] 1 patch TRANSDERM DAILY #20 patch metFORMIN HCL [Glucophage] 1,000 mg PO BID Triamcinolone 0.1% Cream [Kenalog 0.1% Cream] 1 applicatio TOPICAL BID Vancomycin/0.9 % Sod Chloride [Vanco 750 mg/250 ml-0.9% NaCl] 2.4 gm IV DIRECTED Discharge Medication List DULoxetine HCL [Cymbalta] 60 mg PO HS 10/08/17 [History] Omeprazole [PriLOSEC] 40 mg PO HS 11/20/18 [History] traZODone HCL 100 mg PO HS 11/20/18 [History] Atorvastatin [Lipitor] 80 mg PO HS 07/07/19 [History] Albuterol Sulfate [Proair Hfa] 2 puff INHALATION RT-Q6H PRN 04/30/20 [History] Gabapentin [Neurontin] 300 mg PO TID 09/29/20 [History] Tiotropium [place] [Spiriva Respimat] 2 puff INHALATION RT-DAILY 09/29/20 [History] Calcium Carbonate/Vitamin D3 [Calcium 600-Vit D3 10 mcg (400 Iu)] 2 tab PO DAILY 11/14/20 [History] Ferrous Sulfate [Iron (65 MG Elemental)] 325 mg PO BID 11/14/20 [History] Multivitamins, Thera [Multivitamin (formulary)] 1 tab PO HS 11/14/20 [History] Aspirin EC [Ecotrin Low Dose] 81 mg PO DAILY 02/20/21 [History] Acetaminophen Tab [Tylenol] 650 mg PO Q6HR PRN #30 tab 03/30/21 [Rx] Nicotine 21Mg/24Hr Patch [Habitrol] 1 patch TRANSDERM DAILY #20 patch 03/30/21 [Rx] HYDROcodone/APAP 7.5-325MG [[place] 7.5-325] 1 tab PO Q6HR PRN 04/22/21 [History] Triamcinolone 0.1% Cream [Kenalog 0.1% Cream] 1 applicatio TOPICAL BID 04/22/21 [History] Vancomycin/0.9 % Sod Chloride [Vanco 750 mg/250 ml-0.9% NaCl] 2.4 gm IV DIRECTED 04/22/21 [History] metFORMIN HCL [Glucophage] 1,000 mg PO BID 04/22/21 [History] Clopidogrel [Plavix] 75 mg PO DAILY 30 Days #30 tab 04/24/21 [Rx] Folic Acid 1 mg PO DAILY 30 Days #30 tab 04/24/21 [Rx] Follow up Appointment(s)/Referral(s): [facility], [NON-STAFF] - 1 Week Omid Puentes MD [Medical Doctor] - 1 Week (Patient will have to call and schedule own appt.) [facility] [NON-STAFF] - 1 Week (Please call the wound care center you usally go to .) Izaiah Garcia DO [Primary Care Provider] - 05/02/21 3:20 pm Radha Lehman MD [STAFF PHYSICIAN] - 05/07/21 2:15 pm Patient Instructions/Handouts: Transient Ischemic Attack (DC), Hemoglobin A1c (GEN), Type 2 Diabetes Management for Adults (DC) Activity/Diet/Wound Care/Special Instructions: Activity Limited until follow-up Follow-up with primary care provider on discharge Continue with aspirin and Plavix for 21 days and then may discontinue aspirin Continue taking Medications as prescribed Continue with home care and wound care Follow up with neurology in the outpatient setting in 1 week Discharge Disposition: HOME WITH HOME HEALTH SERVICES
== END 2021-04-25 12:47 | disposition home health service (06) ==
LOC: EC 14:10 → 5NMEDONC 18:06
PROVIDERS: ADMIT Internal Medicine; ATTEND Internal Medicine
DX: R41.0 Disorientation, unspecified (principal); T81.49XA Infection following a procedure, other surgical site, initial encounter; L03.311 Cellulitis of abdominal wall; B95.62 Methicillin resistant Staphylococcus aureus infection as the cause of diseases classified elsewhere; J44.9 Chronic obstructive pulmonary disease, unspecified; E11.9 Type 2 diabetes mellitus without complications; Z86.718 Personal history of other venous thrombosis and embolism; E78.5 Hyperlipidemia, unspecified; I10 Essential (primary) hypertension; G47.30 Sleep apnea, unspecified; R47.81 Slurred speech; R53.1 Weakness; M79.89 Other specified soft tissue disorders; L02.211 Cutaneous abscess of abdominal wall; F41.9 Anxiety disorder, unspecified; F32.9 Major depressive disorder, single episode, unspecified; E89.0 Postprocedural hypothyroidism; F17.210 Nicotine dependence, cigarettes, uncomplicated; R60.9 Edema, unspecified; D64.9 Anemia, unspecified; K21.9 Gastro-esophageal reflux disease without esophagitis; E66.9 Obesity, unspecified; Z68.38 Body mass index [BMI] 38.0-38.9, adult; Z20.822 Contact with and (suspected) exposure to COVID-19; Z95.9 Presence of cardiac and vascular implant and graft, unspecified; Z71.6 Tobacco abuse counseling; Z98.890 Other specified postprocedural states; Z96.651 Presence of right artificial knee joint; Z85.038 Personal history of other malignant neoplasm of large intestine; Z87.442 Personal history of urinary calculi; Z79.899 Other long term (current) drug therapy; Z79.82 Long term (current) use of aspirin; Z79.02 Long term (current) use of antithrombotics/antiplatelets; Z79.84 Long term (current) use of oral hypoglycemic drugs; Z16.24 Resistance to multiple antibiotics; Z78.9 Other specified health status; Z82.49 Family history of ischemic heart disease and other diseases of the circulatory system; Z83.3 Family history of diabetes mellitus; Z81.8 Family history of other mental and behavioral disorders; Z84.1 Family history of disorders of kidney and ureter
CPT/HCPCS: 96365; 96366 ×3; 96375 ×2; 99285; 36415; 94640 ×5; 94760 ×2; 93005; 80061; 80053; 80048; 84484; 85025; 85610; 85730; 80202; 87635; 71046; 93880; 70450; G0378 ×4; C8929; S4990 ×3; J3370 ×3; J1200; J1940; Q9950; 93306

== ENCOUNTER 2021-09-25 06:35 | Day surgery (SDC) | payer MEDICARE ==
[2021-09-21 15:03] VITALS: BMI 39.4
[~2021-09-25 06:35] MED LIST changes: +ACETAMINOPHEN TAB 500 MG TAB PO PRN; +DEXAMETHASONE SOD PHOSPHATE 4 MG/ML 1 ML VIAL IV ONE; +HEPARIN SODIUM,PORCINE/PF 5,000 UNIT/0.5 ML SYRINGE SQ PRN; +LIDOCAINE 1% (10MG/ML) FOR IV START INTRADERMA PRN; +ONDANSETRON 4 MG/2 ML VIAL IVP ONE; +Pre Op ABX Message 1 EACH MISC MISCELLANE ONE
[2021-09-25] MEDS ORDERED: HYDROmorphone 0.5 MG/0.5 ML SYRINGE IVP PRN (07:00)
[2021-09-25 07:30] LABS: Glucose,Whole Blood 150 mg/dL (75-99)
[2021-09-25] MEDS ORDERED: PROPOFOL 10 MG/ML 20 ML VIAL IV ONE (07:48)
[2021-09-25] MEDS ORDERED: LIDOCAINE 1% INJ 10MG/ML (20 ML MDV) ONE (07:48)
[2021-09-25] MEDS ORDERED: SUCCINYLCHOLINE CHLORIDE VIAL 200 MG/10 ML VIAL IV ONE (07:48)
[2021-09-25] MEDS ORDERED: ROCURONIUM 10 MG/ML (5 ML VIAL) IV ONE (07:48)
[2021-09-25] MEDS ORDERED: GLYCOPYRROLATE 0.2 MG/ML 2 ML VIAL ONE (07:48)
[2021-09-25] MEDS ORDERED: fentaNYL (PF) 50 MCG/ML 2 ML AMP ONE (07:48)
[2021-09-25] MEDS ORDERED: MIDAZOLAM 2 MG/2 ML VIAL ONE (07:48)
[2021-09-25] MEDS ORDERED: NEOSTIGMINE 1 MG/ML 10 ML VIAL ONE (07:48)
[2021-09-25] MEDS ORDERED: SODIUM CHLORIDE 0.9% 50 ML with ceFAZolin 3,000 MG IV ONE ×2 (07:52)
[2021-09-25] MEDS ORDERED: LACTATED RINGERS IV ONE ×2 (07:52)
[2021-09-25] MEDS ORDERED: SODIUM CHLORIDE 0.9% 50 ML with ceFAZolin 1,000 MG IV ONE ×2 (07:52)
[2021-09-25] MEDS ORDERED: CEFAZOLIN IV ONE ×2 (07:52)
[2021-09-25 08:48] VITALS: RESP 16; TEMP 97.6
--- NOTE | 2021-09-25 08:49 | P.GSHP ---
History of Present Illness H&P Date: 09/25/21 Chief Complaint: Abdominal wall abscess This a 61-year-old male who presents today for abdominal wall debridement. Patient has a chronic draining abscess in the right lower quadrant. Patient is a type I diabetic. He has had poor glucose control. His last hemoglobin A1c w as 9.7. Past Medical History Past Medical History: Asthma, Cancer, COPD, Diabetes Mellitus, Deep Vein Thrombosis (DVT), GERD/Reflux, Hyperlipidemia, Hypertension, Sleep Apnea/CPAP/BIPAP Additional Past Medical History / Comment(s): Colon cancer diagnosed 10/01/20. Parathyroid cancer. Recurrent abdominal infections and wounds from hernia repair and mesh, wound vac in past. Edema BLE. Kidney stones History of Any Multi-Drug Resistant Organisms: MRSA Date of last positivie culture/infection: unk MDRO Source:: right abdomen Past Surgical History: Appendectomy, Hernia Repair, Joint Replacement Additional Past Surgical History / Comment(s): Right knee REPLACED. Hernia repair w/ mesh removal 04/10/20. Hernia mesh removed 10/01/20. 3/4 Parathyroid removal surgery 01/18/2020. Tumor removal small intestine 10/01/20 Past Anesthesia/Blood Transfusion Reactions: No Reported Reaction Past Psychological History: Anxiety, Depression Smoking Status: Current some day smoker Past Alcohol Use History: None Reported Past Drug Use History: Marijuana Additional Drug Use History / Comment(s): occasionally used for pain - Past Family History Mother History Unknown: Yes Family Medical History: Dementia, Diabetes Mellitus, Hyperlipidemia, Renal Disease Additional Family Medical History / Comment(s): dialysis Father Family Medical History: Coronary Artery Disease (CAD), Diabetes Mellitus Medications and Allergies Home Medications Medication Instructions Recorded Confirmed Type DULoxetine HCL [Cymbalta] 60 mg PO HS 10/08/17 09/25/21 History Omeprazole [PriLOSEC] 40 mg PO HS 11/20/18 09/25/21 History traZODone HCL 100 mg PO HS 11/20/18 09/25/21 History Atorvastatin [Lipitor] 80 mg PO HS 07/07/19 09/25/21 History Albuterol Sulfate [Proair Hfa] 2 puff INHALATION RT-Q6H PRN 04/30/20 09/25/21 History Gabapentin [Neurontin] 300 mg PO TID 09/29/20 09/25/21 History Ferrous Sulfate [Iron (65 MG 325 mg PO BID 11/14/20 09/25/21 History Elemental)] Multivitamins, Thera [Multivitamin 1 tab PO HS 11/14/20 09/25/21 History (formulary)] Aspirin EC [Ecotrin Low Dose] 81 mg PO DAILY 02/20/21 09/21/21 History metFORMIN HCL [Glucophage] 1,000 mg PO BID 04/22/21 09/25/21 History Clopidogrel [Plavix] 75 mg PO DAILY 30 Days #30 tab 04/24/21 09/21/21 Rx Folic Acid 1 mg PO DAILY 30 Days #30 tab 04/24/21 09/25/21 Rx Baclofen 1 - 2 tab PO TID PRN 09/21/21 09/25/21 History Calcium Carbonate/Vitamin D3 2 each PO DAILY 09/21/21 09/25/21 History [Calcium 600-D3 20 mcg (800 Unit)] Cholecalciferol [Vitamin D3 (25 25 mcg PO DAILY 09/21/21 09/25/21 History Mcg = 1000 Iu)] Semaglutide [Rybelsus] 3 mg PO DAILY 09/21/21 09/25/21 History Sulfamethox-Tmp 800-160Mg [Bactrim 1 tab PO Q12HR 09/21/21 09/25/21 History DS 800-160 mg] Allergies Allergy/AdvReac Type Severity Reaction Status Date / Time No Known Allergies Allergy Verified 09/25/21 07:09 Surgical - Exam Vital Signs Temp Pulse Resp BP Pulse Ox 97 F L 86 20 123/95 97 09/25/21 07:09 09/25/21 07:09 09/25/21 07:09 09/25/21 07:09 09/25/21 07:09 - General well developed, well nourished, no distress - Eyes PERRL - ENT normal pinna - Neck no masses - Respiratory normal expansion - Cardiovascular Rhythm: regular - Abdomen Chronic draining sinus right lower quadrant there is an area of induration approximately 4 cm in diameter there is some purulent discharge. Abdomen: soft, non tender Results - Labs Abnormal Lab Results - Last 24 Hours (Table) 09/25/21 Range/Units 07:28 POC Glucose (mg/dL) 150 H (75-99) mg/dL Assessment and Plan Assessment: Abdominal wall abscess. We'll perform debridement of abdominal wall
--- NOTE | 2021-09-25 08:51 | P.OP ---
Date of Procedure: 09/25/21 Preoperative Diagnosis: Abdominal wall abscess Postoperative Diagnosis: Abdominal wall abscess Procedure(s) Performed: Debridement of abdominal wall Anesthesia: ERIN Surgeon: Guido Jacobson Estimated Blood Loss (ml): 10 Pathology: other (Wound culture, abdominal wall debridement) Condition: stable Disposition: PACU Description of Procedure: The patient's placed on the operating table in the supine position. He received general endotracheal anesthesia. His abdomen was prepped and draped usual fashion. The right lower quadrant there is a chronic draining sinus. The area was cultured. The wound was probed. The abscess cavity approximately 4 cm deep. Using an elliptical skin incision the area around the abscess cavity was incised. And then using electrocautery the subcutaneous tissue was divided down to the level of the fascia. There was no infected suture or mesh seen in the area. The specimen was sent to pathology. Hemostasis achieved A cautery. And then the wound was packed with Kerlix. Sterile dressings was applied. Patient top she will he was sent to recovery in stable condition.
[2021-09-25 09:12] LABS: Glucose,Whole Blood 172 mg/dL (75-99)
[2021-09-25] MEDS ORDERED: KETOROLAC 30 MG/ML 1 ML VIAL ONE (09:45)
[2021-09-25] MEDS ORDERED: KETOROLAC 15 MG/ML 1 ML VIAL IVP ONE (09:48)
[2021-09-25 10:02] VITALS: BP 123/70; PULSE 67
--- NOTE | 2021-09-25 11:30 | P.CONS ---
History of Present Illness - Reason for Consult Consult date: 09/25/21 wound care - History of Present Illness This is a 61-year-old male known to the wound care center with multiple abdominal ulcerations previously. At this time patient has a right lower quadrant abdominal abscess that had a chronic draining sinus with purulent drainage. Patient underwent an abdominal wall debridement. At this time he has wet-to-dry dressings in place. Home care set up for him. Patient has past medical history for type 2 diabetes recent hemoglobin A1c 9.7, tobacco dependence. Review Of Systems: Constitutional: No fever, no chills, no night sweats. No weight change. No weakness, fatigue or lethargy. No daytime sleepiness. Integumentary:reports wounds, no lesions. No rash or pruritus. No unusual bruising. No change in hair or nails. Physical exam: General Appearance: Alert, cooperative, no distress, appears stated age. Skin: See HPI all other Skin color, texture, tugor normal, no rashes or lesions. Neurologic: Alert oriented x3 Assessment: 1. Nonhealing ulceration abdominal with muscle involvement without necrosis 2. Diabetes with skin ulceration Plan: 1. Continue with wet-to-dry dressing with homecare. Patient is scheduled in the wound care center on October 04. Thank you for the consultation any questions was contact the wound care center DNP note has been reviewed and discussed with Dr. Goff and the impression and plan of care has been directed as dictated. Past Medical History Past Medical History: Asthma, Cancer, COPD, Diabetes Mellitus, Deep Vein Thrombosis (DVT), GERD/Reflux, Hyperlipidemia, Hypertension, Sleep Apnea/CPAP/BIPAP Additional Past Medical History / Comment(s): Colon cancer diagnosed 10/01/20. Parathyroid cancer. Recurrent abdominal infections and wounds from hernia r epair and mesh, wound vac in past. Edema BLE. Kidney stones History of Any Multi-Drug Resistant Organisms: MRSA Year Discovered:: unk MDRO Source:: right abdomen Past Surgical History: Appendectomy, Hernia Repair, Joint Replacement Additional Past Surgical History / Comment(s): Right knee REPLACED. Hernia repair w/ mesh removal 04/10/20. Hernia mesh removed 10/01/20. 3/4 Parathyroid removal surgery 01/18/2020. Tumor removal small intestine 10/01/20 Past Anesthesia/Blood Transfusion Reactions: No Reported Reaction Past Psychological History: Anxiety, Depression Smoking Status: Current some day smoker Past Alcohol Use History: None Reported Past Drug Use History: Marijuana Additional Drug Use History / Comment(s): occasionally used for pain - Past Family History Mother History Unknown: Yes Family Medical History: Dementia, Diabetes Mellitus, Hyperlipidemia, Renal Disease Additional Family Medical History / Comment(s): dialysis Father Family Medical History: Coronary Artery Disease (CAD), Diabetes Mellitus Medications and Allergies Home Medications Medication Instructions Recorded Confirmed Type DULoxetine HCL [Cymbalta] 60 mg PO HS 10/08/17 09/25/21 History Omeprazole [PriLOSEC] 40 mg PO HS 11/20/18 09/25/21 History traZODone HCL 100 mg PO HS 11/20/18 09/25/21 History Atorvastatin [Lipitor] 80 mg PO HS 07/07/19 09/25/21 History Albuterol Sulfate [Proair Hfa] 2 puff INHALATION RT-Q6H PRN 04/30/20 09/25/21 History Gabapentin [Neurontin] 300 mg PO TID 09/29/20 09/25/21 History Ferrous Sulfate [Iron (65 MG 325 mg PO BID 11/14/20 09/25/21 History Elemental)] Multivitamins, Thera [Multivitamin 1 tab PO HS 11/14/20 09/25/21 History (formulary)] Aspirin EC [Ecotrin Low Dose] 81 mg PO DAILY 02/20/21 09/21/21 History metFORMIN HCL [Glucophage] 1,000 mg PO BID 04/22/21 09/25/21 History Clopidogrel [Plavix] 75 mg PO DAILY 30 Days #30 tab 04/24/21 09/21/21 Rx Folic Acid 1 mg PO DAILY 30 Days #30 tab 04/24/21 09/25/21 Rx Baclofen 1 - 2 tab PO TID PRN 09/21/21 09/25/21 History Calcium Carbonate/Vitamin D3 2 each PO DAILY 09/21/21 09/25/21 History [Calcium 600-D3 20 mcg (800 Unit)] Cholecalciferol [Vitamin D3 (25 25 mcg PO DAILY 09/21/21 09/25/21 History Mcg = 1000 Iu)] Semaglutide [Rybelsus] 3 mg PO DAILY 09/21/21 09/25/21 History Sulfamethox-Tmp 800-160Mg [Bactrim 1 tab PO Q12HR 09/21/21 09/25/21 History DS 800-160 mg] Allergies Allergy/AdvReac Type Severity Reaction Status Date / Time No Known Allergies Allergy Verified 09/25/21 07:09 Physical Exam Vitals: Vital Signs Temp Pulse Pulse Resp BP Pulse Ox 09/25/21 10:01 67 16 123/70 96 09/25/21 09:47 63 16 124/73 98 09/25/21 09:21 63 16 115/78 100 09/25/21 09:15 63 16 119/68 94 L 09/25/21 09:00 62 16 116/67 100 09/25/21 08:45 68 16 127/63 100 09/25/21 08:34 97.6 F 82 16 116/65 99 09/25/21 07:09 97 F L 86 20 123/95 97 Intake and Output 09/24/21 09/25/21 09/25/21 22:59 06:59 14:59 Intake Total 100 550 Output Total 10 Balance 100 540 Intake: IV 100 550 Output: Estimated Blood Loss 10 Other: Weight 126 kg Results Labs: Abnormal Lab Results - Last 24 Hours (Table) 09/25/21 09/25/21 Range/Units 07:28 09:10 POC Glucose (mg/dL) 150 H 172 H (75-99) mg/dL Assessment and Plan (1) Diabetes with skin ulcer Current Visit: No Status: Acute Code(s): E11.622 - TYPE 2 DIABETES MELLITUS WITH OTHER SKIN ULCER; L98.499 - NON-PRESSURE CHRONIC ULCER OF SKIN OF SITES W UNSP SEVERITY SNOMED Code(s): 70320668 (2) Non-pressure chronic ulcer of skin of other sites with muscle involvement without evidence of necrosis Current Visit: No Status: Acute Code(s): L98.495 - NON-PRS CHR ULC SKIN/ OTH SITE WITH MSL INVL W/O EVD OF NECR SNOMED Code(s): 50515978
== END 2021-09-25 11:02 | disposition home health service (06) ==
LOC: OR 06:35
PROVIDERS: ATTEND Surgery
DX: L02.211 Cutaneous abscess of abdominal wall (principal); K65.4 Sclerosing mesenteritis; J44.9 Chronic obstructive pulmonary disease, unspecified; E10.9 Type 1 diabetes mellitus without complications; Z86.718 Personal history of other venous thrombosis and embolism; K21.9 Gastro-esophageal reflux disease without esophagitis; E78.5 Hyperlipidemia, unspecified; I10 Essential (primary) hypertension; G47.30 Sleep apnea, unspecified; Z85.038 Personal history of other malignant neoplasm of large intestine; Z85.858 Personal history of malignant neoplasm of other endocrine glands; Z87.442 Personal history of urinary calculi; Z90.49 Acquired absence of other specified parts of digestive tract; Z86.14 Personal history of Methicillin resistant Staphylococcus aureus infection; Z96.651 Presence of right artificial knee joint; Z98.890 Other specified postprocedural states; F41.9 Anxiety disorder, unspecified; F32.A Depression, unspecified; Z81.8 Family history of other mental and behavioral disorders; Z83.3 Family history of diabetes mellitus; Z84.1 Family history of disorders of kidney and ureter; Z82.49 Family history of ischemic heart disease and other diseases of the circulatory system; Z79.84 Long term (current) use of oral hypoglycemic drugs; Z79.02 Long term (current) use of antithrombotics/antiplatelets; Z79.82 Long term (current) use of aspirin; Z79.899 Other long term (current) drug therapy
CPT/HCPCS: 88304; 87070; 87205; 87075; 11005; J2250; J0330; J1100; J2710; J2405; J0690; J2001; J3010; J1885; J2704; J1170; J1644

== ENCOUNTER → 2022-02-07 | Outpatient (CLI) | payer MEDICARE ==
[2022-02-07 11:42] LABS: African American GFR (CKD) >90 (>60 ml/min/1.73 sqM); Blood Urea Nitrogen 11 mg/dL (9-20); Non-African American GFR(CKD) >90 (>60 ml/min/1.73 sqM)
--- NOTE | 2022-02-07 12:54 | CT ---
EXAMINATION TYPE: CT abdomen pelvis wo/w con CT DLP: 3752.6 mGycm, Automated exposure control for dose reduction was used. DATE OF EXAM: 02/07/2022 12:26 PM COMPARISON: CT abdomen pelvis most recent from 03/27/2021. CLINICAL INDICATION:Male, 61 years old with history of L98.495 non pressure chronic ulcer; Non pressu re chronic ulcer TECHNIQUE: Axial CT of the abdomen and pelvis . Sagittal and coronal reformats were created on a [employer] workstation. Contrast used:70 ML mL of Isovue 300 with IV Contrast, Oral contrast used: with Oral Contrast FINDINGS: LOWER CHEST: Unremarkable ABDOMEN LIVER: Unremarkable GALLBLADDER AND BILE DUCTS: Unremarkable. PANCREAS: Unremarkable. SPLEEN: Unremarkable. ADRENAL GLANDS: Unremarkable. KIDNEYS AND URETERS: Nonobstructing right calculus measuring 3 mm. The left kidney severely atrophic. Left adrenal nodule consistent with benign lipid rich adrenal adenoma measuring 2.0 cm. PELVIS BLADDER: Unremarkable REPRODUCTIVE: Unremarkable. ABDOMEN & PELVIS STOMACH AND BOWEL: No evidence of bowel obstruction. Ventral wall hernia containing loops of small b owel as described below. PERITONEUM: No evidence of pneumoperitoneum or free fluid. VASCULATURE: No evidence of aortic aneurysm. MUSCULOSKELETAL: No acute osseous abnormalities, multilevel disc degeneration changes throughout the spine. LYMPH NODES: No gross evidence for lymphadenopathy. SOFT TISSUE/ABDOMINAL WALL: Ventral wall hernia containing loops of small bowel measuring 5.3 cm at t he neck. No evidence of strangulation or bowel obstruction. Additional fat-containing ventral hernia measuring at least 6 cm at the neck. Prior abscess has resolved. Streaky soft tissue seen along the p rior abscess location likely representing scarring. There is bandage in place with skin irregularity along the epidermis in this location. No organizing fluid collection. IMPRESSION: 1. Prior right abdominal wall abscess from 03/27/2021 has resolved. There remains probable scarring al sonia its tract. No organizing fluid collections on this exam. Soft tissue skin defect is seen with pro bable bandage along the right abdominal wall. 2. Large ventral wall hernia containing loops of small bowel. No evidence simulation or bowel obstru ction. No additional acute abdominal finding. 3. Bilateral nonobstructing renal calculi.
== END | disposition home or self-care (01) ==
LOC: RADCTMAIN 10:03
PROVIDERS: ATTEND Thoracic Surgery (Cardiothoracic Vascular Surgery)
DX: L98.495 Non-pressure chronic ulcer of skin of other sites with muscle involvement without evidence of necrosis (principal); N20.0 Calculus of kidney; K44.9 Diaphragmatic hernia without obstruction or gangrene
CPT/HCPCS: 82565; 84520; 74178; 36415; Q9967 ×2

== ENCOUNTER → 2022-02-14 | Outpatient (CLI) | payer MEDICARE ==
--- NOTE | 2022-02-14 09:51 | MR ---
EXAMINATION TYPE: MR angio head wo con DATE OF EXAM: 02/14/2022 COMPARISON: NONE HISTORY: Headache, dizziness. TECHNIQUE: Utilizing 3-D [id number] intracranial MRA of the [place] of [place] was performed. FINDINGS: The vertebrobasilar and carotid systems are patent. There is no sizable aneurysm or vascular malform ation. Left vertebral artery dominant. IMPRESSION: 1. No evidence of vascular malformation or sizable aneurysm.
--- NOTE | 2022-02-14 09:54 | MR ---
EXAMINATION TYPE: MR brain wo con DATE OF EXAM: 02/14/2022 COMPARISON: MRI IAC HISTORY: Headache, dizziness. TECHNIQUE: T1-weighted sagittal, T2, FLAIR, and diffusion axial, and T2 coronal coronal views of the brain are submitted. FINDINGS: There is no evidence of acute ischemia. Mild generalized degenerative change. Faint confluent multipl e focal areas of abnormal signal in the white matter are nonspecific but most There is no mass effect . Craniocervical junction maintained. Sella turcica has a normal appearance. Changes of chronic mastoid itis greater on the right. Changes of chronic sinusitis seen. Orbits are symmetric. IMPRESSION: 1. No acute intracranial process 2. Degenerative and nonspecific white matter changes most typical of remote ischemia. 3. Chronic mastoiditis and sinusitis.
--- NOTE | 2022-02-15 04:57 | MR ---
EXAMINATION TYPE: MR hip RT wo con DATE OF EXAM: 02/14/2022 COMPARISON: None HISTORY: Right hip pain. Multiplanar multi echo imaging of the pelvis and right hip with no contrast. There is 3.5 x 2 cm area increased fluid signal in the lateral aspect of the right femoral head exten ding into the femoral neck. There is an apparent horizontal fracture line through the lateral aspect of the femoral head. The superior articular surface of the right femoral head is irregular. There is right hip joint effusion. There is hypertrophic bilateral acetabular spur formation. Sacroiliac joint s are intact. No pelvic mass. No free fluid in the pelvis. There is hypertrophic spurring on the righ t femoral head. IMPRESSION: Edema in the lateral aspect of the femoral head. Nondisplaced horizontal incomplete fracture through the lateral aspect of the femoral head. Moderate osteoarthritis. Hip joint effusion. Irregular superi or articular surface of the femoral head is suspicious for a component of chronic avascular necrosis.
== END | disposition home or self-care (01) ==
LOC: RADMRIMAIN 07:39
PROVIDERS: ATTEND Nurse Practitioner Family
DX: M79.10 Myalgia, unspecified site (principal); M25.551 Pain in right hip; G43.909 Migraine, unspecified, not intractable, without status migrainosus; G45.9 Transient cerebral ischemic attack, unspecified
CPT/HCPCS: 70544; 70551

== ENCOUNTER → 2022-05-21 | Outpatient (CLI) | payer MEDICARE ==
--- NOTE | 2022-05-21 11:31 | XR ---
EXAMINATION TYPE: XR chest 2V DATE OF EXAM: 05/21/2022 COMPARISON: Chest x-ray April 22, 2021 HISTORY: Shortness of breath TECHNIQUE: Frontal and lateral views of the chest are obtained. FINDINGS: Background chronic emphysematous change is present. There is no suspicious new focal air s pace opacity, pleural effusion, or pneumothorax seen. The cardiac silhouette size is stable and with in normal limits. Multilevel spurring in the thoracic spine is redemonstrated. IMPRESSION: Chronic changes without acute pulmonary process. No significant change from prior.
== END | disposition home or self-care (01) ==
LOC: RADXRYALE 11:10
PROVIDERS: ATTEND Family Medicine
DX: R06.02 Shortness of breath (principal)
CPT/HCPCS: 71046

== ENCOUNTER → 2022-06-21 | Outpatient (CLI) | payer MEDICARE ==
--- NOTE | 2022-06-24 08:39 | US ---
EXAMINATION TYPE: US arterial LE single level DATE OF EXAM: 06/21/2022 1:03 PM CLINICAL HISTORY: I73.9 PERIPHERAL VASCULAR DISEASE. Peripheral vascular disease, current smoker, hyp ertension, hyperlipidemia, diabetic, rest pain bilaterally, claudication in the left leg. Patient has had stents placed in the left leg. Doppler Waveforms: Right: Biphasic Left: Monophasic Ankle-Brachial Indices: Right: 1.06 Left: Not performed due to unknown location of stents. Toe Brachial Indices: Right: 0.71 Left: 0.36. Limited due to patient movement. Left popliteal was well audible, but doppler waveform was limited in visibility. IMPRESSION: Normal right-sided GILBERTO and TBI values. Diminished left sided TBI suggesting at least mil d peripheral arterial disease in the left foot. Correlate clinically.
== END | disposition home or self-care (01) ==
LOC: RADUSWWP 11:55
PROVIDERS: ATTEND Family Medicine
DX: I73.9 Peripheral vascular disease, unspecified (principal)
CPT/HCPCS: 93922

== ENCOUNTER → 2022-08-21 | Outpatient (CLI) | payer MEDICARE ==
[2022-08-21 18:38] LABS: ALT 30 U/L (4-49); AST 19 U/L (17-59); African American GFR (CKD) >90 (>60 ml/min/1.73 sqM); Albumin 4.2 g/dL (3.5-5.0); Albumin/Globulin Ratio 1.7; Alkaline Phosphatase 81 U/L (38-126); Anion Gap 6 mmol/L; Blood Urea Nitrogen 17 mg/dL (9-20); Calcium 9.2 mg/dL (8.4-10.2); Carbon Dioxide 30 mmol/L (22-30); Chloride 104 mmol/L (98-107); Globulin 2.5 g/dL; Glucose 154 mg/dL (74-99); Non-African American GFR(CKD) >90 (>60 ml/min/1.73 sqM); Potassium 4.3 mmol/L (3.5-5.1); Sodium 140 mmol/L (137-145); Total Bilirubin 0.3 mg/dL (0.2-1.3); Total Protein 6.7 g/dL (6.3-8.2)
--- NOTE | 2022-08-22 09:34 | CT ---
EXAMINATION TYPE: CT abdomen pelvis wo/w con CT DLP: 3607 mGycm, Automated exposure control for dose reduction was used. DATE OF EXAM: 08/21/2022 7:45 PM COMPARISON: CT abdomen pelvis most recent from 02/07/2022 and 03/27/2021 CLINICAL INDICATION:Male, 62 years old with history of L98.495; f/u mid-abdominal hernia and RLQ woun d/ulcer. TECHNIQUE: Axial CT of the abdomen and pelvis. Sagittal and coronal reformats were created on a [employer] workstation. Contrast used:100 mL of Isovue 300 without and with IV Contrast, Oral contrast used: with Oral Contrast FINDINGS: LOWER CHEST: Unremarkable ABDOMEN LIVER: Unremarkable GALLBLADDER AND BILE DUCTS: Unremarkable. PANCREAS: Unremarkable. SPLEEN: Unremarkable. ADRENAL GLANDS: Unremarkable. KIDNEYS AND URETERS: There is a right 4 mm renal calculus. No evidence of hydronephrosis. No left kerry al calculi or hydronephrosis. PELVIS BLADDER: Unremarkable REPRODUCTIVE: Unremarkable. ABDOMEN & PELVIS STOMACH AND BOWEL: No evidence of bowel obstruction. PERITONEUM/RETROPERITONEUM: No evidence of pneumoperitoneum or free fluid. VASCULATURE: No evidence of aortic aneurysm. Atherosclerosis of the arterial vasculature., Multilevel disc degeneration changes throughout the spine. MUSCULOSKELETAL: No acute osseous abnormalities, end-stage degeneration changes on the right hip. The re is [id number] articulation. The left hip demonstrates degeneration changes with mild osteophyte formation. LYMPH NODES: No gross evidence for lymphadenopathy. SOFT TISSUE/ABDOMINAL WALL: Intra-abdominal wall hernia containing loops of small bowel. No large bow el are seen within a loop. No evidence of bowel wall thickening. No evidence for strangulation. Right lateral anterior abdominal wall probable/postprocedural changes scarring is not significantly c hanged from 02/07/2022. No evidence for organizing fluid collection. Small left fifth toe inguinal hernia. IMPRESSION: 1. Right lateral anterior abdominal wall probable postprocedural changes/ scarring is not significan tly changed from 02/07/2022. No evidence CT for organizing fluid collection. Consider interrogation [facility] ultrasound if clinically concerned for underlying fluid collection. 2. Anterior abdominal wall hernia containing loops of small bowel. 3. Left adrenal nodule measuring 2.0 cm consistent with adrenal lipid rich adenoma. 4. Nonobstructing right renal calculus measuring up to 4 mm.
== END | disposition home or self-care (01) ==
LOC: RADCTMAIN 17:38
PROVIDERS: ATTEND Thoracic Surgery (Cardiothoracic Vascular Surgery)
DX: K43.9 Ventral hernia without obstruction or gangrene (principal); L98.495 Non-pressure chronic ulcer of skin of other sites with muscle involvement without evidence of necrosis; E11.622 Type 2 diabetes mellitus with other skin ulcer; I87.312 Chronic venous hypertension (idiopathic) with ulcer of left lower extremity; L98.492 Non-pressure chronic ulcer of skin of other sites with fat layer exposed; N20.0 Calculus of kidney; E27.9 Disorder of adrenal gland, unspecified
CPT/HCPCS: 80053; 74178; 36415; Q9967

== ENCOUNTER → 2022-10-22 | Outpatient (CLI) | payer MEDICARE ==
--- NOTE | 2022-10-22 09:14 | XR ---
EXAMINATION TYPE: XR chest 2V DATE OF EXAM: 10/22/2022 9:07 AM COMPARISON: Chest radiographs from 05/21/2022 TECHNIQUE: XR chest 2V Frontal and lateral views of the chest. CLINICAL INDICATION:Male, 62 years old with history of J449,R062,R0602 COPD,WHEEZING,SOB; FINDINGS: Lungs/Pleura: There is flattening of the diaphragm with increased lucency of the lungs. No evidence o f pneumothorax, pleural effusion or focal consolidation. Pulmonary vascularity: Unremarkable. Heart/mediastinum: Cardiomediastinal silhouette is unremarkable. Musculoskeletal: Multiple level degenerative disc disease changes seen throughout the spine. No acute osseous abnormality. IMPRESSION: 1. No acute cardiopulmonary disease process. 2. COPD changes.
== END | disposition home or self-care (01) ==
LOC: RADXRYALE 08:52
PROVIDERS: ATTEND Physician Assistant
DX: J44.9 Chronic obstructive pulmonary disease, unspecified (principal); R06.2 Wheezing
CPT/HCPCS: 71046

== ENCOUNTER 2022-11-08 09:25 | Day surgery (SDC) | payer MEDICARE ==
[~2022-11-08 09:25] MED LIST changes: +HYDROmorphone 0.5 MG/0.5 ML SYRINGE IVP PRN; -LIDOCAINE 1% (10MG/ML) FOR IV START INTRADERMA PRN; +MIDAZOLAM 2 MG/2 ML VIAL IV PRN; +SCOPOLAMINE 1 MG/72 HR PATCH TRANSDERM ONE
[2022-11-08 10:00] LABS: Glucose,Whole Blood 121 mg/dL (70-110)
[2022-11-08] MEDS ORDERED: ceFAZolin 3 GM in SODIUM CHLORIDE 0.9% 100 ML IVPB ONE (10:30)
[2022-11-08] MEDS ORDERED: SUCCINYLCHOLINE CHLORIDE 200 MG/10 ML VIAL IV ONE (10:50)
[2022-11-08] MEDS ORDERED: PROPOFOL 10 MG/ML 20 ML VIAL IV ONE (10:50)
[2022-11-08] MEDS ORDERED: fentaNYL (PF) 50 MCG/ML 2 ML AMP ONE (10:50)
--- NOTE | 2022-11-08 11:35 | P.OP ---
Date of Procedure: 11/08/22 Preoperative Diagnosis: Chronic abdominal wall wound Postoperative Diagnosis: Chronic abdominal wound Procedure(s) Performed: Debridement of abdominal wall wound Anesthesia: ERIN Surgeon: Guido Jacobson Estimated Blood Loss (ml): 5 Pathology: other (Abdominal wall fistula) Condition: stable Disposition: PACU Description of Procedure: The patient's placed on the operating room table in the supine position. He received general anesthesia. His abdomen was prepped and draped usual fashion. Patient chronic abdominal wall wound in the lower right quadrant. The wound had a chronic draining sinus. This was probed with a hemostat. The skin was incised over top of the sinus. And then using blunt and sharp dissection with cautery the abdominal wall wound was debrided. The wound measured approximately 12 x 12 x 5 cm. Hemostasis achieved left cautery. The wound was then packed with wet-to-dry Kerlix. Patient top she will well and was sent to recovery in stable condition.
[2022-11-08 11:41] VITALS: TEMP 97.6
[2022-11-08 12:43] VITALS: BP 129/79; PULSE 58; RESP 18
== END 2022-11-08 13:09 | disposition home or self-care (01) ==
LOC: OR 09:25
PROVIDERS: ATTEND Surgery
DX: S31.103A Unspecified open wound of abdominal wall, right lower quadrant without penetration into peritoneal cavity, initial encounter (principal); I10 Essential (primary) hypertension; E78.5 Hyperlipidemia, unspecified; J44.9 Chronic obstructive pulmonary disease, unspecified; F17.200 Nicotine dependence, unspecified, uncomplicated; Z79.82 Long term (current) use of aspirin; Z79.899 Other long term (current) drug therapy
CPT/HCPCS: 11005; 88304; J0330; J1100; J0690; J2405; J3010; J2704; J1644

== ENCOUNTER → 2022-12-12 | Outpatient (CLI) | payer MEDICARE ==
--- NOTE | 2022-12-12 15:10 | XR ---
EXAMINATION TYPE: XR Hip Complete RT DATE OF EXAM: 12/12/2022 12:10 PM INDICATION: Patient age:Male; 62 years old; Reason for study: [id number] RT HIP PAIN COMPARISON: None. TECHNIQUE: The right hip was examined in the frontal and lateral projections and a AP pelvis. FINDINGS: No evidence for acute process, joint dislocation or significant soft tissue swelling. Osteo phyte formation of the superior acetabulum of the right hip with osteophyte of the femoral head with [id number] articulation and sclerosis. IMPRESSION: 1. No evidence for acute process. 2. End-stage right hip osteoarthrosis.
== END | disposition home or self-care (01) ==
LOC: RADXRYALE 11:38
PROVIDERS: ATTEND Physician Assistant
DX: M16.11 Unilateral primary osteoarthritis, right hip (principal)
CPT/HCPCS: 73502

== ENCOUNTER → 2023-01-15 | Outpatient (CLI) | payer MEDICARE ==
[2023-01-15 10:38] VITALS: BP 111/60; PULSE 74; RESP 18; TEMP 98.1
--- NOTE | 2023-01-15 14:16 | P.PAINPG ---
PQRS Measure Charge Sheet Comment: HISTORY OF PRESENT ILLNESS: 62 yr old wheelchair bound male w daughter/ granddaughter at side as a referral from Dr Chacon presents today w severe and chronic R hip pain since 2016 secondary to OA for evaluation. Pt states pain level is provoked at 7/10 in intensity, constant, localized in the R hip, tender in character w shooting pain towards the R toes. Pain is provoked by over activity and weight bearing. Pain is alleviated by PT x 6 wks in 2017 which provoked pain, heat > ice, medications (Percocet, Neurontin, Ibu from Dr [place] sp?), topical, use of a wheelchair and cane for ambulatory assistance, laying supine, repositioning and rest. PMH: OA, Asthma, Colon CA (2020), Parathyroid CA, COPD, DM II, DVT, GERD, Hyperlipidemia, HTN, MARVIN, Nephrolithiasis PSH: Appendectomy, Hernia Repair , Removal (2020), R Knee Replacement SH: Daily tobacco use, No ETOH abuse, Cannabis use for pain mgmt FH: Mo- Demeintia, DMII, Hyperlipidemia, CRF. Fa- CAD, DMII. All: See list Meds: See list REVIEW OF ORGAN SYSTEMS: CONSTITUTIONAL: No fevers or chills. No recent weight loss . NEUROLOGICAL: + numbness and tingling along the distal extremities. No seizure disorders or headaches. MUSCULOSKELETAL: + pain PSYCHIATRIC: Denies current depression or suicidal thoughts. Physical Examinations : Constitutional : Cooperative , not in acute distress . Neurologic : Cranial nerve II to XII intact. No focal neurological deficits. Psychiatric : alert & oriented x 3. Matching mood & appropriate affect. Judgment & insight intact. Musculoskeletal : Cervical Spine Motor strength in the deltoid and biceps: Normal right side. Normal Left side Motor strength biceps and the wrist ext ensors: Normal right side . Normal left side Motor strength in the triceps muscle: Normal right side. Normal left side Deep tendon reflexes: Normal at the biceps. Normal at Brachioradialis. Normal at triceps Vertebral body tenderness to deep palpation over Cervical facet loading test: positive bilaterally Spurling test: positive bilaterally Neck distraction test: positive bilaterally Francisco Javier sign: positive bilaterally Lumbar spine Motor strength lower extremities ,thigh and legs 5/5 Right side , 5/5 Left side Deep tendon reflexes : Normal Knee Jerk. Normal Ankle Jerk Vertebral body tenderness over L4, L5 Navarrete Test positive Lumbar facet Loading Test: positive Right / positive Left Range of motion of the lumbar spine Flexion 30 degrees, extension 10 degrees Straight Leg Raise test: Left/ Right positive at degree Sherri test: positive right / positive left. Severe tenderness over the Sacroiliac joint on the Right / Left sides Gaenslen test: positive bilaterally Seated flexion test: positive bilaterally. Sacral spine : Severe tenderness over the Sacroiliac joint: right side / left side Range of motion: Flexion of the lumbar spine <60 degrees Range of motion: Extension of the lumbar spine <20 degrees Gaenslen's Test positive Adam's Test positive Sherri test: positive right side / left side Thigh Thrust Test Sacral Thrust Test Imaging: X ray of R hip from 12/12/22 reviewed Assessment/ Plan : R Hip OA Recommendation of X ray R Hip re: M51.36. May need additional testing if indicated. All questions answered. I have spent greater than 30 minutes on patient care today. Dr Perry was available by phone for the evaluation of this patient. The time was used to review the medical records including relevant urine studies and Prescription history (MAPs), review of the available imaging, evaluation and examination of the patient, coordination of care with the medical staff and if applicable referring physicians, as well as creation of the medical record PQRS Narrative: Smoking Status Current every day smoker Home Medications: Ambulatory Orders Omeprazole [PriLOSEC] 40 mg PO HS 11/20/18 traZODone HCL 100 mg PO HS 11/20/18 Atorvastatin [Lipitor] 80 mg PO HS 07/07/19 Albuterol Sulfate [Proair Hfa] 2 puff INHALATION RT-Q6H PRN 04/30/20 Gabapentin [Neurontin] 900 mg PO TID 09/29/20 Ferrous Sulfate [Iron (65 MG Elemental)] 325 mg PO BID 11/14/20 Multivitamins, Thera [Multivitamin (formulary)] 1 tab PO HS 11/14/20 Aspirin EC [Ecotrin Low Dose] 81 mg PO DAILY 02/20/21 metFORMIN HCL [Glucophage] 1,000 mg PO BID 04/22/21 Clopidogrel [Plavix] 75 mg PO DAILY 30 Days #30 tab 04/24/21 Folic Acid 1 mg PO DAILY 30 Days #30 tab 04/24/21 Calcium Carbonate/Vitamin D3 [Calcium 600-D3 20 mcg (800 Unit)] 2 each PO Q48H 09/21/21 Cholecalciferol (Vitamin D3) [Vitamin D3] 250 mcg PO WEEKLY 10/25/22 Desvenlafaxine Succinate [Desvenlafaxine Succinate ER] 100 mg PO DAILY 10/25/22 Pramipexole [Mirapex] 0.25 mg PO HS 10/25/22 Controlled Substance Measures - Controlled Substance Measures Is patient prescribed a controlled substance at discharge?: No
== END ==
LOC: PNWHC3 08:04
PROVIDERS: ATTEND Specialist
DX: M16.11 Unilateral primary osteoarthritis, right hip (principal); M51.36 Other intervertebral disc degeneration, lumbar region; M53.3 Sacrococcygeal disorders, not elsewhere classified; F17.200 Nicotine dependence, unspecified, uncomplicated; G89.29 Other chronic pain; J44.9 Chronic obstructive pulmonary disease, unspecified; E11.9 Type 2 diabetes mellitus without complications; E78.5 Hyperlipidemia, unspecified; I10 Essential (primary) hypertension; G47.33 Obstructive sleep apnea (adult) (pediatric); C18.9 Malignant neoplasm of colon, unspecified; C75.0 Malignant neoplasm of parathyroid gland; K21.9 Gastro-esophageal reflux disease without esophagitis; N20.0 Calculus of kidney; Z79.51 Long term (current) use of inhaled steroids; Z79.82 Long term (current) use of aspirin; Z86.718 Personal history of other venous thrombosis and embolism; Z79.84 Long term (current) use of oral hypoglycemic drugs; Z79.01 Long term (current) use of anticoagulants
CPT/HCPCS: 99211

== ENCOUNTER → 2023-02-04 | Outpatient (CLI) | payer MEDICARE ==
--- NOTE | 2023-02-05 00:06 | MR ---
EXAMINATION TYPE: MR lumbar spine wo con DATE OF EXAM: 02/04/2023 COMPARISON: HISTORY: Low Back Pain into von lower extremities CONTRAST: 0 mL intravenous . TECHNIQUE: Multiplanar, multisequence images of the lumbar spine were acquired. FINDINGS: Cord terminates at the L1 level. Disc desiccation is present L3-4 L4-5 and L5-S1. Modic ty pe I degenerative changes are at the L4-5 endplate level. There is disc space narrowing L5-S1 and mil d disc space narrowing L4-5. L5-S1: Mild disc bulge has mild anterior thecal sac compression slightly greater in the left paracent ral region. Contact with the exiting left S1 nerve root is noted. No spinal canal stenosis present. N eural foramen appear patent. Correlate with radicular symptoms. L4-L5: Mild disc bulge has anterior thecal sac contact. No AP spinal canal stenosis is present. Facet hypertrophy is present. Moderate right foraminal narrowing is present. L3-L4: No significant disc bulge or disc herniation. No spinal canal stenosis. No foraminal stenosi s. L2-L3: No significant disc bulge or disc herniation. No spinal canal stenosis. No foraminal stenosi s. L1-L2: No significant disc bulge or disc herniation. No spinal canal stenosis. No foraminal stenosi s. T12-L1: No significant disc bulge or disc herniation. No spinal canal stenosis. No foraminal stenos is. IMPRESSION: 1. Disc bulging L5-S1 with mild anterior thecal sac compression may have some contact with the exitin g left S1 nerve root. Correlate with radicular symptoms. 2. Moderate right foraminal narrowing L4-5. 3. Modic type I endplate degenerative changes of 45.
== END | disposition home or self-care (01) ==
LOC: RADMRIMAIN 12:36
PROVIDERS: ATTEND Specialist
DX: M51.17 Intervertebral disc disorders with radiculopathy, lumbosacral region (principal); M47.816 Spondylosis without myelopathy or radiculopathy, lumbar region; M48.061 Spinal stenosis, lumbar region without neurogenic claudication; M99.73 Connective tissue and disc stenosis of intervertebral foramina of lumbar region
CPT/HCPCS: 72148

== ENCOUNTER → 2023-02-04 | Outpatient (CLI) | payer MEDICARE ==
--- NOTE | 2023-02-04 13:17 | XR ---
EXAMINATION TYPE: XR lumbar spine 2 or 3V DATE OF EXAM: 02/04/2023 COMPARISON: None HISTORY: Degenerative disc disease TECHNIQUE: 2 view lumbar spine FINDINGS: There are 5 lumbar-type vertebral bodies. Pedicles are intact. There is disc space narrowin g L5-S1 and to a lesser degree L2-3 and L3-4 posteriorly and diffusely at L4-5. Vertebral body height s are preserved. Alignment is preserved. IMPRESSION: 1. Degenerative disc changes lumbar spine
== END | disposition home or self-care (01) ==
LOC: RADXRYALE 11:23
PROVIDERS: ATTEND Physician Assistant Medical
DX: M51.36 Other intervertebral disc degeneration, lumbar region (principal)
CPT/HCPCS: 72100

== ENCOUNTER → 2023-02-12 | Outpatient (CLI) | payer MEDICARE ==
[2023-02-12 08:27] VITALS: BP 132/70; PULSE 91; RESP 16; TEMP 98.4
--- NOTE | 2023-02-12 13:38 | P.PAINPG ---
PQRS Measure Charge Sheet Comment: 62 yr old wheelchair bound male w daughter/ granddaughter at side presents today w severe and chronic R hip pain since 2016 secondary to OA for MRI lumbar spine results. Pt states pain level is provoked at 4/10 in intensity, constant, localized in the R hip, tender in character w shooting pain towards the R toes. Pain is provoked by over activity and weight bearing. Pain is alleviated by PT x 6 wks in 2017 which provoked pain, heat > ice, medications (Percocet, Neurontin, Ibu from Dr [place] sp?), topical, use of a wheelchair and cane for ambulatory assistance, laying supine, repositioning and rest. Oswestry axial pain score of 28. Interventional procedures include DENIES Medications include Percocet, Neurontin, Ibu REVIEW OF ORGAN SYSTEMS: CONSTITUTIONAL: No fevers or chills. No recent weight loss. NEUROLOGICAL: + numbness and tingling along the distal extremities. No seizure disorders or headaches. MUSCULOSKELETAL: + pain PSYCHIATRIC: Denies current depression or suicidal thoughts. Physical Examinations : Constitutional : Cooperative , not in acute distress . Neurologic : Cranial nerve II to XII intact. No focal neurological deficits. Psychiatric : alert & oriented x 3. Matching mood & appropriate affect. Judgment & insight intact. Musculoskeletal : Cervical Spine Motor strength in the deltoid and b iceps: Normal right side. Normal Left side Motor strength biceps and the wrist extensors: Normal right side . Normal left side Motor strength in the triceps muscle: Normal right side. Normal left side Deep tendon reflexes: Normal at the biceps. Normal at Brachioradialis. Normal at triceps Vertebral body tenderness to deep palpation over Cervical facet loading test: positive bilaterally Spurling test: positive bilaterally Neck distraction test: positive bilaterally Francisco Javier sign: positive bilaterally Lumbar spine Motor strength lower extremities ,thigh and legs 5/5 Right side , 5/5 Left side Deep tendon reflexes : Normal Knee Jerk. Normal Ankle Jerk Vertebral body tenderness over L5 Navarrete Test positive Lumbar facet Loading Test: positive Right / positive Left Range of motion of the lumbar spine Flexion 30 degrees, extension 10 degrees Straight Leg Raise test: Left/ Right positive at 35 degrees Sherri test: positive right / positive left. Severe tenderness over the Sacroiliac joint on the Right / Left sides Gaenslen test: positive bilaterally Seated flexion test: positive bilaterally. Sacral spine : Severe tenderness over the Sacroiliac joint: right side / left side Range of motion: Flexion of the lumbar spine <60 degrees Range of motion: Extension of the lumbar spine <20 degrees Gaenslen's Test positive Adam's Test positive Sherri test: positive right side / left side Thigh Thrust Test Sacral Thrust Test Imaging: MRI non contrast of lumbar spine from 02/04/23 reviewed Assessment/ Plan : R Hip OA Recommendation of DEEDEE L5-S1 #1. May need a series of injections for optimal pain relief. Risks, benefits of procedure discussed and pt verbalized understanding. Protocol for discontinuation/ continuation of medications jose de jesus procedure discussed. All questions answered. I have spent greater than 30 minutes on patient care today. Dr Perry was available by phone for the evaluation of this patient. The time was used to review the medical records including relevant urine studies and Prescription history (MAPs), review of the available imaging, evaluation and examination of the patient, coordination of care with the medical staff and if applicable referring physicians, as well as creation of the medical record - Pain Location Right Lower Back Non-Pharmacological Interventions: Heat, Position/Reposition Pharmacological Interventions: Medication, PRN Medication, Scheduled Medication PQRS Narrative: Smoking Status Current every day smoker Hx Alcohol Use (MH) No Home Medications: Ambulatory Orders Omeprazole [PriLOSEC] 40 mg PO HS 11/20/18 traZODone HCL 100 mg PO HS 11/20/18 Atorvastatin [Lipitor] 80 mg PO HS 07/07/19 Albuterol Sulfate [Proair Hfa] 2 puff INHALATION RT-Q6H PRN 04/30/20 Gabapentin [Neurontin] 900 mg PO TID 09/29/20 Ferrous Sulfate [Iron (65 MG Elemental)] 325 mg PO BID 11/14/20 Multivitamins, Thera [Multivitamin (formulary)] 1 tab PO HS 11/14/20 Aspirin EC [Ecotrin Low Dose] 81 mg PO DAILY 02/20/21 metFORMIN HCL [Glucophage] 1,000 mg PO BID 04/22/21 Clopidogrel [Plavix] 75 mg PO DAILY 30 Days #30 tab 04/24/21 Folic Acid 1 mg PO DAILY 30 Days #30 tab 04/24/21 Calcium Carbonate/Vitamin D3 [Calcium 600-D3 20 mcg (800 Unit)] 2 each PO Q48H 09/21/21 Cholecalciferol (Vitamin D3) [Vitamin D3] 250 mcg PO WEEKLY 10/25/22 Desvenlafaxine Succinate [Desvenlafaxine Succinate ER] 100 mg PO DAILY 10/25/22 Pramipexole [Mirapex] 0.25 mg PO HS 10/25/22 Controlled Substance Measures - Controlled Substance Measures Is patient prescribed a controlled substance at discharge?: No
== END ==
LOC: PNWHC3 07:51
PROVIDERS: ATTEND Specialist
DX: M16.11 Unilateral primary osteoarthritis, right hip (principal); M16.12 Unilateral primary osteoarthritis, left hip; Z79.82 Long term (current) use of aspirin; F17.200 Nicotine dependence, unspecified, uncomplicated
CPT/HCPCS: 99211

== ENCOUNTER 2023-02-25 07:37 | Day surgery (SDC) | payer MEDICARE ==
[2023-02-25 08:08] LABS: Glucose,Whole Blood 104 mg/dL (70-110)
[2023-02-25 08:13] VITALS: TEMP 97.3
[2023-02-25] MEDS ORDERED: IOPAMIDOL M200 10 ML VIAL ONE (08:20)
[2023-02-25] MEDS ORDERED: methylPREDNISolone ACETATE 40 MG/ML 1 ML VIAL ONE (08:20)
--- NOTE | 2023-02-25 08:26 | P.PCN ---
Date of Procedure: 02/25/23 Procedure(s) Performed: PREOPERATIVE DIAGNOSIS: 1- Lumbar Degenerative Disc Diseases 2-Lumbar radiculopathy . 3-lumbar foramina stenosis POSTOPERATIVE DIAGNOSIS: 1-lumbar degenerative disc disease. 2-lumbar Radiculopathy. 3-lumbar foramina stenosis. PROCEDURE 1. Lumbar epidural steroid injection under fluoroscopic guidance at the L5-S1 level. (Fluoroscopy imaging was available in radiology department) 2. Lumbar epidurogram. ANESTHESIA: Lidocaine 1% 3 and then only. EBL: Minimal PROCEDURE INDICATION: The patient with low back pain and radiculitis symptoms unresponsive to conservative treatment. Fluoroscopy was used to optimize visualization of the needle placement and to maximize safety. PROCEDURE DESCRIPTION / TECHNIQUE: The patient was seen and identified in the preoperative area. Risks, benefits, complications including but not limited to infections ,bleeding ,allergic reaction to the medications ,nerve damage and not complete pain releife , and alternatives were discussed with the patient. The patient agreed to proceed with the procedure and signed the consent, and vital signs were stable. Patient was taken to the OR and time out was completed. The patient was placed in the prone position on procedure table and a pillow was placed under the a bdomen to reduce lumbar lordosis. The lumbosacral area was prepped and draped in the usual sterile fashion.ere closely monitored during the procedure. Vital signs was monitered during the entire procedure. Using anterior-posterior fluoroscopy, the L5-S1 interlaminar space was identified and the skin over this site was marked and then infiltrated with 1% lidocaine subcutaneously. Subsequently, a 20-gauge Tuohy epidural needle was inserted and advanced toward the epidural space using the ``Loss of resistance technique and guided by AP and lateral fluoroscopy. The correct needle position in the epidural space was verified with the injection of 2 mL of the water soluble contrast dye Isovue 200 contrast and observing an excellent epidurogram with the epidural spread of the dye, after negative aspiration for blood and CSF and in the absence of paresthesias. Again after negative aspiration, a 6 ml mixture containing 40 mg of Depo-medrol ( Preservetive Free ), and 2 ml of preservative free Normal Saline, and 2 ml of preservative free lidocaine 1% solution was injected and a washout of epidurogram was seen. Needle was withdrawn intact, skin was cleansed, and bandages were applied. COMPLICATIONS: None DISPOSITION / PLANS: The patient was placed in a supine position and transferred to the recovery area in a stable condition for observation. There was no evidence of lower extremity motor or sensory deficit after the procedure. Patient was discharged from the recovery room after meeting discharge criteria. Home discharge instructions were given to the patient by the staff. The patient was reexamined prior to discharge. The patient will schedule a follow up in the clinic in 2-4 weeks. Patient held Plavix for 7 days
[2023-02-25 08:27] VITALS: RESP 16
--- NOTE | 2023-02-25 08:35 | FL ---
Intraoperative/procedural fluoroscopic services were provided. Total fluoroscopy time is 2.9 seconds with a total of 1 submitted images to PACS. Please see the operative/procedural note for further deta ils. DAP: [id number] mGym2
[2023-02-25 08:43] VITALS: BP 118/80; PULSE 67
== END 2023-02-25 08:51 | disposition home or self-care (01) ==
LOC: ORPAIN 07:37
PROVIDERS: ATTEND Specialist
DX: M51.16 Intervertebral disc disorders with radiculopathy, lumbar region (principal); M48.061 Spinal stenosis, lumbar region without neurogenic claudication; Z79.82 Long term (current) use of aspirin
CPT/HCPCS: 62323; J1030; Q9966

== ENCOUNTER → 2023-03-20 | Outpatient (CLI) | payer MEDICARE ==
[2023-03-20 09:26] VITALS: BP 133/77; PULSE 77; RESP 15; TEMP 98.2
--- NOTE | 2023-03-20 14:51 | P.PAINPG ---
Objective - Vital Signs Vital signs: Intake & Output 03/19/23 03/20/23 03/20/23 18:59 06:59 18:59 Weight 124.738 kg PQRS Measure Charge Sheet Comment: 62 yr old wheelchair bound male w daughter at side presents today w severe and chronic LBP x 3 mo secondary to DDD, spondylosis and facet arthropathy without myelopathy for evaluation s/p DEEDEE L5-S1. Pt states he experienced 75% pain relief x 2 wks s/p procedure. Pt states pain level is provoked at 7/10 in inten sity, constant, localized in the lower lumbar spine, tender in character w shooting pain towards the BLEs. Pain is provoked by over activity and weight bearing. Pain is alleviated by PT x 6 wks in 2017 which provoked pain, heat > ice, medications, topical, use of a wheelchair and cane for ambulatory assistance, laying supine, repositioning and rest. Oswestry axial pain score of 32. Interventional procedures include DEEDEE L5-S1 x1 Medications include [place] 7.5/325 mg QID, Neurontin, Ibu REVIEW OF ORGAN SYSTEMS: CONSTITUTIONAL: No fevers or chills. No recent weight loss. NEUROLOGICAL: + numbness and tingling along the distal extremities. No seizure disorders or headaches. MUSCULOSKELETAL: + pain PSYCHIATRIC: Denies current depression or suicidal thoughts. Physical Examinations : Constitutional : Cooperative , not in acute distress . Neurologic : Cranial nerve II to XII intact. No focal neurological deficits. Psychiatric : alert & oriented x 3. Matching mood & appropriate affect. Judgment & insight intact. Musculoskeletal : Cervical Spine Motor strength in the deltoid and biceps: Normal right side. Normal Left side Motor strength biceps and the wrist extensors: Normal right side . Normal left side Motor strength in the triceps muscle: Normal right side. Normal left side Deep tendon reflexes: Normal at the biceps. Normal at Brachioradialis. Normal at triceps Vertebral body tenderness to deep palpation over Cervical facet loading test: positive bilaterally Spurling test: positive bilaterally Neck distraction test: positive bilaterally Francisco Javier sign: positive bilaterally Lumbar spine Motor strength lower extremities ,thigh and legs 5/5 Right side , 5/5 Left side Deep tendon reflexes : Normal Knee Jerk. Normal Ankle Jerk Vertebral body tenderness over L5 Navarrete Test positive Lumbar facet Loading Test: positive Right / positive Left Range of motion of the lumbar spine Flexion 30 degrees, extension 10 degrees Straight Leg Raise test: Left/ Right positive at 35 degrees Sherri test: positive right / positive left. Severe tenderness over the Sacroiliac joint on the Right / Left sides Gaenslen test: positive bilaterally Seated flexion test: positive bilaterally. Sacral spine : Severe tenderness over the Sacroiliac joint: right side / left side Range of motion: Flexion of the lumbar spine <60 degrees Range of motion: Extension of the lumbar spine <20 degrees Gaenslen's Test positive Adam's Test positive Sherri test: positive right side / left side Thigh Thrust Test Sacral Thrust Test Imaging: MRI non contrast of lumbar spine from 02/04/23 reviewed Assessment/ Plan : Lumbar DDD Recommendation of DEEDEE L5-S1 #2. May need a series of injections for optimal pain relief. Risks, benefits of procedure discussed and pt verbalized understanding. Protocol for discontinuation/ continuation of medications jose de jesus procedure discussed. All questions answered. I have spent greater than 30 minutes on patient care today. Dr Perry was available by phone for the evaluation of this patient. The time was used to review the medical records including relevant urine studies and Prescription history (MAPs), review of the available imaging, evaluation and examination of the patient, coordination of care with the medical staff and if applicable referring physicians, as well as creation of the medical record PQRS Narrative: Smoking Status Current every day smoker Hx Alcohol Use (MH) No Home Medications: Ambulatory Orders Omeprazole [PriLOSEC] 40 mg PO HS 11/20/18 traZODone HCL 100 mg PO HS 11/20/18 Atorvastatin [Lipitor] 80 mg PO HS 07/07/19 Albuterol Sulfate [Proair Hfa] 2 puff INHALATION RT-Q6H PRN 04/30/20 Gabapentin [Neurontin] 900 mg PO TID 09/29/20 Ferrous Sulfate [Iron (65 MG Elemental)] 325 mg PO DAILY 11/14/20 Multivitamins, Thera [Multivitamin (formulary)] 1 tab PO HS 11/14/20 Aspirin EC [Ecotrin Low Dose] 81 mg PO DAILY 02/20/21 metFORMIN HCL [Glucophage] 1,000 mg PO BID 04/22/21 Clopidogrel [Plavix] 75 mg PO DAILY 30 Days #30 tab 04/24/21 Folic Acid 1 mg PO DAILY 30 Days #30 tab 04/24/21 Calcium Carbonate/Vitamin D3 [Calcium 600-D3 20 mcg (800 Unit)] 1 each PO DAILY 09/21/21 Cholecalciferol (Vitamin D3) [Vitamin D3] 250 mcg PO WEEKLY 10/25/22 Desvenlafaxine Succinate [Desvenlafaxine Succinate ER] 100 mg PO BID 10/25/22 Pramipexole [Mirapex] 0.25 mg PO HS 10/25/22 HYDROcodone/APAP 7.5-325MG [[place] 7.5-325] 1 tab PO DIRECTED PRN 02/18/23 Ibuprofen [Motrin Ib] 400 mg PO BID PRN 02/18/23 QUEtiapine FUMARATE [SEROquel] 25 mg PO HS 02/18/23 sitaGLIPtin [Januvia] 50 mg PO HS 02/18/23 Controlled Substance Measures - Controlled Substance Measures Is patient prescribed a controlled substance at discharge?: No
== END ==
LOC: PNWHC3 08:50
PROVIDERS: ATTEND Specialist
DX: M51.36 Other intervertebral disc degeneration, lumbar region (principal); F17.200 Nicotine dependence, unspecified, uncomplicated; G89.29 Other chronic pain; Z91.048 Other nonmedicinal substance allergy status; Z79.82 Long term (current) use of aspirin
CPT/HCPCS: 99211

== ENCOUNTER 2023-05-05 21:22 | Emergency (ER) | payer MEDICARE ==
--- NOTE | 2023-05-05 21:29 | ED ---
General Adult HPI - General Source: RN notes reviewed <Cassandra Harrell - Last Filed: 05/06/23 03:50> <Mirian Iyer - Last Filed: 05/06/23 08:32> - General Stated complaint: Lower abd pain and back pain Time Seen by Provider: 05/05/23 21:28 - History of Present Illness Initial comments: 62-year-old male presents to the emergency department with a chief complaint of abdominal pain that started this evening. He reports that her head sharp and had sudden onset. He reports that his symptoms resolved. He denies any known fevers, nausea, vomiting, melena, hematochezia. Patient had a bowel movement this morning which was normal for him. Denies any urinary complaints. Patient reports having a large hernia that he has had repaired multiple times. (Cassandra Harrell) - Related Data Home Medications Medication Instructions Recorded Confirmed Omeprazole [PriLOSEC] 40 mg PO HS 11/20/18 04/09/23 traZODone HCL 100 mg PO HS 11/20/18 04/09/23 Atorvastatin [Lipitor] 80 mg PO HS 07/07/19 04/09/23 Albuterol Sulfate [Proair Hfa] 2 puff INHALATION RT-Q6H PRN 04/30/20 04/09/23 Gabapentin [Neurontin] 900 mg PO TID 09/29/20 04/09/23 Ferrous Sulfate [Iron (65 MG 325 mg PO DAILY 11/14/20 04/09/23 Elemental)] Multivitamins, Thera [Multivitamin 1 tab PO HS 11/14/20 04/09/23 (formulary)] Aspirin EC [Ecotrin Low Dose] 81 mg PO DAILY 02/20/21 04/09/23 metFORMIN HCL [Glucophage] 1,000 mg PO BID 04/22/21 04/09/23 Calcium Carbonate/Vitamin D3 1 each PO DAILY 09/21/21 04/09/23 [Calcium 600-D3 20 mcg (800 Unit)] Cholecalciferol (Vitamin D3) 250 mcg PO WEEKLY 10/25/22 04/09/23 [Vitamin D3] Desvenlafaxine Succinate 100 mg PO BID 10/25/22 04/09/23 [Desvenlafaxine Succinate ER] Pramipexole [Mirapex] 0.25 mg PO HS 10/25/22 04/09/23 HYDROcodone/APAP 7.5-325MG [[place] 1 tab PO DIRECTED PRN 02/18/23 04/09/23 7.5-325] Ibuprofen [Motrin Ib] 400 mg PO BID PRN 02/18/23 04/09/23 QUEtiapine FUMARATE [SEROquel] 25 mg PO HS 02/18/23 04/09/23 sitaGLIPtin [Januvia] 50 mg PO HS 02/18/23 04/09/23 Previous Rx's Medication Instructions Recorded Clopidogrel [Plavix] 75 mg PO DAILY 30 Days #30 tab 04/24/21 Folic Acid 1 mg PO DAILY 30 Days #30 tab 04/24/21 Allergies Allergy/AdvReac Type Severity Reaction Status Date / Time adhesive Allergy red rash Verified 05/05/23 22:17 to skin Review of Systems ROS Other: All systems not noted in ROS Statement are negative. <Cassandra Harrell - Last Filed: 05/06/23 03:50> ROS Other: All systems not noted in ROS Statement are negative. <Mirian Iyer - Last Filed: 05/06/23 08:32> ROS Statement: Those systems with pertinent positive or pertinent negative responses have been documented in the HPI. Past Medical History Past Medical History: Asthma, Cancer, COPD, Diabetes Mellitus, Deep Vein Thrombosis (DVT), GERD/Reflux, Hyperlipidemia, Hypertension, Sleep Apnea/CPAP/BIPAP Additional Past Medical History / Comment(s): Colon cancer diagnosed 10/01/20. P arathyroid cancer. Recurrent abdominal infections and wounds from hernia repair and mesh, wound vac in past. Edema BLE. Kidney stones History of Any Multi-Drug Resistant Organisms: MRSA Date of last positivie culture/infection: unk MDRO Source:: right abdomen Past Surgical History: Appendectomy, Hernia Repair, Joint Replacement Additional Past Surgical History / Comment(s): Right knee REPLACED. Hernia repair w/ mesh removal 04/10/20. Hernia mesh removed 10/01/20. 3/4 Parathyroid removal surgery 01/18/2020. Tumor removal small intestine 10/01/20 Past Anesthesia/Blood Transfusion Reactions: No Reported Reaction Additional Past Anesthesia/Blood Transfusion Reaction / Comment(s): slow to wake Smoking Status: Current some day smoker - Past Family History Mother History Unknown: Yes Family Medical History: Dementia, Diabetes Mellitus, Hyperlipidemia, Renal Disease Additional Family Medical History / Comment(s): dialysis Father Family Medical History: Coronary Artery Disease (CAD), Diabetes Mellitus <Cassandra Harrell - Last Filed: 05/06/23 03:50> General Exam <Cassandra Harrell - Last Filed: 05/06/23 03:50> - General Exam Comments Initial Comments: Visual Physical Exam Vital signs reviewed General: Well-appearing, nontoxic, no acute distress. Head: Normocephalic, atraumatic Eyes: PERRLA, EOMI ENT: Airway patent Chest: Nonlabored breathing Skin: No visual rash, normal skin tone Neuro: Alert and oriented 3 Musculoskeletal: No gross abnormalities I performed the quick note portion of this exam, verbal signature Cassandra Harrell PA-C General: Alert, in no acute distress Head: atraumatic normocephalic. Eyes PERRL, EOMI intact, mucous membranes moist Respiratory: Lungs clear to auscultation bilaterally Cardiovascular: Heart rate regular rate and rhythm Abdominal: Soft without guarding or rebound, large abdominal hernia with multiple abdominal surgical scars that appear well healed. Extremities: Normal inspection with full range of motion and normal capillary refill Neuroogic: alert and oriented 3, CN II-XII intact, able to ambulate with steady gait Skin: warm dry and intact with normal color (Cassandra Harrell) Course <Cassandra Harrell - Last Filed: 05/06/23 03:50> Vital Signs 05/05/23 05/06/23 05/06/23 22:15 03:44 03:54 Temperature 100.8 F H 99.3 F Pulse Rate 77 58 L Respiratory 18 16 Rate Blood Pressure 140/72 122/72 O2 Sat by Pulse 98 98 Oximetry 05/06/23 05/06/23 05/06/23 05:00 07:00 07:45 Temperature 98.6 F 98.2 F Pulse Rate 59 L Respiratory 16 18 Rate Blood Pressure 136/79 O2 Sat by Pulse 98 Oximetry - Reevaluation(s) Reevaluation #1: 05/06/23 01:25 patient reevaluated. Patient reports symptomatic improvement. Patient unaware if he is febrile. (Cassandra Harrell) Medical Decision Making - Lab Data Result diagrams: 05/05/23 21:34 05/05/23 21:34 <Julio CesarCassandra - Last Filed: 05/06/23 03:50> - Lab Data Result diagrams: 05/05/23 21:34 05/05/23 21:34 <JaylonMirian P - Last Filed: 05/06/23 08:32> - Medical Decision Making Was pt. sent in by a medical professional or institution (CL Kay, PLANT SCIENCES PROFESSOR, urgent care, hospital, or care home...) When possible be specific @ -[No] Did you speak to anyone other than the patient for history (EMS, parent, family, police, friend...)? What history was obtained from this source @ -[No] Did you review nursing and triage notes (agree or disagree)? Why? @ -[I reviewed and agree with nursing and triage notes] Were old charts reviewed (outside hosp., previous admission, EMS record, old EKG, old radiological studies, urgent care reports/EKG's, care home records)? Report findings @ -[No old charts were reviewed] Differential Diagnosis (chest pain, altered mental status, abdominal pain women, abdominal pain men, vaginal bleeding, weakness, fever, dyspnea, syncope, headache, dizziness, GI bleed, back pain, seizure, CVA, palpatations, mental health, musculoskeletal)? @ -[not applicable] EKG interpreted by me (3pts min.). @ -[As above] X-rays interpreted by me (1pt min.). @ -[None done] CT interpreted by me (1pt min.). @ -[None done] U/S interpreted by me (1pt. min.). @ -[None done] What testing was considered but not performed or refused? (CT, X-rays, U/S, labs)? Why? @ -[None] What meds were considered but not given or refused? Why? @ -[None] Did you discuss the management of the patient with other professionals (professionals i.e. CL Kay, PLANT SCIENCES PROFESSOR, lab, RT, psych nurse, social media senior associate, piped buttonhole machine operator, teacher, navigating officer, manager rn case)? Give summary @ -[No] Was smoking cessation discussed for >3mins.? @ -[No] Was critical care preformed (if so, how long)? @ -[No] Were there social determinants of health that impacted care today? How? (Homelessness, low income, unemployed, alcoholism, drug addiction, transportation, low edu. Level, literacy, decrease access to med. care, fpc, rehab)? @ -[No] Was there de-escalation of care discussed even if they declined (Discuss DNR or withdrawal of care, Hospice)? DNR status @ -[No] What co-morbidities impacted this encounter? (DM, HTN, Smoking, COPD, CAD, Cancer, CVA, ARF, Chemo, Hep., AIDS, mental health diagnosis, sleep apnea, morbid obesity)? @ -[None] Was patient admitted / discharged? Hospital course, mention meds given and route, prescriptions, significant lab abnormalities, going to OR and other pertinent info. Disposition pending. This is a 62-year-old male presents the emergency department with abdominal pain. Patient had a thorough history and physical exam performed on the ED. Physical exam reveals a pleasant male with non-reproducible abdominal hernia that is nontender. Otherwise heart rate regular rate and rhythm, lungs good auscultation bilaterally. Patient is febrile. Patient given Tylenol, Motrin, fluids, Toradol, Pepcid, Zofran. Patient had laboratory studies performed which were unremarkable. Patient will be signed out to KIT Stearns who assumed care pending CT results. (Cassandra Harrell) Was patient admitted / discharged? Hospital course, mention meds given and route, prescriptions, significant lab abnormalities, going to OR and other pertinent info. @ -Discharge Patient care was signed out to me, patient reported his pain resolved while awaiting CT results. Patient remained awake alert oriented and comfortable. CT results and with no acute findings there is a chronic hernia which is unchanged with no signs of incarceration. Patient comfortable plan for discharge home and continued outpatient follow-up with surgeon Dr. Darnell Undiagnosed new probemwith uncertain prognosis? @ -[No] Drug Therapy requiring intensive monitoring for toxicity (Hepari, itro, Insulin, Cardizem)? @ -[o]Were any procedures done? @ -[No] Diagnosis/symptom? @ -Ventral wall hernia, abdominal pain Acute, or hronic,or Acute on Chronic? @ -[default] Uncomplicated (without systemic symptoms) or Comlicated(systemic symptoms)? @ -[defaul] clemente effects of treatment? @ -[No] Exacerbation, Progresio, or Severe Exacerbation? @ -[No] Poses a threat to life or bodily function? How? (Chest pain, USA, IA, pneumonia, PE, COPD, DKA, ARF, appy, cholecystitis, CVA, Diverticulitis, Homicidal, Suicidal, threat to staff.. nd all critical care pts) @ -[No] (Mirian Iyer) - Lab Data Lab Results 05/05/23 05/05/23 05/05/23 Range/Units 21:34 21:34 21:34 WBC 5.4 (3.8-10.6) k/uL RBC 5.15 (4.30-5.90) m/uL Hgb 15.8 (13.0-17.5) gm/dL Hct 47.8 (39.0-53.0) % MCV 92.8 (80.0-100.0) fL MCH 30.8 (25.0-35.0) pg MCHC 33.1 (31.0-37.0) g/dL RDW 13.8 (11.5-15.5) % Plt Count 190 (150-450) k/uL MPV 7.2 Neutrophils % 67 % Lymphocytes % 23 % Monocytes % 5 % Eosinophils % 3 % Basophils % 1 % Neutrophils # 3.6 (1.3-7.7) k/uL Lymphocytes # 1.2 (1.0-4.8) k/uL Monocytes # 0.3 (0-1.0) k/uL Eosinophils # 0.2 (0-0.7) k/uL Basophils # 0.0 (0-0.2) k/uL Sodium 141 (137-145) mmol/L Potassium 3.9 (3.5-5.1) mmol/L Chloride 107 (98-107) mmol/L Carbon Dioxide 25 (22-30) mmol/L Anion Gap 9 mmol/L BUN 10 (9-20) mg/dL Creatinine 0.74 (0.66-1.25) mg/dL Est GFR (CKD-EPI)AfAm >90 (>60 ml/min/1.73 sqM) Est GFR (CKD-EPI)NonAf >90 (>60 ml/min/1.73 sqM) Glucose 146 H (74-99) mg/dL Plasma Lactic Acid Jose 1.4 (0.7-2.0) mmol/L Calcium 8.8 (8.4-10.2) mg/dL Total Bilirubin 0.4 (0.2-1.3) mg/dL AST 32 (17-59) U/L ALT 40 (4-49) U/L Alkaline Phosphatase 78 (38-126) U/L Total Protein 6.9 (6.3-8.2) g/dL Albumin 4.2 (3.5-5.0) g/dL Urine Color Urine Appearance (Clear) Urine pH (5.0-8.0) Ur Specific [place] (1.001-1.035) Urine Protein (Negative) Urine Glucose (UA) (Negative) Urine Ketones (Negative) Urine Blood (Negative) Urine Nitrite (Negative) Urine Bilirubin (Negative) Urine Urobilinogen (<2.0) mg/dL Ur Leukocyte Esterase (Negative) Influenza Type A (PCR) (Not Detectd) Influenza Type B (PCR) (Not Detectd) RSV (PCR) (Not Detectd) SARS-CoV-2 (PCR) (Not Detectd) 05/05/23 05/06/23 Range/Units 23:00 02:24 WBC (3.8-10.6) k/uL RBC (4.30-5.90) m/uL Hgb (13.0-17.5) gm/dL Hct (39.0-53.0) % MCV (80.0-100.0) fL MCH (25.0-35.0) pg MCHC (31.0-37.0) g/dL RDW (11.5-15.5) % Plt Count (150-450) k/uL MPV Neutrophils % % Lymphocytes % % Monocytes % % Eosinophils % % Basophils % % Neutrophils # (1.3-7.7) k/uL Lymphocytes # (1.0-4.8) k/uL Monocytes # (0-1.0) k/uL Eosinophils # (0-0.7) k/uL Basophils # (0-0.2) k/uL Sodium (137-145) mmol/L Potassium (3.5-5.1) mmol/L Chloride (98-107) mmol/L Carbon Dioxide (22-30) mmol/L Anion Gap mmol/L BUN (9-20) mg/dL Creatinine (0.66-1.25) mg/dL Est GFR (CKD-EPI)AfAm (>60 ml/min/1.73 sqM) Est GFR (CKD-EPI)NonAf (>60 ml/min/1.73 sqM) Glucose (74-99) mg/dL Plasma Lactic Acid Jose (0.7-2.0) mmol/L Calcium (8.4-10.2) mg/dL Total Bilirubin (0.2-1.3) mg/dL AST (17-59) U/L ALT (4-49) U/L Alkaline Phosphatase (38-126) U/L Total Protein (6.3-8.2) g/dL Albumin (3.5-5.0) g/dL Urine Color Yellow Urine Appearance Clear (Clear) Urine pH 6.5 (5.0-8.0) Ur Specific [place] 1.018 (1.001-1.035) Urine Protein Trace H (Negative) Urine Glucose (UA) Negative (Negative) Urine Ketones Negative (Negative) Urine Blood Negative (Negative) Urine Nitrite Negative (Negative) Urine Bilirubin Negative (Negative) Urine Urobilinogen <2.0 (<2.0) mg/dL Ur Leukocyte Esterase Negative (Negative) Influenza Type A (PCR) Not Detected (Not Detectd) Influenza Type B (PCR) Not Detected (Not Detectd) RSV (PCR) Not Detected (Not Detectd) SARS-CoV-2 (PCR) Not Detected (Not Detectd) Disposition <Cassandra Harrell - Last Filed: 05/06/23 03:50> Is patient prescribed a controlled substance at d/c from ED?: No <Mirian Iyer - Last Filed: 05/06/23 08:32> Clinical Impression: Ventral hernia Disposition: HOME SELF-CARE Condition: Stable Referrals: Izaiah Bond DO [Primary Care Provider] - 1-2 days Guido Jacobson MD [STAFF PHYSICIAN] - 1-2 days
[2023-05-05 22:05] LABS: ALT 40 U/L (4-49); AST 32 U/L (17-59); African American GFR (CKD) >90 (>60 ml/min/1.73 sqM); Albumin 4.2 g/dL (3.5-5.0); Alkaline Phosphatase 78 U/L (38-126); Anion Gap 9 mmol/L; Blood Urea Nitrogen 10 mg/dL (9-20); Calcium 8.8 mg/dL (8.4-10.2); Carbon Dioxide 25 mmol/L (22-30); Chloride 107 mmol/L (98-107); Glucose 146 mg/dL (74-99); Non-African American GFR(CKD) >90 (>60 ml/min/1.73 sqM); Potassium 3.9 mmol/L (3.5-5.1); Sodium 141 mmol/L (137-145); Total Bilirubin 0.4 mg/dL (0.2-1.3); Total Protein 6.9 g/dL (6.3-8.2)
[2023-05-05 22:24] LABS: Basophils % (A) 1 %; Eosinophils # (A) 0.2 k/uL (0-0.7); Eosinophils % (A) 3 %; HCT 47.8 % (39.0-53.0); HGB 15.8 gm/dL (13.0-17.5); Lymphocytes # (A) 1.2 k/uL (1.0-4.8); Lymphocytes % (A) 23 %; MCH 30.8 pg (25.0-35.0); MCHC 33.1 g/dL (31.0-37.0); MCV 92.8 fL (80.0-100.0); Mean Platelet Volume 7.2; Monocytes # (A) 0.3 k/uL (0-1.0); Monocytes % (A) 5 %; Neutrophils # (A) 3.6 k/uL (1.3-7.7); Neutrophils % (A) 67 %; Platelet Count 190 k/uL (150-450); RBC 5.15 m/uL (4.30-5.90); RDW 13.8 % (11.5-15.5); WBC 5.4 k/uL (3.8-10.6)
[2023-05-05 23:28] LABS: Appearance,Urine Clear (Clear); Bilirubin,Urine Negative (Negative); Blood,Urine Negative (Negative); Color,Urine Yellow; Glucose,Urine (UA) Negative (Negative); Ketones,Urine Negative (Negative); Leukocyte Esterase,Urine Negative (Negative); Nitrite,Urine Negative (Negative); PH, Urine 6.5 (5.0-8.0); Protein,Urine Trace (Negative); Specific Gravity,Urine 1.018 (1.001-1.035); Urobilinogen,Urine <2.0 mg/dL (<2.0)
[2023-05-06] MEDS ORDERED: FAMOTIDINE 20 MG/2 ML VIAL IV STA (01:26)
[2023-05-06] MEDS ORDERED: IBUPROFEN 600 MG TAB PO STA (01:26)
[2023-05-06] MEDS ORDERED: KETOROLAC 15 MG/ML 1 ML VIAL IVP STA (01:26)
[2023-05-06] MEDS ORDERED: SODIUM CHLORIDE 0.9% 1,000 ML IV ONE (01:26)
[2023-05-06] MEDS ORDERED: ACETAMINOPHEN TAB 325 MG TAB PO STA (01:26)
[2023-05-06] MEDS ORDERED: ONDANSETRON 4 MG/2 ML VIAL IVP STA (01:27)
--- NOTE | 2023-05-06 06:57 | CT ---
EXAM: CT Abdomen and Pelvis With Intravenous Contrast CLINICAL HISTORY: ITS.REASON CT Reason: abdominal pain TECHNIQUE: Axial computed tomography images of the abdomen and pelvis with intravenous contrast. CTDI is 39.4 mGy and DLP is 2139.5 mGy-cm. This CT exam was performed using one or more of the following dose reduction techniques: automated exposure control, adjustment of the mA and/or kV according to patient size, and/or use of iterative reconstruction technique. COMPARISON: No relevant prior studies available. FINDINGS: Lung bases: Unremarkable. No mass. No consolidation. ABDOMEN: Liver: Decreased hepatic attenuation index. Findings can be seen with hepatic steatosis. Gallbladder and bile ducts: Unremarkable. No calcified stones. No ductal dilation. Pancreas: Pancreatic fatty atrophy. No ductal dilation. Spleen: Unremarkable. No splenomegaly. Adrenals: Unremarkable. No mass. Kidneys and ureters: Nonobstructive calculi within the right kidney, the largest measuring 7 mm within the inferior pole of the left kidney. Stomach and bowel: Midline fat and bowel containing supraumbilical ventral hernia. No evidence of incarceration. Consider surgical evaluation if there is further concern. Anastomosis noted within the small bowel within the left hemiabdomen with mild dilatation measuring up to 5.7 cm. Findings may relate to denervation atrophy. No mucosal thickening. PELVIS: Appendix: No findings to suggest acute appendicitis. Bladder: Unremarkable. No mass. Reproductive: Unremarkable as visualized. ABDOMEN and PELVIS: Intraperitoneal space: Scarring in the right hemiabdomen and central abdomen. No free air. No significant fluid collection. Bones/joints: Degenerative changes in the spine. No acute fracture. No dislocation. Soft tissues: Gynecomastia. Vasculature: Atherosclerotic disease. No abdominal aortic aneurysm. Lymph nodes: Unremarkable. No enlarged lymph nodes. IMPRESSION: 1. Midline fat and bowel containing supraumbilical ventral hernia. No evidence of incarceration. Consider surgical evaluation if there is further concern. 2. Anastomosis noted within the small bowel within the left hemiabdomen with mild dilatation measuring up to 5.7 cm. Findings may relate to denervation atrophy. 3. No other acute findings. 4. Incidental findings as described.
[2023-05-06 07:25] VITALS: BP 136/79; PULSE 59; TEMP 98.2
[2023-05-06 08:02] VITALS: RESP 18
== END 2023-05-06 07:55 | disposition home or self-care (01) ==
LOC: EC 21:22
DX: K43.9 Ventral hernia without obstruction or gangrene (principal); K21.9 Gastro-esophageal reflux disease without esophagitis; I10 Essential (primary) hypertension; E11.9 Type 2 diabetes mellitus without complications; E78.5 Hyperlipidemia, unspecified; J44.9 Chronic obstructive pulmonary disease, unspecified; Z86.718 Personal history of other venous thrombosis and embolism; F17.200 Nicotine dependence, unspecified, uncomplicated; Z88.8 Allergy status to other drugs, medicaments and biological substances; Z90.49 Acquired absence of other specified parts of digestive tract; Z79.02 Long term (current) use of antithrombotics/antiplatelets; Z79.84 Long term (current) use of oral hypoglycemic drugs; Z79.82 Long term (current) use of aspirin; Z79.899 Other long term (current) drug therapy; Z20.822 Contact with and (suspected) exposure to COVID-19
CPT/HCPCS: 99284 ×2; 96374 ×2; 96375 ×3; 96361 ×3; 36415; 80053; 83605; 85025; 81003; 87636; 74177; J2405; J3490; J1885; Q9967

== ENCOUNTER → 2023-05-15 | Outpatient (CLI) | payer MEDICARE ==
[2023-05-15 09:49] VITALS: BP 121/59; PULSE 84; RESP 15; TEMP 98.2
--- NOTE | 2023-05-15 12:21 | P.PAINPG ---
PQRS Measure Charge Sheet Comment: A 62 yr old wheelchair bound male w daughter at side presents today w severe and chronic LBP x 3 mo secondary to DDD, spondylosis and facet arthropathy without myelopathy for evaluation s/p DEEDEE L5-S1 #2. Pt states he experienced 80 % pain relief x 3 wks s/p procedure. Pt states pain level is provoked at 7/10 in intensity, constant, localized in the lower lumbar spine, tender in character w shooting pain towards the BLEs. Pain is provoked by over activity and weight bearing. Pain is alleviated by PT x 6 wks in 2017 which provoked pain, heat > ice, medications, topical, use of a wheelchair and cane for ambulatory assistance, laying supine, repositioning and rest. Oswestry axial pain score of 30. Interventional procedures include DEEDEE L5-S1 x2 Medications include [place] 7.5/325 mg QID, Neurontin, Ibu REVIEW OF ORGAN SYSTEMS: CONSTITUTIONAL: No fevers or chills. No recent weight loss. NEUROLOGICAL: + numbness and tingling along the distal extremities. No seizure disorders or headaches. MUSCULOSKELETAL: + pain PSYCHIATRIC: Denies current depression or suicidal thoughts. Physical Examinations : Constitutional : Cooperative , not in acute distress . Neurologic : Cranial nerve II to XII intact. No focal neurological deficits. Psychiatric : alert & oriented x 3. Matching mood & appropriate affect. Judgment & insight intact. Musculoskeletal : Cervical Spine Motor strength in the deltoid and biceps: Normal right side. Normal Left side Motor strength biceps and the wrist extensors: Normal right side . Normal left side Motor strength in the triceps muscle: Normal right side. Normal left side Deep tendon reflexes: Normal at the biceps. Normal at Brachioradialis. Normal at triceps Vertebral body tenderness to deep palpation over Cervical facet loading test: positive bilaterally Spurling test: positive bilaterally Neck distraction test: positive bilaterally Francisco Javier sign: positive bilaterally Lumbar spine Motor strength lower extremities ,thigh and legs 5/5 Right side , 5/5 Left side Deep tendon reflexes : Normal Knee Jerk. Normal Ankle Jerk Vertebral body tenderness over L5 Navarrete Test positive Lumbar facet Loading Test: positive Right / positive Left Range of motion of the lumbar spine Flexion 30 degrees, extension 10 degrees Straight Leg Raise test: Left/ Right positive at 35 degrees Sherri test: positive right / positive left. Severe tenderness over the Sacroiliac joint on the Right / Left sides Gaenslen test: positive bilaterally Seated flexion test: positive bilaterally. Sacral spine : Severe tenderness over the Sacroiliac joint: right side / left side Range of motion: Flexion of the lumbar spine <60 degrees Range of motion: Extension of the lumbar spine <20 degrees Gaenslen's Test positive Adam's Test positive Sherri test: positive right side / left side Thigh Thrust Test Sacral Thrust Test Imaging: MRI non contrast of lumbar spine from 02/04/23 reviewed Assessment/ Plan : Lumbar DDD Recommendation of DEEDEE L5-S1 #3. May need a series of injections for optimal pain relief. Risks, benefits of procedure discussed and pt verbalized understanding. Protocol for discontinuation/ continuation of medications jose de jesus procedure discussed. All questions answered. I have spent greater than 30 minutes on patient care today. Dr Perry was available by phone for the evaluation of this patient. The time was used to review the medical records including relevant urine studies and Prescription history (MAPs), review of the available imaging, evaluation and examination of the patient, coordination of care with the medical staff and if applicable referring physicians, as well as creation of the medical record PQRS Narrative: Smoking Status Current every day smoker Hx Alcohol Use (MH) No Home Medications: Ambulatory Orders Omeprazole [PriLOSEC] 40 mg PO HS 11/20/18 traZODone HCL 100 mg PO HS 11/20/18 Atorvastatin [Lipitor] 80 mg PO HS 07/07/19 Albuterol Sulfate [Proair Hfa] 2 puff INHALATION RT-Q6H PRN 04/30/20 Gabapentin [Neurontin] 900 mg PO TID 09/29/20 Ferrous Sulfate [Iron (65 MG Elemental)] 325 mg PO DAILY 11/14/20 Multivitamins, Thera [Multivitamin (formulary)] 1 tab PO HS 11/14/20 Aspirin EC [Ecotrin Low Dose] 81 mg PO DAILY 02/20/21 metFORMIN HCL [Glucophage] 1,000 mg PO BID 04/22/21 Clopidogrel [Plavix] 75 mg PO DAILY 30 Days #30 tab 04/24/21 Folic Acid 1 mg PO DAILY 30 Days #30 tab 04/24/21 Calcium Carbonate/Vitamin D3 [Calcium 600-D3 20 mcg (800 Unit)] 1 each PO DAILY 09/21/21 Cholecalciferol (Vitamin D3) [Vitamin D3] 250 mcg PO WEEKLY 10/25/22 Desvenlafaxine Succinate [Desvenlafaxine Succinate ER] 100 mg PO BID 10/25/22 Pramipexole [Mirapex] 0.25 mg PO HS 10/25/22 HYDROcodone/APAP 7.5-325MG [[place] 7.5-325] 1 tab PO DIRECTED PRN 02/18/23 Ibuprofen [Motrin Ib] 400 mg PO BID PRN 02/18/23 QUEtiapine FUMARATE [SEROquel] 25 mg PO HS 02/18/23 sitaGLIPtin [Januvia] 50 mg PO HS 02/18/23 Controlled Substance Measures - Controlled Substance Measures Is patient prescribed a controlled substance at discharge?: No
== END ==
LOC: PNWHC3 09:03
PROVIDERS: ATTEND Specialist
DX: M51.36 Other intervertebral disc degeneration, lumbar region (principal); F17.200 Nicotine dependence, unspecified, uncomplicated; Z79.82 Long term (current) use of aspirin; Z91.048 Other nonmedicinal substance allergy status
CPT/HCPCS: 99211

== ENCOUNTER 2023-06-05 07:39 | Day surgery (SDC) | payer MEDICARE ==
[~2023-06-05 07:39] MED LIST changes: -ACETAMINOPHEN TAB 500 MG TAB PO PRN; -DEXAMETHASONE SOD PHOSPHATE 4 MG/ML 1 ML VIAL IV ONE; -HEPARIN SODIUM,PORCINE/PF 5,000 UNIT/0.5 ML SYRINGE SQ PRN; -HYDROmorphone 0.5 MG/0.5 ML SYRINGE IVP PRN; -MIDAZOLAM 2 MG/2 ML VIAL IV PRN; -ONDANSETRON 4 MG/2 ML VIAL IVP ONE; -Pre Op ABX Message 1 EACH MISC MISCELLANE ONE; -SCOPOLAMINE 1 MG/72 HR PATCH TRANSDERM ONE
[2023-06-05 08:44] VITALS: TEMP 97.6
[2023-06-05 09:17] LABS: Glucose,Whole Blood 93 mg/dL (70-110)
[2023-06-05] MEDS ORDERED: IOPAMIDOL M200 10 ML VIAL ONE (09:21)
[2023-06-05] MEDS ORDERED: methylPREDNISolone ACETATE 80 MG/ML 1 ML VIAL ONE (09:21)
[2023-06-05] MEDS ORDERED: ROPIVACAINE 5MG/ML 20ML VIAL ONE (09:21)
[2023-06-05 10:00] VITALS: BP 133/67; PULSE 64; RESP 18
--- NOTE | 2023-06-05 10:00 | FL ---
Fluoroscopy History: JUAN PABLOI Lumbar epidural steroid injection with Dr. Arzate. 2 images saved. 11 sec fluoro. .[id number] DAP
--- NOTE | 2023-06-05 10:35 | P.PCN ---
Date of Procedure: 06/05/23 Description of Procedure: PREOPERATIVE DIAGNOSIS: 1- Lumbar Degenerative Disc Diseases 2-Lumbar spondylosis with Facet arthropathy without myelopathy. 3-lumbar spinal stenosis POSTOPERATIVE DIAGNOSIS: 1-lumbar degenerative disc disease. 2-lumbar spondylosis with facet arthropathy without myelopathy. 3-lumbar spinal stenosis. PROCEDURE 1. Lumbar epidural steroid injection under fluoroscopic guidance at the L5-S1 level. (Fluoroscopy imaging was available in radiology department) 2. Lumbar epidurogram. ANESTHESIA: Lidocaine 1% only. EBL: Minimal PROCEDURE INDICATION: The patient with low back pain and radiculitis symptoms unresponsive to conservative treatment. Fluoroscopy was used to optimize visualization of the needle placement and to maximize safety. PROCEDURE DESCRIPTION / TECHNIQUE: The patient was seen and identified in the preoperative area. Risks, benefits, complications including but not limited to infections ,bleeding ,allergic reaction to the medications ,nerve damage and not complete pain releife , and alternatives were discussed with the patient. The patient agreed to proceed with the procedure and signed the consent, and vital signs were stable. Patient was taken to the OR and time out was completed. The patient was placed in the prone position on procedure table and a pillow was placed under the abdomen to reduce lumbar lordosis. The lumbosacral area was prepped and draped in the usual sterile fashion.ere closely monitored during the procedure. Vital signs was monitered during the entire procedure. Using anterior-posterior fluoroscopy, the L5-S1 interlaminar space was identified and the skin over this site was marked and then infiltrated with 1% lidocaine subcutaneously. Subsequently, a 20-gauge Tuohy epidural needle was inserted and advanced toward the epidural space using the ``Loss of resistance technique and guided by AP and lateral fluoroscopy. The correct needle position in the epidural space was verified with the injection of 2 mL of the water soluble contrast dye Isovue 200 contrast and observing an excellent epidurogram with the epidural spread of the dye, after negative aspiration for blood and CSF and in the absence of paresthesias. Again after negative aspiration, a 6 ml mixture containing 80 mg of Depo-medrol ( Preservetive Free ), and 5 ml of preservative free Normal Saline, was injected and a washout of epidurogram was seen. Needle was withdrawn intact, skin was cleansed, and bandages were applied. COMPLICATIONS: None DISPOSITION / PLANS: The patient was placed in a supine position and transferred to the recovery area in a stable condition for observation. There was no evidence of lower extremity motor or sensory deficit after the procedure. Patient was discharged from the recovery room after meeting discharge criteria. Home discharge instructions were given to the patient by the staff. The patient was reexamined prior to discharge. The patient will schedule a follow up in the clinic in 2-4 weeks.
== END 2023-06-05 09:56 | disposition home or self-care (01) ==
LOC: ORPAIN 07:39
PROVIDERS: ATTEND Pain Medicine Interventional Pain Medicine
DX: M51.16 Intervertebral disc disorders with radiculopathy, lumbar region (principal); M47.26 Other spondylosis with radiculopathy, lumbar region; M48.061 Spinal stenosis, lumbar region without neurogenic claudication; J44.9 Chronic obstructive pulmonary disease, unspecified; I82.409 Acute embolism and thrombosis of unspecified deep veins of unspecified lower extremity; Z79.899 Other long term (current) drug therapy
CPT/HCPCS: 62323; J1040; Q9966; J2795

== ENCOUNTER 2023-08-06 16:08 | Emergency (ER) | payer MEDICARE ==
--- NOTE | 2023-08-06 19:53 | ED ---
General Adult HPI - General Chief complaint: Extremity Problem,Nontraumatic Stated complaint: pain/weakness left knee Time Seen by Provider: 08/06/23 19:51 Source: patient Mode of arrival: EMS Limitations: no limitations - History of Present Illness Initial comments: 63 year old male presents to the emergency department for evaluation of left leg pain. He states that this started after he almost fell yesterday causing him to twist his leg. He reports pain is from the knee down. He admits that most of the pain is just below the knee. Reports history of neuropathy, PAD, and DVT. He is not currently on blood thinners. - Related Data Home Medications Medication Instructions Recorded Confirmed Omeprazole [PriLOSEC] 40 mg PO HS 11/20/18 08/06/23 traZODone HCL 100 mg PO HS 11/20/18 08/06/23 Atorvastatin [Lipitor] 80 mg PO DAILY 07/07/19 08/06/23 Albuterol Sulfate [Proair Hfa] 2 puff INHALATION RT-Q6H PRN 04/30/20 08/06/23 Gabapentin [Neurontin] 900 mg PO TID 09/29/20 08/06/23 metFORMIN HCL [Glucophage] 1,000 mg PO BID 04/22/21 08/06/23 Calcium Carbonate/Vitamin D3 1 tab PO DAILY 09/21/21 08/06/23 [Calcium 600-D3 20 mcg (800 Unit)] Cholecalciferol (Vitamin D3) 250 mcg PO Q7D 10/25/22 08/06/23 [Vitamin D3] Pramipexole [Mirapex] 0.25 mg PO HS 10/25/22 08/06/23 QUEtiapine FUMARATE [SEROquel] 25 mg PO HS 02/18/23 08/06/23 Budesonide/Formoterol Fumarate 2 puff INHALATION RT-BID PRN 08/06/23 08/06/23 [Symbicort 160-4.5 Mcg Inhaler] Desvenlafaxine [Pristiq ER] 100 mg PO BID 08/06/23 08/06/23 Gabapentin 800 mg PO DIRECTED 08/06/23 08/06/23 Levothyroxine Sodium [Synthroid] 50 mcg PO DAILY 08/06/23 08/06/23 Mv-Min/Folic/K1/Lycopen/Lutein 1 tab PO DAILY 08/06/23 08/06/23 [Centrum Silver Men Tablet] oxyCODONE-APAP 7.5-325MG [Percocet 1 tab PO QID PRN 08/06/23 08/06/23 7.5-325 mg] Previous Rx's Medication Instructions Recorded Clopidogrel [Plavix] 75 mg PO DAILY 30 Days #30 tab 04/24/21 Folic Acid 1 mg PO DAILY 30 Days #30 tab 04/24/21 Allergies Allergy/AdvReac Type Severity Reaction Status Date / Time adhesive Allergy red rash Verified 08/06/23 22:19 to skin Review of Systems ROS Statement: Those systems with pertinent positive or pertinent negative responses have been documented in the HPI. ROS Other: All systems not noted in ROS Statement are negative. Past Medical History Past Medical History: Asthma, Cancer, COPD, Diabetes Mellitus, Deep Vein Thrombosis (DVT), GERD/Reflux, Hyperlipidemia, Hypertension, Sleep Apnea/CPAP/BIPAP Additional Past Medical History / Comment(s): Colon cancer diagnosed 10/01/20. Parathyroid cancer. Recurrent abdominal infections and wounds from hernia repair and mesh, wound vac in past. Edema BLE. Kidney stones History of Any Multi-Drug Resistant Organisms: MRSA Date of last positivie culture/infection: unk MDRO Source:: right abdomen Past Surgical History: Appendectomy, Hernia Repair, Joint Replacement Additional Past Surgical History / Comment(s): Right knee REPLACED. Hernia repair w/ mesh removal 04/10/20. Hernia mesh removed 10/01/20. 3/4 Parathyroid removal surgery 01/18/2020. Tumor removal small intestine 10/01/20 Past Anesthesia/Blood Transfusion Reactions: No Reported Reaction Additional Past Anesthesia/Blood Transfusion Reaction / Comment(s): slow to wake Past Psychological History: Anxiety, Depression Smoking Status: Current some day smoker - Past Family History Mother History Unknown: Yes Family Medical History: Dementia, Diabetes Mellitus, Hyperlipidemia, Renal Disease Additional Family Medical History / Comment(s): dialysis Father Family Medical History: Coronary Artery Disease (CAD), Diabetes Mellitus General Exam - General Exam Comments Initial Comments: Visual Physical Exam Vital signs reviewed General: Well-appearing, nontoxic, no acute distress. Head: Normocephalic, atraumatic Eyes: PERRLA, EOMI ENT: Airway patent Chest: Nonlabored breathing Skin: No visual rash, normal skin tone Neuro: Alert and oriented 3 Musculoskeletal: No gross abnormalities Limitations: no limitations General appearance: alert, in no apparent distress Head exam: Present: atraumatic, normocephalic, normal inspection Eye exam: Present: normal appearance, PERRL, EOMI. Absent: scleral icterus, conjunctival injection, periorbital swelling ENT exam: Present: normal exam, mucous membranes moist Neck exam: Present: normal inspection. Absent: tenderness, meningismus, lymphadenopathy Respiratory exam: Present: normal lung sounds bilaterally. Absent: respiratory distress, wheezes, rales, rhonchi, stridor Cardiovascular Exam: Present: regular rate, normal rhythm, normal heart sounds. Absent: systolic murmur, diastolic murmur, rubs, gallop, clicks Extremities exam: Present: full ROM, tenderness, normal capillary refill, other (DP and PT pulses 1+ bilaterally ). Absent: pedal edema, joint swelling, calf tenderness Back exam: Present: normal inspection Neurological exam: Present: alert, oriented X3 Psychiatric exam: Present: normal affect, normal mood Skin exam: Present: warm, dry, intact, normal color. Absent: rash Course Vital Signs 08/06/23 08/06/23 08/06/23 16:11 21:20 23:35 Temperature 97.7 F 97.5 F L 97.5 F L Pulse Rate 70 58 L 57 L Respiratory 18 16 19 Rate Blood Pressure 135/75 166/90 145/81 O2 Sat by Pulse 99 95 96 Oximetry Medical Decision Making - Medical Decision Making Quick note preformed by Carmen Castillo PA-C Was pt. sent in by a medical professional or institution (CL Kay, MULTICRAFT OPERATOR, urgent care, hospital, or [facility]...) When possible be specific @ -No Did you speak to anyone other than the patient for history (EMS, parent, family, police, friend...)? What history was obtained from this source @ -No Did you review nursing and triage notes (agree or disagree)? Why? @ -I reviewed and agree with nursing and triage notes Were old charts reviewed (outside hosp., previous admission, EMS record, old EKG, old radiological studies, urgent care reports/EKG's, [facility] records)? Report findings @ -No old charts were reviewed Differential Diagnosis (chest pain, altered mental status, abdominal pain women, abdominal pain men, vaginal bleeding, weakness, fever, dyspnea, syncope, headache, dizziness, GI bleed, back pain, seizure, CVA, palpatations, mental health, musculoskeletal)? @ -Differential Musculoskeletal Muscular strain, contusion, ligament sprain, fracture, arthritis, septic arthritis, bursitis, cellulitis, muscle spasm, nerve compression, DVT, arterial occlusion, herpes zoster, electrolyte abnormality, tumor.... This is not meant to be in all inclusive list EKG interpreted by me (3pts min.). @ -none X-rays interpreted by me (1pt min.). @ -Tib/fib XR shows no acute fracture, severe osteoarthritis CT interpreted by me (1pt min.). @ -None done U/S interpreted by me (1pt. min.). @ -Us left lower extremity shows no acute DVT, avila cyst What testing was considered but not performed or refused? (CT, X-rays, U/S, labs)? Why? @ -None What meds were considered but not given or refused? Why? @ -None Did you discuss the management of the patient with other professionals (professionals i.e. , PA, MULTICRAFT OPERATOR, lab, RT, psych nurse, social sciences research scientist, cashier and salesperson, teacher, public affairs officer, case mgr)? Give summary @ -No Was smoking cessation discussed for >3mins.? @ -No Was critical care preformed (if so, how long)? @ -No Were there social determinants of health that impacted care today? How? (Homelessness, low income, unemployed, alcoholism, drug addiction, transportation, low edu. Level, literacy, decrease access to med. care, custodial, rehab)? @ -No Was there de-escalation of care discussed even if they declined (Discuss DNR or withdrawal of care, Hospice)? DNR status @ -No What co-morbidities impacted this encounter? (DM, HTN, Smoking, COPD, CAD, Cancer, CVA, ARF, Chemo, Hep., AIDS, mental health diagnosis, sleep apnea, morbid obesity)? @ -None Was patient admitted / discharged? Hospital course, mention meds given and route, prescriptions, significant lab abnormalities, going to OR and other pertinent info. @ -Discharged. Patient presented to the emergency department for evaluation of left knee pain after a twisting injury. Patient has a history of peripheral artery disease and DVT. Pulses present and equal bilaterally, no skin changes to the lower extremities. US shows no evidence of DVT, bakers cyst present. XR obtained which shows no acute fracture. Discussed findings with patient. Bandage placed around the patient's left knee. Advised patient to follow up with his primary care provider. Strict return precautions discussed. Patient understanding and agreeable with plan. Patient stable at time of discharge. Case discussed with Dr. Le Undiagnosed new problem with uncertain prognosis? @ -No Drug Therapy requiring intensive monitoring for toxicity (Heparin, Nitro, Insulin, Cardizem)? @ -No Were any procedures done? @ -No Diagnosis/symptom? @ -left knee pain, avila cyst Acute, or Chronic, or Acute on Chronic? @ -acute Uncomplicated (without systemic symptoms) or Complicated (systemic symptoms)? @ -uncomplicated Side effects of treatment? @ -No Exacerbation, Progression, or Severe Exacerbation? @ -No Poses a threat to life or bodily function? How? (Chest pain, [place], [place], pneumonia, PE, COPD, DKA, ARF, appy, cholecystitis, CVA, Diverticulitis, Homicidal, Suicidal, threat to staff... and all critical care pts) @ -No Disposition Clinical Impression: Left knee injury Disposition: HOME SELF-CARE Condition: Stable Instructions (If sedation given, give patient instructions): Knee Sprain (ED) Additional Instructions: Please follow up with your primary care provider. Return to the emergency department for new or worsening symptoms as we discussed. Is patient prescribed a controlled substance at d/c from ED?: No Referrals: Izaiah Bond DO [Primary Care Provider] - 1-2 days David Joe MD [STAFF PHYSICIAN] - 1-2 days
--- NOTE | 2023-08-06 20:39 | US ---
EXAMINATION TYPE: US venous doppler duplex LE LT DATE OF EXAM: 08/06/2023 8:23 PM COMPARISON: Most recent: 02/21/21 CLINICAL INDICATION: Male, 63 years old with history of pain, hx dvt; Left knee gave out last night, but no fall. Hx of DVT in left leg. Not on blood thinners SIDE PERFORMED: Left TECHNIQUE: The lower extremity deep venous system is examined utilizing real time linear array sonog maco with graded compression, doppler sonography and color-flow sonography. VESSELS IMAGED: Common Femoral Vein Deep Femoral Vein Greater Saphenous Vein * Femoral Vein Popliteal Vein Small Saphenous Vein * Proximal Calf Veins (* superficial vessels) Left Leg: No evidence for DVT. Cantor's cyst seen in pop fossa measuring 4.9 x 3.0 x 1.0cm IMPRESSION: Grayscale, color doppler, spectral doppler imaging performed of the deep veins of the lo wer extremities. There is normal flow, compressibility, vascular waveforms.
--- NOTE | 2023-08-06 20:58 | XR ---
EXAMINATION TYPE: XR tibia fibula LT DATE OF EXAM: 08/06/2023 8:40 PM CLINICAL INDICATION:Male, 63 years old with history of pain, twisted leg; [facility] COMPARISON: None TECHNIQUE: XR tibia fibula LT; tibia/fibula was examined in AP and lateral projections. FINDINGS: No evidence of any acute osseous pathology, joint dislocation, or soft tissue swelling is n oted. Calcaneal plantar spurring. Osteophyte formation of the tibial plateau patella and femoral cond yles. There is severe joint space narrowing. IMPRESSION: 1. No evidence of acute fracture. 2. Severe degeneration changes of the knee.
[2023-08-06 21:26] VITALS: TEMP 97.5
[2023-08-06 23:53] VITALS: BP 145/81; PULSE 57; RESP 19
== END 2023-08-06 23:35 | disposition home or self-care (01) ==
LOC: EC 16:08
DX: S89.92XA Unspecified injury of left lower leg, initial encounter (principal); E11.9 Type 2 diabetes mellitus without complications; E78.5 Hyperlipidemia, unspecified; I10 Essential (primary) hypertension; J44.89 Other specified chronic obstructive pulmonary disease; K21.9 Gastro-esophageal reflux disease without esophagitis; G47.30 Sleep apnea, unspecified; F41.9 Anxiety disorder, unspecified; F32.A Depression, unspecified; F17.200 Nicotine dependence, unspecified, uncomplicated; Z79.899 Other long term (current) drug therapy; Z79.84 Long term (current) use of oral hypoglycemic drugs; Z88.8 Allergy status to other drugs, medicaments and biological substances; X50.1XXA Overexertion from prolonged static or awkward postures, initial encounter
CPT/HCPCS: 99284

== ENCOUNTER → 2023-10-09 | Outpatient (CLI) | payer MEDICARE ==
[2023-10-09 09:44] VITALS: BP 138/76; PULSE 86; RESP 15; TEMP 98.5
--- NOTE | 2023-10-09 14:42 | P.PAINPG ---
PQRS Measure Charge Sheet Comment: A 63 yr old wheelchair bound male w daughter at side presents today w severe and chronic LBP x 3 mo secondary to DDD, spondylosis and facet arthropathy without myelopathy for evaluation s/p DEEDEE L5-S1 #3. Pt states he experienced 80 % pain relief x 4 wks s/p procedure. Pt states pain level is provoked at 7/10 in intensity, constant, localized in the lower lumbar spine, tender in character w shooting pain towards the BLEs. Pain is provoked by over activity and weight bearing. Pain is alleviated by PT x 3 wks in Aug 2023 followed by physician guided stretches daily since Sep 25 2023, heat > ice, medications, topical, use of a wheelchair and cane for ambulatory assistance, laying supine, repositioning and rest. Oswestry axial pain score of 30. Interventional procedures include DEEDEE L5-S1 x3 Medications include [place] 7.5/325 mg QID, Neurontin, Ibu REVIEW OF ORGAN SYSTEMS: CONSTITUTIONAL: No fevers or chills. No recent weight loss. NEUROLOGICAL: + numbness and tingling along the distal extremities. No seizure disorders or headaches. MUSCULOSKELETAL: + pain PSYCHIATRIC: Denies current depression or suicidal thoughts. Physical Examinations : Constitutional : Cooperative , not in acute distress . Neurologic : Cranial nerve II to XII intact. No focal neurological deficits. Psychiatric : alert & oriented x 3. Matching mood & appropriate affect. Judgment & insight intact. Musculoskeletal : Cervical Spine Motor strength in the deltoid and biceps: Normal right side. Normal Left side Motor strength biceps and the wrist extensors: Normal right side . Normal left side Motor strength in the triceps muscle: Normal right side. Normal left side Deep tendon reflexes: Normal at the biceps. Normal at Brachioradialis. Normal at triceps Vertebral body tenderness to deep palpation over Cervical facet loading test: positive bilaterally Spurling test: positive bilaterally Neck distraction test: positive bilaterally Francisco Javier sign: positive bilaterally Lumbar spine Motor strength lower extremities ,thigh and legs 5/5 Right side , 5/5 Left side Deep tendon reflexes : Normal Knee Jerk. Normal Ankle Jerk Vertebral body tenderness over L5 Navarrete Test positive Lumbar facet Loading Test: positive Right / positive Left Range of motion of the lumbar spine Flexion 30 degrees, extension 10 degrees Straight Leg Raise test: Left/ Right positive at 35 degrees Sherri test: positive right / positive left. Severe tenderness over the Sacroiliac joint on the Right / Left sides Gaenslen test: positive bilaterally Seated flexion test: positive bilaterally. Sacral spine : Severe tenderness over the Sacroiliac joint: right side / left side Range of motion: Flexion of the lumbar spine <60 degrees Range of motion: Extension of the lumbar spine <20 degrees Gaenslen's Test positive Adam's Test positive Sherri test: positive right side / left side Thigh Thrust Test Sacral Thrust Test Imaging: MRI non contrast of lumbar spine from 02/04/23 reviewed Assessment/ Plan : Lumbar DDD Recommendation of DEEDEE L5-S1 #3. May need a series of injections for optimal pain relief. Risks, benefits of procedure discussed and pt verbalized understanding. Protocol for discontinuation/ continuation of medications jose de jesus procedure discussed. All questions answered. I have spent greater than 30 minutes on patient care today. Dr Perry was available by phone for the evaluation of this patient. The time was used to review the medical records including relevant urine studies and Prescription history (MAPs), review of the available imaging, evaluation and examination of the patient, coordination of care with the medical staff and if applicable referring physicians, as well as creation of the medical record PQRS Narrative: Smoking Status Current every day smoker Hx Alcohol Use (MH) No Home Medications: Ambulatory Orders Omeprazole [PriLOSEC] 40 mg PO HS 11/20/18 traZODone HCL 100 mg PO HS 11/20/18 Atorvastatin [Lipitor] 80 mg PO DAILY 07/07/19 Albuterol Sulfate [Proair Hfa] 2 puff INHALATION RT-Q6H PRN 04/30/20 Gabapentin [Neurontin] 900 mg PO TID 09/29/20 metFORMIN HCL [Glucophage] 1,000 mg PO BID 04/22/21 Clopidogrel [Plavix] 75 mg PO DAILY 30 Days #30 tab 04/24/21 Folic Acid 1 mg PO DAILY 30 Days #30 tab 04/24/21 Calcium Carbonate/Vitamin D3 [Calcium 600-D3 20 mcg (800 Unit)] 1 tab PO DAILY 09/21/21 Cholecalciferol (Vitamin D3) [Vitamin D3] 250 mcg PO Q7D 10/25/22 Pramipexole [Mirapex] 0.25 mg PO HS 10/25/22 QUEtiapine FUMARATE [SEROquel] 25 mg PO HS 02/18/23 Budesonide/Formoterol Fumarate [Symbicort 160-4.5 Mcg Inhaler] 2 puff INHALATION RT-BID PRN 08/06/23 Desvenlafaxine [Pristiq ER] 100 mg PO BID 08/06/23 Gabapentin 800 mg PO DIRECTED 08/06/23 Levothyroxine Sodium [Synthroid] 50 mcg PO DAILY 08/06/23 Mv-Min/Folic/K1/Lycopen/Lutein [Centrum Silver Men Tablet] 1 tab PO DAILY 08/06/23 oxyCODONE-APAP 7.5-325MG [Percocet 7.5-325 mg] 1 tab PO QID PRN 08/06/23 Controlled Substance Measures - Controlled Substance Measures Is patient prescribed a controlled substance at discharge?: No
== END ==
LOC: PNWHC3 09:08
PROVIDERS: ATTEND Specialist
DX: M51.36 Other intervertebral disc degeneration, lumbar region (principal); F17.200 Nicotine dependence, unspecified, uncomplicated; Z91.048 Other nonmedicinal substance allergy status
CPT/HCPCS: 99211

== ENCOUNTER 2023-10-30 08:30 | Day surgery (SDC) | payer MEDICARE ==
[2023-10-28 10:28] VITALS: BMI 39.4
[2023-10-30 09:00] LABS: Glucose,Whole Blood 110 mg/dL (70-110)
[2023-10-30 09:28] VITALS: TEMP 97
[2023-10-30] MEDS ORDERED: methylPREDNISolone ACETATE 40 MG/ML 1 ML VIAL ONE ×2 (09:28)
[2023-10-30] MEDS ORDERED: IOPAMIDOL M200 10 ML VIAL ONE (09:28)
--- NOTE | 2023-10-30 09:34 | P.PCN ---
Date of Procedure: 10/30/23 Procedure(s) Performed: PREOPERATIVE DIAGNOSIS: 1- Lumbar Degenerative Disc Diseases 2-Lumbar radiculopathy . 3-lumbar foramina stenosis POSTOPERATIVE DIAGNOSIS: 1-lumbar degenerative disc disease. 2-lumbar Radiculopathy. 3-lumbar foramina stenosis. PROCEDURE 1. Lumbar epidural steroid injection under fluoroscopic guidance at the L5-S1 level. (Fluoroscopy imaging was available in radiology department) 2. Lumbar epidurogram. ANESTHESIA: Lidocaine 1% 3 and then only. EBL: Minimal PROCEDURE INDICATION: The patient with low back pain and radiculitis symptoms unresponsive to conservative treatment. Fluoroscopy was used to optimize visualization of the needle placement and to maximize safety. PROCEDURE DESCRIPTION / TECHNIQUE: The patient was seen and identified in the preoperative area. Risks, benefits, complications including but not limited to infections ,bleeding ,allergic reaction to the medications ,nerve damage and not complete pain releife , and alternatives were discussed with the patient. The patient agreed to proceed with the procedure and signed the consent, and vital signs were stable. Patient was taken to the OR and time out was completed. The patient was placed in the prone position on procedure table and a pillow was placed under the abdomen to reduce lumbar lordosis. The lumbosacral area was prepped and draped in the usual sterile fashion.ere closely monitored during the procedure. Vital signs was monitered during the entire procedure. Using anterior-posterior fluoroscopy, the L5-S1 interlaminar space was identified and the skin over this site was marked and then infiltrated with 1% lidocaine subcutaneously. Subsequently, a 20-gauge Tuohy epidural needle was inserted and advanced toward the epidural space using the ``Loss of resistance technique and guided by AP and lateral fluoroscopy. The correct needle position in the epidural space was verified with the injection of 2 mL of the water soluble contrast dye Isovue 200 contrast and observing an excellent epidurogram with the epidural spread of the dye, after negative aspiration for blood and CSF and in the absence of paresthesias. Again after negative aspiration, a 6 ml mixture containing 40 mg of Depo-medrol ( Preservetive Free ), and 2 ml of preservative free Normal Saline, and 2 ml of preservative free lidocaine 1% solution was injected and a washout of epidurogram was seen. Needle was withdrawn intact, skin was cleansed, and bandages were applied. COMPLICATIONS: None DISPOSITION / PLANS: The patient was placed in a supine position and transferred to the recovery area in a stable condition for observation. There was no evidence of lower extremity motor or sensory deficit after the procedure. Patient was discharged from the recovery room after meeting discharge criteria. Home discharge instructions were given to the patient by the staff. The patient was reexamined prior to discharge. The patient will schedule a follow up in the clinic in 2-4 weeks. Patient held Plavix for 7 days
[2023-10-30 10:09] VITALS: BP 127/72; PULSE 70; RESP 16
--- NOTE | 2023-10-31 08:25 | FL ---
EXAMINATION TYPE: FL guided pain mgmt statistic DATE OF EXAM: 10/30/2023 HISTORY: Fluoroscopy time Total dose area product (DAP) in uGy*m?, mGy*cm? (or similar): 0.50956 IMPRESSION: 1. Fluoroscopy time.
== END 2023-10-30 09:59 | disposition home or self-care (01) ==
LOC: ORPAIN 08:30
PROVIDERS: ATTEND Specialist
DX: M51.16 Intervertebral disc disorders with radiculopathy, lumbar region (principal); M47.26 Other spondylosis with radiculopathy, lumbar region; M48.061 Spinal stenosis, lumbar region without neurogenic claudication; E11.9 Type 2 diabetes mellitus without complications; Z79.02 Long term (current) use of antithrombotics/antiplatelets; Z79.82 Long term (current) use of aspirin
CPT/HCPCS: 62323; Q9966; J1010

== ENCOUNTER → 2023-12-04 | Outpatient (CLI) | payer MEDICARE ==
[2023-12-04 09:17] VITALS: BP 105/69; PULSE 92; RESP 16; TEMP 97.1
--- NOTE | 2023-12-04 14:31 | P.PAINPG ---
PQRS Measure Charge Sheet Comment: A 63 yr old wheelchair bound male w daughter at side presents today w severe and chronic LBP x 3 mo secondary to DDD, spondylosis and facet arthropathy without myelopathy for evaluation s/p DEEDEE L5-S1 #4. Pt states he experienced 50 % pain relief x 5 wks s/p procedure. Pt states pain level is provoked at 7/10 in intensity, constant, localized in the lower lumbar spine, tender in character w shooting pain towards the LLE. Pain is provoked by over activity and weight bearing. Pain is alleviated by PT x 3 wks in Aug 2023 followed by physician guided stretches daily since Sep 25 2023, minimal heat > ice, medications, topical, use of a wheelchair and cane for ambulatory assistance, laying supine, repositioning and rest. Oswestry axial pain score of 29. Interventional procedures include DEEDEE L5-S1 x4 Medications include Oxycodone, Neurontin, Ibu, Voltaren gel REVIEW OF ORGAN SYSTEMS: CONSTITUTIONAL: No fevers or chills. No recent weight loss. NEUROLOGICAL: + numbness and tingling along the distal extremities. No seizure disorders or headaches. MUSCULOSKELETAL: + pain PSYCHIATRIC: Denies current depression or suicidal thoughts. Physical Examinations : Constitutional : Cooperative , not in acute distress . Neurologic : Cranial nerve II to XII intact. No focal neurological deficits. Psychiatric : alert & oriented x 3. Matching mood & appropriate affect. Judgment & insight intact. Musculoskeletal : Cervical Spine Motor strength in the deltoid and biceps: Normal right side. Normal Left side Motor strength biceps and the wrist extensors: Normal right side . Normal left side Motor strength in the triceps muscle: Normal right side. Normal left side Deep tendon reflexes: Normal at the biceps. Normal at Brachioradialis. Normal at triceps Vertebral body tenderness to deep palpation over Cervical facet loading test: positive bilaterally Spurling test: positive bilaterally Neck distraction test: positive bilaterally Francisco Javier sign: positive bilaterally Lumbar spine Motor strength lower extremities ,thigh and legs 5/5 Right side , 5/5 Left side Deep tendon reflexes : Normal Knee Jerk. Normal Ankle Jerk Vertebral body tenderness Navarrete Test positive Lumbar facet Loading Test: positive Right / positive Left L4-L5, L5-S1 Range of motion of the lumbar spine Flexion 30 degrees, extension 10 degrees Straight Leg Raise test: Left/ Right positive at 35 degrees Sherri test: positive right / positive left. Severe tenderness over the Sacroiliac joint on the Right / Left sides Gaenslen test: positive bilaterally Seated flexion test: positive bilaterally. Sacral spine : Severe tenderness over the Sacroiliac joint: right side / left side Range of motion: Flexion of the lumbar spine <60 degrees Range of motion: Extension of the lumbar spine <20 degrees Gaenslen's Test positive Adam's Test positive Sherri test: positive right side / left side Thigh Thrust Test Sacral Thrust Test Imaging: MRI non contrast of lumbar spine from 02/04/23 reviewed Assessment/ Plan : Lumbar DDD Recommendation of BL MBB L3-L5 #1. May need a series of injections, up until RFA, for optimal pain relief. Risks, benefits of procedure discussed and pt verbalized understanding. Protocol for discontinuation/ continuation of medications jose de jesus procedure discussed. Minimal anesthesia including Fentanyl and Versed if clinically indicated. All questions answered. I have spent greater than 30 minutes on patient care today. Dr Perry was available by phone for the evaluation of this patient. The time was used to review the medical records including relevant urine studies and Prescription history (MAPs), review of the available imaging, evaluation and examination of the patient, coordination of care with the medical staff and if applicable referring physicians, as well as creation of the medical record PQRS Narrative: Smoking Status Current every day smoker Hx Alcohol Use (MH) No Home Medications: Ambulatory Orders Omeprazole [PriLOSEC] 40 mg PO HS 11/20/18 traZODone HCL 100 mg PO HS 11/20/18 Atorvastatin [Lipitor] 80 mg PO DAILY 07/07/19 Albuterol Sulfate [Proair Hfa] 2 puff INHALATION RT-Q6H PRN 04/30/20 metFORMIN HCL [Glucophage] 1,000 mg PO BID 04/22/21 Clopidogrel [Plavix] 75 mg PO DAILY 30 Days #30 tab 04/24/21 Folic Acid 1 mg PO DAILY 30 Days #30 tab 04/24/21 Calcium Carbonate/Vitamin D3 [Calcium 600-D3 20 mcg (800 Unit)] 1 tab PO DAILY 09/21/21 Cholecalciferol (Vitamin D3) [Vitamin D3] 250 mcg PO Q7D 10/25/22 Pramipexole [Mirapex] 0.25 mg PO HS 10/25/22 QUEtiapine FUMARATE [SEROquel] 25 mg PO HS 02/18/23 Budesonide/Formoterol Fumarate [Symbicort 160-4.5 Mcg Inhaler] 2 puff INHALATION RT-BID PRN 08/06/23 Desvenlafaxine [Pristiq ER] 100 mg PO BID 08/06/23 Gabapentin 800 mg PO TID 08/06/23 Levothyroxine Sodium [Synthroid] 50 mcg PO DAILY 08/06/23 Mv-Min/Folic/K1/Lycopen/Lutein [Centrum Silver Men Tablet] 1 tab PO DAILY 08/06/23 oxyCODONE-APAP 7.5-325MG [Percocet 7.5-325 mg] 1 tab PO QID PRN 08/06/23 Aspirin 81 mg PO DAILY 10/30/23 Controlled Substance Measures - Controlled Substance Measures Is patient prescribed a controlled substance at discharge?: No
== END ==
LOC: PNWHC3 08:03
PROVIDERS: ATTEND Specialist
DX: M51.36 Other intervertebral disc degeneration, lumbar region (principal); F12.90 Cannabis use, unspecified, uncomplicated; F17.200 Nicotine dependence, unspecified, uncomplicated; Z91.048 Other nonmedicinal substance allergy status
CPT/HCPCS: 99211

== ENCOUNTER 2023-12-26 07:24 | Day surgery (SDC) | payer MEDICARE ==
[2023-12-26 08:06] LABS: Glucose,Whole Blood 126 mg/dL (70-110)
[2023-12-26] MEDS: IV FLUID CONTINUATION 1,000 ML IV ONE (08:08)
[2023-12-26 08:10] VITALS: TEMP 98
[2023-12-26] MEDS: LACTATED RINGERS 1,000 ML IV SCH (08:12)
[2023-12-26] MEDS ORDERED: fentaNYL (PF) 50 MCG/ML 2 ML AMP ONE (08:41)
[2023-12-26] MEDS ORDERED: MIDAZOLAM 2 MG/2 ML VIAL ONE (08:41)
[2023-12-26] MEDS ORDERED: ROPIVACAINE 5MG/ML 20ML VIAL ONE (08:41)
--- NOTE | 2023-12-26 08:56 | P.PCN ---
Date of Procedure: 12/26/23 Procedure(s) Performed: PREOPERATIVE DIAGNOSIS : 1- Lumbar spondylosis with Facet Arthropathy without myelopathy . 2- Lumber degenerative disc disease POSTOPERATIVE DIAGNOSIS: 1- Lumbar spondylosis with Facet Arthropathy without myelopathy . 2- Lumber degenerative disc disease PROCEDURE: Diagnostic bilateral L3 , L4 , and L5 medial branch block under fluoroscopy guidance(fluoroscopy images available in the radiology Department ) ( To target the facet joint between Bilateral L4-5 , and L5- S1 )# 1St ANESTHESIA: moderate sedation with intravenous Versed 2 mg and Fentanyl 50 mcg. (Sedation start 08:41 ,ended at 08:51 ) EBL: Minimal COMPLICATION: None PROCEDURE INDICATION: Chronic low back pain secondary to Facet arthropathy unresponsive to conservative treatment. PROCEDURE DESCRIPTION: the patient was seen and identified in the preop holding area , risks and benefits and possible complications of the procedure and alternative were discussed with the patient, and the patient agreed to proceed with the procedure and signed the consent and vital signs monitored during the procedure and fluoroscopy was used to maximize the benefit and accuracy of the needle placement, and sedation was given to decrease patient anxiety, patient was taken to the procedure room and placed in prone position vital signs monitored in the back prepped with chlorhexidine X3 then under strict sterile technique using a right oblique fluoroscopy ,the junction of the transverse process and the superior articulating process of the right L3 , L4 , and L5 vertebra which corresponding to the fluoroscopy image of the eye of the Jh dog on the block side for the medial branches and subsequently , after local infiltration of skin and subcu tissuies with Ropivacaine 0.5 % , one mL at each level ,then 22-gauge 5 inches long Quincke-type needles , 3 needle was used , each one of them placed at the junction of the base of the transverse process and the superior articular process at the appropriate level, and the needle was advanced until the periosteum contacted, needle placement confirmed with AP oblique and lateral view and after appropriate needle placement confirmed, and after negative aspiration for heme and CSF and there was no paresthesia 1-1/2 mL of Ropivacaine 0.5% , then half mL injected at each level after negative aspiration the needle subsequently removed and the same procedure repeated for the left side at left side at L3 , L4 and L5 levels. At the end of the procedure and the needles removed and a bandage applied after the skin was cleaned the cleaning solution patient taken to recovery room in stable condition and monitors in the recovery room for 20-30 minutes and discharged home in stable condition after discharge criteria met and patient will follow up with the pain clinic in 2-4 weeks
[2023-12-26] MEDS: LACTATED RINGERS 1,000 ML IV ONE (08:58)
[2023-12-26 09:02] VITALS: RESP 16
[2023-12-26 09:15] VITALS: BP 135/86; PULSE 69
--- NOTE | 2023-12-26 09:36 | FL ---
EXAMINATION TYPE: FL guided pain mgmt statistic Intraoperative/procedural fluoroscopic services were provided. Total fluoroscopy time is 8.5 seconds with a total of 4 submitted images to PACS. Please se e the operative/procedural note for further details. DAP: 0.028 mGym2
== END 2023-12-26 09:38 | disposition home or self-care (01) ==
LOC: ORPAIN 07:24
PROVIDERS: ATTEND Specialist
DX: M47.816 Spondylosis without myelopathy or radiculopathy, lumbar region (principal); G89.29 Other chronic pain; M51.36 Other intervertebral disc degeneration, lumbar region; Z79.82 Long term (current) use of aspirin; Z79.899 Other long term (current) drug therapy
CPT/HCPCS: 64493; 64494; J2250; J3010; J2795; 99152

== ENCOUNTER → 2024-01-12 | Outpatient (CLI) | payer MEDICARE ==
[2024-01-12 08:23] VITALS: BP 113/73; PULSE 80; RESP 16
--- NOTE | 2024-01-12 14:58 | P.PAINPG ---
PQRS Measure Charge Sheet Comment: A 63 yr old wheelchair bound male w daughter at side presents today w severe and chronic LBP x 3 mo secondary to DDD, spondylosis and facet arthropathy without myelopathy for evaluation s/p BL MBB L3-L5 #1. Pt states he experienced 0 % pain relief x hrs s/p procedure. Pt states pain level is provoked at 5 /10 in intensity, constant, localized in the lower lumbar spine, tender in character w shooting pain towards the LLE. Pain is provoked by over activity and weight bearing. Pain is alleviated by PT x 3 wks in Aug 2023 followed by physician guided stretches daily since Sep 25 2023, minimal heat > ice, medications, topical, use of a wheelchair & cane for ambulatory assistance, laying supine, repositioning and rest. Oswestry axial pain score of 29. Interventional procedures include DEEDEE L5-S1 x4, BL MBB L3-L5 x1 Medications include Oxycodone, Neurontin, Ibu, Voltaren gel, Cannabis use REVIEW OF ORGAN SYSTEMS: CONSTITUTIONAL: No fevers or chills. No recent weight loss. NEUROLOGICAL: + numbness and tingling along the distal extremities. No seizure disorders or headaches. MUSCULOSKELETAL: + pain PSYCHIATRIC: Denies current depression or suicidal thoughts. Physical Examinations : Constitutional : Cooperative , not in acute distress . Neurologic : Cranial nerve II to XII intact. No focal neurological deficits. Psychiatric : alert & oriented x 3. Matching mood & appropriate affect. Judgment & insight intact. Musculoskeletal : Cervical Spine Motor strength in the deltoid and biceps: Normal right side. Normal Left side Motor strength biceps and the wrist extensors: Normal right side . Normal left side Motor strength in the triceps muscle: Normal right side. Normal left side Deep tendon reflexes: Normal at the biceps. Normal at Brachioradialis. Normal at triceps Vertebral body tenderness to deep palpation over Cervical facet loading test: positive bilaterally Spurling test: positive bilaterally Neck distraction test: positive bilaterally Francisco Javier sign: positive bilaterally Lumbar spine Motor strength lower extremities ,thigh and legs 5/5 Right side , 5/5 Left side Deep tendon reflexes : Normal Knee Jerk. Normal Ankle Jerk Vertebral body tenderness Navarrete Test positive Lumbar facet Loading Test: positive Right / positive Left L4-L5, L5-S1 Range of motion of the lumbar spine Flexion 30 degrees, extension 10 degrees Straight Leg Raise test: Left/ Right positive at 35 degrees Sherri test: positive right / positive left. Severe tenderness over the Sacroiliac joint on the Right / Left sides Gaenslen test: positive bilaterally Seated flexion test: positive bilaterally. Sacral spine : Severe tenderness over the Sacroiliac joint: right side / left side Range of motion: Flexion of the lumbar spine <60 degrees Range of motion: Extension of the lumbar spine <20 degrees Gaenslen's Test positive Adam's Test positive Sherri test: positive right side / left side Thigh Thrust Test Sacral Thrust Test Imaging: MRI non contrast of lumbar spine from 02/04/23 reviewed Assessment/ Plan : Lumbar DDD Will follow up w their orthopedic surgeon to explore additional treatment options. All questions answered. I have spent greater than 30 minutes on patient care today. Dr Perry was available by phone for the evaluation of this patient. The time was used to review the medical records including relevant urine studies and Prescription history (MAPs), review of the available imaging, evaluation and examination of the patient, coordination of care with the medical staff and if applicable referring physicians, as well as creation of the medical record PQRS Narrative: Smoking Status Current every day smoker Hx Alcohol Use (MH) No Home Medications: Ambulatory Orders Omeprazole [PriLOSEC] 40 mg PO HS 11/20/18 traZODone HCL 100 mg PO HS 11/20/18 Atorvastatin [Lipitor] 80 mg PO DAILY 07/07/19 Albuterol Sulfate [Proair Hfa] 2 puff INHALATION RT-Q6H PRN 04/30/20 metFORMIN HCL [Glucophage] 1,000 mg PO BID 04/22/21 Clopidogrel [Plavix] 75 mg PO DAILY 30 Days #30 tab 04/24/21 Folic Acid 1 mg PO DAILY 30 Days #30 tab 04/24/21 Calcium Carbonate/Vitamin D3 [Calcium 600-D3 20 mcg (800 Unit)] 1 tab PO DAILY 09/21/21 Cholecalciferol (Vitamin D3) [Vitamin D3] 250 mcg PO Q7D 10/25/22 Pramipexole [Mirapex] 0.25 mg PO HS 10/25/22 QUEtiapine FUMARATE [SEROquel] 25 mg PO HS 02/18/23 Desvenlafaxine [Pristiq ER] 100 mg PO BID 08/06/23 Gabapentin 800 mg PO TID 08/06/23 Levothyroxine Sodium [Synthroid] 50 mcg PO DAILY 08/06/23 Mv-Min/Folic/K1/Lycopen/Lutein [Centrum Silver Men Tablet] 1 tab PO DAILY 08/06/23 oxyCODONE-APAP 7.5-325MG [Percocet 7.5-325 mg] 1 tab PO QID PRN 08/06/23 Aspirin 81 mg PO DAILY 10/30/23 Fluticasone Propion/Salmeterol [Fluticasone-Salmeterol 250-50] 1 puff INHALATION DAILY 12/24/23 Ibuprofen [Motrin Ib] 200 mg PO DIRECTED PRN 12/24/23 Controlled Substance Measures - Controlled Substance Measures Is patient prescribed a controlled substance at discharge?: No
== END ==
LOC: PNWHC3 07:46
PROVIDERS: ATTEND Specialist
DX: M16.11 Unilateral primary osteoarthritis, right hip (principal); E11.40 Type 2 diabetes mellitus with diabetic neuropathy, unspecified; M51.37 Other intervertebral disc degeneration, lumbosacral region; F17.200 Nicotine dependence, unspecified, uncomplicated; Z91.048 Other nonmedicinal substance allergy status; Z79.84 Long term (current) use of oral hypoglycemic drugs
CPT/HCPCS: 99211

== ENCOUNTER → 2024-01-23 | Outpatient (CLI) | payer MEDICARE ==
--- NOTE | 2024-01-24 15:05 | MR ---
EXAMINATION TYPE: MR angio head wo con DATE OF EXAM: 01/23/2024 8:04 PM CLINICAL INDICATION:Male, 63 years old with history of R42 DIZZINESS AND GIDDINESS; PHH, Dizzy spells , Memory loss, Syncopal episodes COMPARISON: Same day MRI. Technical: 3-D [id number] Axial with MIP reconstruction created on a separate workstation.. IV Contrast: None cc Findings: Vertebral arteries: The vertebral arteries are patent. Vertebral arteries are: Left dominant. Basilar artery: The basilar artery is intact. The basilar artery bifurcation is normal. Internal Carotid arteries: The cervical, petrous, cavernous and supraclinoid segments are normal. SPENCER: Patent with no evidence of aneurysm. ACOM: Present without evidence of aneurysm. MCA: Patent with no evidence of aneurysm. ORACLE DRM CONSULTANT: Patent with no evidence of aneurysm. PCOM: Hypoplastic bilaterally. Right internal auditory Canal type I vascular loop vessel extending towards the opening of the psychology intern al auditory canal. Another vessel loops near the right trigeminal nerve. IMPRESSION: 1. No evidence of aneurysm or significant stenosis. 2. Right internal auditory Canal type I vascular loop. 3. Vascular structure wrapping around the right trigeminal nerve. Correlate for signs and symptoms o f trigeminal neuralgia.
--- NOTE | 2024-01-24 15:06 | MR ---
EXAMINATION TYPE: MR brain wo con DATE OF EXAM: 01/23/2024 8:12 PM CLINICAL INDICATION:Male, 63 years old with history of R42 DIZZINESS AND GIDDINESS; PHH, Dizzy spells , Memory loss, Syncopal episodes COMPARISON: Same day angiogram, MRI 02/06/2022. TECHNIQUE: Multi planar, multi sequence imaging was performed through the brain including: T1, T2, In version recovery, Diffusion weighted imaging, and gradient echo imaging. No gadolinium was given. FINDINGS: The chiang-white junctions, ventricular system, basal cisterns appear unremarkable. Scattered foci of high T2 signal intensity are seen within the periventricular white matter. Midline structures show n o abnormality. Diffusion-weighted imaging shows no evidence of restricted diffusion. The susceptibili ty weighted images do not reveal any evidence for micro-hemorrhage. The bone marrow signal is within normal limits. Paranasal sinuses and mastoid air cells: High T2 signal within the right mastoid air cell. Visualized orbits: Orbital contents are intact. IMPRESSION: 1. No evidence of intracranial mass or acute/subacute infarct. 2. Nonspecific white matter changes, likely secondary to small vessel ischemic disease. 3. Trace right mastoid air cell effusion.
== END | disposition home or self-care (01) ==
LOC: RADMRIMAIN 19:45
PROVIDERS: ATTEND Psychiatry & Neurology Neurology
DX: R42 Dizziness and giddiness (principal); R41.3 Other amnesia; R55 Syncope and collapse; Q14.2 Congenital malformation of optic disc
CPT/HCPCS: 70544; 70551

== ENCOUNTER → 2024-09-28 | Outpatient (CLI) | payer MEDICARE ==
--- NOTE | 2024-09-28 10:34 | CT ---
EXAMINATION TYPE: CT chest wo con DATE OF EXAM: 09/28/2024 10:23 AM COMPARISON: 05/06/2023 CLINICAL INDICATION: Male, 64 years old with history of R06.00 Dyspnea; dyspnea TECHNIQUE: Multiple axial images were obtained through the chest. Sagittal and coronal reformats were created for review. MIP was performed on a separate workstation. Contrast used: mL of (None if empty) Oral contrast used: (None if empty) CT DLP: 565.7 mGycm, Automated exposure control for dose reduction was used. FINDINGS: LUNGS/ PLEURA: No focal consolidation, pneumothorax or pleural effusion. AIRWAY: Patent and unremarkable. HEART: Size within normal limits. Mild coronary artery calcifications present. MEDIASTINUM: No gross evidence of adenopathy. VASCULATURE: Atherosclerotic calcifications are present throughout the aorta and its branches. MUSCULOSKELETAL: Mild disc degeneration changes are present throughout the thoracolumbar spine second alexandra to osteophyte formation and facet joint arthropathy. SOFT TISSUES/LYMPH NODES: Bilateral gynecomastia changes.r LOWER NECK: No significant findings. UPPER ABDOMEN: Ventral wall hernia containing loops of small or large bowel measuring up to 6.1 cm at the neck. Possibly post surgical changes of loop of bowel with sutures identified in the hernia sac left adrenal nodule most compatible with adrenal lipid rich adenoma measuring up to 20 mm. IMPRESSION: 1. No evidence for acute process. No significant emphysema or COPD. No evidence for heart failure. 2. Ventral wall hernia containing loops of small or large bowel measuring up to 6.1 cm at the neck 3. Mild to moderate coronary artery atherosclerosis. 4. Left adrenal lipid rich adrenal adenoma. Follow up recommendations for incidental pulmonary nodules, if there are any, are per [employer] [employer] or [employer]. https://radiopaedia.org/articles/amnhexzsde-colswci-evbfoikvs-ptxbzz-yiutphqtvjzlcgx-1?lang=us [facility], , 09/28/2024 10:32 AM
== END | disposition home or self-care (01) ==
LOC: RADCTMAIN 10:00
PROVIDERS: ATTEND Internal Medicine Gastroenterology
DX: J44.9 Chronic obstructive pulmonary disease, unspecified (principal); J82.83 Eosinophilic asthma; G47.33 Obstructive sleep apnea (adult) (pediatric); K43.9 Ventral hernia without obstruction or gangrene; Z72.0 Tobacco use; E27.9 Disorder of adrenal gland, unspecified
CPT/HCPCS: 71250